=== PATIENT | male | born 1970 | race Caucasian/White ===

== ENCOUNTER 2016-11-13 14:28 | Emergency (ER) | payer MEDICAID, OTHER ==
[~2016-11-13] VITALS: Ht 193 cm; Wt 156.0 kg
[~2016-11-13 14:28] MED LIST: BACT800T5 PO; CLEO300C2 PO; CLIN1CAP5 PO; SULF-154 PO
[2016-11-13 14:35] VITALS: BP 159/99; PULSE 97; RESP 18; TEMP 99.1; O2SAT 99
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
[2016-11-13 15:30] LABS: AUTOMATED NEUTROPHIL # 8.1 TH/MM3 (1.8-7.7); BASOPHIL % 0.4 % (0.0-2.0); EOSINOPHIL # 0.2 TH/MM3 (0-0.4); EOSINOPHIL % 1.9 % (0.0-4.0); HEMATOCRIT 33.4 % (39.0-51.0); HEMO FLAGS DIFF FINAL; LYMPH % 7.3 % (9.0-44.0); LYMPHOCYTE # 0.7 TH/MM3 (1.0-4.8); MEAN CELL VOLUME 92.9 FL (80.0-100.0); MEAN CORPUSCULAR HGB CONC 34.5 % (32.0-36.0); MONO % 11.5 % (0.0-8.0); NEUT % 78.9 % (16.0-70.0); PLATELET COUNT 115 TH/MM3 (150-450); RED BLOOD COUNT 3.59 MIL/MM3 (4.50-5.90); RED CELL DISTRIBUTION WIDTH 13.4 % (11.6-17.2); WHITE BLOOD COUNT 10.2 TH/MM3 (4.0-11.0)
[2016-11-13 15:43] LABS: APTT (PATIENT) 31.3 SEC (24.3-30.1); PROTHROMBIN TIME - PATIENT 11.3 SEC (9.8-11.6)
--- NOTE | 2016-11-13 16:01 | RADHPO ---
EXAM DATE/TIME: 11/13/2016 15:27 [facility] COMPARISON: US LEG LEFT VENOUS DOPPLER, June 19, 2016, 18:32. INDICATIONS : Left leg swelling and pain. MEDICAL HISTORY : Hypertension. Chronic obstructive pulmonary disease. Diabetes mellitus type 2. CHF. Sleep apnea. M orbid obese. Arthritis. Gout. Prostate cancer. MRSA. SURGICAL HISTORY : Right carpal tunnel surgery. ENCOUNTER: Initial ACUITY: 2 weeks PAIN SCORE: 8/10 LOCATION: Left leg. TECHNIQUE: Venous ultrasound of the leg was performed from the inguinal ligament to the proximal calf. Real-coral e, color Doppler and spectral tracing, compression and augmentation techniques were used. FINDINGS: There is normal compressibility of the deep venous system from the inguinal region to the proximal ca lf. No echogenic clot is seen in the lumen of the common femoral, femoral, popliteal, and posterior tibial veins. There is a normal response of the venous system to proximal and distal augmentation an d respiration. CONCLUSION: 1. No evidence of deep venous thrombosis. Hong Huffman MD on November 13, 2016 at 16:00 Board Certified Radiologist. This report was verified electronically.
[2016-11-13] MEDS ORDERED: BACT800T5 PO (16:29)
[2016-11-13] MEDS ORDERED: CLINDAMYCIN INJ 900 MG in SODIUM CHLORIDE 0.9% INJ 100 ML IV ONE (16:30)
[2016-11-13 17:42] VITALS: BP 145/81
[2017-03-04] MEDS ORDERED: PRED20 PO (09:06)
[2017-03-26] MEDS ORDERED: MULTTAB67 PO (13:47)
[2017-03-26] MEDS ORDERED: POTA10CA PO (14:02)
[2017-03-26] MEDS ORDERED: MAGO400T2 (14:02)
[2017-03-26] MEDS ORDERED: LOSA50TA PO (14:02)
[2017-03-26] MEDS ORDERED: LOPE-1 PO (14:06)
[2017-03-26] MEDS ORDERED: GAS-CAP3 PO (14:06)
[2017-03-26] MEDS ORDERED: PEPT262S PO (14:06)
[2017-03-26] MEDS ORDERED: SACC1CAP3 PO (14:06)
[2017-03-26] MEDS ORDERED: CIPR500T2 PO (15:09)
[2017-04-01] MEDS ORDERED: LOSA100T PO (10:13)
== END 2016-11-13 17:54 | disposition home or self-care (01) ==
LOC: PHED 14:28
DX: L03.116 Cellulitis of left lower limb (principal); D69.6 Thrombocytopenia, unspecified; M06.9 Rheumatoid arthritis, unspecified; F41.8 Other specified anxiety disorders; I10 Essential (primary) hypertension; Y93.89 Activity, other specified; Y99.9 Unspecified external cause status
CPT/HCPCS: 85025; 85610; 85730; 93971; 96365

== ENCOUNTER 2016-11-18 14:01 | Inpatient (IN) | payer MEDICAID, OTHER ==
[~2016-11-18] VITALS: Ht 193 cm; Wt 156.3 kg
[2016-11-18] VITALS (8 sets, daily range): BP systolic 135–149; BP diastolic 70–84; PULSE 80–96; RESP 17–18; TEMP 97.7; O2SAT 96–100
[~2016-11-18 14:01] MED LIST changes: -CLEO300C2 PO; -CLIN1CAP5 PO; -SULF-154 PO
[2016-11-18] MEDS ORDERED: ANTICRE6 PO (15:22)
[2016-11-18] MEDS ORDERED: PIPERACIL-TAZO 4.5 GM PREMIX 100 ML IV STA (16:28)
[2016-11-18] MEDS ORDERED: VANCOMYCIN INJ 2,300 MG in SODIUM CHLORID 0.9% 500 ML INJ 500 ML IV STA (16:28)
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
[2016-11-18 16:41] LABS: AUTOMATED NEUTROPHIL # 9.6 TH/MM3 (1.8-7.7); BASOPHIL # 0.2 TH/MM3 (0-0.2); BASOPHIL % 1.8 % (0.0-2.0); EOSINOPHIL # 0.4 TH/MM3 (0-0.4); EOSINOPHIL % 3.5 % (0.0-4.0); HEMATOCRIT 33.3 % (39.0-51.0); HEMO FLAGS DIFF FINAL; LYMPH % 8.3 % (9.0-44.0); MEAN CELL VOLUME 94.5 FL (80.0-100.0); MEAN CORPUSCULAR HEMOGLOBIN 32.5 PG (27.0-34.0); MEAN CORPUSCULAR HGB CONC 34.4 % (32.0-36.0); NEUT % 78.4 % (16.0-70.0); PLATELET COUNT 142 TH/MM3 (150-450); RED BLOOD COUNT 3.53 MIL/MM3 (4.50-5.90); RED CELL DISTRIBUTION WIDTH 14.1 % (11.6-17.2); WHITE BLOOD COUNT 12.2 TH/MM3 (4.0-11.0)
[2016-11-18 16:50] LABS: CHLORIDE 97 MEQ/L (98-107); SODIUM (NA) 136 MEQ/L (136-145)
[2016-11-18 16:54] LABS: ANION GAP 23 MEQ/L (5-15); BICARBONATE 16.4 MEQ/L (21.0-32.0)
[2016-11-18 16:54] LABS: INTERNATIONAL NORMALIZED RATIO 1.1 RATIO; PROTHROMBIN TIME - PATIENT 11.8 SEC (9.8-11.6)
[2016-11-18 16:57] LABS: ALT (GPT) 14 U/L (12-78); AST (GOT) 41 U/L (15-37); GLOMERULAR FILTRATION RATE 3 ML/MIN (>89)
[2016-11-18 16:58] LABS: TOTAL BILIRUBIN ADULT 0.8 MG/DL (0.2-1.0)
[2016-11-18 16:59] LABS: BLOOD UREA NITROGEN 248 MG/DL (7-18)
[2016-11-18 17:00] LABS: ALKALINE PHOSPHATASE 61 U/L (45-117)
--- NOTE | 2016-11-18 17:12 | RADHPO ---
EXAM DATE/TIME: 11/18/2016 16:49 [facility] COMPARISON: No previous studies available for comparison. INDICATIONS : Fever, swelling to legs MEDICAL HISTORY : None. SURGICAL HISTORY : None. ENCOUNTER: Initial ACUITY: 2 weeks PAIN SCORE: 0/10 LOCATION: Bilateral chest FINDINGS: The cardiac silhouette is enlarged. The lungs are grossly clear. No effusions are seen. CONCLUSION: Cardiomegaly. Derek Rider MD on November 18, 2016 at 17:05 Board Certified Radiologist. This report was verified electronically.
[2016-11-18] MEDS ORDERED: ONDANSETRON HCL 4 MG/2 ML VIAL IV PUSH ONE (18:15)
[2016-11-18] MEDS ORDERED: SODIUM POLYSTYRENE SULFONATE SUSP 15 GM/60 ML CUP PO ONE (19:15)
[2016-11-18] MEDS ORDERED: CHLORHEXIDINE GLUCONATE 2 % 1 PACK (2 CLOTHS) TOP PRN (19:30)
[2016-11-18] MEDS ORDERED: ACETAMINOPHEN 325 MG TAB PO PRN (19:30)
[2016-11-18] MEDS ORDERED: Vancomycin Consult Pharmacy 1 EA OTHER SCH (19:30)
[2016-11-18] MEDS ORDERED: MISCELLANEOUS NURSING INFORMATION XX SCH (19:30)
[2016-11-18] MEDS ORDERED: BISACODYL 10 MG SUPP PR PRN (19:30)
[2016-11-18] MEDS: SODIUM CHLORIDE 0.9% FLUSH 5 ML FLUSH FLUSH SCH (20:12)
[2016-11-18] MEDS: ONDANSETRON HCL 4 MG/2 ML VIAL IVP PRN (20:16)
[2016-11-18 21:10] LABS: BLOOD, URINE LARGE (NEG); GLUCOSE,URINE NEG (NEG); KETONE, URINE NEG (NEG); NITRITE,URINE NEG (NEG); PH, URINE 5.5 (5.0-8.5)
[2016-11-18 21:25] LABS: METHOD OF COLLECTION A; URINE COLOR AMBER (YELLW/STRAW)
[2016-11-18 21:26] LABS: MUCUS URINE FEW /lpf (OCC)
[2016-11-18 21:27] LABS: COMMENT (UR) CULT NOT INDICATED; CULTURE IF INDICATED CULT NOT INDICATED
[2016-11-18 21:28] LABS: HYALINE CAST, URINE 0-2 /lpf (RARE); TRANSITIONAL EPI CELLS, URINE 0-5 /hpf
[2016-11-18] MEDS: LORazepam 2 MG/ML VIAL IV PUSH PRN (21:50)
[2016-11-18] MEDS: PIPERACIL-TAZO 2.25 GM PREMIX 50 ML IV SCH (23:46)
[2016-11-19] VITALS (19 sets, daily range): BP systolic 115–158; BP diastolic 70–100; PULSE 78–117; RESP 18–22; TEMP 97.4–98.2; O2SAT 94–100
[2016-11-19] MEDS ORDERED: diphenhydrAMINE HCL 50 MG/ML VIAL IV PUSH PRN
[2016-11-19] MEDS: MORPHINE SULFATE 4 MG/ML INJ IV PRN (01:23)
[2016-11-19] MEDS: CHLORHEXIDINE GLUCONATE 2 % 1 PACK (2 CLOTHS) TOP SCH (04:00)
[2016-11-19] MEDS: ONDANSETRON HCL 4 MG/2 ML VIAL IVP PRN (05:06)
[2016-11-19 05:12] LABS: AUTOMATED NEUTROPHIL # 5.7 TH/MM3 (1.8-7.7); BASOPHIL # 0.1 TH/MM3 (0-0.2); BASOPHIL % 0.8 % (0.0-2.0); EOSINOPHIL # 0.5 TH/MM3 (0-0.4); EOSINOPHIL % 6.1 % (0.0-4.0); HEMATOCRIT 29.6 % (39.0-51.0); LYMPH % 12.3 % (9.0-44.0); MEAN CELL VOLUME 93.9 FL (80.0-100.0); MEAN CORPUSCULAR HEMOGLOBIN 32.7 PG (27.0-34.0); MEAN CORPUSCULAR HGB CONC 34.8 % (32.0-36.0); MONO % 12.8 % (0.0-8.0); PLATELET COUNT 92 TH/MM3 (150-450); RED BLOOD COUNT 3.15 MIL/MM3 (4.50-5.90); RED CELL DISTRIBUTION WIDTH 14.4 % (11.6-17.2); WHITE BLOOD COUNT 8.3 TH/MM3 (4.0-11.0)
[2016-11-19 05:13] LABS: HEMO FLAGS AUTO DIFF
[2016-11-19] MEDS: PIPERACIL-TAZO 2.25 GM PREMIX 50 ML IV SCH ×4 (05:57→23:35)
[2016-11-19 07:01] LABS: BLOOD UREA NITROGEN 249 MG/DL (7-18)
[2016-11-19 07:02] LABS: ALKALINE PHOSPHATASE 56 U/L (45-117); ALT (GPT) 13 U/L (12-78); AST (GOT) 19 U/L (15-37); GLOMERULAR FILTRATION RATE 3 ML/MIN (>89)
[2016-11-19 07:03] LABS: ANION GAP 20 MEQ/L (5-15); BICARBONATE 13.8 MEQ/L (21.0-32.0); CHLORIDE 100 MEQ/L (98-107); POTASSIUM 5.4 MEQ/L (3.5-5.1); SODIUM (NA) 134 MEQ/L (136-145); TOTAL BILIRUBIN ADULT 0.7 MG/DL (0.2-1.0)
[2016-11-19 07:49] LABS: PLATELET ESTIMATE SMEAR LOW (NORMAL); PLATELET MORPHOLOGY NORMAL (NORMAL); SCAN/DIFF AUTO DIFF CONFIRMED
[2016-11-19] MEDS ORDERED: SODIUM CHLOR 0.9% 1000 ML INJ 1,000 ML IV PRN ×2 (09:14)
--- NOTE | 2016-11-19 09:14 | PD.CONS ---
[facility] Service Nephrology Consult Requested By Reason for Consult Acute Renal Failure Primary Care Physician No Primary Care Physician History of Present Illness This is a morbidly obese 46 y/o male who presented to ER with nausea/ vomiting. Found to be in renal failure with Cr 17.2, BUN 249, K 5.4, CO2 13. We were consulted for further management. After discussion, the patient reports decreased urine output for approximately 4 weeks with associated nausea/ vomiting. On the he was given Bactrim for suspected cellulitis but he had worsening nausea/vomiting and was switched to unknown alternative antibiotic. Today he is sleepy, confused, reporting decreased urine output. A bejarano is not in place. Of note he was taking Aleve BID until the around the . He is a full code at this time. (Helen Gaspar) Review of Systems Constitutional: COMPLAINS OF: Fatigue, Weight gain, Change in appetite Cardiovascular: COMPLAINS OF: Lower Extremity Edema Gastrointestinal: COMPLAINS OF: Nausea, Vomiting, DENIES: Constipation ( Helen Gaspar) Past Family Social History Allergies: Coded Allergies: Bactrim (Verified Allergy, Severe, 11/19/16) Past Medical History Previous cellulitis Morbid obesity Past Surgical History Jaw, finger Reported Medications None Active Ordered Medications Current Medications Medications (Trade) Dose Ordered Sig/Noni Route Start Time Stop Time Status Last Admin (Zosyn 2.25 Gm Premix) 50 ml @ 100 mls/hr Q6H IV 11/19/16 00:00 11/19/16 05:57 (NS Flush) 2 ml UNSCH PRN FLUSH 11/18/16 19:30 (NS Flush) 2 ml BID FLUSH 11/18/16 21:00 11/19/16 09:23 (Zofran Inj) 4 mg Q6H PRN IVP 11/18/16 19:30 11/19/16 05:06 (Dulcolax Supp) 10 mg DAILY PRN ND 11/18/16 19:30 (Tylenol) 650 mg Q6H PRN PO 11/18/16 19:30 (Milo 5-325 Mg) 1 tab Q4H PRN PO 11/18/16 19:30 (Morphine Inj) 2 mg Q3H PRN IV 11/18/16 19:30 11/19/16 01:23 Miscellaneous Information 1 Q361D XX 11/18/16 19:30 11/18/16 19:30 (Chlorhexidine 2% Cloth) 3 pack Taper DAILY@04 TOP 11/19/16 04:00 11/15/17 03:59 (Chlorhexidine 2% Cloth) 3 pack UNSCH PRN TOP 11/18/16 19:30 (Ativan Inj) 1 mg Q4H PRN IV PUSH 11/18/16 21:30 11/18/16 21:50 Diphenhydramine HCl 25 mg 25 mg Q4H PRN IV PUSH 11/19/16 00:00 11/18/16 23:59 Methylprednisolone Sodium Succinate 500 mg/Dextrose 100 ml @ 200 mls/hr DAILY IV 11/19/16 09:15 11/22/16 09:00 11/19/16 11:26 (NS 1000 ml Inj) 1,000 ml @ 0 mls/hr Q0M PRN IV 11/19/16 09:14 Heparin Sodium (Porcine) 8000 units 8,000 units UNSCH PRN IVF 11/19/16 09:15 Sodium Chloride 1,000 ml @ 200 mls/hr Q5H PRN IV 11/19/16 09:14 (NS 1000 ml Inj) 1,000 ml @ 0 mls/hr Q0M PRN IV 11/19/16 09:14 (Mannitol Inj) 12.5 gm UNSCH PRN IV 11/19/16 09:15 (Albumin 25% Inj) 25 gm UNSCH PRN IV 11/19/16 09:15 (NS Flush) 5 ml UNSCH PRN IVF 11/19/16 09:15 (Heparin Inj) UNSCH PRN .XX 11/19/16 09:15 (Gentamicin (Dialysis) Inj) 20 mg UNSCH PRN IV 11/19/16 09:15 (Zofran Inj) 4 mg UNSCH PRN IV 11/19/16 09:15 (Tylenol) 650 mg UNSCH PRN PO 11/19/16 09:15 (Benadryl) 25 mg UNSCH PRN PO 11/19/16 09:15 (Nitrostat Sl) 0.4 mg UNSCH PRN SL 11/19/16 09:15 (Catapres) 0.1 mg UNSCH PRN PO 11/19/16 09:15 (Gelfoam 12 Mm/7 Mm Top) 1 foam UNSCH PRN TOP 11/19/16 09:15 Family History No hx of renal disorders He has CAD in his family history Social History , lives alone locally He is a non smoker Heavy ETOH, quit 13 mo ago Captain by trade, 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 No drug use Independent, full code (Helen Gaspar) Physical Exam Vital Signs Vital Signs Date Time Temp Pulse Resp B/P Pulse Ox O2 Delivery O2 Flow Rate FiO2 11/19/16 08:16 78 11/19/16 07:59 78 11/19/16 03:08 81 11/19/16 03:08 97.4 87 18 143/82 97 11/19/16 02:12 93 18 115/70 98 11/19/16 01:50 80 18 136/82 100 Room Air 11/19/16 01:50 80 18 100 Room Air 11/19/16 01:48 18 11/18/16 23:32 83 18 98 Room Air 11/18/16 23:32 83 18 137/83 98 Room Air 11/18/16 22:36 96 18 135/70 99 Room Air 11/18/16 21:21 82 18 96 Room Air 11/18/16 21:21 82 18 135/76 96 Room Air 11/18/16 20:13 80 18 148/81 100 Room Air 11/18/16 19:04 80 18 140/72 100 Room Air 11/18/16 19:04 82 18 100 Room Air 11/18/16 17:52 89 17 148/76 100 Room Air 11/18/16 16:45 97 Room Air 11/18/16 14:09 97.7 91 18 149/84 99 Physical Exam Morbidly obese male, sleeping, takes time to converse due to confusion once awake, oriented x 3 but slow to answer Lungs: clear but diminished in bases Abd: round, obese, non tender, no hernias CV: S1/S2, regular rate/rhythm Ext: 2+ edema, some erythema bilaterally; macular rash on right Laboratory Laboratory Tests Test 11/18/16 11/18/16 11/18/16 11/19/16 16:35 17:47 20:40 04:36 White Blood Count 12.2 8.3 Red Blood Count 3.53 3.15 Hemoglobin 11.5 10.3 Hematocrit 33.3 29.6 Mean Corpuscular Volume 94.5 93.9 Mean Corpuscular Hemoglobin 32.5 32.7 Mean Corpuscular Hemoglobin 34.4 34.8 Concent Red Cell Distribution Width 14.1 14.4 Platelet Count 142 92 Mean Platelet Volume 8.2 7.8 Neutrophils (%) (Auto) 78.4 68.0 Lymphocytes (%) (Auto) 8.3 12.3 Monocytes (%) (Auto) 8.0 12.8 Eosinophils (%) (Auto) 3.5 6.1 Basophils (%) (Auto) 1.8 0.8 Neutrophils # (Auto) 9.6 5.7 Lymphocytes # (Auto) 1.0 1.0 Monocytes # (Auto) 1.0 1.1 Eosinophils # (Auto) 0.4 0.5 Basophils # (Auto) 0.2 0.1 CBC Comment DIFF FINAL AUTO DIFF Differential Comment AUTO DIFF CONFIRMED Prothrombin Time 11.8 Prothromb Time International 1.1 Ratio Activated Partial 22.0 Thromboplast Time Lactic Acid Level 0.8 Sodium Level 136 134 Potassium Level 6.0 5.4 Chloride Level 97 100 Carbon Dioxide Level 16.4 13.8 Anion Gap 23 20 Blood Urea Nitrogen 248 249 Creatinine 17.00 17.28 Estimat Glomerular Filtration 3 3 Rate Random Glucose 88 96 Calcium Level 8.1 7.9 Total Bilirubin 0.8 0.7 Aspartate Amino Transf 41 19 (AST/SGOT) Alanine Aminotransferase 14 13 (ALT/SGPT) Alkaline Phosphatase 61 56 Total Protein 6.5 5.6 Albumin 2.0 1.8 Urine Collection Type A Urine Color MIKAYLA Urine Turbidity MOD Urine pH 5.5 Urine Specific [place] 1.034 Urine Protein 300 OR GREATER Urine Glucose (UA) NEG Urine Ketones NEG Urine Occult Blood LARGE Urine Nitrite NEG Urine Bilirubin NEG Urine Leukocyte Esterase NEG Urine RBC 25-49 Urine WBC 3-5 Urine Squamous Epithelial 6-8 Cells Urine Transitional Epithelial 0-5 Cells Urine Amorphous Sediment MOD Urine Hyaline Casts 0-2 Urine Mucus FEW Microscopic Urinalysis Comment CULT NOT INDICATED Platelet Estimate LOW Platelet Morphology Comment NORMAL Date/Time Procedure Status Source Growth 11/18/16 16:35 Aerobic Blood Culture Received Blood Peripheral Pending 11/18/16 16:35 Anaerobic Blood Culture Received Blood Peripheral Pending (Helen Gaspar) Result Diagram: 11/19/16 0436 11/19/16 0436 Imaging Last 72 hours Impressions Chest X-Ray 11/18/16 1628 Signed Impressions: Service Date/Time: Friday, November 18, 2016 16:49 - CONCLUSION: Cardiomegaly. Derek Rider MD (Helen Gaspar) Assessment and Plan Problem List: (1) Acute renal failure Plan: In a patient with normal renal function in May 2016 This may have been ongoing for weeks, possibly worsened by Bactrim use he also was taking Aleve daily at that time now he has become auric will have bejarano placed, obtain CT abd/pelvis to rule out obstructive causes If that is negative, then we will proceed with dialysis vas cath to be placed, dialysis today and tomorrow, orders entered to cover interstitial diseases we will begin Solumedrol IV x 3 days, 500 mg he has proteinuria, quantification and serologies ordered no IVF required daily renal panel and urine output measurement avoid nephrotoxins (Helen Gaspar) Assessment and Plan patient was seen and examined. Etiology of SAL is unclear, will have to consider RPGN. Was on Bactrim, but it may not be culprit. Serologies ordered. Also noted thrombocytopenia. Likely needs renal biopsy. Obtain LDH and haptoglobin. Ct revealed no hydronephrosis but findings suggestive of cirrhosis with splenomegaly. Thrombocytopenia could be due to hypersplenism. (Fredo Mayer MD) Helen Gaspar Nov 19, 2016 09:14 Fredo Mayer MD Nov 20, 2016 09:26
[2016-11-19] MEDS ORDERED: NITROGLYCERIN 0.4 MG SL 25 TABS/BTL SL PRN (09:15)
[2016-11-19] MEDS ORDERED: diphenhydrAMINE HCL 25 MG CAP PO PRN (09:15)
[2016-11-19] MEDS ORDERED: MANNITOL 12.5 GM/50 ML VIAL IV PRN (09:15)
[2016-11-19] MEDS ORDERED: ACETAMINOPHEN 325 MG TAB PO PRN (09:15)
[2016-11-19] MEDS ORDERED: HEPARIN SODIUM - IV 10,000 UNITS/10 ML VIAL IVF PRN ×2 (09:15→14:15)
[2016-11-19] MEDS ORDERED: SODIUM CHLORIDE 0.9% FLUSH 5 ML FLUSH IVF PRN ×2 (09:15→14:15)
[2016-11-19] MEDS ORDERED: cloNIDine HCL 0.1 MG TAB PO PRN (09:15)
[2016-11-19] MEDS: SODIUM CHLORIDE 0.9% FLUSH 5 ML FLUSH FLUSH SCH ×2 (09:23→21:08)
--- NOTE | 2016-11-19 10:38 | HHI.HP ---
HPI Service [facility] Hospitalists Primary Care Physician No Primary Care Physician Admission Diagnosis RENAL FAILURE, CELLULITIS LEFT LEG Diagnoses: (1) Cellulitis of left leg (2) Thrombocytopenia (3) Acute renal failure Chief Complaint: Left Lower extremity cellulitis, Nausea/vomiting and abnormal BUN/creatinine Travel History International Travel<30 Days: No Contact w/Intl Traveler <30 Da: No Traveled to Known Affected Are: No History of Present Illness 46-year-old male with a history of recurrent lower extremity cellulitis was admitted to [facility] for evaluation of worsening renal function along with intractable nausea and vomiting and decreased urine output 4 weeks .Patient states on 11/09/16 after flying back in town from [place], he noticed swelling of the left lower extremity however on 11/13/16 he had erythema for which he was seen in the ED and started on Bactrim DS. After 2 days of treatment, patient has complained of nausea and vomiting and was advised to 1/2 tab, however there was no improvement. Patient was switched to a different antibiotic without any improvement. He continued to complain of extreme left lower extremity pain. On arrival in ED yesterday generate 2016 patient was found to have BUN/creatinine 2.48/17 and some electrolyte abnormalities along with thrombocytopenia. He denies any GI bleed. Review of Systems Other Other 12 systems reviewed and are negative except for the one mentioned in the history of present illness Past Family Social History Past Medical History Recovery alcoholic Past Surgical History Surgery to both lower extremities Reported Medications [Antibiotic] 1 Cap PO DIRECTED Allergies: Coded Allergies: Bactrim (Verified Allergy, Severe, 11/19/16) Family History Reviewed is significant for cancer, heart disease and diabetes Social History 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) Tobacco Use: No Substance Use: No (HX COCAINE USE, CHRONIC ALCOHOL ABUSE) Physical Exam Vital Signs Vital Signs Date Time Temp Pulse Resp B/P Pulse Ox O2 Delivery O2 Flow Rate FiO2 11/19/16 09:55 88 11/19/16 09:54 98.2 88 18 140/80 98 11/19/16 08:16 78 11/19/16 07:59 78 11/19/16 03:08 81 11/19/16 03:08 97.4 87 18 143/82 97 11/19/16 02:12 93 18 115/70 98 11/19/16 01:50 80 18 136/82 100 Room Air 11/19/16 01:50 80 18 100 Room Air 11/19/16 01:48 18 11/18/16 23:32 83 18 98 Room Air 11/18/16 23:32 83 18 137/83 98 Room Air 11/18/16 22:36 96 18 135/70 99 Room Air 11/18/16 21:21 82 18 96 Room Air 11/18/16 21:21 82 18 135/76 96 Room Air 11/18/16 20:13 80 18 148/81 100 Room Air 11/18/16 19:04 80 18 140/72 100 Room Air 11/18/16 19:04 82 18 100 Room Air 11/18/16 17:52 89 17 148/76 100 Room Air 11/18/16 16:45 97 Room Air 11/18/16 14:09 97.7 91 18 149/84 99 Physical Exam GENERAL: This is a well-nourished, well-developed obese patient, in no apparent distress. SKIN: Lower extremities both warm to touch, left with some mild erythema HEAD: Atraumatic. Normocephalic. No temporal or scalp tenderness. EYES: Pupils equal round and reactive. Extraocular motions intact. No scleral icterus. No injection or drainage. ENT: Nose without bleeding, purulent drainage or septal hematoma. Throat without erythema, tonsillar hypertrophy or exudate. Uvula midline. Airway patent. NECK: Trachea midline. No JVD or lymphadenopathy. Supple, nontender, no meningeal signs. CARDIOVASCULAR: Regular rate and rhythm without murmurs, gallops, or rubs. RESPIRATORY: Clear to auscultation. Breath sounds equal bilaterally. No wheezes , rales, or rhonchi. GASTROINTESTINAL: Abdomen soft, non-tender, nondistended. No hepato-splenomegaly , or palpable masses. No guarding. MUSCULOSKELETAL: Extremities without clubbing, cyanosis, or edema. No joint tenderness, effusion, or edema noted. No calf tenderness. Negative Homans sign bilaterally. NEUROLOGICAL: Awake and alert. Cranial nerves II through XII intact. Motor and sensory grossly within normal limits. Five out of 5 muscle strength in all muscle groups. Normal speech. Laboratory Laboratory Tests Test 11/18/16 11/18/16 11/18/16 11/19/16 16:35 17:47 20:40 04:36 White Blood Count 12.2 8.3 Red Blood Count 3.53 3.15 Hemoglobin 11.5 10.3 Hematocrit 33.3 29.6 Mean Corpuscular Volume 94.5 93.9 Mean Corpuscular Hemoglobin 32.5 32.7 Mean Corpuscular Hemoglobin 34.4 34.8 Concent Red Cell Distribution Width 14.1 14.4 Platelet Count 142 92 Mean Platelet Volume 8.2 7.8 Neutrophils (%) (Auto) 78.4 68.0 Lymphocytes (%) (Auto) 8.3 12.3 Monocytes (%) (Auto) 8.0 12.8 Eosinophils (%) (Auto) 3.5 6.1 Basophils (%) (Auto) 1.8 0.8 Neutrophils # (Auto) 9.6 5.7 Lymphocytes # (Auto) 1.0 1.0 Monocytes # (Auto) 1.0 1.1 Eosinophils # (Auto) 0.4 0.5 Basophils # (Auto) 0.2 0.1 CBC Comment DIFF FINAL AUTO DIFF Differential Comment AUTO DIFF CONFIRMED Prothrombin Time 11.8 Prothromb Time International 1.1 Ratio Activated Partial 22.0 Thromboplast Time Lactic Acid Level 0.8 Sodium Level 136 134 Potassium Level 6.0 5.4 Chloride Level 97 100 Carbon Dioxide Level 16.4 13.8 Anion Gap 23 20 Blood Urea Nitrogen 248 249 Creatinine 17.00 17.28 Estimat Glomerular Filtration 3 3 Rate Random Glucose 88 96 Calcium Level 8.1 7.9 Total Bilirubin 0.8 0.7 Aspartate Amino Transf 41 19 (AST/SGOT) Alanine Aminotransferase 14 13 (ALT/SGPT) Alkaline Phosphatase 61 56 Total Protein 6.5 5.6 Albumin 2.0 1.8 Urine Collection Type A Urine Color MIKAYLA Urine Turbidity MOD Urine pH 5.5 Urine Specific [place] 1.034 Urine Protein 300 OR GREATER Urine Glucose (UA) NEG Urine Ketones NEG Urine Occult Blood LARGE Urine Nitrite NEG Urine Bilirubin NEG Urine Leukocyte Esterase NEG Urine RBC 25-49 Urine WBC 3-5 Urine Squamous Epithelial 6-8 Cells Urine Transitional Epithelial 0-5 Cells Urine Amorphous Sediment MOD Urine Hyaline Casts 0-2 Urine Mucus FEW Microscopic Urinalysis Comment CULT NOT INDICATED Platelet Estimate LOW Platelet Morphology Comment NORMAL Date/Time Procedure Status Source Growth 11/18/16 16:35 Aerobic Blood Culture Received Blood Peripheral Pending 11/18/16 16:35 Anaerobic Blood Culture Received Blood Peripheral Pending Result Diagram: 11/19/16 0436 11/19/16 0436 Imaging Last Impressions Chest X-Ray 11/18/16 1628 Signed Impressions: Service Date/Time: Friday, November 18, 2016 16:49 - CONCLUSION: Cardiomegaly. Derek Rider MD Assessment and Plan Problem List: (1) Cellulitis of left leg ICD Code: L03.116 Status: Acute (2) Acute renal failure ICD Code: N17.9 Status: Acute (3) Thrombocytopenia ICD Code: D69.6 Status: Acute (4) Hyperkalemia ICD Code: E87.5 Status: Acute Assessment and Plan 46-year-old male with 1-Cellulitis left lower extremity: DVT ruled out with Doppler; status post vancomycin and Zosyn in ED 1 now currently on Zosyn renally dosed and follow culture 2-Acute renal failure: BUN/Cr 10/0.76 on 06/19/16 however on admission yesterday 11/18/16 BUN/creatinine 248/17. Nephrology has been consulted for evaluation for possible emergent hemodialysis as patient with decreased urine output 4 weeks. Check renal ultrasound and renal markers. Check hepatitis profile. Avoid all nephrotoxic drugs 3-Hyperkalemia: Improving status post treatment, management per nephrology 4-Thrombocytopenia: Likely medication side effect, however will check hepatitis profile 5-Intractable nausea and emesis: Check Lipase as well as CT Abdomen/Pelvis; Tx with antiemetic PRN GI Prophylaxis: PPI Code Status Full code Discussed Condition With Patient Physician Certification 2 Midnight Certification Type: Admission for Inpatient Services Order for Inpatient Services The services are ordered in accordance with Medicare regulations or non- Medicare payer requirements, as applicable. In the case of services not specified as inpatient-only, they are appropriately provided as inpatient services in accordance with the 2-midnight benchmark. Estimated LOS (days): 2 days is the estimated time the patient will need to remain in the hospital, assuming treatment plan goals are met and no additional complications. Post-Hospital Plan: Not yet determined Surendra Cooper MD Nov 19, 2016 10:38
[2016-11-19] MEDS: methylPREDNISolone SO SUCC INJ 500 MG in DEXTROSE 5% IN WATER 100ML INJ 100 ML IV SCH ×4 (10:50→11:26)
--- NOTE | 2016-11-19 11:53 | RADRPT ---
EXAM DATE/TIME: 11/19/2016 09:26 [facility] COMPARISON: CT ABDOMEN & PELVIS W CONTRAST, March 31, 2015, 16:53. INDICATIONS : Increased BUN/Creatinine. MEDICAL HISTORY : Arthritis. Substance and chronic alcohol use. SURGICAL HISTORY : Oral surgery. Abdominal surgery. Orthopedic surgery, knee and ankle. Right hand, tendon repair. ENCOUNTER: Initial ACUITY: 1 day PAIN SCORE: 0/10 LOCATION: Bilateral flank MEASUREMENTS: RIGHT KIDNEY: 14.8 x 8.2 x 6.8 cm LEFT KIDNEY: 15.5 x 6.0 x 6.1 cm FINDINGS: RIGHT KIDNEY: Renal cortex is normal in thickness and echotexture. No hydronephrosis, stone, or mass. LEFT KIDNEY: Renal cortex is normal in thickness and echotexture. No hydronephrosis, stone, or mass. BLADDER: Within normal limits given the degree of distension. CONCLUSION: Normal examination. Garrett Lopes MD on November 19, 2016 at 11:51 Board Certified Radiologist. This report was verified electronically.
[2016-11-19 12:05] LABS: HEMOGLOBIN A1b 0.8 %; HEMOGLOBIN Ao 84.5 %; HEMOGLOBIN F 1.1 %; HEMOGLOBIN LA1C 2.3 %
--- NOTE | 2016-11-19 14:06 | PD.RAD ---
Post Procedure Progress Note Pre Procedure Diagnosis: (1) Acute renal failure Post Procedure Diagnosis: (1) Acute renal failure Procedure Date: Nov 19, 2016 Supervising Radiologist: Horace Zapata Anesthesia: Local Plan of Activity Patient to Unit: ROPU Patient Condition: Good Additional Comments: Right IJ vascath placed without difficulty Catheter in good position and OK for use See PACS Report for procedural detail/treatment Horace Zapata MD Nov 19, 2016 14:06
--- NOTE | 2016-11-19 15:02 | RADRPT ---
EXAM DATE/TIME: 11/19/2016 13:56 [facility] COMPARISON: CT ABDOMEN & PELVIS W CONTRAST, March 31, 2015, 16:53. US KIDNEY/RENAL/BLADDE R, November 19, 2016, 9:26. INDICATIONS : Abdomen pain. ORAL CONTRAST: No oral contrast ingested. RADIATION DOSE: 9.96 CTDIvol (mGy) MEDICAL HISTORY : Pneumonia. SURGICAL HISTORY : Vas catheter ENCOUNTER: Initial ACUITY: 1 day PAIN SCALE: 0/10 LOCATION: Bilateral abdomen. TECHNIQUE: Volumetric scanning of the abdomen and pelvis was performed. Using automated exposure control and adjustment of the mA and/or kV according to patient size, radiation dose was kept as low as reasonably achievable to obtain optimal diagnostic quality images. FINDINGS: LOWER LUNGS: The visualized lower lungs are clear. LIVER: Lobular liver contour with normal density consistent with cirrhosis. Spleen remains enlarg ed. Varices are noted in the upper abdomen. SPLEEN: Splenomegaly PANCREAS: Within normal limits. KIDNEYS: Normal in size and shape. There is no mass, stone, or hydronephrosis. ADRENAL GLANDS: Within normal limits. VASCULAR: There is no aortic aneurysm. BOWEL/MESENTERY: The stomach, small bowel, and colon demonstrate no acute abnormality. There is no free intraperitoneal air or fluid. ABDOMINAL WALL: Within normal limits. RETROPERITONEUM: There is no lymphadenopathy. BLADDER: No wall thickening or mass. Paz catheter in place in a decompressed urinary bladder REPRODUCTIVE: Within normal limits. INGUINAL: There is no lymphadenopathy or hernia. MUSCULOSKELETAL: Within normal limits for patient age. CONCLUSION: Stable findings of cirrhosis and splenomegaly with varices. Otherwise negative. Garrett Lopes MD on November 19, 2016 at 14:57 Board Certified Radiologist. This report was verified electronically.
[2016-11-19] MEDS ORDERED: THROMBIN (TOPICAL) 5,000 UNIT VIAL ONE ×2 (16:58→19:50)
--- NOTE | 2016-11-19 17:06 | EKG ---
Date Performed: 11/18/2016 Time Performed: 19:18:30 PTAGE: 46 years EKG: Sinus rhythm with borderline 1st degree A-V block. Compared to prior tracing no significant change Borderline ECG PREVIOUS TRACING : 01/05/2008 09.10 DOCTOR: Percy Jeronimo Interpretating Date/Time 11/19/2016 17:03:44
[2016-11-19] MEDS: GELATIN 12 MM/7 MM FOAM TOP PRN ×2 (17:17→17:18)
[2016-11-19] MEDS: GENTAMICIN SULFATE (DIALYSIS USE ONLY) 20 MG/2 ML VIAL IV PRN (17:17)
[2016-11-19] MEDS: HEPARIN SODIUM - IV 10,000 UNITS/10 ML VIAL PRN (17:18)
[2016-11-19] MEDS ORDERED: GELATIN 12 MM/7 MM FOAM EXT ONE (18:01)
[2016-11-19] MEDS: ONDANSETRON HCL 4 MG/2 ML VIAL IV PRN ×2 (18:13→23:36)
[2016-11-19] MEDS: LORazepam 2 MG/ML VIAL IV PUSH PRN (18:13)
--- NOTE | 2016-11-19 18:46 | RADRPT ---
EXAM DATE/TIME: 11/19/2016 00:00 CORRECTION Corrected on: November 23, 2016; CORRECTION: Corrected examform information [facility] COMPARISON: No previous studies available for comparison. INDICATIONS : Patient is in need of thrombin injection due to post Vascath bleeding. MEDICAL HISTORY : 1. Cellulitis of left leg 2. Acute renal failure 3. Thrombocytopenia SURGICAL HISTORY : 1. Surgery to both lower extremities ENCOUNTER: Subsequent ACUITY: 1 week PAIN SCORE: 2/10 LOCATION: Left calf ACCESS SITE: Right MEDICATION(S): 1.) 2000 units Thrombin topical Topical DEVICE(S): 1.) Right IJ vein 12-7mm Gelfoam PROCEDURE : 1. hemostasis of the insertion site around a dialysis catheter The site was prepped in sterile fashion. Full sterile technique was used, including cap, mask, steri le gloves and gown and a large sterile sheet. Hand hygiene and 2% chlorhexidine and/or betadine/alco hol prep was utilized per protocol for cutaneous antisepsis. The skin and subcutaneous tissues were infiltrated with local anesthetic solution. The skin around the catheter exit site was evaluated. There was oozing from the subcutaneous tissues. The catheter was pulled back area was cauterized with a Bovie. A small patch of Gelfoam was soaked w ith 3 cc of thrombin. This was placed over top of the exit site of the catheter. Pressure dressing wa s placed above this. At the conclusion of the procedure there was no further bleeding from the insert ion site. CONCLUSION: Uncomplicated hemostasis around the catheter insertion site Horace Zapata MD on November 19, 2016 at 18:42 Board Certified Radiologist. This report was verified electronically. DR Marine Farmer on November 23, 2016 at 9:29 Board Certified Radiologist. This report was verified electronically.
--- NOTE | 2016-11-19 18:48 | RADRPT ---
EXAM DATE/TIME: 11/19/2016 13:38 [facility] COMPARISON: PERCUTANEOUS HEMOSTASIS, November 19, 2016, 0:00. INDICATIONS : Acute renal failure. Cellulitis of left leg. MEDICAL HISTORY : 1. Cellulitis of left leg 2. Acute renal failure 3. Thrombocytopenia SURGICAL HISTORY : 1. Abd surgery 2. oral surgery ENCOUNTER: Initial ACUITY: 1 week PAIN SCORE: 2/10 LOCATION: Left claf FLUORO TIME: 0.9 minutes ACCESS: Right internal jugular vein DEVICE(S): 1.) 14 [place] dual lumen 20 cm Schon catheter PROCEDURE : 1. Ultrasound guided venipuncture. 2. Fluoroscopic guidance. 3. Central line placement. The risks, benefits and alternatives to the procedure were explained and verbal and written consent w as obtained. The site was prepped in sterile fashion. Full sterile technique was used, including ca p, mask, sterile gloves and gown and a large sterile sheet. Hand hygiene and 2% chlorhexidine prep w as utilized per protocol for cutaneous antisepsis with appropriate dry time for site. The skin and subcutaneous tissues were infiltrated with local anesthetic solution. A suitable site a aislinn the vein was selected with ultrasound and fluoroscopic guidance. A small incision was made. Th e vein was accessed under direct ultrasound visualization using the micropuncture technique. The marino ropuncture set was exchanged for a 0.035 wire. The tract was dilated. The catheter was advanced int o position under direct fluoroscopic visualization. The catheter was fixed in place with suture and a sterile dressing was applied. The patient tolerated the procedure well and there were no complications. CONCLUSION: Uncomplicated line placement as above. Horace Zapata MD on November 19, 2016 at 18:46 Board Certified Radiologist. This report was verified electronically.
[2016-11-19] MEDS ORDERED: PROTAMINE SULFATE 50 MG/5 ML VIAL ONE (19:22)
[2016-11-19] MEDS: ACETAMINOPHEN/HYDROcodone 325 MG/5 MG TAB PO PRN (21:06)
[2016-11-19 21:11] LABS: MEAN CORPUSCULAR HGB CONC 36.4 % (32.0-36.0)
[2016-11-20] VITALS (20 sets, daily range): BP systolic 132–162; BP diastolic 74–98; PULSE 76–100; RESP 18–22; TEMP 97.4–98.4; O2SAT 94–98
[2016-11-20] MEDS: CHLORHEXIDINE GLUCONATE 2 % 1 PACK (2 CLOTHS) TOP SCH (04:00)
[2016-11-20] MEDS: ONDANSETRON HCL 4 MG/2 ML VIAL IV PRN ×3 (04:28→19:25)
[2016-11-20] MEDS: MORPHINE SULFATE 4 MG/ML INJ IV PRN ×3 (04:28→17:06)
[2016-11-20] MEDS: ACETAMINOPHEN/HYDROcodone 325 MG/5 MG TAB PO PRN (05:12)
[2016-11-20] MEDS: PIPERACIL-TAZO 2.25 GM PREMIX 50 ML IV SCH ×4 (05:12→23:08)
[2016-11-20 07:44] LABS: AUTOMATED NEUTROPHIL # 6.3 TH/MM3 (1.8-7.7); BASOPHIL % 0.1 % (0.0-2.0); HEMATOCRIT 28.2 % (39.0-51.0); LYMPH % 5.3 % (9.0-44.0); LYMPHOCYTE # 0.4 TH/MM3 (1.0-4.8); MEAN CORPUSCULAR HEMOGLOBIN 33.1 PG (27.0-34.0); MONO % 0.9 % (0.0-8.0); NEUT % 93.7 % (16.0-70.0); PLATELET COUNT 88 TH/MM3 (150-450); RED CELL DISTRIBUTION WIDTH 14.3 % (11.6-17.2); WHITE BLOOD COUNT 6.7 TH/MM3 (4.0-11.0)
[2016-11-20 07:54] LABS: HEMO FLAGS AUTO DIFF
[2016-11-20] MEDS: LORazepam 2 MG/ML VIAL IV PUSH PRN (08:05)
[2016-11-20 08:11] LABS: ANION GAP 20 MEQ/L (5-15); AST (GOT) 18 U/L (15-37); BICARBONATE 15.7 MEQ/L (21.0-32.0); CHLORIDE 96 MEQ/L (98-107); GLOMERULAR FILTRATION RATE 3 ML/MIN (>89); POTASSIUM 5.4 MEQ/L (3.5-5.1); SODIUM (NA) 132 MEQ/L (136-145)
[2016-11-20] MEDS: SODIUM CHLORIDE 0.9% FLUSH 5 ML FLUSH FLUSH SCH ×2 (08:14→20:42)
[2016-11-20] MEDS: methylPREDNISolone SO SUCC INJ 500 MG in DEXTROSE 5% IN WATER 100ML INJ 100 ML IV SCH ×2 (08:14)
[2016-11-20 08:15] LABS: ALKALINE PHOSPHATASE 56 U/L (45-117); ALT (GPT) 14 U/L (12-78); TOTAL BILIRUBIN ADULT 0.6 MG/DL (0.2-1.0)
[2016-11-20 08:45] LABS: BLOOD UREA NITROGEN 215 MG/DL (7-18); CREATINE KINASE 67 U/L (39-308)
[2016-11-20 09:25] LABS: PLATELET ESTIMATE SMEAR LOW (NORMAL); PLATELET MORPHOLOGY NORMAL (NORMAL); SCAN/DIFF AUTO DIFF CONFIRMED
[2016-11-20 10:12] LABS: HEPATITIS B SURFACE ANTIBODY 0 mIU/mL
--- NOTE | 2016-11-20 10:32 | HHI.PR ---
Subjective Remarks Follow-up acute kidney injury requiring emergent dialysis/cellulitis of lower extremities 11/20/16-patient seen and examined, he had emergent hemodialysis yesterday. Currently complaining of back soreness otherwise stable. Renal indices drain down slightly. Afebrile. Objective Vitals Vital Signs Date Time Temp Pulse Resp B/P Pulse Ox O2 Delivery O2 Flow Rate FiO2 11/20/16 09:16 98.0 92 18 150/82 98 11/20/16 09:16 92 11/20/16 07:50 90 11/20/16 06:00 88 11/20/16 05:00 91 11/20/16 04:00 98 11/20/16 04:00 98.4 91 151/88 94 11/20/16 03:00 94 11/20/16 02:00 93 11/20/16 01:00 100 11/20/16 00:00 97 11/20/16 00:00 97.9 97 22 150/98 94 11/19/16 23:00 106 11/19/16 22:00 101 11/19/16 22:00 98.0 103 22 158/100 96 11/19/16 21:24 98 21 11/19/16 21:00 117 11/19/16 19:00 99 11/19/16 18:17 94 11/19/16 13:02 97.8 90 18 139/80 98 11/19/16 13:01 90 11/19/16 12:59 88 11/19/16 11:38 82 11/19/16 10:36 86 I/O 11/19/16 11/19/16 11/19/16 11/20/16 11/20/16 11/20/16 07:00 15:00 23:00 07:00 15:00 23:00 Intake Total 250 ml 150 ml 1060 ml 0 ml Output Total 2000 ml 50 ml Balance 250 ml -1850 ml 1010 ml 0 ml Intake Oral 250 ml 960 ml IV Total 150 ml 100 ml 0 ml Output Urine Total 50 ml Hemodialysis 2000 ml # Voids 1 # Bowel Movements 3 Result Diagram: 11/20/1671611/20/16716 Imaging Last Impressions Catheter Placement X-Ray 11/19/16 1058 Signed Impressions: Service Date/Time: Saturday, November 19, 2016 13:38 - CONCLUSION: Uncomplicated line placement as above. Horace Zapata MD Renal Ultrasound 11/19/16 0000 Signed Impressions: Service Date/Time: Saturday, November 19, 2016 09:26 - CONCLUSION: Normal examination. Garrett Lopes MD Radiology Special Procedure 11/19/16 0000 Signed Impressions: Service Date/Time: Saturday, November 19, 2016 00:00 - CONCLUSION: Uncomplicated hemostasis around the catheter insertion site Horace Zapata MD Abdomen/Pelvis CT 11/19/16 0000 Signed Impressions: Service Date/Time: Saturday, November 19, 2016 13:56 - CONCLUSION: Stable findings of cirrhosis and splenomegaly with varices. Otherwise negative. Garrett Lopes MD Chest X-Ray 11/18/16 1628 Signed Impressions: Service Date/Time: Friday, November 18, 2016 16:49 - CONCLUSION: Cardiomegaly. Derek Rider MD Objective Remarks GENERAL: NAD SKIN: Warm and dry. Right lower extremity erythema HEAD: Normocephalic. EYES: No scleral icterus. No injection or drainage. NECK: Supple, trachea midline. No JVD or lymphadenopathy. Vas-Cath in place right neck CARDIOVASCULAR: Regular rate and rhythm without murmurs, gallops, or rubs. RESPIRATORY: Breath sounds equal bilaterally. No accessory muscle use. GASTROINTESTINAL: Abdomen soft, non-tender, nondistended. MUSCULOSKELETAL: No cyanosis, or edema. BACK: Nontender without obvious deformity. No CVA tenderness. A/P Problem List: (1) Cellulitis of left leg ICD Code: L03.116 Status: Acute (2) Acute renal failure ICD Code: N17.9 Status: Acute (3) Thrombocytopenia ICD Code: D69.6 Status: Acute (4) Hyperkalemia ICD Code: E87.5 Status: Acute Assessment and Plan 46-year-old male with 1-Cellulitis left lower extremity: DVT ruled out with Doppler; status post vancomycin and Zosyn in ED 1 now currently on Zosyn IV and follow culture 2-Acute renal failure: BUN/Cr 10/0.76 on 06/19/16 however on admission yesterday 11/18/16 BUN/creatinine 248/17. Patient was previously treated with Bactrim DS. Nephrology was consulted, Vas-Cath was placed 11/19/16 and patient underwent emergent hemodialysis. Hemodialysis per nephrology . Hepatitis profile negative and Renal Serologies pending. Renal ultrasound noted. Patient will likely need renal biopsy for definite diagnosis. Continue to monitor BUN and creatinine. Avoid all nephrotoxic drugs. 3-Hyperkalemia: management per nephrology 4-Thrombocytopenia: Likely medication side effect versus liver cirrhosis has CT abdomen/pelvis with finding of cirrhosis and splenomegaly with varices. Otherwise negative as a hepatitis profile negative. At this point, will hold on hematology consultation. Patient will need outpatient evaluation from gastroenterology secondary to cirrhosis which appears to be stable. 5-Intractable nausea and emesis: Now resolved. Lipase within normal limits and CT abdomen/pelvis with finding of cirrhosis and splenomegaly with varices GI Prophylaxis: PPI Surendra Cooper MD Nov 20, 2016 10:32
[2016-11-20 10:47] LABS: TOTAL PROTEIN SPE 5.9 GM/DL (6.0-7.6)
--- NOTE | 2016-11-20 12:19 | HHI.NPPN ---
Subjective Complaints: Confused, Obesity General Problems: Edema Renal Failure: Acute Interval History Vascath placed and HD initiated yesterday. Seen during dialysis again today. He is anuric. CT of abdomen showing cirrhosis. (Helen Gaspar) Review of Systems General Constitutional: Fatigue (Helen Gaspar) Respiratory Lungs: SOB (Helen Gaspar) Cardiovascular Cardiac: Edema (Helen Gaspar) Objective Data Data 11/19/16 11/20/16 19:00 07:00 Intake Total 150 ml 1060 ml Output Total 2000 ml 50 ml Balance -1850 ml 1010 ml Intake Oral 960 ml IV Total 150 ml 100 ml Output Urine Total 50 ml Hemodialysis 2000 ml Vital Signs Date Time Temp Pulse Resp B/P Pulse Ox O2 Delivery O2 Flow Rate FiO2 11/20/16 10:41 98 21 11/20/16 09:16 98.0 92 18 150/82 98 11/20/16 09:16 92 11/20/16 07:50 90 11/20/16 06:00 88 11/20/16 05:00 91 11/20/16 04:00 98 11/20/16 04:00 98.4 91 151/88 94 11/20/16 03:00 94 11/20/16 02:00 93 11/20/16 01:00 100 11/20/16 00:00 97 11/20/16 00:00 97.9 97 22 150/98 94 11/19/16 23:00 106 11/19/16 22:00 101 11/19/16 22:00 98.0 103 22 158/100 96 11/19/16 21:24 98 21 11/19/16 21:00 117 11/19/16 19:00 99 11/19/16 18:17 94 11/19/16 13:02 97.8 90 18 139/80 98 11/19/16 13:01 90 11/19/16 12:59 88 (Helen Gaspar) -: 11/20/16 0717 11/20/16 0717 Imaging Last 72 hours Impressions Catheter Placement X-Ray 11/19/16 1058 Signed Impressions: Service Date/Time: Saturday, November 19, 2016 13:38 - CONCLUSION: Uncomplicated line placement as above. Horace Zapata MD Renal Ultrasound 11/19/16 0000 Signed Impressions: Service Date/Time: Saturday, November 19, 2016 09:26 - CONCLUSION: Normal examination. Garrett Lopes MD Radiology Special Procedure 11/19/16 0000 Signed Impressions: Service Date/Time: Saturday, November 19, 2016 00:00 - CONCLUSION: Uncomplicated hemostasis around the catheter insertion site Horace Zapata MD Abdomen/Pelvis CT 11/19/16 0000 Signed Impressions: Service Date/Time: Saturday, November 19, 2016 13:56 - CONCLUSION: Stable findings of cirrhosis and splenomegaly with varices. Otherwise negative. Garrett Lopes MD Chest X-Ray 11/18/16 1628 Signed Impressions: Service Date/Time: Friday, November 18, 2016 16:49 - CONCLUSION: Cardiomegaly. Derek Rider MD Tubes & Lines: Vas-Cath, Bejarano (Chasity,Helen B. CHRONOMETER ADJUSTER) Physical Exam General Appearance: Well Developed, Well Nourished, No Acute Distress (ChasityHelen B. CHRONOMETER ADJUSTER) Eyes Eye Exam: Pupils Equal (ChasityHelen B. CHRONOMETER ADJUSTER) Throat Throat Exam: Oral Mucosa [place] & Moist (ChasityHelen B. CHRONOMETER ADJUSTER) Pulmonary Resp Exam: Clear Bilaterally, Breath Sounds Equal (Chasity,Helen B. CHRONOMETER ADJUSTER) Cardiology CV Exam: Regular, Normal Sinus Rhythm (ChasityHelen B. CHRONOMETER ADJUSTER) Gastrointestinal/Abdomen GI Exam: Soft, Non-Tender, Bowel Sounds Present (ChasityHelen B. CHRONOMETER ADJUSTER) Musculoskeletal MS Exam: Joints Intact, Normal Tone (Chasity,Helen B. CHRONOMETER ADJUSTER) Extremeties Extremities Exam: Pedal Pulses Palpable, Moderate Edema, Dependent Edema ( Chasity,Helen B. CHRONOMETER ADJUSTER) Neurologic Neuro Exam: Alert, Awake, Oriented, Speech Clear, Moving All Extremities ( Chasity,Helen B. CHRONOMETER ADJUSTER) Psychiatric Psych Exam: Appropriate Responses (ChasityHelen B. CHRONOMETER ADJUSTER) Assessment/Plan Discussed Condition With: Patient Assessment Summary: SAL/Acute Renal Failure, Fluid/Volume Overload, Proteinuria Problem List: (1) Acute renal failure Plan: In a patient with normal renal function in May 2016 he has become anuric, HD initiated 11/09 with 2L fluid removal seen during dialysis again today on a 2K, 300 BFR, goal 3L etiology of renal failure may be IgA nephropathy, it is unlikely it is due to Bactrim use he has 4.6 g proteinuria, serologies ordered and in process he will likely require a renal biopsy, we discussed risks/benefits and tentatively will plan for procedure to cover interstitial diseases we will continue Solumedrol IV x 2 more days at 500 mg, then convert to oral prednisone no IVF required daily renal panel and urine output measurement avoid nephrotoxins will have bejarano catheter removed phos is extremely high, will begin Renvela and monitor effect (2) Thrombocytopenia Plan: progressively dropping platelet levels no current bleeding may be related to cirrhosis finding on CT or HUS? (3) Cirrhosis Plan: per findings on Ct scan long hx of heavy drinking (Helen Gaspar) Plan patient was seen and examined. Seen during dialysis. All the data reviewed. Etiology of renal biopsy is unclear. He appears to have alcoholic cirrhosis. IgA nephropathy has been associated with cirrhosis. He does have thrombocytopenia, but could be due to cirrhosis and hypersplenism. LDH ordered. We will need to schedule him for renal biopsy. (Fredo Mayer MD) Helen Gaspar Nov 20, 2016 12:19 Fredo Mayer MD Nov 21, 2016 07:42
[2016-11-20] MEDS: HEPARIN SODIUM - IV 10,000 UNITS/10 ML VIAL PRN (12:38)
[2016-11-20] MEDS: GENTAMICIN SULFATE (DIALYSIS USE ONLY) 20 MG/2 ML VIAL IV PRN (12:38)
--- NOTE | 2016-11-20 14:08 | RADRPT ---
EXAM DATE/TIME: 11/19/2016 00:00 CORRECTION Corrected on: November 23, 2016; CORRECTION: Corrected examform information [place] COMPARISON: No previous studies available for comparison. INDICATIONS : Patient is in need of additional intervention with medication for continued post Vascath bleeding. MEDICAL HISTORY : 1. Cellulitis of left leg 2. Acute renal failure 3. Thrombocytopenia SURGICAL HISTORY : 1. Surgery to both lower extremities ENCOUNTER: Subsequent ACUITY: 1 week PAIN SCORE: 2/10 LOCATION: Left calf ACCESS SITE: Right Jugular vein MEDICATION(S): 1.) 2000 units Thrombin Topical 2.) 25 mg Protamine sulfate IV DEVICE(S): 1.) Right IJ vein 12-7mm Gelfoam PROCEDURE : 1. Ultrasound guided puncture of pseudoaneurysm. 2. Thrombin injection of pseudoaneurysm. The patient returned to the angiography suite secondary to continued bleeding from the Vas-Cath inser tion site. The area was prepped in the usual sterile fashion. Full sterile technique was used, includ ing cap, mask, sterile gloves and gown and a large sterile sheet. Hand hygiene and 2% chlorhexidine and/or betadine/alcohol prep was utilized per protocol for cutaneous antisepsis. The skin and subcut aneous tissues were infiltrated with local anesthetic solution. The area around the catheter insertion site was evaluated. A small area of bleeding at the skin surfa ce was cauterized. The area around the catheter was packed with a small amount of Gelfoam. A second p iece of Gelfoam which been soaked in thrombin was placed on the skin surface at the insertion site. T he patient was given 25 mg of protamine. CONCLUSION: Hemostasis around the catheter insertion site was achieved. The patient tolerated the procedure well. Horace Zapata MD on November 20, 2016 at 14:04 Board Certified Radiologist. This report was verified electronically. Electric Deicer Inspector on November 23, 2016 at 9:32 Board Certified Radiologist. This report was verified electronically.
[2016-11-20] MEDS: SEVELAMER CARBONATE 800 MG TAB PO SCH (16:49)
[2016-11-20 22:27] LABS: ALBUMIN SPE 2.51 GM/DL (3.50-5.00); ALPHA 1 GLOBULIN 0.51 GM/DL (0.11-0.29); ALPHA 2 GLOBULIN 0.77 GM/DL (0.22-1.00); BETA GLOBULINS (SPE) 1.27 GM/DL (0.53-1.03)
[2016-11-20] MEDS ORDERED: PROMETHAZINE INJ 25 MG/ML VIAL IM ONE (23:15)
[2016-11-21] VITALS (18 sets, daily range): BP systolic 113–139; BP diastolic 60–72; PULSE 20–90; RESP 18–20; TEMP 97.7–98.2; O2SAT 95–97
[2016-11-21] MEDS: CHLORHEXIDINE GLUCONATE 2 % 1 PACK (2 CLOTHS) TOP SCH (01:48)
[2016-11-21] MEDS: PIPERACIL-TAZO 2.25 GM PREMIX 50 ML IV SCH ×4 (05:52→23:45)
[2016-11-21 07:17] LABS: BICARBONATE 21.6 MEQ/L (21.0-32.0); POTASSIUM 4.9 MEQ/L (3.5-5.1)
[2016-11-21] MEDS: SEVELAMER CARBONATE 800 MG TAB PO SCH ×3 (08:00→17:41)
[2016-11-21] MEDS: SODIUM CHLORIDE 0.9% FLUSH 5 ML FLUSH FLUSH SCH (08:07)
--- NOTE | 2016-11-21 08:17 | HHI.NPPN ---
Subjective Complaints: Confused, Obesity General Problems: Edema Renal Failure: Acute Interval History patient was seen and examined. He was seen during dialysis. Complains of nausea , vomited yesterday. Feels slightly better today, but did not have dinner. No breakfast this morning. Review of Systems General Constitutional: Fatigue Respiratory Lungs: SOB Cardiovascular Cardiac: Edema Objective Data Data 11/20/16 11/21/16 19:00 07:00 Intake Total 880 ml 120 ml Output Total 3100 ml Balance -2220 ml 120 ml Intake Oral 680 ml 120 ml IV Total 200 ml Output Urine Total 100 ml Hemodialysis 3000 ml # Voids 1 Vital Signs Date Time Temp Pulse Resp B/P Pulse Ox O2 Delivery O2 Flow Rate FiO2 11/21/16 06:00 70 11/21/16 05:00 68 11/21/16 04:00 70 11/21/16 03:00 74 113/62 95 11/21/16 03:00 74 11/21/16 02:00 72 11/21/16 01:00 74 11/21/16 00:00 78 11/20/16 23:00 79 11/20/16 23:00 97.8 79 162/95 95 11/20/16 22:00 83 11/20/16 21:00 76 11/20/16 20:00 82 11/20/16 19:00 97.5 82 132/81 95 11/20/16 19:00 82 11/20/16 18:08 88 11/20/16 17:10 88 11/20/16 16:20 85 11/20/16 16:20 97.4 88 18 136/74 98 11/20/16 15:17 86 11/20/16 14:05 88 11/20/16 10:41 98 21 11/20/16 09:16 98.0 92 18 150/82 98 11/20/16 09:16 92 -: 11/20/16 0717 11/21/16 0630 Tubes & Lines: Vas-Cath Physical Exam General Appearance: Well Developed, Well Nourished, No Acute Distress Eyes Eye Exam: Pupils Equal Throat Throat Exam: Oral Mucosa [place] & Moist Pulmonary Resp Exam: Clear Bilaterally, Breath Sounds Equal Cardiology CV Exam: Regular, Normal Sinus Rhythm Gastrointestinal/Abdomen GI Exam: Soft, Non-Tender, Bowel Sounds Present Musculoskeletal MS Exam: Joints Intact, Normal Tone Extremeties Extremities Exam: Pedal Pulses Palpable, Moderate Edema, Dependent Edema Neurologic Neuro Exam: Alert, Awake, Oriented, Speech Clear, Moving All Extremities Psychiatric Psych Exam: Appropriate Responses Assessment/Plan Discussed Condition With: Patient Assessment Summary: SAL/Acute Renal Failure, Fluid/Volume Overload, Proteinuria Problem List: (1) Acute renal failure Plan: In a patient with normal renal function in May 2016 he has become anuric, HD initiated on 11/19. Dialysis is planned for today, 3K, UF goal is 2 liters. Etiology of SAL is unclear. He does appear to have alcoholic cirrhosis. 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 he has 4.6 g proteinuria, serologies ordered and in process he will likely require a renal biopsy, we discussed risks/benefits and tentatively will plan for procedure On Empiric steroid. Start Prednisone 60 mg from 11/22. Continue Renvela 1600 mg PO TID with meals. (2) Thrombocytopenia Plan: Could be due to cirrhosis. Ordered LDH and haptoglobin, but results not available. Repeat CBC. (3) Cirrhosis Plan: per findings on Ct scan long hx of heavy drinking Fredo Mayer MD Nov 21, 2016 08:17
[2016-11-21 08:54] LABS: AUTOMATED NEUTROPHIL # 9.1 TH/MM3 (1.8-7.7); BASOPHIL % 0.1 % (0.0-2.0); HEMATOCRIT 29.1 % (39.0-51.0); HEMO FLAGS DIFF FINAL; LYMPHOCYTE # 0.7 TH/MM3 (1.0-4.8); MEAN CELL VOLUME 91.8 FL (80.0-100.0); MEAN CORPUSCULAR HEMOGLOBIN 32.7 PG (27.0-34.0); MEAN CORPUSCULAR HGB CONC 35.6 % (32.0-36.0); MONO % 7.6 % (0.0-8.0); NEUT % 85.3 % (16.0-70.0); PLATELET COUNT 109 TH/MM3 (150-450); RED BLOOD COUNT 3.17 MIL/MM3 (4.50-5.90); RED CELL DISTRIBUTION WIDTH 14.3 % (11.6-17.2); WHITE BLOOD COUNT 10.7 TH/MM3 (4.0-11.0)
[2016-11-21] MEDS: SODIUM CHLOR 0.9% 1000 ML INJ 1,000 ML IV PRN (09:27)
[2016-11-21] MEDS: GENTAMICIN SULFATE (DIALYSIS USE ONLY) 20 MG/2 ML VIAL IV PRN (09:28)
[2016-11-21] MEDS: HEPARIN SODIUM - IV 10,000 UNITS/10 ML VIAL PRN (09:28)
[2016-11-21] MEDS: ONDANSETRON HCL 4 MG/2 ML VIAL IV PRN (11:19)
[2016-11-21] MEDS: methylPREDNISolone SO SUCC INJ 500 MG in DEXTROSE 5% IN WATER 100ML INJ 100 ML IV SCH ×2 (11:21)
[2016-11-21] MEDS: ACETAMINOPHEN/HYDROcodone 325 MG/5 MG TAB PO PRN ×2 (12:43→22:03)
[2016-11-21 14:01] LABS: ANA SCREEN NEG (NEG)
[2016-11-21] MEDS: ONDANSETRON HCL 4 MG/2 ML VIAL IVP PRN (22:02)
--- NOTE | 2016-11-21 23:16 | HHI.PR ---
Subjective Remarks deferred entry - patient seen earlier at 8: 40 pm patient states he feels better states he was feeling nauseous and tired after dialysis denies cp/sob denies fevers/chills denies cough denies abdominal pain Objective Vitals Vital Signs Date Time Temp Pulse Resp B/P Pulse Ox O2 Delivery O2 Flow Rate FiO2 11/21/16 20:00 81 11/21/16 20:00 98.2 81 18 133/72 96 11/21/16 18:03 78 11/21/16 17:01 81 11/21/16 16:02 90 11/21/16 15:22 85 11/21/16 15:22 98.2 85 18 139/71 96 11/21/16 14:06 84 11/21/16 13:41 84 11/21/16 13:40 18 11/21/16 12:06 76 11/21/16 11:35 97 21 11/21/16 11:34 75 11/21/16 11:34 98.0 75 18 116/60 96 11/21/16 08:00 97.7 83 20 135/69 95 11/21/16 08:00 83 11/21/16 06:00 70 11/21/16 05:00 68 11/21/16 04:00 70 11/21/16 03:00 74 113/62 95 11/21/16 03:00 74 11/21/16 02:00 72 11/21/16 01:00 74 11/21/16 00:00 78 I/O 11/20/16 11/20/16 11/20/16 11/21/16 11/21/16 11/21/16 07:00 15:00 23:00 07:00 15:00 23:00 Intake Total 1060 ml 0 ml 880 ml 120 ml 710 ml Output Total 50 ml 3000 ml 100 ml 3500 ml 3501 ml Balance 1010 ml -3000 ml 780 ml 120 ml -3500 ml -2791 ml Intake Oral 960 ml 680 ml 120 ml 480 ml IV Total 100 ml 0 ml 200 ml 230 ml Output Urine Total 50 ml 100 ml 1 ml Hemodialysis 3000 ml 3500 ml 3500 ml # Voids 1 # Bowel Movements 1 Result Diagram: 11/21/16 0830 11/21/16 0630 Imaging Last Impressions Catheter Placement X-Ray 11/19/16 1058 Signed Impressions: Service Date/Time: Saturday, November 19, 2016 13:38 - CONCLUSION: Uncomplicated line placement as above. Horace Zapata MD Renal Ultrasound 11/19/16 0000 Signed Impressions: Service Date/Time: Saturday, November 19, 2016 09:26 - CONCLUSION: Normal examination. Garrett Lopes MD Radiology Special Procedure 11/19/16 0000 Signed Impressions: Service Date/Time: Saturday, November 19, 2016 00:00 - CONCLUSION: Hemostasis around the catheter insertion site was achieved. The patient tolerated the procedure well. Horace Zapata MD Abdomen/Pelvis CT 11/19/16 0000 Signed Impressions: Service Date/Time: Saturday, November 19, 2016 13:56 - CONCLUSION: Stable findings of cirrhosis and splenomegaly with varices. Otherwise negative. Garrett Lopes MD Chest X-Ray 11/18/16 1628 Signed Impressions: Service Date/Time: Friday, November 18, 2016 16:49 - CONCLUSION: Cardiomegaly. Derek Rider MD Objective Remarks GENERAL: NAD SKIN: Warm and dry. Right lower extremity erythema much improved HEAD: Normocephalic. EYES: No scleral icterus. No injection or drainage. NECK: Supple, trachea midline. No JVD or lymphadenopathy. Vas-Cath in place right neck CARDIOVASCULAR: Regular rate and rhythm without murmurs, gallops, or rubs. RESPIRATORY: Breath sounds equal bilaterally. No accessory muscle use. GASTROINTESTINAL: Abdomen soft, non-tender, nondistended. MUSCULOSKELETAL: No cyanosis, or edema. BACK: Nontender without obvious deformity. No CVA tenderness. Medications and IVs Current Medications Medications (Trade) Dose Ordered Sig/Noni Route Start Time Stop Time Status Last Admin (Zosyn 2.25 Gm Premix) 50 ml @ 100 mls/hr Q6H IV 11/19/16 00:00 11/21/16 17:41 (NS Flush) 2 ml UNSCH PRN FLUSH 11/18/16 19:30 (NS Flush) 2 ml BID FLUSH 11/18/16 21:00 11/21/16 08:07 (Zofran Inj) 4 mg Q6H PRN IVP 11/18/16 19:30 11/21/16 22:02 (Dulcolax Supp) 10 mg DAILY PRN DC 11/18/16 19:30 (Tylenol) 650 mg Q6H PRN PO 11/18/16 19:30 ([place] 5-325 Mg) 1 tab Q4H PRN PO 11/18/16 19:30 11/21/16 22:03 (Morphine Inj) 2 mg Q3H PRN IV 11/18/16 19:30 11/20/16 17:05 Miscellaneous Information 1 Q361D XX 11/18/16 19:30 11/18/16 19:30 (Chlorhexidine 2% Cloth) 3 pack Taper DAILY@04 TOP 11/19/16 04:00 11/15/17 03:59 (Chlorhexidine 2% Cloth) 3 pack UNSCH PRN TOP 11/18/16 19:30 (Ativan Inj) 1 mg Q4H PRN IV PUSH 11/18/16 21:30 11/20/16 08:05 Diphenhydramine HCl 25 mg 25 mg Q4H PRN IV PUSH 11/19/16 00:00 11/18/16 23:59 Methylprednisolone Sodium Succinate 500 mg/Dextrose 100 ml @ 200 mls/hr DAILY IV 11/19/16 09:15 11/22/16 09:00 11/21/16 11:21 (NS 1000 ml Inj) 1,000 ml @ 0 mls/hr Q0M PRN IV 11/19/16 09:14 11/21/16 09:27 Heparin Sodium (Porcine) 8000 units 8,000 units UNSCH PRN IVF 11/19/16 09:15 Sodium Chloride 1,000 ml @ 200 mls/hr Q5H PRN IV 11/19/16 09:14 11/21/16 09:28 (NS 1000 ml Inj) 1,000 ml @ 0 mls/hr Q0M PRN IV 11/19/16 09:14 (Mannitol Inj) 12.5 gm UNSCH PRN IV 11/19/16 09:15 (Albumin 25% Inj) 25 gm UNSCH PRN IV 11/19/16 09:15 (NS Flush) 5 ml UNSCH PRN IVF 11/19/16 09:15 11/21/16 09:29 (Heparin Inj) UNSCH PRN .XX 11/19/16 09:15 11/21/16 09:28 (Gentamicin (Dialysis) Inj) 20 mg UNSCH PRN IV 11/19/16 09:15 11/21/16 09:28 (Zofran Inj) 4 mg UNSCH PRN IV 11/19/16 09:15 11/21/16 11:19 (Tylenol) 650 mg UNSCH PRN PO 11/19/16 09:15 (Benadryl) 25 mg UNSCH PRN PO 11/19/16 09:15 (Nitrostat Sl) 0.4 mg UNSCH PRN SL 11/19/16 09:15 (Catapres) 0.1 mg UNSCH PRN PO 11/19/16 09:15 (Gelfoam 12 Mm/7 Mm Top) 1 foam UNSCH PRN TOP 11/19/16 09:15 11/19/16 17:18 (NS Flush) UNSCH PRN IVF 11/19/16 14:15 (Heparin Inj) UNSCH PRN IVF 11/19/16 14:15 (Renvela) 1,600 mg TIDAC PO 11/20/16 17:00 11/21/16 17:41 Urinary Catheter: No Vascular Central Line Catheter: No A/P Problem List: (1) Cellulitis of left leg ICD Code: L03.116 Status: Acute Plan: Improving. Continue IV Zosyn. Blood cultures negative x3. DVT ruled out with doppler (2) Acute renal failure ICD Code: N17.9 Status: Acute Plan: Unclear etiology. Patient is anuric. Nephrology consulted and following. appreciate recommendations. on HD as per nephrology. For renal biopsy on 11/22 (3) Thrombocytopenia ICD Code: D69.6 Status: Acute Plan: likely due to liver disease and hypersplenism. plt improving. continue to monitor platelets (4) Hyperkalemia ICD Code: E87.5 Status: Resolved Plan: Resolved after HD. Continue to monitor BMP (5) Cirrhosis ICD Code: K74.60 Status: Acute Plan: Hep profile negative. Likely alcoholic since there is h/o etoh abuse. Consult GI Problem Qualifiers (1) Cirrhosis: Tariq Chand MD Nov 21, 2016 23:16
[2016-11-21] MEDS: LORazepam 2 MG/ML VIAL IV PUSH PRN (23:53)
[2016-11-22] VITALS (27 sets, daily range): BP systolic 120–148; BP diastolic 69–88; PULSE 66–85; RESP 16–18; TEMP 98–98.6; O2SAT 94–98
[2016-11-22] MEDS: CHLORHEXIDINE GLUCONATE 2 % 1 PACK (2 CLOTHS) TOP SCH (04:00)
[2016-11-22] MEDS: PIPERACIL-TAZO 2.25 GM PREMIX 50 ML IV SCH ×3 (05:09→17:13)
[2016-11-22] MEDS: methylPREDNISolone SO SUCC INJ 500 MG in DEXTROSE 5% IN WATER 100ML INJ 100 ML IV SCH ×2 (08:54)
[2016-11-22] MEDS: SEVELAMER CARBONATE 800 MG TAB PO SCH ×3 (08:54→17:13)
[2016-11-22] MEDS: SODIUM CHLORIDE 0.9% FLUSH 5 ML FLUSH FLUSH SCH ×2 (08:54→22:08)
[2016-11-22] MEDS: ONDANSETRON HCL 4 MG/2 ML VIAL IVP PRN (09:04)
--- NOTE | 2016-11-22 09:56 | HHI.NPPN ---
Subjective Complaints: Confused, Obesity General Problems: Edema, Hypertension Renal Failure: Acute Interval History Sitting up in bed. Scheduled for renal biopsy today. Had third dialysis session yesterday. Having some fatigue. (Helen Gaspar) Review of Systems General Constitutional: Fatigue (Helen Gaspar) Respiratory Lungs: SOB (Helen Gaspar) Cardiovascular Cardiac: Edema (Helen Gaspar) Gastrointestinal Gastrointestinal: Nausea & Vomiting (Helen Gaspar) Objective Data Data 11/21/16 11/22/16 19:00 07:00 Intake Total 710 ml 340 ml Output Total 7001 ml 2 ml Balance -6291 ml 338 ml Intake Oral 480 ml 240 ml IV Total 230 ml 100 ml Output Urine Total 1 ml 2 ml Hemodialysis 7000 ml # Bowel Movements 1 0 Vital Signs Date Time Temp Pulse Resp B/P Pulse Ox O2 Delivery O2 Flow Rate FiO2 11/22/16 07:00 68 11/22/16 07:00 98.4 76 18 128/75 94 11/22/16 06:00 66 11/22/16 05:00 66 11/22/16 04:00 70 11/22/16 04:00 98.0 74 18 124/69 95 11/22/16 02:00 71 11/22/16 00:00 98.0 75 18 137/78 95 11/22/16 00:00 75 11/21/16 20:00 81 11/21/16 20:00 98.2 81 18 133/72 96 11/21/16 18:03 78 11/21/16 17:01 81 11/21/16 16:02 90 11/21/16 15:22 85 11/21/16 15:22 98.2 85 18 139/71 96 11/21/16 14:06 84 11/21/16 13:41 84 11/21/16 13:40 18 11/21/16 12:06 76 11/21/16 11:35 97 21 11/21/16 11:34 75 11/21/16 11:34 98.0 75 18 116/60 96 (Helen Gaspar) -: 11/21/16 0830 11/21/16 0630 Imaging Last 72 hours Impressions Catheter Placement X-Ray 11/19/16 1058 Signed Impressions: Service Date/Time: Saturday, November 19, 2016 13:38 - CONCLUSION: Uncomplicated line placement as above. Horace Zapata MD Tubes & Lines: Vas-Cath (Helen Gaspar B. [employer]) Physical Exam General Appearance: Well Developed, Well Nourished, No Acute Distress, Comfortable ( ChasityHelen B. [employer]) Eyes Eye Exam: Pupils Equal (Chasity,Helen B. [employer]) Throat Throat Exam: Oral Mucosa [place] & Moist (Chasity,Helen B. [employer]) Pulmonary Resp Exam: Clear Bilaterally, Breath Sounds Equal, No Distress (Chasity Helen B. [employer]) Cardiology CV Exam: Regular, Normal Sinus Rhythm, Good Perfusion (Chasity,Helen B. [employer]) Gastrointestinal/Abdomen GI Exam: Soft, Non-Tender, Bowel Sounds Present, Positive Bowel Movement GI Remarks BM 11/22 (Chasity,Helen B. [employer]) Genitourinary Remarks anuric (ChasityHelen B. [employer]) Musculoskeletal MS Exam: Joints Intact, Normal Gait, Normal Tone (ChasityHelen B. [employer]) Integumentary Skin Exam: Clear, Warm, Dry, Intact (Ricardo Gasparon B. [employer]) Extremeties Extremities Exam: Pedal Pulses Palpable, Moderate Edema, Dependent Edema ( ChasityHelen B. [employer]) Neurologic Neuro Exam: Alert, Awake, Oriented, Speech Clear, Moving All Extremities ( ChasityHelen B. [employer]) Psychiatric Psych Exam: Appropriate Responses (ChasityHelen B. [employer]) Assessment/Plan Discussed Condition With: Patient Assessment Summary: SAL/Acute Renal Failure, Fluid/Volume Overload, Proteinuria Problem List: (1) Acute renal failure Plan: In a patient with normal renal function in May 2016 he is anuric, HD initiated on 11/19, repeat 11/20 and 11/21 he is scheduled for renal biopsy today, reviewed risks/benefits of procedure this morning Etiology of SAL is unclear. He does appear to have alcoholic cirrhosis. 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 he has 4.6 g proteinuria, serologies ordered and in process On Empiric steroid therapy. continue Prednisone 60 mg daily beginning today, which may raise BUN Continue Renvela 1600 mg PO TID with meals, monitor phosphorus periodically low protein diet, encouraged oral hydration, however he is currently NPO for procedure daily renal panel (2) Thrombocytopenia Plan: Could be due to cirrhosis. LDH normal, haptoglobin pending monitor CBC, platelet level has improved as of recent monitor for bleeding post biopsy (3) Cirrhosis Plan: per findings on Ct scan long hx of heavy drinking (Helen Gaspar) Problem List: (1) Acute renal failure Plan: In a patient with normal renal function in May 2016 he is anuric, HD initiated on 11/19, repeat 11/20 and 11/21 he is scheduled for renal biopsy today, reviewed risks/benefits of procedure this morning Etiology of SAL is unclear. He does appear to have alcoholic cirrhosis. 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 he has 4.6 g proteinuria, serologies ordered and in process On Empiric steroid therapy. continue Prednisone 60 mg daily beginning today, which may raise BUN Continue Renvela 1600 mg PO TID with meals, monitor phosphorus periodically low protein diet, encouraged oral hydration, however he is currently NPO for procedure daily renal panel (2) Thrombocytopenia Plan: Could be due to cirrhosis. LDH normal, haptoglobin pending monitor CBC, platelet level has improved as of recent monitor for bleeding post biopsy (3) Cirrhosis Plan: per findings on Ct scan long hx of heavy drinking Plan patient was seen and examined. Renal biopsy today. Serologies: Hepatitis profile negative. JUNG negative. Complement levels normal. (Fredo Mayer MD) Problem Qualifiers (1) Cirrhosis: Helen Gaspar Nov 22, 2016 09:56 Fredo Mayer MD Nov 22, 2016 14:31
[2016-11-22] MEDS ORDERED: LIDOCAINE 1%/EPINEPHrine 1:100,000 SOLN 20 ML VIAL ONE (10:48)
--- NOTE | 2016-11-22 10:54 | HHI.PR ---
Subjective Remarks No major overnight events. Feels fatigued Denies chest pain or shortness of breath Denies fevers or chills Denies nausea vomiting Stable vital signs Objective Vitals Vital Signs Date Time Temp Pulse Resp B/P Pulse Ox O2 Delivery O2 Flow Rate FiO2 11/22/16 07:00 68 11/22/16 07:00 98.4 76 18 128/75 94 11/22/16 06:00 66 11/22/16 05:00 66 11/22/16 04:00 70 11/22/16 04:00 98.0 74 18 124/69 95 11/22/16 02:00 71 11/22/16 00:00 98.0 75 18 137/78 95 11/22/16 00:00 75 11/21/16 20:00 81 11/21/16 20:00 98.2 81 18 133/72 96 11/21/16 18:03 78 11/21/16 17:01 81 11/21/16 16:02 90 11/21/16 15:22 85 11/21/16 15:22 98.2 85 18 139/71 96 11/21/16 14:06 84 11/21/16 13:41 84 11/21/16 13:40 18 11/21/16 12:06 76 11/21/16 11:35 97 21 11/21/16 11:34 75 11/21/16 11:34 98.0 75 18 116/60 96 I/O 11/21/16 11/21/16 11/21/16 11/22/16 11/22/16 11/22/16 07:00 15:00 23:00 07:00 15:00 23:00 Intake Total 120 ml 710 ml 340 ml Output Total 3500 ml 3501 ml 2 ml Balance 120 ml -3500 ml -2791 ml 338 ml Intake Oral 120 ml 480 ml 240 ml IV Total 230 ml 100 ml Output Urine Total 1 ml 2 ml Hemodialysis 3500 ml 3500 ml # Voids 1 # Bowel Movements 1 0 Result Diagram: 11/21/16 0830 11/21/16 0630 Imaging Last Impressions Catheter Placement X-Ray 11/19/16 1058 Signed Impressions: Service Date/Time: Saturday, November 19, 2016 13:38 - CONCLUSION: Uncomplicated line placement as above. Horace Zapata MD Renal Ultrasound 11/19/16 0000 Signed Impressions: Service Date/Time: Saturday, November 19, 2016 09:26 - CONCLUSION: Normal examination. Garrett Lopes MD Radiology Special Procedure 11/19/16 0000 Signed Impressions: Service Date/Time: Saturday, November 19, 2016 00:00 - CONCLUSION: Hemostasis around the catheter insertion site was achieved. The patient tolerated the procedure well. Horace Zapata MD Abdomen/Pelvis CT 11/19/16 0000 Signed Impressions: Service Date/Time: Saturday, November 19, 2016 13:56 - CONCLUSION: Stable findings of cirrhosis and splenomegaly with varices. Otherwise negative. Garrett Lopes MD Chest X-Ray 11/18/16 1628 Signed Impressions: Service Date/Time: Friday, November 18, 2016 16:49 - CONCLUSION: Cardiomegaly. Derek Rider MD Objective Remarks GENERAL: NAD SKIN: Warm and dry. Right lower extremity erythema much improved HEAD: Normocephalic. EYES: No scleral icterus. No injection or drainage. NECK: Supple, trachea midline. No JVD or lymphadenopathy. Vas-Cath in place right neck CARDIOVASCULAR: Regular rate and rhythm without murmurs, gallops, or rubs. RESPIRATORY: Breath sounds equal bilaterally. No accessory muscle use. GASTROINTESTINAL: Abdomen soft, non-tender, nondistended. MUSCULOSKELETAL: No cyanosis, or edema. BACK: Nontender without obvious deformity. No CVA tenderness. Medications and IVs Current Medications Medications (Trade) Dose Ordered Sig/Noni Route Start Time Stop Time Status Last Admin (Zosyn 2.25 Gm Premix) 50 ml @ 100 mls/hr Q6H IV 11/19/16 00:00 11/22/16 05:09 (NS Flush) 2 ml UNSCH PRN FLUSH 11/18/16 19:30 (NS Flush) 2 ml BID FLUSH 11/18/16 21:00 11/22/16 08:54 (Zofran Inj) 4 mg Q6H PRN IVP 11/18/16 19:30 11/22/16 09:04 (Dulcolax Supp) 10 mg DAILY PRN CO 11/18/16 19:30 (Tylenol) 650 mg Q6H PRN PO 11/18/16 19:30 (Gordon 5-325 Mg) 1 tab Q4H PRN PO 11/18/16 19:30 11/21/16 22:03 (Morphine Inj) 2 mg Q3H PRN IV 11/18/16 19:30 11/20/16 17:05 Miscellaneous Information 1 Q361D XX 11/18/16 19:30 11/18/16 19:30 (Chlorhexidine 2% Cloth) 3 pack Taper DAILY@04 TOP 11/19/16 04:00 11/15/17 03:59 11/22/16 04:00 (Chlorhexidine 2% Cloth) 3 pack UNSCH PRN TOP 11/18/16 19:30 (Ativan Inj) 1 mg Q4H PRN IV PUSH 11/18/16 21:30 11/21/16 23:53 Diphenhydramine HCl 25 mg 25 mg Q4H PRN IV PUSH 11/19/16 00:00 11/18/16 23:59 (NS 1000 ml Inj) 1,000 ml @ 0 mls/hr Q0M PRN IV 11/19/16 09:14 11/21/16 09:27 Heparin Sodium (Porcine) 8000 units 8,000 units UNSCH PRN IVF 11/19/16 09:15 Sodium Chloride 1,000 ml @ 200 mls/hr Q5H PRN IV 11/19/16 09:14 11/21/16 09:28 (NS 1000 ml Inj) 1,000 ml @ 0 mls/hr Q0M PRN IV 11/19/16 09:14 (Mannitol Inj) 12.5 gm UNSCH PRN IV 11/19/16 09:15 (Albumin 25% Inj) 25 gm UNSCH PRN IV 11/19/16 09:15 (NS Flush) 5 ml UNSCH PRN IVF 11/19/16 09:15 11/21/16 09:29 (Heparin Inj) UNSCH PRN .XX 11/19/16 09:15 11/21/16 09:28 (Gentamicin (Dialysis) Inj) 20 mg UNSCH PRN IV 11/19/16 09:15 11/21/16 09:28 (Zofran Inj) 4 mg UNSCH PRN IV 11/19/16 09:15 11/21/16 11:19 (Tylenol) 650 mg UNSCH PRN PO 11/19/16 09:15 (Benadryl) 25 mg UNSCH PRN PO 11/19/16 09:15 (Nitrostat Sl) 0.4 mg UNSCH PRN SL 11/19/16 09:15 (Catapres) 0.1 mg UNSCH PRN PO 11/19/16 09:15 (Gelfoam 12 Mm/7 Mm Top) 1 foam UNSCH PRN TOP 11/19/16 09:15 11/19/16 17:18 (NS Flush) UNSCH PRN IVF 11/19/16 14:15 (Heparin Inj) UNSCH PRN IVF 11/19/16 14:15 (Renvela) 1,600 mg TIDAC PO 11/20/16 17:00 11/22/16 08:54 (Deltasone) 60 mg DAILY PO 11/22/16 10:00 Urinary Catheter: No Vascular Central Line Catheter: No A/P Problem List: (1) Cellulitis of left leg ICD Code: L03.116 Status: Acute Plan: Improving. Continue IV Zosyn. Blood cultures negative x3. DVT ruled out with doppler (2) Acute renal failure ICD Code: N17.9 Status: Acute Plan: Unclear etiology. Patient is anuric. Nephrology consulted and following. appreciate recommendations. on HD as per nephrology. For renal biopsy today Patient starting oral prednisone as per nephrology recommendations. (3) Thrombocytopenia ICD Code: D69.6 Status: Acute Plan: likely due to liver disease and hypersplenism. plt improving. continue to monitor platelets (4) Hyperkalemia ICD Code: E87.5 Status: Resolved Plan: Resolved after HD. Continue to monitor BMP (5) Cirrhosis ICD Code: K74.60 Status: Acute Plan: Hep profile negative. Likely alcoholic since there is h/o etoh abuse. GI consult pending. Assessment and Plan DVT prophylaxis: SCDs, no chemotherapy prophylaxis given thrombocytopenia Discharge Planning Continue to monitor in the medical floor. Problem Qualifiers (1) Acute renal failure: Qualified Code: N17.0 - Acute renal failure with tubular necrosis (2) Cirrhosis: Tariq Chand MD Nov 22, 2016 10:54
[2016-11-22] MEDS ORDERED: MIDAZOLAM HCL 5 MG/5 ML VIAL ONE (11:41)
[2016-11-22] MEDS ORDERED: fentaNYL CITRATE 250 MCG/5 ML AMP ONE (11:41)
--- NOTE | 2016-11-22 13:28 | RADRPT ---
EXAM DATE/TIME: 11/22/2016 11:57 [facility] COMPARISON: CT ABDOMEN & PELVIS W/O CONTRAST, November 19, 2016, 13:56. INDICATIONS : Acute renal failure. SEDATION TIME: 30 minutes BIOPSY SITE: Right kidney MEDICATION(S): 1.) 1 mg midazolam (Versed) IV 2.) 100 mcg fentanyl (Sublimaze) IV DEVICE(S): 1.) 22 gauge Spinal needle 2.) 15 gauge Temno core biopsy needle 3.) 18 gauge BioPince MEDICAL HISTORY : Renal failure. Dialysis. SURGICAL HISTORY : None. ENCOUNTER: Initial ACUITY: 1 day PAIN SCORE: 0/10 LOCATION: Right renal A total of three core specimen(s) were obtained and sent to the laboratory for pathologic evaluation. PROCEDURE: 1. CT guided renal biopsy. 2. Conscious sedation with continuous EKG and oximetry monitoring. 3. EKG and oximetry remained stable throughout the procedure. Prior to the procedure informed consent was obtained. Any appropriate prior imaging studies were rev iewed. The site was prepped in a sterile fashion. Full sterile technique was used, including cap, mask, chip rile gloves and gown and a large sterile sheet. Hand hygiene and 2% chlorhexidine and/or betadine/al cohol prep was utilized per protocol for cutaneous antisepsis. The skin and subcutaneous tissues wer e infiltrated with local anesthetic solution. With CT guidance the previously identified target was localized. Biopsy was performed using the presc ribed needle as above. Adequate hemostasis was obtained with compression at the puncture site. Follow-up CT scan reveals no significant hemorrhage or acute abnormality. The patient tolerated the procedure well and there were no complications. The patient was returned to the Radiology Outpatient Unit in stable condition. CONCLUSION: Uncomplicated CT guided biopsy of the right lower pole kidney. Derek Monet MD on November 22, 2016 at 13:18 Board Certified Radiologist. This report was verified electronically.
[2016-11-22] MEDS: predniSONE 20 MG TAB PO SCH (14:19)
[2016-11-22 16:46] LABS: AUTOMATED NEUTROPHIL # 8.9 TH/MM3 (1.8-7.7); BASOPHIL % 0.1 % (0.0-2.0); HEMATOCRIT 27.8 % (39.0-51.0); LYMPH % 6.8 % (9.0-44.0); LYMPHOCYTE # 0.7 TH/MM3 (1.0-4.8); MEAN CORPUSCULAR HEMOGLOBIN 33.1 PG (27.0-34.0); MEAN CORPUSCULAR HGB CONC 35.6 % (32.0-36.0); MONO % 5.7 % (0.0-8.0); NEUT % 87.4 % (16.0-70.0); PLATELET COUNT 92 TH/MM3 (150-450); RED BLOOD COUNT 2.98 MIL/MM3 (4.50-5.90); RED CELL DISTRIBUTION WIDTH 14.3 % (11.6-17.2); WHITE BLOOD COUNT 10.2 TH/MM3 (4.0-11.0)
[2016-11-22 16:48] LABS: HEMO FLAGS DIFF FINAL
[2016-11-22 17:32] LABS: ALKALINE PHOSPHATASE 53 U/L (45-117); ALT (GPT) 14 U/L (12-78); ANION GAP 15 MEQ/L (5-15); AST (GOT) 18 U/L (15-37); BICARBONATE 24.7 MEQ/L (21.0-32.0); BLOOD UREA NITROGEN 135 MG/DL (7-18); CHLORIDE 95 MEQ/L (98-107); GLOMERULAR FILTRATION RATE 4 ML/MIN (>89); MAGNESIUM 2.1 MG/DL (1.5-2.5); POTASSIUM 4.9 MEQ/L (3.5-5.1); SODIUM (NA) 135 MEQ/L (136-145); TOTAL BILIRUBIN ADULT 0.5 MG/DL (0.2-1.0)
[2016-11-22] MEDS: ONDANSETRON HCL 4 MG/2 ML VIAL IV PRN (22:04)
[2016-11-22] MEDS: LORazepam 2 MG/ML VIAL IV PUSH PRN (22:05)
[2016-11-22] MEDS: ACETAMINOPHEN/HYDROcodone 325 MG/5 MG TAB PO PRN (22:06)
[2016-11-23] VITALS (21 sets, daily range): BP systolic 124–135; BP diastolic 75–78; PULSE 70–88; RESP 16–18; TEMP 98.2–98.7; O2SAT 94–97
[2016-11-23] MEDS: PIPERACIL-TAZO 2.25 GM PREMIX 50 ML IV SCH ×4 (00:45→16:15)
[2016-11-23 03:54] LABS: MYELOPEROXIDASE LESS THAN 1.0 AI (<1.0); PROTEINASE-3 LESS THAN 1.0 AI (<1.0)
[2016-11-23] MEDS: CHLORHEXIDINE GLUCONATE 2 % 1 PACK (2 CLOTHS) TOP SCH (04:00)
[2016-11-23] MEDS: ONDANSETRON HCL 4 MG/2 ML VIAL IVP PRN ×2 (05:30→16:13)
[2016-11-23] MEDS: SEVELAMER CARBONATE 800 MG TAB PO SCH ×3 (05:31→17:27)
[2016-11-23 06:57] LABS: AUTOMATED NEUTROPHIL # 8.4 TH/MM3 (1.8-7.7); BASOPHIL % 0.1 % (0.0-2.0); EOSINOPHIL % 0.1 % (0.0-4.0); HEMATOCRIT 24.9 % (39.0-51.0); LYMPH % 7.5 % (9.0-44.0); LYMPHOCYTE # 0.8 TH/MM3 (1.0-4.8); MEAN CELL VOLUME 93.1 FL (80.0-100.0); MEAN CORPUSCULAR HEMOGLOBIN 33.4 PG (27.0-34.0); MEAN CORPUSCULAR HGB CONC 35.9 % (32.0-36.0); MONO % 8.8 % (0.0-8.0); NEUT % 83.5 % (16.0-70.0); PLATELET COUNT 80 TH/MM3 (150-450); RED BLOOD COUNT 2.68 MIL/MM3 (4.50-5.90); RED CELL DISTRIBUTION WIDTH 14.2 % (11.6-17.2); WHITE BLOOD COUNT 10.1 TH/MM3 (4.0-11.0)
[2016-11-23 07:00] LABS: HEMO FLAGS AUTO DIFF
[2016-11-23 08:06] LABS: BICARBONATE 25.5 MEQ/L (21.0-32.0); MAGNESIUM 2.2 MG/DL (1.5-2.5); POTASSIUM 5.3 MEQ/L (3.5-5.1)
[2016-11-23 08:21] LABS: PLATELET ESTIMATE SMEAR LOW (NORMAL); PLATELET MORPHOLOGY NORMAL (NORMAL); SCAN/DIFF AUTO DIFF CONFIRMED
--- NOTE | 2016-11-23 09:28 | HHI.NPPN ---
Subjective Complaints: Confused, Obesity General Problems: Edema, Hypertension Renal Failure: Acute Interval History Seen during dialysis. Renal biopsy taken without major discomfort of issues. Results pending. (Helen Gaspar) Review of Systems General Constitutional: Fatigue (Helen Gaspar) Respiratory Lungs: SOB (Helen Gaspar) Cardiovascular Cardiac: Edema (Helen Gaspar) Gastrointestinal Gastrointestinal: Nausea & Vomiting (Helen Gaspar) Objective Data Data 11/22/16 11/23/16 19:00 07:00 Intake Total 820 ml 1400 ml Balance 820 ml 1400 ml Intake Oral 720 ml 1200 ml IV Total 100 ml 200 ml # Voids 2 4 # Bowel Movements 2 3 Vital Signs Date Time Temp Pulse Resp B/P Pulse Ox O2 Delivery O2 Flow Rate FiO2 11/23/16 08:00 80 11/23/16 07:00 98.2 73 18 124/75 96 11/23/16 07:00 74 11/23/16 04:21 98.3 71 16 131/77 97 11/23/16 02:00 83 11/23/16 01:00 78 11/23/16 00:00 78 11/22/16 23:12 98.2 84 16 141/84 97 11/22/16 23:00 77 11/22/16 22:00 82 11/22/16 21:00 82 11/22/16 20:00 78 11/22/16 19:30 98.2 79 16 148/88 98 11/22/16 19:00 80 11/22/16 18:00 84 11/22/16 17:36 95 21 11/22/16 17:00 85 11/22/16 16:00 78 11/22/16 15:00 98.1 78 18 120/76 95 11/22/16 15:00 77 11/22/16 14:44 120/76 11/22/16 14:14 145/87 11/22/16 14:00 72 11/22/16 13:44 131/77 11/22/16 13:29 130/81 11/22/16 13:00 98.6 73 18 130/81 96 11/22/16 13:00 72 11/22/16 10:00 76 (Helen Gaspar) -: 11/23/16 0505 11/23/16 0505 Imaging Last 72 hours Impressions Renal Biopsy CT 11/22/16 0000 Signed Impressions: Service Date/Time: October 11:57 - CONCLUSION: Uncomplicated CT guided biopsy of the right lower pole kidney. Derek Monet MD Tubes & Lines: Vas-Cath (Helen Gaspar) Physical Exam General Appearance: Well Developed, Well Nourished, No Acute Distress, Comfortable ( Helen Gaspar) Eyes Eye Exam: Pupils Equal (Helen Gaspar) Throat Throat Exam: Oral Mucosa [place] & Moist (Helen Gaspar) Pulmonary Resp Exam: Clear Bilaterally, Breath Sounds Equal, No Distress (Helen Gaspar) Cardiology CV Exam: Regular, Normal Sinus Rhythm, Good Perfusion (Helen Gaspar) Gastrointestinal/Abdomen GI Exam: Soft, Non-Tender, Bowel Sounds Present, Positive Bowel Movement GI Remarks BM 11/22; right flank s/p biopsy bandage in place, no excess bleeding (Helen Gaspar) Genitourinary Remarks anuric (Helen Gaspar) Musculoskeletal MS Exam: Joints Intact, Normal Gait, Normal Tone (Helen Gaspar) Integumentary Skin Exam: Clear, Warm, Dry, Intact (Helen Gaspar) Extremeties Extremities Exam: Pedal Pulses Palpable, Moderate Edema, Dependent Edema ( Helen Gaspar) Neurologic Neuro Exam: Alert, Awake, Oriented, Speech Clear, Moving All Extremities ( Helen Gaspar) Psychiatric Psych Exam: Appropriate Responses (Helen Gaspar) Assessment/Plan Discussed Condition With: Patient Assessment Summary: SAL/Acute Renal Failure, Fluid/Volume Overload, Proteinuria Problem List: (1) Acute renal failure Plan: In a patient with normal renal function in May 2016 he is anuric, HD initiated on 11/19, now on -- HD schedule seen during dialysis today on a 2K, 340 BFR, goal 4 liters s/p renal biopsy 11/22, no evidence of hemorrhage, awaiting pathology report Etiology of SAL is unclear. He does appear to have alcoholic cirrhosis. 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 no has progressed to ATN he has 4.6 g proteinuria, serologies negative to date including serum protein electrophoresis On Empiric steroid therapy, which may raise BUN Continue Renvela 1600 mg PO TID with meals, monitor phosphorus periodically low protein/low K diet, encouraged oral hydration daily renal panel await renal recovery monitor vascath function (2) Thrombocytopenia Plan: Due to cirrhosis? LDH normal, haptoglobin pending monitor CBC, platelet level is low but stable monitor for bleeding post biopsy (3) Cirrhosis Plan: per findings on Ct scan long hx of heavy drinking (Helen Gaspar) Plan patient was seen and examined. Agree with above assessment and plan. Awaiting results of renal biopsy. (Fredo Mayer MD) Problem Qualifiers (1) Acute renal failure: Qualified Code: N17.0 - Acute renal failure with tubular necrosis (2) Cirrhosis: Helen Gaspar Nov 23, 2016 09:28 Fredo Mayer MD Nov 23, 2016 13:41
[2016-11-23] MEDS: GENTAMICIN SULFATE (DIALYSIS USE ONLY) 20 MG/2 ML VIAL IV PRN (11:36)
[2016-11-23] MEDS: HEPARIN SODIUM - IV 10,000 UNITS/10 ML VIAL PRN (11:37)
[2016-11-23] MEDS: predniSONE 20 MG TAB PO SCH (12:27)
[2016-11-23] MEDS: SODIUM CHLORIDE 0.9% FLUSH 5 ML FLUSH FLUSH SCH ×2 (12:28→21:00)
[2016-11-23] MEDS: ACETAMINOPHEN/HYDROcodone 325 MG/5 MG TAB PO PRN (15:56)
--- NOTE | 2016-11-23 18:08 | HHI.PR ---
Subjective Remarks sp renal biosy today and HD denies cp/sob denies fevers/chills denies nausea or vomiting feels tired Objective Vitals Vital Signs Date Time Temp Pulse Resp B/P Pulse Ox O2 Delivery O2 Flow Rate FiO2 11/23/16 17:45 94 21 11/23/16 15:00 98.4 83 18 128/78 94 11/23/16 14:35 95 11/23/16 14:00 84 11/23/16 13:00 88 11/23/16 11:00 98.6 72 18 135/76 95 11/23/16 08:00 80 11/23/16 07:00 98.2 73 18 124/75 96 11/23/16 07:00 74 11/23/16 04:21 98.3 71 16 131/77 97 11/23/16 02:00 83 11/23/16 01:00 78 11/23/16 00:00 78 11/22/16 23:12 98.2 84 16 141/84 97 11/22/16 23:00 77 11/22/16 22:00 82 11/22/16 21:00 82 11/22/16 20:00 78 11/22/16 19:30 98.2 79 16 148/88 98 11/22/16 19:00 80 I/O 11/22/16 11/22/16 11/22/16 11/23/16 11/23/16 11/23/16 07:00 15:00 23:00 07:00 15:00 23:00 Intake Total 340 ml 820 ml 1400 ml 960 ml Output Total 2 ml 4000 ml 200 ml Balance 338 ml 820 ml 1400 ml -4000 ml 760 ml Intake Oral 240 ml 720 ml 1200 ml 840 ml IV Total 100 ml 100 ml 200 ml 120 ml Output Urine Total 2 ml 200 ml Hemodialysis 4000 ml # Voids 2 4 # Bowel Movements 0 2 3 2 Result Diagram: 11/23/16 0505 11/23/16 0505 Imaging Last Impressions Renal Biopsy CT 11/22/16 0000 Signed Impressions: Service Date/Time: October 11:57 - CONCLUSION: Uncomplicated CT guided biopsy of the right lower pole kidney. Derek Monet MD Catheter Placement X-Ray 11/19/16 1058 Signed Impressions: Service Date/Time: Saturday, November 19, 2016 13:38 - CONCLUSION: Uncomplicated line placement as above. Horace Zapata MD Renal Ultrasound 11/19/16 0000 Signed Impressions: Service Date/Time: Saturday, November 19, 2016 09:26 - CONCLUSION: Normal examination. Garrett Lopes MD Radiology Special Procedure 11/19/16 0000 Signed Impressions: Service Date/Time: Saturday, November 19, 2016 00:00 - CONCLUSION: Hemostasis around the catheter insertion site was achieved. The patient tolerated the procedure well. Horace Zapata MD Abdomen/Pelvis CT 11/19/16 0000 Signed Impressions: Service Date/Time: Saturday, November 19, 2016 13:56 - CONCLUSION: Stable findings of cirrhosis and splenomegaly with varices. Otherwise negative. Garrett Lopes MD Chest X-Ray 11/18/16 1628 Signed Impressions: Service Date/Time: Friday, November 18, 2016 16:49 - CONCLUSION: Cardiomegaly. Derek Rider MD Objective Remarks GENERAL: NAD SKIN: Warm and dry. Right lower extremity erythema much improved HEAD: Normocephalic. EYES: No scleral icterus. No injection or drainage. NECK: Supple, trachea midline. No JVD or lymphadenopathy. Vas-Cath in place right neck CARDIOVASCULAR: Regular rate and rhythm without murmurs, gallops, or rubs. RESPIRATORY: Breath sounds equal bilaterally. No accessory muscle use. GASTROINTESTINAL: Abdomen soft, non-tender, nondistended. MUSCULOSKELETAL: No cyanosis, or edema. BACK: Nontender without obvious deformity. No CVA tenderness. Medications and IVs Current Medications Medications (Trade) Dose Ordered Sig/Noni Route Start Time Stop Time Status Last Admin (Zosyn 2.25 Gm Premix) 50 ml @ 100 mls/hr Q6H IV 11/19/16 00:00 11/23/16 16:15 (NS Flush) 2 ml UNSCH PRN FLUSH 11/18/16 19:30 (NS Flush) 2 ml BID FLUSH 11/18/16 21:00 11/23/16 12:28 (Zofran Inj) 4 mg Q6H PRN IVP 11/18/16 19:30 11/23/16 16:13 (Dulcolax Supp) 10 mg DAILY PRN [place] 11/18/16 19:30 (Tylenol) 650 mg Q6H PRN PO 11/18/16 19:30 (Moroni 5-325 Mg) 1 tab Q4H PRN PO 11/18/16 19:30 11/23/16 15:56 (Morphine Inj) 2 mg Q3H PRN IV 11/18/16 19:30 11/20/16 17:05 Miscellaneous Information 1 Q361D XX 11/18/16 19:30 11/18/16 19:30 (Chlorhexidine 2% Cloth) 3 pack Taper DAILY@04 TOP 11/19/16 04:00 11/15/17 03:59 11/22/16 04:00 (Chlorhexidine 2% Cloth) 3 pack UNSCH PRN TOP 11/18/16 19:30 (Ativan Inj) 1 mg Q4H PRN IV PUSH 11/18/16 21:30 11/22/16 22:05 Diphenhydramine HCl 25 mg 25 mg Q4H PRN IV PUSH 11/19/16 00:00 11/18/16 23:59 (NS 1000 ml Inj) 1,000 ml @ 0 mls/hr Q0M PRN IV 11/19/16 09:14 11/21/16 09:27 Heparin Sodium (Porcine) 8000 units 8,000 units UNSCH PRN IVF 11/19/16 09:15 Sodium Chloride 1,000 ml @ 200 mls/hr Q5H PRN IV 11/19/16 09:14 11/21/16 09:28 (NS 1000 ml Inj) 1,000 ml @ 0 mls/hr Q0M PRN IV 11/19/16 09:14 (Mannitol Inj) 12.5 gm UNSCH PRN IV 11/19/16 09:15 (Albumin 25% Inj) 25 gm UNSCH PRN IV 11/19/16 09:15 (NS Flush) 5 ml UNSCH PRN IVF 11/19/16 09:15 11/21/16 09:29 (Heparin Inj) UNSCH PRN .XX 11/19/16 09:15 11/23/16 11:37 (Gentamicin (Dialysis) Inj) 20 mg UNSCH PRN IV 11/19/16 09:15 11/23/16 11:36 (Zofran Inj) 4 mg UNSCH PRN IV 11/19/16 09:15 11/22/16 22:04 (Tylenol) 650 mg UNSCH PRN PO 11/19/16 09:15 (Benadryl) 25 mg UNSCH PRN PO 11/19/16 09:15 (Nitrostat Sl) 0.4 mg UNSCH PRN SL 11/19/16 09:15 (Catapres) 0.1 mg UNSCH PRN PO 11/19/16 09:15 (Gelfoam 12 Mm/7 Mm Top) 1 foam UNSCH PRN TOP 11/19/16 09:15 11/19/16 17:18 (NS Flush) UNSCH PRN IVF 11/19/16 14:15 (Heparin Inj) UNSCH PRN IVF 11/19/16 14:15 (Renvela) 1,600 mg TIDAC PO 11/20/16 17:00 11/23/16 17:27 (Deltasone) 60 mg DAILY PO 11/22/16 10:00 11/23/16 12:27 A/P Problem List: (1) Cellulitis of left leg ICD Code: L03.116 Status: Acute Plan: Improving. Continue IV Zosyn. Blood cultures negative DVT ruled out with doppler (2) Acute renal failure ICD Code: N17.9 Status: Acute Plan: Unclear etiology. Patient is anuric. Nephrology consulted and following. appreciate recommendations. on HD as per nephrology. Continue prednisone as per nephrology sp renal biopsy (3) Thrombocytopenia ICD Code: D69.6 Status: Acute Plan: likely due to liver disease and hypersplenism. plt improving. continue to monitor platelets (4) Hyperkalemia ICD Code: E87.5 Status: Resolved Plan: K 6.0 on presentation, Resolved after HD. Continue to monitor BMP. K 5.3 today management as per nephrology. (5) Cirrhosis ICD Code: K74.60 Status: Acute Plan: Hep profile negative. Likely alcoholic since there is h/o etoh abuse. GI consult pending. Assessment and Plan DVT prophylaxis: SCDs, no chemotherapy prophylaxis given thrombocytopenia Discharge Planning Continue to monitor in the medical floor. Problem Qualifiers (1) Acute renal failure: Qualified Code: N17.0 - Acute renal failure with tubular necrosis (2) Cirrhosis: Tariq Chand MD Nov 23, 2016 18:08
[2016-11-23] MEDS ORDERED: SIMETHICONE 80 MG CHEWABLE TAB CHEW ONE (23:00)
[2016-11-24] VITALS (24 sets, daily range): BP systolic 125–147; BP diastolic 76–86; PULSE 67–79; RESP 16–18; TEMP 97.6–98.5; O2SAT 90–98
[2016-11-24] MEDS: ONDANSETRON HCL 4 MG/2 ML VIAL IVP PRN (00:48)
[2016-11-24] MEDS: LORazepam 2 MG/ML VIAL IV PUSH PRN (02:25)
[2016-11-24] MEDS: CHLORHEXIDINE GLUCONATE 2 % 1 PACK (2 CLOTHS) TOP SCH (04:00)
[2016-11-24] MEDS: PIPERACIL-TAZO 2.25 GM PREMIX 50 ML IV SCH ×3 (07:22→11:23)
[2016-11-24] MEDS: SODIUM CHLORIDE 0.9% FLUSH 5 ML FLUSH FLUSH SCH (08:38)
[2016-11-24] MEDS: SEVELAMER CARBONATE 800 MG TAB PO SCH ×3 (08:38→17:00)
[2016-11-24] MEDS: predniSONE 20 MG TAB PO SCH (08:38)
--- NOTE | 2016-11-24 09:10 | HHI.NPPN ---
Subjective Complaints: Confused, Obesity General Problems: Edema, Hypertension Renal Failure: Acute Interval History Underwent dialysis yesterday. Urine output may be slightly better. Review of Systems General Constitutional: Fatigue Respiratory Lungs: SOB Cardiovascular Cardiac: Edema Gastrointestinal Gastrointestinal: Nausea & Vomiting Objective Data Data 11/23/16 11/24/16 19:00 07:00 Intake Total 960 ml Output Total 4200 ml Balance -3240 ml Intake Oral 840 ml IV Total 120 ml Output Urine Total 200 ml Hemodialysis 4000 ml # Bowel Movements 2 Vital Signs Date Time Temp Pulse Resp B/P Pulse Ox O2 Delivery O2 Flow Rate FiO2 11/24/16 04:00 71 11/24/16 03:00 69 11/24/16 02:00 74 11/24/16 01:00 76 11/24/16 00:21 98.5 79 16 140/80 94 11/24/16 00:00 78 11/23/16 23:00 70 11/23/16 22:00 77 11/23/16 21:00 82 11/23/16 20:13 98.7 76 16 125/77 96 11/23/16 20:00 82 11/23/16 19:00 70 11/23/16 18:00 84 11/23/16 17:45 94 21 11/23/16 17:00 82 11/23/16 16:00 79 11/23/16 15:00 86 11/23/16 15:00 98.4 83 18 128/78 94 11/23/16 14:35 95 11/23/16 14:00 84 11/23/16 13:00 88 11/23/16 11:00 98.6 72 18 135/76 95 -: 11/23/16 0505 11/23/16 0505 Tubes & Lines: Vas-Cath Physical Exam General Appearance: Well Developed, Well Nourished, No Acute Distress, Comfortable Eyes Eye Exam: Pupils Equal Throat Throat Exam: Oral Mucosa [place] & Moist Pulmonary Resp Exam: Clear Bilaterally, Breath Sounds Equal, No Distress Cardiology CV Exam: Regular, Normal Sinus Rhythm, Good Perfusion Gastrointestinal/Abdomen GI Exam: Soft, Non-Tender, Bowel Sounds Present, Positive Bowel Movement Musculoskeletal MS Exam: Joints Intact, Normal Gait, Normal Tone Integumentary Skin Exam: Clear, Warm, Dry, Intact Extremeties Extremities Exam: Pedal Pulses Palpable, Dependent Edema Neurologic Neuro Exam: Alert, Awake, Oriented, Speech Clear, Moving All Extremities Psychiatric Psych Exam: Appropriate Responses Assessment/Plan Discussed Condition With: Patient Assessment Summary: SAL/Acute Renal Failure, Fluid/Volume Overload, Proteinuria Problem List: (1) Acute renal failure Plan: 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 The disease appears to be active. Not much interstitial fibrosis or tubular atrophy. Not much data is available for treatment of this condition. Consensus is to treat it just like RPGN from other causes: vasculitis, lupus or anti GBM disease. Some data to suggest benefit with CellCept. I will add CellCept. Continue Prednisone. Prognosis for renal recovery is poor. IgA nephropathy has been associated with Cirrhosis of the liver. Increase Renvela to 3 tabs with meals. 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 No evidence of thrombotic microangiopathy. (3) Cirrhosis Plan: per findings on Ct scan long hx of heavy drinking Problem Qualifiers (1) Acute renal failure: Qualified Code: N17.0 - Acute renal failure with tubular necrosis (2) Cirrhosis: Fredo Mayer MD Nov 24, 2016 09:10
--- NOTE | 2016-11-24 10:21 | PD.CONS ---
HPI History of Present Illness This is a 46 year old-old male with history of alcohol cirrhosis, hx of alcoholism, who is here for evaluation of worsening lower extremity cellulitis and was admitted to [facility] for evaluation of worsening renal function. Patient states the swelling on going for almost 6 months, he was treated by abx and got better but after flying back in town from [place], he noticed swelling of the left lower extremity with erythema for which he was seen in the ED and started on Bactrim DS. After 2 days of treatment, patient has complained of nausea and vomiting and was advised to 1/2 tab, however there was no improvement. Patient was switched to a different antibiotic without any improvement. He continued to complain of extreme left lower extremity pain. labs revealed ARF, electrolyte abnormalities along with thrombocytopenia and anemia. He denies hematemesis, abdominal pain, hematochezia, or melena. He states the stools have been mush like. He is recovering alcoholic, he has been clean for 13 months. LFTs and lipase normal. States he has been feeling ill with flu like symptoms. Ct showed Stable findings of cirrhosis and splenomegaly with varices. Otherwise negative. He hasn't been following with health provider for cirrhosis , he never had EGD/colonoscopy. Nephrology on the case (Theresa Franks) PFSH Past Medical History Recovery alcoholic, 13 months clean ARF Cirrhosis Past Surgical History Surgery to both lower extremities (Theresa Franks) Coded Allergies: Bactrim (Verified Allergy, Severe, 11/19/16) Medications Current Medications Medications (Trade) Dose Ordered Sig/Noni Route Start Time Stop Time Status Last Admin (Zosyn 2.25 Gm Premix) 50 ml @ 100 mls/hr Q6H IV 11/19/16 00:00 11/24/16 07:22 (NS Flush) 2 ml UNSCH PRN FLUSH 11/18/16 19:30 (NS Flush) 2 ml BID FLUSH 11/18/16 21:00 11/24/16 08:38 (Zofran Inj) 4 mg Q6H PRN IVP 11/18/16 19:30 11/24/16 00:48 (Dulcolax Supp) 10 mg DAILY PRN [place] 11/18/16 19:30 (Tylenol) 650 mg Q6H PRN PO 11/18/16 19:30 ([place] 5-325 Mg) 1 tab Q4H PRN PO 11/18/16 19:30 11/23/16 15:56 (Morphine Inj) 2 mg Q3H PRN IV 11/18/16 19:30 11/20/16 17:05 Miscellaneous Information 1 Q361D XX 11/18/16 19:30 11/18/16 19:30 (Chlorhexidine 2% Cloth) Taper DAILY@04 TOP 11/19/16 04:00 11/15/17 03:59 11/22/16 04:00 (Chlorhexidine 2% Cloth) 3 pack UNSCH PRN TOP 11/18/16 19:30 (Ativan Inj) 1 mg Q4H PRN IV PUSH 11/18/16 21:30 11/24/16 02:25 Diphenhydramine HCl 25 mg 25 mg Q4H PRN IV PUSH 11/19/16 00:00 11/18/16 23:59 (NS 1000 ml Inj) 1,000 ml @ 0 mls/hr Q0M PRN IV 11/19/16 09:14 11/21/16 09:27 Heparin Sodium (Porcine) 8000 units 8,000 units UNSCH PRN IVF 11/19/16 09:15 Sodium Chloride 1,000 ml @ 200 mls/hr Q5H PRN IV 11/19/16 09:14 11/21/16 09:28 (NS 1000 ml Inj) 1,000 ml @ 0 mls/hr Q0M PRN IV 11/19/16 09:14 (Mannitol Inj) 12.5 gm UNSCH PRN IV 11/19/16 09:15 (Albumin 25% Inj) 25 gm UNSCH PRN IV 11/19/16 09:15 (NS Flush) 5 ml UNSCH PRN IVF 11/19/16 09:15 11/21/16 09:29 (Heparin Inj) UNSCH PRN .XX 11/19/16 09:15 11/23/16 11:37 (Gentamicin (Dialysis) Inj) 20 mg UNSCH PRN IV 11/19/16 09:15 11/23/16 11:36 (Zofran Inj) 4 mg UNSCH PRN IV 11/19/16 09:15 11/22/16 22:04 (Tylenol) 650 mg UNSCH PRN PO 11/19/16 09:15 (Benadryl) 25 mg UNSCH PRN PO 11/19/16 09:15 (Nitrostat Sl) 0.4 mg UNSCH PRN SL 11/19/16 09:15 (Catapres) 0.1 mg UNSCH PRN PO 11/19/16 09:15 (Gelfoam 12 Mm/7 Mm Top) 1 foam UNSCH PRN TOP 11/19/16 09:15 11/19/16 17:18 (NS Flush) UNSCH PRN IVF 11/19/16 14:15 (Heparin Inj) UNSCH PRN IVF 11/19/16 14:15 (Deltasone) 60 mg DAILY PO 11/22/16 10:00 11/24/16 08:38 (Renvela) 2,400 mg TIDAC PO 11/24/16 12:00 (Cellcept) 500 mg BID@06,18 PO 11/24/16 18:00 Family History No family history of colon cancer or liver cancer Social History 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 for 13 months Tobacco Use: No Substance Use: No (HX COCAINE USE, CHRONIC ALCOHOL ABUSE) (Theresa Franks) Review of Systems Constitutional: COMPLAINS OF: Fatigue, DENIES: Chills Eyes: DENIES: Double Vision Ears, nose, mouth, throat: DENIES: Hoarseness Respiratory: DENIES: Shortness of breath Cardiovascular: COMPLAINS OF: Lower Extremity Edema Gastrointestinal: COMPLAINS OF: Diarrhea, Nausea, Vomiting, DENIES: Abdominal pain, Black stools, Bloody stools, Constipation, Difficulty Swallowing, Anorexia , Odynophagia, Swelling of Abdomen, Heartburn, Hematemesis Genitourinary: DENIES: Hematuria Musculoskeletal: DENIES: Neck pain Integumentary: DENIES: Jaundice Hematologic/lymphatic: DENIES: Bruising Immunologic/allergic: DENIES: Eczema Neurologic: DENIES: Abnormal gait Psychiatric: DENIES: Anxiety (Theresa Franks) GI Exam Vitals I&O Vital Signs Date Time Temp Pulse Resp B/P Pulse Ox O2 Delivery O2 Flow Rate FiO2 11/24/16 09:17 71 11/24/16 08:00 67 11/24/16 08:00 97.6 67 18 125/76 96 11/24/16 04:00 71 11/24/16 03:00 69 11/24/16 02:00 74 11/24/16 01:00 76 11/24/16 00:21 98.5 79 16 140/80 94 11/24/16 00:00 78 11/23/16 23:00 70 11/23/16 22:00 77 11/23/16 21:00 82 11/23/16 20:13 98.7 76 16 125/77 96 11/23/16 20:00 82 11/23/16 19:00 70 11/23/16 18:00 84 11/23/16 17:45 94 21 11/23/16 17:00 82 11/23/16 16:00 79 11/23/16 15:00 86 11/23/16 15:00 98.4 83 18 128/78 94 11/23/16 14:35 95 11/23/16 14:00 84 11/23/16 13:00 88 11/23/16 11:00 98.6 72 18 135/76 95 I/O 11/23/16 11/23/16 11/23/16 11/24/16 11/24/16 11/24/16 07:00 15:00 23:00 07:00 15:00 23:00 Intake Total 1400 ml 960 ml Output Total 4000 ml 200 ml Balance 1400 ml -4000 ml 760 ml Intake Oral 1200 ml 840 ml IV Total 200 ml 120 ml Output Urine Total 200 ml Hemodialysis 4000 ml # Voids 4 # Bowel Movements 3 2 Imaging Last Impressions Renal Biopsy CT 11/22/16 0000 Signed Impressions: Service Date/Time: October 11:57 - CONCLUSION: Uncomplicated CT guided biopsy of the right lower pole kidney. Derek Monet MD Catheter Placement X-Ray 11/19/16 1058 Signed Impressions: Service Date/Time: Saturday, November 19, 2016 13:38 - CONCLUSION: Uncomplicated line placement as above. Horace Zapata MD Renal Ultrasound 11/19/16 0000 Signed Impressions: Service Date/Time: Saturday, November 19, 2016 09:26 - CONCLUSION: Normal examination. Garrett Lopes MD Radiology Special Procedure 11/19/16 0000 Signed Impressions: Service Date/Time: Saturday, November 19, 2016 00:00 - CONCLUSION: Hemostasis around the catheter insertion site was achieved. The patient tolerated the procedure well. Horace Zapata MD Abdomen/Pelvis CT 11/19/16 0000 Signed Impressions: Service Date/Time: Saturday, November 19, 2016 13:56 - CONCLUSION: Stable findings of cirrhosis and splenomegaly with varices. Otherwise negative. Garrett Lopes MD Chest X-Ray 11/18/16 1628 Signed Impressions: Service Date/Time: Friday, November 18, 2016 16:49 - CONCLUSION: Cardiomegaly. Derek Rider MD Physical Examination HEENT: normocephalic; atraumatic; no jaundice. Throat is clear. NECK: Neck is supple, no JVD, no lymphadenopathy. CHEST: Chest is clear to auscultation and percussion. CARDIAC: Regular rate and rhythm with no murmur gallop or rubs. ABDOMEN: Soft, nondistended, nontender; bowel sounds are present in all four quadrants. EXTREMITIES: BLE edema/erythema. SKIN: no rash; no jaundice. [employer]: No focal deficits; alert and oriented times three. (Theresa Franks) Assessment and Plan Plan - Alcoholic Cirrhosis - Meld (30), previous work up in 2014 negative, hepatitis panel during this admission (-), hasn't been following up with health provider for this 13 month clean ( recovering alcoholic). Never had EGD/colonoscopy. LFTs and lipase normal. States he has been feeling ill with flu like symptoms. Ct showed Stable findings of cirrhosis and splenomegaly with varices. 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 The disease appears to be active. Not much interstitial fibrosis or tubular atrophy. IgA nephropathy has been associated with Cirrhosis of the liver. Prognosis for renal recovery is poor. Prednisone.CellCept started" - Cellulitis of legs- abx, blood cx negative per attending Plan: - FRANCISCO - AFP - EGD/colonoscopy sometimes next week - Monitor hh - CBC, CMP in am - Supportive care - Patient seen and examined by Dr. Marrufo and myself and this note is written on her behalf. (Theresa Franks) Physician Comments seen, examined agree with above we will send wes, asma ,ama, celiac panel , cryoglobulins will need vaccination hep a and b op if not done yet will need egd/colonoscopy at one point-can be done op (Mary Ann Marrufo MD) Theresa Franks Nov 24, 2016 10:21 Mary Ann Marrufo MD Nov 24, 2016 17:02
--- NOTE | 2016-11-24 11:09 | HHI.PR ---
Subjective Remarks c/o heartburn denies cp/sob still urinating a little feel better than yesterday denies diarrhea denies abdominal pain Objective Vitals Vital Signs Date Time Temp Pulse Resp B/P Pulse Ox O2 Delivery O2 Flow Rate FiO2 11/24/16 10:17 75 11/24/16 09:17 71 11/24/16 08:00 67 11/24/16 08:00 97.6 67 18 125/76 96 11/24/16 04:00 71 11/24/16 03:00 69 11/24/16 02:00 74 11/24/16 01:00 76 11/24/16 00:21 98.5 79 16 140/80 94 11/24/16 00:00 78 11/23/16 23:00 70 11/23/16 22:00 77 11/23/16 21:00 82 11/23/16 20:13 98.7 76 16 125/77 96 11/23/16 20:00 82 11/23/16 19:00 70 11/23/16 18:00 84 11/23/16 17:45 94 21 11/23/16 17:00 82 11/23/16 16:00 79 11/23/16 15:00 86 11/23/16 15:00 98.4 83 18 128/78 94 11/23/16 14:35 95 11/23/16 14:00 84 11/23/16 13:00 88 11/23/16 11:00 98.6 72 18 135/76 95 I/O 11/23/16 11/23/16 11/23/16 11/24/16 11/24/16 11/24/16 07:00 15:00 23:00 07:00 15:00 23:00 Intake Total 1400 ml 960 ml Output Total 4000 ml 200 ml Balance 1400 ml -4000 ml 760 ml Intake Oral 1200 ml 840 ml IV Total 200 ml 120 ml Output Urine Total 200 ml Hemodialysis 4000 ml # Voids 4 # Bowel Movements 3 2 Result Diagram: 11/23/16 0505 11/23/16 0505 Imaging Last Impressions Renal Biopsy CT 11/22/16 0000 Signed Impressions: Service Date/Time: October 11:57 - CONCLUSION: Uncomplicated CT guided biopsy of the right lower pole kidney. Derek Monet MD Catheter Placement X-Ray 11/19/16 1058 Signed Impressions: Service Date/Time: Saturday, November 19, 2016 13:38 - CONCLUSION: Uncomplicated line placement as above. Horace Zapata MD Renal Ultrasound 11/19/16 0000 Signed Impressions: Service Date/Time: Saturday, November 19, 2016 09:26 - CONCLUSION: Normal examination. Garrett Lopes MD Radiology Special Procedure 11/19/16 0000 Signed Impressions: Service Date/Time: Saturday, November 19, 2016 00:00 - CONCLUSION: Hemostasis around the catheter insertion site was achieved. The patient tolerated the procedure well. Horace Zapata MD Abdomen/Pelvis CT 11/19/16 0000 Signed Impressions: Service Date/Time: Saturday, November 19, 2016 13:56 - CONCLUSION: Stable findings of cirrhosis and splenomegaly with varices. Otherwise negative. Garrett Lopes MD Chest X-Ray 11/18/16 1628 Signed Impressions: Service Date/Time: Friday, November 18, 2016 16:49 - CONCLUSION: Cardiomegaly. Derek Rider MD Objective Remarks GENERAL: NAD SKIN: Warm and dry. Right lower extremity erythema much improved HEAD: Normocephalic. EYES: No scleral icterus. No injection or drainage. NECK: Supple, trachea midline. No JVD or lymphadenopathy. Vas-Cath in place right neck CARDIOVASCULAR: Regular rate and rhythm without murmurs, gallops, or rubs. RESPIRATORY: Breath sounds equal bilaterally. No accessory muscle use. GASTROINTESTINAL: Abdomen soft, non-tender, nondistended. obese. MUSCULOSKELETAL: No cyanosis, there is bilateral (+) 2 pitting edema in lower extremities BACK: Nontender without obvious deformity. No CVA tenderness. Medications and IVs Current Medications Medications (Trade) Dose Ordered Sig/Noni Route Start Time Stop Time Status Last Admin (Zosyn 2.25 Gm Premix) 50 ml @ 100 mls/hr Q6H IV 11/19/16 00:00 11/24/16 07:22 (NS Flush) 2 ml UNSCH PRN FLUSH 11/18/16 19:30 (NS Flush) 2 ml BID FLUSH 11/18/16 21:00 11/24/16 08:38 (Zofran Inj) 4 mg Q6H PRN IVP 11/18/16 19:30 11/24/16 00:48 (Dulcolax Supp) 10 mg DAILY PRN [place] 11/18/16 19:30 (Tylenol) 650 mg Q6H PRN PO 11/18/16 19:30 ([place] 5-325 Mg) 1 tab Q4H PRN PO 11/18/16 19:30 11/23/16 15:56 (Morphine Inj) 2 mg Q3H PRN IV 11/18/16 19:30 11/20/16 17:05 Miscellaneous Information 1 Q361D XX 11/18/16 19:30 11/18/16 19:30 (Chlorhexidine 2% Cloth) Taper DAILY@04 TOP 11/19/16 04:00 11/15/17 03:59 11/22/16 04:00 (Chlorhexidine 2% Cloth) 3 pack UNSCH PRN TOP 11/18/16 19:30 (Ativan Inj) 1 mg Q4H PRN IV PUSH 11/18/16 21:30 11/24/16 02:25 Diphenhydramine HCl 25 mg 25 mg Q4H PRN IV PUSH 11/19/16 00:00 11/18/16 23:59 (NS 1000 ml Inj) 1,000 ml @ 0 mls/hr Q0M PRN IV 11/19/16 09:14 11/21/16 09:27 Heparin Sodium (Porcine) 8000 units 8,000 units UNSCH PRN IVF 11/19/16 09:15 Sodium Chloride 1,000 ml @ 200 mls/hr Q5H PRN IV 11/19/16 09:14 11/21/16 09:28 (NS 1000 ml Inj) 1,000 ml @ 0 mls/hr Q0M PRN IV 11/19/16 09:14 (Mannitol Inj) 12.5 gm UNSCH PRN IV 11/19/16 09:15 (Albumin 25% Inj) 25 gm UNSCH PRN IV 11/19/16 09:15 (NS Flush) 5 ml UNSCH PRN IVF 11/19/16 09:15 11/21/16 09:29 (Heparin Inj) UNSCH PRN .XX 11/19/16 09:15 11/23/16 11:37 (Gentamicin (Dialysis) Inj) 20 mg UNSCH PRN IV 11/19/16 09:15 11/23/16 11:36 (Zofran Inj) 4 mg UNSCH PRN IV 11/19/16 09:15 11/22/16 22:04 (Tylenol) 650 mg UNSCH PRN PO 11/19/16 09:15 (Benadryl) 25 mg UNSCH PRN PO 11/19/16 09:15 (Nitrostat Sl) 0.4 mg UNSCH PRN SL 11/19/16 09:15 (Catapres) 0.1 mg UNSCH PRN PO 11/19/16 09:15 (Gelfoam 12 Mm/7 Mm Top) 1 foam UNSCH PRN TOP 11/19/16 09:15 11/19/16 17:18 (NS Flush) UNSCH PRN IVF 11/19/16 14:15 (Heparin Inj) UNSCH PRN IVF 11/19/16 14:15 (Deltasone) 60 mg DAILY PO 11/22/16 10:00 11/24/16 08:38 (Renvela) 2,400 mg TIDAC PO 11/24/16 12:00 (Cellcept) 500 mg BID@06,18 PO 11/24/16 18:00 Urinary Catheter: No Vascular Central Line Catheter: No A/P Problem List: (1) Cellulitis of left leg ICD Code: L03.116 Status: Acute (2) Acute renal failure ICD Code: N17.9 Status: Acute (3) Thrombocytopenia ICD Code: D69.6 Status: Acute (4) Hyperkalemia ICD Code: E87.5 Status: Resolved (5) Cirrhosis ICD Code: K74.60 Status: Acute (6) Anemia ICD Code: D64.9 Status: Acute Plan: Likely due to liver disease, renal disease, hypersplenism. check iron studies and ferritin, check stool guaiac. monitor hemoglobin. No signs of active beeding. (7) Heartburn ICD Code: R12 Status: Acute Plan: Will rx mylanta as needed. (8) H/O ETOH abuse ICD Code: Z87.898 Status: Acute Plan: States sober for 11 months. Reinforced on the importance to remain sober. Assessment and Plan (1) Cellulitis of left leg Plan: Teresa treated with IV zosyn. Will swittch to oral Levaquin to complete a total of 10 days. Cellulitis improving. DVT ruled out with doppler (2) Acute renal failure Plan: Unclear etiology. Patient is anuric. Nephrology consulted and following. appreciate recommendations. on HD as per nephrology. 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 The disease appears to be active. Not much interstitial fibrosis or tubular atrophy. Not much data is available for treatment of this condition. Consensus is to treat it just like RPGN from other causes: vasculitis, lupus or anti GBM disease. Cellcept added by nephrology. (3) Thrombocytopenia Plan: likely due to liver disease and hypersplenism. plt improving. continue to monitor platelets Platelets trending down - today 80 k, continue to monitor. (4) Hyperkalemia Plan: K 6.0 on presentation, Resolved after HD. Continue to monitor BMP. fu BMP (5) Cirrhosis Plan: Hep profile negative. Likely alcoholic since there is h/o etoh abuse. GI consult appreciated - IGA nephropathy is associated with cirrhosis. renal recovery prognosis is poor. Patient has MELD score of 30. fu AFP, for EGD/colonoscopy sometime next week. Assessment and Plan DVT prophylaxis: SCDs, no chemotherapy prophylaxis given thrombocytopenia Discharge Planning Continue to monitor in the medical floor. Problem Qualifiers (1) Acute renal failure: Qualified Code: N17.0 - Acute renal failure with tubular necrosis (2) Cirrhosis: Tariq Chand MD Nov 24, 2016 11:09
[2016-11-24] MEDS: ONDANSETRON HCL 4 MG/2 ML VIAL IV PRN (13:39)
[2016-11-24] MEDS: ALUMINUM/MAGNESIUM/SIMETH 30 ML CUP PO PRN (13:46)
[2016-11-24] MEDS: ACETAMINOPHEN/HYDROcodone 325 MG/5 MG TAB PO PRN (15:08)
[2016-11-24] MEDS: MYCOPHENOLATE MOFETIL 500 MG TAB PO SCH (17:56)
[2016-11-24 20:14] LABS: FERRITIN 909 NG/ML (26-388); TRANSFERRIN IRON PROFILE 132 MG/DL (200-360)
[2016-11-24 20:22] LABS: ALKALINE PHOSPHATASE 59 U/L (45-117); ALT (GPT) 42 U/L (12-78); ANION GAP 14 MEQ/L (5-15); AST (GOT) 63 U/L (15-37); BICARBONATE 28.1 MEQ/L (21.0-32.0); BLOOD UREA NITROGEN 115 MG/DL (7-18); CHLORIDE 93 MEQ/L (98-107); GLOMERULAR FILTRATION RATE 4 ML/MIN (>89); POTASSIUM 4.9 MEQ/L (3.5-5.1); SODIUM (NA) 135 MEQ/L (136-145); TOTAL BILIRUBIN ADULT 0.6 MG/DL (0.2-1.0)
[2016-11-25] VITALS (27 sets, daily range): BP systolic 93–152; BP diastolic 53–89; PULSE 62–87; RESP 16–22; TEMP 97.5–98.2; O2SAT 90–96
[2016-11-25] MEDS: LORazepam 2 MG/ML VIAL IV PUSH PRN (00:07)
[2016-11-25] MEDS: ONDANSETRON HCL 4 MG/2 ML VIAL IVP PRN ×2 (00:07→19:37)
[2016-11-25] MEDS: SODIUM CHLORIDE 0.9% FLUSH 5 ML FLUSH FLUSH SCH ×3 (00:08→20:54)
[2016-11-25] MEDS: ACETAMINOPHEN/HYDROcodone 325 MG/5 MG TAB PO PRN ×2 (00:09→19:36)
[2016-11-25] MEDS: CHLORHEXIDINE GLUCONATE 2 % 1 PACK (2 CLOTHS) TOP SCH (04:00)
[2016-11-25] MEDS: MYCOPHENOLATE MOFETIL 500 MG TAB PO SCH ×2 (06:00→17:53)
[2016-11-25 07:44] LABS: AUTOMATED NEUTROPHIL # 10.6 TH/MM3 (1.8-7.7); EOSINOPHIL % 0.4 % (0.0-4.0); HEMATOCRIT 25.9 % (39.0-51.0); LYMPH % 9.5 % (9.0-44.0); LYMPHOCYTE # 1.3 TH/MM3 (1.0-4.8); MEAN CELL VOLUME 93.3 FL (80.0-100.0); MEAN CORPUSCULAR HEMOGLOBIN 32.6 PG (27.0-34.0); MONO % 10.7 % (0.0-8.0); NEUT % 79.4 % (16.0-70.0); PLATELET COUNT 97 TH/MM3 (150-450); RED BLOOD COUNT 2.78 MIL/MM3 (4.50-5.90); RED CELL DISTRIBUTION WIDTH 14.2 % (11.6-17.2); WHITE BLOOD COUNT 13.4 TH/MM3 (4.0-11.0)
[2016-11-25 07:48] LABS: HEMO FLAGS AUTO DIFF
[2016-11-25 08:15] LABS: BICARBONATE 27.1 MEQ/L (21.0-32.0)
[2016-11-25] MEDS: predniSONE 20 MG TAB PO SCH (08:19)
[2016-11-25] MEDS: SEVELAMER CARBONATE 800 MG TAB PO SCH ×3 (08:20→17:52)
[2016-11-25] MEDS: ONDANSETRON HCL 4 MG/2 ML VIAL IV PRN (08:22)
[2016-11-25] MEDS: ALUMINUM/MAGNESIUM/SIMETH 30 ML CUP PO PRN ×2 (08:22→19:37)
[2016-11-25 09:54] LABS: PLATELET ESTIMATE SMEAR LOW (NORMAL); PLATELET MORPHOLOGY NORMAL (NORMAL); SCAN/DIFF AUTO DIFF CONFIRMED
--- NOTE | 2016-11-25 10:04 | HHI.NPPN ---
Subjective Complaints: Confused, Obesity General Problems: Edema, Hypertension Renal Failure: Acute Interval History Notes were reviewed. To have dialysis tomorrow. He likely needs longer duration of dialysis. Review of Systems General Constitutional: Fatigue Respiratory Lungs: SOB Cardiovascular Cardiac: Edema Gastrointestinal Gastrointestinal: Nausea & Vomiting Objective Data Data 11/24/16 11/25/16 19:00 07:00 Intake Total 580 ml 480 ml Balance 580 ml 480 ml Intake Oral 480 ml 480 ml IV Total 100 ml # Voids 2 2 # Bowel Movements 2 1 Vital Signs Date Time Temp Pulse Resp B/P Pulse Ox O2 Delivery O2 Flow Rate FiO2 11/25/16 09:41 79 11/25/16 08:00 72 11/25/16 08:00 97.5 72 18 120/79 95 11/25/16 05:00 69 11/25/16 04:45 97.9 80 16 114/66 95 11/25/16 04:00 72 11/25/16 03:00 75 11/25/16 02:00 75 11/25/16 01:04 97.9 71 16 144/85 94 11/25/16 01:00 70 11/25/16 00:00 71 11/24/16 23:00 74 11/24/16 22:00 68 11/24/16 21:00 70 11/24/16 20:00 71 11/24/16 19:42 98.2 68 16 140/86 96 11/24/16 19:00 74 11/24/16 18:05 71 11/24/16 17:10 71 11/24/16 16:03 72 11/24/16 16:03 18 11/24/16 15:04 74 11/24/16 15:04 98.0 74 18 147/78 98 11/24/16 14:04 90 11/24/16 14:00 73 11/24/16 13:24 69 11/24/16 12:09 68 11/24/16 11:48 97.6 69 18 130/83 97 11/24/16 11:48 69 11/24/16 10:17 75 -: 11/25/16 0716 11/25/16 0716 Microbiology 11/25/16 Stool Occult Blood ([facility]CKINLEY) - Final, Complete HEMOCCULT POSITIVE Tubes & Lines: Vas-Cath Physical Exam General Appearance: Well Developed, Well Nourished, No Acute Distress, Comfortable Eyes Eye Exam: Pupils Equal Throat Throat Exam: Oral Mucosa [place] & Moist Pulmonary Resp Exam: Clear Bilaterally, Breath Sounds Equal, No Distress Cardiology CV Exam: Regular, Normal Sinus Rhythm, Good Perfusion Gastrointestinal/Abdomen GI Exam: Soft, Non-Tender, Bowel Sounds Present, Positive Bowel Movement Musculoskeletal MS Exam: Joints Intact, Normal Gait, Normal Tone Integumentary Skin Exam: Clear, Warm, Dry, Intact Extremeties Extremities Exam: Pedal Pulses Palpable, Dependent Edema Neurologic Neuro Exam: Alert, Awake, Oriented, Speech Clear, Moving All Extremities Psychiatric Psych Exam: Appropriate Responses Assessment/Plan Discussed Condition With: Patient Assessment Summary: SAL/Acute Renal Failure, Fluid/Volume Overload, Proteinuria Problem List: (1) Acute renal failure Plan: 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 The disease appears to be active. Not much interstitial fibrosis or tubular atrophy. Not much data is available for treatment of this condition. Consensus is to treat it just like RPGN from other causes: vasculitis, lupus or anti GBM disease. Some data to suggest benefit with CellCept. I have added CellCept. Continue Prednisone. Prognosis for renal recovery is poor. IgA nephropathy has been associated with Cirrhosis of the liver. Increase Renvela to 3 tabs with meals to manage hyperphosphatemia. Needs dietary restriction of phosphorus and potassium. 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 No evidence of thrombotic microangiopathy. (3) Cirrhosis Plan: per findings on Ct scan long hx of heavy drinking Problem Qualifiers (1) Acute renal failure: Qualified Code: N17.0 - Acute renal failure with tubular necrosis (2) Cirrhosis: Fredo Mayer MD Nov 25, 2016 10:04
[2016-11-25] MEDS: PIPERACIL-TAZO 2.25 GM PREMIX 50 ML IV SCH ×2 (11:16)
--- NOTE | 2016-11-25 11:26 | HHI.PR ---
Subjective Remarks resting comfortably with no distress. denies pain. no fever. d/w the RN and no acute issues over night. Objective Vitals Vital Signs Date Time Temp Pulse Resp B/P Pulse Ox O2 Delivery O2 Flow Rate FiO2 11/25/16 10:18 75 11/25/16 09:41 79 11/25/16 08:00 72 11/25/16 08:00 97.5 72 18 120/79 95 11/25/16 05:00 69 11/25/16 04:45 97.9 80 16 114/66 95 11/25/16 04:00 72 11/25/16 03:00 75 11/25/16 02:00 75 11/25/16 01:04 97.9 71 16 144/85 94 11/25/16 01:00 70 11/25/16 00:00 71 11/24/16 23:00 74 11/24/16 22:00 68 11/24/16 21:00 70 11/24/16 20:00 71 11/24/16 19:42 98.2 68 16 140/86 96 11/24/16 19:00 74 11/24/16 18:05 71 11/24/16 17:10 71 11/24/16 16:03 72 11/24/16 16:03 18 11/24/16 15:04 74 11/24/16 15:04 98.0 74 18 147/78 98 11/24/16 14:04 90 11/24/16 14:00 73 11/24/16 13:24 69 11/24/16 12:09 68 11/24/16 11:48 97.6 69 18 130/83 97 11/24/16 11:48 69 I/O 11/24/16 11/24/16 11/24/16 11/25/16 11/25/16 11/25/16 07:00 15:00 23:00 07:00 15:00 23:00 Intake Total 580 ml 480 ml Balance 580 ml 480 ml Intake Oral 480 ml 480 ml IV Total 100 ml # Voids 2 2 # Bowel Movements 2 1 Result Diagram: 11/25/16 0716 11/25/16 0716 Imaging Last Impressions Renal Biopsy CT 11/22/16 0000 Signed Impressions: Service Date/Time: October 11:57 - CONCLUSION: Uncomplicated CT guided biopsy of the right lower pole kidney. Derek Monet MD Catheter Placement X-Ray 11/19/16 1058 Signed Impressions: Service Date/Time: Saturday, November 19, 2016 13:38 - CONCLUSION: Uncomplicated line placement as above. Horace Zapata MD Renal Ultrasound 11/19/16 0000 Signed Impressions: Service Date/Time: Saturday, November 19, 2016 09:26 - CONCLUSION: Normal examination. Garrett Lopes MD Radiology Special Procedure 11/19/16 0000 Signed Impressions: Service Date/Time: Saturday, November 19, 2016 00:00 - CONCLUSION: Hemostasis around the catheter insertion site was achieved. The patient tolerated the procedure well. Horace Zapata MD Abdomen/Pelvis CT 11/19/16 0000 Signed Impressions: Service Date/Time: Saturday, November 19, 2016 13:56 - CONCLUSION: Stable findings of cirrhosis and splenomegaly with varices. Otherwise negative. Garrett Lopes MD Chest X-Ray 11/18/16 1628 Signed Impressions: Service Date/Time: Friday, November 18, 2016 16:49 - CONCLUSION: Cardiomegaly. Derek Rider MD Objective Remarks GENERAL: This is a well-nourished, well-developed patient, in no apparent distress. CARDIOVASCULAR: Regular rate and regular rhythm without murmurs, gallops, or rubs. RESPIRATORY: Clear to auscultation. Breath sounds equal bilaterally. No wheezes , rales, or rhonchi. GASTROINTESTINAL: Abdomen soft, non-tender, nondistended. Normal, active bowel sounds MUSCULOSKELETAL: Extremities without clubbing, cyanosis, or edema. NEURO: Alert & Oriented x4 to person, place, time, situation. Moves all ext x4 Procedures renal biopsy Medications and IVs Current Medications Piperacillin Sod/ Tazobactam Sod 100 ml @ 200 mls/hr ONCE STAT IV Last administered on 11/18/16 17:00; Start 11/18/16 at 16:28; Stop 11/18/16 at 16:57 ; Status DC Vancomycin HCl/ Sodium Chloride (Vancomycin Inj/ NS 500 ml Inj) 523 ml @ 257.5 mls/ hr ONCE STAT IV Last administered on 11/18/16 17:54; Start 11/18/16 at 16:28; Stop 11/18/16 at 18:29; Status DC Ondansetron HCl (Zofran Inj) 4 mg ONCE ONCE IV PUSH Last administered on 18:07; Start 11/18/16 at 18:15; Stop 11/18/16 at 18:16; Status DC Sodium Polystyrene Sulfonate 30 gm 30 gm ONCE ONCE PO Last administered on 19:29; Start 11/18/16 at 19:15; Stop 11/18/16 at 19:16; Status DC Pharmacy Profile Note 0 ml @ 0 mls/hr UNSCH OTHER ; Start 11/18/16 at 19:30; Stop 11/18/16 at 21:31; Status DC Piperacillin Sod/ Tazobactam Sod (Zosyn 2.25 Gm Premix) 50 ml @ 100 mls/hr Q6H IV Last administered on 11/24/16 11:23; Start 11/19/16 at 00:00; Stop at 11:47; Status DC IV Flush (NS Flush) 2 ml UNSCH PRN FLUSH FLUSH AFTER USING IV ACCESS; Start at 19:30 IV Flush (NS Flush) 2 ml BID FLUSH Last administered on 11/25/16 08:19; Start 11/18/16 at 21:00 Ondansetron HCl (Zofran Inj) 4 mg Q6H PRN IVP NAUSEA OR VOMITING Last administered on 11/25/16 00:07; Start 11/18/16 at 19:30 Bisacodyl (Dulcolax Supp) 10 mg DAILY PRN [place] CONSTIPATION; Start 11/18/16 at 19 :30 Acetaminophen (Tylenol) 650 mg Q6H PRN PO FEVER/PAIN SCALE 1 TO 2; Start at 19:30 Acetaminophen/ Hydrocodone Bitart ([place] 5-325 Mg) 1 tab Q4H PRN PO PAIN SCALE 3 TO 5 Last administered on 11/25/16 00:09; Start 11/18/16 at 19:30 Morphine Sulfate (Morphine Inj) 2 mg Q3H PRN IV Pain 6-10 Last administered on 11/20/16 17:05; Start 11/18/16 at 19:30 Miscellaneous Information 1 Q361D XX Last administered on 11/18/16 19:30; Start 11/18/16 at 19:30 Chlorhexidine Gluconate (Chlorhexidine 2% Cloth) Taper DAILY@04 TOP Last administered on 11/22/16 04:00; Start 11/19/16 at 04:00; Stop 11/15/17 at 03:59 Chlorhexidine Gluconate (Chlorhexidine 2% Cloth) 3 pack UNSCH PRN TOP HYGIENIC CARE; Start 11/18/16 at 19:30 Lorazepam (Ativan Inj) 1 mg Q4H PRN IV PUSH AGITATION/ANXIETY Last administered on 11/25/16 00:07; Start 11/18/16 at 21:30 Diphenhydramine HCl 25 mg 25 mg Q4H PRN IV PUSH ITCHING/RASH Last administered on 11/18/16 23:59; Start 11/19/16 at 00:00 Methylprednisolone Sodium Succinate 500 mg/Dextrose 100 ml @ 200 mls/hr DAILY IV Last administered on 11/22/16 08:54; Start 11/19/16 at 09:15; Stop at 09:00; Status DC Sodium Chloride (NS 1000 ml Inj) 1,000 ml @ 0 mls/hr Q0M PRN IV For Prime & Rinse Back Last administered on 11/21/16 09:27; Start 11/19/16 at 09:14 Heparin Sodium (Porcine) 8000 units 8,000 units UNSCH PRN IVF WITH DIALYSIS; Start 11/19/16 at 09:15 Sodium Chloride 1,000 ml @ 200 mls/hr Q5H PRN IV WITH DIALYSIS Last administered on 11/21/16 09:28; Start 11/19/16 at 09:14 Sodium Chloride (NS 1000 ml Inj) 1,000 ml @ 0 mls/hr Q0M PRN IV WITH DIALYSIS; Start 11/19/16 at 09:14 Mannitol (Mannitol Inj) 12.5 gm UNSCH PRN IV WITH DIALYSIS; Start 11/19/16 at 09:15 Albumin Human (Albumin 25% Inj) 25 gm UNSCH PRN IV WITH DIALYSIS; Start at 09:15 IV Flush (NS Flush) 5 ml UNSCH PRN IVF WITH DIALYSIS Last administered on 09:29; Start 11/19/16 at 09:15 Heparin Sodium (Porcine) (Heparin Inj) UNSCH PRN .XX WITH DIALYSIS Last administered on 11/23/16 11:37; Start 11/19/16 at 09:15 Gentamicin Sulfate (Gentamicin (Dialysis) Inj) 20 mg UNSCH PRN IV WITH DIALYSIS Last administered on 11/23/16 11:36; Start 11/19/16 at 09:15 Ondansetron HCl (Zofran Inj) 4 mg UNSCH PRN IV WITH DIALYSIS Last administered on 11/25/16 08:22; Start 11/19/16 at 09:15 Acetaminophen (Tylenol) 650 mg UNSCH PRN PO for headach, pain, temp > 101F; Start 11/19/16 at 09:15 Diphenhydramine HCl (Benadryl) 25 mg UNSCH PRN PO for hives/itching/anaphylaxis ; Start 11/19/16 at 09:15 Nitroglycerin (Nitrostat Sl) 0.4 mg UNSCH PRN SL CHEST PAIN; Start 11/19/16 at 09:15 Clonidine (Catapres) 0.1 mg UNSCH PRN PO for BP > 180/100 X 2 readings; Start 11/19/16 at 09:15 Gelatin (Gelfoam 12 Mm/7 Mm Top) 1 foam UNSCH PRN TOP SEE LABEL COMMENTS Last administered on 11/19/16 17:18; Start 11/19/16 at 09:15 Heparin Sodium (Porcine) (*HEPARIN INJ Periprocedural ONLY) 10,000 units STK- MED ONCE .ROUTE Last administered on 11/19/16 13:43; Start 11/19/16 at 13:43; Stop 11/19/16 at 13:44; Status DC IV Flush (NS Flush) UNSCH PRN IVF SEE PROTOCOL; Start 11/19/16 at 14:15 Heparin Sodium (Porcine) (Heparin Inj) UNSCH PRN IVF SEE PROTOCOL; Start 11/19 at 14:15 Thrombin (Thrombin Top Soln) 5,000 units STK-MED ONCE .ROUTE Last administered on 11/19/16 16:58; Start 11/19/16 at 16:58; Stop 11/19/16 at 16:59; Status DC Gelatin (Gelfoam 12 Mm/7 Mm Top) 2 foam STK-MED ONCE EXT Last administered on 18:01; Start 11/19/16 at 18:01; Stop 11/19/16 at 18:02; Status DC Protamine Sulfate (Protamine Sulfate Inj) 50 mg STK-MED ONCE .ROUTE Last administered on 11/19/16 19:25; Start 11/19/16 at 19:22; Stop 11/19/16 at 19:23 ; Status DC Thrombin (Thrombin Top Soln) 5,000 units STK-MED ONCE .ROUTE Last administered on 11/19/16 19:50; Start 11/19/16 at 19:50; Stop 11/19/16 at 19:51; Status DC Sevelamer Carbonate (Renvela) 1,600 mg TIDAC PO Last administered on 11/24/16 08:38; Start 11/20/16 at 17:00; Stop 11/24/16 at 09:04; Status DC Promethazine HCl (Phenergan Inj) 25 mg ONCE ONCE IM Last administered on 23:23; Start 11/20/16 at 23:15; Stop 11/20/16 at 23:18; Status DC Prednisone (Deltasone) 60 mg DAILY PO Last administered on 11/25/16 08:19; Start 11/22/16 at 10:00 Lidocaine/ Epinephrine (Xylocaine-Epi 1%-1:100,000 Inj) 20 ml STK-MED ONCE .ROUTE Last administered on 11/22/16 10:48; Start 11/22/16 at 10:48; Stop at 10:49; Status DC Fentanyl Citrate (fentaNYL INJ) 250 mcg STK-MED ONCE .ROUTE Last administered on 11/22/16 11:41; Start 11/22/16 at 11:41; Stop 11/22/16 at 11:42; Status DC Midazolam HCl (Versed Inj) 5 mg STK-MED ONCE .ROUTE Last administered on 11:41; Start 11/22/16 at 11:41; Stop 11/22/16 at 11:42; Status DC Simethicone (Mylicon Chew) 80 mg ONCE ONCE CHEW Last administered on 23:00; Start 11/23/16 at 23:00; Stop 11/23/16 at 23:04; Status DC Sevelamer Carbonate (Renvela) 2,400 mg TIDAC PO Last administered on 11/25/16 08:20; Start 11/24/16 at 12:00 Mycophenolate Mofetil 500 mg 500 mg BID@06,18 PO Last administered on 06:00; Start 11/24/16 at 18:00 Piperacillin Sod/ Tazobactam Sod (Zosyn 2.25 Gm Premix) 50 ml @ 100 mls/hr Q12H IV ; Start 11/25/16 at 00:00 Al Hydrox/Mg Hydrox/Simethicone (Mag-Al Plus Susp Liq) 30 ml Q6H PRN PO HEARTBURN Last administered on 11/25/16 08:22; Start 11/24/16 at 14:00 A/P Assessment and Plan A/P - Cellulitis of left leg will switch to po antibiotic.DVT ruled out with doppler. - Acute renal failure Patient is anuric. Nephrology consulted and following. appreciate recommendations. on HD as per nephrology. 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 has a poor diagnosis. The disease appears to be active. Not much interstitial fibrosis or tubular atrophy. Cellcept added by nephrology. -Thrombocytopenia will monitor. - Cirrhosis- likely due to alcohol- Gi evaluated. - Anemia Likely due to liver disease, renal disease, hypersplenism.positive stool for blood-however no active bleeding- GI following- needs endoscopy- likely outpatient. - H/O ETOH abuse States sober for 11 months. Reinforced on the importance to remain sober. DVT prophylaxis: SCDs, no chemotherapy prophylaxis given thrombocytopenia Sachi Medeiros MD Nov 25, 2016 11:26
[2016-11-25] MEDS: CLINDAMYCIN 150 MG CAP PO SCH (17:53)
[2016-11-26] VITALS (22 sets, daily range): BP systolic 105–149; BP diastolic 57–90; PULSE 62–92; RESP 15–20; TEMP 96.8–98.4; O2SAT 93–97
[2016-11-26] MEDS: CLINDAMYCIN 150 MG CAP PO SCH ×5 (00:18→23:32)
[2016-11-26] MEDS: LORazepam 2 MG/ML VIAL IV PUSH PRN ×2 (00:20→23:33)
[2016-11-26] MEDS: CHLORHEXIDINE GLUCONATE 2 % 1 PACK (2 CLOTHS) TOP SCH (03:36)
[2016-11-26] MEDS: MYCOPHENOLATE MOFETIL 500 MG TAB PO SCH ×2 (06:05→17:59)
[2016-11-26] MEDS: SEVELAMER CARBONATE 800 MG TAB PO SCH ×3 (08:00→17:59)
[2016-11-26] MEDS: predniSONE 20 MG TAB PO SCH (09:00)
--- NOTE | 2016-11-26 09:20 | HHI.PR ---
Subjective Remarks having his HD today. in no acute distress. denies pain. no new complaints. Objective Vitals Vital Signs Date Time Temp Pulse Resp B/P Pulse Ox O2 Delivery O2 Flow Rate FiO2 11/26/16 07:00 70 11/26/16 07:00 98.4 75 18 142/77 93 11/26/16 06:00 62 11/26/16 05:00 62 11/26/16 04:00 97.6 62 18 140/81 93 11/26/16 03:30 69 11/26/16 03:00 66 11/26/16 02:00 66 11/26/16 01:00 68 11/26/16 00:00 97.4 68 20 149/90 97 11/25/16 23:30 67 11/25/16 23:00 77 11/25/16 22:00 67 11/25/16 21:00 66 11/25/16 20:00 97.9 71 22 152/89 95 11/25/16 19:17 72 11/25/16 18:06 94 21 11/25/16 18:01 79 11/25/16 17:21 62 11/25/16 16:23 67 11/25/16 15:29 84 11/25/16 15:29 98.2 87 18 135/85 96 11/25/16 14:00 64 11/25/16 13:06 65 11/25/16 12:03 71 11/25/16 11:53 90 21 11/25/16 11:49 84 11/25/16 11:49 97.7 84 18 93/53 95 11/25/16 10:18 75 11/25/16 09:41 79 I/O 11/25/16 11/25/16 11/25/16 11/26/16 11/26/16 11/26/16 07:00 15:00 23:00 07:00 15:00 23:00 Intake Total 480 ml 730 ml 320 ml Balance 480 ml 730 ml 320 ml Intake Oral 480 ml 600 ml 320 ml IV Total 130 ml # Voids 2 2 3 # Bowel Movements 1 1 2 Result Diagram: 11/25/16 0716 11/25/16 0716 Imaging Last Impressions Renal Biopsy CT 11/22/16 0000 Signed Impressions: Service Date/Time: October 11:57 - CONCLUSION: Uncomplicated CT guided biopsy of the right lower pole kidney. Derek Monet MD Catheter Placement X-Ray 11/19/16 1058 Signed Impressions: Service Date/Time: Saturday, November 19, 2016 13:38 - CONCLUSION: Uncomplicated line placement as above. Horace Zapata MD Renal Ultrasound 11/19/16 0000 Signed Impressions: Service Date/Time: Saturday, November 19, 2016 09:26 - CONCLUSION: Normal examination. Garrett Lopes MD Radiology Special Procedure 11/19/16 0000 Signed Impressions: Service Date/Time: Saturday, November 19, 2016 00:00 - CONCLUSION: Hemostasis around the catheter insertion site was achieved. The patient tolerated the procedure well. Horace Zapata MD Abdomen/Pelvis CT 11/19/16 0000 Signed Impressions: Service Date/Time: Saturday, November 19, 2016 13:56 - CONCLUSION: Stable findings of cirrhosis and splenomegaly with varices. Otherwise negative. Garrett Lopes MD Chest X-Ray 11/18/16 1628 Signed Impressions: Service Date/Time: Friday, November 18, 2016 16:49 - CONCLUSION: Cardiomegaly. Derek Rider MD Objective Remarks GENERAL: This is a well-nourished, well-developed patient, in no apparent distress. CARDIOVASCULAR: Regular rate and regular rhythm without murmurs, gallops, or rubs. RESPIRATORY: Clear to auscultation. Breath sounds equal bilaterally. No wheezes , rales, or rhonchi. GASTROINTESTINAL: Abdomen soft, non-tender, nondistended. Normal, active bowel sounds MUSCULOSKELETAL: Extremities without clubbing, cyanosis, or edema. NEURO: Alert & Oriented x4 to person, place, time, situation. Moves all ext x4 Procedures renal biopsy Medications and IVs Current Medications Piperacillin Sod/ Tazobactam Sod 100 ml @ 200 mls/hr ONCE STAT IV Last administered on 11/18/16 17:00; Start 11/18/16 at 16:28; Stop 11/18/16 at 16:57 ; Status DC Vancomycin HCl/ Sodium Chloride (Vancomycin Inj/ NS 500 ml Inj) 523 ml @ 257.5 mls/ hr ONCE STAT IV Last administered on 11/18/16 17:54; Start 11/18/16 at 16:28; Stop 11/18/16 at 18:29; Status DC Ondansetron HCl (Zofran Inj) 4 mg ONCE ONCE IV PUSH Last administered on 18:07; Start 11/18/16 at 18:15; Stop 11/18/16 at 18:16; Status DC Sodium Polystyrene Sulfonate 30 gm 30 gm ONCE ONCE PO Last administered on 19:29; Start 11/18/16 at 19:15; Stop 11/18/16 at 19:16; Status DC Pharmacy Profile Note 0 ml @ 0 mls/hr UNSCH OTHER ; Start 11/18/16 at 19:30; Stop 11/18/16 at 21:31; Status DC Piperacillin Sod/ Tazobactam Sod (Zosyn 2.25 Gm Premix) 50 ml @ 100 mls/hr Q6H IV Last administered on 11/24/16 11:23; Start 11/19/16 at 00:00; Stop at 11:47; Status DC IV Flush (NS Flush) 2 ml UNSCH PRN FLUSH FLUSH AFTER USING IV ACCESS; Start at 19:30 IV Flush (NS Flush) 2 ml BID FLUSH Last administered on 11/25/16 20:54; Start 11/18/16 at 21:00 Ondansetron HCl (Zofran Inj) 4 mg Q6H PRN IVP NAUSEA OR VOMITING Last administered on 11/25/16 19:37; Start 11/18/16 at 19:30 Bisacodyl (Dulcolax Supp) [address] CONSTIPATION; Start 11/18/16 at 19 :30 Acetaminophen (Tylenol) 650 mg Q6H PRN PO FEVER/PAIN SCALE 1 TO 2; Start at 19:30 Acetaminophen/ Hydrocodone Bitart ([place] 5-325 Mg) 1 tab Q4H PRN PO PAIN SCALE 3 TO 5 Last administered on 11/25/16 19:36; Start 11/18/16 at 19:30 Morphine Sulfate (Morphine Inj) 2 mg Q3H PRN IV Pain 6-10 Last administered on 11/20/16 17:05; Start 11/18/16 at 19:30 Miscellaneous Information 1 Q361D XX Last administered on 11/18/16 19:30; Start 11/18/16 at 19:30 Chlorhexidine Gluconate (Chlorhexidine 2% Cloth) Taper DAILY@04 TOP Last administered on 11/22/16 04:00; Start 11/19/16 at 04:00; Stop 11/15/17 at 03:59 Chlorhexidine Gluconate (Chlorhexidine 2% Cloth) 3 pack UNSCH PRN TOP HYGIENIC CARE; Start 11/18/16 at 19:30 Lorazepam (Ativan Inj) 1 mg Q4H PRN IV PUSH AGITATION/ANXIETY Last administered on 11/26/16 00:20; Start 11/18/16 at 21:30 Diphenhydramine HCl 25 mg 25 mg Q4H PRN IV PUSH ITCHING/RASH Last administered on 11/18/16 23:59; Start 11/19/16 at 00:00 Methylprednisolone Sodium Succinate 500 mg/Dextrose 100 ml @ 200 mls/hr DAILY IV Last administered on 11/22/16 08:54; Start 11/19/16 at 09:15; Stop at 09:00; Status DC Sodium Chloride (NS 1000 ml Inj) 1,000 ml @ 0 mls/hr Q0M PRN IV For Prime & Rinse Back Last administered on 11/21/16 09:27; Start 11/19/16 at 09:14 Heparin Sodium (Porcine) 8000 units 8,000 units UNSCH PRN IVF WITH DIALYSIS; Start 11/19/16 at 09:15 Sodium Chloride 1,000 ml @ 200 mls/hr Q5H PRN IV WITH DIALYSIS Last administered on 11/21/16 09:28; Start 11/19/16 at 09:14 Sodium Chloride (NS 1000 ml Inj) 1,000 ml @ 0 mls/hr Q0M PRN IV WITH DIALYSIS; Start 11/19/16 at 09:14 Mannitol (Mannitol Inj) 12.5 gm UNSCH PRN IV WITH DIALYSIS; Start 11/19/16 at 09:15 Albumin Human (Albumin 25% Inj) 25 gm UNSCH PRN IV WITH DIALYSIS; Start at 09:15 IV Flush (NS Flush) 5 ml UNSCH PRN IVF WITH DIALYSIS Last administered on 09:29; Start 11/19/16 at 09:15 Heparin Sodium (Porcine) (Heparin Inj) UNSCH PRN .XX WITH DIALYSIS Last administered on 11/23/16 11:37; Start 11/19/16 at 09:15 Gentamicin Sulfate (Gentamicin (Dialysis) Inj) 20 mg UNSCH PRN IV WITH DIALYSIS Last administered on 11/23/16 11:36; Start 11/19/16 at 09:15 Ondansetron HCl (Zofran Inj) 4 mg UNSCH PRN IV WITH DIALYSIS Last administered on 11/25/16 08:22; Start 11/19/16 at 09:15 Acetaminophen (Tylenol) 650 mg UNSCH PRN PO for headach, pain, temp > 101F; Start 11/19/16 at 09:15 Diphenhydramine HCl (Benadryl) 25 mg UNSCH PRN PO for hives/itching/anaphylaxis ; Start 11/19/16 at 09:15 Nitroglycerin (Nitrostat Sl) 0.4 mg UNSCH PRN SL CHEST PAIN; Start 11/19/16 at 09:15 Clonidine (Catapres) 0.1 mg UNSCH PRN PO for BP > 180/100 X 2 readings; Start 11/19/16 at 09:15 Gelatin (Gelfoam 12 Mm/7 Mm Top) 1 foam UNSCH PRN TOP SEE LABEL COMMENTS Last administered on 11/19/16 17:18; Start 11/19/16 at 09:15 Heparin Sodium (Porcine) (*HEPARIN INJ Periprocedural ONLY) 10,000 units STK- MED ONCE .ROUTE Last administered on 11/19/16 13:43; Start 11/19/16 at 13:43; Stop 11/19/16 at 13:44; Status DC IV Flush (NS Flush) UNSCH PRN IVF SEE PROTOCOL; Start 11/19/16 at 14:15 Heparin Sodium (Porcine) (Heparin Inj) UNSCH PRN IVF SEE PROTOCOL; Start 11/19 at 14:15 Thrombin (Thrombin Top Soln) 5,000 units STK-MED ONCE .ROUTE Last administered on 11/19/16 16:58; Start 11/19/16 at 16:58; Stop 11/19/16 at 16:59; Status DC Gelatin (Gelfoam 12 Mm/7 Mm Top) 2 foam STK-MED ONCE EXT Last administered on 18:01; Start 11/19/16 at 18:01; Stop 11/19/16 at 18:02; Status DC Protamine Sulfate (Protamine Sulfate Inj) 50 mg STK-MED ONCE .ROUTE Last administered on 11/19/16 19:25; Start 11/19/16 at 19:22; Stop 11/19/16 at 19:23 ; Status DC Thrombin (Thrombin Top Soln) 5,000 units STK-MED ONCE .ROUTE Last administered on 11/19/16 19:50; Start 11/19/16 at 19:50; Stop 11/19/16 at 19:51; Status DC Sevelamer Carbonate (Renvela) 1,600 mg TIDAC PO Last administered on 11/24/16 08:38; Start 11/20/16 at 17:00; Stop 11/24/16 at 09:04; Status DC Promethazine HCl (Phenergan Inj) 25 mg ONCE ONCE IM Last administered on 23:23; Start 11/20/16 at 23:15; Stop 11/20/16 at 23:18; Status DC Prednisone (Deltasone) 60 mg DAILY PO Last administered on 11/25/16 08:19; Start 11/22/16 at 10:00 Lidocaine/ Epinephrine (Xylocaine-Epi 1%-1:100,000 Inj) 20 ml STK-MED ONCE .ROUTE Last administered on 11/22/16 10:48; Start 11/22/16 at 10:48; Stop at 10:49; Status DC Fentanyl Citrate (fentaNYL INJ) 250 mcg STK-MED ONCE .ROUTE Last administered on 11/22/16 11:41; Start 11/22/16 at 11:41; Stop 11/22/16 at 11:42; Status DC Midazolam HCl (Versed Inj) 5 mg STK-MED ONCE .ROUTE Last administered on 11:41; Start 11/22/16 at 11:41; Stop 11/22/16 at 11:42; Status DC Simethicone (Mylicon Chew) 80 mg ONCE ONCE CHEW Last administered on 23:00; Start 11/23/16 at 23:00; Stop 1/27/17 at 23:04; Status DC Sevelamer Carbonate (Renvela) 2,400 mg TIDAC PO Last administered on 11/25/16 17:52; Start 11/24/16 at 12:00 Mycophenolate Mofetil 500 mg 500 mg BID@06,18 PO Last administered on 06:05; Start 11/24/16 at 18:00 Piperacillin Sod/ Tazobactam Sod (Zosyn 2.25 Gm Premix) 50 ml @ 100 mls/hr Q12H IV Last administered on 11/25/16 11:16; Start 11/25/16 at 00:00; Stop at 13:00; Status DC Al Hydrox/Mg Hydrox/Simethicone (Mag-Al Plus Susp Liq) 30 ml Q6H PRN PO HEARTBURN Last administered on 11/25/16 19:37; Start 11/24/16 at 14:00 Clindamycin HCl (Cleocin) 300 mg Q6HR PO Last administered on 11/26/16 06:05; Start 11/25/16 at 18:00; Stop 11/27/16 at 17:00 A/P Assessment and Plan A/P - Cellulitis of left leg switched to po antibiotic to finish the course of treatment.DVT ruled out with doppler. - Acute renal failure / glomerulonephritis Patient is anuric. Nephrology consulted and following. appreciate recommendations. on HD as per nephrology. 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 has a poor diagnosis. The disease appears to be active. Not much interstitial fibrosis or tubular atrophy. on prednisone and Cellcept per nephrology -Thrombocytopenia will monitor. - Cirrhosis- likely due to alcohol- GI evaluated. - Anemia Likely due to liver disease, renal disease, hypersplenism.positive stool for blood-however no active bleeding- GI following- needs endoscopy- likely outpatient. - H/O ETOH abuse States sober for 11 months. Reinforced on the importance to remain sober. DVT prophylaxis: SCDs, no chemotherapy prophylaxis given thrombocytopenia Sachi Medeiros MD Nov 26, 2016 09:19
--- NOTE | 2016-11-26 09:27 | HHI.NPPN ---
Subjective Complaints: Confused, Obesity General Problems: Edema, Hypertension Renal Failure: Acute Interval History Seen during dialysis. Remains oliguric. (Helen Gaspar) Review of Systems General Constitutional: Fatigue (Helen Gaspar) Respiratory Lungs: SOB (Helen Gaspar) Cardiovascular Cardiac: Edema (Helen Gaspar) Gastrointestinal Gastrointestinal: Nausea & Vomiting (Helen Gaspar) Objective Data Data 11/25/16 11/26/16 19:00 07:00 Intake Total 730 ml 320 ml Balance 730 ml 320 ml Intake Oral 600 ml 320 ml IV Total 130 ml # Voids 2 3 # Bowel Movements 1 2 Vital Signs Date Time Temp Pulse Resp B/P Pulse Ox O2 Delivery O2 Flow Rate FiO2 11/26/16 07:00 70 11/26/16 07:00 98.4 75 18 142/77 93 11/26/16 06:00 62 11/26/16 05:00 62 11/26/16 04:00 97.6 62 18 140/81 93 11/26/16 03:30 69 11/26/16 03:00 66 11/26/16 02:00 66 11/26/16 01:00 68 11/26/16 00:00 97.4 68 20 149/90 97 11/25/16 23:30 67 11/25/16 23:00 77 11/25/16 22:00 67 11/25/16 21:00 66 11/25/16 20:00 97.9 71 22 152/89 95 11/25/16 19:17 72 11/25/16 18:06 94 21 11/25/16 18:01 79 11/25/16 17:21 62 11/25/16 16:23 67 11/25/16 15:29 84 11/25/16 15:29 98.2 87 18 135/85 96 11/25/16 14:00 64 11/25/16 13:06 65 11/25/16 12:03 71 11/25/16 11:53 90 21 11/25/16 11:49 84 11/25/16 11:49 97.7 84 18 93/53 95 11/25/16 10:18 75 11/25/16 09:41 79 (Helen Gaspar) -: 11/25/16 0716 11/25/16 0716 Tubes & Lines: Vas-Cath (Helen Gaspar) Physical Exam General Appearance: Well Developed, Well Nourished, No Acute Distress, Comfortable ( Helen Gaspar) Eyes Eye Exam: Pupils Equal (Helen Gaspar) Throat Throat Exam: Oral Mucosa [place] & Moist (Helen Gaspar) Pulmonary Resp Exam: Clear Bilaterally, Breath Sounds Equal, No Distress (Helen Gaspar) Cardiology CV Exam: Regular, Normal Sinus Rhythm, Good Perfusion (Helen Gaspar) Gastrointestinal/Abdomen GI Exam: Soft, Non-Tender, Bowel Sounds Present (Helen Gaspar) Genitourinary Remarks anuric (Helen Gaspar) Musculoskeletal MS Exam: Joints Intact, Normal Gait, Normal Tone (Helen Gaspar) Integumentary Skin Exam: Clear, Warm, Dry, Intact (Helen Gaspar) Extremeties Extremities Exam: Pedal Pulses Palpable, Dependent Edema (Helen Gaspar) Neurologic Neuro Exam: Alert, Awake, Oriented, Speech Clear, Moving All Extremities ( Helen Gaspar) Psychiatric Psych Exam: Appropriate Responses (Helen Gaspar) Assessment/Plan Discussed Condition With: Patient Assessment Summary: SAL/Acute Renal Failure, Fluid/Volume Overload, Proteinuria Problem List: (1) Acute renal failure Plan: 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 . Not much interstitial fibrosis or tubular atrophy. The consensus of treatment for this condition is to treat it like RPGN from other causes: vasculitis, lupus or anti GBM disease. Some data to suggest benefit with CellCept, which was added; continue prednisone x 30 days Prognosis for renal recovery is poor. discussed with pt IgA nephropathy has also been associated with Cirrhosis of the liver. 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 Platelet count is stable. No evidence of thrombotic microangiopathy. (3) Cirrhosis Plan: per findings on Ct scan long hx of heavy drinking (Helen Gaspar) Plan patient was seen and examined. Discussed with Dr. Medeiros. Seen during dialysis. On 2K. To use the biggest dialyzer. PermCath placement. Continued dialysis. Continue Prednisone, and CellCept. (Fredo Mayer MD) Problem Qualifiers (1) Acute renal failure: Qualified Code: N17.0 - Acute renal failure with tubular necrosis (2) Cirrhosis: Helen Gaspar Nov 26, 2016 09:27 Fredo Mayer MD Nov 26, 2016 10:05
[2016-11-26] MEDS: HEPARIN SODIUM - IV 10,000 UNITS/10 ML VIAL PRN (11:21)
[2016-11-26] MEDS: GENTAMICIN SULFATE (DIALYSIS USE ONLY) 20 MG/2 ML VIAL IV PRN (11:21)
[2016-11-26] MEDS ORDERED: ceFAZolin 2 GM PREMIX 50 ML IV SCH (12:30)
[2016-11-26] MEDS ORDERED: VANCOMYCIN INJ 1,000 MG in SODIUM CHLOR 0.9% 250 ML INJ 250 ML IV SCH (12:30)
[2016-11-26] MEDS: SODIUM CHLORIDE 0.9% FLUSH 5 ML FLUSH FLUSH SCH ×2 (13:02→21:00)
[2016-11-26] MEDS ORDERED: THROMBIN (TOPICAL) 5,000 UNIT VIAL ONE (14:16)
[2016-11-26] MEDS ORDERED: fentaNYL CITRATE 250 MCG/5 ML AMP ONE (14:16)
[2016-11-26] MEDS ORDERED: MIDAZOLAM HCL 5 MG/5 ML VIAL ONE (14:16)
[2016-11-26] MEDS ORDERED: LIDOCAINE 1%/EPINEPHrine 1:100,000 SOLN 20 ML VIAL ONE (14:25)
--- NOTE | 2016-11-26 15:05 | PD.RAD ---
Post Procedure Progress Note Pre Procedure Diagnosis: (1) Acute renal failure Post Procedure Diagnosis: (1) Acute renal failure Procedure Date: Nov 26, 2016 Supervising Radiologist: Hong Huffman Proceduralist/Assist: RT John(R), RT Myah(R) Anesthesia: Conscious Sedation Plan of Activity Patient to Unit: Nursing Unit Patient Condition: Good See PACS Report for procedural detail/treatment Central Venous Access Device Procedure 1 Right Internal Jugular Hemodialysis Catheter Tunneled Placement dual lumen Hong Huffman MD Nov 26, 2016 15:05
[2016-11-26] MEDS ORDERED: HEPARIN SODIUM - IV 10,000 UNITS/10 ML VIAL IVF PRN (15:15)
[2016-11-26] MEDS ORDERED: SODIUM CHLORIDE 0.9% FLUSH 5 ML FLUSH IVF PRN (15:15)
--- NOTE | 2016-11-26 15:41 | RADRPT ---
EXAM DATE/TIME: 11/26/2016 14:33 [facility] COMPARISON: No previous studies available for comparison. INDICATIONS : Patient with acute renal failure in need of tunnelled dialysis catheter placement. MEDICAL HISTORY : Recurrent lower extremity cellulitis, Alcoholic, Dialysis SURGICAL HISTORY : Surgery to both lower extremities, Dialysis catheter placement ENCOUNTER: Subsequent ACUITY: 2 weeks PAIN SCORE: 0/10 FLUORO TIME: 0.4 minutes SEDATION TIME: 30 minutes SEDATION: 1.) 3 mg midazolam (Versed) IV 2.) 150 mcg fentanyl (Sublimaze) IV Prophylactic antibiotics were administered with appropriate pre-procedure timing. Vancomycin within 2 hours of procedure, Ancef (or alternative) within 1 hour of procedure. DEVICE: 1. 15 [place] dual lumen 23 cm Mustafa II Plus catheter PROCEDURE : 1. Fluoroscopically-guided venipuncture. 2. PermaCath placement. 3. Conscious sedation with continuous EKG and oximetry monitoring. The risks, benefits and alternatives to the procedure were explained and verbal and written consent w as obtained. The site was prepped in sterile fashion. Full sterile technique was used, including ca p, mask, sterile gloves and gown and a large sterile sheet. Hand hygiene and 2% chlorhexidine Betadi ne was utilized per protocol for cutaneous antisepsis with appropriate dry time for site. The skin a nd subcutaneous tissues were infiltrated with local anesthetic solution. Utilizing fluoroscopic guidance a dermatotomy was created over the prescribed vein. A micropuncture set was used to access the targeted vein and serial dilatation was performed to accept the prescribed length Mustafa catheter. A subcutaneous tunnel was created in a retrograde fashion the Mustafa cathet er was pulled through the tunnel. The catheter was flushed and assembled and locked with heparin. T he catheter was sutured in place. Conscious sedation was performed with the prescribed dosages and duration as above. The patient tole rated the procedure well and there were no complications. EKG and oximetry remained stable throughou t the procedure. The patient was sent to post anesthesia recovery in stable condition. CONCLUSION: Uncomplicated PermaCath placement as above. Hong Huffman MD on November 26, 2016 at 15:39 Board Certified Radiologist. This report was verified electronically.
[2016-11-26] MEDS: ACETAMINOPHEN/HYDROcodone 325 MG/5 MG TAB PO PRN (22:17)
[2016-11-27] VITALS (8 sets, daily range): BP systolic 114–166; BP diastolic 69–91; PULSE 77–107; RESP 17–18; TEMP 97.7–99.7; O2SAT 94–97
[2016-11-27] MEDS: ACETAMINOPHEN/HYDROcodone 325 MG/5 MG TAB PO PRN ×3 (03:22→17:56)
[2016-11-27] MEDS: CHLORHEXIDINE GLUCONATE 2 % 1 PACK (2 CLOTHS) TOP SCH ×2 (04:00→21:05)
[2016-11-27] MEDS: CLINDAMYCIN 150 MG CAP PO SCH ×2 (05:20→11:26)
[2016-11-27] MEDS: MYCOPHENOLATE MOFETIL 500 MG TAB PO SCH ×2 (05:20→17:55)
[2016-11-27 08:20] LABS: POTASSIUM 5.1 MEQ/L (3.5-5.1)
[2016-11-27] MEDS: SODIUM CHLORIDE 0.9% FLUSH 5 ML FLUSH FLUSH SCH ×2 (09:00→20:00)
[2016-11-27] MEDS: SEVELAMER CARBONATE 800 MG TAB PO SCH ×3 (09:08→17:55)
[2016-11-27] MEDS: predniSONE 20 MG TAB PO SCH (09:09)
[2016-11-27] MEDS: ONDANSETRON HCL 4 MG/2 ML VIAL IVP PRN (09:17)
--- NOTE | 2016-11-27 09:28 | HHI.GIFU ---
Subjective Remarks Resting in bed. He reports that he had hemodialysis yesterday. No nausea or vomiting or abdominal pain. Does state that he has dark stools at times. ( Estela Rondon) Objective Vitals I&O Vital Signs Date Time Temp Pulse Resp B/P Pulse Ox O2 Delivery O2 Flow Rate FiO2 11/27/16 08:28 97.7 84 18 114/73 94 11/27/16 04:45 98.0 80 18 119/70 95 11/27/16 00:00 98.5 82 17 115/69 94 11/26/16 20:45 98.0 91 17 117/67 94 11/26/16 19:00 89 11/26/16 17:44 96.8 86 18 127/68 97 11/26/16 16:30 89 16 122/66 93 11/26/16 16:00 86 15 114/62 93 11/26/16 15:55 86 16 114/62 93 11/26/16 15:45 83 16 110/57 93 11/26/16 15:30 97.8 92 16 121/57 93 11/26/16 14:02 21 11/26/16 14:00 66 11/26/16 13:00 68 11/26/16 12:48 98.0 70 18 105/60 97 11/26/16 12:46 70 I/O 11/26/16 11/26/16 11/26/16 11/27/16 11/27/16 11/27/16 07:00 15:00 23:00 07:00 15:00 23:00 Intake Total 640 ml 600 ml 500 ml Output Total 3500 ml 0 ml Balance 640 ml -3500 ml 600 ml 500 ml Intake Oral 640 ml 600 ml 500 ml Output Urine Total 0 ml Hemodialysis 3500 ml # Voids 6 1 # Bowel Movements 4 0 1 Laboratory Laboratory Tests Test 11/27/16 06:53 Sodium Level 136 Potassium Level 5.1 Chloride Level 95 Carbon Dioxide Level 27.0 Anion Gap 14 Blood Urea Nitrogen 96 Creatinine 13.22 Estimat Glomerular Filtration 4 Rate Random Glucose 80 Calcium Level 7.6 Phosphorus Level 9.0 Albumin 2.0 Date/Time Procedure Status Source Growth 11/25/16 00:35 Stool Occult Blood ([facility]) - Final Complete Stool Stool HEMOCCULT POSITIVE Imaging Last Impressions Catheter Placement X-Ray 11/26/16 0940 Signed Impressions: Service Date/Time: Saturday, November 26, 2016 14:33 - CONCLUSION: Uncomplicated PermaCath placement as above. Hong Huffman MD Renal Biopsy CT 11/22/16 0000 Signed Impressions: Service Date/Time: October 11:57 - CONCLUSION: Uncomplicated CT guided biopsy of the right lower pole kidney. Derek Monet MD Renal Ultrasound 11/19/16 0000 Signed Impressions: Service Date/Time: Saturday, November 19, 2016 09:26 - CONCLUSION: Normal examination. Garrett Lopes MD Radiology Special Procedure 11/19/16 0000 Signed Impressions: Service Date/Time: Saturday, November 19, 2016 00:00 - CONCLUSION: Hemostasis around the catheter insertion site was achieved. The patient tolerated the procedure well. Horace Zapata MD Abdomen/Pelvis CT 11/19/16 0000 Signed Impressions: Service Date/Time: Saturday, November 19, 2016 13:56 - CONCLUSION: Stable findings of cirrhosis and splenomegaly with varices. Otherwise negative. Garrett Lopes MD Chest X-Ray 11/18/16 1628 Signed Impressions: Service Date/Time: Friday, November 18, 2016 16:49 - CONCLUSION: Cardiomegaly. Derek Rider MD Physical Exam HEENT: Normocephalic; atraumatic; no jaundice. CHEST: Resp. shallow/even. Diminished CARDIAC: RRR ABDOMEN: Soft, nondistended, nontender; no hepatosplenomegaly; bowel sounds are present in all four quadrants. EXTREMITIES: Mild generalized edema. SKIN: Generalized pallor DIRECTOR FURNITURE: No focal deficits; lethargic and oriented times three. (Estela Rondon [facility]) Assessment and Plan Plan ASSESSMENT: - Anemia, Hemoccult (+) Stool. States that he does have some intermittent melena. HH 9.1/25.9. He will need evaluation with EGD/Colonoscopy, but was just started on HD and is very lethargic/shallow breathing. Will give him a few days to try to optimize him with HD. 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 Reports no ETOH x 13 months. Never had EGD/colonoscopy. LFTs and lipase normal. - Thrombocytopenia. 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 The disease appears to be active. Not much interstitial fibrosis or tubular atrophy. IgA nephropathy has been associated with Cirrhosis of the liver. Prognosis for renal recovery is poor." Cellcept, Prednisone. - Cellulitis of legs, Abx, blood cx negative per attending Plan: - Renal diet - PPI - Monitor HH - Transfuse as necessary - EGD/Colonoscopy once overall condition optimized - Supportive care - Patient seen and examined by Dr. Cristina and myself and this note is written on his behalf. (Estela Rondon) Physician Comments Patient seen and examined Agree with above Continue with current supportive care Monitor labs (Reji Cristina MD) Estela Rondon Nov 27, 2016 09:28 Reji Cristina MD Nov 27, 2016 23:05
--- NOTE | 2016-11-27 09:50 | HHI.NPPN ---
Subjective Complaints: Confused, Obesity General Problems: Edema, Hypertension Renal Failure: Acute Interval History Reporting dark stools. Decreased appetite. He was dialyzed yesterday. Remains anuric. (Helen Gaspar) Review of Systems General Constitutional: Fatigue (Helen Gaspar) Respiratory Lungs: SOB (Helen Gaspar) Cardiovascular Cardiac: Edema (Helen Gaspar) Gastrointestinal Gastrointestinal: Nausea & Vomiting (Helen Gaspar) Objective Data Data 11/26/16 11/27/16 19:00 07:00 Intake Total 1100 ml Output Total 3500 ml 0 ml Balance -3500 ml 1100 ml Intake Oral 1100 ml Output Urine Total 0 ml Hemodialysis 3500 ml # Voids 1 # Bowel Movements 1 Vital Signs Date Time Temp Pulse Resp B/P Pulse Ox O2 Delivery O2 Flow Rate FiO2 11/27/16 08:28 97.7 84 18 114/73 94 11/27/16 04:45 98.0 80 18 119/70 95 11/27/16 00:00 98.5 82 17 115/69 94 11/26/16 20:45 98.0 91 17 117/67 94 11/26/16 19:00 89 11/26/16 17:44 96.8 86 18 127/68 97 11/26/16 16:30 89 16 122/66 93 11/26/16 16:00 86 15 114/62 93 11/26/16 15:55 86 16 114/62 93 11/26/16 15:45 83 16 110/57 93 11/26/16 15:30 97.8 92 16 121/57 93 11/26/16 14:02 21 11/26/16 14:00 66 11/26/16 13:00 68 11/26/16 12:48 98.0 70 18 105/60 97 11/26/16 12:46 70 (Helen Gaspar) -: 11/25/16 0716 11/27/16 0653 Imaging Last 72 hours Impressions Catheter Placement X-Ray 11/26/16 0940 Signed Impressions: Service Date/Time: Saturday, November 26, 2016 14:33 - CONCLUSION: Uncomplicated PermaCath placement as above. Hong Huffman MD Tubes & Lines: Perma-Cath (Helen Gaspar) Physical Exam General Appearance: Well Developed, Well Nourished, No Acute Distress, Comfortable ( Helen Gaspar [employer]) Eyes Eye Exam: Pupils Equal (Helen Gaspar [employer]) Throat Throat Exam: Oral Mucosa [place] & Moist (Helen Gaspar [employer]) Pulmonary Resp Exam: Clear Bilaterally, Breath Sounds Equal, No Distress (Helen Gaspar [employer]) Cardiology CV Exam: Regular, Normal Sinus Rhythm, Good Perfusion (Helen Gaspar [employer]) Gastrointestinal/Abdomen GI Exam: Soft, Non-Tender, Bowel Sounds Present (Helen Gaspar [employer]) Genitourinary Remarks anuric (Helen Gaspar [employer]) Musculoskeletal MS Exam: Joints Intact, Normal Gait, Normal Tone (Helen Gaspar. COMPLIANCE [employer]) Integumentary Skin Exam: Clear, Warm, Dry, Intact (Helen Gaspar) Extremeties Extremities Exam: Pedal Pulses Palpable, Dependent Edema (Helen Gaspar. 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 . Not much interstitial fibrosis or tubular atrophy. The consensus of treatment for this condition is to treat it like RPGN from other causes: vasculitis, lupus or anti GBM disease. continue CellCept; continue prednisone x 30 days Prognosis for renal recovery is poor. discussed with pt IgA nephropathy has also been associated with Cirrhosis of the liver. 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 Platelet count is stable. No evidence of thrombotic microangiopathy. (3) Cirrhosis Plan: per findings on Ct scan long hx of heavy drinking GI following, to have endoscopy/colonoscopy Plan \ (Helen Gaspar) Plan patient was seen and examined. Patient thinks that his urine output is improving. Had PermCath placement. Dialysis tomorrow. (Fredo Mayer MD) Problem Qualifiers (1) Acute renal failure: Qualified Code: N17.0 - Acute renal failure with tubular necrosis (2) Cirrhosis: Helen Gaspar Nov 27, 2016 09:50 Fredo Mayer MD Nov 27, 2016 20:02
--- NOTE | 2016-11-27 11:22 | HHI.PR ---
Subjective Remarks resting comfortably with no distress. no new complaints. Objective Vitals Vital Signs Date Time Temp Pulse Resp B/P Pulse Ox O2 Delivery O2 Flow Rate FiO2 11/27/16 08:30 94 21 11/27/16 08:28 97.7 84 18 114/73 94 11/27/16 04:45 98.0 80 18 119/70 95 11/27/16 00:00 98.5 82 17 115/69 94 11/26/16 20:45 98.0 91 17 117/67 94 11/26/16 19:00 89 11/26/16 17:44 96.8 86 18 127/68 97 11/26/16 16:30 89 16 122/66 93 11/26/16 16:00 86 15 114/62 93 11/26/16 15:55 86 16 114/62 93 11/26/16 15:45 83 16 110/57 93 11/26/16 15:30 97.8 92 16 121/57 93 11/26/16 14:02 21 11/26/16 14:00 66 11/26/16 13:00 68 11/26/16 12:48 98.0 70 18 105/60 97 11/26/16 12:46 70 I/O 11/26/16 11/26/16 11/26/16 11/27/16 11/27/16 11/27/16 07:00 15:00 23:00 07:00 15:00 23:00 Intake Total 640 ml 600 ml 500 ml Output Total 3500 ml 0 ml Balance 640 ml -3500 ml 600 ml 500 ml Intake Oral 640 ml 600 ml 500 ml Output Urine Total 0 ml Hemodialysis 3500 ml # Voids 6 1 # Bowel Movements 4 0 1 Result Diagram: 11/25/16 0716 11/27/16 0653 Imaging Last Impressions Catheter Placement X-Ray 11/26/16 0940 Signed Impressions: Service Date/Time: Saturday, November 26, 2016 14:33 - CONCLUSION: Uncomplicated PermaCath placement as above. Hong Huffman MD Renal Biopsy CT 11/22/16 0000 Signed Impressions: Service Date/Time: October 11:57 - CONCLUSION: Uncomplicated CT guided biopsy of the right lower pole kidney. Derek Monet MD Renal Ultrasound 11/19/16 0000 Signed Impressions: Service Date/Time: Saturday, November 19, 2016 09:26 - CONCLUSION: Normal examination. Garrett Lopes MD Radiology Special Procedure 11/19/16 0000 Signed Impressions: Service Date/Time: Saturday, November 19, 2016 00:00 - CONCLUSION: Hemostasis around the catheter insertion site was achieved. The patient tolerated the procedure well. Horace Zapata MD Abdomen/Pelvis CT 11/19/16 0000 Signed Impressions: Service Date/Time: Saturday, November 19, 2016 13:56 - CONCLUSION: Stable findings of cirrhosis and splenomegaly with varices. Otherwise negative. Garrett Lopes MD Chest X-Ray 11/18/16 1628 Signed Impressions: Service Date/Time: Friday, November 18, 2016 16:49 - CONCLUSION: Cardiomegaly. Derek Rider MD Objective Remarks GENERAL: This is a well-nourished, well-developed patient, in no apparent distress. CARDIOVASCULAR: Regular rate and regular rhythm without murmurs, gallops, or rubs. RESPIRATORY: Clear to auscultation. Breath sounds equal bilaterally. No wheezes , rales, or rhonchi. GASTROINTESTINAL: Abdomen soft, non-tender, nondistended. Normal, active bowel sounds MUSCULOSKELETAL: Extremities without clubbing, cyanosis, or edema. NEURO: Alert & Oriented x4 to person, place, time, situation. Moves all ext x4 Procedures renal biopsy perma cath placement Medications and IVs Current Medications Piperacillin Sod/ Tazobactam Sod 100 ml @ 200 mls/hr ONCE STAT IV Last administered on 11/18/16 17:00; Start 11/18/16 at 16:28; Stop 11/18/16 at 16:57 ; Status DC Vancomycin HCl/ Sodium Chloride (Vancomycin Inj/ NS 500 ml Inj) 523 ml @ 257.5 mls/ hr ONCE STAT IV Last administered on 11/18/16 17:54; Start 11/18/16 at 16:28; Stop 11/18/16 at 18:29; Status DC Ondansetron HCl (Zofran Inj) 4 mg ONCE ONCE IV PUSH Last administered on 18:07; Start 11/18/16 at 18:15; Stop 11/18/16 at 18:16; Status DC Sodium Polystyrene Sulfonate 30 gm 30 gm ONCE ONCE PO Last administered on 19:29; Start 11/18/16 at 19:15; Stop 11/18/16 at 19:16; Status DC Pharmacy Profile Note 0 ml @ 0 mls/hr UNSCH OTHER ; Start 11/18/16 at 19:30; Stop 11/18/16 at 21:31; Status DC Piperacillin Sod/ Tazobactam Sod (Zosyn 2.25 Gm Premix) 50 ml @ 100 mls/hr Q6H IV Last administered on 11/24/16 11:23; Start 11/19/16 at 00:00; Stop at 11:47; Status DC IV Flush (NS Flush) 2 ml UNSCH PRN FLUSH FLUSH AFTER USING IV ACCESS; Start at 19:30 IV Flush (NS Flush) 2 ml BID FLUSH Last administered on 11/27/16 09:00; Start 11/18/16 at 21:00 Ondansetron HCl (Zofran Inj) 4 mg Q6H PRN IVP NAUSEA OR VOMITING Last administered on 11/27/16 09:17; Start 11/18/16 at 19:30 Bisacodyl (Dulcolax Supp) 10 mg DAILY PRN [place] CONSTIPATION; Start 11/18/16 at 19 :30 Acetaminophen (Tylenol) 650 mg Q6H PRN PO FEVER/PAIN SCALE 1 TO 2; Start at 19:30 Acetaminophen/ Hydrocodone Bitart ([place]very 5-325 Mg) 1 tab Q4H PRN PO PAIN SCALE 3 TO 5 Last administered on 11/27/16 09:09; Start 11/18/16 at 19:30 Morphine Sulfate (Morphine Inj) 2 mg Q3H PRN IV Pain 6-10 Last administered on 11/20/16 17:05; Start 11/18/16 at 19:30 Miscellaneous Information 1 [id number] XX Last administered on 11/18/16 19:30; Start 11/18/16 at 19:30 Chlorhexidine Gluconate (Chlorhexidine 2% Cloth) Taper DAILY@04 TOP Last administered on 11/22/16 04:00; Start 11/19/16 at 04:00; Stop 11/15/17 at 03:59 Chlorhexidine Gluconate (Chlorhexidine 2% Cloth) 3 pack UNSCH PRN TOP HYGIENIC CARE; Start 11/18/16 at 19:30 Lorazepam (Ativan Inj) 1 mg Q4H PRN IV PUSH AGITATION/ANXIETY Last administered on 11/26/16 23:33; Start 11/18/16 at 21:30 Diphenhydramine HCl 25 mg 25 mg Q4H PRN IV PUSH ITCHING/RASH Last administered on 11/18/16 23:59; Start 11/19/16 at 00:00 Methylprednisolone Sodium Succinate 500 mg/Dextrose 100 ml @ 200 mls/hr DAILY IV Last administered on 11/22/16 08:54; Start 11/19/16 at 09:15; Stop at 09:00; Status DC Sodium Chloride (NS 1000 ml Inj) 1,000 ml @ 0 mls/hr Q0M PRN IV For Prime & Rinse Back Last administered on 11/21/16 09:27; Start 11/19/16 at 09:14 Heparin Sodium (Porcine) 8000 units 8,000 units UNSCH PRN IVF WITH DIALYSIS; Start 11/19/16 at 09:15 Sodium Chloride 1,000 ml @ 200 mls/hr Q5H PRN IV WITH DIALYSIS Last administered on 11/21/16 09:28; Start 11/19/16 at 09:14 Sodium Chloride (NS 1000 ml Inj) 1,000 ml @ 0 mls/hr Q0M PRN IV WITH DIALYSIS; Start 11/19/16 at 09:14 Mannitol (Mannitol Inj) 12.5 gm UNSCH PRN IV WITH DIALYSIS; Start 11/19/16 at 09:15 Albumin Human (Albumin 25% Inj) 25 gm UNSCH PRN IV WITH DIALYSIS; Start at 09:15 IV Flush (NS Flush) 5 ml UNSCH PRN IVF WITH DIALYSIS Last administered on 09:29; Start 11/19/16 at 09:15 Heparin Sodium (Porcine) (Heparin Inj) UNSCH PRN .XX WITH DIALYSIS Last administered on 11/26/16 11:21; Start 11/19/16 at 09:15 Gentamicin Sulfate (Gentamicin (Dialysis) Inj) 20 mg UNSCH PRN IV WITH DIALYSIS Last administered on 11/26/16 11:21; Start 11/19/16 at 09:15 Ondansetron HCl (Zofran Inj) 4 mg UNSCH PRN IV WITH DIALYSIS Last administered on 11/25/16 08:22; Start 11/19/16 at 09:15 Acetaminophen (Tylenol) 650 mg UNSCH PRN PO for headach, pain, temp > 101F; Start 11/19/16 at 09:15 Diphenhydramine HCl (Benadryl) 25 mg UNSCH PRN PO for hives/itching/anaphylaxis ; Start 11/19/16 at 09:15 Nitroglycerin (Nitrostat Sl) 0.4 mg UNSCH PRN SL CHEST PAIN; Start 11/19/16 at 09:15 Clonidine (Catapres) 0.1 mg UNSCH PRN PO for BP > 180/100 X 2 readings; Start 11/19/16 at 09:15 Gelatin (Gelfoam 12 Mm/7 Mm Top) 1 foam UNSCH PRN TOP SEE LABEL COMMENTS Last administered on 11/19/16 17:18; Start 11/19/16 at 09:15 Heparin Sodium (Porcine) (*HEPARIN INJ Periprocedural ONLY) 10,000 units STK- MED ONCE .ROUTE Last administered on 11/19/16 13:43; Start 11/19/16 at 13:43; Stop 11/19/16 at 13:44; Status DC IV Flush (NS Flush) UNSCH PRN IVF SEE PROTOCOL; Start 11/19/16 at 14:15 Heparin Sodium (Porcine) (Heparin Inj) UNSCH PRN IVF SEE PROTOCOL; Start 11/19 at 14:15 Thrombin (Thrombin Top Soln) 5,000 units STK-MED ONCE .ROUTE Last administered on 11/19/16 16:58; Start 11/19/16 at 16:58; Stop 11/19/16 at 16:59; Status DC Gelatin (Gelfoam 12 Mm/7 Mm Top) 2 foam STK-MED ONCE EXT Last administered on 18:01; Start 11/19/16 at 18:01; Stop 11/19/16 at 18:02; Status DC Protamine Sulfate (Protamine Sulfate Inj) 50 mg STK-MED ONCE .ROUTE Last administered on 11/19/16 19:25; Start 11/19/16 at 19:22; Stop 11/19/16 at 19:23 ; Status DC Thrombin (Thrombin Top Soln) 5,000 units STK-MED ONCE .ROUTE Last administered on 11/19/16 19:50; Start 11/19/16 at 19:50; Stop 11/19/16 at 19:51; Status DC Sevelamer Carbonate (Renvela) 1,600 mg TIDAC PO Last administered on 11/24/16 08:38; Start 11/20/16 at 17:00; Stop 11/24/16 at 09:04; Status DC Promethazine HCl (Phenergan Inj) 25 mg ONCE ONCE IM Last administered on 23:23; Start 11/20/16 at 23:15; Stop 11/20/16 at 23:18; Status DC Prednisone (Deltasone) 60 mg DAILY PO Last administered on 11/27/16 09:09; Start 11/22/16 at 10:00 Lidocaine/ Epinephrine (Xylocaine-Epi 1%-1:100,000 Inj) 20 ml STK-MED ONCE .ROUTE Last administered on 11/22/16 10:48; Start 11/22/16 at 10:48; Stop at 10:49; Status DC Fentanyl Citrate (fentaNYL INJ) 250 mcg STK-MED ONCE .ROUTE Last administered on 11/22/16 11:41; Start 11/22/16 at 11:41; Stop 11/22/16 at 11:42; Status DC Midazolam HCl (Versed Inj) 5 mg STK-MED ONCE .ROUTE Last administered on 11:41; Start 11/22/16 at 11:41; Stop 11/22/16 at 11:42; Status DC Simethicone (Mylicon Chew) 80 mg ONCE ONCE CHEW Last administered on 23:00; Start 11/23/16 at 23:00; Stop 11/23/16 at 23:04; Status DC Sevelamer Carbonate (Renvela) 2,400 mg TIDAC PO Last administered on 11/27/16 09:08; Start 11/24/16 at 12:00 Mycophenolate Mofetil 500 mg 500 mg BID@ PO Last administered on 05:20; Start 11/24/16 at 18:00 Piperacillin Sod/ Tazobactam Sod (Zosyn 2.25 Gm Premix) 50 ml @ 100 mls/hr Q12H IV Last administered on 11/25/16 11:16; Start 11/25/16 at 00:00; Stop at 13:00; Status DC Al Hydrox/Mg Hydrox/Simethicone (Mag-Al Plus Susp Liq) 30 ml Q6H PRN PO HEARTBURN Last administered on 11/25/16 19:37; Start 11/24/16 at 14:00 Clindamycin HCl 300 mg 300 mg Q6HR PO Last administered on 11/27/16 05:20; Start 11/25/16 at 18:00; Stop 11/27/16 at 17:00 Cefazolin Sodium/ Dextrose 50 ml @ 100 mls/hr CABLE WAY OPERATOR IV Last administered on 11/26/16 13:50; Start 11/26/16 at 12:30; Stop 11/29/16 at 12:29 Vancomycin HCl/ Sodium Chloride (Vancomycin Inj/ NS 250 ml Inj) 250 ml @ 250 mls/hr CABLE WAY OPERATOR IV Last administered on 11/26/16 13:51; Start 11/26/16 at 12: 30; Stop 11/29/16 at 12:29 Midazolam HCl (Versed Inj) 5 mg STK-MED ONCE .ROUTE Last administered on 14:30; Start 11/26/16 at 14:16; Stop 11/26/16 at 14:17; Status DC Fentanyl Citrate (fentaNYL INJ) 250 mcg STK-MED ONCE .ROUTE Last administered on 11/26/16 14:30; Start 11/26/16 at 14:16; Stop 11/26/16 at 14:17; Status DC Thrombin (Thrombin Top Soln) 5,000 units STK-MED ONCE .ROUTE Last administered on 11/26/16 15:00; Start 11/26/16 at 14:16; Stop 11/26/16 at 14:17; Status DC Heparin Sodium (Porcine) (*HEPARIN INJ Periprocedural ONLY) 10,000 units STK- MED ONCE .ROUTE Last administered on 11/26/16 14:59; Start 11/26/16 at 14:25; Stop 11/26/16 at 14:26; Status DC Lidocaine/ Epinephrine (Xylocaine-Epi 1%-1:100,000 Inj) 20 ml STK-MED ONCE .ROUTE Last administered on 11/26/16t 14:55; Start 11/26/16 at 14:25; Stop at 14:26; Status DC IV Flush (NS Flush) UNSCH PRN IVF SEE PROTOCOL; Start 11/26/16 at 15:15 Heparin Sodium (Porcine) (Heparin Inj) UNSCH PRN IVF SEE PROTOCOL; Start 11/26 at 15:15 Pantoprazole Sodium (Protonix) 40 mg DAILY PO ; Start 11/27/16 at 09:30 A/P Assessment and Plan A/P - Cellulitis of left leg switched to po antibiotic to finish the course of treatment.DVT ruled out with doppler. - Acute renal failure / glomerulonephritis Nephrology consulted and following. s/p permacath placement. on HD as per nephrology. 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 has a poor diagnosis. The disease appears to be active. Not much interstitial fibrosis or tubular atrophy. on prednisone and Cellcept per nephrology -Thrombocytopenia will monitor. - Cirrhosis- likely due to alcohol- GI evaluated. - Anemia Likely due to liver disease, renal disease, hypersplenism.positive stool for blood-however no active bleeding- GI following- needs endoscopy- likely outpatient. - H/O ETOH abuse Reinforced on the importance to remain sober. DVT prophylaxis: SCDs, no chemotherapy prophylaxis given thrombocytopenia Sachi Medeiros MD Nov 27, 2016 11:22
[2016-11-27] MEDS: PANTOPRAZOLE SOD 40 MG DELAYED RELEASE TAB PO SCH (11:26)
[2016-11-27] MEDS ORDERED: LORazepam 1 MG TAB PO ONE (21:15)
[2016-11-27] MEDS: LORazepam 2 MG/ML VIAL IV PUSH PRN (22:25)
[2016-11-28] VITALS (7 sets, daily range): BP systolic 117–155; BP diastolic 60–88; PULSE 70–97; RESP 18–20; TEMP 95.6–98.8; O2SAT 94–100
[2016-11-28] MEDS: ACETAMINOPHEN/HYDROcodone 325 MG/5 MG TAB PO PRN ×3 (02:35→23:40)
[2016-11-28] MEDS: MYCOPHENOLATE MOFETIL 500 MG TAB PO SCH ×2 (06:45→17:55)
[2016-11-28] MEDS: SEVELAMER CARBONATE 800 MG TAB PO SCH ×3 (08:00→17:55)
[2016-11-28] MEDS: PANTOPRAZOLE SOD 40 MG DELAYED RELEASE TAB PO SCH (08:07)
[2016-11-28] MEDS: SODIUM CHLORIDE 0.9% FLUSH 5 ML FLUSH FLUSH SCH ×2 (08:07→20:39)
[2016-11-28] MEDS: predniSONE 20 MG TAB PO SCH (08:07)
--- NOTE | 2016-11-28 09:27 | HHI.NPPN ---
Subjective Complaints: Confused, Obesity General Problems: Edema, Hypertension Renal Failure: Acute Interval History Seen during dialysis. Still anuric. No acute changes. (Helen Gaspar) Review of Systems General Constitutional: Fatigue (Helen Gaspar) Cardiovascular Cardiac: Edema (Helen Gaspar) Objective Data Data 11/27/16 11/28/16 19:00 07:00 Intake Total 480 ml 480 ml Balance 480 ml 480 ml Intake Oral 480 ml 480 ml # Voids 3 2 # Bowel Movements 4 Vital Signs Date Time Temp Pulse Resp B/P Pulse Ox O2 Delivery O2 Flow Rate FiO2 11/28/16 08:00 95.6 76 20 117/60 94 11/28/16 05:15 18 11/28/16 05:07 96.4 77 20 137/77 98 11/28/16 00:18 98.8 97 20 155/88 100 11/27/16 20:15 97.9 107 18 166/91 97 11/27/16 17:03 97.8 79 18 143/83 96 11/27/16 12:07 99.7 77 18 118/69 94 11/27/16 11:23 99.7 77 18 118/79 94 (Helen Gaspar) -: 11/25/16 0716 11/27/16 0653 Imaging Last 72 hours Impressions Catheter Placement X-Ray 11/26/16 0940 Signed Impressions: Service Date/Time: Saturday, November 26, 2016 14:33 - CONCLUSION: Uncomplicated PermaCath placement as above. Hong Huffman MD Tubes & Lines: Perma-Cath (Helen Gaspar) Physical Exam General Appearance: Well Developed, Well Nourished, No Acute Distress, Comfortable ( Helen Gaspar) Eyes Eye Exam: Pupils Equal (Helen Gaspar) Throat Throat Exam: Oral Mucosa [place] & Moist (Helen Gaspar) Pulmonary Resp Exam: Clear Bilaterally, Breath Sounds Equal, No Distress (Helen Gaspar) Cardiology CV Exam: Regular, Normal Sinus Rhythm, Good Perfusion (Helen Gaspar) Gastrointestinal/Abdomen GI Exam: Soft, Non-Tender, Bowel Sounds Present (Helen Gaspar) Genitourinary Remarks anuric (Helen Gaspar) Musculoskeletal MS Exam: Joints Intact, Normal Gait, Normal Tone (Helen Gaspar) Integumentary Skin Exam: Clear, Warm, Dry, Intact (Helen Gaspar) Extremeties Extremities Exam: Pedal Pulses Palpable, Dependent Edema (Helen Gaspar) Neurologic Neuro Exam: Alert, Awake, Oriented, Speech Clear, Moving All Extremities ( Helen Gaspar) Psychiatric Psych Exam: Appropriate Responses (Helen Gaspar) Assessment/Plan Discussed Condition With: Patient Assessment Summary: SAL/Acute Renal Failure, Fluid/Volume Overload, Proteinuria Problem List: (1) Acute renal failure Plan: 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 The disease appears to be active. Not much interstitial fibrosis or tubular atrophy. IgA nephropathy has also been associated with Cirrhosis of the liver. The consensus of treatment for this condition is to treat it like RPGN from other causes: vasculitis, lupus or anti GBM disease. 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 Pt aware. He has been placed on CellCept; continue prednisone x 30 days dialysis , seen during dialysis today on a 2K, 350 BFR, goal 4000 ml daily renal panel Permcath placed, monitor function anuric currently, monitor urine output, await recovery phase continue Renvela, high dose, to manage phosphorus, evaluate periodically (2) Thrombocytopenia Plan: Likely due to cirrhosis, alcohol induced bone marrow suppression and hypersplenism. Platelet count is stable, somewhat improved. No evidence of thrombotic microangiopathy. 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 The disease appears to be active. Not much interstitial fibrosis or tubular atrophy. IgA nephropathy has also been associated with Cirrhosis of the liver. The consensus of treatment for this condition is to treat it like RPGN from other causes: vasculitis, lupus or anti GBM disease. 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 Patient is aware. He has been placed on CellCept; continue prednisone 60 mg x 30 days, then taper down. dialysis --, seen during dialysis today on a 2K, 350 BFR, goal 4000 ml daily renal panel Permcath placed, monitor function anuric currently, monitor urine output, await recovery phase continue Renvela, high dose, to manage phosphorus, evaluate periodically (2) Thrombocytopenia Plan: Likely due to cirrhosis, alcohol induced bone marrow suppression and hypersplenism. Platelet count is stable, somewhat improved. No evidence of thrombotic microangiopathy. (3) Cirrhosis Plan: per findings on Ct scan long hx of heavy drinking GI following, to have endoscopy/colonoscopy Plan patient was seen and examined on dialysis. No signs of renal recovery. On High dose steroid and CellCept for IgA nephropathy with RPGN. (Fredo Mayer MD) Problem Qualifiers (1) Acute renal failure: Qualified Code: N17.0 - Acute renal failure with tubular necrosis (2) Cirrhosis: Helen Gaspar Nov 28, 2016 09:26 Fredo Mayer MD Nov 29, 2016 10:48
--- NOTE | 2016-11-28 10:06 | HHI.NPPN ---
Subjective Complaints: Confused, Obesity General Problems: Edema, Hypertension Renal Failure: Acute Review of Systems General Constitutional: Fatigue Cardiovascular Cardiac: Edema Objective Data Data 11/27/16 11/28/16 19:00 07:00 Intake Total 480 ml 480 ml Balance 480 ml 480 ml Intake Oral 480 ml 480 ml # Voids 3 2 # Bowel Movements 4 Vital Signs Date Time Temp Pulse Resp B/P Pulse Ox O2 Delivery O2 Flow Rate FiO2 11/28/16 08:00 95.6 76 20 117/60 94 11/28/16 05:15 18 11/28/16 05:07 96.4 77 20 137/77 98 11/28/16 00:18 98.8 97 20 155/88 100 11/27/16 20:15 97.9 107 18 166/91 97 11/27/16 17:03 97.8 79 18 143/83 96 11/27/16 12:07 99.7 77 18 118/69 94 11/27/16 11:23 99.7 77 18 118/79 94 -: 11/25/16 0716 11/27/16 0653 Tubes & Lines: Perma-Cath Physical Exam General Appearance: Well Developed, Well Nourished, No Acute Distress, Comfortable Eyes Eye Exam: Pupils Equal Throat Throat Exam: Oral Mucosa [place] & Moist Pulmonary Resp Exam: Clear Bilaterally, Breath Sounds Equal, No Distress Cardiology CV Exam: Regular, Normal Sinus Rhythm, Good Perfusion Gastrointestinal/Abdomen GI Exam: Soft, Non-Tender, Bowel Sounds Present Musculoskeletal MS Exam: Joints Intact, Normal Gait, Normal Tone Integumentary Skin Exam: Clear, Warm, Dry, Intact Extremeties Extremities Exam: Pedal Pulses Palpable, Dependent Edema Neurologic Neuro Exam: Alert, Awake, Oriented, Speech Clear, Moving All Extremities Psychiatric Psych Exam: Appropriate Responses Assessment/Plan Discussed Condition With: Patient Assessment Summary: SAL/Acute Renal Failure, Fluid/Volume Overload, Proteinuria Problem List: (1) Acute renal failure Plan: 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 The disease appears to be active. Not much interstitial fibrosis or tubular atrophy. IgA nephropathy has also been associated with Cirrhosis of the liver. The consensus of treatment for this condition is to treat it like RPGN from other causes: vasculitis, lupus or anti GBM disease. 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 Pt aware. He has been placed on CellCept; continue prednisone x 30 days dialysis M-W-F, seen during dialysis today on a 2K, 350 BFR, goal 4000 ml daily renal panel Permcath placed, monitor function anuric currently, monitor urine output, await recovery phase continue Renvela, high dose, to manage phosphorus, evaluate periodically (2) Thrombocytopenia Plan: Likely due to cirrhosis, alcohol induced bone marrow suppression and hypersplenism. Platelet count is stable, somewhat improved. No evidence of thrombotic microangiopathy. (3) Cirrhosis Plan: per findings on Ct scan long hx of heavy drinking GI following, to have endoscopy/colonoscopy Plan patient was seen and examined during dialysis. UF goal 4L, BFR 400 ml/min. Continue to monitor urine output and renal function. Problem Qualifiers (1) Acute renal failure: Qualified Code: N17.0 - Acute renal failure with tubular necrosis (2) Cirrhosis: Fredo Mayer MD Nov 28, 2016 10:05
--- NOTE | 2016-11-28 11:02 | HHI.PR ---
Subjective Remarks having his HD today. is comfortable with no distress. no new complaints. Objective Vitals Vital Signs Date Time Temp Pulse Resp B/P Pulse Ox O2 Delivery O2 Flow Rate FiO2 11/28/16 08:00 95.6 76 20 117/60 94 11/28/16 05:15 18 11/28/16 05:07 96.4 77 20 137/77 98 11/28/16 00:18 98.8 97 20 155/88 100 11/27/16 20:15 97.9 107 18 166/91 97 11/27/16 17:03 97.8 79 18 143/83 96 11/27/16 12:07 99.7 77 18 118/69 94 11/27/16 11:23 99.7 77 18 118/79 94 I/O 11/27/16 11/27/16 11/27/16 11/28/16 11/28/16 11/28/16 07:00 15:00 23:00 07:00 15:00 23:00 Intake Total 500 ml 480 ml 480 ml Balance 500 ml 480 ml 480 ml Intake Oral 500 ml 480 ml 480 ml # Voids 1 3 1 1 # Bowel Movements 1 3 1 Result Diagram: 11/25/16 0716 11/27/16 0653 Imaging Last Impressions Catheter Placement X-Ray 11/26/16 0940 Signed Impressions: Service Date/Time: Saturday, November 26, 2016 14:33 - CONCLUSION: Uncomplicated PermaCath placement as above. Hong Huffman MD Renal Biopsy CT 11/22/16 0000 Signed Impressions: Service Date/Time: October 11:57 - CONCLUSION: Uncomplicated CT guided biopsy of the right lower pole kidney. Derek Monet MD Renal Ultrasound 11/19/16 0000 Signed Impressions: Service Date/Time: Saturday, November 19, 2016 09:26 - CONCLUSION: Normal examination. Garrett Lopes MD Radiology Special Procedure 11/19/16 0000 Signed Impressions: Service Date/Time: Saturday, November 19, 2016 00:00 - CONCLUSION: Hemostasis around the catheter insertion site was achieved. The patient tolerated the procedure well. Horace Zapata MD Abdomen/Pelvis CT 11/19/16 0000 Signed Impressions: Service Date/Time: Saturday, November 19, 2016 13:56 - CONCLUSION: Stable findings of cirrhosis and splenomegaly with varices. Otherwise negative. Garrett Lopes MD Chest X-Ray 11/18/16 1858 Signed Impressions: Service Date/Time: Friday, November 18, 2016 16:49 - CONCLUSION: Cardiomegaly. Derek Rider MD Objective Remarks GENERAL: This is a well-nourished, well-developed patient, in no apparent distress. CARDIOVASCULAR: Regular rate and regular rhythm without murmurs, gallops, or rubs. RESPIRATORY: Clear to auscultation. Breath sounds equal bilaterally. No wheezes , rales, or rhonchi. GASTROINTESTINAL: Abdomen soft, non-tender, nondistended. Normal, active bowel sounds MUSCULOSKELETAL: Extremities without clubbing, cyanosis, or edema. NEURO: Alert & Oriented x4 to person, place, time, situation. Moves all ext x4 Procedures renal biopsy perma cath placement Medications and IVs Current Medications Piperacillin Sod/ Tazobactam Sod 100 ml @ 200 mls/hr ONCE STAT IV Last administered on 11/18/16 17:00; Start 11/18/16 at 16:28; Stop 11/18/16 at 16:57 ; Status DC Vancomycin HCl/ Sodium Chloride (Vancomycin Inj/ NS 500 ml Inj) 523 ml @ 257.5 mls/ hr ONCE STAT IV Last administered on 11/18/16 17:54; Start 11/18/16 at 16:28; Stop 11/18/16 at 18:29; Status DC Ondansetron HCl (Zofran Inj) 4 mg ONCE ONCE IV PUSH Last administered on 18:07; Start 11/18/16 at 18:15; Stop 11/18/16 at 18:16; Status DC Sodium Polystyrene Sulfonate 30 gm 30 gm ONCE ONCE PO Last administered on 19:29; Start 11/18/16 at 19:15; Stop 11/18/16 at 19:16; Status DC Pharmacy Profile Note 0 ml @ 0 mls/hr UNSCH OTHER ; Start 11/18/16 at 19:30; Stop 11/18/16 at 21:31; Status DC Piperacillin Sod/ Tazobactam Sod (Zosyn 2.25 Gm Premix) 50 ml @ 100 mls/hr Q6H IV Last administered on 11/24/16 11:23; Start 11/19/16 at 00:00; Stop at 11:47; Status DC IV Flush (NS Flush) 2 ml UNSCH PRN FLUSH FLUSH AFTER USING IV ACCESS; Start at 19:30 IV Flush (NS Flush) 2 ml BID FLUSH Last administered on 11/28/16 08:07; Start 11/18/16 at 21:00 Ondansetron HCl (Zofran Inj) 4 mg Q6H PRN IVP NAUSEA OR VOMITING Last administered on 11/27/16 09:17; Start 11/18/16 at 19:30 Bisacodyl (Dulcolax Supp) 10 mg DAILY PRN OK CONSTIPATION; Start 11/18/16 at 19 :30 Acetaminophen (Tylenol) 650 mg Q6H PRN PO FEVER/PAIN SCALE 1 TO 2; Start at 19:30 Acetaminophen/ Hydrocodone Bitart ([place] 5-325 Mg) 1 tab Q4H PRN PO PAIN SCALE 3 TO 5 Last administered on 11/28/16 02:35; Start 11/18/16 at 19:30 Morphine Sulfate (Morphine Inj) 2 mg Q3H PRN IV Pain 6-10 Last administered on 11/20/16 17:05; Start 11/18/16 at 19:30 Miscellaneous Information 1 [id number] XX Last administered on 11/18/16 19:30; Start 11/18/16 at 19:30 Chlorhexidine Gluconate (Chlorhexidine 2% Cloth) Taper DAILY@04 TOP Last administered on 11/22/16 04:00; Start 11/19/16 at 04:00; Stop 11/15/17 at 03:59 Chlorhexidine Gluconate (Chlorhexidine 2% Cloth) 3 pack UNSCH PRN TOP HYGIENIC CARE; Start 11/18/16 at 19:30 Lorazepam (Ativan Inj) 1 mg Q4H PRN IV PUSH AGITATION/ANXIETY Last administered on 11/27/16 22:25; Start 11/18/16 at 21:30 Diphenhydramine HCl 25 mg 25 mg Q4H PRN IV PUSH ITCHING/RASH Last administered on 11/18/16 23:59; Start 11/19/16 at 00:00 Methylprednisolone Sodium Succinate 500 mg/Dextrose 100 ml @ 200 mls/hr DAILY IV Last administered on 11/22/16 08:54; Start 11/19/16 at 09:15; Stop at 09:00; Status DC Sodium Chloride (NS 1000 ml Inj) 1,000 ml @ 0 mls/hr Q0M PRN IV For Prime & Rinse Back Last administered on 11/21/16 09:27; Start 11/19/16 at 09:14 Heparin Sodium (Porcine) 8000 units 8,000 units UNSCH PRN IVF WITH DIALYSIS; Start 11/19/16 at 09:15 Sodium Chloride 1,000 ml @ 200 mls/hr Q5H PRN IV WITH DIALYSIS Last administered on 11/21/16 09:28; Start 11/19/16 at 09:14 Sodium Chloride (NS 1000 ml Inj) 1,000 ml @ 0 mls/hr Q0M PRN IV WITH DIALYSIS; Start 11/19/16 at 09:14 Mannitol (Mannitol Inj) 12.5 gm UNSCH PRN IV WITH DIALYSIS; Start 11/19/16 at 09:15 Albumin Human (Albumin 25% Inj) 25 gm UNSCH PRN IV WITH DIALYSIS; Start at 09:15 IV Flush (NS Flush) 5 ml UNSCH PRN IVF WITH DIALYSIS Last administered on 09:29; Start 11/19/16 at 09:15 Heparin Sodium (Porcine) (Heparin Inj) UNSCH PRN .XX WITH DIALYSIS Last administered on 11/26/16 11:21; Start 11/19/16 at 09:15 Gentamicin Sulfate (Gentamicin (Dialysis) Inj) 20 mg UNSCH PRN IV WITH DIALYSIS Last administered on 11/26/16 11:21; Start 11/19/16 at 09:15 Ondansetron HCl (Zofran Inj) 4 mg UNSCH PRN IV WITH DIALYSIS Last administered on 11/25/16 08:22; Start 11/19/16 at 09:15 Acetaminophen (Tylenol) 650 mg UNSCH PRN PO for headach, pain, temp > 101F; Start 11/19/16 at 09:15 Diphenhydramine HCl (Benadryl) 25 mg UNSCH PRN PO for hives/itching/anaphylaxis ; Start 11/19/16 at 09:15 Nitroglycerin (Nitrostat Sl) 0.4 mg UNSCH PRN SL CHEST PAIN; Start 11/19/16 at 09:15 Clonidine (Catapres) 0.1 mg UNSCH PRN PO for BP > 180/100 X 2 readings; Start 11/19/16 at 09:15 Gelatin (Gelfoam 12 Mm/7 Mm Top) 1 foam UNSCH PRN TOP SEE LABEL COMMENTS Last administered on 11/19/16 17:18; Start 11/19/16 at 09:15 Heparin Sodium (Porcine) (*HEPARIN INJ Periprocedural ONLY) 10,000 units STK- MED ONCE .ROUTE Last administered on 11/19/16 13:43; Start 11/19/16 at 13:43; Stop 11/19/16 at 13:44; Status DC IV Flush (NS Flush) UNSCH PRN IVF SEE PROTOCOL; Start 11/19/16 at 14:15 Heparin Sodium (Porcine) (Heparin Inj) UNSCH PRN IVF SEE PROTOCOL; Start 11/19 at 14:15 Thrombin (Thrombin Top Soln) 5,000 units STK-MED ONCE .ROUTE Last administered on 11/19/16 16:58; Start 11/19/16 at 16:58; Stop 11/19/16 at 16:59; Status DC Gelatin (Gelfoam 12 Mm/7 Mm Top) 2 foam STK-MED ONCE EXT Last administered on 18:01; Start 11/19/16 at 18:01; Stop 11/19/16 at 18:02; Status DC Protamine Sulfate (Protamine Sulfate Inj) 50 mg STK-MED ONCE .ROUTE Last administered on 11/19/16 19:25; Start 11/19/16 at 19:22; Stop 11/19/16 at 19:23 ; Status DC Thrombin (Thrombin Top Soln) 5,000 units STK-MED ONCE .ROUTE Last administered on 11/19/16 19:50; Start 11/19/16 at 19:50; Stop 11/19/16 at 19:51; Status DC Sevelamer Carbonate (Renvela) 1,600 mg TIDAC PO Last administered on 11/24/16 08:38; Start 11/20/16 at 17:00; Stop 11/24/16 at 09:04; Status DC Promethazine HCl (Phenergan Inj) 25 mg ONCE ONCE IM Last administered on 23:23; Start 11/20/16 at 23:15; Stop 11/20/16 at 23:18; Status DC Prednisone (Deltasone) 60 mg DAILY PO Last administered on 11/28/16 08:07; Start 11/22/16 at 10:00 Lidocaine/ Epinephrine (Xylocaine-Epi 1%-1:100,000 Inj) 20 ml STK-MED ONCE .ROUTE Last administered on 11/22/16 10:48; Start 11/22/16 at 10:48; Stop at 10:49; Status DC Fentanyl Citrate (fentaNYL INJ) 250 mcg STK-MED ONCE .ROUTE Last administered on 11/22/16 11:41; Start 11/22/16 at 11:41; Stop 11/22/16 at 11:42; Status DC Midazolam HCl (Versed Inj) 5 mg STK-MED ONCE .ROUTE Last administered on 11:41; Start 11/22/16 at 11:41; Stop 11/22/16 at 11:42; Status DC Simethicone (Mylicon Chew) 80 mg ONCE ONCE CHEW Last administered on 23:00; Start 11/23/16 at 23:00; Stop 11/23/16 at 23:04; Status DC Sevelamer Carbonate (Renvela) 2,400 mg TIDAC PO Last administered on 11/27/16 17:55; Start 11/24/16 at 12:00 Mycophenolate Mofetil 500 mg 500 mg BID@06,18 PO Last administered on 11/28/16 06:45; Start 11/24/16 at 18:00 Piperacillin Sod/ Tazobactam Sod (Zosyn 2.25 Gm Premix) 50 ml @ 100 mls/hr Q12H IV Last administered on 11/25/16 11:16; Start 11/25/16 at 00:00; Stop at 13:00; Status DC Al Hydrox/Mg Hydrox/Simethicone (Mag-Al Plus Susp Liq) 30 ml Q6H PRN PO HEARTBURN Last administered on 11/25/16 19:37; Start 11/24/16 at 14:00 Clindamycin HCl 300 mg 300 mg Q6HR PO Last administered on 11/27/16 11:26; Start 11/25/16 at 18:00; Stop 11/27/16 at 17:00; Status DC Cefazolin Sodium/ Dextrose 50 ml @ 100 mls/hr [employer] IV Last administered on 11/26/16 13:50; Start 11/26/16 at 12:30; Stop 11/29/16 at 12:29 Vancomycin HCl/ Sodium Chloride (Vancomycin Inj/ NS 250 ml Inj) 250 ml @ 250 mls/hr [employer] IV Last administered on 11/26/16 13:51; Start 11/26/16 at 12: 30; Stop 11/29/16 at 12:29 Midazolam HCl (Versed Inj) 5 mg STK-MED ONCE .ROUTE Last administered on 14:30; Start 11/26/16 at 14:16; Stop 11/26/16 at 14:17; Status DC Fentanyl Citrate (fentaNYL INJ) 250 mcg STK-MED ONCE .ROUTE Last administered on 11/26/16 14:30; Start 11/26/16 at 14:16; Stop 11/26/16 at 14:17; Status DC Thrombin (Thrombin Top Soln) 5,000 units STK-MED ONCE .ROUTE Last administered on 11/26/16 15:00; Start 11/26/16 at 14:16; Stop 11/26/16 at 14:17; Status DC Heparin Sodium (Porcine) (*HEPARIN INJ Periprocedural ONLY) 10,000 units STK- MED ONCE .ROUTE Last administered on 11/26/16 14:59; Start 11/26/16 at 14:25; Stop 11/26/16 at 14:26; Status DC Lidocaine/ Epinephrine (Xylocaine-Epi 1%-1:100,000 Inj) 20 ml STK-MED ONCE .ROUTE Last administered on 11/26/16 14:55; Start 11/26/16 at 14:25; Stop at 14:26; Status DC IV Flush (NS Flush) UNSCH PRN IVF SEE PROTOCOL; Start 11/26/16 at 15:15 Heparin Sodium (Porcine) (Heparin Inj) UNSCH PRN IVF SEE PROTOCOL; Start 11/26 at 15:15 Pantoprazole Sodium (Protonix) 40 mg DAILY PO Last administered on 11/28/16t 08: 07; Start 11/27/16 at 09:30 Lorazepam (Ativan) 1 mg ONCE ONCE PO ; Start 11/27/16 at 21:15; Stop 11/27/16 at 21:16; Status DC A/P Assessment and Plan A/P - Cellulitis of left leg completed the course of treatment.DVT ruled out with doppler. - Acute renal failure / glomerulonephritis Nephrology consulted and following. s/p permacath placement. on HD as per nephrology. 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 has a poor diagnosis. The disease appears to be active. Not much interstitial fibrosis or tubular atrophy. on prednisone and Cellcept per nephrology -Thrombocytopenia will monitor. - Cirrhosis- likely due to alcohol- GI evaluated. - Anemia Likely due to liver disease, renal disease, hypersplenism.positive stool for blood-however no active bleeding- GI following- needs endoscopy- likely outpatient. - H/O ETOH abuse Reinforced on the importance to remain sober. DVT prophylaxis: SCDs, no chemotherapy prophylaxis given thrombocytopenia Sachi Medeiros MD Nov 28, 2016 11:02
[2016-11-28] MEDS: ALBUMIN HUMAN 25% 25 GM/100 ML BAGP IV PRN ×2 (11:37→11:38)
[2016-11-28] MEDS: HEPARIN SODIUM - IV 10,000 UNITS/10 ML VIAL PRN (11:38)
[2016-11-28] MEDS: GENTAMICIN SULFATE (DIALYSIS USE ONLY) 20 MG/2 ML VIAL IV PRN (11:38)
[2016-11-28 15:51] LABS: IGA SERUM 498 mg/dL (81-463); TISSUE TRANSGLUTAMINASE AB IGG ND U/mL (())
[2016-11-28] MEDS: CHLORHEXIDINE GLUCONATE 2 % 1 PACK (2 CLOTHS) TOP SCH (20:39)
[2016-11-28] MEDS: LORazepam 2 MG/ML VIAL IV PUSH PRN (23:39)
[2016-11-29] VITALS: BP 158/90; PULSE 80; RESP 26; TEMP 94; O2SAT 99
[2016-11-29 04:00] VITALS: BP 126/64; PULSE 73; RESP 20; TEMP 98.6; O2SAT 93
[2016-11-29] MEDS: ACETAMINOPHEN/HYDROcodone 325 MG/5 MG TAB PO PRN ×3 (04:24→22:16)
[2016-11-29] MEDS: LORazepam 2 MG/ML VIAL IV PUSH PRN ×2 (04:33→22:17)
[2016-11-29] MEDS: SODIUM CHLORIDE 0.9% FLUSH 5 ML FLUSH FLUSH PRN (04:35)
[2016-11-29] MEDS: MYCOPHENOLATE MOFETIL 500 MG TAB PO SCH ×2 (06:13→17:39)
[2016-11-29 07:53] LABS: BICARBONATE 28.4 MEQ/L (21.0-32.0); POTASSIUM 4.4 MEQ/L (3.5-5.1)
[2016-11-29 08:00] VITALS: BP 139/88; PULSE 71; RESP 20; TEMP 97.5; O2SAT 95
--- NOTE | 2016-11-29 09:53 | HHI.NPPN ---
Subjective Complaints: Confused, Obesity General Problems: Edema, Hypertension Renal Failure: Acute Interval History Pt is resting. Still anuric. Dialyzed yesterday. Non acute changes. (Helen Gaspar) Review of Systems General Constitutional: Fatigue (Helen Gaspar) Cardiovascular Cardiac: Edema (Helen Gaspar) Objective Data Data 11/28/16 11/29/16 19:00 07:00 Intake Total 480 ml Output Total 4000 ml Balance -3520 ml Intake Oral 480 ml Hemodialysis 4000 ml # Voids 2 # Bowel Movements 1 2 Vital Signs Date Time Temp Pulse Resp B/P Pulse Ox O2 Delivery O2 Flow Rate FiO2 11/29/16 08:00 97.5 71 20 139/88 95 11/29/16 06:42 18 11/29/16 04:00 98.6 73 20 126/64 93 11/29/16 00:00 94.0 80 26 158/90 99 11/28/16 20:00 98.7 75 18 153/88 96 11/28/16 18:15 21 11/28/16 16:00 96.9 82 20 140/79 97 11/28/16 14:16 70 (Helen Gaspar) -: 11/25/16 0716 11/29/16 0644 Tubes & Lines: Perma-Cath (Helen Gaspar) Physical Exam General Appearance: Well Developed, Well Nourished, No Acute Distress, Comfortable, Sleeping (Helen Gaspar) Eyes Eye Exam: Pupils Equal (Helen Gaspar) Throat Throat Exam: Oral Mucosa [place] & Moist (Helen Gaspar) Pulmonary Resp Exam: Clear Bilaterally, Breath Sounds Equal, No Distress (Helen Gaspar) Cardiology CV Exam: Regular, Normal Sinus Rhythm, Good Perfusion (Helen Gaspar) Gastrointestinal/Abdomen GI Exam: Soft, Non-Tender, Bowel Sounds Present (Helen Gaspar) Genitourinary Remarks anuric (Helen Gaspar) Musculoskeletal MS Exam: Joints Intact, Normal Gait, Normal Tone (Helen Gaspar) Integumentary Skin Exam: Clear, Warm, Dry, Intact (Helen Gaspar) Extremeties Extremities Exam: Pedal Pulses Palpable, Dependent Edema (Helen Gaspar) Neurologic Neuro Exam: Alert, Awake, Oriented, Speech Clear, Moving All Extremities ( Helen Gaspar) Psychiatric Psych Exam: Appropriate Responses (Helen Gaspar) Assessment/Plan Discussed Condition With: Patient Assessment Summary: SAL/Acute Renal Failure, Fluid/Volume Overload, Proteinuria Problem List: (1) Acute renal failure Plan: 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 The disease appears to be active. Not much interstitial fibrosis or tubular atrophy. IgA nephropathy has also been associated with Cirrhosis of the liver. The consensus of treatment for this condition is to treat it like RPGN from other causes: vasculitis, lupus or anti GBM disease. 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 Pt aware. He has been placed on CellCept; continue prednisone x 30 days dialysis , he had 4 liters UF yesterday daily renal panel Permcath placed, monitor function anuric currently, monitor urine output, await recovery phase continue Renvela, high dose, to manage phosphorus, elevated but improving avoid nephrotoxins, encouraged oral hydration/nutrition (2) Thrombocytopenia Plan: Likely due to cirrhosis, alcohol induced bone marrow suppression and hypersplenism. Platelet count is stable, somewhat improved. No evidence of thrombotic microangiopathy. 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 The disease appears to be active. Not much interstitial fibrosis or tubular atrophy. IgA nephropathy has also been associated with Cirrhosis of the liver. The consensus of treatment for this condition is to treat it like RPGN from other causes: vasculitis, lupus or anti GBM disease. 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 Patient is aware. He has been placed on CellCept; continue prednisone 60 mg po daily for 30 days and then start taper. dialysis , he had 4 liters UF yesterday daily renal panel Permcath placed, monitor function anuric currently, monitor urine output, await recovery phase continue Renvela, high dose, to manage phosphorus, elevated but improving avoid nephrotoxins, encouraged oral hydration/nutrition (2) Thrombocytopenia Plan: Likely due to cirrhosis, alcohol induced bone marrow suppression and hypersplenism. Platelet count is stable, somewhat improved. No evidence of thrombotic microangiopathy. (3) Cirrhosis Plan: per findings on Ct scan long hx of heavy drinking GI following Plan patient was seen and examined. Agree with above assessment and plan. Dialysis tomorrow. Monitor for signs of renal recovery, but currently no signs. 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 (Fredo Mayer MD) Problem Qualifiers (1) Acute renal failure: Qualified Code: N17.0 - Acute renal failure with tubular necrosis (2) Cirrhosis: Helen Gaspar Nov 29, 2016 09:53 Fredo Mayer MD Nov 29, 2016 11:12
[2016-11-29] MEDS: SEVELAMER CARBONATE 800 MG TAB PO SCH ×3 (10:49→17:39)
[2016-11-29] MEDS: predniSONE 20 MG TAB PO SCH (10:49)
[2016-11-29] MEDS: PANTOPRAZOLE SOD 40 MG DELAYED RELEASE TAB PO SCH (10:49)
--- NOTE | 2016-11-29 11:35 | HHI.PR ---
Subjective Remarks resting comfortably with no distress. no new complaints. Objective Vitals Vital Signs Date Time Temp Pulse Resp B/P Pulse Ox O2 Delivery O2 Flow Rate FiO2 11/29/16 08:00 97.5 71 20 139/88 95 11/29/16 06:42 18 11/29/16 04:00 98.6 73 20 126/64 93 11/29/16 00:00 94.0 80 26 158/90 99 11/28/16 20:00 98.7 75 18 153/88 96 11/28/16 18:15 21 11/28/16 16:00 96.9 82 20 140/79 97 11/28/16 14:16 70 I/O 11/28/16 11/28/16 11/28/16 11/29/16 11/29/16 11/29/16 07:00 15:00 23:00 07:00 15:00 23:00 Intake Total 480 ml Output Total 4000 ml Balance -3520 ml Intake Oral 480 ml Hemodialysis 4000 ml # Voids 1 2 # Bowel Movements 1 2 Result Diagram: 11/25/16 0716 11/29/16 0644 Imaging Last Impressions Catheter Placement X-Ray 11/26/16 0940 Signed Impressions: Service Date/Time: Saturday, November 26, 2016 14:33 - CONCLUSION: Uncomplicated PermaCath placement as above. Hong Huffman MD Renal Biopsy CT 11/22/16 0000 Signed Impressions: Service Date/Time: October 11:57 - CONCLUSION: Uncomplicated CT guided biopsy of the right lower pole kidney. Derek Monet MD Renal Ultrasound 11/19/16 0000 Signed Impressions: Service Date/Time: Saturday, November 19, 2016 09:26 - CONCLUSION: Normal examination. Garrett Lopes MD Radiology Special Procedure 11/19/16 0000 Signed Impressions: Service Date/Time: Saturday, November 19, 2016 00:00 - CONCLUSION: Hemostasis around the catheter insertion site was achieved. The patient tolerated the procedure well. Horace Zapata MD Abdomen/Pelvis CT 11/19/16 0000 Signed Impressions: Service Date/Time: Saturday, November 19, 2016 13:56 - CONCLUSION: Stable findings of cirrhosis and splenomegaly with varices. Otherwise negative. Garrett Lopes MD Chest X-Ray 11/18/16 5749 Signed Impressions: Service Date/Time: Friday, November 18, 2016 16:49 - CONCLUSION: Cardiomegaly. Derek Rider MD Objective Remarks GENERAL: This is a well-nourished, well-developed patient, in no apparent distress. CARDIOVASCULAR: Regular rate and regular rhythm without murmurs, gallops, or rubs. RESPIRATORY: Clear to auscultation. Breath sounds equal bilaterally. No wheezes , rales, or rhonchi. GASTROINTESTINAL: Abdomen soft, non-tender, nondistended. Normal, active bowel sounds MUSCULOSKELETAL: Extremities without clubbing, cyanosis, or edema. NEURO: Alert & Oriented x4 to person, place, time, situation. Moves all ext x4 Procedures renal biopsy perma cath placement Medications and IVs Current Medications Piperacillin Sod/ Tazobactam Sod 100 ml @ 200 mls/hr ONCE STAT IV Last administered on 11/18/16 17:00; Start 11/18/16 at 16:28; Stop 11/18/16 at 16:57 ; Status DC Vancomycin HCl/ Sodium Chloride (Vancomycin Inj/ NS 500 ml Inj) 523 ml @ 257.5 mls/ hr ONCE STAT IV Last administered on 11/18/16 17:54; Start 11/18/16 at 16:28; Stop 11/18/16 at 18:29; Status DC Ondansetron HCl (Zofran Inj) 4 mg ONCE ONCE IV PUSH Last administered on 18:07; Start 11/18/16 at 18:15; Stop 11/18/16 at 18:16; Status DC Sodium Polystyrene Sulfonate 30 gm 30 gm ONCE ONCE PO Last administered on 19:29; Start 11/18/16 at 19:15; Stop 11/18/16 at 19:16; Status DC Pharmacy Profile Note 0 ml @ 0 mls/hr UNSCH OTHER ; Start 11/18/16 at 19:30; Stop 11/18/16 at 21:31; Status DC Piperacillin Sod/ Tazobactam Sod (Zosyn 2.25 Gm Premix) 50 ml @ 100 mls/hr Q6H IV Last administered on 11/24/16 11:23; Start 11/19/16 at 00:00; Stop at 11:47; Status DC IV Flush (NS Flush) 2 ml UNSCH PRN FLUSH FLUSH AFTER USING IV ACCESS Last administered on 11/29/16 04:35; Start 11/18/16 at 19:30 IV Flush (NS Flush) 2 ml BID FLUSH Last administered on 11/28/16 20:39; Start 11/18/16 at 21:00 Ondansetron HCl (Zofran Inj) 4 mg Q6H PRN IVP NAUSEA OR VOMITING Last administered on 11/27/16 09:17; Start 11/18/16 at 19:30 Bisacodyl (Dulcolax Supp) 10 mg DAILY PRN RI CONSTIPATION; Start 11/18/16 at 19 :30 Acetaminophen (Tylenol) 650 mg Q6H PRN PO FEVER/PAIN SCALE 1 TO 2; Start at 19:30 Acetaminophen/ Hydrocodone Bitart ([place] 5-325 Mg) 1 tab Q4H PRN PO PAIN SCALE 3 TO 5 Last administered on 11/29/16 04:24; Start 11/18/16 at 19:30 Morphine Sulfate (Morphine Inj) 2 mg Q3H PRN IV Pain 6-10 Last administered on 11/20/16 17:05; Start 11/18/16 at 19:30 Miscellaneous Information 1 [id number] XX Last administered on 11/18/16 19:30; Start 11/18/16 at 19:30 Chlorhexidine Gluconate (Chlorhexidine 2% Cloth) Taper DAILY@04 TOP Last administered on 11/22/16 04:00; Start 11/19/16 at 04:00; Stop 11/15/17 at 03:59 Chlorhexidine Gluconate (Chlorhexidine 2% Cloth) 3 pack UNSCH PRN TOP HYGIENIC CARE; Start 11/18/16 at 19:30 Lorazepam (Ativan Inj) 1 mg Q4H PRN IV PUSH AGITATION/ANXIETY Last administered on 11/29/16 04:33; Start 11/18/16 at 21:30 Diphenhydramine HCl 25 mg 25 mg Q4H PRN IV PUSH ITCHING/RASH Last administered on 11/18/16 23:59; Start 11/19/16 at 00:00 Methylprednisolone Sodium Succinate 500 mg/Dextrose 100 ml @ 200 mls/hr DAILY IV Last administered on 11/22/16 08:54; Start 11/19/16 at 09:15; Stop at 09:00; Status DC Sodium Chloride (NS 1000 ml Inj) 1,000 ml @ 0 mls/hr Q0M PRN IV For Prime & Rinse Back Last administered on 11/21/16 09:27; Start 11/19/16 at 09:14 Heparin Sodium (Porcine) 8000 units 8,000 units UNSCH PRN IVF WITH DIALYSIS; Start 11/19/16 at 09:15 Sodium Chloride 1,000 ml @ 200 mls/hr Q5H PRN IV WITH DIALYSIS Last administered on 11/21/16 09:28; Start 11/19/16 at 09:14 Sodium Chloride (NS 1000 ml Inj) 1,000 ml @ 0 mls/hr Q0M PRN IV WITH DIALYSIS; Start 11/19/16 at 09:14 Mannitol (Mannitol Inj) 12.5 gm UNSCH PRN IV WITH DIALYSIS; Start 11/19/16 at 09:15 Albumin Human (Albumin 25% Inj) 25 gm UNSCH PRN IV WITH DIALYSIS Last administered on 11/28/16 11:38; Start 11/19/16 at 09:15 IV Flush (NS Flush) 5 ml UNSCH PRN IVF WITH DIALYSIS Last administered on 09:29; Start 11/19/16 at 09:15 Heparin Sodium (Porcine) (Heparin Inj) UNSCH PRN .XX WITH DIALYSIS Last administered on 11/28/16 11:38; Start 11/19/16 at 09:15 Gentamicin Sulfate (Gentamicin (Dialysis) Inj) 20 mg UNSCH PRN IV WITH DIALYSIS Last administered on 11/28/16 11:38; Start 11/19/16 at 09:15 Ondansetron HCl (Zofran Inj) 4 mg UNSCH PRN IV WITH DIALYSIS Last administered on 11/25/16 08:22; Start 11/19/16 at 09:15 Acetaminophen (Tylenol) 650 mg UNSCH PRN PO for headach, pain, temp > 101F; Start 11/19/16 at 09:15 Diphenhydramine HCl (Benadryl) 25 mg UNSCH PRN PO for hives/itching/anaphylaxis ; Start 11/19/16 at 09:15 Nitroglycerin (Nitrostat Sl) 0.4 mg UNSCH PRN SL CHEST PAIN; Start 11/19/16 at 09:15 Clonidine (Catapres) 0.1 mg UNSCH PRN PO for BP > 180/100 X 2 readings; Start 11/19/16 at 09:15 Gelatin (Gelfoam 12 Mm/7 Mm Top) 1 foam UNSCH PRN TOP SEE LABEL COMMENTS Last administered on 11/19/16 17:18; Start 11/19/16 at 09:15 Heparin Sodium (Porcine) (*HEPARIN INJ Periprocedural ONLY) 10,000 units STK- MED ONCE .ROUTE Last administered on 11/19/16 13:43; Start 11/19/16 at 13:43; Stop 11/19/16 at 13:44; Status DC IV Flush (NS Flush) UNSCH PRN IVF SEE PROTOCOL; Start 11/19/16 at 14:15 Heparin Sodium (Porcine) (Heparin Inj) UNSCH PRN IVF SEE PROTOCOL; Start 11/19 at 14:15 Thrombin (Thrombin Top Soln) 5,000 units STK-MED ONCE .ROUTE Last administered on 11/19/16 16:58; Start 11/19/16 at 16:58; Stop 11/19/16 at 16:59; Status DC Gelatin (Gelfoam 12 Mm/7 Mm Top) 2 foam STK-MED ONCE EXT Last administered on 18:01; Start 11/19/16 at 18:01; Stop 11/19/16 at 18:02; Status DC Protamine Sulfate (Protamine Sulfate Inj) 50 mg STK-MED ONCE .ROUTE Last administered on 11/19/16 19:25; Start 11/19/16 at 19:22; Stop 11/19/16 at 19:23 ; Status DC Thrombin (Thrombin Top Soln) 5,000 units STK-MED ONCE .ROUTE Last administered on 11/19/16 19:50; Start 11/19/16 at 19:50; Stop 11/19/16 at 19:51; Status DC Sevelamer Carbonate (Renvela) 1,600 mg TIDAC PO Last administered on 11/24/16 08:38; Start 11/20/16 at 17:00; Stop 11/24/16 at 09:04; Status DC Promethazine HCl (Phenergan Inj) 25 mg ONCE ONCE IM Last administered on 23:23; Start 11/20/16 at 23:15; Stop 11/20/16 at 23:18; Status DC Prednisone (Deltasone) 60 mg DAILY PO Last administered on 11/29/16 10:49; Start 11/22/16 at 10:00 Lidocaine/ Epinephrine (Xylocaine-Epi 1%-1:100,000 Inj) 20 ml STK-MED ONCE .ROUTE Last administered on 11/22/16 10:48; Start 11/22/16 at 10:48; Stop at 10:49; Status DC Fentanyl Citrate (fentaNYL INJ) 250 mcg STK-MED ONCE .ROUTE Last administered on 11/22/16 11:41; Start 11/22/16 at 11:41; Stop 11/22/16 at 11:42; Status DC Midazolam HCl (Versed Inj) 5 mg STK-MED ONCE .ROUTE Last administered on 11:41; Start 11/22/16 at 11:41; Stop 11/22/16 at 11:42; Status DC Simethicone (Mylicon Chew) 80 mg ONCE ONCE CHEW Last administered on 23:00; Start 11/23/16 at 23:00; Stop 11/23/16 at 23:04; Status DC Sevelamer Carbonate (Renvela) 2,400 mg TIDAC PO Last administered on 11/29/16 10:49; Start 11/24/16 at 12:00 Mycophenolate Mofetil 500 mg 500 mg BID@06,18 PO Last administered on 11/29/16 06:13; Start 11/24/16 at 18:00 Piperacillin Sod/ Tazobactam Sod (Zosyn 2.25 Gm Premix) 50 ml @ 100 mls/hr Q12H IV Last administered on 11/25/16 11:16; Start 11/25/16 at 00:00; Stop at 13:00; Status DC Al Hydrox/Mg Hydrox/Simethicone (Mag-Al Plus Susp Liq) 30 ml Q6H PRN PO HEARTBURN Last administered on 11/25/16 19:37; Start 11/24/16 at 14:00 Clindamycin HCl 300 mg 300 mg Q6HR PO Last administered on 11/27/16 11:26; Start 11/25/16 at 18:00; Stop 11/27/16 at 17:00; Status DC Cefazolin Sodium/ Dextrose 50 ml @ 100 mls/hr [employer] IN[employer] IV Last administered on 11/26/16 13:50; Start 11/26/16 at 12:30; Stop 11/29/16 at 12:29 Vancomycin HCl/ Sodium Chloride (Vancomycin Inj/ NS 250 ml Inj) 250 ml @ 250 mls/hr [employer] IN[employer]CTOR IV Last administered on 11/26/16 13:51; Start 11/26/16 at 12: 30; Stop 11/29/16 at 12:29 Midazolam HCl (Versed Inj) 5 mg STK-MED ONCE .ROUTE Last administered on 14:30; Start 11/26/16 at 14:16; Stop 11/26/16 at 14:17; Status DC Fentanyl Citrate (fentaNYL INJ) 250 mcg STK-MED ONCE .ROUTE Last administered on 11/26/16 14:30; Start 11/26/16 at 14:16; Stop 11/26/16 at 14:17; Status DC Thrombin (Thrombin Top Soln) 5,000 units STK-MED ONCE .ROUTE Last administered on 11/26/16 15:00; Start 11/26/16 at 14:16; Stop 11/26/16 at 14:17; Status DC Heparin Sodium (Porcine) (*HEPARIN INJ Periprocedural ONLY) 10,000 units STK- MED ONCE .ROUTE Last administered on 11/26/16 14:59; Start 11/26/16 at 14:25; Stop 11/26/16 at 14:26; Status DC Lidocaine/ Epinephrine (Xylocaine-Epi 1%-1:100,000 Inj) 20 ml STK-MED ONCE .ROUTE Last administered on 11/26/16 14:55; Start 11/26/16 at 14:25; Stop at 14:26; Status DC IV Flush (NS Flush) UNSCH PRN IVF SEE PROTOCOL; Start 11/26/16 at 15:15 Heparin Sodium (Porcine) (Heparin Inj) UNSCH PRN IVF SEE PROTOCOL; Start 11/26 at 15:15 Pantoprazole Sodium (Protonix) 40 mg DAILY PO Last administered on 11/29/16t 10: 49; Start 11/27/16 at 09:30 Lorazepam (Ativan) 1 mg ONCE ONCE PO ; Start 11/27/16 at 21:15; Stop 11/27/16 at 21:16; Status DC A/P Assessment and Plan A/P - Cellulitis of left leg completed the course of treatment.DVT ruled out with doppler. - Acute renal failure / glomerulonephritis Nephrology consulted and following. s/p permacath placement. on HD as per nephrology. 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 has a poor diagnosis. The disease appears to be active. Not much interstitial fibrosis or tubular atrophy. on prednisone and Cellcept per nephrology -Thrombocytopenia will monitor. - Cirrhosis- likely due to alcohol- GI evaluated. - Anemia Likely due to liver disease, renal disease, hypersplenism.positive stool for blood-however no active bleeding- GI following- needs endoscopy- likely outpatient. - H/O ETOH abuse Reinforced on the importance to remain sober. DVT prophylaxis: SCDs, no chemotherapy prophylaxis given thrombocytopenia Sachi Medeiros MD Nov 29, 2016 11:34
[2016-11-29 12:00] VITALS: BP 119/78; PULSE 76; RESP 20; TEMP 98.2; O2SAT 98
[2016-11-29 13:52] LABS: ENDOMYSIAL AB TITER ND (<1:5); TISSUE TRANSGLUTAMINASE AB LESS THAN 1 U/mL (())
[2016-11-29 16:00] VITALS: BP 130/80; PULSE 98; RESP 20; TEMP 97.7; O2SAT 97
[2016-11-29 20:00] VITALS: BP_SYST 144; BP_SYST 152; BP_DIAS 96; BP_DIAS 98; PULSE 70; PULSE 71; RESP 20; TEMP 97.5; TEMP 97.6; O2SAT 96
[2016-11-29] MEDS: ONDANSETRON HCL 4 MG/2 ML VIAL IV PRN (22:17)
[2016-11-29] MEDS: SODIUM CHLORIDE 0.9% FLUSH 5 ML FLUSH FLUSH SCH (22:23)
[2016-11-30] VITALS (8 sets, daily range): BP systolic 120–152; BP diastolic 62–98; PULSE 70–94; RESP 18–20; TEMP 96.9–98; O2SAT 94–99
[2016-11-30] MEDS: LORazepam 2 MG/ML VIAL IV PUSH PRN ×2 (02:48→22:48)
[2016-11-30] MEDS: CHLORHEXIDINE GLUCONATE 2 % 1 PACK (2 CLOTHS) TOP SCH (04:00)
[2016-11-30] MEDS: MYCOPHENOLATE MOFETIL 500 MG TAB PO SCH ×2 (06:50→17:31)
[2016-11-30 07:40] LABS: BICARBONATE 26.3 MEQ/L (21.0-32.0)
[2016-11-30] MEDS: SEVELAMER CARBONATE 800 MG TAB PO SCH ×3 (08:00→17:29)
[2016-11-30] MEDS: SODIUM CHLORIDE 0.9% FLUSH 5 ML FLUSH FLUSH SCH ×2 (09:00→22:47)
--- NOTE | 2016-11-30 09:05 | HHI.NPPN ---
Subjective Complaints: Confused, Obesity General Problems: Edema, Hypertension Renal Failure: Acute Interval History Seen during dialysis. No changes in condition. (Helen Gaspar) Review of Systems General Constitutional: Fatigue (Helen Gaspar) Cardiovascular Cardiac: Edema (Helen Gaspar) Objective Data Data 11/29/16 11/30/16 19:00 07:00 Intake Total 240 ml Balance 240 ml Intake Oral 240 ml # Voids 2 7 # Bowel Movements 2 2 Vital Signs Date Time Temp Pulse Resp B/P Pulse Ox O2 Delivery O2 Flow Rate FiO2 11/30/16 08:00 96.9 92 19 129/78 94 11/30/16 06:45 98.0 70 20 120/62 95 11/30/16 02:00 74 11/30/16 00:00 97.5 70 20 152/98 96 11/29/16 23:20 19 11/29/16 20:00 97.6 71 20 144/96 96 11/29/16 16:00 97.7 98 20 130/80 97 11/29/16 12:00 98.2 76 20 119/78 98 (Helen Gaspar) -: 11/30/16 0630 Tubes & Lines: Perma-Cath (Helen Gaspar) Physical Exam General Appearance: Well Developed, Well Nourished, No Acute Distress, Comfortable, Sleeping (Helen Gaspar) Eyes Eye Exam: Pupils Equal (Helen Gaspar) Throat Throat Exam: Oral Mucosa [place] & Moist (Helen Gaspar) Pulmonary Resp Exam: Clear Bilaterally, Breath Sounds Equal, No Distress (Helen Gaspar) Cardiology CV Exam: Regular, Normal Sinus Rhythm, Good Perfusion (Helen Gaspar) Gastrointestinal/Abdomen GI Exam: Soft, Non-Tender, Bowel Sounds Present, Positive Bowel Movement ( Helen Gaspar) Genitourinary Remarks anuric (Helen Gaspar) Musculoskeletal MS Exam: Joints Intact, Normal Gait, Normal Tone (Helen Gaspar) Integumentary Skin Exam: Clear, Warm, Dry, Intact (Helen Gaspar) Extremeties Extremities Exam: Pedal Pulses Palpable, Dependent Edema (Helen Gaspar) Neurologic Neuro Exam: Alert, Awake, Oriented, Speech Clear, Moving All Extremities ( Helen Gaspar) Psychiatric Psych Exam: Appropriate Responses (Helen Gaspar) Assessment/Plan Discussed Condition With: Patient Assessment Summary: SAL/Acute Renal Failure, Fluid/Volume Overload, Proteinuria Assessment Remarks hyperphosphatemia Problem List: (1) Acute renal failure Plan: 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 The disease appears to be active. Not much interstitial fibrosis or tubular atrophy. IgA nephropathy has also been associated with Cirrhosis of the liver. The consensus of treatment for this condition is to treat it like RPGN from other causes: vasculitis, lupus or anti GBM disease. 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 Patient is aware. He has been placed on CellCept; continue prednisone 60 mg po daily for 30 days and then start taper. dialysis , seen during dialysis today on a 2K, 400 BFR, goal 4L UF daily renal panel Permcath in place, monitor function anuric currently, monitor urine output, await recovery phase continue Renvela, high dose, to manage phosphorus, avoid nephrotoxins, encouraged oral hydration/nutrition (2) Thrombocytopenia Plan: Likely due to cirrhosis, alcohol induced bone marrow suppression and hypersplenism. Platelet count is stable, somewhat improved. No evidence of thrombotic microangiopathy. (3) Cirrhosis Plan: per findings on Ct scan long hx of heavy drinking GI following (Helen Gaspar) Plan patient was seen and examined. Agree with above. He has IgA nephropathy with RPGN, on Prednisone and CellCept. Received Solumedrol 500 mg x 3 doses initially. Watch for signs of renal recovery. Continue dialysis support. ( Fredo Mayer MD) Problem Qualifiers (1) Acute renal failure: Qualified Code: N17.0 - Acute renal failure with tubular necrosis (2) Cirrhosis: Helen Gaspar Nov 30, 2016 09:05 Fredo Mayer MD Nov 30, 2016 15:56
[2016-11-30] MEDS: GENTAMICIN SULFATE (DIALYSIS USE ONLY) 20 MG/2 ML VIAL IV PRN (11:36)
[2016-11-30] MEDS: HEPARIN SODIUM - IV 10,000 UNITS/10 ML VIAL PRN (11:36)
[2016-11-30] MEDS: predniSONE 20 MG TAB PO SCH (12:37)
[2016-11-30] MEDS: PANTOPRAZOLE SOD 40 MG DELAYED RELEASE TAB PO SCH (12:37)
[2016-11-30] MEDS: ACETAMINOPHEN/HYDROcodone 325 MG/5 MG TAB PO PRN ×2 (12:40→22:47)
--- NOTE | 2016-11-30 13:31 | HHI.PR ---
Subjective Remarks had his HD today. is comfortable with no new complaints. Objective Vitals Vital Signs Date Time Temp Pulse Resp B/P Pulse Ox O2 Delivery O2 Flow Rate FiO2 11/30/16 10:06 Nasal Cannula 11/30/16 08:00 96.9 92 19 129/78 94 11/30/16 06:45 98.0 70 20 120/62 95 11/30/16 02:00 74 11/30/16 00:00 97.5 70 20 152/98 96 11/29/16 23:20 19 11/29/16 20:00 97.6 71 20 144/96 96 11/29/16 16:00 97.7 98 20 130/80 97 I/O 11/29/16 11/29/16 11/29/16 11/30/16 11/30/16 11/30/16 07:00 15:00 23:00 07:00 15:00 23:00 Intake Total 240 ml Output Total 4000 ml Balance 240 ml -4000 ml Intake Oral 240 ml Hemodialysis 4000 ml # Voids 2 6 1 # Bowel Movements 2 2 0 Result Diagram: 11/30/16 0630 Imaging Last Impressions Catheter Placement X-Ray 11/26/16 0940 Signed Impressions: Service Date/Time: Saturday, November 26, 2016 14:33 - CONCLUSION: Uncomplicated PermaCath placement as above. Hong Huffman MD Renal Biopsy CT 11/22/16 0000 Signed Impressions: Service Date/Time: October 11:57 - CONCLUSION: Uncomplicated CT guided biopsy of the right lower pole kidney. Derek Monet MD Renal Ultrasound 11/19/16 0000 Signed Impressions: Service Date/Time: Saturday, November 19, 2016 09:26 - CONCLUSION: Normal examination. Garrett Lopes MD Radiology Special Procedure 11/19/16 0000 Signed Impressions: Service Date/Time: Saturday, November 19, 2016 00:00 - CONCLUSION: Hemostasis around the catheter insertion site was achieved. The patient tolerated the procedure well. Horace Zapata MD Abdomen/Pelvis CT 11/19/16 0000 Signed Impressions: Service Date/Time: Saturday, November 19, 2016 13:56 - CONCLUSION: Stable findings of cirrhosis and splenomegaly with varices. Otherwise negative. Garrett Lopes MD Chest X-Ray 11/18/16 1628 Signed Impressions: Service Date/Time: Friday, November 18, 2016 16:49 - CONCLUSION: Cardiomegaly. Derek Rider MD Objective Remarks GENERAL: This is a well-nourished, well-developed patient, in no apparent distress. CARDIOVASCULAR: Regular rate and regular rhythm without murmurs, gallops, or rubs. RESPIRATORY: Clear to auscultation. Breath sounds equal bilaterally. No wheezes , rales, or rhonchi. GASTROINTESTINAL: Abdomen soft, non-tender, nondistended. Normal, active bowel sounds MUSCULOSKELETAL: Extremities without clubbing, cyanosis, or edema. NEURO: Alert & Oriented x4 to person, place, time, situation. Moves all ext x4 Procedures renal biopsy perma cath placement Medications and IVs Current Medications Piperacillin Sod/ Tazobactam Sod 100 ml @ 200 mls/hr ONCE STAT IV Last administered on 11/18/16 17:00; Start 11/18/16 at 16:28; Stop 11/18/16 at 16:57 ; Status DC Vancomycin HCl/ Sodium Chloride (Vancomycin Inj/ NS 500 ml Inj) 523 ml @ 257.5 mls/ hr ONCE STAT IV Last administered on 11/18/16 17:54; Start 11/18/16 at 16:28; Stop 11/18/16 at 18:29; Status DC Ondansetron HCl (Zofran Inj) 4 mg ONCE ONCE IV PUSH Last administered on 18:07; Start 11/18/16 at 18:15; Stop 11/18/16 at 18:16; Status DC Sodium Polystyrene Sulfonate 30 gm 30 gm ONCE ONCE PO Last administered on 19:29; Start 11/18/16 at 19:15; Stop 11/18/16 at 19:16; Status DC Pharmacy Profile Note 0 ml @ 0 mls/hr UNSCH OTHER ; Start 11/18/16 at 19:30; Stop 11/18/16 at 21:31; Status DC Piperacillin Sod/ Tazobactam Sod (Zosyn 2.25 Gm Premix) 50 ml @ 100 mls/hr Q6H IV Last administered on 11/24/16 11:23; Start 11/19/16 at 00:00; Stop at 11:47; Status DC IV Flush (NS Flush) 2 ml UNSCH PRN FLUSH FLUSH AFTER USING IV ACCESS Last administered on 11/29/16 04:35; Start 11/18/16 at 19:30 IV Flush (NS Flush) 2 ml BID FLUSH Last administered on 11/30/16 09:00; Start 11/18/16 at 21:00 Ondansetron HCl (Zofran Inj) 4 mg Q6H PRN IVP NAUSEA OR VOMITING Last administered on 11/27/16 09:17; Start 11/18/16 at 19:30 Bisacodyl (Dulcolax Supp) 10 mg DAILY PRN [place] CONSTIPATION; Start 11/18/16 at 19 :30 Acetaminophen (Tylenol) 650 mg Q6H PRN PO FEVER/PAIN SCALE 1 TO 2; Start at 19:30 Acetaminophen/ Hydrocodone Bitart ([place] 5-325 Mg) 1 tab Q4H PRN PO PAIN SCALE 3 TO 5 Last administered on 11/30/16 12:40; Start 11/18/16 at 19:30 Morphine Sulfate (Morphine Inj) 2 mg Q3H PRN IV Pain 6-10 Last administered on 11/20/16 17:05; Start 11/18/16 at 19:30 Miscellaneous Information 1 Q361D XX Last administered on 11/18/16 19:30; Start 11/18/16 at 19:30 Chlorhexidine Gluconate (Chlorhexidine 2% Cloth) Taper DAILY@04 TOP Last administered on 11/22/16 04:00; Start 11/19/16 at 04:00; Stop 11/15/17 at 03:59 Chlorhexidine Gluconate (Chlorhexidine 2% Cloth) 3 pack UNSCH PRN TOP HYGIENIC CARE; Start 11/18/16 at 19:30 Lorazepam (Ativan Inj) 1 mg Q4H PRN IV PUSH AGITATION/ANXIETY Last administered on 11/30/16 02:48; Start 11/18/16 at 21:30 Diphenhydramine HCl 25 mg 25 mg Q4H PRN IV PUSH ITCHING/RASH Last administered on 11/18/16 23:59; Start 11/19/16 at 00:00 Methylprednisolone Sodium Succinate 500 mg/Dextrose 100 ml @ 200 mls/hr DAILY IV Last administered on 11/22/16 08:54; Start 11/19/16 at 09:15; Stop at 09:00; Status DC Sodium Chloride (NS 1000 ml Inj) 1,000 ml @ 0 mls/hr Q0M PRN IV For Prime & Rinse Back Last administered on 11/21/16 09:27; Start 11/19/16 at 09:14 Heparin Sodium (Porcine) 8000 units 8,000 units UNSCH PRN IVF WITH DIALYSIS; Start 11/19/16 at 09:15 Sodium Chloride 1,000 ml @ 200 mls/hr Q5H PRN IV WITH DIALYSIS Last administered on 11/21/16 09:28; Start 11/19/16 at 09:14 Sodium Chloride (NS 1000 ml Inj) 1,000 ml @ 0 mls/hr Q0M PRN IV WITH DIALYSIS; Start 11/19/16 at 09:14 Mannitol (Mannitol Inj) 12.5 gm UNSCH PRN IV WITH DIALYSIS; Start 11/19/16 at 09:15 Albumin Human (Albumin 25% Inj) 25 gm UNSCH PRN IV WITH DIALYSIS Last administered on 11/28/16 11:38; Start 11/19/16 at 09:15 IV Flush (NS Flush) 5 ml UNSCH PRN IVF WITH DIALYSIS Last administered on 09:29; Start 11/19/16 at 09:15 Heparin Sodium (Porcine) (Heparin Inj) UNSCH PRN .XX WITH DIALYSIS Last administered on 11/30/16 11:36; Start 11/19/16 at 09:15 Gentamicin Sulfate (Gentamicin (Dialysis) Inj) 20 mg UNSCH PRN IV WITH DIALYSIS Last administered on 11/30/16 11:36; Start 11/19/16 at 09:15 Ondansetron HCl (Zofran Inj) 4 mg UNSCH PRN IV WITH DIALYSIS Last administered on 11/29/16 22:17; Start 11/19/16 at 09:15 Acetaminophen (Tylenol) 650 mg UNSCH PRN PO for headach, pain, temp > 101F; Start 11/19/16 at 09:15 Diphenhydramine HCl (Benadryl) 25 mg UNSCH PRN PO for hives/itching/anaphylaxis ; Start 11/19/16 at 09:15 Nitroglycerin (Nitrostat Sl) 0.4 mg UNSCH PRN SL CHEST PAIN; Start 11/19/16 at 09:15 Clonidine (Catapres) 0.1 mg UNSCH PRN PO for BP > 180/100 X 2 readings; Start 11/19/16 at 09:15 Gelatin (Gelfoam 12 Mm/7 Mm Top) 1 foam UNSCH PRN TOP SEE LABEL COMMENTS Last administered on 11/19/16 17:18; Start 11/19/16 at 09:15 Heparin Sodium (Porcine) (*HEPARIN INJ Periprocedural ONLY) 10,000 units STK- MED ONCE .ROUTE Last administered on 11/19/16 13:43; Start 11/19/16 at 13:43; Stop 11/19/16 at 13:44; Status DC IV Flush (NS Flush) UNSCH PRN IVF SEE PROTOCOL; Start 11/19/16 at 14:15 Heparin Sodium (Porcine) (Heparin Inj) UNSCH PRN IVF SEE PROTOCOL; Start 11/19 at 14:15 Thrombin (Thrombin Top Soln) 5,000 units STK-MED ONCE .ROUTE Last administered on 11/19/16 16:58; Start 11/19/16 at 16:58; Stop 11/19/16 at 16:59; Status DC Gelatin (Gelfoam 12 Mm/7 Mm Top) 2 foam STK-MED ONCE EXT Last administered on 18:01; Start 11/19/16 at 18:01; Stop 11/19/16 at 18:02; Status DC Protamine Sulfate (Protamine Sulfate Inj) 50 mg STK-MED ONCE .ROUTE Last administered on 11/19/16 19:25; Start 11/19/16 at 19:22; Stop 11/19/16 at 19:23 ; Status DC Thrombin (Thrombin Top Soln) 5,000 units STK-MED ONCE .ROUTE Last administered on 11/19/16 19:50; Start 11/19/16 at 19:50; Stop 11/19/16 at 19:51; Status DC Sevelamer Carbonate (Renvela) 1,600 mg TIDAC PO Last administered on 11/24/16 08:38; Start 11/20/16 at 17:00; Stop 11/24/16 at 09:04; Status DC Promethazine HCl (Phenergan Inj) 25 mg ONCE ONCE IM Last administered on 23:23; Start 11/20/16 at 23:15; Stop 11/20/16 at 23:18; Status DC Prednisone (Deltasone) 60 mg DAILY PO Last administered on 11/30/16 12:37; Start 11/22/16 at 10:00 Lidocaine/ Epinephrine (Xylocaine-Epi 1%-1:100,000 Inj) 20 ml STK-MED ONCE .ROUTE Last administered on 11/22/16 10:48; Start 11/22/16 at 10:48; Stop at 10:49; Status DC Fentanyl Citrate (fentaNYL INJ) 250 mcg STK-MED ONCE .ROUTE Last administered on 11/22/16 11:41; Start 11/22/16 at 11:41; Stop 11/22/16 at 11:42; Status DC Midazolam HCl (Versed Inj) 5 mg STK-MED ONCE .ROUTE Last administered on 11:41; Start 11/22/16 at 11:41; Stop 11/22/16 at 11:42; Status DC Simethicone (Mylicon Chew) 80 mg ONCE ONCE CHEW Last administered on 23:00; Start 11/23/16 at 23:00; Stop 11/23/16 at 23:04; Status DC Sevelamer Carbonate (Renvela) 2,400 mg TIDAC PO Last administered on 11/30/16 12:00; Start 11/24/16 at 12:00 Mycophenolate Mofetil 500 mg 500 mg BID@06,18 PO Last administered on 11/30/16 06:50; Start 11/24/16 at 18:00 Piperacillin Sod/ Tazobactam Sod (Zosyn 2.25 Gm Premix) 50 ml @ 100 mls/hr Q12H IV Last administered on 11/25/16 11:16; Start 11/25/16 at 00:00; Stop at 13:00; Status DC Al Hydrox/Mg Hydrox/Simethicone (Mag-Al Plus Susp Liq) 30 ml Q6H PRN PO HEARTBURN Last administered on 11/25/16 19:37; Start 11/24/16 at 14:00 Clindamycin HCl 300 mg 300 mg Q6HR PO Last administered on 11/27/16 11:26; Start 11/25/16 at 18:00; Stop 11/27/16 at 17:00; Status DC Cefazolin Sodium/ Dextrose 50 ml @ 100 mls/hr UNDERCOVER COP IV Last administered on 11/26/16 13:50; Start 11/26/16 at 12:30; Stop 11/29/16 at 12:29; Status DC Vancomycin HCl/ Sodium Chloride (Vancomycin Inj/ NS 250 ml Inj) 250 ml @ 250 mls/hr UNDERCOVER COP IV Last administered on 11/26/16 13:51; Start 11/26/16 at 12: 30; Stop 11/29/16 at 12:29; Status DC Midazolam HCl (Versed Inj) 5 mg STK-MED ONCE .ROUTE Last administered on 14:30; Start 11/26/16 at 14:16; Stop 11/26/16 at 14:17; Status DC Fentanyl Citrate (fentaNYL INJ) 250 mcg STK-MED ONCE .ROUTE Last administered on 11/26/16 14:30; Start 11/26/16 at 14:16; Stop 11/26/16 at 14:17; Status DC Thrombin (Thrombin Top Soln) 5,000 units STK-MED ONCE .ROUTE Last administered on 11/26/16 15:00; Start 11/26/16 at 14:16; Stop 11/26/16 at 14:17; Status DC Heparin Sodium (Porcine) (*HEPARIN INJ Periprocedural ONLY) 10,000 units STK- MED ONCE .ROUTE Last administered on 11/26/16 14:59; Start 11/26/16 at 14:25; Stop 11/26/16 at 14:26; Status DC Lidocaine/ Epinephrine (Xylocaine-Epi 1%-1:100,000 Inj) 20 ml STK-MED ONCE .ROUTE Last administered on 11/26/16 14:55; Start 11/26/16 at 14:25; Stop at 14:26; Status DC IV Flush (NS Flush) UNSCH PRN IVF SEE PROTOCOL; Start 11/26/16 at 15:15 Heparin Sodium (Porcine) (Heparin Inj) UNSCH PRN IVF SEE PROTOCOL; Start 11/26 at 15:15 Pantoprazole Sodium (Protonix) 40 mg DAILY PO Last administered on 11/30/16t 12: 37; Start 11/27/16 at 09:30 Lorazepam (Ativan) 1 mg ONCE ONCE PO ; Start 11/27/16 at 21:15; Stop 11/27/16 at 21:16; Status DC A/P Assessment and Plan A/P - Cellulitis of left leg completed the course of treatment.DVT ruled out with doppler. - Acute renal failure / glomerulonephritis Nephrology consulted and following. s/p permacath placement. on HD as per nephrology. 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 has a poor diagnosis. The disease appears to be active. Not much interstitial fibrosis or tubular atrophy. on prednisone and Cellcept per nephrology -Thrombocytopenia will monitor. - Cirrhosis- likely due to alcohol- GI evaluated. - Anemia Likely due to liver disease, renal disease, hypersplenism.positive stool for blood-however no active bleeding- GI following- needs endoscopy- likely outpatient. - H/O ETOH abuse counselled on drinking cessation. DVT prophylaxis: SCDs, no chemotherapy prophylaxis given thrombocytopenia Sachi Medeiros MD Nov 30, 2016 13:31
[2016-11-30] MEDS: ONDANSETRON HCL 4 MG/2 ML VIAL IVP PRN (22:49)
[2016-12-01] VITALS (7 sets, daily range): BP systolic 106–151; BP diastolic 64–85; PULSE 72–97; RESP 18–20; TEMP 96.2–98; O2SAT 94–99
[2016-12-01] MEDS: CHLORHEXIDINE GLUCONATE 2 % 1 PACK (2 CLOTHS) TOP SCH (03:14)
[2016-12-01] MEDS: LORazepam 2 MG/ML VIAL IV PUSH PRN ×3 (03:15→23:24)
[2016-12-01] MEDS: ACETAMINOPHEN/HYDROcodone 325 MG/5 MG TAB PO PRN ×3 (06:25→23:24)
[2016-12-01] MEDS: SEVELAMER CARBONATE 800 MG TAB PO SCH ×3 (06:25→17:50)
[2016-12-01] MEDS: MYCOPHENOLATE MOFETIL 500 MG TAB PO SCH ×2 (06:26→17:49)
[2016-12-01] MEDS: SODIUM CHLORIDE 0.9% FLUSH 5 ML FLUSH FLUSH SCH ×2 (08:24→20:54)
[2016-12-01] MEDS: predniSONE 20 MG TAB PO SCH (08:24)
[2016-12-01] MEDS: PANTOPRAZOLE SOD 40 MG DELAYED RELEASE TAB PO SCH (08:24)
--- NOTE | 2016-12-01 11:36 | HHI.PR ---
Subjective Remarks resting comfortably with no distress. no new complaints. Objective Vitals Vital Signs Date Time Temp Pulse Resp B/P Pulse Ox O2 Delivery O2 Flow Rate FiO2 12/01/16 09:00 97.9 72 20 139/83 97 12/01/16 04:00 96.4 74 18 106/64 99 12/01/16 00:00 98.0 97 20 136/81 98 11/30/16 23:49 20 11/30/16 20:00 97.8 93 18 133/77 99 11/30/16 19:16 94 11/30/16 16:00 98.0 93 19 135/74 97 I/O 11/30/16 11/30/16 11/30/16 12/01/16 12/01/16 12/01/16 07:00 15:00 23:00 07:00 15:00 23:00 Intake Total 240 ml Output Total 4000 ml Balance -3760 ml Intake Oral 240 ml Hemodialysis 4000 ml # Voids 1 1 3 # Bowel Movements 0 1 Result Diagram: 11/30/16 0630 Imaging Last Impressions Catheter Placement X-Ray 11/26/16 0940 Signed Impressions: Service Date/Time: Saturday, November 26, 2016 14:33 - CONCLUSION: Uncomplicated PermaCath placement as above. Hong Huffman MD Renal Biopsy CT 11/22/16 0000 Signed Impressions: Service Date/Time: October 11:57 - CONCLUSION: Uncomplicated CT guided biopsy of the right lower pole kidney. Derek Monet MD Renal Ultrasound 11/19/16 0000 Signed Impressions: Service Date/Time: Saturday, November 19, 2016 09:26 - CONCLUSION: Normal examination. Garrett Lopes MD Radiology Special Procedure 11/19/16 0000 Signed Impressions: Service Date/Time: Saturday, November 19, 2016 00:00 - CONCLUSION: Hemostasis around the catheter insertion site was achieved. The patient tolerated the procedure well. Horace Zapata MD Abdomen/Pelvis CT 11/19/16 0000 Signed Impressions: Service Date/Time: Saturday, November 19, 2016 13:56 - CONCLUSION: Stable findings of cirrhosis and splenomegaly with varices. Otherwise negative. Garrett Lopes MD Chest X-Ray 11/18/16 1628 Signed Impressions: Service Date/Time: Friday, November 18, 2016 16:49 - CONCLUSION: Cardiomegaly. Derek Rider MD Objective Remarks GENERAL: This is a well-nourished, well-developed patient, in no apparent distress. CARDIOVASCULAR: Regular rate and regular rhythm without murmurs, gallops, or rubs. RESPIRATORY: Clear to auscultation. Breath sounds equal bilaterally. No wheezes , rales, or rhonchi. GASTROINTESTINAL: Abdomen soft, non-tender, nondistended. Normal, active bowel sounds MUSCULOSKELETAL: Extremities without clubbing, cyanosis, or edema. NEURO: Alert & Oriented x4 to person, place, time, situation. Moves all ext x4 Procedures renal biopsy perma cath placement Medications and IVs Current Medications Piperacillin Sod/ Tazobactam Sod 100 ml @ 200 mls/hr ONCE STAT IV Last administered on 11/18/16 17:00; Start 11/18/16 at 16:28; Stop 11/18/16 at 16:57 ; Status DC Vancomycin HCl/ Sodium Chloride (Vancomycin Inj/ NS 500 ml Inj) 523 ml @ 257.5 mls/ hr ONCE STAT IV Last administered on 11/18/16 17:54; Start 11/18/16 at 16:28; Stop 11/18/16 at 18:29; Status DC Ondansetron HCl (Zofran Inj) 4 mg ONCE ONCE IV PUSH Last administered on 18:07; Start 11/18/16 at 18:15; Stop 11/18/16 at 18:16; Status DC Sodium Polystyrene Sulfonate 30 gm 30 gm ONCE ONCE PO Last administered on 19:29; Start 11/18/16 at 19:15; Stop 11/18/16 at 19:16; Status DC Pharmacy Profile Note 0 ml @ 0 mls/hr UNSCH OTHER ; Start 11/18/16 at 19:30; Stop 11/18/16 at 21:31; Status DC Piperacillin Sod/ Tazobactam Sod (Zosyn 2.25 Gm Premix) 50 ml @ 100 mls/hr Q6H IV Last administered on 11/24/16 11:23; Start 11/19/16 at 00:00; Stop at 11:47; Status DC IV Flush (NS Flush) 2 ml UNSCH PRN FLUSH FLUSH AFTER USING IV ACCESS Last administered on 11/29/16 04:35; Start 11/18/16 at 19:30 IV Flush (NS Flush) 2 ml BID FLUSH Last administered on 12/01/16 08:24; Start 11/18/16 at 21:00 Ondansetron HCl (Zofran Inj) 4 mg Q6H PRN IVP NAUSEA OR VOMITING Last administered on 11/30/16 22:49; Start 11/18/16 at 19:30 Bisacodyl (Dulcolax Supp) 10 mg DAILY PRN [place] CONSTIPATION; Start 11/18/16 at 19 :30 Acetaminophen (Tylenol) 650 mg Q6H PRN PO FEVER/PAIN SCALE 1 TO 2; Start at 19:30 Acetaminophen/ Hydrocodone Bitart ([place] 5-325 Mg) 1 tab Q4H PRN PO PAIN SCALE 3 TO 5 Last administered on 12/01/16 06:25; Start 11/18/16 at 19:30 Morphine Sulfate (Morphine Inj) 2 mg Q3H PRN IV Pain 6-10 Last administered on 11/20/16 17:05; Start 11/18/16 at 19:30 Miscellaneous Information 1 Q361D XX Last administered on 11/18/16 19:30; Start 11/18/16 at 19:30 Chlorhexidine Gluconate (Chlorhexidine 2% Cloth) Taper DAILY@04 TOP Last administered on 11/22/16 04:00; Start 11/19/16 at 04:00; Stop 11/15/17 at 03:59 Chlorhexidine Gluconate (Chlorhexidine 2% Cloth) 3 pack UNSCH PRN TOP HYGIENIC CARE; Start 11/18/16 at 19:30 Lorazepam (Ativan Inj) 1 mg Q4H PRN IV PUSH AGITATION/ANXIETY Last administered on 12/01/16 08:24; Start 11/18/16 at 21:30 Diphenhydramine HCl 25 mg 25 mg Q4H PRN IV PUSH ITCHING/RASH Last administered on 11/18/16 23:59; Start 11/19/16 at 00:00 Methylprednisolone Sodium Succinate 500 mg/Dextrose 100 ml @ 200 mls/hr DAILY IV Last administered on 11/22/16 08:54; Start 11/19/16 at 09:15; Stop at 09:00; Status DC Sodium Chloride (NS 1000 ml Inj) 1,000 ml @ 0 mls/hr Q0M PRN IV For Prime & Rinse Back Last administered on 11/21/16 09:27; Start 11/19/16 at 09:14 Heparin Sodium (Porcine) 8000 units 8,000 units UNSCH PRN IVF WITH DIALYSIS; Start 11/19/16 at 09:15 Sodium Chloride 1,000 ml @ 200 mls/hr Q5H PRN IV WITH DIALYSIS Last administered on 11/21/16 09:28; Start 11/19/16 at 09:14 Sodium Chloride (NS 1000 ml Inj) 1,000 ml @ 0 mls/hr Q0M PRN IV WITH DIALYSIS; Start 11/19/16 at 09:14 Mannitol (Mannitol Inj) 12.5 gm UNSCH PRN IV WITH DIALYSIS; Start 11/19/16 at 09:15 Albumin Human (Albumin 25% Inj) 25 gm UNSCH PRN IV WITH DIALYSIS Last administered on 11/28/16 11:38; Start 11/19/16 at 09:15 IV Flush (NS Flush) 5 ml UNSCH PRN IVF WITH DIALYSIS Last administered on 09:29; Start 11/19/16 at 09:15 Heparin Sodium (Porcine) (Heparin Inj) UNSCH PRN .XX WITH DIALYSIS Last administered on 11/30/16 11:36; Start 11/19/16 at 09:15 Gentamicin Sulfate (Gentamicin (Dialysis) Inj) 20 mg UNSCH PRN IV WITH DIALYSIS Last administered on 11/30/16 11:36; Start 11/19/16 at 09:15 Ondansetron HCl (Zofran Inj) 4 mg UNSCH PRN IV WITH DIALYSIS Last administered on 11/29/16 22:17; Start 11/19/16 at 09:15 Acetaminophen (Tylenol) 650 mg UNSCH PRN PO for headach, pain, temp > 101F; Start 11/19/16 at 09:15 Diphenhydramine HCl (Benadryl) 25 mg UNSCH PRN PO for hives/itching/anaphylaxis ; Start 11/19/16 at 09:15 Nitroglycerin (Nitrostat Sl) 0.4 mg UNSCH PRN SL CHEST PAIN; Start 11/19/16 at 09:15 Clonidine (Catapres) 0.1 mg UNSCH PRN PO for BP > 180/100 X 2 readings; Start 11/19/16 at 09:15 Gelatin (Gelfoam 12 Mm/7 Mm Top) 1 foam UNSCH PRN TOP SEE LABEL COMMENTS Last administered on 11/19/16 17:18; Start 11/19/16 at 09:15 Heparin Sodium (Porcine) (*HEPARIN INJ Periprocedural ONLY) 10,000 units STK- MED ONCE .ROUTE Last administered on 11/19/16 13:43; Start 11/19/16 at 13:43; Stop 11/19/16 at 13:44; Status DC IV Flush (NS Flush) UNSCH PRN IVF SEE PROTOCOL; Start 11/19/16 at 14:15 Heparin Sodium (Porcine) (Heparin Inj) UNSCH PRN IVF SEE PROTOCOL; Start 11/19 at 14:15 Thrombin (Thrombin Top Soln) 5,000 units STK-MED ONCE .ROUTE Last administered on 11/19/16 16:58; Start 11/19/16 at 16:58; Stop 11/19/16 at 16:59; Status DC Gelatin (Gelfoam 12 Mm/7 Mm Top) 2 foam STK-MED ONCE EXT Last administered on 18:01; Start 11/19/16 at 18:01; Stop 11/19/16 at 18:02; Status DC Protamine Sulfate (Protamine Sulfate Inj) 50 mg STK-MED ONCE .ROUTE Last administered on 11/19/16 19:25; Start 11/19/16 at 19:22; Stop 11/19/16 at 19:23 ; Status DC Thrombin (Thrombin Top Soln) 5,000 units STK-MED ONCE .ROUTE Last administered on 11/19/16 19:50; Start 11/19/16 at 19:50; Stop 11/19/16 at 19:51; Status DC Sevelamer Carbonate (Renvela) 1,600 mg TIDAC PO Last administered on 11/24/16 08:38; Start 11/20/16 at 17:00; Stop 11/24/16 at 09:04; Status DC Promethazine HCl (Phenergan Inj) 25 mg ONCE ONCE IM Last administered on 23:23; Start 11/20/16 at 23:15; Stop 11/20/16 at 23:18; Status DC Prednisone (Deltasone) 60 mg DAILY PO Last administered on 12/01/16 08:24; Start 11/22/16 at 10:00 Lidocaine/ Epinephrine (Xylocaine-Epi 1%-1:100,000 Inj) 20 ml STK-MED ONCE .ROUTE Last administered on 11/22/16 10:48; Start 11/22/16 at 10:48; Stop at 10:49; Status DC Fentanyl Citrate (fentaNYL INJ) 250 mcg STK-MED ONCE .ROUTE Last administered on 11/22/16 11:41; Start 11/22/16 at 11:41; Stop 11/22/16 at 11:42; Status DC Midazolam HCl (Versed Inj) 5 mg STK-MED ONCE .ROUTE Last administered on 11:41; Start 11/22/16 at 11:41; Stop 11/22/16 at 11:42; Status DC Simethicone (Mylicon Chew) 80 mg ONCE ONCE CHEW Last administered on 23:00; Start 11/23/16 at 23:00; Stop 11/23/16 at 23:04; Status DC Sevelamer Carbonate (Renvela) 2,400 mg TIDAC PO Last administered on 12/01/16 06:25; Start 11/24/16 at 12:00 Mycophenolate Mofetil 500 mg 500 mg BID@06,18 PO Last administered on 12/01/16 06:26; Start 11/24/16 at 18:00 Piperacillin Sod/ Tazobactam Sod (Zosyn 2.25 Gm Premix) 50 ml @ 100 mls/hr Q12H IV Last administered on 11/25/16 11:16; Start 11/25/16 at 00:00; Stop at 13:00; Status DC Al Hydrox/Mg Hydrox/Simethicone (Mag-Al Plus Susp Liq) 30 ml Q6H PRN PO HEARTBURN Last administered on 11/25/16 19:37; Start 11/24/16 at 14:00 Clindamycin HCl 300 mg 300 mg Q6HR PO Last administered on 11/27/16 11:26; Start 11/25/16 at 18:00; Stop 11/27/16 at 17:00; Status DC Cefazolin Sodium/ Dextrose 50 ml @ 100 mls/hr DATA ENTRY MACHINE OPERATOR IV Last administered on 11/26/16 13:50; Start 11/26/16 at 12:30; Stop 11/29/16 at 12:29; Status DC Vancomycin HCl/ Sodium Chloride (Vancomycin Inj/ NS 250 ml Inj) 250 ml @ 250 mls/hr DATA ENTRY MACHINE OPERATOR IV Last administered on 11/26/16 13:51; Start 11/26/16 at 12: 30; Stop 11/29/16 at 12:29; Status DC Midazolam HCl (Versed Inj) 5 mg STK-MED ONCE .ROUTE Last administered on 14:30; Start 11/26/16 at 14:16; Stop 11/26/16 at 14:17; Status DC Fentanyl Citrate (fentaNYL INJ) 250 mcg STK-MED ONCE .ROUTE Last administered on 11/26/16 14:30; Start 11/26/16 at 14:16; Stop 11/26/16 at 14:17; Status DC Thrombin (Thrombin Top Soln) 5,000 units STK-MED ONCE .ROUTE Last administered on 11/26/16 15:00; Start 11/26/16 at 14:16; Stop 11/26/16 at 14:17; Status DC Heparin Sodium (Porcine) (*HEPARIN INJ Periprocedural ONLY) 10,000 units STK- MED ONCE .ROUTE Last administered on 11/26/16 14:59; Start 11/26/16 at 14:25; Stop 11/26/16 at 14:26; Status DC Lidocaine/ Epinephrine (Xylocaine-Epi 1%-1:100,000 Inj) 20 ml STK-MED ONCE .ROUTE Last administered on 11/26/16 14:55; Start 11/26/16 at 14:25; Stop at 14:26; Status DC IV Flush (NS Flush) UNSCH PRN IVF SEE PROTOCOL; Start 11/26/16 at 15:15 Heparin Sodium (Porcine) (Heparin Inj) UNSCH PRN IVF SEE PROTOCOL; Start 11/26 at 15:15 Pantoprazole Sodium (Protonix) 40 mg DAILY PO Last administered on 12/01/16t 08: 24; Start 11/27/16 at 09:30 Lorazepam (Ativan) 1 mg ONCE ONCE PO ; Start 11/27/16 at 21:15; Stop 11/27/16 at 21:16; Status DC A/P Assessment and Plan A/P - Cellulitis of left leg completed the course of treatment.DVT ruled out with doppler. 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 Nephrology consulted and following. s/p permacath placement. on HD as per nephrology. on prednisone and Cellcept per nephrology -Thrombocytopenia will monitor. - Cirrhosis- likely due to alcohol- GI evaluated. - Anemia Likely due to liver disease, renal disease, hypersplenism.positive stool for blood-however no active bleeding- GI following- needs endoscopy- likely outpatient. - H/O ETOH abuse counselled on drinking cessation. DVT prophylaxis: SCDs, no chemotherapy prophylaxis given thrombocytopenia Discharge Planning needs HD- case management dc planning in progress. Sachi Medeiros MD Dec 01, 2016 11:36
--- NOTE | 2016-12-01 17:29 | HHI.NPPN ---
Subjective Complaints: Confused, Obesity General Problems: Edema, Hypertension Renal Failure: Acute Additional Remarks No acute complaints, tolerated dialysis yesterday. Minimal UOP Review of Systems General Constitutional: Fatigue Cardiovascular Cardiac: Edema Objective Data Data 11/30/16 12/01/16 19:00 07:00 Intake Total 240 ml Output Total 4000 ml Balance -3760 ml Intake Oral 240 ml Hemodialysis 4000 ml # Voids 1 3 # Bowel Movements 1 Vital Signs Date Time Temp Pulse Resp B/P Pulse Ox O2 Delivery O2 Flow Rate FiO2 12/01/16 17:12 96.2 82 20 141/77 95 12/01/16 13:12 97.7 72 20 140/82 94 12/01/16 09:00 97.9 72 20 139/83 97 12/01/16 04:00 96.4 74 18 106/64 99 12/01/16 00:00 98.0 97 20 136/81 98 11/30/16 23:49 20 11/30/16 20:00 97.8 93 18 133/77 99 11/30/16 19:16 94 -: 11/30/16 0630 Tubes & Lines: Perma-Cath Physical Exam General Appearance: Well Developed, Well Nourished, No Acute Distress, Comfortable, Sleeping Eyes Eye Exam: Pupils Equal Throat Throat Exam: Oral Mucosa Plain View & Moist Pulmonary Resp Exam: Clear Bilaterally, Breath Sounds Equal, No Distress Cardiology CV Exam: Regular, Normal Sinus Rhythm, Good Perfusion Gastrointestinal/Abdomen GI Exam: Soft, Non-Tender, Bowel Sounds Present, Positive Bowel Movement Musculoskeletal MS Exam: Joints Intact, Normal Gait, Normal Tone Integumentary Skin Exam: Clear, Warm, Dry, Intact Extremeties Extremities Exam: Pedal Pulses Palpable, Dependent Edema Neurologic Neuro Exam: Alert, Awake, Oriented, Speech Clear, Moving All Extremities Psychiatric Psych Exam: Appropriate Responses Assessment/Plan Discussed Condition With: Patient Assessment Summary: SAL/Acute Renal Failure, Fluid/Volume Overload, Proteinuria Problem List: (1) Acute renal failure Plan: 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 The disease appears to be active. Not much interstitial fibrosis or tubular atrophy. IgA nephropathy has also been associated with Cirrhosis of the liver. The consensus of treatment for this condition is to treat it like RPGN from other causes: vasculitis, lupus or anti GBM disease. 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 Patient is aware. He has been placed on CellCept; continue prednisone 60 mg po daily for 30 days and then start taper. dialysis - Tolerated HD yesterday, plan next HD Saturday. daily renal panel Permcath in place, monitor function anuric currently, monitor urine output, await recovery phase continue Renvela, high dose, to manage phosphorus, avoid nephrotoxins, encouraged oral hydration/nutrition Continue to follow up next week for evaluation for outpatient dialysis placement. May consider for AV access - will order vein mapping for now, follow with Dr. Mayer Saturday. 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 Platelet count is stable, somewhat improved. No evidence of thrombotic microangiopathy. (3) Cirrhosis Plan: per findings on Ct scan long hx of heavy drinking GI following Problem Qualifiers (1) Acute renal failure: Qualified Code: N17.0 - Acute renal failure with tubular necrosis (2) Cirrhosis: Horace Adrian MD Dec 01, 2016 17:29
--- NOTE | 2016-12-01 20:03 | HHI.GIFU ---
Subjective Remarks Patient comfortable in bed no complaints thinks he is ready for endoscopy Objective Vitals I&O Vital Signs Date Time Temp Pulse Resp B/P Pulse Ox O2 Delivery O2 Flow Rate FiO2 12/01/16 17:12 96.2 82 20 141/77 95 12/01/16 13:12 97.7 72 20 140/82 94 12/01/16 09:00 97.9 72 20 139/83 97 12/01/16 04:00 96.4 74 18 106/64 99 12/01/16 00:00 98.0 97 20 136/81 98 11/30/16 23:49 20 I/O 11/30/16 11/30/16 11/30/16 12/01/16 12/01/16 12/01/16 07:00 15:00 23:00 07:00 15:00 23:00 Intake Total 240 ml Output Total 4000 ml Balance -3760 ml Intake Oral 240 ml Hemodialysis 4000 ml # Voids 1 1 3 # Bowel Movements 0 1 Laboratory Laboratory Tests Test 11/30/16 06:30 Sodium Level 137 MEQ/L Potassium Level 5.0 MEQ/L Chloride Level 97 MEQ/L Carbon Dioxide Level 26.3 MEQ/L Anion Gap 14 MEQ/L Blood Urea Nitrogen 78 MG/DL Creatinine 13.03 MG/DL Estimat Glomerular Filtration 4 ML/MIN Rate Random Glucose 105 MG/DL Calcium Level 8.0 MG/DL Phosphorus Level 8.0 MG/DL Albumin 2.4 GM/DL Imaging Last Impressions Catheter Placement X-Ray 11/26/16 0940 Signed Impressions: Service Date/Time: Saturday, November 26, 2016 14:33 - CONCLUSION: Uncomplicated PermaCath placement as above. Hong Huffman MD Renal Biopsy CT 11/22/16 0000 Signed Impressions: Service Date/Time: October 11:57 - CONCLUSION: Uncomplicated CT guided biopsy of the right lower pole kidney. Derek Monet MD Renal Ultrasound 11/19/16 0000 Signed Impressions: Service Date/Time: Saturday, November 19, 2016 09:26 - CONCLUSION: Normal examination. Garrett Lopes MD Radiology Special Procedure 11/19/16 0000 Signed Impressions: Service Date/Time: Saturday, November 19, 2016 00:00 - CONCLUSION: Hemostasis around the catheter insertion site was achieved. The patient tolerated the procedure well. Horace Zapata MD Abdomen/Pelvis CT 11/19/16 0000 Signed Impressions: Service Date/Time: Saturday, November 19, 2016 13:56 - CONCLUSION: Stable findings of cirrhosis and splenomegaly with varices. Otherwise negative. Garrett Lopes MD Chest X-Ray 11/18/16 1628 Signed Impressions: Service Date/Time: Friday, November 18, 2016 16:49 - CONCLUSION: Cardiomegaly. Derek Rider MD Physical Exam HEENT: Normocephalic; atraumatic; no jaundice. CHEST: Clear to auscultation CARDIAC: RRR ABDOMEN: Soft, nondistended, nontender; no hepatosplenomegaly; bowel sounds are present in all four quadrants. EXTREMITIES: Mild generalized edema. SKIN: Generalized pallor INTEGRITY ENGINEER: No focal deficits; alert and oriented times three. Assessment and Plan Plan ASSESSMENT: - Anemia, Hemoccult (+) Stool. States that he does have some intermittent melena. HH 9.1/25.9. He will need evaluation with EGD/Colonoscopy, but was just started on HD and is very lethargic/shallow breathing. Will give him a few days to try to optimize him with HD. 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 Reports no ETOH x 13 months. Never had EGD/colonoscopy. LFTs and lipase normal. - Thrombocytopenia. 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 The disease appears to be active. Not much interstitial fibrosis or tubular atrophy. IgA nephropathy has been associated with Cirrhosis of the liver. Prognosis for renal recovery is poor." Cellcept, Prednisone. - Cellulitis of legs, Abx, blood cx negative per attending Plan: - Renal diet - PPI - Monitor HH - Transfuse as necessary - EGD/Colonoscopy on Saturday - Supportive care Reji Cristina MD Dec 01, 2016 20:03
--- NOTE | 2016-12-01 22:08 | RADRPT ---
EXAM DATE/TIME: 12/01/2016 18:48 [facility] COMPARISON: No previous studies available for comparison. INDICATIONS : Thrombosis. MEDICAL HISTORY : Arthritis. Pneumonia. Diarrhea. History of cocaine use. Chronic alcohol abuse. SURGICAL HISTORY : Abdominal surgery. Right pink tendon repair. ENCOUNTER: Initial ACUITY: 1 day PAIN SCORE: 0/10 LOCATION: Bilateral arms. FINDINGS: RIGHT UPPER EXTREMITY: There is spontaneous flow documented in the brachial, basilic, cephalic, axillary, and subclavian vei ns. The vessels are compressible and augmentation response is documented. No filling defects are se en. The flow is phasic with respiration. Direction of flow in the jugular vein is caudal. LEFT UPPER EXTREMITY: There is spontaneous flow documented in the brachial, basilic, cephalic, axillary, and subclavian vei ns. The vessels are compressible and augmentation response is documented. No filling defects are se en. The flow is phasic with respiration. Direction of flow in the jugular vein is caudal. CONCLUSION: 1. No deep venous thrombosis identified. Limited evaluation of right subclavian vein due to Infuse-a- Port. Joseph Marti MD on December 01, 2016 at 22:06 Board Certified Radiologist. This report was verified electronically.
--- NOTE | 2016-12-01 22:08 | RADRPT ---
EXAM DATE/TIME: 12/01/2016 19:02 [facility] COMPARISON: No previous studies available for comparison. INDICATIONS : [place] vein size for AV fistula. MEDICAL HISTORY : Arthritis. Pneumonia. History of cocaine use. Diarrhea. SURGICAL HISTORY : Oral surgery. Orthopedic surgery to knees, ankles and right shoulder. Right pinky tendon repair. ENCOUNTER: Initial ACUITY: 1 day PAIN SCORE: 0/10 LOCATION: Bilateral arms. CEPHALIC: ORIGIN: Right 3 mm Left 3 mm MID-ARM: Right 1 mm Left 3 mm ELBOW: Right 3 mm Left 4 mm FOREARM: Right 4 mm Left 4 mm WRIST: Right 3 mm Left 3 mm BASILIC: ORIGIN: Right 5 mm Left 3 mm MID-ARM: Right 4 mm Left 4 mm ELBOW: Right 5 mm Left 3 mm ARTERIES: BRACHIAL: Right 7 mm Left 6 mm ULNAR: Right 3 mm Left 4 mm RADIAL: Right 4 mm Left 3 mm VEINS: RADIAL: Right 3 mm Left 2 mm ULNAR: Right 3 mm Left 3 mm FINDINGS: The venous system of the upper extremities are patent by color Doppler imaging. Measurements of the arm veins (in mm) are listed above. CONCLUSION: Normal examination. Joseph Marti MD on December 01, 2016 at 22:06 Board Certified Radiologist. This report was verified electronically.
[2016-12-01 23:58] LABS: MITOCHONDRIAL ABS LESS THAN 20.0 U (())
[2016-12-02] VITALS (8 sets, daily range): BP systolic 120–140; BP diastolic 69–85; PULSE 57–76; RESP 18–20; TEMP 96.6–97.8; O2SAT 92–99
[2016-12-02] MEDS: ACETAMINOPHEN/HYDROcodone 325 MG/5 MG TAB PO PRN ×3 (03:46→14:23)
[2016-12-02] MEDS: LORazepam 2 MG/ML VIAL IV PUSH PRN ×2 (03:47→08:25)
[2016-12-02] MEDS: ONDANSETRON HCL 4 MG/2 ML VIAL IVP PRN (03:48)
[2016-12-02] MEDS: CHLORHEXIDINE GLUCONATE 2 % 1 PACK (2 CLOTHS) TOP SCH (04:00)
[2016-12-02] MEDS: MYCOPHENOLATE MOFETIL 500 MG TAB PO SCH ×2 (06:34→17:13)
[2016-12-02] MEDS: SEVELAMER CARBONATE 800 MG TAB PO SCH ×4 (08:00→17:00)
[2016-12-02] MEDS: PANTOPRAZOLE SOD 40 MG DELAYED RELEASE TAB PO SCH (08:23)
[2016-12-02] MEDS: predniSONE 20 MG TAB PO SCH (08:24)
[2016-12-02] MEDS: SODIUM CHLORIDE 0.9% FLUSH 5 ML FLUSH FLUSH SCH ×2 (08:25→21:00)
[2016-12-02 09:39] LABS: HEMATOCRIT 24.7 % (39.0-51.0); MEAN CELL VOLUME 94.1 FL (80.0-100.0); MEAN CORPUSCULAR HEMOGLOBIN 33.3 PG (27.0-34.0); MEAN CORPUSCULAR HGB CONC 35.4 % (32.0-36.0); PLATELET COUNT 69 TH/MM3 (150-450); RED BLOOD COUNT 2.62 MIL/MM3 (4.50-5.90); RED CELL DISTRIBUTION WIDTH 14.1 % (11.6-17.2); WHITE BLOOD COUNT 10.5 TH/MM3 (4.0-11.0)
--- NOTE | 2016-12-02 09:51 | HHI.PR ---
Subjective Remarks in no acute distress. denies pain. d/w the RN and no acute issues over night. Objective Vitals Vital Signs Date Time Temp Pulse Resp B/P Pulse Ox O2 Delivery O2 Flow Rate FiO2 12/02/16 08:05 97.6 73 20 133/81 96 12/02/16 04:01 96.6 68 18 134/85 96 12/02/16 00:24 96.6 76 18 136/84 99 12/01/16 21:36 21 12/01/16 20:11 96.2 86 20 151/85 98 12/01/16 20:00 80 12/01/16 17:12 96.2 82 20 141/77 95 12/01/16 13:12 97.7 72 20 140/82 94 I/O 12/01/16 12/01/16 12/01/16 12/02/16 12/02/16 12/02/16 07:00 15:00 23:00 07:00 15:00 23:00 Intake Total 480 ml Balance 480 ml Intake Oral 480 ml # Voids 3 1 1 # Bowel Movements 1 Result Diagram: 11/30/16 0630 Imaging Last Impressions Upper Extremity Ultrasound 12/01/16 0000 Signed Impressions: Service Date/Time: Thursday, December 01, 2016 18:48 - CONCLUSION: 1. No deep venous thrombosis identified. Limited evaluation of right subclavian vein due to [id number]. Joseph Marti MD Catheter Placement X-Ray 11/26/16 0940 Signed Impressions: Service Date/Time: Saturday, November 26, 2016 14:33 - CONCLUSION: Uncomplicated PermaCath placement as above. Hong Huffman MD Renal Biopsy CT 11/22/16 0000 Signed Impressions: Service Date/Time: October 11:57 - CONCLUSION: Uncomplicated CT guided biopsy of the right lower pole kidney. Derek Monet MD Renal Ultrasound 11/19/16 0000 Signed Impressions: Service Date/Time: Saturday, November 19, 2016 09:26 - CONCLUSION: Normal examination. Garrett Lopes MD Radiology Special Procedure 11/19/16 0000 Signed Impressions: Service Date/Time: Saturday, November 19, 2016 00:00 - CONCLUSION: Hemostasis around the catheter insertion site was achieved. The patient tolerated the procedure well. Horace Zapata MD Abdomen/Pelvis CT 11/19/16 0000 Signed Impressions: Service Date/Time: Saturday, November 19, 2016 13:56 - CONCLUSION: Stable findings of cirrhosis and splenomegaly with varices. Otherwise negative. Garrett Lopes MD Chest X-Ray 11/18/16 1628 Signed Impressions: Service Date/Time: Friday, November 18, 2016 16:49 - CONCLUSION: Cardiomegaly. Derek Rider MD Objective Remarks GENERAL: This is a well-nourished, well-developed patient, in no apparent distress. CARDIOVASCULAR: Regular rate and regular rhythm without murmurs, gallops, or rubs. RESPIRATORY: Clear to auscultation. Breath sounds equal bilaterally. No wheezes , rales, or rhonchi. GASTROINTESTINAL: Abdomen soft, non-tender, nondistended. Normal, active bowel sounds MUSCULOSKELETAL: Extremities without clubbing, cyanosis, or edema. NEURO: Alert & Oriented x4 to person, place, time, situation. Moves all ext x4 Procedures renal biopsy perma cath placement Medications and IVs Current Medications Piperacillin Sod/ Tazobactam Sod 100 ml @ 200 mls/hr ONCE STAT IV Last administered on 11/18/16 17:00; Start 11/18/16 at 16:28; Stop 11/18/16 at 16:57 ; Status DC Vancomycin HCl/ Sodium Chloride (Vancomycin Inj/ NS 500 ml Inj) 523 ml @ 257.5 mls/ hr ONCE STAT IV Last administered on 11/18/16 17:54; Start 11/18/16 at 16:28; Stop 11/18/16 at 18:29; Status DC Ondansetron HCl (Zofran Inj) 4 mg ONCE ONCE IV PUSH Last administered on 18:07; Start 11/18/16 at 18:15; Stop 11/18/16 at 18:16; Status DC Sodium Polystyrene Sulfonate 30 gm 30 gm ONCE ONCE PO Last administered on 19:29; Start 11/18/16 at 19:15; Stop 11/18/16 at 19:16; Status DC Pharmacy Profile Note 0 ml @ 0 mls/hr UNSCH OTHER ; Start 11/18/16 at 19:30; Stop 11/18/16 at 21:31; Status DC Piperacillin Sod/ Tazobactam Sod (Zosyn 2.25 Gm Premix) 50 ml @ 100 mls/hr Q6H IV Last administered on 11/24/16 11:23; Start 11/19/16 at 00:00; Stop at 11:47; Status DC IV Flush (NS Flush) 2 ml UNSCH PRN FLUSH FLUSH AFTER USING IV ACCESS Last administered on 11/29/16 04:35; Start 11/18/16 at 19:30 IV Flush (NS Flush) 2 ml BID FLUSH Last administered on 12/02/16 08:25; Start 11/18/16 at 21:00 Ondansetron HCl (Zofran Inj) 4 mg Q6H PRN IVP NAUSEA OR VOMITING Last administered on 12/02/16 03:48; Start 11/18/16 at 19:30 Bisacodyl (Dulcolax Supp) 10 mg DAILY PRN [place] CONSTIPATION; Start 11/18/16 at 19 :30 Acetaminophen (Tylenol) 650 mg Q6H PRN PO FEVER/PAIN SCALE 1 TO 2; Start at 19:30 Acetaminophen/ Hydrocodone Bitart ([place] 5-325 Mg) 1 tab Q4H PRN PO PAIN SCALE 3 TO 5 Last administered on 12/02/16 08:24; Start 11/18/16 at 19:30 Morphine Sulfate (Morphine Inj) 2 mg Q3H PRN IV Pain 6-10 Last administered on 11/20/16 17:05; Start 11/18/16 at 19:30 Miscellaneous Information 1 [id number] XX Last administered on 11/18/16 19:30; Start 11/18/16 at 19:30 Chlorhexidine Gluconate (Chlorhexidine 2% Cloth) Taper DAILY@04 TOP Last administered on 11/22/16 04:00; Start 11/19/16 at 04:00; Stop 11/15/17 at 03:59 Chlorhexidine Gluconate (Chlorhexidine 2% Cloth) 3 pack UNSCH PRN TOP HYGIENIC CARE; Start 11/18/16 at 19:30 Lorazepam (Ativan Inj) 1 mg Q4H PRN IV PUSH AGITATION/ANXIETY Last administered on 12/02/16 08:25; Start 11/18/16 at 21:30 Diphenhydramine HCl 25 mg 25 mg Q4H PRN IV PUSH ITCHING/RASH Last administered on 11/18/16 23:59; Start 11/19/16 at 00:00 Methylprednisolone Sodium Succinate 500 mg/Dextrose 100 ml @ 200 mls/hr DAILY IV Last administered on 11/22/16 08:54; Start 11/19/16 at 09:15; Stop at 09:00; Status DC Sodium Chloride (NS 1000 ml Inj) 1,000 ml @ 0 mls/hr Q0M PRN IV For Prime & Rinse Back Last administered on 11/21/16 09:27; Start 11/19/16 at 09:14 Heparin Sodium (Porcine) 8000 units 8,000 units UNSCH PRN IVF WITH DIALYSIS; Start 11/19/16 at 09:15 Sodium Chloride 1,000 ml @ 200 mls/hr Q5H PRN IV WITH DIALYSIS Last administered on 11/21/16 09:28; Start 11/19/16 at 09:14 Sodium Chloride (NS 1000 ml Inj) 1,000 ml @ 0 mls/hr Q0M PRN IV WITH DIALYSIS; Start 11/19/16 at 09:14 Mannitol (Mannitol Inj) 12.5 gm UNSCH PRN IV WITH DIALYSIS; Start 11/19/16 at 09:15 Albumin Human (Albumin 25% Inj) 25 gm UNSCH PRN IV WITH DIALYSIS Last administered on 11/28/16 11:38; Start 11/19/16 at 09:15 IV Flush (NS Flush) 5 ml UNSCH PRN IVF WITH DIALYSIS Last administered on 09:29; Start 11/19/16 at 09:15 Heparin Sodium (Porcine) (Heparin Inj) UNSCH PRN .XX WITH DIALYSIS Last administered on 11/30/16 11:36; Start 11/19/16 at 09:15 Gentamicin Sulfate (Gentamicin (Dialysis) Inj) 20 mg UNSCH PRN IV WITH DIALYSIS Last administered on 11/30/16 11:36; Start 11/19/16 at 09:15 Ondansetron HCl (Zofran Inj) 4 mg UNSCH PRN IV WITH DIALYSIS Last administered on 11/29/16 22:17; Start 11/19/16 at 09:15 Acetaminophen (Tylenol) 650 mg UNSCH PRN PO for headach, pain, temp > 101F; Start 11/19/16 at 09:15 Diphenhydramine HCl (Benadryl) 25 mg UNSCH PRN PO for hives/itching/anaphylaxis ; Start 11/19/16 at 09:15 Nitroglycerin (Nitrostat Sl) 0.4 mg UNSCH PRN SL CHEST PAIN; Start 11/19/16 at 09:15 Clonidine (Catapres) 0.1 mg UNSCH PRN PO for BP > 180/100 X 2 readings; Start 11/19/16 at 09:15 Gelatin (Gelfoam 12 Mm/7 Mm Top) 1 foam UNSCH PRN TOP SEE LABEL COMMENTS Last administered on 11/19/16 17:18; Start 11/19/16 at 09:15 Heparin Sodium (Porcine) (*HEPARIN INJ Periprocedural ONLY) 10,000 units STK- MED ONCE .ROUTE Last administered on 11/19/16 13:43; Start 11/19/16 at 13:43; Stop 11/19/16 at 13:44; Status DC IV Flush (NS Flush) UNSCH PRN IVF SEE PROTOCOL; Start 11/19/16 at 14:15 Heparin Sodium (Porcine) (Heparin Inj) UNSCH PRN IVF SEE PROTOCOL; Start 11/19 at 14:15 Thrombin (Thrombin Top Soln) 5,000 units STK-MED ONCE .ROUTE Last administered on 11/19/16 16:58; Start 11/19/16 at 16:58; Stop 11/19/16 at 16:59; Status DC Gelatin (Gelfoam 12 Mm/7 Mm Top) 2 foam STK-MED ONCE EXT Last administered on 18:01; Start 11/19/16 at 18:01; Stop 11/19/16 at 18:02; Status DC Protamine Sulfate (Protamine Sulfate Inj) 50 mg STK-MED ONCE .ROUTE Last administered on 11/19/16 19:25; Start 11/19/16 at 19:22; Stop 11/19/16 at 19:23 ; Status DC Thrombin (Thrombin Top Soln) 5,000 units STK-MED ONCE .ROUTE Last administered on 11/19/16 19:50; Start 11/19/16 at 19:50; Stop 11/19/16 at 19:51; Status DC Sevelamer Carbonate (Renvela) 1,600 mg TIDAC PO Last administered on 11/24/16 08:38; Start 11/20/16 at 17:00; Stop 11/24/16 at 09:04; Status DC Promethazine HCl (Phenergan Inj) 25 mg ONCE ONCE IM Last administered on 23:23; Start 11/20/16 at 23:15; Stop 11/20/16 at 23:18; Status DC Prednisone (Deltasone) 60 mg DAILY PO Last administered on 12/02/16 08:24; Start 11/22/16 at 10:00 Lidocaine/ Epinephrine (Xylocaine-Epi 1%-1:100,000 Inj) 20 ml STK-MED ONCE .ROUTE Last administered on 11/22/16 10:48; Start 11/22/16 at 10:48; Stop at 10:49; Status DC Fentanyl Citrate (fentaNYL INJ) 250 mcg STK-MED ONCE .ROUTE Last administered on 11/22/16 11:41; Start 11/22/16 at 11:41; Stop 11/22/16 at 11:42; Status DC Midazolam HCl (Versed Inj) 5 mg STK-MED ONCE .ROUTE Last administered on 11:41; Start 11/22/16 at 11:41; Stop 11/22/16 at 11:42; Status DC Simethicone (Mylicon Chew) 80 mg ONCE ONCE CHEW Last administered on 23:00; Start 11/23/16 at 23:00; Stop 11/23/16 at 23:04; Status DC Sevelamer Carbonate (Renvela) 2,400 mg TIDAC PO Last administered on 12/02/16 08:23; Start 11/24/16 at 12:00 Mycophenolate Mofetil 500 mg 500 mg BID@06,18 PO Last administered on 12/02/16 06:34; Start 11/24/16 at 18:00 Piperacillin Sod/ Tazobactam Sod (Zosyn 2.25 Gm Premix) 50 ml @ 100 mls/hr Q12H IV Last administered on 11/25/16 11:16; Start 11/25/16 at 00:00; Stop at 13:00; Status DC Al Hydrox/Mg Hydrox/Simethicone (Mag-Al Plus Susp Liq) 30 ml Q6H PRN PO HEARTBURN Last administered on 11/25/16 19:37; Start 11/24/16 at 14:00 Clindamycin HCl 300 mg 300 mg Q6HR PO Last administered on 11/27/16 11:26; Start 11/25/16 at 18:00; Stop 11/27/16 at 17:00; Status DC Cefazolin Sodium/ Dextrose 50 ml @ 100 mls/hr WHOLESALER IV Last administered on 11/26/16 13:50; Start 11/26/16 at 12:30; Stop 11/29/16 at 12:29; Status DC Vancomycin HCl/ Sodium Chloride (Vancomycin Inj/ NS 250 ml Inj) 250 ml @ 250 mls/hr WHOLESALER IV Last administered on 11/26/16 13:51; Start 11/26/16 at 12: 30; Stop 11/29/16 at 12:29; Status DC Midazolam HCl (Versed Inj) 5 mg STK-MED ONCE .ROUTE Last administered on 14:30; Start 11/26/16 at 14:16; Stop 11/26/16 at 14:17; Status DC Fentanyl Citrate (fentaNYL INJ) 250 mcg STK-MED ONCE .ROUTE Last administered on 11/26/16 14:30; Start 11/26/16 at 14:16; Stop 11/26/16 at 14:17; Status DC Thrombin (Thrombin Top Soln) 5,000 units STK-MED ONCE .ROUTE Last administered on 11/26/16 15:00; Start 11/26/16 at 14:16; Stop 11/26/16 at 14:17; Status DC Heparin Sodium (Porcine) (*HEPARIN INJ Periprocedural ONLY) 10,000 units STK- MED ONCE .ROUTE Last administered on 11/26/16 14:59; Start 11/26/16 at 14:25; Stop 11/26/16 at 14:26; Status DC Lidocaine/ Epinephrine (Xylocaine-Epi 1%-1:100,000 Inj) 20 ml STK-MED ONCE .ROUTE Last administered on 1/30/17at 14:55; Start 11/26/16 at 14:25; Stop at 14:26; Status DC IV Flush (NS Flush) UNSCH PRN IVF SEE PROTOCOL; Start 11/26/16 at 15:15 Heparin Sodium (Porcine) (Heparin Inj) UNSCH PRN IVF SEE PROTOCOL; Start 11/26 at 15:15 Pantoprazole Sodium (Protonix) 40 mg DAILY PO Last administered on 12/02/16t 08: 23; Start 11/27/16 at 09:30 Lorazepam (Ativan) 1 mg ONCE ONCE PO ; Start 11/27/16 at 21:15; Stop 11/27/16 at 21:16; Status DC Polyethylene Glycol/ Electrolytes (Colyte Liq) 4,000 ml ONCE ONCE PO ; Start at 11:00; Stop 12/02/16 at 11:01 A/P Assessment and Plan A/P - Cellulitis of left leg completed the course of treatment.DVT ruled out with doppler. 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 Nephrology consulted and following. s/p permacath placement. on HD as per nephrology. on prednisone and Cellcept per nephrology -Thrombocytopenia will monitor. - Cirrhosis- likely due to alcohol- GI evaluated. - Anemia Likely due to liver disease, renal disease, hypersplenism.positive stool for blood-however no active bleeding- GI following- plan for EGD/ colonoscopy tomorrow- - H/O ETOH abuse counselled on drinking cessation. DVT prophylaxis: SCDs, no chemotherapy prophylaxis given thrombocytopenia Discharge Planning needs HD- case management dc planning in progress. Sachi Medeiros MD Dec 02, 2016 09:51
[2016-12-02 10:32] LABS: REVIEW FLAG AUTO DIFF
[2016-12-02] MEDS ORDERED: PEG (High)/E-LYTE SOLN 4000 ML BTL PO ONE (11:00)
--- NOTE | 2016-12-02 14:33 | HHI.NPPN ---
Subjective Complaints: Confused, Obesity General Problems: Edema, Hypertension Renal Failure: Acute Additional Remarks No acute complaints Review of Systems General Constitutional: Fatigue Cardiovascular Cardiac: Edema Objective Data Data 12/01/16 12/02/16 19:00 07:00 Intake Total 480 ml Balance 480 ml Intake Oral 480 ml # Voids 2 # Bowel Movements 1 Vital Signs Date Time Temp Pulse Resp B/P Pulse Ox O2 Delivery O2 Flow Rate FiO2 12/02/16 12:00 97.3 71 20 120/69 95 12/02/16 08:05 97.6 73 20 133/81 96 12/02/16 07:50 66 12/02/16 04:01 96.6 68 18 134/85 96 12/02/16 00:24 96.6 76 18 136/84 99 12/01/16 21:36 21 12/01/16 20:11 96.2 86 20 151/85 98 12/01/16 20:00 80 12/01/16 17:12 96.2 82 20 141/77 95 -: 12/02/16 0855 11/30/16 0630 Tubes & Lines: Perma-Cath Physical Exam General Appearance: Well Developed, Well Nourished, No Acute Distress, Comfortable, Sleeping Eyes Eye Exam: Pupils Equal Throat Throat Exam: Oral Mucosa [place] & Moist Pulmonary Resp Exam: Clear Bilaterally, Breath Sounds Equal, No Distress Cardiology CV Exam: Regular, Normal Sinus Rhythm, Good Perfusion Gastrointestinal/Abdomen GI Exam: Soft, Non-Tender, Bowel Sounds Present, Positive Bowel Movement Musculoskeletal MS Exam: Joints Intact, Normal Gait, Normal Tone Integumentary Skin Exam: Clear, Warm, Dry, Intact Extremeties Extremities Exam: Pedal Pulses Palpable, Dependent Edema Neurologic Neuro Exam: Alert, Awake, Oriented, Speech Clear, Moving All Extremities Psychiatric Psych Exam: Appropriate Responses Assessment/Plan Discussed Condition With: Patient Assessment Summary: SAL/Acute Renal Failure, Fluid/Volume Overload, Proteinuria Problem List: (1) Acute renal failure Plan: 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 The disease appears to be active. Not much interstitial fibrosis or tubular atrophy. IgA nephropathy has also been associated with Cirrhosis of the liver. The consensus of treatment for this condition is to treat it like RPGN from other causes: vasculitis, lupus or anti GBM disease. 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 Patient is aware. He has been placed on CellCept; continue prednisone 60 mg po daily for 30 days and then start taper. dialysis -- - Tolerated HD Saturday, plan next HD Saturday. daily renal panel Permcath in place, monitor function anuric currently, monitor urine output, await recovery phase continue Renvela, high dose, to manage phosphorus, avoid nephrotoxins, encouraged oral hydration/nutrition Continue to follow up next week for evaluation for outpatient dialysis placement. Vein mapping done. If expected prolonged time on HD, will need to consult vascular surgery for AV access this week. Of note platelets are slightly low (69) Planned EGD/colonoscopy Saturday. 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 Platelet count is stable at 69, somewhat improved. No evidence of thrombotic microangiopathy. (3) Cirrhosis Plan: per findings on Ct scan long hx of heavy drinking GI following Problem Qualifiers (1) Acute renal failure: Qualified Code: N17.0 - Acute renal failure with tubular necrosis (2) Cirrhosis: Horace Adrian MD Dec 02, 2016 14:33
--- NOTE | 2016-12-02 16:58 | HHI.GIFU ---
Subjective Remarks Sitting in a chair comfortably no pain no discomfort Objective Vitals I&O Vital Signs Date Time Temp Pulse Resp B/P Pulse Ox O2 Delivery O2 Flow Rate FiO2 12/02/16 15:58 97.8 70 20 136/79 99 12/02/16 12:00 97.3 71 20 120/69 95 12/02/16 08:05 97.6 73 20 133/81 96 12/02/16 07:50 66 12/02/16 04:01 96.6 68 18 134/85 96 12/02/16 00:24 96.6 76 18 136/84 99 12/01/16 21:36 21 12/01/16 20:11 96.2 86 20 151/85 98 12/01/16 20:00 80 12/01/16 17:12 96.2 82 20 141/77 95 I/O 12/01/16 12/01/16 12/01/16 12/02/16 12/02/16 12/02/16 07:00 15:00 23:00 07:00 15:00 23:00 Intake Total 480 ml Balance 480 ml Intake Oral 480 ml # Voids 3 1 1 1 # Bowel Movements 1 2 Laboratory Laboratory Tests Test 12/02/16 08:55 White Blood Count 10.5 Red Blood Count 2.62 Hemoglobin 8.7 Hematocrit 24.7 Mean Corpuscular Volume 94.1 Mean Corpuscular Hemoglobin 33.3 Mean Corpuscular Hemoglobin 35.4 Concent Red Cell Distribution Width 14.1 Platelet Count 69 Mean Platelet Volume 8.8 Imaging Last 48 hours Impressions Upper Extremity Ultrasound 12/01/16 0000 Signed Impressions: Service Date/Time: Thursday, December 01, 2016 18:48 - CONCLUSION: 1. No deep venous thrombosis identified. Limited evaluation of right subclavian vein due to [id number]. Joseph Marti MD Upper Extremity Ultrasound 12/01/16 0000 Signed Impressions: Service Date/Time: Thursday, December 01, 2016 19:02 - CONCLUSION: Normal examination. Joseph Marti MD Physical Exam HEENT: Normocephalic; atraumatic; no jaundice. CHEST: Clear to auscultation CARDIAC: RRR ABDOMEN: Soft, nondistended, nontender; no hepatosplenomegaly; bowel sounds are present in all four quadrants. EXTREMITIES: Mild generalized edema. SKIN: Generalized pallor [employer] O[employer]ED SALES [employer]GER: No focal deficits; alert and oriented times three. Assessment and Plan Plan ASSESSMENT: - Anemia, Hemoccult (+) Stool. States that he does have some intermittent melena. HH 9.1/25.9. He will need evaluation with EGD/Colonoscopy, but was just started on HD and is very lethargic/shallow breathing. Will give him a few days to try to optimize him with HD. 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 Reports no ETOH x 13 months. Never had EGD/colonoscopy. LFTs and lipase normal. - Thrombocytopenia. 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 The disease appears to be active. Not much interstitial fibrosis or tubular atrophy. IgA nephropathy has been associated with Cirrhosis of the liver. Prognosis for renal recovery is poor." Cellcept, Prednisone. - Cellulitis of legs, Abx, blood cx negative per attending Plan: - PPI - Monitor HH - Transfuse as necessary - EGD/Colonoscopy tomorrow - Supportive care Reji Cristina MD Dec 02, 2016 16:58
[2016-12-02] MEDS: ONDANSETRON HCL 4 MG/2 ML VIAL IV PRN (17:13)
[2016-12-03] VITALS (7 sets, daily range): BP systolic 141–145; BP diastolic 81–87; PULSE 65–86; RESP 18–20; TEMP 96.7–96.8; O2SAT 96–100
[2016-12-03] MEDS: ONDANSETRON HCL 4 MG/2 ML VIAL IVP PRN (00:15)
[2016-12-03] MEDS: SODIUM CHLORIDE 0.9% FLUSH 5 ML FLUSH FLUSH PRN (00:15)
[2016-12-03] MEDS: LORazepam 1 MG TAB PO PRN ×4 (00:16→22:14)
[2016-12-03] MEDS: ACETAMINOPHEN/HYDROcodone 325 MG/5 MG TAB PO PRN ×3 (00:16→22:14)
[2016-12-03] MEDS: CHLORHEXIDINE GLUCONATE 2 % 1 PACK (2 CLOTHS) TOP SCH (04:00)
[2016-12-03] MEDS: MYCOPHENOLATE MOFETIL 500 MG TAB PO SCH ×2 (06:16→17:17)
[2016-12-03] MEDS: SEVELAMER CARBONATE 800 MG TAB PO SCH ×3 (08:00→17:17)
[2016-12-03] MEDS: PANTOPRAZOLE SOD 40 MG DELAYED RELEASE TAB PO SCH (08:17)
[2016-12-03] MEDS: predniSONE 20 MG TAB PO SCH (08:17)
[2016-12-03] MEDS: ONDANSETRON HCL 4 MG/2 ML VIAL IV PRN (08:19)
[2016-12-03] MEDS: SODIUM CHLORIDE 0.9% FLUSH 5 ML FLUSH FLUSH SCH ×2 (08:20→22:15)
--- NOTE | 2016-12-03 08:59 | HHI.NPPN ---
Subjective Complaints: Confused, Obesity General Problems: Edema, Hypertension Renal Failure: Acute Interval History Seen during dialysis. He is NPO for EGD/colonoscopy today. (Helen Gaspar) Review of Systems General Constitutional: Fatigue (Helen Gaspar) Cardiovascular Cardiac: Edema (Helen Gaspar) Objective Data Data 12/02/16 12/03/16 19:00 07:00 Intake Total 960 ml Balance 960 ml Intake Oral 960 ml # Voids 1 3 # Bowel Movements 2 2 Vital Signs Date Time Temp Pulse Resp B/P Pulse Ox O2 Delivery O2 Flow Rate FiO2 12/03/16 04:00 96.7 67 20 142/87 100 12/03/16 00:00 96.8 71 20 141/81 98 12/02/16 20:15 92 Nasal Cannula 21 12/02/16 20:00 57 12/02/16 20:00 97.7 64 20 140/83 98 12/02/16 15:58 97.8 70 20 136/79 99 12/02/16 12:00 97.3 71 20 120/69 95 (Helen Gaspar) -: 12/02/16 0855 11/30/16 0630 Imaging Last 72 hours Impressions Upper Extremity Ultrasound 12/01/16 0000 Signed Impressions: Service Date/Time: Thursday, December 01, 2016 18:48 - CONCLUSION: 1. No deep venous thrombosis identified. Limited evaluation of right subclavian vein due to [id number]. Joseph Marti MD Upper Extremity Ultrasound 12/01/16 0000 Signed Impressions: Service Date/Time: Thursday, December 01, 2016 19:02 - CONCLUSION: Normal examination. Joseph Marti MD Tubes & Lines: Perma-Cath (Helen Gaspar) Physical Exam General Appearance: Well Developed, Well Nourished, No Acute Distress, Comfortable, Sleeping (Helen Gaspar) Eyes Eye Exam: Pupils Equal (Helen Gaspar) Throat Throat Exam: Oral Mucosa [place] & Moist (Helen Gaspar) Pulmonary Resp Exam: Clear Bilaterally, Breath Sounds Equal, No Distress (Helen Gaspar) Cardiology CV Exam: Regular, Normal Sinus Rhythm, Good Perfusion (Helen Gaspar) Gastrointestinal/Abdomen GI Exam: Soft, Non-Tender, Bowel Sounds Present, Positive Bowel Movement ( Helen Gaspar) Genitourinary Remarks anuric (Helen Gaspar) Musculoskeletal MS Exam: Joints Intact, Normal Gait, Normal Tone (Helen Gaspar) Integumentary Skin Exam: Clear, Warm, Dry, Intact (Helen Gaspar) Extremeties Extremities Exam: Pedal Pulses Palpable, Trace Edema, Dependent Edema (Helen Gaspar) Neurologic Neuro Exam: Alert, Awake, Oriented, Speech Clear, Moving All Extremities ( Helen Gaspar) Psychiatric Psych Exam: Appropriate Responses (Helen Gaspar) Assessment/Plan Discussed Condition With: Patient Assessment Summary: SAL/Acute Renal Failure, Fluid/Volume Overload, Proteinuria Problem List: (1) Acute renal failure Plan: 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 The disease appears to be active. Not much interstitial fibrosis or tubular atrophy. IgA nephropathy has also been associated with Cirrhosis of the liver. The consensus of treatment for this condition is to treat it like RPGN from other causes: vasculitis, lupus or anti GBM disease. 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 Patient is aware. He has been placed on CellCept; continue prednisone 60 mg po daily for 30 days and then start taper. dialysis -- - Seen during dialysis today on a 2K, 350 BFR, goal 3L UF Permcath in place, monitor function anuric currently, monitor urine output, await recovery phase recheck renal panel in am continue Renvela, he is on high dose, to manage phosphorus, discussed timing of medication administration avoid nephrotoxins, encouraged oral hydration/nutrition Outpatient HD arrangements in process, 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 Platelet count is stable is stable No evidence of thrombotic microangiopathy. (3) Cirrhosis Plan: per findings on Ct scan long hx of heavy drinking GI following (Helen Gaspar) Plan patient was seen and examined. Agree with above assessment and plan. May need to get Vascular surgery consult for AVF placement. He has shown no signs of renal recovery unfortunately. (Fredo Mayer MD) Problem Qualifiers (1) Acute renal failure: Qualified Code: N17.0 - Acute renal failure with tubular necrosis (2) Cirrhosis: Helen Gaspar Dec 03, 2016 08:58 Fredo Mayer MD Dec 03, 2016 10:20
[2016-12-03] MEDS: HEPARIN SODIUM - IV 10,000 UNITS/10 ML VIAL PRN (11:29)
[2016-12-03] MEDS: GENTAMICIN SULFATE (DIALYSIS USE ONLY) 20 MG/2 ML VIAL IV PRN (11:29)
--- NOTE | 2016-12-03 11:41 | HHI.PR ---
Subjective Remarks in no acute distress. having his HD today. no new complaints. Objective Vitals Vital Signs Date Time Temp Pulse Resp B/P Pulse Ox O2 Delivery O2 Flow Rate FiO2 12/03/16 04:00 96.7 67 20 142/87 100 12/03/16 00:00 96.8 71 20 141/81 98 12/02/16 20:15 92 Nasal Cannula 21 12/02/16 20:00 57 12/02/16 20:00 97.7 64 20 140/83 98 12/02/16 15:58 97.8 70 20 136/79 99 12/02/16 12:00 97.3 71 20 120/69 95 I/O 12/02/16 12/02/16 12/02/16 12/03/16 12/03/16 12/03/16 07:00 15:00 23:00 07:00 15:00 23:00 Intake Total 960 ml Output Total 4000 ml Balance 960 ml -4000 ml Intake Oral 960 ml Hemodialysis 4000 ml # Voids 1 2 2 # Bowel Movements 2 2 Result Diagram: 12/02/16 0855 11/30/16 0630 Imaging Last Impressions Upper Extremity Ultrasound 12/01/16 0000 Signed Impressions: Service Date/Time: Thursday, December 01, 2016 18:48 - CONCLUSION: 1. No deep venous thrombosis identified. Limited evaluation of right subclavian vein due to [id number]. Joseph Marti MD Catheter Placement X-Ray 11/26/16 0940 Signed Impressions: Service Date/Time: Saturday, November 26, 2016 14:33 - CONCLUSION: Uncomplicated PermaCath placement as above. Hong Huffman MD Renal Biopsy CT 11/22/16 0000 Signed Impressions: Service Date/Time: October 11:57 - CONCLUSION: Uncomplicated CT guided biopsy of the right lower pole kidney. Derek Monet MD Renal Ultrasound 11/19/16 0000 Signed Impressions: Service Date/Time: Saturday, November 19, 2016 09:26 - CONCLUSION: Normal examination. Garrett Lopes MD Radiology Special Procedure 11/19/16 0000 Signed Impressions: Service Date/Time: Saturday, November 19, 2016 00:00 - CONCLUSION: Hemostasis around the catheter insertion site was achieved. The patient tolerated the procedure well. Horace Zapata MD Abdomen/Pelvis CT 11/19/16 0000 Signed Impressions: Service Date/Time: Saturday, November 19, 2016 13:56 - CONCLUSION: Stable findings of cirrhosis and splenomegaly with varices. Otherwise negative. Garrett Lopes MD Chest X-Ray 11/18/16 1628 Signed Impressions: Service Date/Time: Friday, November 18, 2016 16:49 - CONCLUSION: Cardiomegaly. Derek Rider MD Objective Remarks GENERAL: This is a well-nourished, well-developed patient, in no apparent distress. CARDIOVASCULAR: Regular rate and regular rhythm without murmurs, gallops, or rubs. RESPIRATORY: Clear to auscultation. Breath sounds equal bilaterally. No wheezes , rales, or rhonchi. GASTROINTESTINAL: Abdomen soft, non-tender, nondistended. Normal, active bowel sounds MUSCULOSKELETAL: Extremities without clubbing, cyanosis, or edema. NEURO: Alert & Oriented x4 to person, place, time, situation. Moves all ext x4 Procedures renal biopsy perma cath placement Medications and IVs Current Medications Piperacillin Sod/ Tazobactam Sod 100 ml @ 200 mls/hr ONCE STAT IV Last administered on 11/18/16 17:00; Start 11/18/16 at 16:28; Stop 11/18/16 at 16:57 ; Status DC Vancomycin HCl/ Sodium Chloride (Vancomycin Inj/ NS 500 ml Inj) 523 ml @ 257.5 mls/ hr ONCE STAT IV Last administered on 11/18/16 17:54; Start 11/18/16 at 16:28; Stop 11/18/16 at 18:29; Status DC Ondansetron HCl (Zofran Inj) 4 mg ONCE ONCE IV PUSH Last administered on 18:07; Start 11/18/16 at 18:15; Stop 11/18/16 at 18:16; Status DC Sodium Polystyrene Sulfonate 30 gm 30 gm ONCE ONCE PO Last administered on 19:29; Start 11/18/16 at 19:15; Stop 11/18/16 at 19:16; Status DC Pharmacy Profile Note 0 ml @ 0 mls/hr UNSCH OTHER ; Start 11/18/16 at 19:30; Stop 11/18/16 at 21:31; Status DC Piperacillin Sod/ Tazobactam Sod (Zosyn 2.25 Gm Premix) 50 ml @ 100 mls/hr Q6H IV Last administered on 11/24/16 11:23; Start 11/19/16 at 00:00; Stop at 11:47; Status DC IV Flush (NS Flush) 2 ml UNSCH PRN FLUSH FLUSH AFTER USING IV ACCESS Last administered on 12/03/16 00:15; Start 11/18/16 at 19:30 IV Flush (NS Flush) 2 ml BID FLUSH Last administered on 12/03/16 08:20; Start 11/18/16 at 21:00 Ondansetron HCl (Zofran Inj) 4 mg Q6H PRN IVP NAUSEA OR VOMITING Last administered on 12/03/16 00:15; Start 11/18/16 at 19:30 Bisacodyl (Dulcolax Supp) 10 mg DAILY PRN [place] CONSTIPATION; Start 11/18/16 at 19 :30 Acetaminophen (Tylenol) 650 mg Q6H PRN PO FEVER/PAIN SCALE 1 TO 2; Start at 19:30 Acetaminophen/ Hydrocodone Bitart ([place] 5-325 Mg) 1 tab Q4H PRN PO PAIN SCALE 3 TO 5 Last administered on 12/03/16 04:16; Start 11/18/16 at 19:30 Morphine Sulfate (Morphine Inj) 2 mg Q3H PRN IV Pain 6-10 Last administered on 11/20/16 17:05; Start 11/18/16 at 19:30 Miscellaneous Information 1 [id number] Last administered on 11/18/16 19:30; Start 11/18/16 at 19:30 Chlorhexidine Gluconate (Chlorhexidine 2% Cloth) Taper DAILY@04 TOP Last administered on 11/22/16 04:00; Start 11/19/16 at 04:00; Stop 11/15/17 at 03:59 Chlorhexidine Gluconate (Chlorhexidine 2% Cloth) 3 pack UNSCH PRN TOP HYGIENIC CARE; Start 11/18/16 at 19:30 Lorazepam (Ativan Inj) 1 mg Q4H PRN IV PUSH AGITATION/ANXIETY Last administered on 12/02/16 08:25; Start 11/18/16 at 21:30; Stop 12/02/16 at 11:02; Status DC Diphenhydramine HCl 25 mg 25 mg Q4H PRN IV PUSH ITCHING/RASH Last administered on 11/18/16 23:59; Start 11/19/16 at 00:00 Methylprednisolone Sodium Succinate 500 mg/Dextrose 100 ml @ 200 mls/hr DAILY IV Last administered on 11/22/16 08:54; Start 11/19/16 at 09:15; Stop at 09:00; Status DC Sodium Chloride (NS 1000 ml Inj) 1,000 ml @ 0 mls/hr Q0M PRN IV For Prime & Rinse Back Last administered on 11/21/16 09:27; Start 11/19/16 at 09:14 Heparin Sodium (Porcine) 8000 units 8,000 units UNSCH PRN IVF WITH DIALYSIS; Start 11/19/16 at 09:15 Sodium Chloride 1,000 ml @ 200 mls/hr Q5H PRN IV WITH DIALYSIS Last administered on 11/21/16 09:28; Start 11/19/16 at 09:14 Sodium Chloride (NS 1000 ml Inj) 1,000 ml @ 0 mls/hr Q0M PRN IV WITH DIALYSIS; Start 11/19/16 at 09:14 Mannitol (Mannitol Inj) 12.5 gm UNSCH PRN IV WITH DIALYSIS; Start 11/19/16 at 09:15 Albumin Human (Albumin 25% Inj) 25 gm UNSCH PRN IV WITH DIALYSIS Last administered on 11/28/16 11:38; Start 11/19/16 at 09:15 IV Flush (NS Flush) 5 ml UNSCH PRN IVF WITH DIALYSIS Last administered on 09:29; Start 11/19/16 at 09:15 Heparin Sodium (Porcine) (Heparin Inj) UNSCH PRN .XX WITH DIALYSIS Last administered on 12/03/16 11:29; Start 11/19/16 at 09:15 Gentamicin Sulfate (Gentamicin (Dialysis) Inj) 20 mg UNSCH PRN IV WITH DIALYSIS Last administered on 12/03/16 11:29; Start 11/19/16 at 09:15 Ondansetron HCl (Zofran Inj) 4 mg UNSCH PRN IV WITH DIALYSIS Last administered on 12/03/16 08:19; Start 11/19/16 at 09:15 Acetaminophen (Tylenol) 650 mg UNSCH PRN PO for headach, pain, temp > 101F; Start 11/19/16 at 09:15 Diphenhydramine HCl (Benadryl) 25 mg UNSCH PRN PO for hives/itching/anaphylaxis ; Start 11/19/16 at 09:15 Nitroglycerin (Nitrostat Sl) 0.4 mg UNSCH PRN SL CHEST PAIN; Start 11/19/16 at 09:15 Clonidine (Catapres) 0.1 mg UNSCH PRN PO for BP > 180/100 X 2 readings; Start 11/19/16 at 09:15 Gelatin (Gelfoam 12 Mm/7 Mm Top) 1 foam UNSCH PRN TOP SEE LABEL COMMENTS Last administered on 11/19/16 17:18; Start 11/19/16 at 09:15 Heparin Sodium (Porcine) (*HEPARIN INJ Periprocedural ONLY) 10,000 units STK- MED ONCE .ROUTE Last administered on 11/19/16 13:43; Start 11/19/16 at 13:43; Stop 11/19/16 at 13:44; Status DC IV Flush (NS Flush) UNSCH PRN IVF SEE PROTOCOL; Start 11/19/16 at 14:15 Heparin Sodium (Porcine) (Heparin Inj) UNSCH PRN IVF SEE PROTOCOL; Start 11/19 at 14:15 Thrombin (Thrombin Top Soln) 5,000 units STK-MED ONCE .ROUTE Last administered on 11/19/16 16:58; Start 11/19/16 at 16:58; Stop 11/19/16 at 16:59; Status DC Gelatin (Gelfoam 12 Mm/7 Mm Top) 2 foam STK-MED ONCE EXT Last administered on 18:01; Start 11/19/16 at 18:01; Stop 11/19/16 at 18:02; Status DC Protamine Sulfate (Protamine Sulfate Inj) 50 mg STK-MED ONCE .ROUTE Last administered on 11/19/16 19:25; Start 11/19/16 at 19:22; Stop 11/19/16 at 19:23 ; Status DC Thrombin (Thrombin Top Soln) 5,000 units STK-MED ONCE .ROUTE Last administered on 11/19/16 19:50; Start 11/19/16 at 19:50; Stop 11/19/16 at 19:51; Status DC Sevelamer Carbonate (Renvela) 1,600 mg TIDAC PO Last administered on 11/24/16 08:38; Start 11/20/16 at 17:00; Stop 11/24/16 at 09:04; Status DC Promethazine HCl (Phenergan Inj) 25 mg ONCE ONCE IM Last administered on 23:23; Start 11/20/16 at 23:15; Stop 11/20/16 at 23:18; Status DC Prednisone (Deltasone) 60 mg DAILY PO Last administered on 12/03/16 08:17; Start 11/22/16 at 10:00 Lidocaine/ Epinephrine (Xylocaine-Epi 1%-1:100,000 Inj) 20 ml STK-MED ONCE .ROUTE Last administered on 11/22/16 10:48; Start 11/22/16 at 10:48; Stop at 10:49; Status DC Fentanyl Citrate (fentaNYL INJ) 250 mcg STK-MED ONCE .ROUTE Last administered on 11/22/16 11:41; Start 11/22/16 at 11:41; Stop 11/22/16 at 11:42; Status DC Midazolam HCl (Versed Inj) 5 mg STK-MED ONCE .ROUTE Last administered on 11:41; Start 11/22/16 at 11:41; Stop 11/22/16 at 11:42; Status DC Simethicone (Mylicon Chew) 80 mg ONCE ONCE CHEW Last administered on 23:00; Start 11/23/16 at 23:00; Stop 11/23/16 at 23:04; Status DC Sevelamer Carbonate (Renvela) 2,400 mg TIDAC PO Last administered on 12/01/16 15:07; Start 11/24/16 at 12:00 Mycophenolate Mofetil 500 mg 500 mg BID@06,18 PO Last administered on 12/03/16 06:16; Start 11/24/16 at 18:00 Piperacillin Sod/ Tazobactam Sod (Zosyn 2.25 Gm Premix) 50 ml @ 100 mls/hr Q12H IV Last administered on 11/25/16 11:16; Start 11/25/16 at 00:00; Stop at 13:00; Status DC Al Hydrox/Mg Hydrox/Simethicone (Mag-Al Plus Susp Liq) 30 ml Q6H PRN PO HEARTBURN Last administered on 11/25/16 19:37; Start 11/24/16 at 14:00 Clindamycin HCl 300 mg 300 mg Q6HR PO Last administered on 11/27/16 11:26; Start 11/25/16 at 18:00; Stop 11/27/16 at 17:00; Status DC Cefazolin Sodium/ Dextrose 50 ml @ 100 mls/hr CONCRETE JOURNEYMAN IV Last administered on 11/26/16 13:50; Start 11/26/16 at 12:30; Stop 11/29/16 at 12:29; Status DC Vancomycin HCl/ Sodium Chloride (Vancomycin Inj/ NS 250 ml Inj) 250 ml @ 250 mls/hr CONCRETE JOURNEYMAN IV Last administered on 11/26/16 13:51; Start 11/26/16 at 12: 30; Stop 11/29/16 at 12:29; Status DC Midazolam HCl (Versed Inj) 5 mg STK-MED ONCE .ROUTE Last administered on 14:30; Start 11/26/16 at 14:16; Stop 11/26/16 at 14:17; Status DC Fentanyl Citrate (fentaNYL INJ) 250 mcg STK-MED ONCE .ROUTE Last administered on 11/26/16 14:30; Start 11/26/16 at 14:16; Stop 11/26/16 at 14:17; Status DC Thrombin (Thrombin Top Soln) 5,000 units STK-MED ONCE .ROUTE Last administered on 11/26/16 15:00; Start 11/26/16 at 14:16; Stop 11/26/16 at 14:17; Status DC Heparin Sodium (Porcine) (*HEPARIN INJ Periprocedural ONLY) 10,000 units STK- MED ONCE .ROUTE Last administered on 11/26/16 14:59; Start 11/26/16 at 14:25; Stop 11/26/16 at 14:26; Status DC Lidocaine/ Epinephrine (Xylocaine-Epi 1%-1:100,000 Inj) 20 ml STK-MED ONCE .ROUTE Last administered on 11/26/16 14:55; Start 11/26/16 at 14:25; Stop at 14:26; Status DC IV Flush (NS Flush) UNSCH PRN IVF SEE PROTOCOL; Start 11/26/16 at 15:15 Heparin Sodium (Porcine) (Heparin Inj) UNSCH PRN IVF SEE PROTOCOL; Start 11/26 at 15:15 Pantoprazole Sodium (Protonix) 40 mg DAILY PO Last administered on 12/03/16 08: 17; Start 11/27/16 at 09:30 Lorazepam (Ativan) 1 mg ONCE ONCE PO ; Start 11/27/16 at 21:15; Stop 11/27/16 at 21:16; Status DC Polyethylene Glycol/ Electrolytes (Colyte Liq) 4,000 ml ONCE ONCE PO Last administered on 12/02/16 11:57; Start 12/02/16 at 11:00; Stop 12/02/16 at 11:01; Status DC Lorazepam (Ativan) 1 mg Q4HR PRN PO ANXIETY Last administered on 12/03/16 08:19 ; Start 12/02/16 at 11:15 A/P Assessment and Plan A/P - Cellulitis of left leg completed the course of treatment.DVT ruled out with doppler. 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 Nephrology consulted and following. s/p permacath placement. on HD as per nephrology. on prednisone and Cellcept per nephrology might need vascular surgery evaluation for AV graft placement. -Thrombocytopenia will monitor. - Cirrhosis- likely due to alcohol- GI evaluated. - Anemia Likely due to liver disease, renal disease, hypersplenism.positive stool for blood-however no active bleeding- GI following- plan for EGD/ colonoscopy tomorrow- - H/O ETOH abuse counselled on drinking cessation. DVT prophylaxis: SCDs, no chemotherapy prophylaxis given thrombocytopenia Discharge Planning needs HD- case management dc planning in progress. Sachi Medeiros MD Dec 03, 2016 11:40
[2016-12-03] MEDS ORDERED: PROPOFOL 200 MG/20 ML AMP IV ONE (13:14)
[2016-12-04] VITALS (8 sets, daily range): BP systolic 114–145; BP diastolic 66–89; PULSE 68–91; RESP 16–21; TEMP 96.5–98.2; O2SAT 93–99
[2016-12-04] MEDS: LORazepam 1 MG TAB PO PRN ×3 (02:26→21:59)
[2016-12-04] MEDS: ACETAMINOPHEN/HYDROcodone 325 MG/5 MG TAB PO PRN ×5 (02:27→22:00)
[2016-12-04] MEDS: CHLORHEXIDINE GLUCONATE 2 % 1 PACK (2 CLOTHS) TOP SCH (04:00)
[2016-12-04] MEDS: MYCOPHENOLATE MOFETIL 500 MG TAB PO SCH ×2 (06:27→18:51)
[2016-12-04 07:32] LABS: BICARBONATE 28.6 MEQ/L (21.0-32.0); POTASSIUM 4.8 MEQ/L (3.5-5.1)
--- NOTE | 2016-12-04 10:00 | HHI.NPPN ---
Subjective Complaints: Confused, Obesity General Problems: Edema, Hypertension Renal Failure: Acute Interval History Pt is sleeping, Had dialysis yesterday. No acute concerns. No improvement in creatinine. (Helen Gaspar) Review of Systems General Constitutional: Fatigue (Helen Gaspar) Cardiovascular Cardiac: Edema (Helen Gaspar) Objective Data Data 12/03/16 12/04/16 19:00 07:00 Intake Total 900 ml 600 ml Output Total 4000 ml Balance -3100 ml 600 ml Intake Oral 500 ml 600 ml IV Total 400 ml Hemodialysis 4000 ml # Voids 3 5 # Bowel Movements 1 1 Vital Signs Date Time Temp Pulse Resp B/P Pulse Ox O2 Delivery O2 Flow Rate FiO2 12/04/16 08:00 96.5 75 19 114/66 96 12/04/16 06:11 97.5 71 17 125/71 96 12/04/16 00:44 98.2 91 17 136/88 98 12/03/16 22:14 96 21 12/03/16 21:00 85 12/03/16 20:18 96.8 75 18 145/87 100 12/03/16 18:32 86 12/03/16 13:45 67 20 133/84 93 12/03/16 13:40 67 20 131/83 93 12/03/16 13:35 98.4 69 22 127/83 94 12/03/16 10:15 65 (Helen Gaspar) -: 12/02/16 0855 12/04/16 0606 Tubes & Lines: Perma-Cath (Helen Gaspar) Physical Exam General Appearance: Well Developed, Well Nourished, No Acute Distress, Comfortable, Sleeping (Helen Gaspar) Eyes Eye Exam: Pupils Equal (Helen Gaspar) Throat Throat Exam: Oral Mucosa [place] & Moist (Helen Gaspar) Pulmonary Resp Exam: Clear Bilaterally, Breath Sounds Equal, No Distress (Helen Gaspar) Cardiology CV Exam: Regular, Normal Sinus Rhythm, Good Perfusion (Helen Gaspar) Gastrointestinal/Abdomen GI Exam: Soft, Non-Tender, Bowel Sounds Present, Positive Bowel Movement ( Helen Gaspar) Genitourinary Remarks anuric (Helen Gaspar) Musculoskeletal MS Exam: Joints Intact, Normal Gait, Normal Tone (Helen Gaspar) Integumentary Skin Exam: Clear, Warm, Dry, Intact (Helen Gaspar) Extremeties Extremities Exam: Pedal Pulses Palpable, Trace Edema, Dependent Edema (Helen Gaspar) Neurologic Neuro Exam: Alert, Awake, Oriented, Speech Clear, Moving All Extremities ( Helen Gaspar) Psychiatric Psych Exam: Appropriate Responses (Helen Gaspar) Assessment/Plan Discussed Condition With: Patient Assessment Summary: SAL/Acute Renal Failure, Fluid/Volume Overload, Proteinuria Problem List: (1) Acute renal failure Plan: 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 The disease appears to be active. Not much interstitial fibrosis or tubular atrophy. IgA nephropathy has also been associated with Cirrhosis of the liver. The consensus of treatment for this condition is to treat it like RPGN from other causes: vasculitis, lupus or anti GBM disease. 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 Patient is aware. He has been placed on CellCept; continue prednisone 60 mg po daily for 30 days and then start taper. 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 Platelet count has been stable, recheck in am No evidence of thrombotic microangiopathy. (3) Cirrhosis Plan: per findings on Ct scan long hx of heavy drinking GI following (Helen Gaspar) Plan patient was seen and examined. It appears that his urine output is improving. Discussed with RN to strictly monitor his urine output. Continue dialysis support. (Fredo Mayer MD) Problem Qualifiers (1) Acute renal failure: Qualified Code: N17.0 - Acute renal failure with tubular necrosis (2) Cirrhosis: Helen Gaspar Dec 04, 2016 10:00 Fredo Mayer MD Dec 04, 2016 19:21
[2016-12-04] MEDS: PANTOPRAZOLE SOD 40 MG DELAYED RELEASE TAB PO SCH (10:46)
[2016-12-04] MEDS: SEVELAMER CARBONATE 800 MG TAB PO SCH ×3 (10:46→18:50)
[2016-12-04] MEDS: predniSONE 20 MG TAB PO SCH (10:47)
[2016-12-04] MEDS: SODIUM CHLORIDE 0.9% FLUSH 5 ML FLUSH FLUSH SCH ×2 (10:47→21:00)
--- NOTE | 2016-12-04 13:22 | HHI.PR ---
Subjective Remarks in no distress. complaining of dry skin. no other complaints. Objective Vitals Vital Signs Date Time Temp Pulse Resp B/P Pulse Ox O2 Delivery O2 Flow Rate FiO2 12/04/16 12:13 96.7 81 20 142/89 12/04/16 09:18 93 21 12/04/16 08:00 96.5 75 19 114/66 96 12/04/16 06:11 97.5 71 17 125/71 96 12/04/16 00:44 98.2 91 17 136/88 98 12/03/16 22:14 96 21 12/03/16 21:00 85 12/03/16 20:18 96.8 75 18 145/87 100 12/03/16 18:32 86 12/03/16 13:45 67 20 133/84 93 12/03/16 13:40 67 20 131/83 93 12/03/16 13:35 98.4 69 22 127/83 94 I/O 12/03/16 12/03/16 12/03/16 12/04/16 12/04/16 12/04/16 07:00 15:00 23:00 07:00 15:00 23:00 Intake Total 400 ml 500 ml 600 ml Output Total 4000 ml Balance -3600 ml 500 ml 600 ml Intake Oral 500 ml 600 ml IV Total 400 ml Hemodialysis 4000 ml # Voids 2 3 5 # Bowel Movements 2 1 1 Result Diagram: 12/02/16 0855 12/04/16 0606 Imaging Last Impressions Upper Extremity Ultrasound 12/01/16 0000 Signed Impressions: Service Date/Time: Thursday, December 01, 2016 18:48 - CONCLUSION: 1. No deep venous thrombosis identified. Limited evaluation of right subclavian vein due to [id number]. Joseph Mrati MD Catheter Placement X-Ray 11/26/16 0940 Signed Impressions: Service Date/Time: Saturday, November 26, 2016 14:33 - CONCLUSION: Uncomplicated PermaCath placement as above. Hong Huffman MD Renal Biopsy CT 11/22/16 0000 Signed Impressions: Service Date/Time: October 11:57 - CONCLUSION: Uncomplicated CT guided biopsy of the right lower pole kidney. Derek Monet MD Renal Ultrasound 11/19/16 0000 Signed Impressions: Service Date/Time: Saturday, November 19, 2016 09:26 - CONCLUSION: Normal examination. Garrett Lopes MD Radiology Special Procedure 11/19/16 0000 Signed Impressions: Service Date/Time: Saturday, November 19, 2016 00:00 - CONCLUSION: Hemostasis around the catheter insertion site was achieved. The patient tolerated the procedure well. Horace Zapata MD Abdomen/Pelvis CT 11/19/16 0000 Signed Impressions: Service Date/Time: Saturday, November 19, 2016 13:56 - CONCLUSION: Stable findings of cirrhosis and splenomegaly with varices. Otherwise negative. Garrett Lopes MD Chest X-Ray 11/18/16 1628 Signed Impressions: Service Date/Time: Friday, November 18, 2016 16:49 - CONCLUSION: Cardiomegaly. Derek Rider MD Objective Remarks GENERAL: This is a well-nourished, well-developed patient, in no apparent distress. CARDIOVASCULAR: Regular rate and regular rhythm without murmurs, gallops, or rubs. RESPIRATORY: Clear to auscultation. Breath sounds equal bilaterally. No wheezes , rales, or rhonchi. GASTROINTESTINAL: Abdomen soft, non-tender, nondistended. Normal, active bowel sounds MUSCULOSKELETAL: Extremities without clubbing, cyanosis, or edema. NEURO: Alert & Oriented x4 to person, place, time, situation. Moves all ext x4 Procedures renal biopsy perma cath placement Medications and IVs Current Medications Piperacillin Sod/ Tazobactam Sod 100 ml @ 200 mls/hr ONCE STAT IV Last administered on 11/18/16 17:00; Start 11/18/16 at 16:28; Stop 11/18/16 at 16:57 ; Status DC Vancomycin HCl/ Sodium Chloride (Vancomycin Inj/ NS 500 ml Inj) 523 ml @ 257.5 mls/ hr ONCE STAT IV Last administered on 11/18/16 17:54; Start 11/18/16 at 16:28; Stop 11/18/16 at 18:29; Status DC Ondansetron HCl (Zofran Inj) 4 mg ONCE ONCE IV PUSH Last administered on 18:07; Start 11/18/16 at 18:15; Stop 11/18/16 at 18:16; Status DC Sodium Polystyrene Sulfonate 30 gm 30 gm ONCE ONCE PO Last administered on 19:29; Start 11/18/16 at 19:15; Stop 11/18/16 at 19:16; Status DC Pharmacy Profile Note 0 ml @ 0 mls/hr UNSCH OTHER ; Start 11/18/16 at 19:30; Stop 11/18/16 at 21:31; Status DC Piperacillin Sod/ Tazobactam Sod (Zosyn 2.25 Gm Premix) 50 ml @ 100 mls/hr Q6H IV Last administered on 11/24/16 11:23; Start 11/19/16 at 00:00; Stop at 11:47; Status DC IV Flush (NS Flush) 2 ml UNSCH PRN FLUSH FLUSH AFTER USING IV ACCESS Last administered on 12/03/16 00:15; Start 11/18/16 at 19:30 IV Flush (NS Flush) 2 ml BID FLUSH Last administered on 12/04/16 10:47; Start 11/18/16 at 21:00 Ondansetron HCl (Zofran Inj) 4 mg Q6H PRN IVP NAUSEA OR VOMITING Last administered on 12/03/16 00:15; Start 11/18/16 at 19:30 Bisacodyl (Dulcolax Supp) 10 mg DAILY PRN [facility] CONSTIPATION; Start 11/18/16 at 19 :30 Acetaminophen (Tylenol) 650 mg Q6H PRN PO FEVER/PAIN SCALE 1 TO 2; Start at 19:30 Acetaminophen/ Hydrocodone Bitart ([place] 5-325 Mg) 1 tab Q4H PRN PO PAIN SCALE 3 TO 5 Last administered on 12/04/16 13:14; Start 11/18/16 at 19:30 Morphine Sulfate (Morphine Inj) 2 mg Q3H PRN IV Pain 6-10 Last administered on 11/20/16 17:05; Start 11/18/16 at 19:30 Miscellaneous Information 1 [id number] Last administered on 11/18/16 19:30; Start 11/18/16 at 19:30 Chlorhexidine Gluconate (Chlorhexidine 2% Cloth) Taper DAILY@04 TOP Last administered on 11/22/16 04:00; Start 11/19/16 at 04:00; Stop 11/15/17 at 03:59 Chlorhexidine Gluconate (Chlorhexidine 2% Cloth) 3 pack UNSCH PRN TOP HYGIENIC CARE; Start 11/18/16 at 19:30 Lorazepam (Ativan Inj) 1 mg Q4H PRN IV PUSH AGITATION/ANXIETY Last administered on 12/02/16 08:25; Start 11/18/16 at 21:30; Stop 12/02/16 at 11:02; Status DC Diphenhydramine HCl 25 mg 25 mg Q4H PRN IV PUSH ITCHING/RASH Last administered on 11/18/16 23:59; Start 11/19/16 at 00:00 Methylprednisolone Sodium Succinate 500 mg/Dextrose 100 ml @ 200 mls/hr DAILY IV Last administered on 11/22/16 08:54; Start 11/19/16 at 09:15; Stop at 09:00; Status DC Sodium Chloride (NS 1000 ml Inj) 1,000 ml @ 0 mls/hr Q0M PRN IV For Prime & Rinse Back Last administered on 11/21/16 09:27; Start 11/19/16 at 09:14 Heparin Sodium (Porcine) 8000 units 8,000 units UNSCH PRN IVF WITH DIALYSIS; Start 11/19/16 at 09:15 Sodium Chloride 1,000 ml @ 200 mls/hr Q5H PRN IV WITH DIALYSIS Last administered on 11/21/16 09:28; Start 11/19/16 at 09:14 Sodium Chloride (NS 1000 ml Inj) 1,000 ml @ 0 mls/hr Q0M PRN IV WITH DIALYSIS; Start 11/19/16 at 09:14 Mannitol (Mannitol Inj) 12.5 gm UNSCH PRN IV WITH DIALYSIS; Start 11/19/16 at 09:15 Albumin Human (Albumin 25% Inj) 25 gm UNSCH PRN IV WITH DIALYSIS Last administered on 11/28/16 11:38; Start 11/19/16 at 09:15 IV Flush (NS Flush) 5 ml UNSCH PRN IVF WITH DIALYSIS Last administered on 09:29; Start 11/19/16 at 09:15 Heparin Sodium (Porcine) (Heparin Inj) UNSCH PRN .XX WITH DIALYSIS Last administered on 12/03/16 11:29; Start 11/19/16 at 09:15 Gentamicin Sulfate (Gentamicin (Dialysis) Inj) 20 mg UNSCH PRN IV WITH DIALYSIS Last administered on 12/03/16 11:29; Start 11/19/16 at 09:15 Ondansetron HCl (Zofran Inj) 4 mg UNSCH PRN IV WITH DIALYSIS Last administered on 12/03/16 08:19; Start 11/19/16 at 09:15 Acetaminophen (Tylenol) 650 mg UNSCH PRN PO for headach, pain, temp > 101F; Start 11/19/16 at 09:15 Diphenhydramine HCl (Benadryl) 25 mg UNSCH PRN PO for hives/itching/anaphylaxis ; Start 11/19/16 at 09:15 Nitroglycerin (Nitrostat Sl) 0.4 mg UNSCH PRN SL CHEST PAIN; Start 11/19/16 at 09:15 Clonidine (Catapres) 0.1 mg UNSCH PRN PO for BP > 180/100 X 2 readings; Start 11/19/16 at 09:15 Gelatin (Gelfoam 12 Mm/7 Mm Top) 1 foam UNSCH PRN TOP SEE LABEL COMMENTS Last administered on 11/19/16 17:18; Start 11/19/16 at 09:15 Heparin Sodium (Porcine) (*HEPARIN INJ Periprocedural ONLY) 10,000 units STK- MED ONCE .ROUTE Last administered on 11/19/16 13:43; Start 11/19/16 at 13:43; Stop 11/19/16 at 13:44; Status DC IV Flush (NS Flush) UNSCH PRN IVF SEE PROTOCOL; Start 11/19/16 at 14:15 Heparin Sodium (Porcine) (Heparin Inj) UNSCH PRN IVF SEE PROTOCOL; Start 11/19 at 14:15 Thrombin (Thrombin Top Soln) 5,000 units STK-MED ONCE .ROUTE Last administered on 11/19/16 16:58; Start 11/19/16 at 16:58; Stop 11/19/16 at 16:59; Status DC Gelatin (Gelfoam 12 Mm/7 Mm Top) 2 foam STK-MED ONCE EXT Last administered on 18:01; Start 11/19/16 at 18:01; Stop 11/19/16 at 18:02; Status DC Protamine Sulfate (Protamine Sulfate Inj) 50 mg STK-MED ONCE .ROUTE Last administered on 11/19/16 19:25; Start 11/19/16 at 19:22; Stop 11/19/16 at 19:23 ; Status DC Thrombin (Thrombin Top Soln) 5,000 units STK-MED ONCE .ROUTE Last administered on 11/19/16 19:50; Start 11/19/16 at 19:50; Stop 11/19/16 at 19:51; Status DC Sevelamer Carbonate (Renvela) 1,600 mg TIDAC PO Last administered on 11/24/16 08:38; Start 11/20/16 at 17:00; Stop 11/24/16 at 09:04; Status DC Promethazine HCl (Phenergan Inj) 25 mg ONCE ONCE IM Last administered on 23:23; Start 11/20/16 at 23:15; Stop 11/20/16 at 23:18; Status DC Prednisone (Deltasone) 60 mg DAILY PO Last administered on 12/04/16 10:47; Start 11/22/16 at 10:00 Lidocaine/ Epinephrine (Xylocaine-Epi 1%-1:100,000 Inj) 20 ml STK-MED ONCE .ROUTE Last administered on 11/22/16 10:48; Start 11/22/16 at 10:48; Stop at 10:49; Status DC Fentanyl Citrate (fentaNYL INJ) 250 mcg STK-MED ONCE .ROUTE Last administered on 11/22/16 11:41; Start 11/22/16 at 11:41; Stop 11/22/16 at 11:42; Status DC Midazolam HCl (Versed Inj) 5 mg STK-MED ONCE .ROUTE Last administered on 11:41; Start 11/22/16 at 11:41; Stop 11/22/16 at 11:42; Status DC Simethicone (Mylicon Chew) 80 mg ONCE ONCE CHEW Last administered on 23:00; Start 11/23/16 at 23:00; Stop 11/23/16 at 23:04; Status DC Sevelamer Carbonate (Renvela) 2,400 mg TIDAC PO Last administered on 12/04/16 13:08; Start 11/24/16 at 12:00 Mycophenolate Mofetil 500 mg 500 mg BID@06,18 PO Last administered on 12/04/16 06:27; Start 11/24/16 at 18:00 Piperacillin Sod/ Tazobactam Sod (Zosyn 2.25 Gm Premix) 50 ml @ 100 mls/hr Q12H IV Last administered on 11/25/16 11:16; Start 11/25/16 at 00:00; Stop at 13:00; Status DC Al Hydrox/Mg Hydrox/Simethicone (Mag-Al Plus Susp Liq) 30 ml Q6H PRN PO HEARTBURN Last administered on 11/25/16 19:37; Start 11/24/16 at 14:00 Clindamycin HCl 300 mg 300 mg Q6HR PO Last administered on 11/27/16 11:26; Start 11/25/16 at 18:00; Stop 11/27/16 at 17:00; Status DC Cefazolin Sodium/ Dextrose 50 ml @ 100 mls/hr [employer] IV Last administered on 11/26/16 13:50; Start 11/26/16 at 12:30; Stop 11/29/16 at 12:29; Status DC Vancomycin HCl/ Sodium Chloride (Vancomycin Inj/ NS 250 ml Inj) 250 ml @ 250 mls/hr [employer]PERATOR IV Last administered on 11/26/16 13:51; Start 11/26/16 at 12: 30; Stop 11/29/16 at 12:29; Status DC Midazolam HCl (Versed Inj) 5 mg STK-MED ONCE .ROUTE Last administered on 14:30; Start 11/26/16 at 14:16; Stop 11/26/16 at 14:17; Status DC Fentanyl Citrate (fentaNYL INJ) 250 mcg STK-MED ONCE .ROUTE Last administered on 11/26/16 14:30; Start 11/26/16 at 14:16; Stop 11/26/16 at 14:17; Status DC Thrombin (Thrombin Top Soln) 5,000 units STK-MED ONCE .ROUTE Last administered on 11/26/16 15:00; Start 11/26/16 at 14:16; Stop 11/26/16 at 14:17; Status DC Heparin Sodium (Porcine) (*HEPARIN INJ Periprocedural ONLY) 10,000 units STK- MED ONCE .ROUTE Last administered on 11/26/16 14:59; Start 11/26/16 at 14:25; Stop 11/26/16 at 14:26; Status DC Lidocaine/ Epinephrine (Xylocaine-Epi 1%-1:100,000 Inj) 20 ml STK-MED ONCE .ROUTE Last administered on 11/26/16 14:55; Start 11/26/16 at 14:25; Stop at 14:26; Status DC IV Flush (NS Flush) UNSCH PRN IVF SEE PROTOCOL; Start 11/26/16 at 15:15 Heparin Sodium (Porcine) (Heparin Inj) UNSCH PRN IVF SEE PROTOCOL; Start 11/26 at 15:15 Pantoprazole Sodium (Protonix) 40 mg DAILY PO Last administered on 12/04/16 10: 46; Start 11/27/16 at 09:30 Lorazepam (Ativan) 1 mg ONCE ONCE PO ; Start 11/27/16 at 21:15; Stop 11/27/16 at 21:16; Status DC Polyethylene Glycol/ Electrolytes (Colyte Liq) 4,000 ml ONCE ONCE PO Last administered on 12/02/16 11:57; Start 12/02/16 at 11:00; Stop 12/02/16 at 11:01; Status DC Lorazepam (Ativan) 1 mg Q4HR PRN PO ANXIETY Last administered on 12/04/16 06:26 ; Start 12/02/16 at 11:15 Propofol (Diprivan 200 Mg/20 ml Inj) 300 mg STK-MED ONCE IV ; Start 12/03/16 at 13:14; Stop 12/03/16 at 13:41; Status DC A/P Assessment and Plan A/P - Cellulitis of left leg completed the course of treatment.DVT ruled out with doppler. 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 Nephrology consulted and following. s/p permacath placement. on HD as per nephrology. on prednisone and Cellcept per nephrology might need vascular surgery evaluation for AV graft placement. -Thrombocytopenia will monitor. - Cirrhosis- likely due to alcohol- GI evaluated. - Anemia Likely due to liver disease, renal disease, hypersplenism.positive stool for blood-however no active bleeding- GI following- plan for EGD/ colonoscopy tomorrow- - H/O ETOH abuse counselled on drinking cessation. DVT prophylaxis: SCDs, no chemotherapy prophylaxis given thrombocytopenia Discharge Planning needs HD- case management dc planning in progress. Sachi Medeiros MD Dec 04, 2016 13:22
[2016-12-04] MEDS ORDERED: EUCERIN CREAM 120 GM JAR TOPICAL PRN (14:30)
[2016-12-05 00:20] VITALS: BP 137/91; PULSE 67; RESP 17; TEMP 98.1; O2SAT 96
[2016-12-05] MEDS: ACETAMINOPHEN/HYDROcodone 325 MG/5 MG TAB PO PRN ×5 (02:29→21:42)
[2016-12-05] MEDS: LORazepam 1 MG TAB PO PRN ×3 (02:32→21:47)
[2016-12-05 04:00] VITALS: BP 130/81; PULSE 67; RESP 16; TEMP 97.1; O2SAT 98
[2016-12-05] MEDS: CHLORHEXIDINE GLUCONATE 2 % 1 PACK (2 CLOTHS) TOP SCH (04:00)
[2016-12-05 07:53] VITALS: BP 137/87; PULSE 72; RESP 18; TEMP 96.1; O2SAT 98
[2016-12-05] MEDS: SEVELAMER CARBONATE 800 MG TAB PO SCH ×3 (08:40→17:23)
[2016-12-05] MEDS: PANTOPRAZOLE SOD 40 MG DELAYED RELEASE TAB PO SCH (08:40)
[2016-12-05] MEDS: predniSONE 20 MG TAB PO SCH (08:41)
[2016-12-05] MEDS: SODIUM CHLORIDE 0.9% FLUSH 5 ML FLUSH FLUSH SCH ×2 (08:43→21:41)
--- NOTE | 2016-12-05 08:58 | HHI.PR ---
Subjective Remarks resting comfortably with no distress. denies pain. for HD today. Objective Vitals Vital Signs Date Time Temp Pulse Resp B/P Pulse Ox O2 Delivery O2 Flow Rate FiO2 12/05/16 04:00 97.1 67 16 130/81 98 12/05/16 00:20 98.1 67 17 137/91 96 12/04/16 21:30 97.8 68 16 145/80 98 12/04/16 19:00 78 12/04/16 14:00 98.1 72 21 130/80 99 12/04/16 12:13 96.7 81 20 142/89 12/04/16 09:18 93 21 I/O 12/04/16 12/04/16 12/04/16 12/05/16 12/05/16 12/05/16 07:00 15:00 23:00 07:00 15:00 23:00 Intake Total 600 ml 1000 ml 700 ml Output Total 150 ml 150 ml Balance 600 ml 850 ml 550 ml Intake Oral 600 ml 1000 ml 700 ml Output Urine Total 150 ml 150 ml # Voids 5 4 # Bowel Movements 1 1 0 Result Diagram: 12/02/16 0855 12/04/16 0606 Imaging Last Impressions Upper Extremity Ultrasound 12/01/16 0000 Signed Impressions: Service Date/Time: Thursday, December 01, 2016 18:48 - CONCLUSION: 1. No deep venous thrombosis identified. 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 Joseph Marti MD Catheter Placement X-Ray 11/26/16 0940 Signed Impressions: Service Date/Time: Saturday, November 26, 2016 14:33 - CONCLUSION: Uncomplicated PermaCath placement as above. Hong Huffman MD Renal Biopsy CT 11/22/16 0000 Signed Impressions: Service Date/Time: October 11:57 - CONCLUSION: Uncomplicated CT guided biopsy of the right lower pole kidney. Derek Monet MD Renal Ultrasound 11/19/16 0000 Signed Impressions: Service Date/Time: Saturday, November 19, 2016 09:26 - CONCLUSION: Normal examination. Garrett Lopes MD Radiology Special Procedure 11/19/16 0000 Signed Impressions: Service Date/Time: Saturday, November 19, 2016 00:00 - CONCLUSION: Hemostasis around the catheter insertion site was achieved. The patient tolerated the procedure well. Horace Zapata MD Abdomen/Pelvis CT 11/19/16 0000 Signed Impressions: Service Date/Time: Saturday, November 19, 2016 13:56 - CONCLUSION: Stable findings of cirrhosis and splenomegaly with varices. Otherwise negative. Garrett Lopes MD Chest X-Ray 11/18/16 1628 Signed Impressions: Service Date/Time: Friday, November 18, 2016 16:49 - CONCLUSION: Cardiomegaly. Derek Rider MD Objective Remarks GENERAL: This is a well-nourished, well-developed patient, in no apparent distress. CARDIOVASCULAR: Regular rate and regular rhythm without murmurs, gallops, or rubs. RESPIRATORY: Clear to auscultation. Breath sounds equal bilaterally. No wheezes , rales, or rhonchi. GASTROINTESTINAL: Abdomen soft, non-tender, nondistended. Normal, active bowel sounds MUSCULOSKELETAL: Extremities without clubbing, cyanosis, or edema. NEURO: Alert & Oriented x4 to person, place, time, situation. Moves all ext x4 Procedures renal biopsy perma cath placement Medications and IVs Current Medications Piperacillin Sod/ Tazobactam Sod 100 ml @ 200 mls/hr ONCE STAT IV Last administered on 11/18/16 17:00; Start 11/18/16 at 16:28; Stop 11/18/16 at 16:57 ; Status DC Vancomycin HCl/ Sodium Chloride (Vancomycin Inj/ NS 500 ml Inj) 523 ml @ 257.5 mls/ hr ONCE STAT IV Last administered on 11/18/16 17:54; Start 11/18/16 at 16:28; Stop 11/18/16 at 18:29; Status DC Ondansetron HCl (Zofran Inj) 4 mg ONCE ONCE IV PUSH Last administered on 18:07; Start 11/18/16 at 18:15; Stop 11/18/16 at 18:16; Status DC Sodium Polystyrene Sulfonate 30 gm 30 gm ONCE ONCE PO Last administered on 19:29; Start 11/18/16 at 19:15; Stop 11/18/16 at 19:16; Status DC Pharmacy Profile Note 0 ml @ 0 mls/hr UNSCH OTHER ; Start 11/18/16 at 19:30; Stop 11/18/16 at 21:31; Status DC Piperacillin Sod/ Tazobactam Sod (Zosyn 2.25 Gm Premix) 50 ml @ 100 mls/hr Q6H IV Last administered on 11/24/16 11:23; Start 11/19/16 at 00:00; Stop at 11:47; Status DC IV Flush (NS Flush) 2 ml UNSCH PRN FLUSH FLUSH AFTER USING IV ACCESS Last administered on 12/03/16 00:15; Start 11/18/16 at 19:30 IV Flush (NS Flush) 2 ml BID FLUSH Last administered on 12/05/16 08:43; Start 11/18/16 at 21:00 Ondansetron HCl (Zofran Inj) 4 mg Q6H PRN IVP NAUSEA OR VOMITING Last administered on 12/03/16 00:15; Start 11/18/16 at 19:30 Bisacodyl (Dulcolax Supp) 10 mg DAILY PRN MI CONSTIPATION; Start 11/18/16 at 19 :30 Acetaminophen (Tylenol) 650 mg Q6H PRN PO FEVER/PAIN SCALE 1 TO 2; Start at 19:30 Acetaminophen/ Hydrocodone Bitart ([place] 5-325 Mg) 1 tab Q4H PRN PO PAIN SCALE 3 TO 5 Last administered on 12/05/16 06:11; Start 11/18/16 at 19:30 Morphine Sulfate (Morphine Inj) 2 mg Q3H PRN IV Pain 6-10 Last administered on 11/20/16 17:05; Start 11/18/16 at 19:30 Miscellaneous Information 1 [id number] XX Last administered on 11/18/16 19:30; Start 11/18/16 at 19:30 Chlorhexidine Gluconate (Chlorhexidine 2% Cloth) Taper DAILY@04 TOP Last administered on 11/22/16 04:00; Start 11/19/16 at 04:00; Stop 11/15/17 at 03:59 Chlorhexidine Gluconate (Chlorhexidine 2% Cloth) 3 pack UNSCH PRN TOP HYGIENIC CARE; Start 11/18/16 at 19:30 Lorazepam (Ativan Inj) 1 mg Q4H PRN IV PUSH AGITATION/ANXIETY Last administered on 12/02/16 08:25; Start 11/18/16 at 21:30; Stop 12/02/16 at 11:02; Status DC Diphenhydramine HCl 25 mg 25 mg Q4H PRN IV PUSH ITCHING/RASH Last administered on 11/18/16 23:59; Start 11/19/16 at 00:00 Methylprednisolone Sodium Succinate 500 mg/Dextrose 100 ml @ 200 mls/hr DAILY IV Last administered on 11/22/16 08:54; Start 11/19/16 at 09:15; Stop at 09:00; Status DC Sodium Chloride (NS 1000 ml Inj) 1,000 ml @ 0 mls/hr Q0M PRN IV For Prime & Rinse Back Last administered on 11/21/16 09:27; Start 11/19/16 at 09:14 Heparin Sodium (Porcine) 8000 units 8,000 units UNSCH PRN IVF WITH DIALYSIS; Start 11/19/16 at 09:15 Sodium Chloride 1,000 ml @ 200 mls/hr Q5H PRN IV WITH DIALYSIS Last administered on 11/21/16 09:28; Start 11/19/16 at 09:14 Sodium Chloride (NS 1000 ml Inj) 1,000 ml @ 0 mls/hr Q0M PRN IV WITH DIALYSIS; Start 11/19/16 at 09:14 Mannitol (Mannitol Inj) 12.5 gm UNSCH PRN IV WITH DIALYSIS; Start 11/19/16 at 09:15 Albumin Human (Albumin 25% Inj) 25 gm UNSCH PRN IV WITH DIALYSIS Last administered on 11/28/16 11:38; Start 11/19/16 at 09:15 IV Flush (NS Flush) 5 ml UNSCH PRN IVF WITH DIALYSIS Last administered on 09:29; Start 11/19/16 at 09:15 Heparin Sodium (Porcine) (Heparin Inj) UNSCH PRN .XX WITH DIALYSIS Last administered on 12/03/16 11:29; Start 11/19/16 at 09:15 Gentamicin Sulfate (Gentamicin (Dialysis) Inj) 20 mg UNSCH PRN IV WITH DIALYSIS Last administered on 12/03/16 11:29; Start 11/19/16 at 09:15 Ondansetron HCl (Zofran Inj) 4 mg UNSCH PRN IV WITH DIALYSIS Last administered on 12/03/16 08:19; Start 11/19/16 at 09:15 Acetaminophen (Tylenol) 650 mg UNSCH PRN PO for headach, pain, temp > 101F; Start 11/19/16 at 09:15 Diphenhydramine HCl (Benadryl) 25 mg UNSCH PRN PO for hives/itching/anaphylaxis ; Start 11/19/16 at 09:15 Nitroglycerin (Nitrostat Sl) 0.4 mg UNSCH PRN SL CHEST PAIN; Start 11/19/16 at 09:15 Clonidine (Catapres) 0.1 mg UNSCH PRN PO for BP > 180/100 X 2 readings; Start 11/19/16 at 09:15 Gelatin (Gelfoam 12 Mm/7 Mm Top) 1 foam UNSCH PRN TOP SEE LABEL COMMENTS Last administered on 11/19/16 17:18; Start 11/19/16 at 09:15 Heparin Sodium (Porcine) (*HEPARIN INJ Periprocedural ONLY) 10,000 units STK- MED ONCE .ROUTE Last administered on 11/19/16 13:43; Start 11/19/16 at 13:43; Stop 11/19/16 at 13:44; Status DC IV Flush (NS Flush) UNSCH PRN IVF SEE PROTOCOL; Start 11/19/16 at 14:15 Heparin Sodium (Porcine) (Heparin Inj) UNSCH PRN IVF SEE PROTOCOL; Start 11/19 at 14:15 Thrombin (Thrombin Top Soln) 5,000 units STK-MED ONCE .ROUTE Last administered on 11/19/16 16:58; Start 11/19/16 at 16:58; Stop 11/19/16 at 16:59; Status DC Gelatin (Gelfoam 12 Mm/7 Mm Top) 2 foam STK-MED ONCE EXT Last administered on 18:01; Start 11/19/16 at 18:01; Stop 11/19/16 at 18:02; Status DC Protamine Sulfate (Protamine Sulfate Inj) 50 mg STK-MED ONCE .ROUTE Last administered on 11/19/16 19:25; Start 11/19/16 at 19:22; Stop 11/19/16 at 19:23 ; Status DC Thrombin (Thrombin Top Soln) 5,000 units STK-MED ONCE .ROUTE Last administered on 11/19/16 19:50; Start 11/19/16 at 19:50; Stop 11/19/16 at 19:51; Status DC Sevelamer Carbonate (Renvela) 1,600 mg TIDAC PO Last administered on 11/24/16 08:38; Start 11/20/16 at 17:00; Stop 11/24/16 at 09:04; Status DC Promethazine HCl (Phenergan Inj) 25 mg ONCE ONCE IM Last administered on 23:23; Start 11/20/16 at 23:15; Stop 11/20/16 at 23:18; Status DC Prednisone (Deltasone) 60 mg DAILY PO Last administered on 12/05/16 08:41; Start 11/22/16 at 10:00 Lidocaine/ Epinephrine (Xylocaine-Epi 1%-1:100,000 Inj) 20 ml STK-MED ONCE .ROUTE Last administered on 11/22/16 10:48; Start 11/22/16 at 10:48; Stop at 10:49; Status DC Fentanyl Citrate (fentaNYL INJ) 250 mcg STK-MED ONCE .ROUTE Last administered on 11/22/16 11:41; Start 11/22/16 at 11:41; Stop 11/22/16 at 11:42; Status DC Midazolam HCl (Versed Inj) 5 mg STK-MED ONCE .ROUTE Last administered on 11:41; Start 11/22/16 at 11:41; Stop 11/22/16 at 11:42; Status DC Simethicone (Mylicon Chew) 80 mg ONCE ONCE CHEW Last administered on 23:00; Start 11/23/16 at 23:00; Stop 11/23/16 at 23:04; Status DC Sevelamer Carbonate (Renvela) 2,400 mg TIDAC PO Last administered on 12/05/16 08:40; Start 11/24/16 at 12:00 Mycophenolate Mofetil 500 mg 500 mg BID@06,18 PO Last administered on 12/04/16 18:51; Start 11/24/16 at 18:00 Piperacillin Sod/ Tazobactam Sod (Zosyn 2.25 Gm Premix) 50 ml @ 100 mls/hr Q12H IV Last administered on 11/25/16 11:16; Start 11/25/16 at 00:00; Stop at 13:00; Status DC Al Hydrox/Mg Hydrox/Simethicone (Mag-Al Plus Susp Liq) 30 ml Q6H PRN PO HEARTBURN Last administered on 11/25/16 19:37; Start 11/24/16 at 14:00 Clindamycin HCl 300 mg 300 mg Q6HR PO Last administered on 11/27/16 11:26; Start 11/25/16 at 18:00; Stop 11/27/16 at 17:00; Status DC Cefazolin Sodium/ Dextrose 50 ml @ 100 mls/hr COMPUTATIONAL LINGUIST IV Last administered on 11/26/16 13:50; Start 11/26/16 at 12:30; Stop 11/29/16 at 12:29; Status DC Vancomycin HCl/ Sodium Chloride (Vancomycin Inj/ NS 250 ml Inj) 250 ml @ 250 mls/hr COMPUTATIONAL LINGUIST IV Last administered on 11/26/16 13:51; Start 11/26/16 at 12: 30; Stop 11/29/16 at 12:29; Status DC Midazolam HCl (Versed Inj) 5 mg STK-MED ONCE .ROUTE Last administered on 14:30; Start 11/26/16 at 14:16; Stop 11/26/16 at 14:17; Status DC Fentanyl Citrate (fentaNYL INJ) 250 mcg STK-MED ONCE .ROUTE Last administered on 11/26/16 14:30; Start 11/26/16 at 14:16; Stop 11/26/16 at 14:17; Status DC Thrombin (Thrombin Top Soln) 5,000 units STK-MED ONCE .ROUTE Last administered on 11/26/16 15:00; Start 11/26/16 at 14:16; Stop 11/26/16 at 14:17; Status DC Heparin Sodium (Porcine) (*HEPARIN INJ Periprocedural ONLY) 10,000 units STK- MED ONCE .ROUTE Last administered on 11/26/16 14:59; Start 11/26/16 at 14:25; Stop 11/26/16 at 14:26; Status DC Lidocaine/ Epinephrine (Xylocaine-Epi 1%-1:100,000 Inj) 20 ml STK-MED ONCE .ROUTE Last administered on 11/26/16 14:55; Start 11/26/16 at 14:25; Stop at 14:26; Status DC IV Flush (NS Flush) UNSCH PRN IVF SEE PROTOCOL; Start 11/26/16 at 15:15 Heparin Sodium (Porcine) (Heparin Inj) UNSCH PRN IVF SEE PROTOCOL; Start 11/26 at 15:15 Pantoprazole Sodium (Protonix) 40 mg DAILY PO Last administered on 12/05/16 08: 40; Start 11/27/16 at 09:30 Lorazepam (Ativan) 1 mg ONCE ONCE PO ; Start 11/27/16 at 21:15; Stop 11/27/16 at 21:16; Status DC Polyethylene Glycol/ Electrolytes (Colyte Liq) 4,000 ml ONCE ONCE PO Last administered on 12/02/16 11:57; Start 12/02/16 at 11:00; Stop 12/02/16 at 11:01; Status DC Lorazepam (Ativan) 1 mg Q4HR PRN PO ANXIETY Last administered on 12/05/16 06:11 ; Start 12/02/16 at 11:15 Propofol (Diprivan 200 Mg/20 ml Inj) 300 mg STK-MED ONCE IV ; Start 12/03/16 at 13:14; Stop 12/03/16 at 13:41; Status DC Multi-Ingredient Ointment (Eucerin Cream) 1 applic Q6H PRN TOPICAL DRY SKIN Last administered on 12/04/16 18:51; Start 12/04/16 at 14:30 A/P Assessment and Plan A/P - Acute renal failure / glomerulonephritis sp renal biopsy - 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 Nephrology consulted and following. s/p permacath placement. on HD as per nephrology. on prednisone and Cellcept per nephrology might need vascular surgery evaluation for AV graft placement. - Cellulitis of left leg completed the course of treatment.DVT ruled out with doppler. -Thrombocytopenia will monitor. - Cirrhosis- likely due to alcohol- GI evaluated. - Anemia Likely due to liver disease, renal disease, hypersplenism.positive stool for blood-however no active bleeding- s/p EGD / colonoscopy with gastric erosions/ diverticulosis and internal/external hemorrhoids continue PPI. - H/O ETOH abuse counselled on drinking cessation. DVT prophylaxis: SCDs, no chemotherapy prophylaxis given thrombocytopenia Discharge Planning needs HD- case management dc planning in progress. Sachi Medeiros MD Dec 05, 2016 08:57
--- NOTE | 2016-12-05 11:37 | HHI.NPPN ---
Subjective Complaints: Confused, Obesity General Problems: Edema, Hypertension Renal Failure: Acute Interval History Seen during dialysis. He has began to make more urine. (Helen Gaspar ) Review of Systems General Constitutional: Fatigue (Helen Gaspar) Cardiovascular Cardiac: Edema (Helen Gaspar) Objective Data Data 12/04/16 12/05/16 19:00 07:00 Intake Total 1700 ml Output Total 300 ml Balance 1400 ml Intake Oral 1700 ml Output Urine Total 300 ml # Voids 4 # Bowel Movements 1 0 Vital Signs Date Time Temp Pulse Resp B/P Pulse Ox O2 Delivery O2 Flow Rate FiO2 12/05/16 07:53 96.1 72 18 137/87 98 12/05/16 04:00 97.1 67 16 130/81 98 12/05/16 00:20 98.1 67 17 137/91 96 12/04/16 21:30 97.8 68 16 145/80 98 12/04/16 19:00 78 12/04/16 14:00 98.1 72 21 130/80 99 12/04/16 12:13 96.7 81 20 142/89 (Helen Gaspar) -: 12/02/16 0855 12/04/16 0606 Tubes & Lines: Perma-Cath (Helen Gaspar) Physical Exam General Appearance: Well Developed, Well Nourished, No Acute Distress, Comfortable, Sleeping (Helen Gaspar) Eyes Eye Exam: Pupils Equal (Helen Gaspar) Throat Throat Exam: Oral Mucosa [place] & Moist (Helen Gaspar) Pulmonary Resp Exam: Clear Bilaterally, Breath Sounds Equal, No Distress (Helen Gaspar) Cardiology CV Exam: Regular, Normal Sinus Rhythm, Good Perfusion (Helen Gaspar) Gastrointestinal/Abdomen GI Exam: Soft, Non-Tender, Bowel Sounds Present, Positive Bowel Movement ( Helen Gaspar) Genitourinary Remarks anuric (Helen Gaspar) Musculoskeletal MS Exam: Joints Intact, Normal Gait, Normal Tone (Helen Gaspar) Integumentary Skin Exam: Clear, Warm, Dry, Intact (Helen Gaspar) Extremeties Extremities Exam: Pedal Pulses Palpable, Trace Edema, Dependent Edema (Helen Gaspar) Neurologic Neuro Exam: Alert, Awake, Oriented, Speech Clear, Moving All Extremities ( Helen Gaspar) Psychiatric Psych Exam: Appropriate Responses (Helen Gaspar) Assessment/Plan Discussed Condition With: Patient Assessment Summary: SAL/Acute Renal Failure, Fluid/Volume Overload, Proteinuria Problem List: (1) Acute renal failure Plan: 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 The disease appears to be active. Not much interstitial fibrosis or tubular atrophy. IgA nephropathy has also been associated with Cirrhosis of the liver. The consensus of treatment for this condition is to treat it like RPGN from other causes: vasculitis, lupus or anti GBM disease. 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 Patient is aware. He has been placed on CellCept; continue prednisone 60 mg po daily for 30 days and then start taper. dialysis M-- - seen during dialysis today on a 2K, 350 BFR goal 3L Permcath in place, monitor function monitor urine output, it is increasing, ? 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 Platelet count has been stable, recheck in am No evidence of thrombotic microangiopathy. (3) Cirrhosis Plan: per findings on Ct scan long hx of heavy drinking GI following s/p EGD / colonoscopy: gastric erosions/ diverticulosis and internal/external hemorrhoids on PPI (Helen Gaspar) Plan patient was seen and examined. Agree with above assessment and plan. Above plan was formulated by me. (Fredo Mayer MD) Problem Qualifiers (1) Acute renal failure: Qualified Code: N17.0 - Acute renal failure with tubular necrosis (2) Cirrhosis: Helen Gaspar Dec 05, 2016 11:37 Fredo Mayer MD Dec 06, 2016 09:16
[2016-12-05] MEDS: HEPARIN SODIUM - IV 10,000 UNITS/10 ML VIAL PRN (12:14)
[2016-12-05] MEDS: GENTAMICIN SULFATE (DIALYSIS USE ONLY) 20 MG/2 ML VIAL IV PRN (12:14)
[2016-12-05] MEDS: MYCOPHENOLATE MOFETIL 500 MG TAB PO SCH (17:23)
[2016-12-05 20:00] VITALS: BP 136/80; PULSE 71; RESP 18; TEMP 97; O2SAT 96
[2016-12-06] VITALS (8 sets, daily range): BP systolic 122–147; BP diastolic 72–79; PULSE 67–97; RESP 18–20; TEMP 97.3–98.1; O2SAT 94–98
[2016-12-06] MEDS: ACETAMINOPHEN/HYDROcodone 325 MG/5 MG TAB PO PRN ×5 (01:56→22:00)
[2016-12-06] MEDS: LORazepam 1 MG TAB PO PRN ×4 (02:03→21:57)
[2016-12-06] MEDS: CHLORHEXIDINE GLUCONATE 2 % 1 PACK (2 CLOTHS) TOP SCH (04:00)
[2016-12-06] MEDS: SEVELAMER CARBONATE 800 MG TAB PO SCH ×3 (06:35→16:59)
[2016-12-06] MEDS: MYCOPHENOLATE MOFETIL 500 MG TAB PO SCH ×2 (06:35→17:00)
[2016-12-06 07:45] LABS: AUTOMATED NEUTROPHIL # 4.5 TH/MM3 (1.8-7.7); BASOPHIL % 0.1 % (0.0-2.0); EOSINOPHIL % 0.6 % (0.0-4.0); HEMATOCRIT 25.7 % (39.0-51.0); LYMPH % 17.2 % (9.0-44.0); LYMPHOCYTE # 1.1 TH/MM3 (1.0-4.8); MEAN CELL VOLUME 96.3 FL (80.0-100.0); MEAN CORPUSCULAR HGB CONC 34.2 % (32.0-36.0); MONO % 13.4 % (0.0-8.0); NEUT % 68.7 % (16.0-70.0); PLATELET COUNT 50 TH/MM3 (150-450); RED BLOOD COUNT 2.67 MIL/MM3 (4.50-5.90); RED CELL DISTRIBUTION WIDTH 14.3 % (11.6-17.2); WHITE BLOOD COUNT 6.5 TH/MM3 (4.0-11.0)
[2016-12-06 07:50] LABS: HEMO FLAGS AUTO DIFF
[2016-12-06 08:05] LABS: POTASSIUM 4.7 MEQ/L (3.5-5.1)
[2016-12-06] MEDS: PANTOPRAZOLE SOD 40 MG DELAYED RELEASE TAB PO SCH (08:10)
[2016-12-06] MEDS: SODIUM CHLORIDE 0.9% FLUSH 5 ML FLUSH FLUSH SCH ×2 (08:10→22:00)
[2016-12-06] MEDS: predniSONE 20 MG TAB PO SCH (08:10)
[2016-12-06 08:36] LABS: PLATELET ESTIMATE SMEAR LOW (NORMAL); PLATELET MORPHOLOGY NORMAL (NORMAL); SCAN/DIFF AUTO DIFF CONFIRMED
--- NOTE | 2016-12-06 10:52 | HHI.NPPN ---
Subjective Complaints: Confused, Obesity General Problems: Edema, Hypertension Renal Failure: Acute Interval History Dialyzed yesterday. No acute concerns. (Helen Gaspar) Review of Systems General Constitutional: Fatigue (Helen Gaspar) Cardiovascular Cardiac: Edema (Helen Gaspar) Objective Data Data 12/05/16 12/06/16 19:00 07:00 Output Total 3200 ml 155 ml Balance -3200 ml -155 ml Output Urine Total 200 ml 155 ml Hemodialysis 3000 ml # Bowel Movements 0 Vital Signs Date Time Temp Pulse Resp B/P Pulse Ox O2 Delivery O2 Flow Rate FiO2 12/06/16 08:26 97.5 76 18 122/72 96 12/06/16 04:00 97.6 71 20 125/77 98 12/06/16 00:00 97.3 67 18 128/77 97 12/05/16 20:00 97.0 71 18 136/80 96 (Helen Gaspar) -: 12/06/16 0703 12/06/16 0703 Tubes & Lines: Perma-Cath (Helen Gaspar) Physical Exam General Appearance: Well Developed, Well Nourished, No Acute Distress, Comfortable, Sleeping (Helen Gaspar) Eyes Eye Exam: Pupils Equal (Helen Gaspar) Throat Throat Exam: Oral Mucosa Damar & Moist (Helen Gaspar) Pulmonary Resp Exam: Clear Bilaterally, Breath Sounds Equal, No Distress (Helen Gaspar) Cardiology CV Exam: Regular, Normal Sinus Rhythm, Good Perfusion (Helen Gaspar) Gastrointestinal/Abdomen GI Exam: Soft, Non-Tender, Bowel Sounds Present, Positive Bowel Movement ( Helen Gaspar) Genitourinary Remarks anuric (Helen Gaspar) Musculoskeletal MS Exam: Joints Intact, Normal Gait, Normal Tone (Helen Gaspar) Integumentary Skin Exam: Clear, Warm, Dry, Intact (Helen Gaspar) Extremeties Extremities Exam: Pedal Pulses Palpable, Trace Edema, Dependent Edema (Helen Gaspar) Neurologic Neuro Exam: Alert, Awake, Oriented, Speech Clear, Moving All Extremities ( Helen Gaspar) Psychiatric Psych Exam: Appropriate Responses (Helen Gaspar) Assessment/Plan Discussed Condition With: Patient Assessment Summary: SAL/Acute Renal Failure, Fluid/Volume Overload, Proteinuria Problem List: (1) Acute renal failure Plan: 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 The disease appears to be active. Not much interstitial fibrosis or tubular atrophy. IgA nephropathy has also been associated with Cirrhosis of the liver. The consensus of treatment for this condition is to treat it like RPGN from other causes: vasculitis, lupus or anti GBM disease. 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 Patient is aware. He has been placed on CellCept; continue prednisone 60 mg po daily for 30 days and then start taper (beginning 12/22/16) dialysis -- - he had 3L fluid removal yesterday Permcath in place, monitor function monitor urine output, he is beginning to make more urine renal panel in am, we may hold dialysis depending on if creatinine is improving off dialysis continue Renvela, he is on high dose, to manage phosphorus avoid nephrotoxins, encouraged oral hydration/nutrition If terminal worker dialysis is necessary, [facility] facility would be likely facility, they are aware Vein mapping done over the weekend, may require vascular evaluation for AVF placement (2) Thrombocytopenia Plan: Likely due to cirrhosis, alcohol induced bone marrow suppression and hypersplenism. Platelet count has been stable, recheck in am No evidence of thrombotic microangiopathy. (3) Cirrhosis Plan: per findings on Ct scan long hx of heavy drinking GI following s/p EGD / colonoscopy: gastric erosions/ diverticulosis and internal/external hemorrhoids on PPI (Helen Gaspar) Plan patient was seen and examined. Dialysis today and MWF. 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 On prednisone and CellCept. (Fredo Mayer MD) Problem Qualifiers (1) Acute renal failure: Qualified Code: N17.0 - Acute renal failure with tubular necrosis (2) Cirrhosis: Helen Gaspar Dec 06, 2016 10:52 Fredo Mayer MD Dec 07, 2016 15:39
[2016-12-06] MEDS: ONDANSETRON HCL 4 MG/2 ML VIAL IVP PRN (11:30)
--- NOTE | 2016-12-06 13:42 | HHI.PR ---
Subjective Remarks in no distress and comfortable. no new complaints. Objective Vitals Vital Signs Date Time Temp Pulse Resp B/P Pulse Ox O2 Delivery O2 Flow Rate FiO2 12/06/16 12:22 97.3 79 18 137/78 96 12/06/16 08:26 97.5 76 18 122/72 96 12/06/16 04:00 97.6 71 20 125/77 98 12/06/16 00:00 97.3 67 18 128/77 97 12/05/16 20:00 97.0 71 18 136/80 96 I/O 12/05/16 12/05/16 12/05/16 12/06/16 12/06/16 12/06/16 07:00 15:00 23:00 07:00 15:00 23:00 Intake Total 700 ml Output Total 150 ml 3200 ml 30 ml 125 ml Balance 550 ml -3200 ml -30 ml -125 ml Intake Oral 700 ml Output Urine Total 150 ml 200 ml 30 ml 125 ml Hemodialysis 3000 ml # Bowel Movements 0 0 Result Diagram: 12/06/1670212/06/16 0703 Imaging Last Impressions Upper Extremity Ultrasound 12/01/16 0000 Signed Impressions: Service Date/Time: Thursday, December 01, 2016 18:48 - CONCLUSION: 1. No deep venous thrombosis identified. Limited evaluation of right subclavian vein due to [id number]. Joseph Marti MD Catheter Placement X-Ray 11/26/16 0940 Signed Impressions: Service Date/Time: Saturday, November 26, 2016 14:33 - CONCLUSION: Uncomplicated PermaCath placement as above. Hong Huffman MD Renal Biopsy CT 11/22/16 0000 Signed Impressions: Service Date/Time: October 11:57 - CONCLUSION: Uncomplicated CT guided biopsy of the right lower pole kidney. Derek Monet MD Renal Ultrasound 11/19/16 0000 Signed Impressions: Service Date/Time: Saturday, November 19, 2016 09:26 - CONCLUSION: Normal examination. Garrett Lopes MD Radiology Special Procedure 11/19/16 0000 Signed Impressions: Service Date/Time: Saturday, November 19, 2016 00:00 - CONCLUSION: Hemostasis around the catheter insertion site was achieved. The patient tolerated the procedure well. Horace Zapata MD Abdomen/Pelvis CT 11/19/16 0000 Signed Impressions: Service Date/Time: Saturday, November 19, 2016 13:56 - CONCLUSION: Stable findings of cirrhosis and splenomegaly with varices. Otherwise negative. Garrett Lopes MD Chest X-Ray 11/18/16 1628 Signed Impressions: Service Date/Time: Friday, November 18, 2016 16:49 - CONCLUSION: Cardiomegaly. Derek Rider MD Objective Remarks GENERAL: This is a well-nourished, well-developed patient, in no apparent distress. CARDIOVASCULAR: Regular rate and regular rhythm without murmurs, gallops, or rubs. RESPIRATORY: Clear to auscultation. Breath sounds equal bilaterally. No wheezes , rales, or rhonchi. GASTROINTESTINAL: Abdomen soft, non-tender, nondistended. Normal, active bowel sounds MUSCULOSKELETAL: Extremities without clubbing, cyanosis, or edema. NEURO: Alert & Oriented x4 to person, place, time, situation. Moves all ext x4 Procedures renal biopsy perma cath placement Medications and IVs Current Medications Piperacillin Sod/ Tazobactam Sod 100 ml @ 200 mls/hr ONCE STAT IV Last administered on 11/18/16 17:00; Start 11/18/16 at 16:28; Stop 11/18/16 at 16:57 ; Status DC Vancomycin HCl/ Sodium Chloride (Vancomycin Inj/ NS 500 ml Inj) 523 ml @ 257.5 mls/ hr ONCE STAT IV Last administered on 11/18/16 17:54; Start 11/18/16 at 16:28; Stop 11/18/16 at 18:29; Status DC Ondansetron HCl (Zofran Inj) 4 mg ONCE ONCE IV PUSH Last administered on 18:07; Start 11/18/16 at 18:15; Stop 11/18/16 at 18:16; Status DC Sodium Polystyrene Sulfonate 30 gm 30 gm ONCE ONCE PO Last administered on 19:29; Start 11/18/16 at 19:15; Stop 11/18/16 at 19:16; Status DC Pharmacy Profile Note 0 ml @ 0 mls/hr UNSCH OTHER ; Start 11/18/16 at 19:30; Stop 11/18/16 at 21:31; Status DC Piperacillin Sod/ Tazobactam Sod (Zosyn 2.25 Gm Premix) 50 ml @ 100 mls/hr Q6H IV Last administered on 11/24/16 11:23; Start 11/19/16 at 00:00; Stop at 11:47; Status DC IV Flush (NS Flush) 2 ml UNSCH PRN FLUSH FLUSH AFTER USING IV ACCESS Last administered on 12/03/16 00:15; Start 11/18/16 at 19:30 IV Flush (NS Flush) 2 ml BID FLUSH Last administered on 12/06/16 08:10; Start 11/18/16 at 21:00 Ondansetron HCl (Zofran Inj) 4 mg Q6H PRN IVP NAUSEA OR VOMITING Last administered on 12/06/16 11:30; Start 11/18/16 at 19:30 Bisacodyl (Dulcolax Supp) 10 mg DAILY PRN [place] CONSTIPATION; Start 11/18/16 at 19 :30 Acetaminophen (Tylenol) 650 mg Q6H PRN PO FEVER/PAIN SCALE 1 TO 2; Start at 19:30 Acetaminophen/ Hydrocodone Bitart ([place] 5-325 Mg) 1 tab Q4H PRN PO PAIN SCALE 3 TO 5 Last administered on 12/06/16 11:13; Start 11/18/16 at 19:30 Morphine Sulfate (Morphine Inj) 2 mg Q3H PRN IV Pain 6-10 Last administered on 11/20/16 17:05; Start 11/18/16 at 19:30 Miscellaneous Information 1 [id number] XX Last administered on 11/18/16 19:30; Start 11/18/16 at 19:30 Chlorhexidine Gluconate (Chlorhexidine 2% Cloth) Taper DAILY@04 TOP Last administered on 11/22/16 04:00; Start 11/19/16 at 04:00; Stop 11/15/17 at 03:59 Chlorhexidine Gluconate (Chlorhexidine 2% Cloth) 3 pack UNSCH PRN TOP HYGIENIC CARE; Start 11/18/16 at 19:30 Lorazepam (Ativan Inj) 1 mg Q4H PRN IV PUSH AGITATION/ANXIETY Last administered on 12/02/16 08:25; Start 11/18/16 at 21:30; Stop 12/02/16 at 11:02; Status DC Diphenhydramine HCl 25 mg 25 mg Q4H PRN IV PUSH ITCHING/RASH Last administered on 11/18/16 23:59; Start 11/19/16 at 00:00 Methylprednisolone Sodium Succinate 500 mg/Dextrose 100 ml @ 200 mls/hr DAILY IV Last administered on 11/22/16 08:54; Start 11/19/16 at 09:15; Stop at 09:00; Status DC Sodium Chloride (NS 1000 ml Inj) 1,000 ml @ 0 mls/hr Q0M PRN IV For Prime & Rinse Back Last administered on 11/21/16 09:27; Start 11/19/16 at 09:14 Heparin Sodium (Porcine) 8000 units 8,000 units UNSCH PRN IVF WITH DIALYSIS; Start 11/19/16 at 09:15 Sodium Chloride 1,000 ml @ 200 mls/hr Q5H PRN IV WITH DIALYSIS Last administered on 11/21/16 09:28; Start 11/19/16 at 09:14 Sodium Chloride (NS 1000 ml Inj) 1,000 ml @ 0 mls/hr Q0M PRN IV WITH DIALYSIS; Start 11/19/16 at 09:14 Mannitol (Mannitol Inj) 12.5 gm UNSCH PRN IV WITH DIALYSIS; Start 11/19/16 at 09:15 Albumin Human (Albumin 25% Inj) 25 gm UNSCH PRN IV WITH DIALYSIS Last administered on 11/28/16 11:38; Start 11/19/16 at 09:15 IV Flush (NS Flush) 5 ml UNSCH PRN IVF WITH DIALYSIS Last administered on 09:29; Start 11/19/16 at 09:15 Heparin Sodium (Porcine) (Heparin Inj) UNSCH PRN .XX WITH DIALYSIS Last administered on 12/05/16 12:14; Start 11/19/16 at 09:15 Gentamicin Sulfate (Gentamicin (Dialysis) Inj) 20 mg UNSCH PRN IV WITH DIALYSIS Last administered on 12/05/16 12:14; Start 11/19/16 at 09:15 Ondansetron HCl (Zofran Inj) 4 mg UNSCH PRN IV WITH DIALYSIS Last administered on 12/03/16 08:19; Start 11/19/16 at 09:15 Acetaminophen (Tylenol) 650 mg UNSCH PRN PO for headach, pain, temp > 101F; Start 11/19/16 at 09:15 Diphenhydramine HCl (Benadryl) 25 mg UNSCH PRN PO for hives/itching/anaphylaxis ; Start 11/19/16 at 09:15 Nitroglycerin (Nitrostat Sl) 0.4 mg UNSCH PRN SL CHEST PAIN; Start 11/19/16 at 09:15 Clonidine (Catapres) 0.1 mg UNSCH PRN PO for BP > 180/100 X 2 readings; Start 11/19/16 at 09:15 Gelatin (Gelfoam 12 Mm/7 Mm Top) 1 foam UNSCH PRN TOP SEE LABEL COMMENTS Last administered on 11/19/16 17:18; Start 11/19/16 at 09:15 Heparin Sodium (Porcine) (*HEPARIN INJ Periprocedural ONLY) 10,000 units STK- MED ONCE .ROUTE Last administered on 11/19/16 13:43; Start 11/19/16 at 13:43; Stop 11/19/16 at 13:44; Status DC IV Flush (NS Flush) UNSCH PRN IVF SEE PROTOCOL; Start 11/19/16 at 14:15 Heparin Sodium (Porcine) (Heparin Inj) UNSCH PRN IVF SEE PROTOCOL; Start 11/19 at 14:15 Thrombin (Thrombin Top Soln) 5,000 units STK-MED ONCE .ROUTE Last administered on 11/19/16 16:58; Start 11/19/16 at 16:58; Stop 11/19/16 at 16:59; Status DC Gelatin (Gelfoam 12 Mm/7 Mm Top) 2 foam STK-MED ONCE EXT Last administered on 18:01; Start 11/19/16 at 18:01; Stop 11/19/16 at 18:02; Status DC Protamine Sulfate (Protamine Sulfate Inj) 50 mg STK-MED ONCE .ROUTE Last administered on 11/19/16 19:25; Start 11/19/16 at 19:22; Stop 11/19/16 at 19:23 ; Status DC Thrombin (Thrombin Top Soln) 5,000 units STK-MED ONCE .ROUTE Last administered on 11/19/16 19:50; Start 11/19/16 at 19:50; Stop 11/19/16 at 19:51; Status DC Sevelamer Carbonate (Renvela) 1,600 mg TIDAC PO Last administered on 11/24/16 08:38; Start 11/20/16 at 17:00; Stop 11/24/16 at 09:04; Status DC Promethazine HCl (Phenergan Inj) 25 mg ONCE ONCE IM Last administered on 23:23; Start 11/20/16 at 23:15; Stop 11/20/16 at 23:18; Status DC Prednisone (Deltasone) 60 mg DAILY PO Last administered on 12/06/16 08:10; Start 11/22/16 at 10:00 Lidocaine/ Epinephrine (Xylocaine-Epi 1%-1:100,000 Inj) 20 ml STK-MED ONCE .ROUTE Last administered on 11/22/16 10:48; Start 11/22/16 at 10:48; Stop at 10:49; Status DC Fentanyl Citrate (fentaNYL INJ) 250 mcg STK-MED ONCE .ROUTE Last administered on 11/22/16 11:41; Start 11/22/16 at 11:41; Stop 11/22/16 at 11:42; Status DC Midazolam HCl (Versed Inj) 5 mg STK-MED ONCE .ROUTE Last administered on 11:41; Start 11/22/16 at 11:41; Stop 11/22/16 at 11:42; Status DC Simethicone (Mylicon Chew) 80 mg ONCE ONCE CHEW Last administered on 23:00; Start 11/23/16 at 23:00; Stop 11/23/16 at 23:04; Status DC Sevelamer Carbonate (Renvela) 2,400 mg TIDAC PO Last administered on 12/06/16 06:35; Start 11/24/16 at 12:00 Mycophenolate Mofetil 500 mg 500 mg BID@06,18 PO Last administered on 12/06/16 06:35; Start 11/24/16 at 18:00 Piperacillin Sod/ Tazobactam Sod (Zosyn 2.25 Gm Premix) 50 ml @ 100 mls/hr Q12H IV Last administered on 11/25/16 11:16; Start 11/25/16 at 00:00; Stop at 13:00; Status DC Al Hydrox/Mg Hydrox/Simethicone (Mag-Al Plus Susp Liq) 30 ml Q6H PRN PO HEARTBURN Last administered on 11/25/16 19:37; Start 11/24/16 at 14:00 Clindamycin HCl 300 mg 300 mg Q6HR PO Last administered on 11/27/16 11:26; Start 11/25/16 at 18:00; Stop 11/27/16 at 17:00; Status DC Cefazolin Sodium/ Dextrose 50 ml @ 100 mls/hr LOAN UNDERWRITER IV Last administered on 11/26/16 13:50; Start 11/26/16 at 12:30; Stop 11/29/16 at 12:29; Status DC Vancomycin HCl/ Sodium Chloride (Vancomycin Inj/ NS 250 ml Inj) 250 ml @ 250 mls/hr LOAN UNDERWRITER IV Last administered on 11/26/16 13:51; Start 11/26/16 at 12: 30; Stop 11/29/16 at 12:29; Status DC Midazolam HCl (Versed Inj) 5 mg STK-MED ONCE .ROUTE Last administered on 14:30; Start 11/26/16 at 14:16; Stop 11/26/16 at 14:17; Status DC Fentanyl Citrate (fentaNYL INJ) 250 mcg STK-MED ONCE .ROUTE Last administered on 11/26/16 14:30; Start 11/26/16 at 14:16; Stop 11/26/16 at 14:17; Status DC Thrombin (Thrombin Top Soln) 5,000 units STK-MED ONCE .ROUTE Last administered on 11/26/16 15:00; Start 11/26/16 at 14:16; Stop 11/26/16 at 14:17; Status DC Heparin Sodium (Porcine) (*HEPARIN INJ Periprocedural ONLY) 10,000 units STK- MED ONCE .ROUTE Last administered on 11/26/16 14:59; Start 11/26/16 at 14:25; Stop 11/26/16 at 14:26; Status DC Lidocaine/ Epinephrine (Xylocaine-Epi 1%-1:100,000 Inj) 20 ml STK-MED ONCE .ROUTE Last administered on 11/26/16 14:55; Start 11/26/16 at 14:25; Stop at 14:26; Status DC IV Flush (NS Flush) UNSCH PRN IVF SEE PROTOCOL; Start 11/26/16 at 15:15 Heparin Sodium (Porcine) (Heparin Inj) UNSCH PRN IVF SEE PROTOCOL; Start 11/26 at 15:15 Pantoprazole Sodium (Protonix) 40 mg DAILY PO Last administered on 12/06/16 08: 10; Start 11/27/16 at 09:30 Lorazepam (Ativan) 1 mg ONCE ONCE PO ; Start 11/27/16 at 21:15; Stop 11/27/16 at 21:16; Status DC Polyethylene Glycol/ Electrolytes (Colyte Liq) 4,000 ml ONCE ONCE PO Last administered on 12/02/16 11:57; Start 12/02/16 at 11:00; Stop 12/02/16 at 11:01; Status DC Lorazepam (Ativan) 1 mg Q4HR PRN PO ANXIETY Last administered on 12/06/16 11:13 ; Start 12/02/16 at 11:15 Propofol (Diprivan 200 Mg/20 ml Inj) 300 mg STK-MED ONCE IV ; Start 12/03/16 at 13:14; Stop 12/03/16 at 13:41; Status DC Multi-Ingredient Ointment (Eucerin Cream) 1 applic Q6H PRN TOPICAL DRY SKIN Last administered on 12/04/16 18:51; Start 12/04/16 at 14:30 A/P Assessment and Plan A/P - Acute renal failure / glomerulonephritis sp renal biopsy - 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 Nephrology consulted and following. s/p permacath placement. on HD as per nephrology. on prednisone and Cellcept per nephrology might need vascular surgery evaluation for AV graft placement. - Cellulitis of left leg completed the course of treatment.DVT ruled out with doppler. -Thrombocytopenia due to cirrhosis- will monitor. - Cirrhosis- likely due to alcohol- GI evaluated. - Anemia Likely due to liver disease, renal disease, hypersplenism.positive stool for blood-however no active bleeding- s/p EGD / colonoscopy with gastric erosions/ diverticulosis and internal/external hemorrhoids continue PPI. - H/O ETOH abuse counselled on drinking cessation. DVT prophylaxis: SCDs, no chemotherapy prophylaxis given thrombocytopenia Discharge Planning needs HD- case management dc planning in progress. Sachi Medeiros MD Dec 06, 2016 13:42
[2016-12-07 00:17] VITALS: BP 135/81; PULSE 125; RESP 18; TEMP 97.2; O2SAT 99
[2016-12-07] MEDS: ACETAMINOPHEN/HYDROcodone 325 MG/5 MG TAB PO PRN ×5 (01:58→20:44)
[2016-12-07] MEDS: LORazepam 1 MG TAB PO PRN ×2 (01:59→06:25)
[2016-12-07] MEDS: CHLORHEXIDINE GLUCONATE 2 % 1 PACK (2 CLOTHS) TOP SCH ×2 (04:00→20:43)
[2016-12-07 05:24] VITALS: BP 148/92; PULSE 70; RESP 18; TEMP 97.3; O2SAT 98
[2016-12-07] MEDS: SEVELAMER CARBONATE 800 MG TAB PO SCH ×3 (06:25→17:41)
[2016-12-07] MEDS: MYCOPHENOLATE MOFETIL 500 MG TAB PO SCH ×2 (06:25→17:41)
[2016-12-07 08:00] VITALS: BP 157/86; PULSE 70; RESP 20; TEMP 97.9; O2SAT 95
[2016-12-07 08:49] LABS: BICARBONATE 23.4 MEQ/L (21.0-32.0); POTASSIUM 5.1 MEQ/L (3.5-5.1)
[2016-12-07] MEDS: predniSONE 20 MG TAB PO SCH (09:07)
[2016-12-07] MEDS: SODIUM CHLORIDE 0.9% FLUSH 5 ML FLUSH FLUSH SCH ×2 (09:07→20:43)
[2016-12-07] MEDS: PANTOPRAZOLE SOD 40 MG DELAYED RELEASE TAB PO SCH (09:07)
[2016-12-07 09:45] VITALS: PULSE 72
--- NOTE | 2016-12-07 10:44 | HHI.NPPN ---
Subjective Complaints: Confused, Obesity General Problems: Edema, Hypertension Renal Failure: Acute Interval History Patient is sleeping. No acute concerns when awakened. Urine output minimal. ( Helen Gaspar) Review of Systems General Constitutional: Fatigue (Helen Gaspar) Cardiovascular Cardiac: Edema (Helen Gaspar) Objective Data Data 12/06/16 12/07/16 19:00 07:00 Intake Total 360 ml Output Total 275 ml Balance 360 ml -275 ml Intake Oral 360 ml Output Urine Total 275 ml # Voids 1 # Bowel Movements 0 Vital Signs Date Time Temp Pulse Resp B/P Pulse Ox O2 Delivery O2 Flow Rate FiO2 12/07/16 09:45 72 12/07/16 08:00 97.9 70 20 157/86 95 12/07/16 07:16 16 12/07/16 05:24 97.3 70 18 148/92 98 12/07/16 00:17 97.2 125 18 135/81 99 12/06/16 23:30 73 12/06/16 21:21 98.1 67 18 142/79 98 12/06/16 15:52 97.4 97 18 147/77 94 12/06/16 12:22 97.3 79 18 137/78 96 (Helen Gaspar) -: 12/06/16 0703 12/07/16 0739 Tubes & Lines: Perma-Cath (Helen Gaspar) Physical Exam General Appearance: Well Developed, Well Nourished, No Acute Distress, Comfortable, Sleeping (Helen Gaspar) Eyes Eye Exam: Pupils Equal (Helen Gaspar) Throat Throat Exam: Oral Mucosa [place] & Moist (Helen Gaspar) Pulmonary Resp Exam: Clear Bilaterally, Breath Sounds Equal, No Distress (Helen Gaspar) Cardiology CV Exam: Regular, Normal Sinus Rhythm, Good Perfusion (Helen Gaspar) Gastrointestinal/Abdomen GI Exam: Soft, Non-Tender, Bowel Sounds Present, Positive Bowel Movement ( Helen Gaspar) Genitourinary Remarks anuric (Helen Gaspar) Musculoskeletal MS Exam: Joints Intact, Normal Gait, Normal Tone (Helen Gaspar) Integumentary Skin Exam: Clear, Warm, Dry, Intact (Helen Gaspar) Extremeties Extremities Exam: Pedal Pulses Palpable, Trace Edema, Dependent Edema (Helen Gaspar) Neurologic Neuro Exam: Alert, Awake, Oriented, Speech Clear, Moving All Extremities ( Helen Gaspar) Psychiatric Psych Exam: Appropriate Responses (Helen Gaspar) Assessment/Plan Discussed Condition With: Patient Assessment Summary: SAL/Acute Renal Failure, Fluid/Volume Overload, Proteinuria Problem List: (1) Acute renal failure Plan: 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 The disease appears to be active. 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 Patient is aware. 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 Platelet count has been stable, recheck in am No evidence of thrombotic microangiopathy. (3) Cirrhosis Plan: per findings on Ct scan long hx of heavy drinking GI following s/p EGD / colonoscopy: gastric erosions/ diverticulosis and internal/external hemorrhoids on PPI (Helen Gaspar) Plan patient was seen and examined. Agree with above assessment and plan. No significant improvement in urine output. High likelihood that he will reach ESRD. Patient's urine is dark, consistent with nephritic clinical picture. ( Fredo Mayer MD) Problem Qualifiers (1) Acute renal failure: Qualified Code: N17.0 - Acute renal failure with tubular necrosis (2) Cirrhosis: Helen Gaspar Dec 07, 2016 10:44 Fredo Mayer MD Dec 07, 2016 15:49
--- NOTE | 2016-12-07 11:12 | HHI.PR ---
Subjective Remarks Follow-up Glomerulonephritis 12/07/16-patient seen and examined, with minimal urine output. No acute event overnight Objective Vitals Vital Signs Date Time Temp Pulse Resp B/P Pulse Ox O2 Delivery O2 Flow Rate FiO2 12/07/16 09:45 72 12/07/16 08:00 97.9 70 20 157/86 95 12/07/16 07:16 16 12/07/16 05:24 97.3 70 18 148/92 98 12/07/16 00:17 97.2 125 18 135/81 99 12/06/16 23:30 73 12/06/16 21:21 98.1 67 18 142/79 98 12/06/16 15:52 97.4 97 18 147/77 94 12/06/16 12:22 97.3 79 18 137/78 96 I/O 12/06/16 12/06/16 12/06/16 12/07/16 12/07/16 12/07/16 07:00 15:00 23:00 07:00 15:00 23:00 Intake Total 360 ml Output Total 125 ml 175 ml 100 ml Balance -125 ml 185 ml -100 ml Intake Oral 360 ml Output Urine Total 125 ml 175 ml 100 ml # Voids 1 # Bowel Movements 0 Result Diagram: 12/06/16 0703 12/07/16 0739 Objective Remarks GENERAL: NAD SKIN: Warm and dry. HEAD: Normocephalic. EYES: No scleral icterus. No injection or drainage. NECK: Supple, trachea midline. No JVD or lymphadenopathy. Permacath in place CARDIOVASCULAR: Regular rate and rhythm without murmurs, gallops, or rubs. RESPIRATORY: Breath sounds equal bilaterally. No accessory muscle use. GASTROINTESTINAL: Abdomen soft, non-tender, nondistended. MUSCULOSKELETAL: No cyanosis, or edema. BACK: Nontender without obvious deformity. No CVA tenderness. 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 s/p permacath placement. on HD as per nephrology. Continue prednisone and Cellcept might need vascular surgery evaluation for AV graft placement. 2- Cellulitis of left leg: completed the course of treatment.DVT ruled out with doppler. 3-Thrombocytopenia due to cirrhosis-continue to monitor 4- Cirrhosis- likely due to alcohol- GI evaluated. 5- Anemia: Likely due to liver disease, renal disease, hypersplenism.positive stool for blood-however no active bleeding- s/p EGD / colonoscopy with gastric erosions/ diverticulosis and internal/external hemorrhoids. continue PPI. 6- H/O ETOH abuse counselled on drinking cessation. Problem Qualifiers (1) Acute renal failure: Qualified Code: N17.0 - Acute renal failure with tubular necrosis (2) Cirrhosis: Surendra Cooper MD Dec 07, 2016 11:12
[2016-12-07] MEDS: SODIUM CHLOR 0.9% 1000 ML INJ 1,000 ML IV PRN (11:22)
[2016-12-07] MEDS: GENTAMICIN SULFATE (DIALYSIS USE ONLY) 20 MG/2 ML VIAL IV PRN (11:23)
[2016-12-07] MEDS: HEPARIN SODIUM - IV 10,000 UNITS/10 ML VIAL PRN (11:24)
[2016-12-07 16:00] VITALS: BP 140/84; PULSE 76; RESP 20; TEMP 97.1; O2SAT 94
[2016-12-07 20:14] VITALS: BP 155/83; PULSE 75; RESP 18; TEMP 97; O2SAT 98
[2016-12-08] VITALS (8 sets, daily range): BP systolic 123–140; BP diastolic 65–83; PULSE 70–96; RESP 16–20; TEMP 97.3–98.7; O2SAT 95–99
[2016-12-08] MEDS: ACETAMINOPHEN/HYDROcodone 325 MG/5 MG TAB PO PRN ×6 (00:41→23:45)
[2016-12-08] MEDS: LORazepam 1 MG TAB PO PRN ×5 (00:41→23:51)
[2016-12-08] MEDS: MYCOPHENOLATE MOFETIL 500 MG TAB PO SCH ×2 (04:56→17:30)
[2016-12-08] MEDS: SODIUM CHLORIDE 0.9% FLUSH 5 ML FLUSH FLUSH SCH ×2 (09:00→23:46)
[2016-12-08] MEDS: SEVELAMER CARBONATE 800 MG TAB PO SCH ×3 (09:44→17:31)
[2016-12-08] MEDS: PANTOPRAZOLE SOD 40 MG DELAYED RELEASE TAB PO SCH (09:45)
[2016-12-08] MEDS: predniSONE 20 MG TAB PO SCH (09:45)
--- NOTE | 2016-12-08 12:41 | HHI.NPPN ---
Subjective Complaints: Confused, Obesity General Problems: Edema, Hypertension Renal Failure: Acute History of Present Illness 46 y/o male who presented to ER with nausea/vomiting. Found to be in renal failure with Cr 17.2, BUN 249, K 5.4, CO2 13. We were consulted for further management. Additional Remarks Patient is alert, no SOB, started passing some dark urine, no SOB. Review of Systems General Constitutional: Fatigue Cardiovascular Cardiac: Edema Objective Data Data 12/07/16 12/08/16 19:00 07:00 Output Total 4000 ml 250 ml Balance -4000 ml -250 ml Output Urine Total 250 ml Hemodialysis 4000 ml # Bowel Movements 1 Vital Signs Date Time Temp Pulse Resp B/P Pulse Ox O2 Delivery O2 Flow Rate FiO2 12/08/16 08:26 97.4 78 20 127/68 96 12/08/16 05:56 16 12/08/16 04:19 97.6 72 18 132/79 99 12/08/16 00:58 98.7 70 16 137/83 98 12/07/16 20:14 97.0 75 18 155/83 98 12/07/16 16:00 97.1 76 20 140/84 94 -: 12/06/16 0703 12/07/16 0739 Tubes & Lines: Perma-Cath Physical Exam General Appearance: Well Developed, Well Nourished, No Acute Distress, Comfortable Eyes Eye Exam: Pupils Equal Throat Throat Exam: Oral Mucosa [place] & Moist Pulmonary Resp Exam: Clear Bilaterally, Breath Sounds Equal, No Distress Cardiology CV Exam: Regular, Normal Sinus Rhythm, Good Perfusion Gastrointestinal/Abdomen GI Exam: Soft, Non-Tender, Bowel Sounds Present, Positive Bowel Movement Musculoskeletal MS Exam: Joints Intact, Normal Gait, Normal Tone Integumentary Skin Exam: Clear, Warm, Dry, Intact Extremeties Extremities Exam: Trace Edema Neurologic Neuro Exam: Alert, Awake, Oriented, Speech Clear Assessment/Plan Discussed Condition With: Patient Assessment Summary: SAL/Acute Renal Failure, Fluid/Volume Overload, Proteinuria Problem List: (1) Acute renal failure Plan: 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 The disease appears to be active. 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 Patient is aware. 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 HD done yesterday. Possible AVF next week. 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 Platelet count has been stable, recheck in am No evidence of thrombotic microangiopathy. (3) Cirrhosis Plan: per findings on Ct scan long hx of heavy drinking GI following s/p EGD / colonoscopy: gastric erosions/ diverticulosis and internal/external hemorrhoids on PPI Plan Problem Qualifiers (1) Acute renal failure: Qualified Code: N17.0 - Acute renal failure with tubular necrosis (2) Cirrhosis: Glenny Williamson MD Dec 08, 2016 12:41
--- NOTE | 2016-12-08 13:39 | HHI.PR ---
Subjective Remarks Follow-up Glomerulonephritis 12/07/16-patient seen and examined, with minimal urine output. No acute event overnight 12/08/16-patient seen and examined, stable, had hemodialysis yesterday. Patient would like if possible to have AV Fistula done in hospital prior to discharge Objective Vitals Vital Signs Date Time Temp Pulse Resp B/P Pulse Ox O2 Delivery O2 Flow Rate FiO2 12/08/16 12:10 97.3 96 20 123/65 95 12/08/16 08:26 97.4 78 20 127/68 96 12/08/16 05:56 16 12/08/16 04:19 97.6 72 18 132/79 99 12/08/16 00:58 98.7 70 16 137/83 98 12/07/16 20:14 97.0 75 18 155/83 98 12/07/16 16:00 97.1 76 20 140/84 94 I/O 12/07/16 12/07/16 12/07/16 12/08/16 12/08/16 12/08/16 07:00 15:00 23:00 07:00 15:00 23:00 Output Total 100 ml 4000 ml 250 ml Balance -100 ml -4000 ml -250 ml Output Urine Total 100 ml 250 ml Hemodialysis 4000 ml # Voids 1 # Bowel Movements 0 1 Result Diagram: 12/06/16 0703 12/07/16 0739 Objective Remarks GENERAL: NAD SKIN: Warm and dry. HEAD: Normocephalic. EYES: No scleral icterus. No injection or drainage. NECK: Supple, trachea midline. No JVD or lymphadenopathy. Permacath in place CARDIOVASCULAR: Regular rate and rhythm without murmurs, gallops, or rubs. RESPIRATORY: Breath sounds equal bilaterally. No accessory muscle use. GASTROINTESTINAL: Abdomen soft, non-tender, nondistended. MUSCULOSKELETAL: No cyanosis, or edema. BACK: Nontender without obvious deformity. No CVA tenderness. 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 s/p permacath placement. on HD as per nephrology. Continue prednisone and Cellcept might need vascular surgery evaluation for AV graft placement. 2- Cellulitis of left leg: completed the course of treatment.DVT ruled out with doppler. 3-Thrombocytopenia due to cirrhosis-continue to monitor 4- Cirrhosis- likely due to alcohol- GI evaluated. 5- Anemia: Likely due to liver disease, renal disease, hypersplenism.positive stool for blood-however no active bleeding- s/p EGD / colonoscopy with gastric erosions/ diverticulosis and internal/external hemorrhoids. continue PPI. 6- H/O ETOH abuse-counselled on drinking cessation. Problem Qualifiers (1) Acute renal failure: Qualified Code: N17.0 - Acute renal failure with tubular necrosis (2) Cirrhosis: Surendra Cooper MD Dec 08, 2016 13:39
[2016-12-08] MEDS: ZOLPIDEM TARTRATE 5 MG TAB PO PRN (23:46)
[2016-12-09] VITALS (9 sets, daily range): BP systolic 130–157; BP diastolic 55–87; PULSE 63–97; RESP 16–20; TEMP 96.5–98.1; O2SAT 93–99
[2016-12-09] MEDS: CHLORHEXIDINE GLUCONATE 2 % 1 PACK (2 CLOTHS) TOP SCH (03:38)
[2016-12-09] MEDS: LORazepam 1 MG TAB PO PRN ×4 (04:17→22:36)
[2016-12-09] MEDS: ACETAMINOPHEN/HYDROcodone 325 MG/5 MG TAB PO PRN ×4 (04:18→22:37)
[2016-12-09] MEDS: MYCOPHENOLATE MOFETIL 500 MG TAB PO SCH ×2 (06:01→19:00)
[2016-12-09] MEDS: PANTOPRAZOLE SOD 40 MG DELAYED RELEASE TAB PO SCH (08:09)
[2016-12-09] MEDS: predniSONE 20 MG TAB PO SCH (08:09)
[2016-12-09] MEDS: SEVELAMER CARBONATE 800 MG TAB PO SCH ×3 (08:09→16:39)
[2016-12-09] MEDS: SODIUM CHLORIDE 0.9% FLUSH 5 ML FLUSH FLUSH SCH ×2 (09:00→21:00)
--- NOTE | 2016-12-09 10:54 | HHI.PR ---
Subjective Remarks Follow-up Glomerulonephritis 12/07/16-patient seen and examined, with minimal urine output. No acute event overnight 12/08/16-patient seen and examined, stable, had hemodialysis yesterday. Patient would like if possible to have AV Fistula done in hospital prior to discharge 12/09/16-patient seen and examined; he claimed to have had 300+cc of UOP yesterday Objective Vitals Vital Signs Date Time Temp Pulse Resp B/P Pulse Ox O2 Delivery O2 Flow Rate FiO2 12/09/16 09:09 17 12/09/16 08:00 96.9 83 18 131/80 97 12/09/16 04:40 96.7 63 18 150/87 98 12/09/16 00:53 98.1 76 19 143/76 93 12/08/16 20:53 97.5 82 20 140/77 97 12/08/16 18:00 78 12/08/16 16:05 97.4 82 20 126/68 96 12/08/16 12:10 97.3 96 20 123/65 95 I/O 12/08/16 12/08/16 12/08/16 12/09/16 12/09/16 12/09/16 07:00 15:00 23:00 07:00 15:00 23:00 Intake Total 1000 ml Output Total 250 ml 100 ml Balance -250 ml 1000 ml -100 ml Intake Oral 1000 ml Output Urine Total 250 ml 100 ml # Voids 3 3 # Bowel Movements 1 2 Result Diagram: 12/06/16 0703 12/07/16 0739 Objective Remarks GENERAL: NAD SKIN: Warm and dry. HEAD: Normocephalic. EYES: No scleral icterus. No injection or drainage. NECK: Supple, trachea midline. No JVD or lymphadenopathy. Permacath in place CARDIOVASCULAR: Regular rate and rhythm without murmurs, gallops, or rubs. RESPIRATORY: Breath sounds equal bilaterally. No accessory muscle use. GASTROINTESTINAL: Abdomen soft, non-tender, nondistended. MUSCULOSKELETAL: No cyanosis, or edema. BACK: Nontender without obvious deformity. No CVA tenderness. 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 s/p permacath placement. on HD as per nephrology. Continue prednisone and Cellcept might need vascular surgery evaluation for AV graft placement. 2- Cellulitis of left leg: Resolved 3-Thrombocytopenia due to cirrhosis-continue to monitor 4- Cirrhosis- likely due to alcohol- GI evaluated. 5- Anemia: Likely due to liver disease, renal disease, hypersplenism.- s/p EGD / colonoscopy with gastric erosions/ diverticulosis and internal/external hemorrhoids. continue PPI. 6- H/O ETOH abuse-counselled on drinking cessation. Problem Qualifiers (1) Acute renal failure: Qualified Code: N17.0 - Acute renal failure with tubular necrosis (2) Cirrhosis: Surendra Cooper MD Dec 09, 2016 10:54
--- NOTE | 2016-12-09 11:10 | HHI.NPPN ---
Subjective Complaints: Obesity General Problems: Edema, Hypertension Renal Failure: Acute History of Present Illness 46 y/o male who presented to ER with nausea/vomiting. Found to be in renal failure with Cr 17.2, BUN 249, K 5.4, CO2 13. We were consulted for further management. Additional Remarks Patient is alert, started passing some dark urine,eating well. Review of Systems General Constitutional: Fatigue Cardiovascular Cardiac: Edema Objective Data Data 12/08/16 12/09/16 19:00 07:00 Intake Total 1000 ml Output Total 100 ml Balance 1000 ml -100 ml Intake Oral 1000 ml Output Urine Total 100 ml # Voids 3 3 # Bowel Movements 2 Vital Signs Date Time Temp Pulse Resp B/P Pulse Ox O2 Delivery O2 Flow Rate FiO2 12/09/16 09:09 17 12/09/16 08:00 96.9 83 18 131/80 97 12/09/16 04:40 96.7 63 18 150/87 98 12/09/16 00:53 98.1 76 19 143/76 93 12/08/16 20:53 97.5 82 20 140/77 97 12/08/16 18:00 78 12/08/16 16:05 97.4 82 20 126/68 96 12/08/16 12:10 97.3 96 20 123/65 95 -: 12/06/16 0703 12/07/16 0739 Tubes & Lines: Perma-Cath Physical Exam General Appearance: Well Nourished, No Acute Distress, Comfortable Eyes Eye Exam: Pupils Equal Throat Throat Exam: Oral Mucosa [place] & Moist Pulmonary Resp Exam: Clear Bilaterally, Breath Sounds Equal, No Distress Cardiology CV Exam: Regular, Normal Sinus Rhythm, Good Perfusion Gastrointestinal/Abdomen GI Exam: Soft, Non-Tender, Bowel Sounds Present, Positive Bowel Movement Musculoskeletal MS Exam: Joints Intact, Normal Gait, Normal Tone Integumentary Skin Exam: Clear, Warm, Dry, Intact Extremeties Extremities Exam: Trace Edema Neurologic Neuro Exam: Alert, Awake, Oriented, Speech Clear Assessment/Plan Discussed Condition With: Patient Assessment Summary: SAL/Acute Renal Failure, Fluid/Volume Overload, Proteinuria Problem List: (1) Acute renal failure Plan: 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 The disease appears to be active. 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 Patient is aware. He has been placed on CellCept; continue prednisone 60 mg po daily x 30 days and then begin taper (beginning 12/22/16) dialysis initiated 11/19, he is on - schedule - he is due today urine output minimal, it had appeared urine production was increasing past few days Permcath in place, monitor function unlikely to have renal recovery, but monitor for signs continue Renvela, he is on high dose, to manage phosphorus avoid nephrotoxins, encouraged oral hydration/nutrition If senior care dialysis is necessary, [facility] facility would be likely facility, they are aware Vein mapping done , may require vascular evaluation for AVF placement during this hospitalization. Started passing more uirne. Check BMP in AM. Possible AVF next week if not better. 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 Platelet count has been stable, recheck in am No evidence of thrombotic microangiopathy. (3) Cirrhosis Plan: per findings on Ct scan long hx of heavy drinking GI following s/p EGD / colonoscopy: gastric erosions/ diverticulosis and internal/external hemorrhoids on PPI Plan Problem Qualifiers (1) Acute renal failure: Qualified Code: N17.0 - Acute renal failure with tubular necrosis (2) Cirrhosis: Glenny Williamson MD Dec 09, 2016 11:10
[2016-12-09] MEDS: ZOLPIDEM TARTRATE 5 MG TAB PO PRN (22:36)
[2016-12-10] VITALS (7 sets, daily range): BP systolic 113–152; BP diastolic 73–88; PULSE 70–87; RESP 18–22; TEMP 96.8–98.5; O2SAT 94–97
[2016-12-10] MEDS: ACETAMINOPHEN/HYDROcodone 325 MG/5 MG TAB PO PRN ×4 (03:58→23:05)
[2016-12-10] MEDS: LORazepam 1 MG TAB PO PRN ×3 (03:59→23:05)
[2016-12-10] MEDS: CHLORHEXIDINE GLUCONATE 2 % 1 PACK (2 CLOTHS) TOP SCH (04:00)
[2016-12-10] MEDS: MYCOPHENOLATE MOFETIL 500 MG TAB PO SCH ×2 (05:51→17:31)
[2016-12-10] MEDS: SEVELAMER CARBONATE 800 MG TAB PO SCH ×3 (08:00→17:30)
--- NOTE | 2016-12-10 08:50 | HHI.NPPN ---
Subjective Complaints: Obesity General Problems: Edema, Hypertension Renal Failure: Acute History of Present Illness 46 y/o male who presented to ER with nausea/vomiting. Found to be in renal failure with Cr 17.2, BUN 249, K 5.4, CO2 13. We were consulted for further management. Interval History Seen during dialysis. His urine output has improved. (Helen Gaspar) Review of Systems General Constitutional: Fatigue (Helen Gaspar) Cardiovascular Cardiac: Edema (Helen Gaspar) Objective Data Data 12/09/16 12/10/16 19:00 07:00 Intake Total 360 ml Output Total 200 ml 375 ml Balance 160 ml -375 ml Intake Oral 360 ml Output Urine Total 200 ml 375 ml # Voids 2 Vital Signs Date Time Temp Pulse Resp B/P Pulse Ox O2 Delivery O2 Flow Rate FiO2 12/10/16 04:00 98.0 70 22 152/88 94 12/10/16 00:00 97.4 75 20 144/82 95 12/09/16 22:00 89 12/09/16 20:00 96.5 80 16 157/79 97 12/09/16 18:00 75 12/09/16 17:39 19 12/09/16 16:00 97.6 77 18 133/81 95 12/09/16 12:00 97.4 79 18 133/78 99 12/09/16 09:00 77 (Helen Gaspar) -: 12/06/16 0703 12/07/16 0739 Tubes & Lines: Perma-Cath (Helen Gaspar) Physical Exam General Appearance: Well Nourished, No Acute Distress, Comfortable (Helen Gaspar) Eyes Eye Exam: Pupils Equal (Helen Gaspar) Throat Throat Exam: Oral Mucosa [place] & Moist (Helen Gaspar) Pulmonary Resp Exam: Clear Bilaterally, Breath Sounds Equal, No Distress (Helen Gaspar) Cardiology CV Exam: Regular, Normal Sinus Rhythm, Good Perfusion (Helen Gaspar) Gastrointestinal/Abdomen GI Exam: Soft, Non-Tender, Bowel Sounds Present, Positive Bowel Movement ( Helen Gaspar) Genitourinary Remarks anuric (Helen Gaspar) Musculoskeletal MS Exam: Joints Intact, Normal Gait, Normal Tone (Helen Gaspar) Integumentary Skin Exam: Clear, Warm, Dry, Intact (Helen Gaspar) Extremeties Extremities Exam: Trace Edema (Helen Gaspar) Neurologic Neuro Exam: Alert, Awake, Oriented, Speech Clear (Helen Gaspar) Assessment/Plan Discussed Condition With: Patient Assessment Summary: SAL/Acute Renal Failure, Fluid/Volume Overload, Proteinuria Problem List: (1) Acute renal failure Plan: 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 The disease appears to be active. 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 Patient is aware. He has been placed on CellCept; on prednisone 60 mg po daily x 30 days and then begin taper (beginning 12/22/16) dialysis initiated 11/19, he is on M-- schedule - seen during dialysis today on a 2K, 350 BFR, goal 3L UF urine output increasing, no longer oliguric although urine is very dark brown Permcath in place, monitor function ? renal recovery, monitor for signs continue Renvela, he is on high dose, recheck phosphorus in the morning avoid nephrotoxins, encouraged oral hydration/nutrition If jail dialysis is necessary, [facility] facility would be likely facility, they are aware Vein mapping done , likely vascular evaluation for AVF placement during this hospitalization. 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 recheck Platelet count tomorrow No evidence of thrombotic microangiopathy. 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 The disease appears to be active. 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 Patient is aware. He has been placed on CellCept; on prednisone 60 mg po daily x 30 days and then begin taper (beginning 12/22/16) dialysis initiated 11/19, he is on -- schedule - seen during dialysis today on a 2K, 350 BFR, goal 3L UF urine output increasing, no longer oliguric although urine is very dark brown Permcath in place, monitor function ? renal recovery, monitor for signs continue Renvela, he is on high dose, recheck phosphorus in the morning avoid nephrotoxins, encouraged oral hydration/nutrition If jail dialysis is necessary, [facility] facility would be likely facility, they are aware Vein mapping done , likely vascular evaluation for AVF placement during this hospitalization. 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 recheck Platelet count tomorrow No evidence of thrombotic microangiopathy. (3) Cirrhosis Plan: per findings on Ct scan long hx of heavy drinking GI following s/p EGD / colonoscopy: gastric erosions/ diverticulosis and internal/external hemorrhoids on PPI Plan patient was seen and examined. Seen during dialysis. He reports that his urine output has improved. Will continue to monitor. Repeat labs. If no significant improvement in GFR is seen this week, will consider transition to outpatient dialysis provided he has insurance. Also may consult vascular surgery for AVF placement. (Fredo Mayer MD) Problem Qualifiers (1) Acute renal failure: Qualified Code: N17.0 - Acute renal failure with tubular necrosis (2) Cirrhosis: Helen Gaspar Dec 10, 2016 08:50 Fredo Mayer MD Dec 10, 2016 10:09
--- NOTE | 2016-12-10 11:49 | HHI.PR ---
Subjective Remarks Follow-up Glomerulonephritis 12/07/16-patient seen and examined, with minimal urine output. No acute event overnight 12/08/16-patient seen and examined, stable, had hemodialysis yesterday. Patient would like if possible to have AV Fistula done in hospital prior to discharge 12/09/16-patient seen and examined; he claimed to have had 300+cc of UOP yesterday 12/10/16-patient seen and examined in dialysis center, states he's had at least close to 1 L of urine output in the past 24 hours. No other issues Objective Vitals Vital Signs Date Time Temp Pulse Resp B/P Pulse Ox O2 Delivery O2 Flow Rate FiO2 12/10/16 04:00 98.0 70 22 152/88 94 12/10/16 00:00 97.4 75 20 144/82 95 12/09/16 22:00 89 12/09/16 20:00 96.5 80 16 157/79 97 12/09/16 18:00 75 12/09/16 17:39 19 12/09/16 16:00 97.6 77 18 133/81 95 12/09/16 12:00 97.4 79 18 133/78 99 I/O 12/09/16 12/09/16 12/09/16 12/10/16 12/10/16 12/10/16 07:00 15:00 23:00 07:00 15:00 23:00 Intake Total 360 ml Output Total 100 ml 200 ml 375 ml Balance -100 ml 160 ml -375 ml Intake Oral 360 ml Output Urine Total 100 ml 200 ml 375 ml # Voids 3 2 # Bowel Movements 2 Result Diagram: 12/06/16 0703 12/07/16 0739 Objective Remarks GENERAL: NAD and supervisor locomotive to dialysis machine SKIN: Warm and dry. HEAD: Normocephalic. EYES: No scleral icterus. No injection or drainage. NECK: Supple, trachea midline. No JVD or lymphadenopathy. Permacath in place CARDIOVASCULAR: Regular rate and rhythm without murmurs, gallops, or rubs. RESPIRATORY: Breath sounds equal bilaterally. No accessory muscle use. GASTROINTESTINAL: Abdomen soft, non-tender, nondistended. MUSCULOSKELETAL: No cyanosis, or edema. BACK: Nontender without obvious deformity. No CVA tenderness. 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 s/p permacath placement. on HD as per nephrology. Receiving HD today. Patient advised to record all urine output Continue prednisone and Cellcept might need vascular surgery evaluation for AV graft placement. 2- Cellulitis of left leg: Resolved 3-Thrombocytopenia due to cirrhosis-continue to monitor 4- Cirrhosis- likely due to alcohol- GI evaluated. 5- Anemia: Likely due to liver disease, renal disease, hypersplenism.- s/p EGD / colonoscopy with gastric erosions/ diverticulosis and internal/external hemorrhoids. continue PPI. 6- H/O ETOH abuse-counselled on drinking cessation. Problem Qualifiers (1) Acute renal failure: Qualified Code: N17.0 - Acute renal failure with tubular necrosis (2) Cirrhosis: Surendra Cooper MD Dec 10, 2016 11:49
[2016-12-10] MEDS: SODIUM CHLORIDE 0.9% FLUSH 5 ML FLUSH FLUSH SCH ×2 (12:16→21:00)
[2016-12-10] MEDS: predniSONE 20 MG TAB PO SCH (12:17)
[2016-12-10] MEDS: PANTOPRAZOLE SOD 40 MG DELAYED RELEASE TAB PO SCH (12:17)
[2016-12-10] MEDS: ZOLPIDEM TARTRATE 5 MG TAB PO PRN (23:05)
[2016-12-11] VITALS (7 sets, daily range): BP systolic 121–152; BP diastolic 77–97; PULSE 67–98; RESP 18–20; TEMP 97.1–98; O2SAT 95–98
[2016-12-11] MEDS: ACETAMINOPHEN/HYDROcodone 325 MG/5 MG TAB PO PRN ×4 (03:16→21:50)
[2016-12-11] MEDS: LORazepam 1 MG TAB PO PRN ×4 (03:16→21:50)
[2016-12-11] MEDS: CHLORHEXIDINE GLUCONATE 2 % 1 PACK (2 CLOTHS) TOP SCH (04:30)
[2016-12-11] MEDS: MYCOPHENOLATE MOFETIL 500 MG TAB PO SCH ×2 (06:14→18:09)
[2016-12-11 09:11] LABS: BICARBONATE 29.5 MEQ/L (21.0-32.0); POTASSIUM 4.8 MEQ/L (3.5-5.1)
[2016-12-11] MEDS: predniSONE 20 MG TAB PO SCH (09:33)
[2016-12-11] MEDS: PANTOPRAZOLE SOD 40 MG DELAYED RELEASE TAB PO SCH (09:34)
[2016-12-11] MEDS: SEVELAMER CARBONATE 800 MG TAB PO SCH ×3 (09:34→16:19)
[2016-12-11] MEDS: SODIUM CHLORIDE 0.9% FLUSH 5 ML FLUSH FLUSH SCH ×2 (09:35→21:51)
--- NOTE | 2016-12-11 09:46 | HHI.PR ---
Subjective Remarks Follow-up Glomerulonephritis 12/07/16-patient seen and examined, with minimal urine output. No acute event overnight 12/08/16-patient seen and examined, stable, had hemodialysis yesterday. Patient would like if possible to have AV Fistula done in hospital prior to discharge 12/09/16-patient seen and examined; he claimed to have had 300+cc of UOP yesterday 12/10/16-patient seen and examined in dialysis center, states he's had at least close to 1 L of urine output in the past 24 hours. No other issues 12/11/16-patient seen and examined, no complaint. States he stated previously urine however not much so far this morning Objective Vitals Vital Signs Date Time Temp Pulse Resp B/P Pulse Ox O2 Delivery O2 Flow Rate FiO2 12/11/16 08: 98.0 92 18 152/90 97 12/11/16 04:00 97.1 67 20 134/77 95 12/11/16 00:00 97.7 74 18 143/91 97 12/10/16 20:00 98.5 80 18 143/76 96 12/10/16 19:26 75 12/10/16 14:00 98.5 87 20 126/80 97 12/10/16 12:30 96.8 74 20 113/73 96 I/O 12/10/16 12/10/16 12/10/16 12/11/16 12/11/16 12/11/16 07:00 15:00 23:00 07:00 15:00 23:00 Intake Total 700 ml Output Total 375 ml 3000 ml 700 ml 150 ml Balance -375 ml -3000 ml 0 ml -150 ml Intake Oral 700 ml Output Urine Total 375 ml 700 ml 150 ml Hemodialysis 3000 ml # Bowel Movements 1 Result Diagram: 12/11/16821 Objective Remarks GENERAL: NAD SKIN: Warm and dry. HEAD: Normocephalic. EYES: No scleral icterus. No injection or drainage. NECK: Supple, trachea midline. No JVD or lymphadenopathy. Permacath in place CARDIOVASCULAR: Regular rate and rhythm without murmurs, gallops, or rubs. RESPIRATORY: Breath sounds equal bilaterally. No accessory muscle use. GASTROINTESTINAL: Abdomen soft, non-tender, nondistended. MUSCULOSKELETAL: No cyanosis, or edema. BACK: Nontender without obvious deformity. No CVA tenderness. 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 s/p permacath placement. on HD as per nephrology. Patient advised to record all urine output Continue prednisone and Cellcept might need vascular surgery evaluation for AV graft placement. 2- Cellulitis of left leg: Resolved 3-Thrombocytopenia due to cirrhosis-continue to monitor 4- Cirrhosis- likely due to alcohol- GI evaluated. 5- Anemia: Likely due to liver disease, renal disease, hypersplenism.- s/p EGD / colonoscopy with gastric erosions/ diverticulosis and internal/external hemorrhoids. continue PPI. 6- H/O ETOH abuse-counselled on drinking cessation. Problem Qualifiers (1) Acute renal failure: Qualified Code: N17.0 - Acute renal failure with tubular necrosis (2) Cirrhosis: Surendra Cooper MD Dec 11, 2016 09:46
--- NOTE | 2016-12-11 12:12 | HHI.NPPN ---
Subjective Complaints: Obesity General Problems: Edema, Hypertension Renal Failure: Acute History of Present Illness 46 y/o male who presented to ER with nausea/vomiting. Found to be in renal failure with Cr 17.2, BUN 249, K 5.4, CO2 13. We were consulted for further management. Interval History Sitting up in chair. Urine output has increased but it is very dark, nephritic urine. 3 liter UF yesterday with dialysis. (Helen Gaspar) Review of Systems General Constitutional: Fatigue (Helen Gaspar) Cardiovascular Cardiac: Edema (Helen Gaspar) Objective Data Data 12/10/16 12/11/16 19:00 07:00 Intake Total 700 ml Output Total 3700 ml 150 ml Balance -3000 ml -150 ml Intake Oral 700 ml Output Urine Total 700 ml 150 ml Hemodialysis 3000 ml # Bowel Movements 1 Vital Signs Date Time Temp Pulse Resp B/P Pulse Ox O2 Delivery O2 Flow Rate FiO2 12/11/16 11:57 98.0 98 18 121/81 96 12/11/16 08:17 98.0 92 18 152/90 97 12/11/16 04:00 97.1 67 20 134/77 95 12/11/16 00:00 97.7 74 18 143/91 97 12/10/16 20:00 98.5 80 18 143/76 96 12/10/16 19:26 75 12/10/16 14:00 98.5 87 20 126/80 97 12/10/16 12:30 96.8 74 20 113/73 96 (Helen Gaspar) -: 12/11/16 0822 Tubes & Lines: Perma-Cath (Helen Gaspar) Physical Exam General Appearance: Well Nourished, No Acute Distress, Comfortable (Helen Gaspar) Eyes Eye Exam: Pupils Equal (Helen Gaspar) Throat Throat Exam: Oral Mucosa [place] & Moist (Helen Gaspar) Pulmonary Resp Exam: Clear Bilaterally, Breath Sounds Equal, No Distress (Helen Gaspar) Cardiology CV Exam: Regular, Normal Sinus Rhythm, Good Perfusion (Helen Gaspar) Gastrointestinal/Abdomen GI Exam: Soft, Non-Tender, Bowel Sounds Present, Positive Bowel Movement ( Helen Gaspar) Genitourinary Remarks anuric (Helen Gaspar) Musculoskeletal MS Exam: Joints Intact, Normal Gait, Normal Tone (Helen Gaspar) Integumentary Skin Exam: Clear, Warm, Dry, Intact (Helen Gaspar) Extremeties Extremities Exam: Trace Edema (Helen Gaspar) Neurologic Neuro Exam: Alert, Awake, Oriented, Speech Clear (Helen Gaspar) Assessment/Plan Discussed Condition With: Patient Assessment Summary: SAL/Acute Renal Failure, Fluid/Volume Overload, Proteinuria Problem List: (1) Acute renal failure Plan: 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 The disease appears to be active. 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 Patient is aware. He has been placed on CellCept daily; also on prednisone 60 mg po daily x 30 days and then begin taper (beginning 12/22/16) dialysis initiated 11/19, he is on M-- schedule - 3L UF yesterday urine output increasing, ? renal recovery urine very dark, nephritic urine obtain AM labs, evaluate need for continued dialysis, we may hold treatment if creatinine is stable or improved continue Renvela, he is on high dose, phosphorus elevated but improving avoid nephrotoxins, encouraged oral hydration/nutrition If emt intermediate dialysis is necessary, [facility] facility would be likely facility, they are aware Vein mapping done , likely vascular evaluation for AVF placement during this hospitalization. 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 plt count 50 No evidence of thrombotic microangiopathy. (3) Cirrhosis Plan: per findings on Ct scan long hx of heavy drinking GI following s/p EGD / colonoscopy: gastric erosions/ diverticulosis and internal/external hemorrhoids on PPI (Helen Gaspar) Plan patient was seen and examined. Urine output has improved. Repeat labs tomorrow before dialysis. Watch for signs of renal recovery. (Fredo Mayer MD) Problem Qualifiers (1) Acute renal failure: Qualified Code: N17.0 - Acute renal failure with tubular necrosis (2) Cirrhosis: Helen Gaspar Dec 11, 2016 12:12 Fredo Mayer MD Dec 11, 2016 17:31
[2016-12-12] VITALS: BP 125/69; PULSE 81; RESP 20; TEMP 97; O2SAT 94
[2016-12-12] MEDS: ACETAMINOPHEN/HYDROcodone 325 MG/5 MG TAB PO PRN ×5 (02:47→22:16)
[2016-12-12] MEDS: ALUMINUM/MAGNESIUM/SIMETH 30 ML CUP PO PRN ×2 (02:47→12:22)
[2016-12-12] MEDS: LORazepam 1 MG TAB PO PRN ×5 (02:47→22:16)
[2016-12-12 04:00] VITALS: BP 153/97; PULSE 75; RESP 20; TEMP 96.2; O2SAT 96
[2016-12-12] MEDS: CHLORHEXIDINE GLUCONATE 2 % 1 PACK (2 CLOTHS) TOP SCH (04:00)
[2016-12-12] MEDS: MYCOPHENOLATE MOFETIL 500 MG TAB PO SCH ×2 (06:02→17:44)
[2016-12-12] MEDS: predniSONE 20 MG TAB PO SCH (09:11)
[2016-12-12] MEDS: PANTOPRAZOLE SOD 40 MG DELAYED RELEASE TAB PO SCH (09:11)
[2016-12-12] MEDS: SODIUM CHLORIDE 0.9% FLUSH 5 ML FLUSH FLUSH SCH ×2 (09:11→21:00)
[2016-12-12] MEDS: SEVELAMER CARBONATE 800 MG TAB PO SCH ×3 (09:11→15:30)
[2016-12-12 09:14] VITALS: BP 131/85; PULSE 83; RESP 18; TEMP 97.1; O2SAT 95
[2016-12-12 09:46] LABS: BICARBONATE 27.2 MEQ/L (21.0-32.0); POTASSIUM 4.6 MEQ/L (3.5-5.1)
--- NOTE | 2016-12-12 10:56 | HHI.PR ---
Subjective Remarks Follow-up Glomerulonephritis 12/07/16-patient seen and examined, with minimal urine output. No acute event overnight 12/08/16-patient seen and examined, stable, had hemodialysis yesterday. Patient would like if possible to have AV Fistula done in hospital prior to discharge 12/09/16-patient seen and examined; he claimed to have had 300+cc of UOP yesterday 12/10/16-patient seen and examined in dialysis center, states he's had at least close to 1 L of urine output in the past 24 hours. No other issues 12/11/16-patient seen and examined, no complaint. States he stated previously urine however not much so far this morning 12/12/16-patient seen and examined, stable, positive for urine output almost 700 cc in the past 24 hours Objective Vitals Vital Signs Date Time Temp Pulse Resp B/P Pulse Ox O2 Delivery O2 Flow Rate FiO2 12/12/16 09:14 97.1 83 18 131/85 95 12/12/16 04:00 96.2 75 20 153/97 96 12/12/16 00:00 97.0 81 20 125/69 94 12/11/16 20:25 93 12/11/16 20:00 97.2 89 20 142/88 98 12/11/16 16:50 97.8 93 18 152/97 96 12/11/16 11:57 98.0 98 18 121/81 96 I/O 12/11/16 12/11/16 12/11/16 12/12/16 12/12/16 12/12/16 07:00 15:00 23:00 07:00 15:00 23:00 Intake Total 240 ml Output Total 150 ml 400 ml 200 ml 200 ml Balance -150 ml -160 ml -200 ml -200 ml Intake Oral 240 ml Output Urine Total 150 ml 400 ml 200 ml 200 ml Result Diagram: 12/12/16 0901 Objective Remarks GENERAL: NAD SKIN: Warm and dry. HEAD: Normocephalic. EYES: No scleral icterus. No injection or drainage. NECK: Supple, trachea midline. No JVD or lymphadenopathy. Permacath in place CARDIOVASCULAR: Regular rate and rhythm without murmurs, gallops, or rubs. RESPIRATORY: Breath sounds equal bilaterally. No accessory muscle use. GASTROINTESTINAL: Abdomen soft, non-tender, nondistended. MUSCULOSKELETAL: No cyanosis, or edema. BACK: Nontender without obvious deformity. No CVA tenderness. 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 s/p permacath placement. on HD as per nephrology. Patient advised to record all urine output. Dialysis planned for today 12/12/16 Continue prednisone and Cellcept might need vascular surgery evaluation for AV graft placement. 2- Cellulitis of left leg: Resolved 3-Thrombocytopenia due to cirrhosis-continue to monitor 4- Cirrhosis- likely due to alcohol- GI evaluated. 5- Anemia: Likely due to liver disease, renal disease, hypersplenism.- s/p EGD / colonoscopy with gastric erosions/ diverticulosis and internal/external hemorrhoids. continue PPI. 6- H/O ETOH abuse-counselled on drinking cessation. Problem Qualifiers (1) Acute renal failure: Qualified Code: N17.0 - Acute renal failure with tubular necrosis (2) Cirrhosis: Surendra Cooper MD Dec 12, 2016 10:56
[2016-12-12 13:14] VITALS: BP 153/89; PULSE 86; RESP 18; TEMP 97.3; O2SAT 96
--- NOTE | 2016-12-12 13:20 | HHI.NPPN ---
Subjective Complaints: Obesity General Problems: Edema, Hypertension Renal Failure: Acute History of Present Illness 46 y/o male who presented to ER with nausea/vomiting. Found to be in renal failure with Cr 17.2, BUN 249, K 5.4, CO2 13. We were consulted for further management. Interval History He is making a fair amount of urine. Creatinine essentially unchanged. (Helen Gaspar) Review of Systems General Constitutional: Fatigue (Helen Gaspar) Cardiovascular Cardiac: Edema (Helen Gaspar) Objective Data Data 12/11/16 12/12/16 19:00 07:00 Intake Total 240 ml Output Total 400 ml 400 ml Balance -160 ml -400 ml Intake Oral 240 ml Output Urine Total 400 ml 400 ml Vital Signs Date Time Temp Pulse Resp B/P Pulse Ox O2 Delivery O2 Flow Rate FiO2 12/12/16 13:14 97.3 86 18 153/89 96 12/12/16 09:14 97.1 83 18 131/85 95 12/12/16 04:00 96.2 75 20 153/97 96 12/12/16 00:00 97.0 81 20 125/69 94 12/11/16 20:25 93 12/11/16 20:00 97.2 89 20 142/88 98 12/11/16 16:50 97.8 93 18 152/97 96 (Helen Gaspar) -: 12/12/16 0901 Tubes & Lines: Perma-Cath (Helen Gaspar) Physical Exam General Appearance: Well Nourished, No Acute Distress, Comfortable, Obese (Helen Gaspar) Eyes Eye Exam: Pupils Equal (Helen Gaspar) Throat Throat Exam: Oral Mucosa [place] & Moist (Helen Gaspar) Pulmonary Resp Exam: Clear Bilaterally, Breath Sounds Equal, No Distress (Helen Gaspar) Cardiology CV Exam: Regular, Normal Sinus Rhythm, Good Perfusion (Helen Gaspar) Gastrointestinal/Abdomen GI Exam: Soft, Non-Tender, Bowel Sounds Present, Positive Bowel Movement ( Helen Gsapar) Genitourinary Remarks anuric (Helen Gaspar) Musculoskeletal MS Exam: Joints Intact, Normal Gait, Normal Tone (Helen Gaspar) Integumentary Skin Exam: Clear, Warm, Dry, Intact (Helen Gaspar) Extremeties Extremities Exam: Trace Edema (Helen Gaspar) Neurologic Neuro Exam: Alert, Awake, Oriented, Speech Clear (Helen Gaspar) Assessment/Plan Discussed Condition With: Patient Assessment Summary: SAL/Acute Renal Failure, Fluid/Volume Overload, Proteinuria Problem List: (1) Acute renal failure Plan: 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 The disease appears to be active. 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 Patient is aware. He has been placed on CellCept daily; also on prednisone 60 mg po daily x 30 days and then begin taper (beginning 12/22/16) dialysis initiated 11/19, he is on -- schedule he may be in renal recovery, urine output around 800 ml, monitor His creatinine has remained stable, therefore we will hold dialysis today and reevaluate need tomorrow continue Renvela, he is on high dose, phosphorus elevated but improving avoid nephrotoxins, encouraged oral hydration/nutrition If technician terminal and repeater dialysis is necessary, [facility] facility would be likely facility, they are aware Vein mapping done , may need vascular evaluation for AVF placement during this hospitalization. 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 plt count 50 No evidence of thrombotic microangiopathy. (3) Cirrhosis Plan: per findings on Ct scan long hx of heavy drinking GI following s/p EGD / colonoscopy: gastric erosions/ diverticulosis and internal/external hemorrhoids on PPI (Helen Gaspar) Plan patient was seen and examined. Urine output has improved, but urine is still quite dark, tea colored. We will hold dialysis today, repeat labs tomorrow. Most likely he will need dialysis tomorrow. (Fredo Mayer MD) Problem Qualifiers (1) Acute renal failure: Qualified Code: N17.0 - Acute renal failure with tubular necrosis (2) Cirrhosis: Helen Gaspar Dec 12, 2016 13:20 Fredo Mayer MD Dec 12, 2016 22:08
[2016-12-12 17:33] VITALS: BP 161/87; PULSE 91; RESP 18; TEMP 97; O2SAT 96
[2016-12-12 20:00] VITALS: BP 154/80; PULSE 77; RESP 20; TEMP 97; O2SAT 98
[2016-12-12] MEDS: ZOLPIDEM TARTRATE 5 MG TAB PO PRN (22:16)
[2016-12-13] VITALS: BP 155/85; PULSE 71; RESP 20; TEMP 98; O2SAT 96
[2016-12-13] MEDS: ACETAMINOPHEN/HYDROcodone 325 MG/5 MG TAB PO PRN ×5 (02:56→20:11)
[2016-12-13] MEDS: LORazepam 1 MG TAB PO PRN ×5 (02:56→20:10)
[2016-12-13] MEDS: CHLORHEXIDINE GLUCONATE 2 % 1 PACK (2 CLOTHS) TOP SCH (03:54)
[2016-12-13 04:00] VITALS: BP 140/83; PULSE 70; RESP 20; TEMP 97.1; O2SAT 95
[2016-12-13] MEDS: MYCOPHENOLATE MOFETIL 500 MG TAB PO SCH ×2 (06:12→18:25)
[2016-12-13 07:16] LABS: AUTOMATED NEUTROPHIL # 3.6 TH/MM3 (1.8-7.7); BASOPHIL % 0.1 % (0.0-2.0); EOSINOPHIL % 0.3 % (0.0-4.0); HEMATOCRIT 23.6 % (39.0-51.0); LYMPH % 14.7 % (9.0-44.0); LYMPHOCYTE # 0.8 TH/MM3 (1.0-4.8); MEAN CELL VOLUME 96.5 FL (80.0-100.0); MEAN CORPUSCULAR HEMOGLOBIN 32.4 PG (27.0-34.0); MEAN CORPUSCULAR HGB CONC 33.6 % (32.0-36.0); MONO % 17.1 % (0.0-8.0); NEUT % 67.8 % (16.0-70.0); PLATELET COUNT 42 TH/MM3 (150-450); RED BLOOD COUNT 2.45 MIL/MM3 (4.50-5.90); RED CELL DISTRIBUTION WIDTH 14.1 % (11.6-17.2); WHITE BLOOD COUNT 5.4 TH/MM3 (4.0-11.0)
[2016-12-13 07:39] LABS: HEMO FLAGS AUTO DIFF
[2016-12-13 07:47] LABS: BICARBONATE 26.2 MEQ/L (21.0-32.0); POTASSIUM 4.8 MEQ/L (3.5-5.1)
[2016-12-13] MEDS: SEVELAMER CARBONATE 800 MG TAB PO SCH ×3 (08:00→18:25)
[2016-12-13 08:03] VITALS: BP 143/79; PULSE 71; RESP 19; TEMP 97.8; O2SAT 97
[2016-12-13] MEDS: SODIUM CHLORIDE 0.9% FLUSH 5 ML FLUSH FLUSH SCH ×2 (08:18→20:12)
[2016-12-13] MEDS: PANTOPRAZOLE SOD 40 MG DELAYED RELEASE TAB PO SCH (08:18)
[2016-12-13] MEDS: predniSONE 20 MG TAB PO SCH (08:18)
[2016-12-13 08:28] LABS: SCAN/DIFF AUTO DIFF CONFIRMED
[2016-12-13 08:29] LABS: PLATELET ESTIMATE SMEAR LOW (NORMAL); PLATELET MORPHOLOGY NORMAL (NORMAL)
--- NOTE | 2016-12-13 08:30 | HHI.NPPN ---
Subjective Complaints: Obesity General Problems: Edema, Hypertension Renal Failure: Acute History of Present Illness 46 y/o male who presented to ER with nausea/vomiting. Found to be in renal failure with Cr 17.2, BUN 249, K 5.4, CO2 13. We were consulted for further management. Interval History Patient was seen and examined. His renal function may be improving. Urine output has improved. Review of Systems General Constitutional: Fatigue Cardiovascular Cardiac: Edema Objective Data Data 12/12/16 12/13/16 19:00 07:00 Intake Total 480 ml 480 ml Output Total 750 ml 550 ml Balance -270 ml -70 ml Intake Oral 480 ml 480 ml Output Urine Total 750 ml 550 ml # Bowel Movements 1 Vital Signs Date Time Temp Pulse Resp B/P Pulse Ox O2 Delivery O2 Flow Rate FiO2 12/13/16 08:03 97.8 71 19 143/79 97 12/13/16 04:00 97.1 70 20 140/83 95 12/13/16 00:00 98.0 71 20 155/85 96 12/12/16 20:00 97.0 77 20 154/80 98 12/12/16 17:33 97.0 91 18 161/87 96 12/12/16 13:14 97.3 86 18 153/89 96 12/12/16 09:14 97.1 83 18 131/85 95 -: 12/13/16 0626 12/13/16 0626 Tubes & Lines: Perma-Cath Physical Exam General Appearance: Well Nourished, No Acute Distress, Comfortable, Obese Eyes Eye Exam: Pupils Equal Throat Throat Exam: Oral Mucosa [place] & Moist Pulmonary Resp Exam: Clear Bilaterally, Breath Sounds Equal, No Distress Cardiology CV Exam: Regular, Normal Sinus Rhythm, Good Perfusion Gastrointestinal/Abdomen GI Exam: Soft, Non-Tender, Bowel Sounds Present, Positive Bowel Movement Musculoskeletal MS Exam: Joints Intact, Normal Gait, Normal Tone Integumentary Skin Exam: Clear, Warm, Dry, Intact Extremeties Extremities Exam: Trace Edema Neurologic Neuro Exam: Alert, Awake, Oriented, Speech Clear Assessment/Plan Discussed Condition With: Patient Assessment Summary: SAL/Acute Renal Failure, Fluid/Volume Overload, Proteinuria Problem List: (1) Acute renal failure Plan: 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 The disease appears to be active. 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 Patient is aware. He has been placed on CellCept daily; also on prednisone 60 mg po daily x 30 days and then begin taper (beginning 12/22/16) dialysis initiated 11/19. Dialysis suspended, urine output has improved. Repeat labs tomorrow. May need dialysis tomorrow just for clearance and no fluid removal. 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 plt count 50 No evidence of thrombotic microangiopathy. (3) Cirrhosis Plan: per findings on Ct scan long hx of heavy drinking GI following s/p EGD / colonoscopy: gastric erosions/ diverticulosis and internal/external hemorrhoids on PPI Problem Qualifiers (1) Acute renal failure: Qualified Code: N17.0 - Acute renal failure with tubular necrosis (2) Cirrhosis: Fredo Mayer MD Dec 13, 2016 08:30
--- NOTE | 2016-12-13 12:36 | HHI.PR ---
Subjective Remarks Follow-up Glomerulonephritis 12/07/16-patient seen and examined, with minimal urine output. No acute event overnight 12/08/16-patient seen and examined, stable, had hemodialysis yesterday. Patient would like if possible to have AV Fistula done in hospital prior to discharge 12/09/16-patient seen and examined; he claimed to have had 300+cc of UOP yesterday 12/10/16-patient seen and examined in dialysis center, states he's had at least close to 1 L of urine output in the past 24 hours. No other issues 12/11/16-patient seen and examined, no complaint. States he stated previously urine however not much so far this morning 12/12/16-patient seen and examined, stable, positive for urine output almost 700 cc in the past 24 hours 12/13/16-patient seen and examined, still producing urine, no other issues Objective Vitals Vital Signs Date Time Temp Pulse Resp B/P Pulse Ox O2 Delivery O2 Flow Rate FiO2 12/13/16 08:03 97.8 71 19 143/79 97 12/13/16 04:00 97.1 70 20 140/83 95 12/13/16 00:00 98.0 71 20 155/85 96 12/12/16 20:00 97.0 77 20 154/80 98 12/12/16 17:33 97.0 91 18 161/87 96 12/12/16 13:14 97.3 86 18 153/89 96 I/O 12/12/16 12/12/16 12/12/16 12/13/16 12/13/16 12/13/16 07:00 15:00 23:00 07:00 15:00 23:00 Intake Total 480 ml 360 ml 120 ml Output Total 200 ml 750 ml 350 ml 200 ml 350 ml Balance -200 ml -270 ml 10 ml -80 ml -350 ml Intake Oral 480 ml 360 ml 120 ml Output Urine Total 200 ml 750 ml 350 ml 200 ml 350 ml # Bowel Movements 0 1 Result Diagram: 12/13/1662512/13/16625 Objective Remarks GENERAL: NAD SKIN: Warm and dry. HEAD: Normocephalic. EYES: No scleral icterus. No injection or drainage. NECK: Supple, trachea midline. No JVD or lymphadenopathy. Permacath in place CARDIOVASCULAR: Regular rate and rhythm without murmurs, gallops, or rubs. RESPIRATORY: Breath sounds equal bilaterally. No accessory muscle use. GASTROINTESTINAL: Abdomen soft, non-tender, nondistended. MUSCULOSKELETAL: No cyanosis, or edema. BACK: Nontender without obvious deformity. No CVA tenderness. 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 s/p permacath placement. on HD as per nephrology. Patient advised to record all urine output. Dialysis planned for tomorrow 12/14/16 Continue prednisone 60 mg daily 30 days and Cellcept might need vascular surgery evaluation for AV graft placement. 2- Cellulitis of left leg: Resolved 3-Thrombocytopenia due to cirrhosis-continue to monitor 4- Cirrhosis- likely due to alcohol- GI evaluated. 5- Anemia: Likely due to liver disease, renal disease, hypersplenism.- s/p EGD / colonoscopy with gastric erosions/ diverticulosis and internal/external hemorrhoids. continue PPI. 6- H/O ETOH abuse-counselled on drinking cessation. Problem Qualifiers (1) Acute renal failure: Qualified Code: N17.0 - Acute renal failure with tubular necrosis (2) Cirrhosis: Surendra Cooper MD Dec 13, 2016 12:36
[2016-12-13 12:40] VITALS: BP 142/81; PULSE 92; RESP 20; TEMP 97.8; O2SAT 99
[2016-12-13 16:00] VITALS: BP 148/87; PULSE 79; RESP 17; TEMP 97.5; O2SAT 99
[2016-12-13 21:30] VITALS: BP 150/90; PULSE 77; RESP 17; TEMP 98.2; O2SAT 98
[2016-12-14] VITALS: BP 145/76; PULSE 67; RESP 18; TEMP 98.1; O2SAT 99
[2016-12-14] MEDS: LORazepam 1 MG TAB PO PRN ×5 (00:08→19:51)
[2016-12-14] MEDS: ACETAMINOPHEN/HYDROcodone 325 MG/5 MG TAB PO PRN ×5 (00:08→19:51)
[2016-12-14] MEDS: ZOLPIDEM TARTRATE 5 MG TAB PO PRN (00:08)
[2016-12-14] MEDS: CHLORHEXIDINE GLUCONATE 2 % 1 PACK (2 CLOTHS) TOP SCH (04:00)
[2016-12-14] MEDS: ALUMINUM/MAGNESIUM/SIMETH 30 ML CUP PO PRN (04:29)
[2016-12-14 05:30] VITALS: BP 150/91; PULSE 74; RESP 17; TEMP 98.2; O2SAT 100
[2016-12-14] MEDS: MYCOPHENOLATE MOFETIL 500 MG TAB PO SCH ×2 (05:33→16:53)
[2016-12-14 08:21] VITALS: BP 147/83; PULSE 114; RESP 19; TEMP 97.3; O2SAT 97
[2016-12-14 08:51] LABS: BICARBONATE 24.9 MEQ/L (21.0-32.0); POTASSIUM 4.5 MEQ/L (3.5-5.1)
[2016-12-14] MEDS: predniSONE 20 MG TAB PO SCH (08:52)
[2016-12-14] MEDS: PANTOPRAZOLE SOD 40 MG DELAYED RELEASE TAB PO SCH (08:52)
[2016-12-14] MEDS: SODIUM CHLORIDE 0.9% FLUSH 5 ML FLUSH FLUSH SCH ×2 (08:53→21:00)
[2016-12-14] MEDS: SEVELAMER CARBONATE 800 MG TAB PO SCH ×3 (08:59→16:52)
--- NOTE | 2016-12-14 10:53 | HHI.NPPN ---
Subjective Complaints: Obesity General Problems: Edema, Hypertension Renal Failure: Acute History of Present Illness 46 y/o male who presented to ER with nausea/vomiting. Found to be in renal failure with Cr 17.2, BUN 249, K 5.4, CO2 13. We were consulted for further management. Interval History Creatinine is better. Urine output has improved. (Helen Gaspar) Review of Systems General Constitutional: Fatigue (Helen Gaspar) Cardiovascular Cardiac: Edema (Helen Gaspar) Objective Data Data 12/13/16 12/14/16 19:00 07:00 Intake Total 360 ml 2200 ml Output Total 750 ml 800 ml Balance -390 ml 1400 ml Intake Oral 360 ml 2200 ml Output Urine Total 750 ml 800 ml # Bowel Movements 2 Vital Signs Date Time Temp Pulse Resp B/P Pulse Ox O2 Delivery O2 Flow Rate FiO2 12/14/16 09:51 18 12/14/16 08:21 97.3 114 19 147/83 97 12/14/16 05:30 98.2 74 17 150/91 100 12/14/16 00:00 98.1 67 18 145/76 99 12/13/16 21:30 98.2 77 17 150/90 98 12/13/16 16:00 97.5 79 17 148/87 99 12/13/16 12:40 97.8 92 20 142/81 99 (Helen Gaspar) -: 12/13/16 0626 12/14/16 0751 Tubes & Lines: Perma-Cath (Helen Gaspar) Physical Exam General Appearance: Well Nourished, No Acute Distress, Comfortable, Obese (Helen Gaspar) Eyes Eye Exam: Pupils Equal (Helen Gaspar) Throat Throat Exam: Oral Mucosa [place] & Moist (Helen Gaspar) Pulmonary Resp Exam: Clear Bilaterally, Breath Sounds Equal, No Distress (Helen Gaspar) Cardiology CV Exam: Regular, Normal Sinus Rhythm, Good Perfusion (Helen Gaspar) Gastrointestinal/Abdomen GI Exam: Soft, Non-Tender, Bowel Sounds Present, Positive Bowel Movement ( Helne Gaspar) Genitourinary Remarks anuric (Helen Gaspar) Musculoskeletal MS Exam: Joints Intact, Normal Gait, Normal Tone (Helen Gaspar) Integumentary Skin Exam: Clear, Warm, Dry, Intact (Helen Gaspar) Extremeties Extremities Exam: Trace Edema (Helen Gaspar) Neurologic Neuro Exam: Alert, Awake, Oriented, Speech Clear (Helen Gaspar) Assessment/Plan Discussed Condition With: Patient Assessment Summary: SAL/Acute Renal Failure, Fluid/Volume Overload, Proteinuria Problem List: (1) Acute renal failure Plan: 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 The disease appears to be active. 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 Patient is aware. He has been placed on CellCept daily; also on prednisone 60 mg po daily x 30 days and then begin taper (beginning 12/22/16) dialysis initiated 11/19. 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 plt count 50 No evidence of thrombotic microangiopathy. (3) Cirrhosis Plan: per findings on Ct scan long hx of heavy drinking GI following s/p EGD / colonoscopy: gastric erosions/ diverticulosis and internal/external hemorrhoids on PPI (Helen Gaspar) Plan patient was seen and examined. He is now non oliguric. Creatinine is improving. High BUN. Dialysis today, but no fluid removal. Continue to monitor labs daily. Dialysis prn. Start Prednisone taper next week after 1 month of 60mg of Prednisone. Continue CellCept. (Fredo Mayer MD) Problem Qualifiers (1) Acute renal failure: Qualified Code: N17.0 - Acute renal failure with tubular necrosis (2) Cirrhosis: Helen Gaspar Dec 14, 2016 10:53 Fredo Mayer MD Dec 14, 2016 15:02
[2016-12-14 12:03] VITALS: BP 145/87; PULSE 95; RESP 18; TEMP 96.8; O2SAT 95
--- NOTE | 2016-12-14 12:06 | HHI.PR ---
Subjective Remarks Follow-up Glomerulonephritis 12/07/16-patient seen and examined, with minimal urine output. No acute event overnight 12/08/16-patient seen and examined, stable, had hemodialysis yesterday. Patient would like if possible to have AV Fistula done in hospital prior to discharge 12/09/16-patient seen and examined; he claimed to have had 300+cc of UOP yesterday 12/10/16-patient seen and examined in dialysis center, states he's had at least close to 1 L of urine output in the past 24 hours. No other issues 12/11/16-patient seen and examined, no complaint. States he stated previously urine however not much so far this morning 12/12/16-patient seen and examined, stable, positive for urine output almost 700 cc in the past 24 hours 12/13/16-patient seen and examined, still producing urine, no other issues 12/14/16-patient seen and examined, improving creatinine and patient now with increased urine output. Plan for dialysis today Objective Vitals Vital Signs Date Time Temp Pulse Resp B/P Pulse Ox O2 Delivery O2 Flow Rate FiO2 12/14/16 12:03 96.8 95 18 145/87 95 12/14/16 09:51 18 12/14/16 08:21 97.3 114 19 147/83 97 12/14/16 05:30 98.2 74 17 150/91 100 12/14/16 00:00 98.1 67 18 145/76 99 12/13/16 21:30 98.2 77 17 150/90 98 12/13/16 16:00 97.5 79 17 148/87 99 12/13/16 12:40 97.8 92 20 142/81 99 I/O 12/13/16 12/13/16 12/13/16 12/14/16 12/14/16 12/14/16 07:00 15:00 23:00 07:00 15:00 23:00 Intake Total 120 ml 360 ml 1000 ml 1200 ml Output Total 200 ml 350 ml 800 ml 400 ml Balance -80 ml 10 ml 200 ml 800 ml Intake Oral 120 ml 360 ml 1000 ml 1200 ml Output Urine Total 200 ml 350 ml 800 ml 400 ml # Bowel Movements 1 0 2 Result Diagram: 12/13/16 0626 12/14/16 0751 Objective Remarks GENERAL: NAD SKIN: Warm and dry. HEAD: Normocephalic. EYES: No scleral icterus. No injection or drainage. NECK: Supple, trachea midline. No JVD or lymphadenopathy. Permacath in place CARDIOVASCULAR: Regular rate and rhythm without murmurs, gallops, or rubs. RESPIRATORY: Breath sounds equal bilaterally. No accessory muscle use. GASTROINTESTINAL: Abdomen soft, non-tender, nondistended. MUSCULOSKELETAL: No cyanosis, or edema. BACK: Nontender without obvious deformity. No CVA tenderness. 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 s/p permacath placement. on HD as per nephrology. Patient advised to record all urine output. Dialysis planned for today 12/14/16 Continue prednisone 60 mg daily 30 days ( need to taper after 12/22/16) and Cellcept might need vascular surgery evaluation for AV graft placement. 2- Cellulitis of left leg: Resolved 3-Thrombocytopenia due to cirrhosis-continue to monitor 4- Cirrhosis- likely due to alcohol- GI evaluated. 5- Anemia: Likely due to liver disease, renal disease, hypersplenism.- s/p EGD / colonoscopy with gastric erosions/ diverticulosis and internal/external hemorrhoids. continue PPI. 6- H/O ETOH abuse-counselled on drinking cessation. Problem Qualifiers (1) Acute renal failure: Qualified Code: N17.0 - Acute renal failure with tubular necrosis (2) Cirrhosis: Surendra Cooper MD Dec 14, 2016 12:06
[2016-12-14] MEDS: SODIUM CHLOR 0.9% 1000 ML INJ 1,000 ML IV PRN (12:49)
[2016-12-14] MEDS: GENTAMICIN SULFATE (DIALYSIS USE ONLY) 20 MG/2 ML VIAL IV PRN (12:49)
[2016-12-14] MEDS: HEPARIN SODIUM - IV 10,000 UNITS/10 ML VIAL PRN (12:49)
[2016-12-14 16:05] VITALS: BP 163/97; PULSE 84; RESP 18; TEMP 97.6; O2SAT 99
[2016-12-14 21:40] VITALS: BP 149/80; PULSE 88; RESP 17; TEMP 99; O2SAT 96
[2016-12-15] VITALS: BP 140/74; PULSE 80; RESP 17; TEMP 98.8; O2SAT 97
[2016-12-15] MEDS: LORazepam 1 MG TAB PO PRN ×6 (02:32→22:52)
[2016-12-15] MEDS: ACETAMINOPHEN/HYDROcodone 325 MG/5 MG TAB PO PRN ×6 (02:33→22:53)
[2016-12-15] MEDS: CHLORHEXIDINE GLUCONATE 2 % 1 PACK (2 CLOTHS) TOP SCH (04:00)
[2016-12-15 05:30] VITALS: BP 138/70; PULSE 88; RESP 18; TEMP 97.7; O2SAT 98
[2016-12-15] MEDS: MYCOPHENOLATE MOFETIL 500 MG TAB PO SCH ×2 (06:48→18:32)
[2016-12-15 07:05] LABS: BICARBONATE 28.7 MEQ/L (21.0-32.0); POTASSIUM 4.6 MEQ/L (3.5-5.1)
[2016-12-15 08:00] VITALS: BP 146/90; PULSE 76; RESP 18; TEMP 98.1; O2SAT 96
[2016-12-15] MEDS: predniSONE 20 MG TAB PO SCH (08:53)
[2016-12-15] MEDS: PANTOPRAZOLE SOD 40 MG DELAYED RELEASE TAB PO SCH (08:53)
[2016-12-15] MEDS: SEVELAMER CARBONATE 800 MG TAB PO SCH ×3 (08:54→18:33)
[2016-12-15] MEDS: SODIUM CHLORIDE 0.9% FLUSH 5 ML FLUSH FLUSH SCH ×2 (08:55→21:00)
--- NOTE | 2016-12-15 10:44 | HHI.PR ---
Subjective Remarks Patient seen in follow-up for renal failure. Reports that he is feeling better. Urinating okay. He is drinking plenty of fluid. He complained of some anal irritation with BM. Objective Vitals Vital Signs Date Time Temp Pulse Resp B/P Pulse Ox O2 Delivery O2 Flow Rate FiO2 12/15/16 08:00 98.1 76 18 146/90 96 12/15/16 05:30 97.7 88 18 138/70 98 12/15/16 00:00 98.8 80 17 140/74 97 12/14/16 21:40 99.0 88 17 149/80 96 12/14/16 20:51 18 12/14/16 16:05 97.6 84 18 163/97 99 12/14/16 12:03 96.8 95 18 145/87 95 I/O 12/14/16 12/14/16 12/14/16 12/15/16 12/15/16 12/15/16 07:00 15:00 23:00 07:00 15:00 23:00 Intake Total 1200 ml 1120 ml 1000 ml Output Total 400 ml 0 ml 500 ml 400 ml Balance 800 ml 0 ml 620 ml 600 ml Intake Oral 1200 ml 1120 ml 1000 ml Output Urine Total 400 ml 500 ml 400 ml Hemodialysis 0 ml # Bowel Movements 2 0 0 Result Diagram: 12/13/16 0626 12/15/16 0514 Imaging Last Impressions Upper Extremity Ultrasound 12/01/16 0000 Signed Impressions: Service Date/Time: Thursday, December 01, 2016 18:48 - CONCLUSION: 1. No deep venous thrombosis identified. Limited evaluation of right subclavian vein due to [place]-d-Hyvp. Joseph Marti MD Catheter Placement X-Ray 11/26/16 0940 Signed Impressions: Service Date/Time: Saturday, November 26, 2016 14:33 - CONCLUSION: Uncomplicated PermaCath placement as above. Hong Huffman MD Renal Biopsy CT 11/22/16 0000 Signed Impressions: Service Date/Time: October 11:57 - CONCLUSION: Uncomplicated CT guided biopsy of the right lower pole kidney. Derek Monet MD Renal Ultrasound 11/19/16 0000 Signed Impressions: Service Date/Time: Saturday, November 19, 2016 09:26 - CONCLUSION: Normal examination. Garrett Lopes MD Radiology Special Procedure 11/19/16 0000 Signed Impressions: Service Date/Time: Saturday, November 19, 2016 00:00 - CONCLUSION: Hemostasis around the catheter insertion site was achieved. The patient tolerated the procedure well. Horace Zapata MD Abdomen/Pelvis CT 11/19/16 0000 Signed Impressions: Service Date/Time: Saturday, November 19, 2016 13:56 - CONCLUSION: Stable findings of cirrhosis and splenomegaly with varices. Otherwise negative. Garrett Lopes MD Chest X-Ray 11/18/16 1628 Signed Impressions: Service Date/Time: Friday, November 18, 2016 16:49 - CONCLUSION: Cardiomegaly. Derek Rider MD Objective Remarks GENERAL: Obese male in no apparent distress. CARDIOVASCULAR: Normal rate and regular rhythm without murmurs, gallops, or rubs. RESPIRATORY: Good respiratory efforts. Breath sounds equal and clear to auscultation bilaterally. GASTROINTESTINAL: Abdomen soft, non-tender, non-distended. Normal active bowel sounds MUSCULOSKELETAL: Extremities without cyanosis, or edema. NEURO: Alert & Oriented x4 to person, place, time, situation. Moves all ext x4 PSYCH: Appropriate mood and affect. 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 s/p PermCath placement. on HD as per nephrology. Renal functions and urinary output improving. Last Dialysis 12/14/16. Dialysis now PRN, follow for renal recovery Continue prednisone 60 mg daily 30 days ( need to taper after 12/22/16) and Cellcept Cellulitis of left leg: Resolved Thrombocytopenia due to cirrhosis-continue to monitor Cirrhosis- likely due to alcohol- GI following. Need outpatient follow up. Anemia: Stable. Likely due to liver disease, renal disease, hypersplenism.- s/p EGD / colonoscopy with gastric erosions/ diverticulosis and internal/external hemorrhoids. continue PPI. Sitz bath H/O ETOH abuse-counselled on drinking cessation. Problem Qualifiers (1) Acute renal failure: Qualified Code: N17.0 - Acute renal failure with tubular necrosis (2) Cirrhosis: Marlyn Mcwilliams MD Dec 15, 2016 10:44
[2016-12-15 12:00] VITALS: BP 166/89; PULSE 92; RESP 18; TEMP 97.6; O2SAT 99
--- NOTE | 2016-12-15 14:18 | HHI.NPPN ---
Subjective Complaints: Obesity General Problems: Edema, Hypertension Renal Failure: Acute History of Present Illness 46 y/o male who presented to ER with nausea/vomiting. Found to be in renal failure with Cr 17.2, BUN 249, K 5.4, CO2 13. We were consulted for further management. Review of Systems General Constitutional: Fatigue Cardiovascular Cardiac: Edema Objective Data Data 12/14/16 12/15/16 19:00 07:00 Intake Total 120 ml 2000 ml Output Total 0 ml 900 ml Balance 120 ml 1100 ml Intake Oral 120 ml 2000 ml Output Urine Total 900 ml Hemodialysis 0 ml # Bowel Movements 0 Vital Signs Date Time Temp Pulse Resp B/P Pulse Ox O2 Delivery O2 Flow Rate FiO2 12/15/16 12:00 97.6 92 18 166/89 99 12/15/16 08:00 98.1 76 18 146/90 96 12/15/16 05:30 97.7 88 18 138/70 98 12/15/16 00:00 98.8 80 17 140/74 97 12/14/16 21:40 99.0 88 17 149/80 96 12/14/16 20:51 18 12/14/16 16:05 97.6 84 18 163/97 99 -: 12/13/16 0626 12/15/16 0514 Tubes & Lines: Perma-Cath Physical Exam General Appearance: Well Nourished, No Acute Distress, Comfortable, Obese Eyes Eye Exam: Pupils Equal Throat Throat Exam: Oral Mucosa [place] & Moist Pulmonary Resp Exam: Clear Bilaterally, Breath Sounds Equal, No Distress Cardiology CV Exam: Regular, Normal Sinus Rhythm, Good Perfusion Gastrointestinal/Abdomen GI Exam: Soft, Non-Tender, Bowel Sounds Present, Positive Bowel Movement Musculoskeletal MS Exam: Joints Intact, Normal Gait, Normal Tone Integumentary Skin Exam: Clear, Warm, Dry, Intact Extremeties Extremities Exam: Trace Edema Neurologic Neuro Exam: Alert, Awake, Oriented, Speech Clear Assessment/Plan Discussed Condition With: Patient Assessment Summary: SAL/Acute Renal Failure, Fluid/Volume Overload, Proteinuria Problem List: (1) Acute renal failure Plan: 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 The disease appears to be active. 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 Patient is aware. He has been placed on CellCept daily; also on prednisone 60 mg po daily x 30 days and then begin taper (beginning 12/22/16) dialysis initiated 11/19. He was on -- dialysis HD done yesterday Improved Cr further dialysis depend on his progress (2) Thrombocytopenia Plan: Likely due to cirrhosis, alcohol induced bone marrow suppression and hypersplenism. plt count 50 No evidence of thrombotic microangiopathy. (3) Cirrhosis Plan: per findings on Ct scan long hx of heavy drinking GI following s/p EGD / colonoscopy: gastric erosions/ diverticulosis and internal/external hemorrhoids on PPI Problem Qualifiers (1) Acute renal failure: Qualified Code: N17.0 - Acute renal failure with tubular necrosis (2) Cirrhosis: Yas Welsh MD Dec 15, 2016 14:18
[2016-12-15] MEDS ORDERED: DOCUSATE SODIUM 50 MG/SENNA 8.6 MG TAB PO PRN (15:45)
[2016-12-15 16:00] VITALS: BP 157/92; PULSE 86; RESP 18; TEMP 97.2; O2SAT 98
[2016-12-15 20:25] VITALS: BP 146/86; PULSE 75; RESP 20; TEMP 97.2; O2SAT 99
[2016-12-15] MEDS: ZOLPIDEM TARTRATE 5 MG TAB PO PRN (22:52)
[2016-12-16 00:42] VITALS: BP 148/95; PULSE 83; RESP 20; TEMP 97.2; O2SAT 97
[2016-12-16] MEDS: CHLORHEXIDINE GLUCONATE 2 % 1 PACK (2 CLOTHS) TOP SCH (04:00)
[2016-12-16 04:08] VITALS: BP 121/78; PULSE 84; RESP 18; TEMP 97.6; O2SAT 96
[2016-12-16] MEDS: ALUMINUM/MAGNESIUM/SIMETH 30 ML CUP PO PRN (04:20)
[2016-12-16] MEDS: LORazepam 1 MG TAB PO PRN ×5 (04:20→21:44)
[2016-12-16] MEDS: ACETAMINOPHEN/HYDROcodone 325 MG/5 MG TAB PO PRN ×5 (04:20→21:45)
[2016-12-16] MEDS: MYCOPHENOLATE MOFETIL 500 MG TAB PO SCH ×2 (05:46→17:09)
[2016-12-16 08:00] VITALS: BP 138/90; PULSE 82; RESP 18; TEMP 97.6; O2SAT 94
[2016-12-16 08:17] LABS: HEMATOCRIT 25.8 % (39.0-51.0); MEAN CORPUSCULAR HEMOGLOBIN 33.3 PG (27.0-34.0); MEAN CORPUSCULAR HGB CONC 34.7 % (32.0-36.0); PLATELET COUNT 71 TH/MM3 (150-450); RED BLOOD COUNT 2.69 MIL/MM3 (4.50-5.90); WHITE BLOOD COUNT 6.3 TH/MM3 (4.0-11.0)
[2016-12-16 08:22] LABS: REVIEW FLAG FINAL
[2016-12-16] MEDS: PANTOPRAZOLE SOD 40 MG DELAYED RELEASE TAB PO SCH (08:27)
[2016-12-16] MEDS: SEVELAMER CARBONATE 800 MG TAB PO SCH ×3 (08:27→17:00)
[2016-12-16] MEDS: predniSONE 20 MG TAB PO SCH (08:28)
[2016-12-16] MEDS: SODIUM CHLORIDE 0.9% FLUSH 5 ML FLUSH FLUSH SCH ×2 (08:30→21:00)
[2016-12-16 09:22] LABS: BICARBONATE 25.5 MEQ/L (21.0-32.0); POTASSIUM 4.3 MEQ/L (3.5-5.1)
--- NOTE | 2016-12-16 09:52 | HHI.PR ---
Subjective Remarks Patient had pizza last night which caused him to have diarrhea. Had normal BM this morning. No new complaints. No problems urinating. Objective Vitals Vital Signs Date Time Temp Pulse Resp B/P Pulse Ox O2 Delivery O2 Flow Rate FiO2 12/16/16 08:00 97.6 82 18 138/90 94 12/16/16 04:08 97.6 84 18 121/78 96 12/16/16 00:42 97.2 83 20 148/95 97 12/15/16 20:25 97.2 75 20 146/86 99 12/15/16 16:00 97.2 86 18 157/92 98 12/15/16 12:00 97.6 92 18 166/89 99 I/O 12/15/16 12/15/16 12/15/16 12/16/16 12/16/16 12/16/16 07:00 15:00 23:00 07:00 15:00 23:00 Intake Total 1000 ml 480 ml 480 ml Output Total 400 ml 200 ml 400 ml 450 ml Balance 600 ml 280 ml 80 ml -450 ml Intake Oral 1000 ml 480 ml 480 ml Output Urine Total 400 ml 200 ml 400 ml 450 ml # Bowel Movements 0 1 1 Result Diagram: 12/16/1671912/16/1620 Objective Remarks GENERAL: Obese male in no apparent distress. CARDIOVASCULAR: Normal rate and regular rhythm without murmurs, gallops, or rubs. RESPIRATORY: Good respiratory efforts. Breath sounds equal and clear to auscultation bilaterally. GASTROINTESTINAL: Abdomen soft, non-tender, non-distended. Normal active bowel sounds MUSCULOSKELETAL: Extremities without cyanosis, or edema. NEURO: Alert & Oriented x4 to person, place, time, situation. Moves all ext x4 PSYCH: Appropriate mood and affect. 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 s/p PermCath placement. on HD as per nephrology. Renal functions and urinary output improving. Last Dialysis 12/14/16. Dialysis now PRN, follow for renal recovery. Follow-up BMP in the morning. Continue prednisone 60 mg daily 30 days ( need to taper after 12/22/16) and Cellcept Cellulitis of left leg: Resolved Thrombocytopenia due to cirrhosis-continue to monitor Cirrhosis- likely due to alcohol- GI following. Need outpatient follow up. Anemia: Stable. Likely due to liver disease, renal disease, hypersplenism.- s/p EGD / colonoscopy with gastric erosions/ diverticulosis and internal/external hemorrhoids. continue PPI. Sitz bath H/O ETOH abuse-counselled on drinking cessation. Problem Qualifiers (1) Acute renal failure: Qualified Code: N17.0 - Acute renal failure with tubular necrosis (2) Cirrhosis: Marlyn Mcwilliams MD Dec 16, 2016 09:51
[2016-12-16 16:00] VITALS: BP 148/104; PULSE 86; RESP 19; TEMP 97.4; O2SAT 96
--- NOTE | 2016-12-16 16:18 | HHI.NPPN ---
Subjective Complaints: Obesity General Problems: Edema, Hypertension Renal Failure: Acute History of Present Illness 46 y/o male who presented to ER with nausea/vomiting. Found to be in renal failure with Cr 17.2, BUN 249, K 5.4, CO2 13. We were consulted for further management. Review of Systems General Constitutional: Fatigue Cardiovascular Cardiac: Edema Objective Data Data 12/15/16 12/16/16 19:00 07:00 Intake Total 480 ml 480 ml Output Total 200 ml 850 ml Balance 280 ml -370 ml Intake Oral 480 ml 480 ml Output Urine Total 200 ml 850 ml # Bowel Movements 2 Vital Signs Date Time Temp Pulse Resp B/P Pulse Ox O2 Delivery O2 Flow Rate FiO2 12/16/16 08:00 97.6 82 18 138/90 94 12/16/16 04:08 97.6 84 18 121/78 96 12/16/16 00:42 97.2 83 20 148/95 97 12/15/16 20:25 97.2 75 20 146/86 99 -: 12/16/16 0720 12/16/16 0720 Tubes & Lines: Perma-Cath Physical Exam General Appearance: Well Nourished, No Acute Distress, Comfortable, Obese Eyes Eye Exam: Pupils Equal Throat Throat Exam: Oral Mucosa [place] & Moist Pulmonary Resp Exam: Clear Bilaterally, Breath Sounds Equal, No Distress Cardiology CV Exam: Regular, Normal Sinus Rhythm, Good Perfusion Gastrointestinal/Abdomen GI Exam: Soft, Non-Tender, Bowel Sounds Present, Positive Bowel Movement Musculoskeletal MS Exam: Joints Intact, Normal Gait, Normal Tone Integumentary Skin Exam: Clear, Warm, Dry, Intact Extremeties Extremities Exam: Trace Edema Neurologic Neuro Exam: Alert, Awake, Oriented, Speech Clear Assessment/Plan Discussed Condition With: Patient Assessment Summary: SAL/Acute Renal Failure, Fluid/Volume Overload, Proteinuria Problem List: (1) Acute renal failure Plan: 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 The disease appears to be active. 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 Patient is aware. He has been placed on CellCept daily had diarrhea and wanted to have Imodium, it is likely due to CellCept; also on prednisone 60 mg po daily x 30 days and then begin taper (beginning 12/22/16) dialysis initiated 11/19. He was on M-W- dialysis HD done yesterday Cr stable next HD depends on BMP further dialysis depend on his progress (2) Thrombocytopenia Plan: Likely due to cirrhosis, alcohol induced bone marrow suppression and hypersplenism. plt count 50 No evidence of thrombotic microangiopathy. (3) Cirrhosis Plan: per findings on Ct scan long hx of heavy drinking GI following s/p EGD / colonoscopy: gastric erosions/ diverticulosis and internal/external hemorrhoids on PPI Problem Qualifiers (1) Acute renal failure: Qualified Code: N17.0 - Acute renal failure with tubular necrosis (2) Cirrhosis: Yas Welsh MD Dec 16, 2016 16:18
[2016-12-16] MEDS: LOPERAMIDE HCL 2 MG CAP PO PRN (17:09)
[2016-12-16 20:25] VITALS: BP 151/95; PULSE 93; RESP 20; TEMP 97.2; O2SAT 98
[2016-12-17 00:24] VITALS: BP 169/98; PULSE 95; RESP 20; TEMP 97.3; O2SAT 98
[2016-12-17] MEDS: LOPERAMIDE HCL 2 MG CAP PO PRN (01:18)
[2016-12-17] MEDS: LORazepam 1 MG TAB PO PRN ×6 (01:19→21:54)
[2016-12-17] MEDS: ZOLPIDEM TARTRATE 5 MG TAB PO PRN ×2 (01:19→21:54)
[2016-12-17] MEDS: ACETAMINOPHEN/HYDROcodone 325 MG/5 MG TAB PO PRN ×6 (01:19→21:53)
[2016-12-17] MEDS: CHLORHEXIDINE GLUCONATE 2 % 1 PACK (2 CLOTHS) TOP SCH (04:00)
[2016-12-17 04:25] VITALS: BP 149/87; PULSE 74; RESP 18; TEMP 97.2; O2SAT 98
[2016-12-17] MEDS: MYCOPHENOLATE MOFETIL 500 MG TAB PO SCH ×2 (05:28→17:29)
[2016-12-17 08:00] LABS: HEMATOCRIT 28.3 % (39.0-51.0); MEAN CELL VOLUME 96.6 FL (80.0-100.0); MEAN CORPUSCULAR HEMOGLOBIN 32.8 PG (27.0-34.0); MEAN CORPUSCULAR HGB CONC 33.9 % (32.0-36.0); PLATELET COUNT 92 TH/MM3 (150-450); RED BLOOD COUNT 2.93 MIL/MM3 (4.50-5.90); RED CELL DISTRIBUTION WIDTH 14.4 % (11.6-17.2); WHITE BLOOD COUNT 8.1 TH/MM3 (4.0-11.0)
[2016-12-17 08:09] LABS: REVIEW FLAG FINAL
[2016-12-17 08:16] VITALS: BP 134/97; PULSE 72; RESP 20; TEMP 96.9; O2SAT 100
[2016-12-17 08:22] LABS: BICARBONATE 25.8 MEQ/L (21.0-32.0); POTASSIUM 4.5 MEQ/L (3.5-5.1)
[2016-12-17] MEDS: PANTOPRAZOLE SOD 40 MG DELAYED RELEASE TAB PO SCH (09:26)
[2016-12-17] MEDS: predniSONE 20 MG TAB PO SCH (09:26)
[2016-12-17] MEDS: SODIUM CHLORIDE 0.9% FLUSH 5 ML FLUSH FLUSH SCH ×2 (09:27→21:00)
[2016-12-17] MEDS: SEVELAMER CARBONATE 800 MG TAB PO SCH ×3 (09:27→17:29)
[2016-12-17 11:57] VITALS: BP 145/87; PULSE 88; RESP 20; TEMP 97.7; O2SAT 100
--- NOTE | 2016-12-17 15:55 | HHI.PR ---
Subjective Remarks Patient reports that he is feeling okay. He states that he urinated 450 cc within a couple hours this morning. He is anxious to know what the next step is. His creatinine is slightly improved to 5.27 but BUN increased to 120. Objective Vitals Vital Signs Date Time Temp Pulse Resp B/P Pulse Ox O2 Delivery O2 Flow Rate FiO2 12/17/16 11:57 97.7 88 20 145/87 100 12/17/16 08:16 96.9 72 20 134/97 100 12/17/16 04:25 97.2 74 18 149/87 98 12/17/16 00:24 97.3 95 20 169/98 98 12/16/16 20:25 97.2 93 20 151/95 98 12/16/16 16:00 97.4 86 19 148/104 96 I/O 12/16/16 12/16/16 12/16/16 12/17/16 12/17/16 12/17/16 07:00 15:00 23:00 07:00 15:00 23:00 Intake Total 480 ml 360 ml Output Total 450 ml 800 ml 500 ml 1050 ml Balance -450 ml -800 ml -20 ml -690 ml Intake Oral 480 ml 360 ml Output Urine Total 450 ml 800 ml 500 ml 1050 ml # Voids 2 # Bowel Movements 3 Result Diagram: 12/17/1671912/17/16719 Objective Remarks GENERAL: Obese male in no apparent distress. CARDIOVASCULAR: Normal rate and regular rhythm without murmurs, gallops, or rubs. RESPIRATORY: Good respiratory efforts. Breath sounds equal and clear to auscultation bilaterally. GASTROINTESTINAL: Abdomen soft, non-tender, non-distended. Normal active bowel sounds MUSCULOSKELETAL: Extremities without cyanosis, or edema. NEURO: Alert & Oriented x4 to person, place, time, situation. Moves all ext x4 PSYCH: Somewhat anxious. 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 s/p PermCath placement. on HD as per nephrology. Renal functions and urinary output improving. Last Dialysis 12/14/16. Dialysis now PRN, follow for renal recovery. Creatinine improved to 5.27 but BUN is up to 120. Further plans per nephrology. Continue prednisone 60 mg daily 30 days ( need to taper after 12/22/16) and Cellcept Cellulitis of left leg: Resolved Thrombocytopenia due to cirrhosis-continue to monitor Cirrhosis- likely due to alcohol- GI following. Need outpatient follow up. Anemia: Stable. Likely due to liver disease, renal disease, hypersplenism.- s/p EGD / colonoscopy with gastric erosions/ diverticulosis and internal/external hemorrhoids. continue PPI. Sitz bath H/O ETOH abuse-counselled on drinking cessation. Problem Qualifiers (1) Acute renal failure: Qualified Code: N17.0 - Acute renal failure with tubular necrosis (2) Cirrhosis: Marlyn Mcwilliams MD Dec 17, 2016 15:55
[2016-12-17 16:31] VITALS: BP 151/87; PULSE 83; RESP 20; TEMP 96.4; O2SAT 99
--- NOTE | 2016-12-17 19:13 | HHI.NPPN ---
Subjective Complaints: Obesity General Problems: Edema, Hypertension Renal Failure: Acute History of Present Illness 46 y/o male who presented to ER with nausea/vomiting. Found to be in renal failure with Cr 17.2, BUN 249, K 5.4, CO2 13. We were consulted for further management. Additional Remarks Patient is alert, no SOB, eating well. Review of Systems General Constitutional: Fatigue Cardiovascular Cardiac: Edema Objective Data Data 12/16/16 12/17/16 19:00 07:00 Intake Total 480 ml Output Total 1000 ml 300 ml Balance -1000 ml 180 ml Intake Oral 480 ml Output Urine Total 1000 ml 300 ml # Voids 2 # Bowel Movements 3 Vital Signs Date Time Temp Pulse Resp B/P Pulse Ox O2 Delivery O2 Flow Rate FiO2 12/17/16 16:31 96.4 83 20 151/87 99 12/17/16 11:57 97.7 88 20 145/87 100 12/17/16 08:16 96.9 72 20 134/97 100 12/17/16 04:25 97.2 74 18 149/87 98 12/17/16 00:24 97.3 95 20 169/98 98 12/16/16 20:25 97.2 93 20 151/95 98 -: 12/17/16 0720 12/17/16 0720 Tubes & Lines: Perma-Cath Physical Exam General Appearance: Well Nourished, No Acute Distress, Comfortable, Obese Eyes Eye Exam: Pupils Equal Throat Throat Exam: Oral Mucosa [place] & Moist Pulmonary Resp Exam: Clear Bilaterally, Breath Sounds Equal, No Distress Cardiology CV Exam: Regular, Normal Sinus Rhythm, Good Perfusion Gastrointestinal/Abdomen GI Exam: Soft, Non-Tender, Bowel Sounds Present, Positive Bowel Movement Musculoskeletal MS Exam: Joints Intact, Normal Gait, Normal Tone Integumentary Skin Exam: Clear, Warm, Dry, Intact Extremeties Extremities Exam: Trace Edema Neurologic Neuro Exam: Alert, Awake, Oriented, Speech Clear Assessment/Plan Discussed Condition With: Patient Assessment Summary: SAL/Acute Renal Failure, Fluid/Volume Overload, Proteinuria Problem List: (1) Acute renal failure Plan: 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 The disease appears to be active. 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 Patient is aware. He has been placed on CellCept daily had diarrhea and wanted to have Imodium, it is likely due to CellCept; also on prednisone 60 mg po daily x 30 days and then begin taper (beginning 12/22/16) dialysis initiated 11/19. He was on dialysis HD done on Saturday. Now urine out put is better. Creatinine almost same. HD on hold for today. Follow BMP in AM and decide about further HD. 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 plt count 50 No evidence of thrombotic microangiopathy. (3) Cirrhosis Plan: per findings on Ct scan long hx of heavy drinking GI following s/p EGD / colonoscopy: gastric erosions/ diverticulosis and internal/external hemorrhoids on PPI Problem Qualifiers (1) Acute renal failure: Qualified Code: N17.0 - Acute renal failure with tubular necrosis (2) Cirrhosis: Glenny Williamson MD Dec 17, 2016 19:13
[2016-12-17 20:35] VITALS: BP 169/93; PULSE 78; RESP 18; TEMP 97.3; O2SAT 100
[2016-12-17] MEDS: ALUMINUM/MAGNESIUM/SIMETH 30 ML CUP PO PRN (21:58)
[2016-12-18 00:27] VITALS: BP 147/72; PULSE 70; RESP 20; TEMP 96.7; O2SAT 100
[2016-12-18] MEDS: LORazepam 1 MG TAB PO PRN ×6 (01:36→21:27)
[2016-12-18] MEDS: ACETAMINOPHEN/HYDROcodone 325 MG/5 MG TAB PO PRN ×6 (01:36→21:27)
[2016-12-18] MEDS: CHLORHEXIDINE GLUCONATE 2 % 1 PACK (2 CLOTHS) TOP SCH (04:00)
[2016-12-18] MEDS: MYCOPHENOLATE MOFETIL 500 MG TAB PO SCH ×2 (05:59→18:34)
[2016-12-18] MEDS: ALUMINUM/MAGNESIUM/SIMETH 30 ML CUP PO PRN ×3 (06:03→21:24)
[2016-12-18 06:51] VITALS: BP 124/74; PULSE 81; RESP 18; TEMP 96; O2SAT 98
[2016-12-18 07:52] LABS: HEMATOCRIT 26.7 % (39.0-51.0); MEAN CELL VOLUME 96.1 FL (80.0-100.0); MEAN CORPUSCULAR HEMOGLOBIN 33.6 PG (27.0-34.0); PLATELET COUNT 74 TH/MM3 (150-450); RED BLOOD COUNT 2.78 MIL/MM3 (4.50-5.90); RED CELL DISTRIBUTION WIDTH 13.9 % (11.6-17.2); WHITE BLOOD COUNT 6.2 TH/MM3 (4.0-11.0)
[2016-12-18 07:59] VITALS: BP 155/97; PULSE 72; RESP 20; TEMP 95.3; O2SAT 100
[2016-12-18 08:01] LABS: REVIEW FLAG FINAL
[2016-12-18 08:14] LABS: BICARBONATE 23.9 MEQ/L (21.0-32.0); POTASSIUM 4.4 MEQ/L (3.5-5.1)
[2016-12-18] MEDS: PANTOPRAZOLE SOD 40 MG DELAYED RELEASE TAB PO SCH (09:17)
[2016-12-18] MEDS: SEVELAMER CARBONATE 800 MG TAB PO SCH ×3 (09:17→18:34)
[2016-12-18] MEDS: SODIUM CHLORIDE 0.9% FLUSH 5 ML FLUSH FLUSH SCH ×2 (09:17→21:00)
[2016-12-18] MEDS: predniSONE 20 MG TAB PO SCH (09:17)
--- NOTE | 2016-12-18 09:51 | HHI.NPPN ---
Subjective Complaints: Obesity General Problems: Edema, Hypertension Renal Failure: Acute History of Present Illness 46 y/o male who presented to ER with nausea/vomiting. Found to be in renal failure with Cr 17.2, BUN 249, K 5.4, CO2 13. We were consulted for further management. Additional Remarks Patient is alert, no SOB, complain of swelling in legs. Review of Systems General Constitutional: Fatigue Cardiovascular Cardiac: Edema Objective Data Data 12/17/16 12/18/16 19:00 07:00 Intake Total 360 ml Output Total 1450 ml Balance -1090 ml Intake Oral 360 ml Output Urine Total 1450 ml # Voids 4 # Bowel Movements 1 Vital Signs Date Time Temp Pulse Resp B/P Pulse Ox O2 Delivery O2 Flow Rate FiO2 12/18/16 07:59 95.3 72 20 155/97 100 12/18/16 06:51 96.0 81 18 124/74 98 12/18/16 00:27 96.7 70 20 147/72 100 12/17/16 20:35 97.3 78 18 169/93 100 12/17/16 16:31 96.4 83 20 151/87 99 12/17/16 11:57 97.7 88 20 145/87 100 -: 12/18/16 0729 12/18/16 0729 Tubes & Lines: Perma-Cath Physical Exam General Appearance: Well Nourished, No Acute Distress, Comfortable, Obese Eyes Eye Exam: Pupils Equal Throat Throat Exam: Oral Mucosa [place] & Moist Pulmonary Resp Exam: Clear Bilaterally, Breath Sounds Equal, No Distress Cardiology CV Exam: Regular, Normal Sinus Rhythm, Good Perfusion Gastrointestinal/Abdomen GI Exam: Soft, Non-Tender, Bowel Sounds Present, Positive Bowel Movement Musculoskeletal MS Exam: Joints Intact, Normal Gait, Normal Tone Integumentary Skin Exam: Clear, Warm, Dry, Intact Extremeties Extremities Exam: Trace Edema Neurologic Neuro Exam: Alert, Awake, Oriented, Speech Clear Assessment/Plan Discussed Condition With: Patient Assessment Summary: SAL/Acute Renal Failure, Fluid/Volume Overload, Proteinuria Problem List: (1) Acute renal failure Plan: 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 The disease appears to be active. 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 Patient is aware. He has been placed on CellCept daily had diarrhea and wanted to have Imodium, it is likely due to CellCept; also on prednisone 60 mg po daily x 30 days and then begin taper (beginning 12/22/16) dialysis initiated 11/19. He was on dialysis HD done on Saturday. Now urine out put is better. Creatinine slightly better. HD is on hold, continue CellCept and Prednisone. Follow BMP and decide about HD. 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 plt count 50 No evidence of thrombotic microangiopathy. (3) Cirrhosis Plan: per findings on Ct scan long hx of heavy drinking GI following s/p EGD / colonoscopy: gastric erosions/ diverticulosis and internal/external hemorrhoids on PPI Problem Qualifiers (1) Acute renal failure: Qualified Code: N17.0 - Acute renal failure with tubular necrosis (2) Cirrhosis: Glenny Williamson MD Dec 18, 2016 09:51
[2016-12-18 12:25] VITALS: BP 141/81; PULSE 94; RESP 20; TEMP 97.2; O2SAT 94
[2016-12-18 16:14] VITALS: BP 149/88; PULSE 83; RESP 20; TEMP 97.9; O2SAT 99
--- NOTE | 2016-12-18 16:16 | HHI.PR ---
Subjective Remarks Patient reports that he is having swelling again of bilateral lower extremities. He is urinating well. Renal functions improved today. Objective Vitals Vital Signs Date Time Temp Pulse Resp B/P Pulse Ox O2 Delivery O2 Flow Rate FiO2 12/18/16 12:25 97.2 94 20 141/81 94 12/18/16 07:59 95.3 72 20 155/97 100 12/18/16 06:51 96.0 81 18 124/74 98 12/18/16 00:27 96.7 70 20 147/72 100 12/17/16 20:35 97.3 78 18 169/93 100 12/17/16 16:31 96.4 83 20 151/87 99 I/O 12/17/16 12/17/16 12/17/16 12/18/16 12/18/16 12/18/16 07:00 15:00 23:00 07:00 15:00 23:00 Intake Total 360 ml 480 ml Output Total 1450 ml 550 ml Balance -1090 ml -70 ml Intake Oral 360 ml 480 ml Output Urine Total 1450 ml 550 ml # Voids 2 2 2 # Bowel Movements 0 1 2 Result Diagram: 12/18/1672812/18/16 07 Objective Remarks GENERAL: Obese male in no apparent distress. CARDIOVASCULAR: Normal rate and regular rhythm without murmurs, gallops, or rubs. RESPIRATORY: Good respiratory efforts. Breath sounds equal and clear to auscultation bilaterally. GASTROINTESTINAL: Abdomen soft, non-tender, non-distended. Normal active bowel sounds MUSCULOSKELETAL: There is 2+ bilateral lower extremity pitting edema. NEURO: Alert & Oriented x4 to person, place, time, situation. 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 Poor prognosis per nephrology. s/p PermCath placement. on HD as per nephrology. Renal functions and urinary output improving. Last Dialysis 12/14/16. Dialysis now on hold. Creatinine improved to 4.87. Further plans per nephrology. Continue prednisone 60 mg daily 30 days ( need to taper after 12/22/16) and Cellcept Thrombocytopenia due to cirrhosis-continue to monitor Cirrhosis- likely due to alcohol- GI following. Need outpatient follow up. Anemia: Stable. Likely due to liver disease, renal disease, hypersplenism.- s/p EGD / colonoscopy with gastric erosions/ diverticulosis and internal/external hemorrhoids. continue PPI. Sitz bath H/O ETOH abuse-counselled on drinking cessation. Problem Qualifiers (1) Acute renal failure: Qualified Code: N17.0 - Acute renal failure with tubular necrosis (2) Cirrhosis: Marlyn Mcwilliams MD Dec 18, 2016 16:16
[2016-12-18 20:00] VITALS: BP 173/96; PULSE 71; RESP 20; TEMP 97.6; O2SAT 99
[2016-12-18] MEDS: ZOLPIDEM TARTRATE 5 MG TAB PO PRN (21:27)
[2016-12-19] VITALS: BP 168/83; PULSE 70; RESP 18; TEMP 97.1; O2SAT 98
[2016-12-19] MEDS: ACETAMINOPHEN/HYDROcodone 325 MG/5 MG TAB PO PRN ×6 (02:38→23:23)
[2016-12-19] MEDS: LORazepam 1 MG TAB PO PRN ×6 (02:38→23:22)
[2016-12-19 04:00] VITALS: BP 165/91; PULSE 68; RESP 18; TEMP 96; O2SAT 99
[2016-12-19] MEDS: CHLORHEXIDINE GLUCONATE 2 % 1 PACK (2 CLOTHS) TOP SCH (04:00)
[2016-12-19] MEDS: MYCOPHENOLATE MOFETIL 500 MG TAB PO SCH ×2 (06:26→18:38)
[2016-12-19 07:45] VITALS: BP 140/81; PULSE 78; RESP 20; TEMP 96.8; O2SAT 98
[2016-12-19] MEDS: PANTOPRAZOLE SOD 40 MG DELAYED RELEASE TAB PO SCH (08:20)
[2016-12-19] MEDS: SEVELAMER CARBONATE 800 MG TAB PO SCH ×3 (08:20→18:38)
[2016-12-19] MEDS: predniSONE 20 MG TAB PO SCH (08:21)
[2016-12-19] MEDS: SODIUM CHLORIDE 0.9% FLUSH 5 ML FLUSH FLUSH SCH ×2 (08:22→23:23)
--- NOTE | 2016-12-19 11:21 | HHI.PR ---
Subjective Remarks Patient complaining of worsening bilateral lower extremity swelling. Urinating well. Wondering if he will have dialysis again. He reports that his symptoms are returning since dialysis has been normal. Itching a lot. Objective Vitals Vital Signs Date Time Temp Pulse Resp B/P Pulse Ox O2 Delivery O2 Flow Rate FiO2 12/19/16 07:45 96.8 78 20 140/81 98 12/19/16 04:00 96.0 68 18 165/91 99 12/19/16 00:00 97.1 70 18 168/83 98 12/18/16 20:00 97.6 71 20 173/96 99 12/18/16 16:14 97.9 83 20 149/88 99 12/18/16 12:25 97.2 94 20 141/81 94 I/O 12/18/16 12/18/16 12/18/16 12/19/16 12/19/16 12/19/16 07:00 15:00 23:00 07:00 15:00 23:00 Intake Total 480 ml 480 ml 480 ml Output Total 550 ml 800 ml Balance -70 ml 480 ml -320 ml Intake Oral 480 ml 480 ml 480 ml Output Urine Total 550 ml 800 ml # Voids 2 2 3 # Bowel Movements 1 2 3 Result Diagram: 12/18/1672812/18/16728 Objective Remarks GENERAL: Obese male in no apparent distress. CARDIOVASCULAR: Normal rate and regular rhythm without murmurs, gallops, or rubs. RESPIRATORY: Good respiratory efforts. Breath sounds equal and clear to auscultation bilaterally. GASTROINTESTINAL: Abdomen soft, non-tender, non-distended. Normal active bowel sounds MUSCULOSKELETAL: There is 2+ bilateral lower extremity pitting edema. NEURO: Alert & Oriented x4 to person, place, time, situation. 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 Poor prognosis for renal recovery. s/p PermCath placement. on HD PRN as per nephrology. Renal functions and urinary output improving. Last Dialysis 12/14/16. Dialysis now on hold. Creatinine has been improving. Further plans per nephrology. Continue prednisone 60 mg daily 30 days ( need to taper after 12/22/16) and Cellcept Thrombocytopenia due to cirrhosis-continue to monitor Cirrhosis- likely due to alcohol- GI following. Need outpatient follow up. Pruritus: Likely associated with short process as above. Advised patient to use Eucerin cream and Anemia: Stable. Likely due to liver disease, renal disease, hypersplenism.- s/p EGD / colonoscopy with gastric erosions/ diverticulosis and internal/external hemorrhoids. continue PPI. Sitz bath H/O ETOH abuse-counselled on drinking cessation. Problem Qualifiers (1) Acute renal failure: Qualified Code: N17.0 - Acute renal failure with tubular necrosis (2) Cirrhosis: Marlyn Mcwilliams MD Dec 19, 2016 11:21 Marlyn Mcwilliams MD Dec 19, 2016 11:21
[2016-12-19 12:07] VITALS: BP 155/86; PULSE 80; RESP 20; TEMP 96.4; O2SAT 98
[2016-12-19 12:50] LABS: BICARBONATE 21.7 MEQ/L (21.0-32.0); POTASSIUM 4.6 MEQ/L (3.5-5.1)
[2016-12-19 12:51] LABS: INDIRECT BILIRUBIN 0.8 MG/DL (0.0-0.8)
[2016-12-19 15:27] LABS: AUTOMATED NEUTROPHIL # 7.3 TH/MM3 (1.8-7.7); BASOPHIL % 0.3 % (0.0-2.0); EOSINOPHIL % 0.1 % (0.0-4.0); HEMATOCRIT 35.5 % (39.0-51.0); LYMPH % 5.7 % (9.0-44.0); LYMPHOCYTE # 0.5 TH/MM3 (1.0-4.8); MEAN CELL VOLUME 95.8 FL (80.0-100.0); MEAN CORPUSCULAR HEMOGLOBIN 32.2 PG (27.0-34.0); MEAN CORPUSCULAR HGB CONC 33.6 % (32.0-36.0); MONO % 4.6 % (0.0-8.0); NEUT % 89.3 % (16.0-70.0); PLATELET COUNT 105 TH/MM3 (150-450); WHITE BLOOD COUNT 8.2 TH/MM3 (4.0-11.0)
[2016-12-19 15:41] LABS: HEMO FLAGS AUTO DIFF
[2016-12-19 15:54] VITALS: BP 160/83; PULSE 88; RESP 20; TEMP 97.4; O2SAT 100
[2016-12-19 16:43] LABS: PLATELET ESTIMATE SMEAR LOW (NORMAL); PLATELET MORPHOLOGY NORMAL (NORMAL)
[2016-12-19 16:44] LABS: SCAN/DIFF AUTO DIFF CONFIRMED
--- NOTE | 2016-12-19 18:49 | HHI.NPPN ---
Subjective Complaints: Obesity General Problems: Edema, Hypertension Renal Failure: Acute History of Present Illness 46 y/o male who presented to ER with nausea/vomiting. Found to be in renal failure with Cr 17.2, BUN 249, K 5.4, CO2 13. We were consulted for further management. Additional Remarks Patient is alert, no SOB, urine out put is better, still has swelling in legs. Review of Systems General Constitutional: Fatigue Cardiovascular Cardiac: Edema Objective Data Data 12/18/16 12/19/16 19:00 07:00 Intake Total 480 ml 960 ml Output Total 550 ml 800 ml Balance -70 ml 160 ml Intake Oral 480 ml 960 ml Output Urine Total 550 ml 800 ml # Voids 2 3 # Bowel Movements 5 Vital Signs Date Time Temp Pulse Resp B/P Pulse Ox O2 Delivery O2 Flow Rate FiO2 12/19/16 15:54 97.4 88 20 160/83 100 12/19/16 12:07 96.4 80 20 155/86 98 12/19/16 07:45 96.8 78 20 140/81 98 12/19/16 04:00 96.0 68 18 165/91 99 12/19/16 00:00 97.1 70 18 168/83 98 12/18/16 20:00 97.6 71 20 173/96 99 -: 12/19/16 1513 12/19/16 1140 Tubes & Lines: Perma-Cath Physical Exam General Appearance: Well Nourished, No Acute Distress, Comfortable, Obese Eyes Eye Exam: Pupils Equal Throat Throat Exam: Oral Mucosa [place] & Moist Pulmonary Resp Exam: Clear Bilaterally, Breath Sounds Equal, No Distress Cardiology CV Exam: Regular, Normal Sinus Rhythm, Good Perfusion Gastrointestinal/Abdomen GI Exam: Soft, Non-Tender, Bowel Sounds Present, Positive Bowel Movement Musculoskeletal MS Exam: Joints Intact, Normal Gait, Normal Tone Integumentary Skin Exam: Clear, Warm, Dry, Intact Extremeties Extremities Exam: Trace Edema Neurologic Neuro Exam: Alert, Awake, Oriented, Speech Clear Assessment/Plan Discussed Condition With: Patient Assessment Summary: SAL/Acute Renal Failure, Fluid/Volume Overload, Proteinuria Problem List: (1) Acute renal failure Plan: 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 The disease appears to be active. 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 Patient is aware. He has been placed on CellCept daily had diarrhea and wanted to have Imodium, it is likely due to CellCept; also on prednisone 60 mg po daily x 30 days and then begin taper (beginning 12/22/16) dialysis initiated 11/19. He was on M-W- dialysis Now urine out put is better. Creatinine continue to slowly improving. continue CellCept and Prednisone. Follow BMP and decide about HD. Continue to hold HD for now. 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 plt count 50 No evidence of thrombotic microangiopathy. (3) Cirrhosis Plan: per findings on Ct scan long hx of heavy drinking GI following s/p EGD / colonoscopy: gastric erosions/ diverticulosis and internal/external hemorrhoids on PPI Problem Qualifiers (1) Acute renal failure: Qualified Code: N17.0 - Acute renal failure with tubular necrosis (2) Cirrhosis: Glenny Williamson MD Dec 19, 2016 18:49
[2016-12-19 20:00] VITALS: BP 171/91; PULSE 67; RESP 18; TEMP 97.8; O2SAT 97
[2016-12-19] MEDS: ZOLPIDEM TARTRATE 5 MG TAB PO PRN (23:22)
[2016-12-20] VITALS: BP 148/80; PULSE 69; RESP 18; TEMP 97.1; O2SAT 98
[2016-12-20] MEDS: LORazepam 1 MG TAB PO PRN ×5 (02:59→20:57)
[2016-12-20] MEDS: ACETAMINOPHEN/HYDROcodone 325 MG/5 MG TAB PO PRN ×5 (02:59→20:57)
[2016-12-20 04:00] VITALS: BP 157/89; PULSE 64; RESP 20; TEMP 97.6; O2SAT 97
[2016-12-20] MEDS: CHLORHEXIDINE GLUCONATE 2 % 1 PACK (2 CLOTHS) TOP SCH (04:00)
[2016-12-20] MEDS: MYCOPHENOLATE MOFETIL 500 MG TAB PO SCH ×2 (06:49→16:29)
[2016-12-20 08:34] VITALS: BP 148/78; PULSE 68; RESP 18; TEMP 96.2; O2SAT 100
[2016-12-20] MEDS: SEVELAMER CARBONATE 800 MG TAB PO SCH ×3 (09:04→16:29)
[2016-12-20] MEDS: predniSONE 20 MG TAB PO SCH (09:04)
[2016-12-20] MEDS: PANTOPRAZOLE SOD 40 MG DELAYED RELEASE TAB PO SCH (09:04)
[2016-12-20] MEDS: SODIUM CHLORIDE 0.9% FLUSH 5 ML FLUSH FLUSH SCH ×2 (09:04→20:57)
[2016-12-20 09:39] LABS: HEMATOCRIT 31.2 % (39.0-51.0); MEAN CELL VOLUME 95.1 FL (80.0-100.0); MEAN CORPUSCULAR HEMOGLOBIN 32.8 PG (27.0-34.0); MEAN CORPUSCULAR HGB CONC 34.5 % (32.0-36.0); PLATELET COUNT 90 TH/MM3 (150-450); RED BLOOD COUNT 3.28 MIL/MM3 (4.50-5.90); RED CELL DISTRIBUTION WIDTH 14.2 % (11.6-17.2); WHITE BLOOD COUNT 8.1 TH/MM3 (4.0-11.0)
[2016-12-20 09:46] LABS: REVIEW FLAG AUTO DIFF
[2016-12-20 10:08] LABS: BICARBONATE 25.9 MEQ/L (21.0-32.0); INDIRECT BILIRUBIN 0.4 MG/DL (0.0-0.8); POTASSIUM 4.4 MEQ/L (3.5-5.1); TOTAL BILIRUBIN ADULT 0.6 MG/DL (0.2-1.0)
--- NOTE | 2016-12-20 11:31 | HHI.NPPN ---
Subjective Complaints: Obesity General Problems: Edema, Hypertension Renal Failure: Acute History of Present Illness 46 y/o male who presented to ER with nausea/vomiting. Found to be in renal failure with Cr 17.2, BUN 249, K 5.4, CO2 13. We were consulted for further management. Additional Remarks Patient is alert, complain of SOB and increase leg swelling, on room air. Review of Systems General Constitutional: Fatigue Cardiovascular Cardiac: Edema Objective Data Data 12/19/16 12/20/16 19:00 07:00 Intake Total 480 ml 720 ml Output Total 900 ml 1850 ml Balance -420 ml -1130 ml Intake Oral 480 ml 720 ml Output Urine Total 900 ml 1850 ml # Voids 7 # Bowel Movements 3 2 Vital Signs Date Time Temp Pulse Resp B/P Pulse Ox O2 Delivery O2 Flow Rate FiO2 12/20/16 08:34 96.2 68 18 148/78 100 12/20/16 04:00 97.6 64 20 157/89 97 12/20/16 00:00 97.1 69 18 148/80 98 12/19/16 20:00 97.8 67 18 171/91 97 12/19/16 15:54 97.4 88 20 160/83 100 12/19/16 12:07 96.4 80 20 155/86 98 -: 12/20/16 0851 12/20/16 0851 Tubes & Lines: Perma-Cath Physical Exam General Appearance: Well Nourished, No Acute Distress, Comfortable, Obese Eyes Eye Exam: Pupils Equal Throat Throat Exam: Oral Mucosa [place] & Moist Pulmonary Resp Exam: Clear Bilaterally, Breath Sounds Equal, No Distress Cardiology CV Exam: Regular, Normal Sinus Rhythm, Good Perfusion Gastrointestinal/Abdomen GI Exam: Soft, Non-Tender, Bowel Sounds Present, Positive Bowel Movement Musculoskeletal MS Exam: Joints Intact, Normal Gait, Normal Tone Integumentary Skin Exam: Clear, Warm, Dry, Intact Extremeties Extremities Exam: Trace Edema Neurologic Neuro Exam: Alert, Awake, Oriented, Speech Clear Assessment/Plan Discussed Condition With: Patient Assessment Summary: SAL/Acute Renal Failure, Fluid/Volume Overload, Proteinuria Problem List: (1) Acute renal failure Plan: 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 The disease appears to be active. 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 Patient is aware. He has been placed on CellCept daily had diarrhea and wanted to have Imodium, it is likely due to CellCept; also on prednisone 60 mg po daily x 30 days and then begin taper (beginning 12/22/16) dialysis initiated 11/19. He was on M-W- dialysis Now urine out put is better. Creatinine continue to improve. continue CellCept and Prednisone. Has more edema, will add Lasix, also BP is elevated, add Nifedipine. If Creatinine continue to improve, will get PermCath removed. Decrease Prednisone 20 mg daily. 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 plt count 50 No evidence of thrombotic microangiopathy. (3) Cirrhosis Plan: per findings on Ct scan long hx of heavy drinking GI following s/p EGD / colonoscopy: gastric erosions/ diverticulosis and internal/external hemorrhoids on PPI Problem Qualifiers (1) Acute renal failure: Qualified Code: N17.0 - Acute renal failure with tubular necrosis (2) Cirrhosis: Glenny Williamson MD Dec 20, 2016 11:31
[2016-12-20] MEDS: FUROSEMIDE 40 MG/4 ML VIAL IV PUSH SCH (12:27)
[2016-12-20] MEDS: ALUMINUM/MAGNESIUM/SIMETH 30 ML CUP PO PRN ×2 (12:28→20:57)
[2016-12-20] MEDS: NIFEdipine 60 MG SUSTAINED RELEASE TAB PO SCH (12:28)
[2016-12-20 12:45] VITALS: BP 138/76; PULSE 81; RESP 18; TEMP 97.4; O2SAT 96
--- NOTE | 2016-12-20 16:45 | HHI.PR ---
Subjective Remarks Patient continues to report bilateral lower extremity swelling. Some shortness of breath. Renal function improving. He is urinating a lot more. Objective Vitals Vital Signs Date Time Temp Pulse Resp B/P Pulse Ox O2 Delivery O2 Flow Rate FiO2 12/20/16 12:45 97.4 81 18 138/76 96 12/20/16 08:34 96.2 68 18 148/78 100 12/20/16 04:00 97.6 64 20 157/89 97 12/20/16 00:00 97.1 69 18 148/80 98 12/19/16 20:00 97.8 67 18 171/91 97 I/O 12/19/16 12/19/16 12/19/16 12/20/16 12/20/16 12/20/16 07:00 15:00 23:00 07:00 15:00 23:00 Intake Total 480 ml 480 ml 600 ml 120 ml 360 ml Output Total 800 ml 900 ml 700 ml 1150 ml 650 ml Balance -320 ml -420 ml -100 ml -1030 ml -290 ml Intake Oral 480 ml 480 ml 600 ml 120 ml 360 ml Output Urine Total 800 ml 900 ml 700 ml 1150 ml 650 ml # Voids 7 # Bowel Movements 3 2 4 Result Diagram: 12/20/16 0851 12/20/16 0851 Objective Remarks GENERAL: Obese male in no apparent distress. CARDIOVASCULAR: Normal rate and regular rhythm without murmurs, gallops, or rubs. RESPIRATORY: Good respiratory efforts. Breath sounds equal and clear to auscultation bilaterally. GASTROINTESTINAL: Abdomen soft, non-tender, non-distended. Normal active bowel sounds MUSCULOSKELETAL: There is 2+ bilateral lower extremity pitting edema. NEURO: Alert & Oriented x4 to person, place, time, situation. 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 Poor prognosis for renal recovery. s/p PermCath placement. on HD PRN as per nephrology. Renal functions and urinary output improving. Last Dialysis 12/14/16. Dialysis now on hold. Creatinine has been improving. Further plans per nephrology. If renal function continues to improve, would remove permacath. - Patient started on Lasix to help with edema. Nifedipine started for elevated blood pressure. Continue prednisone 60 mg daily 30 days ( need to taper after 12/22/16) and Cellcept Thrombocytopenia due to cirrhosis-continue to monitor Cirrhosis- likely due to alcohol- GI following. Need outpatient follow up. Pruritus: Likely associated with short process as above. Advised patient to use Eucerin cream and Anemia: Stable. Likely due to liver disease, renal disease, hypersplenism.- s/p EGD / colonoscopy with gastric erosions/ diverticulosis and internal/external hemorrhoids. continue PPI. Sitz bath H/O ETOH abuse-counselled on drinking cessation. Problem Qualifiers (1) Acute renal failure: Qualified Code: N17.0 - Acute renal failure with tubular necrosis (2) Cirrhosis: Marlyn Mcwilliams MD Dec 20, 2016 16:45
[2016-12-20 16:46] VITALS: BP 136/91; PULSE 85; RESP 20; TEMP 98; O2SAT 97
[2016-12-20 20:06] VITALS: BP 131/80; PULSE 91; RESP 17; TEMP 97; O2SAT 99
[2016-12-21] MEDS: CHLORHEXIDINE GLUCONATE 2 % 1 PACK (2 CLOTHS) TOP SCH (04:00)
[2016-12-21] MEDS: ACETAMINOPHEN/HYDROcodone 325 MG/5 MG TAB PO PRN ×3 (04:20→20:29)
[2016-12-21] MEDS: LORazepam 1 MG TAB PO PRN ×3 (04:20→20:30)
[2016-12-21] MEDS: ALUMINUM/MAGNESIUM/SIMETH 30 ML CUP PO PRN ×2 (04:42→15:13)
[2016-12-21] MEDS: MYCOPHENOLATE MOFETIL 500 MG TAB PO SCH ×2 (04:44→16:43)
[2016-12-21 05:47] VITALS: BP 134/86; PULSE 84; RESP 17; TEMP 97.9; O2SAT 97
[2016-12-21 07:52] LABS: BICARBONATE 22.9 MEQ/L (21.0-32.0); POTASSIUM 3.9 MEQ/L (3.5-5.1)
[2016-12-21 08:17] VITALS: BP 129/75; PULSE 92; RESP 19; TEMP 97.1; O2SAT 96
[2016-12-21] MEDS: NIFEdipine 60 MG SUSTAINED RELEASE TAB PO SCH (08:50)
[2016-12-21] MEDS: SEVELAMER CARBONATE 800 MG TAB PO SCH ×3 (08:50→16:44)
[2016-12-21] MEDS: PANTOPRAZOLE SOD 40 MG DELAYED RELEASE TAB PO SCH (08:51)
[2016-12-21] MEDS: FUROSEMIDE 40 MG/4 ML VIAL IV PUSH SCH (08:51)
[2016-12-21] MEDS: SODIUM CHLORIDE 0.9% FLUSH 5 ML FLUSH FLUSH SCH ×2 (08:51→21:00)
[2016-12-21] MEDS: predniSONE 20 MG TAB PO SCH (08:51)
--- NOTE | 2016-12-21 10:49 | HHI.PR ---
Subjective Remarks Patient reports that he is feeling okay. Believe the lower extremity swelling is slightly improved. Renal functions better. Objective Vitals Vital Signs Date Time Temp Pulse Resp B/P Pulse Ox O2 Delivery O2 Flow Rate FiO2 12/21/16 08:17 97.1 92 19 129/75 96 12/21/16 05:47 97.9 84 17 134/86 97 12/20/16 20:06 97.0 91 17 131/80 99 12/20/16 16:46 98.0 85 20 136/91 97 12/20/16 12:45 97.4 81 18 138/76 96 I/O 12/20/16 12/20/16 12/20/16 12/21/16 12/21/16 12/21/16 07:00 15:00 23:00 07:00 15:00 23:00 Intake Total 120 ml 360 ml 240 ml 120 ml Output Total 1150 ml 650 ml 450 ml 875 ml Balance -1030 ml -290 ml -210 ml -755 ml Intake Oral 120 ml 360 ml 240 ml 120 ml Output Urine Total 1150 ml 650 ml 450 ml 875 ml # Bowel Movements 2 4 Result Diagram: 12/20/16 0851 12/21/16 0704 Objective Remarks GENERAL: Obese male in no apparent distress. CARDIOVASCULAR: Normal rate and regular rhythm without murmurs, gallops, or rubs. RESPIRATORY: Good respiratory efforts. Breath sounds equal and clear to auscultation bilaterally. GASTROINTESTINAL: Abdomen soft, non-tender, non-distended. Normal active bowel sounds MUSCULOSKELETAL: There is 2+ bilateral lower extremity pitting edema. NEURO: Alert & Oriented x4 to person, place, time, situation. 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 s/p PermCath placement. on HD PRN as per nephrology. Renal functions and urinary output improving. Last Dialysis 12/14/16. Dialysis now on hold. Creatinine has been improving. - Patient started on Lasix to help with edema. He is responding well and renal functions continue to improve. Nifedipine for blood pressure. On prednisone taper per nephrology and Cellcept Thrombocytopenia due to cirrhosis-continue to monitor Cirrhosis- likely due to alcohol- GI following. Need outpatient follow up. Pruritus: Likely associated with short process as above. Advised patient to use Eucerin cream and Anemia: Stable. Likely due to liver disease, renal disease, hypersplenism.- s/p EGD / colonoscopy with gastric erosions/ diverticulosis and internal/external hemorrhoids. continue PPI. Sitz bath H/O ETOH abuse-counselled on drinking cessation. Discharge Planning Patient will be discharged home once renal function is acceptable and cleared by nephrology. Problem Qualifiers (1) Acute renal failure: Qualified Code: N17.0 - Acute renal failure with tubular necrosis (2) Cirrhosis: Marlyn Mcwilliams MD Dec 21, 2016 10:49
[2016-12-21 12:03] VITALS: BP 117/57; PULSE 85; RESP 18; TEMP 95.7; O2SAT 96
[2016-12-21] MEDS ORDERED: LIDOCAINE 1%/EPINEPHrine 1:100,000 SOLN 20 ML VIAL ONE (14:20)
--- NOTE | 2016-12-21 14:40 | PD.RAD ---
Post Procedure Progress Note Pre Procedure Diagnosis: (1) Renal failure Post Procedure Diagnosis: (1) Renal failure Procedure Date: Dec 21, 2016 Supervising Radiologist: Bj Prince JR Proceduralist/Assist: RT John(R) Anesthesia: Local Plan of Activity Patient to Unit: Nursing Unit Patient Condition: Good See PACS Report for procedural detail/treatment Central Venous Access Device Procedure 1 Right Internal Jugular Hemodialysis Catheter Tunneled Removal Findings: Permcath no longer needed. Removed without difficulty. Stitch placed at dermatotomy secondary to thrombocytopenia. Plan Remove suture at right chest in 3-4 days Jr. Suresh,Bj Donovan MD Dec 21, 2016 14:40
--- NOTE | 2016-12-21 15:37 | RADRPT ---
EXAM DATE/TIME: 12/21/2016 00:00 [facility] COMPARISON: No previous studies available for comparison. INDICATIONS : Patient in need of tunnelled dialysis catheter removal that is no longer needed. Patient no longer ne eding hemodialysis. MEDICAL HISTORY : Recovery alcoholic History of renal failure Recurrent lower extremity cellulitis Dialysis SURGICAL HISTORY : Surgery to both lower extremities Dialysis catheter placement ENCOUNTER: Subsequent ACUITY: 1 month PAIN SCORE: 0/10 LOCATION: N/A MEDICATION(S): 1.) 9 units Lidocaine with epinephrine SC PROCEDURE : 1. PermaCath removal. The risks, benefits and alternatives to the procedure were explained and verbal and written consent w as obtained. The site was prepped in sterile fashion. Full sterile technique was used, including ca p, mask, sterile gloves and gown and a large sterile sheet. Hand hygiene and 2% chlorhexidine and/or betadine/alcohol prep was utilized per protocol for cutaneous antisepsis. The skin and subcutaneous tissues were infiltrated with local anesthetic solution. The tract was anesthetized with 1% Lidocaine using. Aspiration of the heparin from both lumens of the catheter was performed. The Permcath was dissected from the subcutaneous tissues and easily removed in one piece. Manual pressure was applied to the venotomy site until hemostasis was obtained. A hori zontal mattress bowel suture was placed at the dermatotomy site in this patient with thrombocytopenia . Sterile dressing was applied. The patient tolerated the procedure well and there were no complications. CONCLUSION: Uncomplicated Permcath removal. Suture involving the dermatotomy site should be removed in 3-4 days. Bj Prince Jr., MD on December 21, 2016 at 15:30 Board Certified Radiologist. This report was verified electronically.
[2016-12-21 16:00] VITALS: BP 140/86; PULSE 113; RESP 18; TEMP 95.6; O2SAT 99
--- NOTE | 2016-12-21 17:20 | HHI.NPPN ---
Subjective Complaints: Obesity General Problems: Edema, Hypertension Renal Failure: Acute History of Present Illness 46 y/o male who presented to ER with nausea/vomiting. Found to be in renal failure with Cr 17.2, BUN 249, K 5.4, CO2 13. We were consulted for further management. Additional Remarks Patient is alert,breathing is better, still has leg swelling. Review of Systems General Constitutional: Fatigue Cardiovascular Cardiac: Edema Objective Data Data 12/20/16 12/21/16 19:00 07:00 Intake Total 360 ml 360 ml Output Total 650 ml 1325 ml Balance -290 ml -965 ml Intake Oral 360 ml 360 ml Output Urine Total 650 ml 1325 ml # Bowel Movements 4 Vital Signs Date Time Temp Pulse Resp B/P Pulse Ox O2 Delivery O2 Flow Rate FiO2 12/21/16 16:00 95.6 113 18 140/86 99 12/21/16 12:03 95.7 85 18 117/57 96 12/21/16 08:17 97.1 92 19 129/75 96 12/21/16 05:47 97.9 84 17 134/86 97 12/20/16 20:06 97.0 91 17 131/80 99 -: 12/20/16 0851 12/21/16 0704 Tubes & Lines: Perma-Cath Physical Exam General Appearance: Well Nourished, No Acute Distress, Comfortable, Obese Eyes Eye Exam: Pupils Equal Throat Throat Exam: Oral Mucosa [place] & Moist Pulmonary Resp Exam: Clear Bilaterally, Breath Sounds Equal, No Distress Cardiology CV Exam: Regular, Normal Sinus Rhythm, Good Perfusion Gastrointestinal/Abdomen GI Exam: Soft, Non-Tender, Bowel Sounds Present, Positive Bowel Movement Musculoskeletal MS Exam: Joints Intact, Normal Gait, Normal Tone Integumentary Skin Exam: Clear, Warm, Dry, Intact Extremeties Extremities Exam: Trace Edema Neurologic Neuro Exam: Alert, Awake, Oriented, Speech Clear Assessment/Plan Discussed Condition With: Patient Assessment Summary: SAL/Acute Renal Failure, Fluid/Volume Overload, Proteinuria Problem List: (1) Acute renal failure Plan: 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 The disease appears to be active. 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 Patient is aware. He has been placed on CellCept daily had diarrhea and wanted to have Imodium, it is likely due to CellCept; also on prednisone 60 mg po daily x 30 days and then begin taper (beginning 12/22/16) dialysis initiated 11/19. He was on -- dialysis Now urine out put is better. Creatinine continue to improve. continue CellCept and Prednisone. Has more edema, on Lasix, BP is better , on Nifedipine. PermCath was removed. If Creatinine continue to improve, can be discharged tomorrow. 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 plt count 50 No evidence of thrombotic microangiopathy. (3) Cirrhosis Plan: per findings on Ct scan long hx of heavy drinking GI following s/p EGD / colonoscopy: gastric erosions/ diverticulosis and internal/external hemorrhoids on PPI Problem Qualifiers (1) Acute renal failure: Qualified Code: N17.0 - Acute renal failure with tubular necrosis (2) Cirrhosis: Glenny Williamson MD Dec 21, 2016 17:20
[2016-12-21 20:08] VITALS: BP 132/84; PULSE 91; RESP 16; TEMP 97; O2SAT 99
[2016-12-22 00:25] VITALS: BP 148/94; PULSE 95; RESP 17; TEMP 97.1; O2SAT 98
[2016-12-22] MEDS: ACETAMINOPHEN/HYDROcodone 325 MG/5 MG TAB PO PRN ×5 (01:11→20:24)
[2016-12-22] MEDS: ZOLPIDEM TARTRATE 5 MG TAB PO PRN (01:11)
[2016-12-22] MEDS: LORazepam 1 MG TAB PO PRN ×5 (01:21→20:23)
[2016-12-22] MEDS: ALUMINUM/MAGNESIUM/SIMETH 30 ML CUP PO PRN ×3 (01:27→20:24)
[2016-12-22 03:15] VITALS: BP 134/80; PULSE 94; RESP 17; TEMP 96.9; O2SAT 99
[2016-12-22] MEDS: CHLORHEXIDINE GLUCONATE 2 % 1 PACK (2 CLOTHS) TOP SCH (03:52)
[2016-12-22] MEDS: MYCOPHENOLATE MOFETIL 500 MG TAB PO SCH ×2 (05:18→18:00)
[2016-12-22 07:49] LABS: BICARBONATE 22.3 MEQ/L (21.0-32.0)
[2016-12-22 08:00] VITALS: BP 142/89; PULSE 87; RESP 18; TEMP 96.1; O2SAT 100
[2016-12-22] MEDS: predniSONE 20 MG TAB PO SCH (08:38)
[2016-12-22] MEDS: PANTOPRAZOLE SOD 40 MG DELAYED RELEASE TAB PO SCH (08:38)
[2016-12-22] MEDS: NIFEdipine 60 MG SUSTAINED RELEASE TAB PO SCH (08:38)
[2016-12-22] MEDS: SODIUM CHLORIDE 0.9% FLUSH 5 ML FLUSH FLUSH SCH (08:39)
[2016-12-22] MEDS: FUROSEMIDE 40 MG/4 ML VIAL IV PUSH SCH (08:39)
[2016-12-22] MEDS: SEVELAMER CARBONATE 800 MG TAB PO SCH ×3 (08:39→17:00)
[2016-12-22] MEDS: ONDANSETRON HCL 4 MG/2 ML VIAL IVP PRN ×2 (08:48→16:09)
[2016-12-22 12:00] VITALS: BP 139/85; PULSE 93; RESP 18; TEMP 97.2; O2SAT 99
--- NOTE | 2016-12-22 12:17 | HHI.NPPN ---
Subjective Complaints: Obesity General Problems: Edema, Hypertension Renal Failure: Acute History of Present Illness 46 y/o male who presented to ER with nausea/vomiting. Found to be in renal failure with Cr 17.2, BUN 249, K 5.4, CO2 13. We were consulted for further management. Additional Remarks Patient is alert,breathing is better, leg swelling also improving. Review of Systems General Constitutional: Fatigue Cardiovascular Cardiac: Edema Objective Data Data 12/21/16 12/22/16 19:00 07:00 Intake Total 240 ml Output Total 600 ml Balance -600 ml 240 ml Intake Oral 240 ml Output Urine Total 600 ml # Bowel Movements 2 Vital Signs Date Time Temp Pulse Resp B/P Pulse Ox O2 Delivery O2 Flow Rate FiO2 12/22/16 12:00 97.2 93 18 139/85 99 12/22/16 08:00 96.1 87 18 142/89 100 12/22/16 03:15 96.9 94 17 134/80 99 12/22/16 00:25 97.1 95 17 148/94 98 12/21/16 20:08 97.0 91 16 132/84 99 12/21/16 16:00 95.6 113 18 140/86 99 -: 12/20/16 0851 12/22/16 0550 Tubes & Lines: Perma-Cath Physical Exam General Appearance: Well Nourished, No Acute Distress, Comfortable, Obese Eyes Eye Exam: Pupils Equal Throat Throat Exam: Oral Mucosa [place] & Moist Pulmonary Resp Exam: Clear Bilaterally, Breath Sounds Equal, No Distress Cardiology CV Exam: Regular, Normal Sinus Rhythm, Good Perfusion Gastrointestinal/Abdomen GI Exam: Soft, Non-Tender, Bowel Sounds Present, Positive Bowel Movement Musculoskeletal MS Exam: Joints Intact, Normal Gait, Normal Tone Integumentary Skin Exam: Clear, Warm, Dry, Intact Extremeties Extremities Exam: Trace Edema Neurologic Neuro Exam: Alert, Awake, Oriented, Speech Clear Assessment/Plan Discussed Condition With: Patient Assessment Summary: SAL/Acute Renal Failure, Fluid/Volume Overload, Proteinuria Problem List: (1) Acute renal failure Plan: 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 The disease appears to be active. 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 Patient is aware. He has been placed on CellCept daily had diarrhea and wanted to have Imodium, it is likely due to CellCept; also on prednisone 60 mg po daily x 30 days and then begin taper (beginning 12/22/16) dialysis initiated 11/19. He was on -- dialysis Now urine out put is better. Creatinine continue to improve. continue CellCept and Prednisone. Has more edema, on Lasix, BP is better , on Nifedipine. PermCath was removed. Creatinine continue to improve, now 3.4 and the GFR is 19 ml/min. can be discharged on Prednisone 20 mg daily, CellCept and Lasix 40 mg daily. To follow with Dr. Mayer in 1-2 weeks. 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 plt count 50 No evidence of thrombotic microangiopathy. (3) Cirrhosis Plan: per findings on Ct scan long hx of heavy drinking GI following s/p EGD / colonoscopy: gastric erosions/ diverticulosis and internal/external hemorrhoids on PPI Problem Qualifiers (1) Acute renal failure: Qualified Code: N17.0 - Acute renal failure with tubular necrosis (2) Cirrhosis: Glenny Williamson MD Dec 22, 2016 12:17
[2016-12-22] MEDS ORDERED: MYCO500 PO (15:28)
[2016-12-22] MEDS ORDERED: NIFE60TA8 PO (15:28)
[2016-12-22] MEDS ORDERED: FURO1TAB60 PO (15:28)
[2016-12-22] MEDS ORDERED: PRED20 PO (15:28)
--- NOTE | 2016-12-22 15:29 | HHI.DCPOC ---
Discharge Care Plan Diagnosis: (1) Renal failure (2) Cellulitis of left leg (3) Anemia Goals to Promote Your Health * To prevent worsening of your condition and complications * To maintain your health at the optimal level Directions to Meet Your Goals Take your medications as prescribed Follow your dietary instruction Follow activity as directed Keep your appointments as scheduled Take your immunizations and boosters as scheduled If your symptoms worsen call your PCP, if no PCP go to Urgent Care Center or Emergency Room Smoking is Dangerous to Your Health. Avoid second hand smoke Call the 24-hour hour crisis hotline for domestic abuse at Marlyn Mcwilliams MD Dec 22, 2016 15:29
--- NOTE | 2016-12-22 15:33 | HHI.DS ---
Discharge Summary Admission Date Nov 18, 2016 at 19:20 Discharge Date: Dec 22, 2016 Admitting Diagnosis RENAL FAILURE, CELLULITIS LEFT LEG (1) Cellulitis of left leg ICD Code: L03.116 (2) Acute renal failure ICD Code: N17.9 (3) Thrombocytopenia ICD Code: D69.6 (4) Hyperkalemia ICD Code: E87.5 (5) Cirrhosis ICD Code: K74.60 (6) Anemia ICD Code: D64.9 (7) Heartburn ICD Code: R12 (8) H/O ETOH abuse ICD Code: Z87.898 Procedures renal biopsy perma cath placement and removal Brief History - From Admission 46-year-old male with a history of recurrent lower extremity cellulitis was admitted to [facility] for evaluation of worsening renal function along with intractable nausea and vomiting and decreased urine output 4 weeks .Patient states on 11/09/16 after flying back in [facility] from [place], he noticed swelling of the left lower extremity however on 11/13/16 he had erythema for which he was seen in the ED and started on Bactrim DS. After 2 days of treatment, patient has complained of nausea and vomiting and was advised to 1/2 tab, however there was no improvement. Patient was switched to a different antibiotic without any improvement. He continued to complain of extreme left lower extremity pain. On arrival in ED yesterday generate 2016 patient was found to have BUN/creatinine 2.48/17 and some electrolyte abnormalities along with thrombocytopenia. He denies any GI bleed. CBC/BMP: 12/20/16 0851 12/22/16 0550 Significant Findings Laboratory Tests Test 12/20/16 12/21/16 12/22/16 08:51 07:04 05:50 Red Blood Count 3.28 MIL/MM3 (4.50-5.90) Hemoglobin 10.8 GM/DL (13.0-17.0) Hematocrit 31.2 % (39.0-51.0) Platelet Count 90 TH/MM3 (150-450) Blood Urea Nitrogen 130 MG/DL 134 MG/DL 128 MG/DL (7-18) (7-18) (7-18) Creatinine 3.81 MG/DL 3.65 MG/DL 3.42 MG/DL (0.60-1.30) (0.60-1.30) (0.60-1.30) Estimat Glomerular Filtration 17 ML/MIN (>89) 18 ML/MIN (>89) 19 ML/MIN (>89) Rate Calcium Level 7.9 MG/DL 7.5 MG/DL 7.6 MG/DL (8.5-10.1) (8.5-10.1) (8.5-10.1) Alanine Aminotransferase 85 U/L (12-78) (ALT/SGPT) Total Protein 4.5 GM/DL (6.4-8.2) Albumin 2.2 GM/DL (3.4-5.0) Random Glucose 152 MG/DL (74-106) Imaging Last Impressions Central Venous Line 12/21/16 0000 Signed Impressions: Service Date/Time: Wednesday, December 21, 2016 00:00 - CONCLUSION: Uncomplicated Permcath removal. Suture involving the dermatotomy site should be removed in 3- 4 days. Bj Prince Jr., MD Upper Extremity Ultrasound 12/01/16 0000 Signed Impressions: Service Date/Time: Thursday, December 01, 2016 18:48 - CONCLUSION: 1. No deep venous thrombosis identified. Limited evaluation of right subclavian vein due to [id number]. Joseph Marti MD Catheter Placement X-Ray 11/26/16 0940 Signed Impressions: Service Date/Time: Saturday, November 26, 2016 14:33 - CONCLUSION: Uncomplicated PermaCath placement as above. Hong Huffman MD Renal Biopsy CT 11/22/16 0000 Signed Impressions: Service Date/Time: October 11:57 - CONCLUSION: Uncomplicated CT guided biopsy of the right lower pole kidney. Derek Monte MD Renal Ultrasound 11/19/16 0000 Signed Impressions: Service Date/Time: Saturday, November 19, 2016 09:26 - CONCLUSION: Normal examination. Garrett Lopes MD Radiology Special Procedure 11/19/16 0000 Signed Impressions: Service Date/Time: Saturday, November 19, 2016 00:00 - CONCLUSION: Hemostasis around the catheter insertion site was achieved. The patient tolerated the procedure well. Horace Zapata MD Abdomen/Pelvis CT 11/19/16 0000 Signed Impressions: Service Date/Time: Saturday, November 19, 2016 13:56 - CONCLUSION: Stable findings of cirrhosis and splenomegaly with varices. Otherwise negative. Garrett Lopes MD Chest X-Ray 11/18/16 1628 Signed Impressions: Service Date/Time: Friday, November 18, 2016 16:49 - CONCLUSION: Cardiomegaly. Derek Rider MD PE at Discharge GENERAL: Obese male in no apparent distress. CARDIOVASCULAR: Normal rate and regular rhythm without murmurs, gallops, or rubs. RESPIRATORY: Good respiratory efforts. Breath sounds equal and clear to auscultation bilaterally. GASTROINTESTINAL: Abdomen soft, non-tender, non-distended. Normal active bowel sounds MUSCULOSKELETAL: There is 2+ bilateral lower extremity pitting edema. NEURO: Alert & Oriented x4 to person, place, time, situation. Moves all ext x4 PSYCH: Calm Pt update on day of discharge Patient reports he is feeling much better. Swelling has improved. He is anxious to go home. He was cleared by nephrology for discharge. 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 s/p PermCath placement. The patient had dialysis. He is renal function improved and dialysis was discontinued. He had residual bilateral lower extremity swelling. He was started on Lasix and responded well to the Lasix. He is discharged on Lasix, prednisone, CellCept, and nifedipine per nephrology recommendations. He is to follow up outpatient with Dr. Mayer. Hypertension: Patient treated with nifedipine. He is discharged on the same. Thrombocytopenia: This was thought to be due to liver cirrhosis. It remained stable. Cirrhosis- likely due to alcohol-patient was followed by GI. He is advised to follow up outpatient. Anemia: Stable. Likely due to liver disease, renal disease, hypersplenism.- s/p EGD / colonoscopy with gastric erosions/ diverticulosis and internal/external hemorrhoids. continue PPI. H/O ETOH abuse-patient counselled on drinking cessation. Pt Condition on Discharge: Good Discharge Disposition: Discharge Home Discharge Time: <= 30 minutes Discharge Instructions DIET: Follow Instructions for: Heart Healthy Diet Activities you can perform: Regular-No Restrictions Follow up Referrals: Gastroenterology - 2 Weeks @ [facility] - 2 Weeks with Fredo Mayer MD New Medications: Furosemide (Lasix) 40 Mg Tab 40 MG PO DAILY #30 Ref 0 TAB Mycophenolate (Cellcept) 500 Mg Tab 500 MG PO BID@06,18 #60 TAB Nifedipine ER 24 HR (Nifedipine ER 24 HR) 60 Mg Tab 60 MG PO DAILY #30 TAB Pantoprazole (Pantoprazole) 40 Mg Tab 40 MG PO DAILY #30 TAB Prednisone (Prednisone) 20 Mg Tab 20 MG PO DAILY #30 TAB Discontinued Medications: ([Antibiotic]) 1 CAP PO DIRECTED Infection Marlyn Mcwilliams MD Dec 22, 2016 15:33
[2016-12-22] MEDS ORDERED: PANT40TA3 PO (15:36)
[2016-12-22 16:00] VITALS: BP 141/82; PULSE 92; RESP 17; TEMP 96; O2SAT 98
[2016-12-22 20:57] VITALS: BP 127/77; PULSE 96; RESP 18; TEMP 96.8; O2SAT 98
[2016-12-23] VITALS: BP 126/74; PULSE 96; RESP 18; TEMP 97.1; O2SAT 99
[2016-12-23] MEDS: CHLORHEXIDINE GLUCONATE 2 % 1 PACK (2 CLOTHS) TOP SCH (04:00)
[2016-12-23 04:28] VITALS: BP 124/70; PULSE 94; RESP 18; TEMP 97.3; O2SAT 95
[2016-12-23] MEDS: SODIUM CHLORIDE 0.9% FLUSH 5 ML FLUSH FLUSH SCH ×2 (05:02→08:52)
[2016-12-23] MEDS: ACETAMINOPHEN/HYDROcodone 325 MG/5 MG TAB PO PRN ×3 (05:02→13:17)
[2016-12-23] MEDS: MYCOPHENOLATE MOFETIL 500 MG TAB PO SCH (05:02)
[2016-12-23] MEDS: LORazepam 1 MG TAB PO PRN ×3 (05:03→13:17)
[2016-12-23] MEDS: ALUMINUM/MAGNESIUM/SIMETH 30 ML CUP PO PRN ×2 (05:04→08:51)
[2016-12-23 08:00] VITALS: BP 137/85; PULSE 89; RESP 16; TEMP 96.6; O2SAT 99
[2016-12-23] MEDS: NIFEdipine 60 MG SUSTAINED RELEASE TAB PO SCH (08:50)
[2016-12-23] MEDS: predniSONE 20 MG TAB PO SCH (08:50)
[2016-12-23] MEDS: PANTOPRAZOLE SOD 40 MG DELAYED RELEASE TAB PO SCH (08:50)
[2016-12-23] MEDS: FUROSEMIDE 40 MG/4 ML VIAL IV PUSH SCH (08:51)
[2016-12-23] MEDS: SEVELAMER CARBONATE 800 MG TAB PO SCH ×2 (08:52→12:00)
--- NOTE | 2016-12-23 10:36 | HHI.NPPN ---
Subjective Complaints: Obesity General Problems: Edema, Hypertension Renal Failure: Acute History of Present Illness 46 y/o male who presented to ER with nausea/vomiting. Found to be in renal failure with Cr 17.2, BUN 249, K 5.4, CO2 13. We were consulted for further management. Additional Remarks Patient is alert,leg swelling also improving, feeling better, appetite is good. Review of Systems General Constitutional: Fatigue Cardiovascular Cardiac: Edema Objective Data Data 12/22/16 12/23/16 19:00 07:00 Intake Total 720 ml Output Total 950 ml Balance -950 ml 720 ml Intake Oral 720 ml Output Urine Total 950 ml # Voids 4 # Bowel Movements 0 Vital Signs Date Time Temp Pulse Resp B/P Pulse Ox O2 Delivery O2 Flow Rate FiO2 12/23/16 08:00 96.6 89 16 137/85 99 12/23/16 04:28 97.3 94 18 124/70 95 12/23/16 00:00 97.1 96 18 126/74 99 12/22/16 20:57 96.8 96 18 127/77 98 12/22/16 16:00 96.0 92 17 141/82 98 12/22/16 12:00 97.2 93 18 139/85 99 -: 12/20/16 0851 12/22/16 0550 Tubes & Lines: Perma-Cath Physical Exam General Appearance: Well Nourished, No Acute Distress, Comfortable, Obese Eyes Eye Exam: Pupils Equal Throat Throat Exam: Oral Mucosa [place] & Moist Pulmonary Resp Exam: Clear Bilaterally, Breath Sounds Equal, No Distress Cardiology CV Exam: Regular, Normal Sinus Rhythm, Good Perfusion Gastrointestinal/Abdomen GI Exam: Soft, Non-Tender, Bowel Sounds Present, Positive Bowel Movement Musculoskeletal MS Exam: Joints Intact, Normal Gait, Normal Tone Integumentary Skin Exam: Clear, Warm, Dry, Intact Extremeties Extremities Exam: Trace Edema Neurologic Neuro Exam: Alert, Awake, Oriented, Speech Clear Assessment/Plan Discussed Condition With: Patient Assessment Summary: SAL/Acute Renal Failure, Fluid/Volume Overload, Proteinuria Problem List: (1) Acute renal failure Plan: 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 The disease appears to be active. 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 Patient is aware. He has been placed on CellCept daily had diarrhea and wanted to have Imodium, it is likely due to CellCept; also on prednisone 60 mg po daily x 30 days and then begin taper (beginning 12/22/16) dialysis initiated 11/19. He was on -- dialysis Now urine out put is better. Creatinine continue to improve. continue CellCept and Prednisone. Has more edema, on Lasix, BP is better , on Nifedipine. PermCath was removed. can be discharged on Prednisone 20 mg daily, CellCept and Lasix 40 mg daily. Now new BMP. Awaiting Medicaid for D/C. To follow by Dr. Mayer. 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 plt count 50 No evidence of thrombotic microangiopathy. (3) Cirrhosis Plan: per findings on Ct scan long hx of heavy drinking GI following s/p EGD / colonoscopy: gastric erosions/ diverticulosis and internal/external hemorrhoids on PPI Problem Qualifiers (1) Acute renal failure: Qualified Code: N17.0 - Acute renal failure with tubular necrosis (2) Cirrhosis: Glenny Williamson MD Dec 23, 2016 10:35
[2016-12-23 12:00] VITALS: BP 113/73; PULSE 92; RESP 17; TEMP 96; O2SAT 100
[2017-03-04] MEDS ORDERED: PRED20 PO (09:06)
[2017-03-26] MEDS ORDERED: MULTTAB67 PO (13:47)
[2017-03-26] MEDS ORDERED: MAGO400T2 (14:02)
[2017-03-26] MEDS ORDERED: POTA10CA PO (14:02)
[2017-03-26] MEDS ORDERED: LOSA50TA PO (14:02)
[2017-03-26] MEDS ORDERED: GAS-CAP3 PO (14:06)
[2017-03-26] MEDS ORDERED: SACC1CAP3 PO (14:06)
[2017-03-26] MEDS ORDERED: PEPT262S PO (14:06)
[2017-03-26] MEDS ORDERED: LOPE-1 PO (14:06)
[2017-03-26] MEDS ORDERED: CIPR500T2 PO (15:09)
[2017-04-01] MEDS ORDERED: LOSA100T PO (10:13)
== END 2016-12-23 14:53 | disposition home or self-care (01) | DRG 683 ==
LOC: PHED 14:01 → PHEDA 19:20 → PHEDH 23:09 → HCIS 11-19 02:37 → N05A 11-26 17:23
PROVIDERS: ADMIT Family Medicine; ATTEND Family Medicine
PROC: 05HM33Z Insertion of Infusion Device into Right Internal Jugular Vein, Percutaneous Approach (ICD-10-PCS; principal; 2016-11-19)
PROC: 3E053GC Introduction of Other Therapeutic Substance into Peripheral Artery, Percutaneous Approach (ICD-10-PCS; 2016-11-19)
PROC: 5A1D60Z (ICD-10-PCS; 2016-11-19)
PROC: 0TB03ZX Excision of Right Kidney, Percutaneous Approach, Diagnostic (ICD-10-PCS; 2016-11-22)
PROC: 05HM33Z Insertion of Infusion Device into Right Internal Jugular Vein, Percutaneous Approach (ICD-10-PCS; 2016-11-26)
PROC: 0DB68ZX Excision of Stomach, Via Natural or Artificial Opening Endoscopic, Diagnostic (ICD-10-PCS; 2016-12-03)
PROC: 0DJD8ZZ Inspection of Lower Intestinal Tract, Via Natural or Artificial Opening Endoscopic (ICD-10-PCS; 2016-12-03)
PROC: 05PY33Z Removal of Infusion Device from Upper Vein, Percutaneous Approach (ICD-10-PCS; 2016-12-21)
DX: N17.0 Acute kidney failure with tubular necrosis (principal); L03.116 Cellulitis of left lower limb; D69.59 Other secondary thrombocytopenia; K70.30 Alcoholic cirrhosis of liver without ascites; Z68.41 Body mass index [BMI] 40.0-44.9, adult; K92.1 Melena; I97.620 Postprocedural hemorrhage of a circulatory system organ or structure following other procedure; E83.39 Other disorders of phosphorus metabolism; N02.8 Recurrent and persistent hematuria with other morphologic changes; E87.5 Hyperkalemia; N05.7 Unspecified nephritic syndrome with diffuse crescentic glomerulonephritis; F10.21 Alcohol dependence, in remission; I10 Essential (primary) hypertension; K21.9 Gastro-esophageal reflux disease without esophagitis; E66.01 Morbid (severe) obesity due to excess calories; D63.8 Anemia in other chronic diseases classified elsewhere; K64.4 Residual hemorrhoidal skin tags; K64.8 Other hemorrhoids; K57.30 Diverticulosis of large intestine without perforation or abscess without bleeding; D73.1 Hypersplenism; K29.70 Gastritis, unspecified, without bleeding; Y83.8 Other surgical procedures as the cause of abnormal reaction of the patient, or of later complication, without mention of misadventure at the time of the procedure; L29.9 Pruritus, unspecified; E87.70 Fluid overload, unspecified
CPT/HCPCS: 36556; 36558; 36589; 50200; 71010; 74176; 76775; 76937; 77001; 77012; 80048; 80053; 80069; 80074; 80076; 81001; 82103; 82105; 82272; 82436; 82550; 82570; 82595; 82728; 82784; 83010; 83036; 83516; 83520; 83540; 83550; 83605; 83615; 83690; 83735; 84100; 84133; 84156; 84165; 84300; 85025; 85027; 85610; 85730; 86021; 86038; 86160; 86256; 86317; 86708; 86803; 87040; 87340; 88305; 88312; 90935; 93005; 93970; 93998; 96365; 96367; 96374; 96375; 99152; 99153; C1750; C1752; C1769; J0690; J1200; J1580; J1644; J1940; J2060; J2250; J2270; J2405; J2543; J2550; J2720; J2930; J3010; J3370; J7030; J7040; J7050; J7512; J7517; P9047

== ENCOUNTER 2016-12-25 19:54 | Inpatient (IN) | payer MEDICAID, OTHER ==
[~2016-12-25] VITALS: Ht 193 cm; Wt 139.0 kg
[~2016-12-25 19:54] MED LIST changes: -BACT800T5 PO; +FURO1TAB60 PO; +MYCO500 PO; +NIFE60TA8 PO; +PANT40TA3 PO; +PRED20 PO
[2016-12-25 20:00] VITALS: BP 170/82; PULSE 118; RESP 22; TEMP 98.5; O2SAT 98
[2016-12-25 21:27] VITALS: RESP 20
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
--- NOTE | 2016-12-25 22:11 | RADRPT ---
EXAM DATE/TIME: 12/25/2016 21:45 [facility] COMPARISON: CHEST SINGLE AP, November 18, 2016, 16:49. INDICATIONS : Shortness of breath, chest pain. MEDICAL HISTORY : Renal failure. SURGICAL HISTORY : None. ENCOUNTER: Initial ACUITY: 3 days PAIN SCORE: 6/10 LOCATION: Bilateral chest FINDINGS: Heart is moderately enlarged but stable compared to the prior study. The lungs are clear. There is no evidence of acute congestion or airspace disease. CONCLUSION: Cardiomegaly without evidence of acute cardiopulmonary process. Bakari Amado MD on December 25, 2016 at 22:09 Board Certified Radiologist. This report was verified electronically.
[2016-12-25 22:23] LABS: AUTOMATED NEUTROPHIL # 12.4 TH/MM3 (1.8-7.7); BASOPHIL % 0.1 % (0.0-2.0); HEMO FLAGS DIFF FINAL; LYMPH % 9.3 % (9.0-44.0); LYMPHOCYTE # 1.4 TH/MM3 (1.0-4.8); MEAN CELL VOLUME 92.6 FL (80.0-100.0); MEAN CORPUSCULAR HEMOGLOBIN 31.7 PG (27.0-34.0); MEAN CORPUSCULAR HGB CONC 34.2 % (32.0-36.0); MONO % 8.8 % (0.0-8.0); NEUT % 81.8 % (16.0-70.0); PLATELET COUNT 154 TH/MM3 (150-450); RED BLOOD COUNT 3.56 MIL/MM3 (4.50-5.90); RED CELL DISTRIBUTION WIDTH 14.4 % (11.6-17.2); WHITE BLOOD COUNT 15.2 TH/MM3 (4.0-11.0)
[2016-12-25 22:51] LABS: ALKALINE PHOSPHATASE 111 U/L (45-117); ALT (GPT) 47 U/L (12-78); ANION GAP 14 MEQ/L (5-15); AST (GOT) 25 U/L (15-37); BICARBONATE 23.7 MEQ/L (21.0-32.0); BLOOD UREA NITROGEN 134 MG/DL (7-18); CHLORIDE 97 MEQ/L (98-107); GLOMERULAR FILTRATION RATE 14 ML/MIN (>89); SODIUM (NA) 135 MEQ/L (136-145)
[2016-12-25 23:14] VITALS: BP 168/68; PULSE 100; RESP 20; O2SAT 98
[2016-12-25] MEDS ORDERED: SODIUM CHLORIDE 0.9% FLUSH 5 ML FLUSH FLUSH PRN (23:15)
[2016-12-25] MEDS ORDERED: NALOXONE HCL 0.4 MG/ML AMP IV PRN (23:15)
[2016-12-26] VITALS (9 sets, daily range): BP systolic 131–170; BP diastolic 66–87; PULSE 92–102; RESP 18–20; TEMP 96.8–98.4; O2SAT 95–99
[2016-12-26] MEDS: HEPARIN SODIUM - SQ 10,000 UNITS/ML VIAL SQ SCH ×4 (00:34→23:54)
[2016-12-26] MEDS ORDERED: diphenhydrAMINE HCL 25 MG CAP PO ONE (05:15)
[2016-12-26] MEDS: ACETAMINOPHEN 325 MG TAB PO PRN ×3 (05:32→19:20)
[2016-12-26 05:34] LABS: BASOPHIL % 0.2 % (0.0-2.0); EOSINOPHIL % 0.1 % (0.0-4.0); HEMATOCRIT 31.3 % (39.0-51.0); HEMO FLAGS DIFF FINAL; LYMPH % 15.5 % (9.0-44.0); LYMPHOCYTE # 2.6 TH/MM3 (1.0-4.8); MEAN CORPUSCULAR HEMOGLOBIN 31.6 PG (27.0-34.0); MONO % 12.1 % (0.0-8.0); NEUT % 72.1 % (16.0-70.0); PLATELET COUNT 136 TH/MM3 (150-450); RED BLOOD COUNT 3.37 MIL/MM3 (4.50-5.90); RED CELL DISTRIBUTION WIDTH 13.9 % (11.6-17.2); WHITE BLOOD COUNT 16.6 TH/MM3 (4.0-11.0)
[2016-12-26 06:00] LABS: BICARBONATE 22.1 MEQ/L (21.0-32.0); POTASSIUM 4.1 MEQ/L (3.5-5.1)
--- NOTE | 2016-12-26 07:50 | HHI.HP ---
[facility] Service [facility] Primary Care Physician No Primary Care Physician Admission Diagnosis Acute Renal Failure, Symptomatic Volume Overload Diagnoses: (1) Acute renal failure Diagnosis: Principal Chief Complaint: ' I'm not feeling well'. Travel History International Travel<30 Days: No Contact w/Intl Traveler <30 Da: No Traveled to Known Affected Are: No History of Present Illness patient is a 46 y/o male, known to me from previous admission who was diagnosed with glomerulonephritis last admission, presentee back to ER with generalized weakness and worsening swelling of the legs. he says that he had his last dialysis two weeks ago after his renal function remained stable. he says that over the past two week he could barely void. he says that he's noticed that the swelling of his legs has been getting worse. he's complaining of poor oral intake and generalized weakness.he denies any chest pain, nausea or vomiting but complaining of abdominal ' pressure'. he was being followed up by . Review of Systems Constitutional: COMPLAINS OF: Fatigue, Change in appetite, DENIES: Fever, Weight loss, Chills, Night Sweats Eyes: DENIES: Blurred vision, Diplopia, Vision loss, Double Vision Ears, nose, mouth, throat: DENIES: Tinnitus, Vertigo, Throat pain, Epistaxis Respiratory: DENIES: Apneas, Cough, Snoring, Wheezing, Hemoptysis, Sputum production, Shortness of breath Cardiovascular: COMPLAINS OF: Lower Extremity Edema, DENIES: Chest pain, Palpitations, Syncope, Dyspnea on Exertion, PND, Orthopnea, Claudication Gastrointestinal: COMPLAINS OF: Nausea, DENIES: Abdominal pain, Black stools, Bloody stools, Constipation, Diarrhea, Vomiting, Difficulty Swallowing, Anorexia Genitourinary: DENIES: Urinary frequency, Urgency, Hematuria, Dysuria Musculoskeletal: DENIES: Joint pain, Muscle aches, Stiffness, Joint Swelling Integumentary: DENIES: Rash Neurologic: DENIES: Abnormal gait, Headache, Localized weakness, Paresthesias, Seizures, Speech Problems, Tremor, Poor Balance Psychiatric: DENIES: Anxiety, Confusion, Mood changes, Depression, Hallucinations, Agitation, Suicidal Ideation, Homicidal Ideation, Delusions Past Family Social History Past Medical History glomerulonephritis hypertension anemia Past Surgical History ortho surgeries on hands and feet. Reported Medications Pantoprazole (Pantoprazole Sodium) 40 Mg Tab 40 Mg PO DAILY Lasix (Furosemide) 40 Mg Tab 40 Mg PO DAILY Cellcept (Mycophenolate Mofetil) 500 Mg Tab 500 Mg PO BID@06,18 Prednisone 20 Mg Tab 20 Mg PO DAILY Nifedipine ER 24 HR (Nifedipine) 60 Mg Tab 60 Mg PO DAILY Allergies: Coded Allergies: Bactrim (Verified Allergy, Severe, 12/25/16) Active Ordered Medications Current Medications IV Flush (NS Flush) 2 ml UNSCH PRN FLUSH FLUSH AFTER USING IV ACCESS; Start at 23:15 IV Flush (NS Flush) 2 ml BID FLUSH ; Start 12/26/16 at 09:00 Heparin Sodium (Porcine) (Heparin Inj) 5,000 units Q8H SQ Last administered on 12/26/16 00:34; Start 12/26/16 at 00:00 Naloxone HCl (Narcan Inj) 0.4 mg UNSCH PRN IV SEE LABEL COMMENTS; Start at 23:15 Acetaminophen (Tylenol) 650 mg Q4H PRN PO headaches/pain/ fever >101 Last administered on 12/26/16 05:32; Start 12/26/16 at 05:15 Diphenhydramine HCl (Benadryl) 25 mg ONCE ONCE PO Last administered on 05:32; Start 12/26/16 at 05:15; Stop 12/26/16 at 05:16; Status DC Social History doesn't smoke. quit drinking. Physical Exam Vital Signs Vital Signs Date Time Temp Pulse Resp B/P Pulse Ox O2 Delivery O2 Flow Rate FiO2 12/26/16 05:22 96 12/26/16 04:35 97.3 101 18 144/87 98 12/26/16 03:24 101 20 170/66 98 12/25/16 23:14 100 20 168/68 98 12/25/16 21:27 20 12/25/16 20:00 98.5 118 22 170/82 98 Physical Exam GENERAL: This is a well-nourished, well-developed patient, in no apparent distress. SKIN: No rashes, ecchymoses or lesions. Cool and dry. HEAD: Atraumatic. Normocephalic. No temporal or scalp tenderness. EYES: Pupils equal round and reactive. Extraocular motions intact. No scleral icterus. No injection or drainage. ENT: Nose without bleeding, purulent drainage or septal hematoma. Throat without erythema, tonsillar hypertrophy or exudate. Uvula midline. Airway patent. NECK: Trachea midline. No JVD or lymphadenopathy. Supple, nontender, no meningeal signs. CARDIOVASCULAR: Regular rate and rhythm without murmurs, gallops, or rubs. RESPIRATORY: Clear to auscultation. Breath sounds equal bilaterally. No wheezes , rales, or rhonchi. GASTROINTESTINAL: Abdomen soft, non-tender, nondistended. No hepato-splenomegaly , or palpable masses. No guarding. MUSCULOSKELETAL: Extremities with bilateral pedal edema. NEUROLOGICAL: Awake and alert. Cranial nerves II through XII intact. Motor and sensory grossly within normal limits. Five out of 5 muscle strength in all muscle groups. Normal speech. Laboratory Laboratory Tests Test 12/25/16 12/26/16 22:00 05:06 White Blood Count 15.2 16.6 Red Blood Count 3.56 3.37 Hemoglobin 11.3 10.7 Hematocrit 33.0 31.3 Mean Corpuscular Volume 92.6 93.0 Mean Corpuscular Hemoglobin 31.7 31.6 Mean Corpuscular Hemoglobin 34.2 34.0 Concent Red Cell Distribution Width 14.4 13.9 Platelet Count 154 136 Mean Platelet Volume 7.3 7.3 Neutrophils (%) (Auto) 81.8 72.1 Lymphocytes (%) (Auto) 9.3 15.5 Monocytes (%) (Auto) 8.8 12.1 Eosinophils (%) (Auto) 0.0 0.1 Basophils (%) (Auto) 0.1 0.2 Neutrophils # (Auto) 12.4 12.0 Lymphocytes # (Auto) 1.4 2.6 Monocytes # (Auto) 1.3 2.0 Eosinophils # (Auto) 0.0 0.0 Basophils # (Auto) 0.0 0.0 CBC Comment DIFF FINAL DIFF FINAL Differential Comment Sodium Level 135 135 Potassium Level 4.0 4.1 Chloride Level 97 98 Carbon Dioxide Level 23.7 22.1 Anion Gap 14 15 Blood Urea Nitrogen 134 134 Creatinine 4.60 4.62 Estimat Glomerular Filtration 14 14 Rate Random Glucose 166 141 Calcium Level 8.2 7.9 Total Bilirubin 1.0 Aspartate Amino Transf 25 (AST/SGOT) Alanine Aminotransferase 47 (ALT/SGPT) Alkaline Phosphatase 111 Total Creatine Kinase 57 52 Troponin I 0.12 0.14 B-Type Natriuretic Peptide 21 Total Protein 5.2 Albumin 2.3 Result Diagram: 12/26/16 0506 12/26/16 0506 Imaging Last Impressions Chest X-Ray 12/25/162123 Signed Impressions: Service Date/Time: Sunday, December 25, 2016 21:45 - CONCLUSION: Cardiomegaly without evidence of acute cardiopulmonary process. Bakari Amado MD EKG; sinus tachycardia Assessment and Plan Assessment and Plan A/P - chronic renal insufficiency due to glomerulonephritis- off HD since two weeks ago resume prednisone and Cellcept- consulted nephrology- will monitor renal function -mildly elevated troponin- no chest pain or EKG chnages- due to renal insufficiency -hypertension; resume Nifedipine- will monitor and adjust the regimen as needed. -anemia- due to chronic disease- stable- will monitor -anxiety; xanax as needed -DVT prophylaxis with subq heparin Discussed Condition With the patient. Physician Certification 2 Midnight Certification Type: Admission for Inpatient Services Order for Inpatient Services The services are ordered in accordance with Medicare regulations or non- Medicare payer requirements, as applicable. In the case of services not specified as inpatient-only, they are appropriately provided as inpatient services in accordance with the 2-midnight benchmark. Estimated LOS (days): 2 days is the estimated time the patient will need to remain in the hospital, assuming treatment plan goals are met and no additional complications. Post-Hospital Plan: Home Problem Qualifiers (1) Acute renal failure: Qualified Code: N17.9 - Acute renal failure, unspecified acute renal failure type Sachi Medeiros MD Dec 26, 2016 07:50
[2016-12-26] MEDS ORDERED: PILL SPLITTER OTHER PRN (08:00)
[2016-12-26] MEDS ORDERED: PANTOPRAZOLE SOD 40 MG DELAYED RELEASE TAB PO SCH (09:00)
[2016-12-26] MEDS: SODIUM CHLORIDE 0.9% FLUSH 5 ML FLUSH FLUSH SCH ×2 (09:00→20:38)
[2016-12-26] MEDS ORDERED: predniSONE 20 MG TAB PO SCH ×2 (09:00)
[2016-12-26] MEDS ORDERED: FUROSEMIDE 40 MG TAB PO SCH (09:00)
--- NOTE | 2016-12-26 10:39 | EKG ---
Date Performed: 12/25/2016 Time Performed: 20:14:47 PTAGE: 46 years EKG: SINUS TACHYCARDIA POSSIBLE ANTERIOR MYOCARDIAL INFARCTION ABNORMAL RHYTHM ECG NO PREVIOUS TRACING DOCTOR: Marciano Chris Interpretating Date/Time 12/26/2016 10:38:39
[2016-12-26] MEDS ORDERED: predniSONE 20 MG TAB PO ONE (11:15)
--- NOTE | 2016-12-26 11:27 | PD.CONS ---
[facility] Service Nephrology Consult Requested By Dr. Wlal Reason for Consult Acute renal failure Primary Care Physician No Primary Care Physician History of Present Illness This is a 46 y/o male pt known to our service. He was hospitalized from 11/18/16 to 12/23/16 where he was admitted for acute renal failure with a creatinine of 17. He was immediately started on hemodialysis beginning 11/19, was dialysis dependent for several weeks. We did a renal biopsy early in the course of his treatment, showing IgA nephropathy with RPGN, was started on Cellcept 500 mg BID and high dose steroids. He actually did show signs of renal recovery, began making more urine and his last dialysis was 12/14. His creatinine at that time was 3.4. He was discharged home on prednisone 20 mg daily, we had instructed him over the phone to take 40 mg daily. He never did fill the cellcept Rx. He presented to ER last night, 3 days after discharge with TITUS/SOB, edema/anasarca , and decreased urine output. His creatinine on admission is 4.6. he does demonstrate fluid overload. We were consulted for management, he is a full code. Of note he has positive troponins on admission, no reports of chest pain. 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 cirrhosis Previous cellulitis Morbid obesity Alcoholism Past Surgical History finger permcath placement and removal Reported Medications Pantoprazole (Pantoprazole Sodium) 40 Mg Tab 40 Mg PO DAILY Lasix (Furosemide) 40 Mg Tab 40 Mg PO DAILY Cellcept (Mycophenolate Mofetil) 500 Mg Tab 500 Mg PO BID@18 Prednisone 20 Mg Tab 20 Mg PO DAILY Nifedipine ER 24 HR (Nifedipine) 60 Mg Tab 60 Mg PO DAILY Active Ordered Medications Current Medications Medications (Trade) Dose Ordered Sig/Noni Route Start Time Stop Time Status Last Admin (NS Flush) 2 ml UNSCH PRN FLUSH 2/28/17 23:15 (NS Flush) 2 ml BID FLUSH 12/26/16 09:00 (Heparin Inj) 5,000 units Q8H SQ 12/26/16 00:00 12/26/16 00:34 (Narcan Inj) 0.4 mg UNSCH PRN IV 12/25/16 23:15 (Tylenol) 650 mg Q4H PRN PO 12/26/16 05:15 12/26/16 05:32 (Lasix) 40 mg DAILY PO 12/26/16 09:00 (Cellcept) 500 mg BID@06,18 PO 12/26/16 18:00 (Procardia Xl) 60 mg DAILY PO 12/26/16 09:00 (Protonix) 40 mg DAILY PO 12/26/16 09:00 (Xanax) 0.125 mg Q6H PRN PO 12/26/16 07:45 (Pill Splitter) 1 ea UNSCH PRN OTHER 12/26/16 08:00 (Deltasone) 40 mg DAILY PO 12/26/16 09:00 Family History No hx of renal disorders Social History No smoking hx long hx of ETOH, quit 14 months ago lives with parents at this time, [place] lives on a boat he is a search marketing coordinator with [employer] full code (Helen Gaspar) Physical Exam Vital Signs Vital Signs Date Time Temp Pulse Resp B/P Pulse Ox O2 Delivery O2 Flow Rate FiO2 12/26/16 08:00 97.6 94 20 140/84 98 12/26/16 05:22 96 12/26/16 04:35 97.3 101 18 144/87 98 12/26/16 03:24 101 20 170/66 98 12/25/16 23:14 100 20 168/68 98 12/25/16 21:27 20 12/25/16 20:00 98.5 118 22 170/82 98 Physical Exam Morbidly obese male, sleeping, takes time to converse once awake, oriented x 3 but slow to answer Lungs: clear but diminished in bases Abd: round, obese, non tender, no hernias CV: S1/S2, regular rate/rhythm Ext: 3+ edema in lower extremities, some erythema bilaterally Laboratory Laboratory Tests Test 12/25/16 12/26/16 22:00 05:06 White Blood Count 15.2 16.6 Red Blood Count 3.56 3.37 Hemoglobin 11.3 10.7 Hematocrit 33.0 31.3 Mean Corpuscular Volume 92.6 93.0 Mean Corpuscular Hemoglobin 31.7 31.6 Mean Corpuscular Hemoglobin 34.2 34.0 Concent Red Cell Distribution Width 14.4 13.9 Platelet Count 154 136 Mean Platelet Volume 7.3 7.3 Neutrophils (%) (Auto) 81.8 72.1 Lymphocytes (%) (Auto) 9.3 15.5 Monocytes (%) (Auto) 8.8 12.1 Eosinophils (%) (Auto) 0.0 0.1 Basophils (%) (Auto) 0.1 0.2 Neutrophils # (Auto) 12.4 12.0 Lymphocytes # (Auto) 1.4 2.6 Monocytes # (Auto) 1.3 2.0 Eosinophils # (Auto) 0.0 0.0 Basophils # (Auto) 0.0 0.0 CBC Comment DIFF FINAL DIFF FINAL Differential Comment Sodium Level 135 135 Potassium Level 4.0 4.1 Chloride Level 97 98 Carbon Dioxide Level 23.7 22.1 Anion Gap 14 15 Blood Urea Nitrogen 134 134 Creatinine 4.60 4.62 Estimat Glomerular Filtration 14 14 Rate Random Glucose 166 141 Calcium Level 8.2 7.9 Total Bilirubin 1.0 Aspartate Amino Transf 25 (AST/SGOT) Alanine Aminotransferase 47 (ALT/SGPT) Alkaline Phosphatase 111 Total Creatine Kinase 57 52 Troponin I 0.12 0.14 B-Type Natriuretic Peptide 21 Total Protein 5.2 Albumin 2.3 (Helen Gaspar) Result Diagram: 12/26/16 0506 12/26/16 0506 Imaging Last 72 hours Impressions Chest X-Ray 12/25/162123 Signed Impressions: Service Date/Time: Sunday, December 25, 2016 21:45 - CONCLUSION: Cardiomegaly without evidence of acute cardiopulmonary process. Bakari Amado MD (Helen Gaspar) Assessment and Plan Problem List: (1) Acute renal failure Plan: in a pt with resolving renal failure who was dialysis dependent until due to Iga nephropathy with RPGN exacerbation may be due to too rapidly reducing the rejection regimen (he did not fill the cellcept) K normal, however has low urine output and signs of fluid overload resume CellCept 500 BID, increase prednisone to 60 mg daily change Lasix to Bumex 2 mg IV BID monitor renal function, urine output if no improvement he may become dialysis dependent further course depending on response to above (2) RPGN (rapidly progressive glomerulonephritis) Plan: see above (3) IgA nephropathy determined by renal biopsy Plan: resume antirejection medications as above monitor renal function management as above (4) Thrombocytopenia Plan: improved compared to previous admission it was thought cirrhosis may have been the etiology (Helen Gaspar) Assessment and Plan patient was seen and examined. Agree with above assessment and plan. Will monitor his renal function. May need to restart dialysis. (Fredo Mayer MD) Problem Qualifiers (1) Acute renal failure: Qualified Code: N17.9 - Acute renal failure, unspecified acute renal failure type Helen Gaspar Dec 26, 2016 11:27 Fredo Mayer MD Dec 27, 2016 10:29
[2016-12-26] MEDS: ALPRAZolam 0.25 MG TAB PO PRN ×2 (12:30→20:37)
[2016-12-26] MEDS: NIFEdipine 60 MG SUSTAINED RELEASE TAB PO SCH (12:31)
[2016-12-26] MEDS: BUMETANIDE INJ 1 MG/4 ML VIAL IV PUSH SCH (18:00)
[2016-12-26] MEDS: MYCOPHENOLATE MOFETIL 500 MG TAB PO SCH (19:19)
[2016-12-27] MEDS: diphenhydrAMINE HCL 25 MG CAP PO PRN ×2 (02:14→23:41)
[2016-12-27] MEDS: MYCOPHENOLATE MOFETIL 500 MG TAB PO SCH ×2 (05:06→18:40)
[2016-12-27 05:19] LABS: AUTOMATED NEUTROPHIL # 10.4 TH/MM3 (1.8-7.7); BASOPHIL % 0.2 % (0.0-2.0); EOSINOPHIL # 0.1 TH/MM3 (0-0.4); EOSINOPHIL % 0.7 % (0.0-4.0); HEMATOCRIT 29.4 % (39.0-51.0); HEMO FLAGS DIFF FINAL; LYMPH % 16.6 % (9.0-44.0); LYMPHOCYTE # 2.4 TH/MM3 (1.0-4.8); MEAN CELL VOLUME 92.7 FL (80.0-100.0); MEAN CORPUSCULAR HEMOGLOBIN 32.2 PG (27.0-34.0); MEAN CORPUSCULAR HGB CONC 34.8 % (32.0-36.0); MONO % 11.5 % (0.0-8.0); PLATELET COUNT 121 TH/MM3 (150-450); RED BLOOD COUNT 3.17 MIL/MM3 (4.50-5.90); RED CELL DISTRIBUTION WIDTH 14.1 % (11.6-17.2); WHITE BLOOD COUNT 14.6 TH/MM3 (4.0-11.0)
[2016-12-27 05:43] LABS: BICARBONATE 23.2 MEQ/L (21.0-32.0); POTASSIUM 3.8 MEQ/L (3.5-5.1)
[2016-12-27 06:03] VITALS: BP 138/83; PULSE 95; RESP 18; TEMP 98.2; O2SAT 97
[2016-12-27 07:30] VITALS: BP 130/84; PULSE 89; RESP 20; TEMP 98.6; O2SAT 95
[2016-12-27] MEDS: SODIUM CHLORIDE 0.9% FLUSH 5 ML FLUSH FLUSH SCH ×2 (08:36→20:30)
[2016-12-27] MEDS: predniSONE 20 MG TAB PO SCH (08:37)
[2016-12-27] MEDS: NIFEdipine 60 MG SUSTAINED RELEASE TAB PO SCH (08:37)
[2016-12-27] MEDS: BUMETANIDE INJ 1 MG/4 ML VIAL IV PUSH SCH ×2 (08:38→18:40)
[2016-12-27] MEDS: ACETAMINOPHEN 325 MG TAB PO PRN ×2 (08:39→14:36)
[2016-12-27] MEDS: HEPARIN SODIUM - SQ 10,000 UNITS/ML VIAL SQ SCH ×3 (08:40→23:49)
--- NOTE | 2016-12-27 09:02 | HHI.PR ---
Subjective Remarks resting comfortably with no chest pain or sob. says that he's feeling better today. Objective Vitals Vital Signs Date Time Temp Pulse Resp B/P Pulse Ox O2 Delivery O2 Flow Rate FiO2 12/27/16 07:30 98.6 89 20 130/84 95 12/27/16 06:03 98.2 95 18 138/83 97 12/26/16 23:52 97.9 95 18 134/84 95 12/26/16 20:46 97.6 102 18 131/84 99 12/26/16 20:20 12 12/26/16 20:00 94 12/26/16 16:01 98.4 92 20 154/83 99 12/26/16 11:29 96.8 100 20 149/86 99 I/O 12/26/16 12/26/16 12/26/16 12/27/16 12/27/16 12/27/16 07:00 15:00 23:00 07:00 15:00 23:00 Intake Total 221 ml 700 ml Balance 221 ml 700 ml Intake Oral 221 ml 700 ml # Voids 4 # Bowel Movements 0 Result Diagram: 12/27/1644012/27/16440 Imaging Last Impressions Chest X-Ray 12/25/162123 Signed Impressions: Service Date/Time: Sunday, December 25, 2016 21:45 - CONCLUSION: Cardiomegaly without evidence of acute cardiopulmonary process. Bakari Amado MD Objective Remarks GENERAL: This is a well-nourished, well-developed patient, in no apparent distress. CARDIOVASCULAR: Regular rate and regular rhythm without murmurs, gallops, or rubs. RESPIRATORY: Clear to auscultation. Breath sounds equal bilaterally. No wheezes , rales, or rhonchi. GASTROINTESTINAL: Abdomen soft, non-tender, nondistended. Normal, active bowel sounds MUSCULOSKELETAL: Extremities with bilateral pedal edema. NEURO: Alert & Oriented x4 to person, place, time, situation. Moves all ext x4 Procedures none Medications and IVs Current Medications IV Flush (NS Flush) 2 ml UNSCH PRN FLUSH FLUSH AFTER USING IV ACCESS; Start at 23:15 IV Flush (NS Flush) 2 ml BID FLUSH Last administered on 12/27/16t 08:36; Start 12/26/16 at 09:00 Heparin Sodium (Porcine) (Heparin Inj) 5,000 units Q8H SQ Last administered on 12/27/16 08:40; Start 12/26/16 at 00:00 Naloxone HCl (Narcan Inj) 0.4 mg UNSCH PRN IV SEE LABEL COMMENTS; Start at 23:15 Acetaminophen (Tylenol) 650 mg Q4H PRN PO headaches/pain/ fever >101 Last administered on 12/27/16 08:39; Start 12/26/16 at 05:15 Diphenhydramine HCl (Benadryl) 25 mg ONCE ONCE PO Last administered on 05:32; Start 12/26/16 at 05:15; Stop 12/26/16 at 05:16; Status DC Furosemide (Lasix) 40 mg DAILY PO ; Start 12/26/16 at 09:00; Stop 12/26/16 at 11: 08; Status DC Mycophenolate Mofetil (Cellcept) 500 mg BID@,18 PO Last administered on 05:06; Start 12/26/16 at 18:00 Nifedipine (Procardia Xl) 60 mg DAILY PO Last administered on 12/27/16 08:37; Start 12/26/16 at 09:00 Pantoprazole Sodium (Protonix) 40 mg DAILY PO ; Start 12/26/16 at 09:00; Stop 12/26/16 at 11:08; Status DC Prednisone (Deltasone) 20 mg DAILY PO ; Start 12/26/16 at 09:00; Stop 12/26/16 at 09:00; Status DC Alprazolam (Xanax) 0.125 mg Q6H PRN PO ANXIETY Last administered on 12/26/16 20 :37; Start 12/26/16 at 07:45 Miscellaneous (Pill Splitter) 1 ea UNSCH PRN OTHER SEE LABEL COMMENTS; Start at 08:00 Prednisone (Deltasone) 40 mg DAILY PO ; Start 12/26/16 at 09:00; Stop 12/26/16 at 11:08; Status DC Prednisone (Deltasone) 60 mg DAILY PO Last administered on 12/27/16 08:37; Start 12/27/16 at 09:00 Prednisone (Deltasone) 20 mg ONCE ONCE PO Last administered on 12/26/16 12:30 ; Start 12/26/16 at 11:15; Stop 12/26/16 at 11:16; Status DC Bumetanide (Bumex Inj) 2 mg BID@09,18 IV PUSH Last administered on 12/27/16 08: 38; Start 12/26/16 at 18:00 Diphenhydramine HCl (Benadryl) 25 mg HS PRN PO insomnia Last administered on 02:14; Start 12/27/16 at 01:45 A/P Assessment and Plan A/P - 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 -mildly elevated troponin- due to renal insufficiency; no chest pain or EKG chnages- -hypertension; resumed Nifedipine- will monitor and adjust the regimen as needed. -anemia- due to chronic disease- stable- will monitor -anxiety; xanax as needed -DVT prophylaxis with subq heparin Discharge Planning awaiting nephrology follow-up and recommendations. Sachi Medeiros MD Dec 27, 2016 09:01
--- NOTE | 2016-12-27 10:51 | HHI.NPPN ---
Subjective Complaints: Obesity General Problems: Edema Renal Failure: Chronic, Acute Interval History Renal function is better. His urine output has increased. Edema persists. ( Helen Gaspar) Review of Systems General Constitutional: Fatigue (Helen Gaspar) Cardiovascular Cardiac: Edema (Helen Gaspar) Objective Data Data 12/26/16 12/27/16 19:00 07:00 Intake Total 700 ml Balance 700 ml Intake Oral 700 ml # Voids 4 # Bowel Movements 0 Vital Signs Date Time Temp Pulse Resp B/P Pulse Ox O2 Delivery O2 Flow Rate FiO2 12/27/16 07:30 98.6 89 20 130/84 95 12/27/16 06:03 98.2 95 18 138/83 97 12/26/16 23:52 97.9 95 18 134/84 95 12/26/16 20:46 97.6 102 18 131/84 99 12/26/16 20:20 12 12/26/16 20:00 94 12/26/16 16:01 98.4 92 20 154/83 99 12/26/16 11:29 96.8 100 20 149/86 99 (Helen Gaspar) -: 12/27/16 0441 12/27/16 0441 Physical Exam General Appearance: Well Developed, Well Nourished, Comfortable, Sleeping, Obese ( Helen Gaspar) Throat Throat Exam: Oral Mucosa [place] & Moist (Helen Gaspar) Pulmonary Resp Exam: Breath Sounds Equal, No Distress, Decreased Bases (Helen Gaspar) Cardiology CV Exam: Regular, Normal Sinus Rhythm (Helen Gaspar) Gastrointestinal/Abdomen GI Exam: Soft, Non-Tender (Helen Gaspar) Musculoskeletal MS Exam: Joints Intact, Normal Tone (Helen Gaspar) Integumentary Skin Exam: Clear, Warm, Dry, Intact (Helen Gaspar) Extremeties Extremities Exam: Pedal Pulses Palpable, Moderate Edema, Pitting Edema ( Helen Gaspar) Neurologic Neuro Exam: Alert, Awake, Oriented, Speech Clear, Moving All Extremities ( Helen Gaspar) Psychiatric Psych Exam: Appropriate Responses (Helen Gaspar) Assessment/Plan Discussed Condition With: Patient Assessment Summary: SAL/Acute Renal Failure, Fluid/Volume Overload, Hypertension Problem List: (1) Acute renal failure Plan: in a pt with resolving renal failure who was dialysis dependent until due to Iga nephropathy with RPGN exacerbation may be due to too rapidly reducing the rejection regimen (he did not fill the cellcept) medications were restarted, CellCept 500 BID and prednisone 60 mg daily) also on Bumex 2 mg IV BID monitor renal function, urine output no electrolyte concerns we will hold off on dialysis today, reevaluate need tomorrow further course depending on response to above (2) RPGN (rapidly progressive glomerulonephritis) Plan: see above (3) IgA nephropathy determined by renal biopsy Plan: continue resume antirejection medications as above monitor renal function management as above (4) Thrombocytopenia Plan: it was thought cirrhosis may have been the etiology monitor, improved compared to previous admission no active bleeding (Helen Gaspar) Problem List: (1) Acute renal failure Plan: in a pt with resolving renal failure who was dialysis dependent until due to Iga nephropathy with RPGN exacerbation may be due to too rapidly reducing the rejection regimen (he did not fill the cellcept) medications were restarted, CellCept 500 BID and prednisone 60 mg daily) also on Bumex 2 mg IV BID monitor renal function, urine output no electrolyte concerns we will hold off on dialysis today, reevaluate need tomorrow further course depending on response to above (2) RPGN (rapidly progressive glomerulonephritis) Plan: see above (3) IgA nephropathy determined by renal biopsy Plan: continue immunosuppressive medications as above monitor renal function management as above (4) Thrombocytopenia Plan: it was thought cirrhosis may have been the etiology monitor, improved compared to previous admission no active bleeding Plan patient was seen and examined. Some improvement in creatinine, will not dialyze him today. Increase CellCept to 1000 mg PO BID. (Fredo Mayer MD) Problem Qualifiers (1) Acute renal failure: Qualified Code: N17.9 - Acute renal failure, unspecified acute renal failure type Helen Gaspar Dec 27, 2016 10:51 Fredo Mayer MD Dec 27, 2016 15:18
[2016-12-27 12:55] VITALS: BP 136/84; PULSE 92; RESP 20; TEMP 98.6; O2SAT 94
[2016-12-27] MEDS ORDERED: RESP: ALBUTEROL 2.5 MG/3 ML NEB (PRN) INH (16:00)
[2016-12-27 16:27] VITALS: BP 123/73; PULSE 97; RESP 20; O2SAT 100
[2016-12-27] MEDS: ALPRAZolam 0.25 MG TAB PO PRN (16:34)
[2016-12-27] MEDS: ACETAMINOPHEN/HYDROcodone 325 MG/5 MG TAB PO PRN (18:43)
[2016-12-27 19:33] VITALS: BP 138/82; PULSE 97; RESP 18; O2SAT 99
[2016-12-27 20:00] VITALS: PULSE 92
[2016-12-28] VITALS (10 sets, daily range): BP systolic 110–148; BP diastolic 72–83; PULSE 91–103; RESP 18–20; TEMP 97.9–98.3; O2SAT 94–99
[2016-12-28] MEDS: ACETAMINOPHEN/HYDROcodone 325 MG/5 MG TAB PO PRN ×2 (02:47→11:37)
--- NOTE | 2016-12-28 03:58 | RADRPT ---
EXAM DATE/TIME: 12/28/2016 03:28 [facility] COMPARISON: CT ABDOMEN & PELVIS W CONTRAST, March 31, 2015, 16:53. INDICATIONS : Right flank pain today. ORAL CONTRAST: No oral contrast ingested. RADIATION DOSE: 22.80 CTDIvol (mGy) MEDICAL HISTORY : Hypertension. Renal failure, chronic. SURGICAL HISTORY : None. ENCOUNTER: Initial ACUITY: 1 day PAIN SCALE: 10/10 LOCATION: Right flank TECHNIQUE: Volumetric scanning of the abdomen and pelvis was performed. Using automated exposure control and ad justment of the mA and/or kV according to patient size, radiation dose was kept as low as reasonably achievable to obtain optimal diagnostic quality images. FINDINGS: LOWER LUNGS: Small bilateral pleural effusions. Infiltrate at the lateral left lung base. LIVER: Markedly cirrhotic liver appearance are in no evidence of biliary ductal dilatation. Abundant ascites . Massive intra-abdominal varices. SPLEEN: Stable without focal lesion. PANCREAS: Within normal limits. KIDNEYS: Normal in size and shape. There is no mass, stone, or hydronephrosis. ADRENAL GLANDS: Within normal limits. VASCULAR: Massive retroperitoneal varices. BOWEL/MESENTERY: Abundant ascites. No abnormal dilatation of bowel. ABDOMINAL WALL: Within normal limits. RETROPERITONEUM: There is no lymphadenopathy. BLADDER: No wall thickening or mass. REPRODUCTIVE: Within normal limits. INGUINAL: There is no lymphadenopathy or hernia. MUSCULOSKELETAL: Within normal limits for patient age. CONCLUSION: Liver cirrhosis and stigmata of portal hypertension. Abundant ascites. Small bilateral pleural effusi ons and left base pneumonia. Derek Krause MD on December 28, 2016 at 3:50 Board Certified Radiologist. This report was verified electronically.
[2016-12-28] MEDS: CEFEPIME INJ 1,000 MG in SODIUM CHLORIDE 0.9% INJ 100 ML IV SCH (04:28)
[2016-12-28] MEDS: MYCOPHENOLATE MOFETIL 500 MG TAB PO SCH ×2 (04:30→18:21)
[2016-12-28] MEDS: ACETAMINOPHEN 325 MG TAB PO PRN (05:54)
[2016-12-28] MEDS: MORPHINE SULFATE 4 MG/ML INJ IV PUSH PRN ×2 (06:33→09:23)
[2016-12-28] MEDS ORDERED: VANCOMYCIN INJ 1,500 MG in SODIUM CHLORID 0.9% 500 ML INJ 500 ML IV ONE (06:45)
[2016-12-28 06:49] LABS: AUTOMATED NEUTROPHIL # 17.9 TH/MM3 (1.8-7.7); BASOPHIL # 0.1 TH/MM3 (0-0.2); BASOPHIL % 0.3 % (0.0-2.0); EOSINOPHIL # 0.1 TH/MM3 (0-0.4); EOSINOPHIL % 0.4 % (0.0-4.0); HEMATOCRIT 29.6 % (39.0-51.0); HEMO FLAGS DIFF FINAL; LYMPH % 8.7 % (9.0-44.0); LYMPHOCYTE # 1.9 TH/MM3 (1.0-4.8); MEAN CELL VOLUME 92.5 FL (80.0-100.0); MEAN CORPUSCULAR HEMOGLOBIN 31.8 PG (27.0-34.0); MEAN CORPUSCULAR HGB CONC 34.4 % (32.0-36.0); MONO % 9.7 % (0.0-8.0); NEUT % 80.9 % (16.0-70.0); PLATELET COUNT 124 TH/MM3 (150-450); RED CELL DISTRIBUTION WIDTH 13.8 % (11.6-17.2); WHITE BLOOD COUNT 22.1 TH/MM3 (4.0-11.0)
--- NOTE | 2016-12-28 06:53 | HHI.PR ---
Addendum to Inpatient Note Addendum Reason: Additional Documentation Additional Information I was called by patient's nurse earlier during the night that patient just doesn 't look at his baseline. He was complaining of pain in his bilateral flank and abdomen at that time. He also is somebody who usually doesn't complain about pain and was not requiring medications. Chart reviewed at that time. Patient with IgA nephropathy/RPGN. He was at once on dialysis and was discharged after removal of his dialysis catheter as his kidney function was improving. However within 48 hours of discharge, patient returned back to hospital with acute renal failure. Therefore question whether these could be obstructive nephropathy from renal stones superimposed on RPGN. Therefore I had ordered for CT abdomen and pelvis without IV contrast. Reviewed CT abdomen once it was done. No obstructive renal stones. Massive ascites. Left base pneumonia was noted as well. Visualization is quite limited due to this massive ascites in regards to appendix/gallbladder. Massive retroperitoneal varices. I then got another phone call from patient's nurse because patient was still not improving. Patient's pain was still persistent. Therefore had come to see patient at the bedside. Patient is awake, alert, oriented. However he is shivering. Has tactile fever. Therefore asked to check the temperature and it was 103. He denies any nausea or vomiting or diarrhea. His main complaint is that of abdominal pain which is now mostly right upper and lower quadrant wrapping around his right flank. He reports that he is aware of his cirrhosis liver. He states this comes from years and years of drinking alcohol. He never had any paracenteses done in his life. Never had history of GI bleed. On exam Middle-aged man, looks acutely ill, tactile fever, shivering. In moderate distress from acute illness. Heart rate is tachycardic, regular, no murmur appreciated. Bilateral mild expiratory wheezing noted on lung exam. Abdomen is soft, massive ascites, bowel sounds are scant. Patient has pain even on light touch at right upper and lower abdomen. No rebound. No guarding. Bilateral lower extremitieswith pitting edema 2+. No calf asymmetry. Impression: Sepsislikely source is peritonitis Rule out appendicitis/rupture/cholecystitis Impending hemodynamic compromise Fever Acute on chronic renal failure IgA nephropathy/RPGN Plan: Patient was started on cefepime per creatinine clearance. We'll add Flagyl 500 mg IV every 6 hours. Blood cultures done stat. UA, urine culture if indicated CBC, CMP, lactic acid level. CT abdomen and pelvispersonally reviewed. No perforation, no hematoma. Left lower lobe pneumonia, with massive ascites, and massive retroperitoneal varices. Obtain abdominal ultrasound stat also to visualize liver, gallbladder, pancreas. IV contrast cannot be given for CT today patient's renal failure. Transfer patient to ICU for further care. Discussed with equipment cleaner collections clerk. Patient will be transferred to intensive's service for critical care management. Advised to give one dose of vancomycin 1500 mg IV stat. This was given. Maddi Wall MD Dec 28, 2016 06:53
[2016-12-28 07:18] LABS: ALT (GPT) 34 U/L (12-78); ANION GAP 16 MEQ/L (5-15); AST (GOT) 23 U/L (15-37); BLOOD UREA NITROGEN 135 MG/DL (7-18); CHLORIDE 97 MEQ/L (98-107); GLOMERULAR FILTRATION RATE 16 ML/MIN (>89); POTASSIUM 3.7 MEQ/L (3.5-5.1); SODIUM (NA) 135 MEQ/L (136-145)
[2016-12-28 07:20] LABS: ALKALINE PHOSPHATASE 94 U/L (45-117); TOTAL BILIRUBIN ADULT 1.2 MG/DL (0.2-1.0)
[2016-12-28] MEDS: metroNIDAZOLE 500 MG INJ 100 ML IV SCH ×4 (07:20→23:12)
--- NOTE | 2016-12-28 08:20 | RADRPT ---
EXAM DATE/TIME: 12/28/2016 06:43 [facility] COMPARISON: No previous studies available for comparison. INDICATIONS: Severe abdominal pain. MEDICAL HISTORY: Renal failure, chronic. Hypertension. ETOH. SURGICAL HISTORY: Orthopaedic surgery. ENCOUNTER: Initial ACUITY: 1 day PAIN SCORE: 10/10 LOCATION: Bilateral upper quadrant MEASUREMENTS: LIVER: 15.1 cm length COMMON DUCT: Non-visualized RIGHT KIDNEY: 12.2 x 8.2 x 9.2 cm LEFT KIDNEY: 13.9 x 6.5 x 6.1 cm SPLEEN: 16.3 cm length AORTA: 1.3cm maximal FINDINGS: The liver is small in size, heterogeneous in echo texture and nodular and contour suggesting cirrhosi s. Clinical correlation is recommended. Ascites is noted within the abdomen. It is difficult to co nfirm flow within the main portal vein raising the possibility of portal vein thrombus. Clinical cor relation is recommended. Enhanced CT or MRI of the abdomen may be helpful for further evaluation of the portal venous system if clinically indicated. No biliary ductal dilatation is noted. No focal h epatic mass is noted. The gallbladder is distended and its wall is thickened. Pericholecystic fluid is noted. The findings raise the possibility of acute cholecystitis. Clinical correlation is recom mended. There is a echogenic focus within the neck of the gallbladder consistent with non-shadowing stone or possible polyp. There is poor visualization of the pancreas due to shadowing bowel gas. Th ere is also poor visualization of the right kidney due to shadowing bowel gas. The left kidney is un remarkable without mass or hydronephrosis. The spleen is mildly enlarged. The abdominal aorta is un remarkable proximally. The mid and distal portions of the abdominal aorta are not well visualized. The inferior vena cava is not well visualized. CONCLUSION: 1. Flow within the main portal vein is not confirmed with certainty which raises the possibility of portal vein thrombus. CT or MRI of the abdomen with contrast may be helpful for father evaluation of this finding. 2. Small heterogeneous nodular liver consistent with cirrhosis. 3. Ascites. 4. Splenomegaly. 5. Distended thick walled gallbladder with pericholecystic fluid and possible stone or polyp in the neck. Clinical correlation is recommended to rule out acute cholecystitis. 6. Poor visualization of the pancreas and right kidney due to shadowing bowel gas. Veto Cortez MD on December 28, 2016 at 7:27 Board Certified Radiologist. This report was verified electronically.
[2016-12-28 08:23] LABS: BICARBONATE 22.4 MEQ/L (21.0-32.0); POTASSIUM 3.7 MEQ/L (3.5-5.1)
[2016-12-28] MEDS: SODIUM CHLORIDE 0.9% FLUSH 5 ML FLUSH FLUSH SCH ×2 (09:00→21:12)
[2016-12-28] MEDS: BUMETANIDE INJ 1 MG/4 ML VIAL IV PUSH SCH (09:22)
[2016-12-28] MEDS: HEPARIN SODIUM - SQ 10,000 UNITS/ML VIAL SQ SCH (09:23)
[2016-12-28] MEDS: predniSONE 20 MG TAB PO SCH (09:23)
[2016-12-28] MEDS: NIFEdipine 60 MG SUSTAINED RELEASE TAB PO SCH (10:55)
--- NOTE | 2016-12-28 11:19 | HHI.NPPN ---
Subjective Complaints: Obesity General Problems: Edema Renal Failure: Chronic, Acute Interval History Creatinine is better. He had 500 ml UOP since 8am. He had developed abdominal pain and fever. CT taken showing extensive ascites with possible cholelithiasis. Also has PNA. Surgery was consulted. He was started on Abx and transferred to [facility] [place]. He is in no distress. Extensive fluid overload. (Helen Gaspar) Review of Systems General Constitutional: Fatigue (Helen Gaspar) Cardiovascular Cardiac: Edema (Helen Gaspar) Objective Data Data 12/27/16 12/28/16 19:00 07:00 Intake Total 720 ml 1100 ml Output Total 600 ml 300 ml Balance 120 ml 800 ml Intake Oral 720 ml 1100 ml Output Urine Total 600 ml 300 ml # Voids 3 Vital Signs Date Time Temp Pulse Resp B/P Pulse Ox O2 Delivery O2 Flow Rate FiO2 12/28/16 10:00 101 12/28/16 08:00 98.1 101 19 135/78 97 12/28/16 07:30 97.9 98 20 129/73 96 12/28/16 03:47 14 12/28/16 03:41 101 18 110/83 97 12/27/16 20:00 92 12/27/16 19:33 97 18 138/82 99 12/27/16 16:27 97 20 123/73 100 12/27/16 12:55 98.6 92 20 136/84 94 (Helen Gaspar) -: 12/28/16 0632 12/28/16 0632 Microbiology 12/28/16 Aerobic Blood Culture, Received Pending 12/28/16 Anaerobic Blood Culture, Received Pending 12/28/16 Aerobic Blood Culture, Received Pending 12/28/16 Anaerobic Blood Culture, Received Pending Imaging Last 72 hours Impressions Abdomen/Pelvis CT 12/28/16 0000 Signed Impressions: Service Date/Time: Wednesday, December 28, 2016 03:28 - CONCLUSION: Liver cirrhosis and stigmata of portal hypertension. Abundant ascites. Small bilateral pleural effusions and left base pneumonia. Derek Krause MD Abdomen Ultrasound 12/28/16 0000 Signed Impressions: Service Date/Time: Wednesday, December 28, 2016 06:43 - CONCLUSION: 1. Flow within the main portal vein is not confirmed with certainty which raises the possibility of portal vein thrombus. CT or MRI of the abdomen with contrast may be helpful for father evaluation of this finding. 2. Small heterogeneous nodular liver consistent with cirrhosis. 3. Ascites. 4. Splenomegaly. 5. Distended thick walled gallbladder with pericholecystic fluid and possible stone or polyp in the neck. Clinical correlation is recommended to rule out acute cholecystitis. 6. Poor visualization of the pancreas and right kidney due to shadowing bowel gas. Veto Cortez MD Chest X-Ray 12/25/162123 Signed Impressions: Service Date/Time: Sunday, December 25, 2016 21:45 - CONCLUSION: Cardiomegaly without evidence of acute cardiopulmonary process. Bakari Amado MD (ChasityHelen B. IMMUNOLOGY TEACHER) Physical Exam General Appearance: Well Developed, Well Nourished, Comfortable, Obese (Chasity, Helen B. IMMUNOLOGY TEACHER) Throat Throat Exam: Oral Mucosa [place] & Moist (Chasity,Helen B. IMMUNOLOGY TEACHER) Pulmonary Resp Exam: Breath Sounds Equal, No Distress, Decreased Bases (Chasity,Helen B. IMMUNOLOGY TEACHER) Cardiology CV Exam: Regular, Normal Sinus Rhythm (Chasity,Helen B. IMMUNOLOGY TEACHER) Gastrointestinal/Abdomen GI Exam: Soft, Non-Tender (Chasity,Helen B. IMMUNOLOGY TEACHER) Musculoskeletal MS Exam: Joints Intact, Normal Tone (Chasity,Helen B. IMMUNOLOGY TEACHER) Integumentary Skin Exam: Clear, Warm, Dry, Intact (Chasity,Helen B. IMMUNOLOGY TEACHER) Extremeties Extremities Exam: Pedal Pulses Palpable, Moderate Edema, Pitting Edema, Dependent Edema (Chasity,Helen B. IMMUNOLOGY TEACHER) Neurologic Neuro Exam: Alert, Awake, Oriented, Speech Clear, Moving All Extremities ( Chasity,Helen B. IMMUNOLOGY TEACHER) Psychiatric Psych Exam: Appropriate Responses (ChasityHelen B. IMMUNOLOGY TEACHER) Assessment/Plan Discussed Condition With: Patient Assessment Summary: SAL/Acute Renal Failure, Fluid/Volume Overload, Hypertension Problem List: (1) Acute renal failure Plan: in a pt with resolving renal failure who was dialysis dependent until due to Iga nephropathy with RPGN exacerbation may be due to too rapidly reducing the rejection regimen (he did not fill the cellcept) medications were restarted, CellCept dose increased, also on prednisone 60 mg daily) start Bumex gtt at 2 mg/hr, monitor response. He is making urine monitor renal function, urine output no electrolyte concerns he may need dialysis depending on response to diuretics renal panel in am (2) RPGN (rapidly progressive glomerulonephritis) Plan: see above (3) IgA nephropathy determined by renal biopsy Plan: continue immunosuppressive medications as above monitor renal function management as above (4) Thrombocytopenia Plan: it was thought cirrhosis may have been the etiology monitor, improved compared to previous admission no active bleeding (5) Leukocytosis Plan: with abdominal pain, has PNA, possible cholelithiasis surgery consulted may require paracentesis on vancomycin , Flagyl, cefepime monitor clinically , carefully monitor drug levels (Helen Gaspar) Plan patient was seen and examined. Discussed with Dr. Prince. s/p paracentesis. I will stop Bumex drip for the time being, start on Bumex 2 mg PO BID. Reduce CellCept to 500 mg PO BID. Start tapering prednisone. Monitor urine output and renal function, may need to restart dialysis. (Fredo Mayer MD) Problem Qualifiers (1) Acute renal failure: Qualified Code: N17.9 - Acute renal failure, unspecified acute renal failure type Helen Gaspar Dec 28, 2016 11:19 Fredo Mayer MD Dec 28, 2016 20:05
[2016-12-28] MEDS: SEVELAMER CARBONATE 800 MG TAB PO SCH ×2 (11:40→15:13)
[2016-12-28 12:41] LABS: AMYLASE 85 U/L (25-115)
[2016-12-28] MEDS ORDERED: BUMETANIDE INJ 100 ML IV SCH (13:30)
--- NOTE | 2016-12-28 13:33 | PD.CONS ---
cc: Jc Araujo MD [facility] Service General Surgery Consult Requested By Dr. Wall Reason for Consult Evaluation of severe abdominal pain Primary Care Physician No Primary Care Physician History of Present Illness This is a 46 year old male who was hospitalized from Nov 18 to Dec 23 of this year for glomerulonephritis. He was started on hemodialysis. He had improvement in his renal function and was started on Prednisone and Cellcept. He was discharged Saturday evening with instructions to continue the Prednisone and Cellcept. He left the hospital without the prescriptions. After he got home he realized he did not have the prescriptions and called the hospital. The prescriptions could not be found. Saturday evening he noticed severe swelling in his legs and came to the ED. He was admitted to the floor. This morning the patient's abdominal pain became severe, 10/10, diffuse, some relief with medication, constant, no relation to food, no exacerbating factors. also with a fever and tachycardia and he was transferred to the [facility]. A general surgery consultation was requested for evaluation of the gallbladder. Review of Systems Constitutional: DENIES: Fatigue, Fever Endocrine: DENIES: Polydipsia, Polyuria, Polyphagia Eyes: DENIES: Blurred vision, Diplopia, Eye pain Ears, nose, mouth, throat: DENIES: Hearing loss, Vertigo, Nasal discharge Respiratory: DENIES: Apneas, Cough, Snoring Cardiovascular: DENIES: Chest pain, Palpitations, Syncope Gastrointestinal: COMPLAINS OF: Abdominal pain, DENIES: Nausea, Vomiting Genitourinary: DENIES: Urinary incontinence, Urgency, Hematuria Musculoskeletal: DENIES: Muscle aches, Stiffness Integumentary: DENIES: Abnormal pigmentation Hematologic/lymphatic: DENIES: Bruising Immunologic/allergic: DENIES: Eczema Neurologic: DENIES: Abnormal gait Psychiatric: DENIES: Confusion, Mood changes Past Family Social History Past Medical History Glomerulonephritis requiring hemodialysis Past Surgical History Orthopedic procedures Reported Medications See chart Allergies: Coded Allergies: Bactrim (Verified Allergy, Severe, 12/25/16) Active Ordered Medications Current Medications Medications (Trade) Dose Ordered Sig/Noni Route Start Time Stop Time Status Last Admin (NS Flush) 2 ml UNSCH PRN FLUSH 12/25/16 23:15 (NS Flush) 2 ml BID FLUSH 12/26/16 09:00 12/28/16 09:00 (Heparin Inj) 5,000 units Q8H SQ 12/26/16 00:00 12/28/16 09:23 (Narcan Inj) 0.4 mg UNSCH PRN IV 12/25/16 23:15 (Tylenol) 650 mg Q4H PRN PO 12/26/16 05:15 12/28/16 05:54 (Procardia Xl) 60 mg DAILY PO 12/26/16 09:00 12/28/16 10:55 (Xanax) 0.125 mg Q6H PRN PO 12/26/16 07:45 12/27/16 16:34 (Pill Splitter) 1 ea UNSCH PRN OTHER 12/26/16 08:00 (Deltasone) 60 mg DAILY PO 12/27/16 09:00 12/28/16 09:23 (Benadryl) 25 mg HS PRN PO 12/27/16 01:45 12/27/16 23:41 (Cellcept) 1,000 mg BID@06,18 PO 12/27/16 18:00 12/28/16 04:30 Acetaminophen/ Hydrocodone Bitart 1 tab 1 tab Q6H PRN PO 12/27/16 16:00 12/28/16 11:37 (Maxipime Inj/NS Inj) 100 ml @ 200 mls/hr Q24H IV 12/28/16 05:00 12/28/16 04:28 Morphine Sulfate 2 mg 2 mg Q3H PRN IV PUSH 12/28/16 05:30 12/28/16 09:23 (Flagyl 500 Mg Inj) 100 ml @ 100 mls/hr Q6H IV 12/28/16 06:00 12/28/16 11:37 Sevelamer Carbonate 800 mg 800 mg TIDAC PO 12/28/16 12:00 12/28/16 11:40 (Bumex Inj) 100 ml @ 8 mls/hr CONTINUOUS IV 12/28/16 13:30 Family History Non contributory Social History Recovering alcoholic---abstinence from ETOH for 16 months with a small relapse in Sep 2016 Non smoker Denies illicit drug use Physical Exam Vital Signs Vital Signs Date Time Temp Pulse Resp B/P Pulse Ox O2 Delivery O2 Flow Rate FiO2 12/28/16 12:00 98.3 94 18 148/75 94 12/28/16 12:00 91 12/28/16 10:00 101 12/28/16 08:00 98.1 101 19 135/78 97 12/28/16 07:30 97.9 98 20 129/73 96 12/28/16 03:47 14 12/28/16 03:41 101 18 110/83 97 12/27/16 20:00 92 12/27/16 19:33 97 18 138/82 99 12/27/16 16:27 97 20 123/73 100 Physical Exam GENERAL: Obese male resting in bed in no acute distress SKIN: Warm and dry. Pitting edema in BLE. HEAD: Atraumatic. Normocephalic. EYES: Pupils equal and round. No scleral icterus. No injection or drainage. ENT: No nasal bleeding or discharge. Mucous membranes pink and moist. NECK: Trachea midline. CARDIOVASCULAR: Regular rate and rhythm. RESPIRATORY: No accessory muscle use. Clear to auscultation. Breath sounds equal bilaterally. GASTROINTESTINAL: Abdomen soft, obese. Tender in RLQ that radiates up to RIGHT shoulder. MUSCULOSKELETAL: Extremities without clubbing, cyanosis. Pitting edema in BLE. NEUROLOGICAL: Awake and alert. No obvious cranial nerve deficits. Motor grossly within normal limits. Five out of 5 muscle strength in the arms and legs. Normal speech. PSYCHIATRIC: Appropriate mood and affect; insight and judgment normal. Laboratory Laboratory Tests Test 12/28/16 06:32 White Blood Count 22.1 Red Blood Count 3.20 Hemoglobin 10.2 Hematocrit 29.6 Mean Corpuscular Volume 92.5 Mean Corpuscular Hemoglobin 31.8 Mean Corpuscular Hemoglobin 34.4 Concent Red Cell Distribution Width 13.8 Platelet Count 124 Mean Platelet Volume 7.0 Neutrophils (%) (Auto) 80.9 Lymphocytes (%) (Auto) 8.7 Monocytes (%) (Auto) 9.7 Eosinophils (%) (Auto) 0.4 Basophils (%) (Auto) 0.3 Neutrophils # (Auto) 17.9 Lymphocytes # (Auto) 1.9 Monocytes # (Auto) 2.1 Eosinophils # (Auto) 0.1 Basophils # (Auto) 0.1 CBC Comment DIFF FINAL Differential Comment Sodium Level 135 Potassium Level 3.7 Chloride Level 97 Carbon Dioxide Level 22.0 Anion Gap 16 Blood Urea Nitrogen 135 Creatinine 3.99 Estimat Glomerular Filtration 16 Rate Random Glucose 125 Lactic Acid Level 1.5 Calcium Level 8.0 Phosphorus Level 7.2 Total Bilirubin 1.2 Aspartate Amino Transf 23 (AST/SGOT) Alanine Aminotransferase 34 (ALT/SGPT) Alkaline Phosphatase 94 Total Protein 4.7 Albumin 2.3 Amylase Level 85 Lipase 363 Date/Time Procedure Status Source Growth 12/28/16 06:35 Aerobic Blood Culture Received Blood Peripheral Pending 12/28/16 06:35 Anaerobic Blood Culture Received Blood Peripheral Pending Result Diagram: 01/07/17 0600 01/07/17 0600 Imaging Last 48 hours Impressions Abdomen/Pelvis CT 12/28/16 0000 Signed Impressions: Service Date/Time: Wednesday, December 28, 2016 03:28 - CONCLUSION: Liver cirrhosis and stigmata of portal hypertension. Abundant ascites. Small bilateral pleural effusions and left base pneumonia. Derek Krause MD Abdomen Ultrasound 12/28/16 0000 Signed Impressions: Service Date/Time: Wednesday, December 28, 2016 06:43 - CONCLUSION: 1. Flow within the main portal vein is not confirmed with certainty which raises the possibility of portal vein thrombus. CT or MRI of the abdomen with contrast may be helpful for father evaluation of this finding. 2. Small heterogeneous nodular liver consistent with cirrhosis. 3. Ascites. 4. Splenomegaly. 5. Distended thick walled gallbladder with pericholecystic fluid and possible stone or polyp in the neck. Clinical correlation is recommended to rule out acute cholecystitis. 6. Poor visualization of the pancreas and right kidney due to shadowing bowel gas. Veto Cortez MD Assessment and Plan Assessment and Plan 46 year old male with abdominal pain; Questionable source of pain from gallbladder -CCM following---planning to do paracentesis today -Diet as tolerated -Pain control -Nephrology following---back on Prednisone and Cellcept -Continue to follow abdominal exam -Recheck labs in AM -Thank you for allowing us to participate in the Mr. Soriano's care -General Surgery will follow along Discussed Condition With Dr. Pardeep Araujo Attending Statement pt seen at bedside appears more stable concern for ascites plan for pericentisis concern for sepsis currently on abx I discussed with dr soriano we will follow pt closely plan for operative intervention recommend medical management at this time Attestation The exam, history, and the medical decision-making described in the above note were completed with the assistance of the mid-level provider. I reviewed and agree with the findings presented. I attest that I had a [id number] encounter with the patient on the same day, and personally performed and documented my assessment and findings in the medical record. Marlee Lane Dec 28, 2016 13:32 Jc Araujo MD Jan 08, 2017 05:34
--- NOTE | 2016-12-28 14:42 | PD.CONS ---
[facility] Service Critical Care Medicine Consult Requested By Dr. 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 He was admitted for further evaluation. I evaluated the patient around 06:15am this morning after a rapid response was called for distress. Patient was significantly tachycardic and tachypneic. febrile. patient complains of worsening abdominal pain radiating around to his right flank. denies nausea,vomiting, diarrhea. denies SOB, chest pain. states it has been getting gradually worse over the last few days. I discussed the case with Dr. Wall his covering hospitalist. rising leukocytosis. concern for worsening sepsis. I agree with her assessment. initial plan for empiric vancomycin, cefepime, flagyl and transfer to ICU level care with CCM team following. Past Family Social History Allergies: Coded Allergies: Bactrim (Verified Allergy, Severe, 12/25/16) Past Medical History glomerulonephritis, IgA hypertension anemia etoh cirrhosis Past Surgical History ortho surgeries on hands and feet. Reported Medications Pantoprazole (Pantoprazole Sodium) 40 Mg Tab 40 Mg PO DAILY Lasix (Furosemide) 40 Mg Tab 40 Mg PO DAILY Cellcept (Mycophenolate Mofetil) 500 Mg Tab 500 Mg PO BID@,18 Prednisone 20 Mg Tab 20 Mg PO DAILY Nifedipine ER 24 HR (Nifedipine) 60 Mg Tab 60 Mg PO DAILY Active Ordered Medications See MAR Family History reviewed and found to be noncontributory to his acute illness. Social History denies tob. strong etoh history but quit 18 months ago. Physical Exam Vital Signs Vital Signs Date Time Temp Pulse Resp B/P Pulse Ox O2 Delivery O2 Flow Rate FiO2 12/28/16 14:00 92 12/28/16 12:00 98.3 94 18 148/75 94 12/28/16 12:00 91 12/28/16 10:00 101 12/28/16 08:00 98.1 101 19 135/78 97 12/28/16 07:30 97.9 98 20 129/73 96 12/28/16 03:47 14 12/28/16 03:41 101 18 110/83 97 12/27/16 20:00 92 12/27/16 19:33 97 18 138/82 99 12/27/16 16:27 97 20 123/73 100 Physical Exam gen: middle-aged male, lying in bed, tachypneic, in moderate distress heent: NC.AT. PERRL. mucous membranes moist neck: obese, difficult to assess JVD. trachea is midline. chest: mildly tachypneic. clear to auscultation cv: tachycardic rate, regular rhythm. no appreciable murmurs abd: diffusely tender, greater over right flank, no guarding or rebound. +fluid wave. obese. extr: 3+ pitting edema. distal pulses 2+ neuro: RASS 0. alert and oriented x 3. no gross focal motor/sensory deficits. Laboratory Laboratory Tests Test 12/28/16 06:32 White Blood Count 22.1 Red Blood Count 3.20 Hemoglobin 10.2 Hematocrit 29.6 Mean Corpuscular Volume 92.5 Mean Corpuscular Hemoglobin 31.8 Mean Corpuscular Hemoglobin 34.4 Concent Red Cell Distribution Width 13.8 Platelet Count 124 Mean Platelet Volume 7.0 Neutrophils (%) (Auto) 80.9 Lymphocytes (%) (Auto) 8.7 Monocytes (%) (Auto) 9.7 Eosinophils (%) (Auto) 0.4 Basophils (%) (Auto) 0.3 Neutrophils # (Auto) 17.9 Lymphocytes # (Auto) 1.9 Monocytes # (Auto) 2.1 Eosinophils # (Auto) 0.1 Basophils # (Auto) 0.1 CBC Comment DIFF FINAL Differential Comment Sodium Level 135 Potassium Level 3.7 Chloride Level 97 Carbon Dioxide Level 22.0 Anion Gap 16 Blood Urea Nitrogen 135 Creatinine 3.99 Estimat Glomerular Filtration 16 Rate Random Glucose 125 Lactic Acid Level 1.5 Calcium Level 8.0 Phosphorus Level 7.2 Total Bilirubin 1.2 Aspartate Amino Transf 23 (AST/SGOT) Alanine Aminotransferase 34 (ALT/SGPT) Alkaline Phosphatase 94 Total Protein 4.7 Albumin 2.3 Amylase Level 85 Lipase 363 Date/Time Procedure Status Source Growth 12/28/16 06:35 Aerobic Blood Culture Received Blood Peripheral Pending 12/28/16 06:35 Anaerobic Blood Culture Received Blood Peripheral Pending Result Diagram: 12/28/16 0632 12/28/16 0632 Assessment and Plan Assessment and Plan Assessment: 46yM with history of etoh cirrhosis and recent diagnosis of IgA nephropathy, was on renal replacement therapy and represents with fever, chills , leukocytosis and abdominal pain. We ordered an abdominal ultrasound which could not rule out portal vein thrombosis, but did demonstrate possible stone in the neck of the gallbladder. I have discussed his case with the radiologist attending, and Dr. Araujo of general surgery. Differential diagnosis includes spontaneous bacterial peritonitis, cholecystitis, pancreatitis, portal vein thrombosis, acute pyelonephritis. Certainly iv contrast given his severe CKD may increase his risk of permanent renal replacement therapy. We will plan to watch him conservatively. we will pursue diagnostic paracentesis for gram stain and culture. trend LFTs and coags. empirically start heparin drip, though portal vein thrombus may be lower on the differential. cover empirically with vancomycin, cefepime, flagyl and f/u urine, sputum, blood cultures and peritoneal fluid cultures. Certainly his worsening renal and liver function along with his severe sepsis are all life-threatening at this point, and he is critically ill. we will admit him to the ICU; he is at high risk for decompensation. Plan by systems: Neurologic: Acute abdominal pain Fever Dilaudid as needed for pain --tylenol as needed for fever Respiratory: Atelectasis Incentive spirometer to bedside Head of bed at 30 out of bed with assistance Cardiovascular: Tachycardia Sepsis I will not IV fluid resuscitate the patient given his poor renal function. We' ll defer to nephrology for intravascular and total body volume status Renal: IgA nephropathy Acute on chronic renal failure Nephrology following: [place] -- Strict I/Os FEN/GI: Alcoholic cirrhosis Acute abdominal pain Possible acute cholecystitis Trend LFTs ICU electrolyte protocol Fluids per nephrology Diagnostic paracentesis today with culture Clear liquid diet Heme/ID: Thrombocytopeniasecondary to cirrhosis Possible portal vein thrombosis Leukocytosis Sepsis Possible acute cholecystitis Possible spontaneous bacterial peritonitis Daily CBC Daily coags Heparin drip, no bolus Vancomycin with pharmacy dosing Cefepime Flagyl Follow-up cultures, urine culture, sputum culture, peritoneal fluid culture Endocrine: Hyperglycemia of critical illness -- SSI, every 6 hours, medium scale Prophylaxis: GI Prophylaxis Protonix 40 mg IV every 12 hours DVT Prophylaxis -- SCDs Heparin infusion Lines: Peripheral IVs Dispo: To admit to the ICU. He remains critically ill. This patient remains critically ill with one or more organ systems which are or may become a threat to life. I have spent in excess of 55 minutes discontinuously in the care and management of this patient. This time is exclusive of procedures, and includes, but is not limited to, evaluation of the patient, review of the medical record, discussions with family, consultants, nursing staff, or respiratory therapy, and documentation in the medical record. Code Status Full Code Sam Roberto MD Dec 28, 2016 14:42
[2016-12-28] MEDS ORDERED: HEPARIN-D5W INJ 250 ML IV SCH (14:45)
[2016-12-28] MEDS: PANTOPRAZOLE SODIUM 40 MG VIAL IV PUSH SCH (15:12)
[2016-12-28 15:47] LABS: HEMATOCRIT 30.6 % (39.0-51.0); MEAN CELL VOLUME 95.3 FL (80.0-100.0); MEAN CORPUSCULAR HEMOGLOBIN 32.3 PG (27.0-34.0); MEAN CORPUSCULAR HGB CONC 33.9 % (32.0-36.0); PLATELET COUNT 103 TH/MM3 (150-450); RED BLOOD COUNT 3.21 MIL/MM3 (4.50-5.90); RED CELL DISTRIBUTION WIDTH 14.3 % (11.6-17.2); REVIEW FLAG FINAL; WHITE BLOOD COUNT 26.2 TH/MM3 (4.0-11.0)
[2016-12-28 15:57] LABS: APTT (PATIENT) 25.4 SEC (24.3-30.1); PROTHROMBIN TIME - PATIENT 10.7 SEC (9.8-11.6)
--- NOTE | 2016-12-28 16:01 | PD.CONS ---
HPI History of Present Illness This is a 46 year old male, who was diagnosed with glomerulonephritis and alcoholic cirrhosis on last admission, presented back to ER with generalized weakness and worsening swelling of the legs and inability to void. He had dialysis for 3 weeks and that has been discontinued and currently on Prednisone and Celcept. GI have been consulted for ascites. Patient hasn't been drinking alcohol. Non contrasted CT showed Liver cirrhosis and stigmata of portal hypertension. Abundant ascites. Small bilateral pleural effusions and left base pneumonia. US 1. Flow within the main portal vein is not confirmed with certainty which raises the possibility of portal vein thrombus. CT or MRI of the abdomen with contrast may be helpful for father evaluation of this finding. 2. Small heterogeneous nodular liver consistent with cirrhosis. 3. Ascites. 4. Splenomegaly. 5. Distended thick walled gallbladder with pericholecystic fluid and possible stone or polyp in the neck. Clinical correlation is recommended to rule out acute cholecystitis. 6. Poor visualization of the pancreas and right kidney due to shadowing bowel gas. LFTs normal, he has leucocytosis. He denies nausea , vomiting, melena or hematochezia. He reports diffused abdomen pain and swelling. He was evaluated by our GI services earlier this month, he had EGD/ colonoscopy on (12/03/16) ----> moderate diverticulosis small internal hemorrhoid , external hemorrhoids, poor prep, erythema gastritis, bx benign. Nephrology consulted, GS consulted for possible cholecystitis but no surgical intervention at this time. (Theresa Franks) PFSH Past Medical History glomerulonephritis hypertension anemia Cirrhosis Past Surgical History ortho surgeries on hands and feet. (Theresa Franks) Coded Allergies: Bactrim (Verified Allergy, Severe, 12/25/16) Medications Current Medications Medications (Trade) Dose Ordered Sig/Noni Route Start Time Stop Time Status Last Admin (NS Flush) 2 ml UNSCH PRN FLUSH 12/25/16 23:15 (NS Flush) 2 ml BID FLUSH 12/26/16 09:00 12/28/16 09:00 (Narcan Inj) 0.4 mg UNSCH PRN IV 12/25/16 23:15 (Tylenol) 650 mg Q4H PRN PO 12/26/16 05:15 12/28/16 05:54 (Procardia Xl) 60 mg DAILY PO 12/26/16 09:00 12/28/16 10:55 (Pill Splitter) 1 ea UNSCH PRN OTHER 12/26/16 08:00 (Deltasone) 60 mg DAILY PO 12/27/16 09:00 12/28/16 09:23 Mycophenolate Mofetil 1000 mg 1,000 mg BID@06,18 PO 12/27/16 18:00 12/28/16 04:30 Cefepime HCl 1000 mg/Sodium Chloride 100 ml @ 200 mls/hr Q24H IV 12/28/16 05:00 12/28/16 04:28 (Flagyl 500 Mg Inj) 100 ml @ 100 mls/hr Q6H IV 12/28/16 06:00 12/28/16 11:37 Sevelamer Carbonate 800 mg 800 mg TIDAC PO 12/28/16 12:00 12/28/16 15:13 Bumetanide 100 ml @ 8 mls/hr CONTINUOUS IV 12/28/16 13:30 12/28/16 15:11 (Heparin-D5W Inj) 250 ml @ 0 mls/hr TITRATE IV 12/28/16 14:45 12/28/16 15:12 (Dilaudid Pf Inj) 0.5 mg Q4H PRN IV PUSH 12/28/16 14:45 (Roxicodone) 5 mg Q4H PRN PO 12/28/16 14:45 (Protonix Inj) 40 mg Q24H IV PUSH 12/28/16 15:00 12/28/16 15:12 Family History Non contributory Social History doesn't smoke. quit drinking. (Theresa Franks) Review of Systems Constitutional: COMPLAINS OF: Fatigue Eyes: DENIES: Double Vision Ears, nose, mouth, throat: DENIES: Hoarseness Respiratory: DENIES: Shortness of breath Cardiovascular: COMPLAINS OF: Lower Extremity Edema Gastrointestinal: COMPLAINS OF: Abdominal pain, Swelling of Abdomen, DENIES: Black stools, Bloody stools, Constipation, Diarrhea, Nausea, Vomiting, Difficulty Swallowing, Anorexia, Odynophagia, Heartburn, Hematemesis Genitourinary: DENIES: Hematuria Musculoskeletal: DENIES: Neck pain Integumentary: DENIES: Jaundice Hematologic/lymphatic: DENIES: Bruising Immunologic/allergic: DENIES: Eczema Neurologic: DENIES: Abnormal gait Psychiatric: DENIES: Anxiety (Theresa Franks) GI Exam Vitals I&O Vital Signs Date Time Temp Pulse Resp B/P Pulse Ox O2 Delivery O2 Flow Rate FiO2 12/28/16 14:00 92 12/28/16 12:00 98.3 94 18 148/75 94 12/28/16 12:00 91 12/28/16 10:00 101 12/28/16 08:00 98.1 101 19 135/78 97 12/28/16 07:30 97.9 98 20 129/73 96 12/28/16 03:47 14 12/28/16 03:41 101 18 110/83 97 12/27/16 20:00 92 12/27/16 19:33 97 18 138/82 99 12/27/16 16:27 97 20 123/73 100 I/O 12/27/16 12/27/16 12/27/16 12/28/16 12/28/16 12/28/16 07:00 15:00 23:00 07:00 15:00 23:00 Intake Total 720 ml 1100 ml 1361 ml Output Total 600 ml 300 ml 900 ml Balance 120 ml 800 ml 461 ml Intake Oral 720 ml 1100 ml 450 ml IV Total 911 ml Output Urine Total 600 ml 300 ml 900 ml # Voids 3 Imaging Last Impressions Abdomen/Pelvis CT 12/28/16 0000 Signed Impressions: Service Date/Time: Wednesday, December 28, 2016 03:28 - CONCLUSION: Liver cirrhosis and stigmata of portal hypertension. Abundant ascites. Small bilateral pleural effusions and left base pneumonia. Derek Krause MD Abdomen Ultrasound 12/28/16 0000 Signed Impressions: Service Date/Time: Wednesday, December 28, 2016 06:43 - CONCLUSION: 1. Flow within the main portal vein is not confirmed with certainty which raises the possibility of portal vein thrombus. CT or MRI of the abdomen with contrast may be helpful for father evaluation of this finding. 2. Small heterogeneous nodular liver consistent with cirrhosis. 3. Ascites. 4. Splenomegaly. 5. Distended thick walled gallbladder with pericholecystic fluid and possible stone or polyp in the neck. Clinical correlation is recommended to rule out acute cholecystitis. 6. Poor visualization of the pancreas and right kidney due to shadowing bowel gas. Veto Cortez MD Chest X-Ray 12/25/162123 Signed Impressions: Service Date/Time: Sunday, December 25, 2016 21:45 - CONCLUSION: Cardiomegaly without evidence of acute cardiopulmonary process. Bakari Amado MD Laboratory Test 12/28/16 06:32 White Blood Count 22.1 TH/MM3 Red Blood Count 3.20 MIL/MM3 Hemoglobin 10.2 GM/DL Hematocrit 29.6 % Mean Corpuscular Volume 92.5 FL Mean Corpuscular Hemoglobin 31.8 PG Mean Corpuscular Hemoglobin 34.4 % Concent Red Cell Distribution Width 13.8 % Platelet Count 124 TH/MM3 Mean Platelet Volume 7.0 FL Neutrophils (%) (Auto) 80.9 % Lymphocytes (%) (Auto) 8.7 % Monocytes (%) (Auto) 9.7 % Eosinophils (%) (Auto) 0.4 % Basophils (%) (Auto) 0.3 % Neutrophils # (Auto) 17.9 TH/MM3 Lymphocytes # (Auto) 1.9 TH/MM3 Monocytes # (Auto) 2.1 TH/MM3 Eosinophils # (Auto) 0.1 TH/MM3 Basophils # (Auto) 0.1 TH/MM3 CBC Comment DIFF FINAL Differential Comment Sodium Level 135 MEQ/L Potassium Level 3.7 MEQ/L Chloride Level 97 MEQ/L Carbon Dioxide Level 22.0 MEQ/L Anion Gap 16 MEQ/L Blood Urea Nitrogen 135 MG/DL Creatinine 3.99 MG/DL Estimat Glomerular Filtration 16 ML/MIN Rate Random Glucose 125 MG/DL Lactic Acid Level 1.5 mmol/L Calcium Level 8.0 MG/DL Phosphorus Level 7.2 MG/DL Total Bilirubin 1.2 MG/DL Aspartate Amino Transf 23 U/L (AST/SGOT) Alanine Aminotransferase 34 U/L (ALT/SGPT) Alkaline Phosphatase 94 U/L Total Protein 4.7 GM/DL Albumin 2.3 GM/DL Amylase Level 85 U/L Lipase 363 U/L Date/Time Procedure Status Source Growth 12/28/16 06:35 Aerobic Blood Culture Received Blood Peripheral Pending 12/28/16 06:35 Anaerobic Blood Culture Received Blood Peripheral Pending Physical Examination HEENT: normocephalic; atraumatic; no jaundice. Throat is clear. NECK: Neck is supple, no JVD, no lymphadenopathy. CHEST: Chest is clear to auscultation and percussion. CARDIAC: Regular rate and rhythm with no murmur gallop or rubs. ABDOMEN: firm, distended, tender; bowel sounds are present in all four quadrants. Ascites EXTREMITIES: No clubbing, cyanosis, 3+edema. WAX BLEACHER: No focal deficits; alert and oriented times three. (Theresa Franks REINFORCER) Assessment and Plan Plan ASSESSMENT: - Alcoholic Cirrhosis/ascites- will order diagnostic paracentesis, paste maker doesn't wish to order therapeutic due to kidney function Non contrasted CT showed Liver cirrhosis and stigmata of portal hypertension. Abundant ascites. Small bilateral pleural effusions and left base pneumonia. US 1. Flow within the main portal vein is not confirmed with certainty which raises the possibility of portal vein thrombus. CT or MRI of the abdomen with contrast may be helpful for father evaluation of this finding. 2. Small heterogeneous nodular liver consistent with cirrhosis. 3. Ascites. 4. Splenomegaly. 5. Distended thick walled gallbladder with pericholecystic fluid and possible stone or polyp in the neck. Clinical correlation is recommended to rule out acute cholecystitis. 6. Poor visualization of the pancreas and right kidney due to shadowing bowel gas. LFTs normal, he has leucocytosis. He denies nausea, vomiting, melena or hematochezia. He reports diffused abdomen pain and swelling. He was evaluated by our GI services earlier this month, he had EGD/colonoscopy on (12/03/16) ----> moderate diverticulosis small internal hemorrhoid, external hemorrhoids, poor prep, erythema gastritis, bx benign. Nephrology consulted, GS consulted for possible cholecystitis but no surgical intervention at this time. - ?Portal vein thrombosis- will benefit from contrasted CT once kidney function allows. - Anemia, no bleeding, EGD/colonoscopy on (12/03/16) ----> moderate diverticulosis small internal hemorrhoid, external hemorrhoids, poor prep, erythema gastritis, bx benign - glomerulonephritis - He had dialysis for 3 weeks and that has been discontinued and currently on Prednisone and Celcept. - leukocytosis- multi factorial ? SBP, ? pneumonia, ? acute cholecystitis, side effects of steroids, abx - Thrombocytopenia. 124 - Abdomen pain- GS consulted, no surgical intervention Plan: - Renal diet - Diagnostic paracentesis - Doppler US - Will defer diuretics to nephrology - PPI - Supportive care - Patient seen and examined by dr. Cristina and myself and this note is written on his behalf. (Theresa Franks) Physician Comments Patient seen and examined Agree with above Continue with current supportive care Monitor labs Most likely cause of leukocytosis is multifactorial but that includes steroid use and we do need to rule out underlying infection such as SBP Patient continues to drink alcohol and as such it was emphasized that he needs to stop drinking alcohol at this point Patient probably has portal vein thrombosis not much to be done at this point but we will need to obtain contrasted imaging when stable or if cleared by nephrology (Reji Cristina MD) Theresa Franks Dec 28, 2016 16:01 Reji Cristina MD Dec 28, 2016 19:00
--- NOTE | 2016-12-28 16:57 | PD.PROCEDR ---
Procedure Note Procedure Diagnostic Paracentesis Procedure Note Diagnosis: Sepsis Indications: Sepsis with cirrhosis, ascites, concern for spontaneous bacterial peritonitis Consent: Written consent was obtained Anesthesia: 1% lidocaine locally Description of the Procedure: The patient was placed in the supine position. The area of largest fluid collection was marked pre-procedure using ultrasound guidance. The area was prepped and draped sterilely. 1% Lidcaine was infiltrated subcutaneously. A small incision was made using a #11 blade. A 12g needle and angiocath were advanced under negative pressure aspiration until fluid was obtained. The catheter was advanced over the needle easily and without resistance. At the conclusion of the procedure, the catheter was removed and a dressing was applied. There were no immediate complications noted. There was minimal EBL. The patient tolerated the procedure well. Findings: 60 mL's of serous fluid was removed. I personally performed the procedure. Sam Roberto MD Dec 28, 2016 16:56
[2016-12-28] MEDS: BUMETANIDE 1 MG TAB PO SCH (18:21)
[2016-12-28] MEDS: HYDROmorphone HCL PF 1 MG/ML VIAL IV PUSH PRN ×2 (18:21→22:46)
[2016-12-28 18:29] LABS: PERITONEAL HISTIOCYTES 1 %; PERITONEAL LYMPHS 13 %; PERITONEAL MONOS 25 %; PERITONEAL POLYS(SEGS) 60 %; PERITONEAL WBC 93 /MM3 (0-10)
[2016-12-28 18:30] LABS: PERITONEAL MESOTHELIAL 1 %
[2016-12-28] MEDS ORDERED: ALPRAZolam 0.5 MG TAB PO SCH (23:15)
[2016-12-29] VITALS (13 sets, daily range): BP systolic 127–153; BP diastolic 62–83; PULSE 88–106; RESP 19–23; TEMP 96.3–98.1; O2SAT 94–100
[2016-12-29] MEDS: HYDROmorphone HCL PF 1 MG/ML VIAL IV PUSH PRN ×3 (03:12→23:19)
[2016-12-29 03:34] LABS: HEMATOCRIT 27.5 % (39.0-51.0); MEAN CELL VOLUME 91.9 FL (80.0-100.0); MEAN CORPUSCULAR HEMOGLOBIN 32.8 PG (27.0-34.0); MEAN CORPUSCULAR HGB CONC 35.8 % (32.0-36.0); PLATELET COUNT 105 TH/MM3 (150-450); RED BLOOD COUNT 2.99 MIL/MM3 (4.50-5.90); RED CELL DISTRIBUTION WIDTH 13.9 % (11.6-17.2); REVIEW FLAG FINAL
[2016-12-29 03:50] LABS: APTT (PATIENT) 75.1 SEC (24.3-30.1); PROTHROMBIN TIME - PATIENT 11.4 SEC (9.8-11.6)
[2016-12-29] MEDS: CEFEPIME INJ 1,000 MG in SODIUM CHLORIDE 0.9% INJ 100 ML IV SCH (04:03)
[2016-12-29 04:09] LABS: POTASSIUM 4.2 MEQ/L (3.5-5.1)
[2016-12-29 04:10] LABS: INDIRECT BILIRUBIN 0.6 MG/DL (0.0-0.8); TOTAL BILIRUBIN ADULT 0.9 MG/DL (0.2-1.0)
[2016-12-29] MEDS: metroNIDAZOLE 500 MG INJ 100 ML IV SCH ×3 (05:33→18:22)
[2016-12-29] MEDS: MYCOPHENOLATE MOFETIL 500 MG TAB PO SCH ×2 (05:33→19:24)
[2016-12-29] MEDS: HEPARIN-D5W INJ 250 ML IV SCH (06:52)
[2016-12-29] MEDS: SEVELAMER CARBONATE 800 MG TAB PO SCH ×3 (07:02→16:01)
[2016-12-29] MEDS: NIFEdipine 60 MG SUSTAINED RELEASE TAB PO SCH (08:42)
[2016-12-29] MEDS: BUMETANIDE 1 MG TAB PO SCH ×2 (08:42→18:19)
[2016-12-29] MEDS: predniSONE 20 MG TAB PO SCH (08:43)
[2016-12-29] MEDS: SODIUM CHLORIDE 0.9% FLUSH 5 ML FLUSH FLUSH SCH ×2 (09:00→21:00)
[2016-12-29] MEDS: ONDANSETRON HCL 4 MG/2 ML VIAL IV PUSH PRN ×2 (09:54→23:19)
--- NOTE | 2016-12-29 10:36 | HHI.PR ---
Subjective Subjective Notes "I feel better today". Still has abdominal pain, but across lower abdomen. Objective Vitals/I&O Vital Signs Date Time Temp Pulse Resp B/P Pulse Ox O2 Delivery O2 Flow Rate FiO2 12/29/16 10:00 93 12/29/16 09:26 97 21 12/29/16 08:00 97.9 20 137/72 12/29/16 07:00 Room Air Labs Laboratory Tests Test 12/28/16 12/28/16 12/29/16 15:34 16:15 03:19 White Blood Count 26.2 18.0 Red Blood Count 3.21 2.99 Hemoglobin 10.4 9.8 Hematocrit 30.6 27.5 Mean Corpuscular Volume 95.3 91.9 Mean Corpuscular Hemoglobin 32.3 32.8 Mean Corpuscular Hemoglobin 33.9 35.8 Concent Red Cell Distribution Width 14.3 13.9 Platelet Count 103 105 Mean Platelet Volume 7.5 7.3 Prothrombin Time 10.7 11.4 Prothromb Time International 1.0 1.0 Ratio Activated Partial 25.4 75.1 Thromboplast Time Peritoneal Fluid WBC 93 Peritoneal Fluid RBC 51 Peritoneal Fluid Neutrophils 60 Peritoneal Fluid Lymphocytes 13 Peritoneal Fluid Monocytes 25 Peritoneal Fluid Mesothelial 1 Cells Peritoneal Fluid Histiocytes 1 Peritoneal Fluid Total Protein 0.1 Peritoneal Fluid Albumin 0.0 Peritoneal Fluid LDH 21 Sodium Level 135 Potassium Level 4.2 Chloride Level 97 Carbon Dioxide Level 24.0 Anion Gap 14 Blood Urea Nitrogen 140 Creatinine 4.03 Estimat Glomerular Filtration 16 Rate Random Glucose 159 Calcium Level 8.2 Total Bilirubin 0.9 Direct Bilirubin 0.3 Indirect Bilirubin 0.6 Aspartate Amino Transf 19 (AST/SGOT) Alanine Aminotransferase 27 (ALT/SGPT) Alkaline Phosphatase 86 Total Protein 4.6 Albumin 2.1 Tumor Marker Alpha Fetoprotein 1.8 Date/Time Procedure Status Source Growth 12/28/16 16:15 Gram Stain - Final Resulted Fluid Peritoneal Fluid 12/28/16 16:15 Body Fluid Culture Resulted Fluid Peritoneal Fluid Pending 12/28/16 06:35 Aerobic Blood Culture Received Blood Peripheral Pending 12/28/16 06:35 Anaerobic Blood Culture Received Blood Peripheral Pending Radiology Last 48 hours Impressions Abdomen/Pelvis CT 12/28/16 0000 Signed Impressions: Service Date/Time: Wednesday, December 28, 2016 03:28 - CONCLUSION: Liver cirrhosis and stigmata of portal hypertension. Abundant ascites. Small bilateral pleural effusions and left base pneumonia. Derek Krause MD Abdomen Ultrasound 12/28/16 0000 Signed Impressions: Service Date/Time: Wednesday, December 28, 2016 06:43 - CONCLUSION: 1. Flow within the main portal vein is not confirmed with certainty which raises the possibility of portal vein thrombus. CT or MRI of the abdomen with contrast may be helpful for father evaluation of this finding. 2. Small heterogeneous nodular liver consistent with cirrhosis. 3. Ascites. 4. Splenomegaly. 5. Distended thick walled gallbladder with pericholecystic fluid and possible stone or polyp in the neck. Clinical correlation is recommended to rule out acute cholecystitis. 6. Poor visualization of the pancreas and right kidney due to shadowing bowel gas. Veto Cortez MD Abdomen: Other (mildly distended, tender to palpation LLQ, mild inRLQ. No R subcostal pain to palpation.) A/P Assessment and Plan Cirrhosis, ascites. GB wall thickening likely related to that. Portal vein thrombosis. Splenomegaly. I doubt the Gb is the etiology of his abdominal pain. Ascitic fluid with few WBC and no bacteria on gram stain. No indication for GB removal at this time. He has had multiple imaging studies in the past, none of which confirm the presence of a gallstone. Hong Carty MD Dec 29, 2016 10:35
--- NOTE | 2016-12-29 13:00 | HHI.PR ---
Subjective Remarks resting comfortably with no distress. has mild pain to the left abdomen. no fever. d/w the RN and no acute issues over night. Objective Vitals Vital Signs Date Time Temp Pulse Resp B/P Pulse Ox O2 Delivery O2 Flow Rate FiO2 12/29/16 12:00 94 12/29/16 12:00 98.1 90 23 150/83 98 12/29/16 10:00 93 12/29/16 09:26 97 21 12/29/16 08:00 98 12/29/16 08:00 97.9 98 20 137/72 98 12/29/16 07:00 98 Room Air 12/29/16 06:00 97 12/29/16 04:00 98 12/29/16 04:00 97.6 95 22 127/68 95 12/29/16 02:00 90 12/29/16 00:00 98.0 106 19 135/68 94 12/29/16 00:00 94 12/28/16 22:00 93 12/28/16 20:00 98.1 96 19 129/74 99 12/28/16 20:00 96 12/28/16 19:00 98 Room Air 12/28/16 18:00 92 12/28/16 16:00 98.1 103 20 127/72 97 12/28/16 16:00 95 12/28/16 14:00 92 I/O 12/28/16 12/28/16 12/28/16 12/29/16 12/29/16 12/29/16 07:00 15:00 23:00 07:00 15:00 23:00 Intake Total 1100 ml 1361 ml 312 ml 624 ml Output Total 300 ml 900 ml 350 ml 500 ml Balance 800 ml 461 ml -38 ml 124 ml Intake Oral 1100 ml 450 ml 120 ml 150 ml IV Total 911 ml 174 ml 474 ml Other 18 ml Output Urine Total 300 ml 900 ml 350 ml 500 ml # Bowel Movements 0 0 Result Diagram: 12/29/169 12/29/16318 Imaging Last Impressions Abdomen/Pelvis CT 12/28/16 0000 Signed Impressions: Service Date/Time: Wednesday, December 28, 2016 03:28 - CONCLUSION: Liver cirrhosis and stigmata of portal hypertension. Abundant ascites. Small bilateral pleural effusions and left base pneumonia. Derek Krause MD Abdomen Ultrasound 12/28/16 0000 Signed Impressions: Service Date/Time: Wednesday, December 28, 2016 06:43 - CONCLUSION: 1. Flow within the main portal vein is not confirmed with certainty which raises the possibility of portal vein thrombus. CT or MRI of the abdomen with contrast may be helpful for father evaluation of this finding. 2. Small heterogeneous nodular liver consistent with cirrhosis. 3. Ascites. 4. Splenomegaly. 5. Distended thick walled gallbladder with pericholecystic fluid and possible stone or polyp in the neck. Clinical correlation is recommended to rule out acute cholecystitis. 6. Poor visualization of the pancreas and right kidney due to shadowing bowel gas. Veto Cortez MD Chest X-Ray 12/25/162123 Signed Impressions: Service Date/Time: Sunday, December 25, 2016 21:45 - CONCLUSION: Cardiomegaly without evidence of acute cardiopulmonary process. Bakari Amado MD Objective Remarks GENERAL: This is a well-nourished, well-developed patient, in no apparent distress. CARDIOVASCULAR: Regular rate and regular rhythm without murmurs, gallops, or rubs. RESPIRATORY: Clear to auscultation. Breath sounds equal bilaterally. No wheezes , rales, or rhonchi. GASTROINTESTINAL: Abdomen soft, non-tender, nondistended. Normal, active bowel sounds MUSCULOSKELETAL: Extremities with bilateral pedal edema. NEURO: Alert & Oriented x4 to person, place, time, situation. Moves all ext x4 Procedures paracentesis Medications and IVs Current Medications IV Flush (NS Flush) 2 ml UNSCH PRN FLUSH FLUSH AFTER USING IV ACCESS; Start at 23:15 IV Flush (NS Flush) 2 ml BID FLUSH Last administered on 12/28/16 21:12; Start 12/26/16 at 09:00 Heparin Sodium (Porcine) (Heparin Inj) 5,000 units Q8H SQ Last administered on 12/28/16 09:23; Start 12/26/16 at 00:00; Stop 12/28/16 at 14:41; Status DC Naloxone HCl (Narcan Inj) 0.4 mg UNSCH PRN IV SEE LABEL COMMENTS; Start at 23:15 Acetaminophen (Tylenol) 650 mg Q4H PRN PO headaches/pain/ fever >101 Last administered on 12/28/16 05:54; Start 12/26/16 at 05:15 Diphenhydramine HCl (Benadryl) 25 mg ONCE ONCE PO Last administered on 05:32; Start 12/26/16 at 05:15; Stop 12/26/16 at 05:16; Status DC Furosemide (Lasix) 40 mg DAILY PO ; Start 12/26/16 at 09:00; Stop 12/26/16 at 11: 08; Status DC Mycophenolate Mofetil (Cellcept) 500 mg BID@18 PO Last administered on 05:06; Start 12/26/16 at 18:00; Stop 12/27/16 at 11:02; Status DC Nifedipine (Procardia Xl) 60 mg DAILY PO Last administered on 12/29/16 08:42; Start 12/26/16 at 09:00 Pantoprazole Sodium (Protonix) 40 mg DAILY PO ; Start 12/26/16 at 09:00; Stop 12/26/16 at 11:08; Status DC Prednisone (Deltasone) 20 mg DAILY PO ; Start 12/26/16 at 09:00; Stop 12/26/16 at 09:00; Status DC Alprazolam (Xanax) 0.125 mg Q6H PRN PO ANXIETY Last administered on 12/27/16 16 :34; Start 12/26/16 at 07:45; Stop 12/28/16 at 14:45; Status DC Miscellaneous (Pill Splitter) 1 ea UNSCH PRN OTHER SEE LABEL COMMENTS; Start at 08:00 Prednisone (Deltasone) 40 mg DAILY PO ; Start 12/26/16 at 09:00; Stop 12/26/16 at 11:08; Status DC Prednisone (Deltasone) 60 mg DAILY PO Last administered on 12/28/16 09:23; Start 12/27/16 at 09:00; Stop 12/28/16 at 20:05; Status DC Prednisone (Deltasone) 20 mg ONCE ONCE PO Last administered on 12/26/16 12:30 ; Start 12/26/16 at 11:15; Stop 12/26/16 at 11:16; Status DC Bumetanide (Bumex Inj) 2 mg BID@18 IV PUSH Last administered on 12/28/16 09: 22; Start 12/26/16 at 18:00; Stop 12/28/16 at 11:20; Status DC Diphenhydramine HCl (Benadryl) 25 mg HS PRN PO insomnia Last administered on 23:41; Start 12/27/16 at 01:45; Stop 12/28/16 at 14:46; Status DC Mycophenolate Mofetil (Cellcept) 1,000 mg BID@06,18 PO Last administered on 12/28 18:21; Start 12/27/16 at 18:00; Stop 12/28/16 at 20:05; Status DC Acetaminophen/ Hydrocodone Bitart ([place] 5-325 Mg) 1 tab Q6H PRN PO PAIN NOT RELIEVED BY TYLENOL Last administered on 12/28/16 11:37; Start 12/27/16 at 16:00 ; Stop 12/28/16 at 14:46; Status DC Albuterol Sulfate 2.5 mg 2.5 mg Q6HR NEB PRN INH SHORTNESS OF BREATH Last administered on 12/27/16 20:12; Start 12/27/16 at 16:00 Cefepime HCl/ Sodium Chloride (Maxipime Inj/NS Inj) 100 ml @ 200 mls/hr Q24H IV Last administered on 12/29/16 04:03; Start 12/28/16 at 05:00 Morphine Sulfate 2 mg 2 mg Q3H PRN IV PUSH breakthrough pain Last administered on 12/28/16 09:23; Start 12/28/16 at 05:30; Stop 12/28/16 at 14:46; Status DC Metronidazole 100 ml @ 100 mls/hr Q6H IV Last administered on 12/29/16 11:40; Start 12/28/16 at 06:00 Vancomycin HCl/ Sodium Chloride (Vancomycin Inj/ NS 500 ml Inj) 515 ml @ 257.5 mls/ hr ONCE ONCE IV Last administered on 12/28/16 08:40; Start 12/28/16 at 06: 45; Stop 12/28/16 at 08:44; Status DC Sevelamer Carbonate 800 mg 800 mg TIDAC PO Last administered on 12/29/16 11:41 ; Start 12/28/16 at 12:00 Bumetanide 100 ml @ 8 mls/hr CONTINUOUS IV Last administered on 12/28/16 15:11 ; Start 12/28/16 at 13:30; Stop 12/28/16 at 17:24; Status DC Heparin Sodium/ Dextrose (Heparin-D5W Inj) 250 ml @ 0 mls/hr TITRATE IV Last administered on 12/28/16 15:12; Start 12/28/16 at 14:45; Stop 12/28/16 at 21:51; Status DC Hydromorphone HCl (Dilaudid Pf Inj) 0.5 mg Q4H PRN IV PUSH pain 7-10 or not taking po Last administered on 12/29/16 03:12; Start 12/28/16 at 14:45 Oxycodone HCl (Roxicodone) 5 mg Q4H PRN PO pain 3-6 Last administered on 08:43; Start 12/28/16 at 14:45 Pantoprazole Sodium (Protonix Inj) 40 mg Q24H IV PUSH Last administered on 15:12; Start 12/28/16 at 15:00 Bumetanide (Bumetanide) 2 mg BID@09,18 PO Last administered on 12/29/16 08:42; Start 12/28/16 at 18:00 Mycophenolate Mofetil (Cellcept) 500 mg BID@06,18 PO Last administered on 05:33; Start 12/29/16 at 06:00 Prednisone 40 mg 40 mg DAILY PO Last administered on 12/29/16 08:43; Start 12/29 at 09:00 Heparin Sodium/ Dextrose (Heparin-D5W Inj) 250 ml @ 0 mls/hr TITRATE IV Last administered on 12/29/16 06:52; Start 12/28/16 at 22:00 Alprazolam (Xanax) 0.5 mg NOW PO Last administered on 12/28/16 23:22; Start 12/28/16 at 23:15; Stop 12/29/16 at 00:45; Status DC Ondansetron HCl (Zofran Inj) 4 mg Q6H PRN IV PUSH NAUSEA Last administered on 09:54; Start 12/29/16 at 09:30 A/P Assessment and Plan A/P Acute abdominal pain Fever- now has resolved Dilaudid as needed for pain --tylenol as needed for fever Atelectasis Incentive spirometer to bedside Head of bed at 30 out of bed with assistance IgA nephropathy Acute on chronic renal failure -continue prednisone and Cellcept Nephrology following: [place] -- Strict I/Os Alcoholic cirrhosis Acute abdominal pain Possible acute cholecystitis Trend LFTs Diagnostic paracentesis done; will follow the fluid culture. Thrombocytopeniasecondary to cirrhosis Possible portal vein thrombosis Leukocytosis Sepsis Possible acute cholecystitis Possible spontaneous bacterial peritonitis Daily CBC Daily coags on Heparin drip Vancomycin with pharmacy dosing Cefepime Flagyl Follow-up cultures -surgery and GI following. Hyperglycemia of critical illness -- SSI, every 6 hours, medium scale Prophylaxis: GI Prophylaxis Protonix 40 mg IV every 12 hours DVT Prophylaxis -- SCDs Heparin infusion for transfer to floor. d/w the RN and . Sachi Medeiros MD Dec 29, 2016 13:00
[2016-12-29] MEDS: ALPRAZolam 0.25 MG TAB PO PRN (13:31)
--- NOTE | 2016-12-29 13:42 | HHI.NPPN ---
Subjective Complaints: Obesity General Problems: Edema Renal Failure: Chronic, Acute Review of Systems General Constitutional: Fatigue Cardiovascular Cardiac: Edema Objective Data Data 12/28/16 12/29/16 19:00 07:00 Intake Total 1361 ml 936 ml Output Total 900 ml 850 ml Balance 461 ml 86 ml Intake Oral 450 ml 270 ml IV Total 911 ml 648 ml Other 18 ml Output Urine Total 900 ml 850 ml # Bowel Movements 0 Vital Signs Date Time Temp Pulse Resp B/P Pulse Ox O2 Delivery O2 Flow Rate FiO2 12/29/16 12:00 94 12/29/16 12:00 98.1 90 23 150/83 98 12/29/16 10:00 93 12/29/16 09:26 97 21 12/29/16 08:00 98 12/29/16 08:00 97.9 98 20 137/72 98 12/29/16 07:00 98 Room Air 12/29/16 06:00 97 12/29/16 04:00 98 12/29/16 04:00 97.6 95 22 127/68 95 12/29/16 02:00 90 12/29/16 00:00 98.0 106 19 135/68 94 12/29/16 00:00 94 12/28/16 22:00 93 12/28/16 20:00 98.1 96 19 129/74 99 12/28/16 20:00 96 12/28/16 19:00 98 Room Air 12/28/16 18:00 92 12/28/16 16:00 98.1 103 20 127/72 97 12/28/16 16:00 95 12/28/16 14:00 92 -: 12/29/16 0319 12/29/16 0319 Microbiology 12/28/16 Gram Stain - Final, Resulted 12/28/16 Body Fluid Culture, Resulted Pending Physical Exam General Appearance: Well Developed, Well Nourished, Comfortable, Obese Throat Throat Exam: Oral Mucosa [place] & Moist Pulmonary Resp Exam: Breath Sounds Equal, No Distress, Decreased Bases Cardiology CV Exam: Regular, Normal Sinus Rhythm Gastrointestinal/Abdomen GI Exam: Soft, Non-Tender Musculoskeletal MS Exam: Joints Intact, Normal Tone Integumentary Skin Exam: Clear, Warm, Dry, Intact Extremeties Extremities Exam: Pedal Pulses Palpable, Moderate Edema, Pitting Edema, Dependent Edema Neurologic Neuro Exam: Alert, Awake, Oriented, Speech Clear, Moving All Extremities Psychiatric Psych Exam: Appropriate Responses Assessment/Plan Discussed Condition With: Patient Assessment Summary: SAL/Acute Renal Failure, Fluid/Volume Overload, Hypertension Problem List: (1) Acute renal failure Plan: in a pt with resolving renal failure who was dialysis dependent until due to Iga nephropathy with RPGN exacerbation may be due to too rapidly reducing the rejection regimen (he did not fill the cellcept) medications were restarted, CellCept dose increased, also on prednisone 60 mg daily) start Bumex 2mg po bid, monitor response. He is making urine monitor renal function, urine output uop 1750 he may need dialysis depending on response to diuretics renal panel in am (2) RPGN (rapidly progressive glomerulonephritis) Plan: see above (3) IgA nephropathy determined by renal biopsy Plan: continue immunosuppressive medications as above monitor renal function management as above (4) Thrombocytopenia Plan: it was thought cirrhosis may have been the etiology monitor, improved compared to previous admission no active bleeding (5) Leukocytosis Plan: with abdominal pain, has PNA, possible cholelithiasis surgery consulted may require paracentesis on vancomycin , Flagyl, cefepime monitor clinically , carefully monitor drug levels Problem Qualifiers (1) Acute renal failure: Qualified Code: N17.9 - Acute renal failure, unspecified acute renal failure type Yas Welsh MD Dec 29, 2016 13:42
[2016-12-29 15:45] LABS: APTT (PATIENT) 49.9 SEC (24.3-30.1)
[2016-12-29] MEDS: PANTOPRAZOLE SODIUM 40 MG VIAL IV PUSH SCH (16:01)
[2016-12-29 23:32] LABS: APTT (PATIENT) 65.1 SEC (24.3-30.1)
[2016-12-29 23:56] LABS: BACTERIA, URINE RARE /hpf; BLOOD, URINE MOD (NEG); COMMENT (UR) CULTURE INDICATED; CULTURE IF INDICATED CULTURE INDICATED; GLUCOSE,URINE NEG (NEG); HYALINE CAST, URINE 10 /lpf (RARE); KETONE, URINE NEG (NEG); MUCUS URINE FEW /lpf (OCC); NITRITE,URINE NEG (NEG); SQUAMOUS EPITHELIAL CELL URINE <1 /hpf (0-5)
[2016-12-30] VITALS (8 sets, daily range): BP systolic 109–128; BP diastolic 60–75; PULSE 89–98; RESP 17–20; TEMP 96.3–97.9; O2SAT 97–100
[2016-12-30 00:02] LABS: URINE COLOR RED (YELLW/STRAW)
[2016-12-30] MEDS: metroNIDAZOLE 500 MG INJ 100 ML IV SCH ×4 (00:10→17:10)
[2016-12-30] MEDS: ALPRAZolam 0.25 MG TAB PO PRN ×2 (01:39→22:05)
[2016-12-30] MEDS: HEPARIN-D5W INJ 250 ML IV SCH (01:58)
[2016-12-30] MEDS: HYDROmorphone HCL PF 1 MG/ML VIAL IV PUSH PRN ×5 (03:58→22:05)
[2016-12-30] MEDS: CEFEPIME INJ 1,000 MG in SODIUM CHLORIDE 0.9% INJ 100 ML IV SCH (04:01)
[2016-12-30] MEDS: MYCOPHENOLATE MOFETIL 500 MG TAB PO SCH ×2 (05:09→17:08)
--- NOTE | 2016-12-30 07:52 | HHI.PR ---
Subjective Remarks in no acute distress. afebrile. says that could sleep better last night. abdominal pain has improved. Objective Vitals Vital Signs Date Time Temp Pulse Resp B/P Pulse Ox O2 Delivery O2 Flow Rate FiO2 12/30/16 04:00 97.3 89 19 124/75 97 12/30/16 00:00 97.3 96 18 127/71 98 12/29/16 21:05 Room Air 12/29/16 20:52 95 21 12/29/16 20:00 96.7 96 21 153/66 100 12/29/16 20:00 92 12/29/16 17:35 96.3 94 20 133/78 96 12/29/16 16:00 88 12/29/16 16:00 97.6 88 22 128/62 96 12/29/16 14:00 91 12/29/16 12:00 94 12/29/16 12:00 98.1 90 23 150/83 98 12/29/16 10:00 93 12/29/16 09:26 97 21 12/29/16 08:00 98 12/29/16 08:00 97.9 98 20 137/72 98 I/O 12/29/16 12/29/16 12/29/16 12/30/16 12/30/16 12/30/16 07:00 15:00 23:00 07:00 15:00 23:00 Intake Total 624 ml 1097 ml 720 ml 960 ml Output Total 500 ml 325 ml 250 ml 550 ml Balance 124 ml 772 ml 470 ml 410 ml Intake Oral 150 ml 750 ml 720 ml 960 ml IV Total 474 ml 347 ml Output Urine Total 500 ml 325 ml 250 ml 550 ml # Bowel Movements 0 0 0 Result Diagram: 12/29/169 12/29/169 Imaging Last Impressions Abdomen/Pelvis CT 12/28/16 0000 Signed Impressions: Service Date/Time: Wednesday, December 28, 2016 03:28 - CONCLUSION: Liver cirrhosis and stigmata of portal hypertension. Abundant ascites. Small bilateral pleural effusions and left base pneumonia. Derek Krause MD Abdomen Ultrasound 12/28/16 0000 Signed Impressions: Service Date/Time: Wednesday, December 28, 2016 06:43 - CONCLUSION: 1. Flow within the main portal vein is not confirmed with certainty which raises the possibility of portal vein thrombus. CT or MRI of the abdomen with contrast may be helpful for father evaluation of this finding. 2. Small heterogeneous nodular liver consistent with cirrhosis. 3. Ascites. 4. Splenomegaly. 5. Distended thick walled gallbladder with pericholecystic fluid and possible stone or polyp in the neck. Clinical correlation is recommended to rule out acute cholecystitis. 6. Poor visualization of the pancreas and right kidney due to shadowing bowel gas. Veto Cortez MD Chest X-Ray 12/25/162123 Signed Impressions: Service Date/Time: Sunday, December 25, 2016 21:45 - CONCLUSION: Cardiomegaly without evidence of acute cardiopulmonary process. Bakari Amado MD Objective Remarks GENERAL: This is a well-nourished, well-developed patient, in no apparent distress. CARDIOVASCULAR: Regular rate and regular rhythm without murmurs, gallops, or rubs. RESPIRATORY: Clear to auscultation. Breath sounds equal bilaterally. No wheezes , rales, or rhonchi. GASTROINTESTINAL: Abdomen soft, non-tender, distended. Normal, active bowel sounds MUSCULOSKELETAL: Extremities with bilateral pedal edema. NEURO: Alert & Oriented x4 to person, place, time, situation. Moves all ext x4 Procedures paracentesis Medications and IVs Current Medications IV Flush (NS Flush) 2 ml UNSCH PRN FLUSH FLUSH AFTER USING IV ACCESS; Start at 23:15 IV Flush (NS Flush) 2 ml BID FLUSH Last administered on 12/28/16 21:12; Start 12/26/16 at 09:00 Heparin Sodium (Porcine) (Heparin Inj) 5,000 units Q8H SQ Last administered on 12/28/16 09:23; Start 12/26/16 at 00:00; Stop 12/28/16 at 14:41; Status DC Naloxone HCl (Narcan Inj) 0.4 mg UNSCH PRN IV SEE LABEL COMMENTS; Start at 23:15 Acetaminophen (Tylenol) 650 mg Q4H PRN PO headaches/pain/ fever >101 Last administered on 12/28/16 05:54; Start 12/26/16 at 05:15 Diphenhydramine HCl (Benadryl) 25 mg ONCE ONCE PO Last administered on 05:32; Start 12/26/16 at 05:15; Stop 12/26/16 at 05:16; Status DC Furosemide (Lasix) 40 mg DAILY PO ; Start 12/26/16 at 09:00; Stop 12/26/16 at 11: 08; Status DC Mycophenolate Mofetil (Cellcept) 500 mg BID@18 PO Last administered on 05:06; Start 12/26/16 at 18:00; Stop 12/27/16 at 11:02; Status DC Nifedipine (Procardia Xl) 60 mg DAILY PO Last administered on 12/29/16 08:42; Start 12/26/16 at 09:00 Pantoprazole Sodium (Protonix) 40 mg DAILY PO ; Start 12/26/16 at 09:00; Stop 12/26/16 at 11:08; Status DC Prednisone (Deltasone) 20 mg DAILY PO ; Start 12/26/16 at 09:00; Stop 12/26/16 at 09:00; Status DC Alprazolam (Xanax) 0.125 mg Q6H PRN PO ANXIETY Last administered on 12/27/16 16 :34; Start 12/26/16 at 07:45; Stop 12/28/16 at 14:45; Status DC Miscellaneous (Pill Splitter) 1 ea UNSCH PRN OTHER SEE LABEL COMMENTS; Start at 08:00 Prednisone (Deltasone) 40 mg DAILY PO ; Start 12/26/16 at 09:00; Stop 12/26/16 at 11:08; Status DC Prednisone (Deltasone) 60 mg DAILY PO Last administered on 12/28/16 09:23; Start 12/27/16 at 09:00; Stop 12/28/16 at 20:05; Status DC Prednisone (Deltasone) 20 mg ONCE ONCE PO Last administered on 12/26/16 12:30 ; Start 12/26/16 at 11:15; Stop 12/26/16 at 11:16; Status DC Bumetanide (Bumex Inj) 2 mg BID@18 IV PUSH Last administered on 12/28/16 09: 22; Start 12/26/16 at 18:00; Stop 12/28/16 at 11:20; Status DC Diphenhydramine HCl (Benadryl) 25 mg HS PRN PO insomnia Last administered on 23:41; Start 12/27/16 at 01:45; Stop 12/28/16 at 14:46; Status DC Mycophenolate Mofetil (Cellcept) 1,000 mg BID@06,18 PO Last administered on 12/28 18:21; Start 12/27/16 at 18:00; Stop 12/28/16 at 20:05; Status DC Acetaminophen/ Hydrocodone Bitart ([place] 5-325 Mg) 1 tab Q6H PRN PO PAIN NOT RELIEVED BY TYLENOL Last administered on 12/28/16 11:37; Start 12/27/16 at 16:00 ; Stop 12/28/16 at 14:46; Status DC Albuterol Sulfate 2.5 mg 2.5 mg Q6HR NEB PRN INH SHORTNESS OF BREATH Last administered on 12/27/16 20:12; Start 12/27/16 at 16:00 Cefepime HCl/ Sodium Chloride (Maxipime Inj/NS Inj) 100 ml @ 200 mls/hr Q24H IV Last administered on 12/30/16 04:01; Start 12/28/16 at 05:00 Morphine Sulfate 2 mg 2 mg Q3H PRN IV PUSH breakthrough pain Last administered on 12/28/16 09:23; Start 12/28/16 at 05:30; Stop 12/28/16 at 14:46; Status DC Metronidazole 100 ml @ 100 mls/hr Q6H IV Last administered on 12/30/16 05:08; Start 12/28/16 at 06:00 Vancomycin HCl/ Sodium Chloride (Vancomycin Inj/ NS 500 ml Inj) 515 ml @ 257.5 mls/ hr ONCE ONCE IV Last administered on 12/28/16 08:40; Start 12/28/16 at 06: 45; Stop 12/28/16 at 08:44; Status DC Sevelamer Carbonate 800 mg 800 mg TIDAC PO Last administered on 12/29/16 16:01 ; Start 12/28/16 at 12:00 Bumetanide 100 ml @ 8 mls/hr CONTINUOUS IV Last administered on 12/28/16 15:11 ; Start 12/28/16 at 13:30; Stop 12/28/16 at 17:24; Status DC Heparin Sodium/ Dextrose (Heparin-D5W Inj) 250 ml @ 0 mls/hr TITRATE IV Last administered on 12/28/16 15:12; Start 12/28/16 at 14:45; Stop 12/28/16 at 21:51; Status DC Hydromorphone HCl (Dilaudid Pf Inj) 0.5 mg Q4H PRN IV PUSH pain 7-10 or not taking po Last administered on 12/30/16 03:58; Start 12/28/16 at 14:45 Oxycodone HCl (Roxicodone) 5 mg Q4H PRN PO pain 3-6 Last administered on 18:22; Start 12/28/16 at 14:45 Pantoprazole Sodium (Protonix Inj) 40 mg Q24H IV PUSH Last administered on 16:01; Start 12/28/16 at 15:00 Bumetanide (Bumetanide) 2 mg BID@09,18 PO Last administered on 12/29/16 18:19; Start 12/28/16 at 18:00 Mycophenolate Mofetil (Cellcept) 500 mg BID@06,18 PO Last administered on 05:09; Start 12/29/16 at 06:00 Prednisone 40 mg 40 mg DAILY PO Last administered on 12/29/16 08:43; Start 12/29 at 09:00 Heparin Sodium/ Dextrose (Heparin-D5W Inj) 250 ml @ 0 mls/hr TITRATE IV Last administered on 12/30/16 01:58; Start 12/28/16 at 22:00 Alprazolam (Xanax) 0.5 mg NOW PO Last administered on 12/28/16 23:22; Start 12/28/16 at 23:15; Stop 12/29/16 at 00:45; Status DC Ondansetron HCl (Zofran Inj) 4 mg Q6H PRN IV PUSH NAUSEA Last administered on 23:19; Start 12/29/16 at 09:30 Alprazolam (Xanax) 0.125 mg Q12HR PRN PO ANXIETY Last administered on 12/30/16 01:39; Start 12/29/16 at 13:00 A/P Assessment and Plan A/P Acute abdominal pain- now improving. Fever- now has resolved Dilaudid as needed for pain --tylenol as needed for fever Atelectasis Incentive spirometer to bedside out of bed with assistance IgA nephropathy Acute on chronic renal failure -continue prednisone and Cellcept -started on diuretic -monitor renal function -possible dialysis pending the response to diuretics Nephrology following:Dr. Mayer -- Strict I/Os Alcoholic cirrhosis Acute abdominal pain Possible acute cholecystitis Trend LFTs Diagnostic paracentesis done;fluid culture negative so far. -GI following. 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 Hyperglycemia of critical illness -- SSI, every 6 hours, medium scale Prophylaxis: GI Prophylaxis Protonix 40 mg IV every 12 hours DVT Prophylaxis -- SCDs Heparin infusion for transfer to floor. d/w the RN and . Sachi Medeiros MD Dec 30, 2016 07:52
[2016-12-30] MEDS ORDERED: PILL SPLITTER OTHER PRN (08:00)
[2016-12-30 08:12] LABS: HEMATOCRIT 26.1 % (39.0-51.0); MEAN CELL VOLUME 92.6 FL (80.0-100.0); MEAN CORPUSCULAR HEMOGLOBIN 32.1 PG (27.0-34.0); MEAN CORPUSCULAR HGB CONC 34.7 % (32.0-36.0); PLATELET COUNT 127 TH/MM3 (150-450); RED BLOOD COUNT 2.82 MIL/MM3 (4.50-5.90); RED CELL DISTRIBUTION WIDTH 14.4 % (11.6-17.2); REVIEW FLAG FINAL; WHITE BLOOD COUNT 21.5 TH/MM3 (4.0-11.0)
[2016-12-30 08:23] LABS: APTT (PATIENT) 81.2 SEC (24.3-30.1); PROTHROMBIN TIME - PATIENT 11.1 SEC (9.8-11.6)
[2016-12-30 08:32] LABS: BICARBONATE 20.1 MEQ/L (21.0-32.0); POTASSIUM 3.9 MEQ/L (3.5-5.1)
[2016-12-30 08:34] LABS: INDIRECT BILIRUBIN 0.5 MG/DL (0.0-0.8); TOTAL BILIRUBIN ADULT 0.7 MG/DL (0.2-1.0)
[2016-12-30] MEDS: NIFEdipine 60 MG SUSTAINED RELEASE TAB PO SCH (09:15)
[2016-12-30] MEDS: SEVELAMER CARBONATE 800 MG TAB PO SCH ×3 (09:15→17:00)
[2016-12-30] MEDS: BUMETANIDE 1 MG TAB PO SCH ×2 (09:15→17:08)
[2016-12-30] MEDS: predniSONE 20 MG TAB PO SCH (09:15)
[2016-12-30] MEDS: SODIUM CHLORIDE 0.9% FLUSH 5 ML FLUSH FLUSH SCH ×2 (09:32→20:51)
--- NOTE | 2016-12-30 11:41 | HHI.PR ---
Subjective Subjective Notes feels better today, tolerating some po Objective Vitals/I&O Vital Signs Date Time Temp Pulse Resp B/P Pulse Ox O2 Delivery O2 Flow Rate FiO2 12/30/16 09:20 Room Air 12/30/16 09:20 91 12/30/16 08:00 96.9 18 127/72 99 12/29/16 20:52 21 Labs Laboratory Tests Test 12/29/16 12/29/16 12/29/16 12/30/16 14:55 21:57 23:15 06:45 Activated Partial 49.9 65.1 81.2 Thromboplast Time Urine Color RED Urine Turbidity HAZY Urine pH 6.0 Urine Specific [place] 1.016 Urine Protein 300 Urine Glucose (UA) NEG Urine Ketones NEG Urine Occult Blood MOD Urine Nitrite NEG Urine Bilirubin NEG Urine Urobilinogen LESS THAN 2.0 Urine Leukocyte Esterase SMALL Urine RBC Urine WBC 20 Urine Squamous Epithelial <1 Cells Urine Bacteria RARE Urine Hyaline Casts 10 Urine Mucus FEW Microscopic Urinalysis Comment CULTURE INDICATED White Blood Count 21.5 Red Blood Count 2.82 Hemoglobin 9.0 Hematocrit 26.1 Mean Corpuscular Volume 92.6 Mean Corpuscular Hemoglobin 32.1 Mean Corpuscular Hemoglobin 34.7 Concent Red Cell Distribution Width 14.4 Platelet Count 127 Mean Platelet Volume 7.7 Prothrombin Time 11.1 Prothromb Time International 1.0 Ratio Sodium Level 132 Potassium Level 3.9 Chloride Level 93 Carbon Dioxide Level 20.1 Anion Gap 19 Blood Urea Nitrogen 140 Creatinine 4.46 Estimat Glomerular Filtration 14 Rate Random Glucose 114 Calcium Level 7.9 Total Bilirubin 0.7 Direct Bilirubin 0.2 Indirect Bilirubin 0.5 Aspartate Amino Transf 21 (AST/SGOT) Alanine Aminotransferase 25 (ALT/SGPT) Alkaline Phosphatase 88 Total Protein 4.7 Albumin 2.0 Date/Time Procedure Status Source Growth 12/29/16 23:15 Urine Culture Received Urine Clean Catch Pending 12/28/16 16:15 Gram Stain - Final Resulted Fluid Peritoneal Fluid 12/28/16 16:15 Body Fluid Culture - Preliminary Resulted Fluid Peritoneal Fluid NO GROWTH IN 48 HOURS. 12/28/16 06:35 Aerobic Blood Culture - Preliminary Resulted Blood Peripheral NO GROWTH IN 2 DAYS 12/28/16 06:35 Anaerobic Blood Culture - Preliminary Resulted Blood Peripheral NO GROWTH IN 2 DAYS Radiology Last 48 hours Impressions Abdomen/Pelvis CT 12/28/16 0000 Signed Impressions: Service Date/Time: Wednesday, December 28, 2016 03:28 - CONCLUSION: Liver cirrhosis and stigmata of portal hypertension. Abundant ascites. Small bilateral pleural effusions and left base pneumonia. Derek Krause MD Abdomen Ultrasound 12/28/16 0000 Signed Impressions: Service Date/Time: Wednesday, December 28, 2016 06:43 - CONCLUSION: 1. Flow within the main portal vein is not confirmed with certainty which raises the possibility of portal vein thrombus. CT or MRI of the abdomen with contrast may be helpful for father evaluation of this finding. 2. Small heterogeneous nodular liver consistent with cirrhosis. 3. Ascites. 4. Splenomegaly. 5. Distended thick walled gallbladder with pericholecystic fluid and possible stone or polyp in the neck. Clinical correlation is recommended to rule out acute cholecystitis. 6. Poor visualization of the pancreas and right kidney due to shadowing bowel gas. Veto Cortez MD Abdomen: Non-distended, Non-tender, BS normal A/P Assessment and Plan abdominal pain - resolved will see prn - please call with any questions/concerns has had extensive gallbladder work up in the past and this was unremarkable. doubt cholecystitis as source of pain FU with Dr. Araujo in office PRN thanks Julián Brannon MD Dec 30, 2016 11:41
[2016-12-30] MEDS: PANTOPRAZOLE SODIUM 40 MG VIAL IV PUSH SCH (14:12)
--- NOTE | 2016-12-30 14:15 | HHI.NPPN ---
Subjective Complaints: Obesity General Problems: Edema Renal Failure: Chronic, Acute Review of Systems General Constitutional: Fatigue Cardiovascular Cardiac: Edema Objective Data Data 12/29/16 12/30/16 19:00 07:00 Intake Total 1097 ml 1680 ml Output Total 325 ml 800 ml Balance 772 ml 880 ml Intake Oral 750 ml 1680 ml IV Total 347 ml Output Urine Total 325 ml 800 ml # Bowel Movements 0 0 Vital Signs Date Time Temp Pulse Resp B/P Pulse Ox O2 Delivery O2 Flow Rate FiO2 12/30/16 13:14 96.3 90 18 116/64 97 12/30/16 09:20 Room Air 12/30/16 09:20 91 12/30/16 08:00 96.9 90 18 127/72 99 12/30/16 04:00 97.3 89 19 124/75 97 12/30/16 00:00 97.3 96 18 127/71 98 12/29/16 21:05 Room Air 12/29/16 20:52 95 21 12/29/16 20:00 96.7 96 21 153/66 100 12/29/16 20:00 92 12/29/16 17:35 96.3 94 20 133/78 96 12/29/16 16:00 88 12/29/16 16:00 97.6 88 22 128/62 96 -: 12/30/16 0645 12/30/16 0645 Microbiology 12/29/16 Urine Culture - Preliminary, Resulted RESULTS PENDING Physical Exam General Appearance: Well Developed, Well Nourished, Comfortable, Obese Throat Throat Exam: Oral Mucosa [place] & Moist Pulmonary Resp Exam: Breath Sounds Equal, No Distress, Decreased Bases Cardiology CV Exam: Regular, Normal Sinus Rhythm Gastrointestinal/Abdomen GI Exam: Soft, Non-Tender Musculoskeletal MS Exam: Joints Intact, Normal Tone Integumentary Skin Exam: Clear, Warm, Dry, Intact Extremeties Extremities Exam: Pedal Pulses Palpable, Moderate Edema, Pitting Edema, Dependent Edema Neurologic Neuro Exam: Alert, Awake, Oriented, Speech Clear, Moving All Extremities Psychiatric Psych Exam: Appropriate Responses Assessment/Plan Discussed Condition With: Patient Assessment Summary: SAL/Acute Renal Failure, Fluid/Volume Overload, Hypertension Problem List: (1) Acute renal failure Plan: in a pt with resolving renal failure who was dialysis dependent until due to Iga nephropathy with RPGN exacerbation may be due to too rapidly reducing the rejection regimen (he did not fill the cellcept) medications were restarted, CellCept dose increased, also on prednisone 60 mg daily) start Bumex 2mg po bid, monitor response. He is making urine monitor renal function, urine output uop 1125 cr 4.46 high consider dialysis he may need dialysis depending on response to diuretics renal panel in am (2) RPGN (rapidly progressive glomerulonephritis) Plan: see above (3) IgA nephropathy determined by renal biopsy Plan: continue immunosuppressive medications as above monitor renal function management as above (4) Thrombocytopenia Plan: it was thought cirrhosis may have been the etiology monitor, improved compared to previous admission no active bleeding (5) Leukocytosis Plan: with abdominal pain, has PNA, possible cholelithiasis surgery consulted may require paracentesis on vancomycin , Flagyl, cefepime monitor clinically , carefully monitor drug levels Problem Qualifiers (1) Acute renal failure: Qualified Code: N17.9 - Acute renal failure, unspecified acute renal failure type Yas Welsh MD Dec 30, 2016 14:15
[2016-12-30 16:39] LABS: APTT (PATIENT) 31.5 SEC (24.3-30.1)
--- NOTE | 2016-12-30 17:06 | HHI.GIFU ---
Subjective Remarks Up in chair. States he feels like his swelling/edema is worsening. No GI bleeding. Mild nausea without vomiting. Tolerating diet. (Estela Rondon) Objective Vitals I&O Vital Signs Date Time Temp Pulse Resp B/P Pulse Ox O2 Delivery O2 Flow Rate FiO2 12/30/16 13:14 96.3 90 18 116/64 97 12/30/16 09:20 Room Air 12/30/16 09:20 91 12/30/16 08:00 96.9 90 18 127/72 99 12/30/16 04:00 97.3 89 19 124/75 97 12/30/16 00:00 97.3 96 18 127/71 98 12/29/16 21:05 Room Air 12/29/16 20:52 95 21 12/29/16 20:00 96.7 96 21 153/66 100 12/29/16 20:00 92 12/29/16 17:35 96.3 94 20 133/78 96 I/O 12/29/16 12/29/16 12/29/16 12/30/16 12/30/16 12/30/16 07:00 15:00 23:00 07:00 15:00 23:00 Intake Total 624 ml 1097 ml 720 ml 960 ml 1920 ml Output Total 500 ml 325 ml 250 ml 550 ml Balance 124 ml 772 ml 470 ml 410 ml 1920 ml Intake Oral 150 ml 750 ml 720 ml 960 ml 1920 ml IV Total 474 ml 347 ml Output Urine Total 500 ml 325 ml 250 ml 550 ml # Voids 3 # Bowel Movements 0 0 0 Laboratory Laboratory Tests Test 12/29/16 12/29/16 12/30/16 12/30/16 21:57 23:15 06:45 15:59 Activated Partial 65.1 81.2 31.5 Thromboplast Time Urine Color RED Urine Turbidity HAZY Urine pH 6.0 Urine Specific [place] 1.016 Urine Protein 300 Urine Glucose (UA) NEG Urine Ketones NEG Urine Occult Blood MOD Urine Nitrite NEG Urine Bilirubin NEG Urine Urobilinogen LESS THAN 2.0 Urine Leukocyte Esterase SMALL Urine RBC Urine WBC 20 Urine Squamous Epithelial <1 Cells Urine Bacteria RARE Urine Hyaline Casts 10 Urine Mucus FEW Microscopic Urinalysis Comment CULTURE INDICATED White Blood Count 21.5 Red Blood Count 2.82 Hemoglobin 9.0 Hematocrit 26.1 Mean Corpuscular Volume 92.6 Mean Corpuscular Hemoglobin 32.1 Mean Corpuscular Hemoglobin 34.7 Concent Red Cell Distribution Width 14.4 Platelet Count 127 Mean Platelet Volume 7.7 Prothrombin Time 11.1 Prothromb Time International 1.0 Ratio Sodium Level 132 Potassium Level 3.9 Chloride Level 93 Carbon Dioxide Level 20.1 Anion Gap 19 Blood Urea Nitrogen 140 Creatinine 4.46 Estimat Glomerular Filtration 14 Rate Random Glucose 114 Calcium Level 7.9 Total Bilirubin 0.7 Direct Bilirubin 0.2 Indirect Bilirubin 0.5 Aspartate Amino Transf 21 (AST/SGOT) Alanine Aminotransferase 25 (ALT/SGPT) Alkaline Phosphatase 88 Total Protein 4.7 Albumin 2.0 Date/Time Procedure Status Source Growth 12/29/16 23:15 Urine Culture - Preliminary Resulted Urine Clean Catch RESULTS PENDING 12/28/16 16:15 Gram Stain - Final Resulted Fluid Peritoneal Fluid 12/28/16 16:15 Body Fluid Culture - Preliminary Resulted Fluid Peritoneal Fluid NO GROWTH IN 48 HOURS. 12/28/16 06:35 Aerobic Blood Culture - Preliminary Resulted Blood Peripheral NO GROWTH IN 2 DAYS 12/28/16 06:35 Anaerobic Blood Culture - Preliminary Resulted Blood Peripheral NO GROWTH IN 2 DAYS Imaging Last Impressions Abdomen/Pelvis CT 12/28/16 0000 Signed Impressions: Service Date/Time: Wednesday, December 28, 2016 03:28 - CONCLUSION: Liver cirrhosis and stigmata of portal hypertension. Abundant ascites. Small bilateral pleural effusions and left base pneumonia. Derek Krause MD Abdomen Ultrasound 12/28/16 0000 Signed Impressions: Service Date/Time: Wednesday, December 28, 2016 06:43 - CONCLUSION: 1. Flow within the main portal vein is not confirmed with certainty which raises the possibility of portal vein thrombus. CT or MRI of the abdomen with contrast may be helpful for father evaluation of this finding. 2. Small heterogeneous nodular liver consistent with cirrhosis. 3. Ascites. 4. Splenomegaly. 5. Distended thick walled gallbladder with pericholecystic fluid and possible stone or polyp in the neck. Clinical correlation is recommended to rule out acute cholecystitis. 6. Poor visualization of the pancreas and right kidney due to shadowing bowel gas. Veto Cortez MD Chest X-Ray 12/25/162123 Signed Impressions: Service Date/Time: Sunday, December 25, 2016 21:45 - CONCLUSION: Cardiomegaly without evidence of acute cardiopulmonary process. Bakari Amado MD Physical Exam HEENT: Normocephalic; atraumatic; no jaundice CHEST: CTA CARDIAC: RRR ABDOMEN: Soft, obese, nondistended, nontender; hepatosplenomegaly; bowel sounds are present in all four quadrants. EXTREMITIES: Generalized edema, 3-4 BLE SKIN: Normal; no rash; no jaundice. 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 (Estela Rondon) Assessment and Plan Plan ASSESSMENT: - Alcoholic Cirrhosis/ascites. Abdomen/Pelvis CT (12/28/16)----> Liver cirrhosis and stigmata of portal hypertension. Abundant ascites. Small bilateral pleural effusions and left base pneumonia. Abdomen Ultrasound (12/28/16)----> 1. Flow within the main portal vein is not confirmed with certainty which raises the possibility of portal vein thrombus. CT or MRI of the abdomen with contrast may be helpful for father evaluation of this finding. 2. Small heterogeneous nodular liver consistent with cirrhosis. 3. Ascites. 4. Splenomegaly. 5. Distended thick walled gallbladder with pericholecystic fluid and possible stone or polyp in the neck. Clinical correlation is recommended to rule out acute cholecystitis. 6. Poor visualization of the pancreas and right kidney due to shadowing bowel gas. He was evaluated by our GI services earlier this month, he had EGD/colonoscopy on (12/03/16) ----> moderate diverticulosis small internal hemorrhoid, external hemorrhoids, poor prep, erythema gastritis, bx benign. S/P GS evaluation. - Ascites. S/P paracentesis 12/28/16, (+) WBC, Fluid cx no growth 48 hours. Cont. Tx for possible SBP x 10 days. Bumex per renal. - Questionable Portal vein thrombosis. No need for anticoagulation at this time , patient has liver cirrhosis and is a high risk for bleeding. - Anemia, no bleeding, EGD/colonoscopy on (12/03/16) ----> moderate diverticulosis small internal hemorrhoid, external hemorrhoids, poor prep, erythema gastritis, bx benign - SAL, Glomerulonephritis. On Prednisone and Cellcept per renal. - Leukocytosis, persistent WBC 21.5. - Thrombocytopenia. 127 - Abdomen pain. S/P GS eval, no surgical intervention Plan: - Renal diet - No need for anticoagulation at this time - Cont. Abx x 10 days for possible sbp tx - Bumex being managed by renal - Add Albumin - Cont. PPI - Monitor electrolytes - Supportive care - Patient seen and examined by Dr. Cristina and myself and this note is written on his behalf. (Estela Rondon) Physician Comments Patient Seen and examined Agree with above Continue with current supportive care Monitor labs Portal vein thrombosis is common in patients with cirrhosis and no need for anticoagulation I'm not sure about the SBP but I would continue with antibiotics at this point consider infectious disease evaluation (Reji Cristina MD) Estela Rondon Dec 30, 2016 17:06 Reji Cristina MD Dec 30, 2016 19:36
[2016-12-30] MEDS: ALBUMIN HUMAN 25% 12.5 GM/50 ML BAGP IV SCH (20:45)
[2016-12-31] VITALS (10 sets, daily range): BP systolic 109–129; BP diastolic 53–70; PULSE 73–96; RESP 16–20; TEMP 96–97.5; O2SAT 94–98
[2016-12-31] MEDS: metroNIDAZOLE 500 MG INJ 100 ML IV SCH ×5 (00:10→23:46)
[2016-12-31] MEDS: HYDROmorphone HCL PF 1 MG/ML VIAL IV PUSH PRN ×6 (02:17→22:40)
[2016-12-31] MEDS: CEFEPIME INJ 1,000 MG in SODIUM CHLORIDE 0.9% INJ 100 ML IV SCH (04:39)
[2016-12-31] MEDS: MYCOPHENOLATE MOFETIL 500 MG TAB PO SCH ×2 (05:57→18:12)
[2016-12-31 07:51] LABS: HEMATOCRIT 25.6 % (39.0-51.0); MEAN CELL VOLUME 92.4 FL (80.0-100.0); MEAN CORPUSCULAR HEMOGLOBIN 32.6 PG (27.0-34.0); MEAN CORPUSCULAR HGB CONC 35.2 % (32.0-36.0); PLATELET COUNT 138 TH/MM3 (150-450); RED BLOOD COUNT 2.77 MIL/MM3 (4.50-5.90); RED CELL DISTRIBUTION WIDTH 14.2 % (11.6-17.2); WHITE BLOOD COUNT 18.9 TH/MM3 (4.0-11.0)
--- NOTE | 2016-12-31 08:02 | HHI.PR ---
Subjective Remarks resting comfortably with no distress. overall doing better. abdominal pain is better. d/w the RN and no acute issues over night. Objective Vitals Vital Signs Date Time Temp Pulse Resp B/P Pulse Ox O2 Delivery O2 Flow Rate FiO2 12/31/16 04:00 96.5 82 19 109/64 98 12/30/16 23:51 97.0 98 18 119/60 100 12/30/16 20:45 Room Air 21 12/30/16 20:00 96 12/30/16 20:00 97.9 92 17 109/61 98 12/30/16 16:00 97.8 95 20 128/70 99 12/30/16 13:14 96.3 90 18 116/64 97 12/30/16 09:20 Room Air 12/30/16 09:20 91 I/O 12/30/16 12/30/16 12/30/16 12/31/16 12/31/16 12/31/16 07:00 15:00 23:00 07:00 15:00 23:00 Intake Total 960 ml 1920 ml 1560 ml 480 ml Output Total 550 ml 1200 ml Balance 410 ml 1920 ml 360 ml 480 ml Intake Oral 960 ml 1920 ml 1560 ml 480 ml Output Urine Total 550 ml 1200 ml # Voids 3 1 # Bowel Movements 0 0 0 Result Diagram: 12/30/16 0645 12/30/16 0645 Imaging Last Impressions Abdomen/Pelvis CT 12/28/16 0000 Signed Impressions: Service Date/Time: Wednesday, December 28, 2016 03:28 - CONCLUSION: Liver cirrhosis and stigmata of portal hypertension. Abundant ascites. Small bilateral pleural effusions and left base pneumonia. Derek Krause MD Abdomen Ultrasound 12/28/16 0000 Signed Impressions: Service Date/Time: Wednesday, December 28, 2016 06:43 - CONCLUSION: 1. Flow within the main portal vein is not confirmed with certainty which raises the possibility of portal vein thrombus. CT or MRI of the abdomen with contrast may be helpful for father evaluation of this finding. 2. Small heterogeneous nodular liver consistent with cirrhosis. 3. Ascites. 4. Splenomegaly. 5. Distended thick walled gallbladder with pericholecystic fluid and possible stone or polyp in the neck. Clinical correlation is recommended to rule out acute cholecystitis. 6. Poor visualization of the pancreas and right kidney due to shadowing bowel gas. Veto Cortez MD Chest X-Ray 12/25/162123 Signed Impressions: Service Date/Time: Sunday, December 25, 2016 21:45 - CONCLUSION: Cardiomegaly without evidence of acute cardiopulmonary process. Bakari Amado MD Objective Remarks GENERAL: This is a well-nourished, well-developed patient, in no apparent distress. CARDIOVASCULAR: Regular rate and regular rhythm without murmurs, gallops, or rubs. RESPIRATORY: Clear to auscultation. Breath sounds equal bilaterally. No wheezes , rales, or rhonchi. GASTROINTESTINAL: Abdomen soft, non-tender, distended. Normal, active bowel sounds MUSCULOSKELETAL: Extremities with bilateral pedal edema. NEURO: Alert & Oriented x4 to person, place, time, situation. Moves all ext x4 Procedures paracentesis Medications and IVs Current Medications IV Flush (NS Flush) 2 ml UNSCH PRN FLUSH FLUSH AFTER USING IV ACCESS; Start at 23:15 IV Flush (NS Flush) 2 ml BID FLUSH Last administered on 12/30/16 20:51; Start 12/26/16 at 09:00 Heparin Sodium (Porcine) (Heparin Inj) 5,000 units Q8H SQ Last administered on 12/28/16 09:23; Start 12/26/16 at 00:00; Stop 12/28/16 at 14:41; Status DC Naloxone HCl (Narcan Inj) 0.4 mg UNSCH PRN IV SEE LABEL COMMENTS; Start at 23:15 Acetaminophen (Tylenol) 650 mg Q4H PRN PO headaches/pain/ fever >101 Last administered on 12/28/16 05:54; Start 12/26/16 at 05:15 Diphenhydramine HCl (Benadryl) 25 mg ONCE ONCE PO Last administered on 05:32; Start 12/26/16 at 05:15; Stop 12/26/16 at 05:16; Status DC Furosemide (Lasix) 40 mg DAILY PO ; Start 12/26/16 at 09:00; Stop 12/26/16 at 11: 08; Status DC Mycophenolate Mofetil (Cellcept) 500 mg BID@18 PO Last administered on 05:06; Start 12/26/16 at 18:00; Stop 12/27/16 at 11:02; Status DC Nifedipine (Procardia Xl) 60 mg DAILY PO Last administered on 12/30/16 09:15; Start 12/26/16 at 09:00 Pantoprazole Sodium (Protonix) 40 mg DAILY PO ; Start 12/26/16 at 09:00; Stop 12/26/16 at 11:08; Status DC Prednisone (Deltasone) 20 mg DAILY PO ; Start 12/26/16 at 09:00; Stop 12/26/16 at 09:00; Status DC Alprazolam (Xanax) 0.125 mg Q6H PRN PO ANXIETY Last administered on 12/27/16 16 :34; Start 12/26/16 at 07:45; Stop 12/28/16 at 14:45; Status DC Miscellaneous (Pill Splitter) 1 ea UNSCH PRN OTHER SEE LABEL COMMENTS Last administered on 12/30/16 17:40; Start 12/26/16 at 08:00 Prednisone (Deltasone) 40 mg DAILY PO ; Start 12/26/16 at 09:00; Stop 12/26/16 at 11:08; Status DC Prednisone (Deltasone) 60 mg DAILY PO Last administered on 12/28/16 09:23; Start 12/27/16 at 09:00; Stop 12/28/16 at 20:05; Status DC Prednisone (Deltasone) 20 mg ONCE ONCE PO Last administered on 12/26/16 12:30 ; Start 12/26/16 at 11:15; Stop 12/26/16 at 11:16; Status DC Bumetanide (Bumex Inj) 2 mg BID@ IV PUSH Last administered on 12/28/16 09: 22; Start 12/26/16 at 18:00; Stop 12/28/16 at 11:20; Status DC Diphenhydramine HCl (Benadryl) 25 mg HS PRN PO insomnia Last administered on 23:41; Start 12/27/16 at 01:45; Stop 12/28/16 at 14:46; Status DC Mycophenolate Mofetil (Cellcept) 1,000 mg BID@18 PO Last administered on 12/28 18:21; Start 12/27/16 at 18:00; Stop 12/28/16 at 20:05; Status DC Acetaminophen/ Hydrocodone Bitart ([place]es 5-325 Mg) 1 tab Q6H PRN PO PAIN NOT RELIEVED BY TYLENOL Last administered on 12/28/16 11:37; Start 12/27/16 at 16:00 ; Stop 12/28/16 at 14:46; Status DC Albuterol Sulfate 2.5 mg 2.5 mg Q6HR NEB PRN INH SHORTNESS OF BREATH Last administered on 12/27/16 20:12; Start 12/27/16 at 16:00 Cefepime HCl/ Sodium Chloride (Maxipime Inj/NS Inj) 100 ml @ 200 mls/hr Q24H IV Last administered on 12/31/16 04:39; Start 12/28/16 at 05:00 Morphine Sulfate 2 mg 2 mg Q3H PRN IV PUSH breakthrough pain Last administered on 12/28/16 09:23; Start 12/28/16 at 05:30; Stop 12/28/16 at 14:46; Status DC Metronidazole 100 ml @ 100 mls/hr Q6H IV Last administered on 12/31/16 05:57; Start 12/28/16 at 06:00 Vancomycin HCl/ Sodium Chloride (Vancomycin Inj/ NS 500 ml Inj) 515 ml @ 257.5 mls/ hr ONCE ONCE IV Last administered on 12/28/16 08:40; Start 12/28/16 at 06: 45; Stop 12/28/16 at 08:44; Status DC Sevelamer Carbonate 800 mg 800 mg TIDAC PO Last administered on 12/30/16 17:00 ; Start 12/28/16 at 12:00 Bumetanide 100 ml @ 8 mls/hr CONTINUOUS IV Last administered on 12/28/16 15:11 ; Start 12/28/16 at 13:30; Stop 12/28/16 at 17:24; Status DC Heparin Sodium/ Dextrose (Heparin-D5W Inj) 250 ml @ 0 mls/hr TITRATE IV Last administered on 12/28/16 15:12; Start 12/28/16 at 14:45; Stop 12/28/16 at 21:51; Status DC Hydromorphone HCl (Dilaudid Pf Inj) 0.5 mg Q4H PRN IV PUSH pain 7-10 or not taking po Last administered on 12/31/16 06:02; Start 12/28/16 at 14:45 Oxycodone HCl (Roxicodone) 5 mg Q4H PRN PO pain 3-6 Last administered on 18:22; Start 12/28/16 at 14:45 Pantoprazole Sodium (Protonix Inj) 40 mg Q24H IV PUSH Last administered on 14:12; Start 12/28/16 at 15:00 Bumetanide (Bumetanide) 2 mg BID@09,18 PO Last administered on 12/30/16 17:08; Start 12/28/16 at 18:00 Mycophenolate Mofetil (Cellcept) 500 mg BID@06,18 PO Last administered on 05:57; Start 12/29/16 at 06:00 Prednisone 40 mg 40 mg DAILY PO Last administered on 12/30/16 09:15; Start 12/29 at 09:00 Heparin Sodium/ Dextrose (Heparin-D5W Inj) 250 ml @ 0 mls/hr TITRATE IV Last administered on 12/30/16 01:58; Start 12/28/16 at 22:00; Stop 12/30/16 at 12:16; Status DC Alprazolam (Xanax) 0.5 mg NOW PO Last administered on 12/28/16 23:22; Start 12/28/16 at 23:15; Stop 12/29/16 at 00:45; Status DC Ondansetron HCl (Zofran Inj) 4 mg Q6H PRN IV PUSH NAUSEA Last administered on 23:19; Start 12/29/16 at 09:30 Alprazolam (Xanax) 0.125 mg Q12HR PRN PO ANXIETY Last administered on 12/30/16 01:39; Start 12/29/16 at 13:00; Stop 12/30/16 at 07:52; Status DC Alprazolam (Xanax) 0.125 mg Q6HR PRN PO ANXIETY Last administered on 12/30/16 22:05; Start 12/30/16 at 12:00 Miscellaneous (Pill Splitter) 1 ea UNSCH PRN OTHER SEE LABEL COMMENTS; Start at 08:00 Albumin Human (Albumin 25% Inj) 12.5 gm Q12H IV Last administered on 12/30/16t 20:45; Start 12/30/16 at 20:00 A/P Assessment and Plan A/P IgA nephropathy Acute on chronic renal failure -continue prednisone and Cellcept -started on diuretic -monitor renal function -possible dialysis pending the response to diuretics Nephrology following:Dr. Mayer -- Strict I/Os Alcoholic cirrhosis Acute abdominal pain Possible SBP Trend LFTs Diagnostic paracentesis done;fluid culture negative so far. -continue antibiotic for ten days per GI -GI following. 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 d/w the RN and . Sachi Medeiros MD Dec 31, 2016 08:02
[2016-12-31 08:03] LABS: APTT (PATIENT) 29.3 SEC (24.3-30.1)
[2016-12-31 08:10] LABS: REVIEW FLAG FINAL
[2016-12-31 08:19] LABS: POTASSIUM 4.2 MEQ/L (3.5-5.1)
[2016-12-31 08:22] LABS: INDIRECT BILIRUBIN 0.4 MG/DL (0.0-0.8); TOTAL BILIRUBIN ADULT 0.6 MG/DL (0.2-1.0)
[2016-12-31] MEDS: BUMETANIDE 1 MG TAB PO SCH ×2 (09:25→18:12)
[2016-12-31] MEDS: NIFEdipine 60 MG SUSTAINED RELEASE TAB PO SCH (09:25)
[2016-12-31] MEDS: SEVELAMER CARBONATE 800 MG TAB PO SCH ×3 (09:25→17:00)
[2016-12-31] MEDS: predniSONE 20 MG TAB PO SCH (09:25)
[2016-12-31] MEDS: SODIUM CHLORIDE 0.9% FLUSH 5 ML FLUSH FLUSH SCH ×2 (09:25→20:57)
[2016-12-31] MEDS: ALBUMIN HUMAN 25% 12.5 GM/50 ML BAGP IV SCH ×2 (09:25→20:57)
[2016-12-31] MEDS ORDERED: MIDAZOLAM HCL 5 MG/5 ML VIAL ONE (10:57)
[2016-12-31] MEDS ORDERED: fentaNYL CITRATE 250 MCG/5 ML AMP ONE (10:57)
[2016-12-31] MEDS ORDERED: VANCOMYCIN HCL 1000 MG VIAL ONE (10:58)
[2016-12-31] MEDS ORDERED: LIDOCAINE 1%/EPINEPHrine 1:100,000 SOLN 20 ML VIAL ONE (11:19)
--- NOTE | 2016-12-31 11:42 | PD.RAD ---
Post Procedure Progress Note Pre Procedure Diagnosis: (1) Acute renal failure Post Procedure Diagnosis: (1) Acute renal failure Procedure Date: Dec 31, 2016 Supervising Radiologist: Bakari Amado Proceduralist/Assist: Jagruti Vasquez RT(R), Alma Rosa Hernandez RT(R)(CV) Anesthesia: Local, Conscious Sedation Plan of Activity Patient to Unit: Nursing Unit Patient Condition: Good See PACS Report for procedural detail/treatment Central Venous Access Device Procedure 1 Right Internal Jugular Hemodialysis Catheter Tunneled Placement dual lumen [place]ian: 15 Bakari Amado MD Dec 31, 2016 11:42
--- NOTE | 2016-12-31 11:43 | HHI.NPPN ---
Subjective Complaints: Obesity General Problems: Edema Renal Failure: Chronic, Acute Interval History Renal function is worse. He remains fluid overloaded. (Helen Gaspar) Review of Systems General Constitutional: Fatigue (Helen Gaspar) Cardiovascular Cardiac: Edema (Helen Gaspar) Objective Data Data 12/30/16 12/31/16 19:00 07:00 Intake Total 2520 ml 1440 ml Output Total 800 ml 400 ml Balance 1720 ml 1040 ml Intake Oral 2520 ml 1440 ml Output Urine Total 800 ml 400 ml # Voids 3 1 # Bowel Movements 0 Vital Signs Date Time Temp Pulse Resp B/P Pulse Ox O2 Delivery O2 Flow Rate FiO2 12/31/16 07:50 96.0 95 20 115/70 98 12/31/16 04:00 96.5 82 19 109/64 98 12/30/16 23:51 97.0 98 18 119/60 100 12/30/16 20:45 Room Air 21 12/30/16 20:00 96 12/30/16 20:00 97.9 92 17 109/61 98 12/30/16 16:00 97.8 95 20 128/70 99 12/30/16 13:14 96.3 90 18 116/64 97 (Helen Gaspar) -: 12/31/16 0620 12/31/16 0620 Physical Exam General Appearance: Well Developed, Well Nourished, No Acute Distress, Comfortable, Obese (Helen Gaspar) Throat Throat Exam: Oral Mucosa Gary & Moist (Helen Gaspar) Pulmonary Resp Exam: Breath Sounds Equal, No Distress, Decreased Bases (Helen Gaspar) Cardiology CV Exam: Regular, Normal Sinus Rhythm (Helen Gaspar) Gastrointestinal/Abdomen GI Exam: Soft, Non-Tender (Helen Gaspar) Musculoskeletal MS Exam: Joints Intact, Normal Tone (Helen Gaspar) Integumentary Skin Exam: Clear, Warm, Dry, Intact (Helen Gaspar) Extremeties Extremities Exam: Pedal Pulses Palpable, Moderate Edema, Pitting Edema, Dependent Edema (Helen Gaspar) Neurologic Neuro Exam: Alert, Awake, Oriented, Speech Clear, Moving All Extremities ( Helen Gaspar) Psychiatric Psych Exam: Appropriate Responses (Helen Gaspar) Assessment/Plan Discussed Condition With: Patient Assessment Summary: SAL/Acute Renal Failure, Fluid/Volume Overload, Hypertension Problem List: (1) Acute renal failure Plan: in a pt with resolving renal failure who was dialysis dependent until due to Iga nephropathy with RPGN he now states he did take the CellCept at discharge last week his renal function has declined, he may have progressed to ESRD he is making some urine, but creatinine is higher we discussed restarting dialysis, this will be lifelong, he understands stop the cellcept, continue prednisone at 40 mg/day IR consulted for permcath placement HD later today, orders entered consult vascular (Dr. Hines, aware) for AVF placement renal panel in am (2) RPGN (rapidly progressive glomerulonephritis) Plan: see above (3) IgA nephropathy determined by renal biopsy Plan: change immunosuppressive medications as above monitor renal function management as above likely has progressed to ESRD (4) Thrombocytopenia Plan: improving, it was thought cirrhosis may have been the etiology no active bleeding (5) Leukocytosis Plan: GI signed off on Abx for 10 days monitor clinically , carefully monitor drug levels when appropriate (Helen Gaspar) Plan patient was seen and examined. Agree with above assessment and plan. Discussed with Dr. Hines who will be consulted for AVF placement. PermCath placement. Stop CellCept. (Fredo Mayer MD) Problem Qualifiers (1) Acute renal failure: Qualified Code: N17.9 - Acute renal failure, unspecified acute renal failure type Helen Gaspar Dec 31, 2016 11:43 Fredo Mayer MD Dec 31, 2016 15:59
[2016-12-31] MEDS ORDERED: SODIUM CHLOR 0.9% 1000 ML INJ 1,000 ML IV PRN ×2 (11:44)
[2016-12-31] MEDS ORDERED: MANNITOL 12.5 GM/50 ML VIAL IV PRN (11:45)
[2016-12-31] MEDS ORDERED: cloNIDine HCL 0.1 MG TAB PO PRN (11:45)
[2016-12-31] MEDS ORDERED: ALBUMIN HUMAN 25% 25 GM/100 ML BAGP IV PRN (11:45)
[2016-12-31] MEDS ORDERED: diphenhydrAMINE HCL 25 MG CAP PO PRN (11:45)
[2016-12-31] MEDS ORDERED: NITROGLYCERIN 0.4 MG SL 25 TABS/BTL SL PRN (11:45)
[2016-12-31] MEDS ORDERED: SODIUM CHLORIDE 0.9% FLUSH 5 ML FLUSH IVF PRN (11:45)
[2016-12-31] MEDS ORDERED: HEPARIN SODIUM - IV 10,000 UNITS/10 ML VIAL IVF PRN (11:45)
[2016-12-31] MEDS ORDERED: ACETAMINOPHEN 325 MG TAB PO PRN (11:45)
[2016-12-31] MEDS ORDERED: GELATIN 12 MM/7 MM FOAM TOP PRN (11:45)
--- NOTE | 2016-12-31 12:50 | RADRPT ---
EXAM DATE/TIME: 12/31/2016 11:21 [facility] COMPARISON: No previous studies available for comparison. INDICATIONS : Patient with renal failure in need of permcath placement for dialysis. MEDICAL HISTORY : Glomerulonephritis HTN Anemia SURGICAL HISTORY : Ortho surgery on hands and feet ENCOUNTER: Subsequent ACUITY: 2 days PAIN SCORE: 0/10 FLUORO TIME: 0.6 minutes IMAGE SERIES: 1 SEDATION TIME: 15 minutes ACCESS: Right internal jugular vein SEDATION: 1.) 2 mg midazolam (Versed) IV 2.) 100 mcg fentanyl (Sublimaze) IV Prophylactic antibiotics were administered with appropriate pre-procedure timing. Vancomycin within 2 hours of procedure, Ancef (or alternative) within 1 hour of procedure. DEVICE: 1. 15 [place] dual lumen 27 cm Permacath PROCEDURE : 1. Ultrasound-guided venipuncture. 2. PermaCath placement. 3. Conscious sedation with continuous EKG and oximetry monitoring. The risks, benefits and alternatives to the procedure were explained and verbal and written consent w as obtained. The site was prepped in sterile fashion. Full sterile technique was used, including ca p, mask, sterile gloves and gown and a large sterile sheet. Hand hygiene and 2% chlorhexidine and/or betadine/alcohol prep was utilized per protocol for cutaneous antisepsis. The skin and subcutaneous tissues were infiltrated with local anesthetic solution. With ultrasound and fluoroscopic guidance a dermatotomy was created over the prescribed vein. A micr opuncture set was used to access the targeted vein and serial dilatation was performed to accept the prescribed length catheter. A subcutaneous tunnel was created in a retrograde fashion the catheter w as pulled through the tunnel. The catheter was flushed and assembled and locked with heparin. The c atheter was sutured in place. Conscious sedation was performed with the prescribed dosages and duration as above in the presence of an independent trained radiology nurse to assist in the monitoring of the patient. EKG and oximetry remained stable throughout the procedure. The patient tolerated the procedure well and there were n o complications. The patient was sent to post anesthesia recovery in stable condition. CONCLUSION: Uncomplicated PermaCath placement as above. Bakari Amado MD on December 31, 2016 at 12:49 Board Certified Radiologist. This report was verified electronically.
[2016-12-31] MEDS: PANTOPRAZOLE SODIUM 40 MG VIAL IV PUSH SCH (15:00)
[2016-12-31] MEDS: EPOETIN ALFA 10,000 UNITS/ML VIAL IV PRN (17:01)
[2016-12-31] MEDS: GENTAMICIN SULFATE (DIALYSIS USE ONLY) 20 MG/2 ML VIAL IV PRN (17:02)
[2016-12-31] MEDS: HEPARIN SODIUM - IV 10,000 UNITS/10 ML VIAL PRN (17:02)
[2016-12-31] MEDS: ALPRAZolam 0.25 MG TAB PO PRN (22:45)
[2017-01-01] VITALS (8 sets, daily range): BP systolic 91–129; BP diastolic 52–69; PULSE 87–97; RESP 16–18; TEMP 96.2–98.2; O2SAT 94–100
[2017-01-01] MEDS: HYDROmorphone HCL PF 1 MG/ML VIAL IV PUSH PRN ×4 (02:55→21:59)
[2017-01-01] MEDS: CEFEPIME INJ 1,000 MG in SODIUM CHLORIDE 0.9% INJ 100 ML IV SCH (05:22)
[2017-01-01] MEDS: MYCOPHENOLATE MOFETIL 500 MG TAB PO SCH (05:22)
[2017-01-01] MEDS: metroNIDAZOLE 500 MG INJ 100 ML IV SCH (06:33)
[2017-01-01 07:25] LABS: APTT (PATIENT) 26.6 SEC (24.3-30.1)
[2017-01-01 07:29] LABS: HEMATOCRIT 27.2 % (39.0-51.0); MEAN CELL VOLUME 91.7 FL (80.0-100.0); MEAN CORPUSCULAR HEMOGLOBIN 31.1 PG (27.0-34.0); MEAN CORPUSCULAR HGB CONC 33.9 % (32.0-36.0); PLATELET COUNT 103 TH/MM3 (150-450); RED BLOOD COUNT 2.97 MIL/MM3 (4.50-5.90); RED CELL DISTRIBUTION WIDTH 14.3 % (11.6-17.2); WHITE BLOOD COUNT 16.5 TH/MM3 (4.0-11.0)
[2017-01-01 08:00] LABS: REVIEW FLAG FINAL
--- NOTE | 2017-01-01 08:09 | HHI.PR ---
Subjective Remarks resting comfortably with no distress. abdominal pain is better. afebrile. no other complaints. d/w the RN. Objective Vitals Vital Signs Date Time Temp Pulse Resp B/P Pulse Ox O2 Delivery O2 Flow Rate FiO2 01/01/17 04:00 96.6 96 18 120/64 97 01/01/17 00:00 96.2 91 18 119/68 100 12/31/16 22:42 92 12/31/16 20:00 96.2 73 18 109/61 96 12/31/16 15:00 96.1 87 20 118/69 98 12/31/16 12:40 89 18 129/65 96 12/31/16 12:10 95 16 117/58 94 12/31/16 11:55 97.5 96 20 121/53 94 12/31/16 10:00 88 I/O 12/31/16 12/31/16 12/31/16 01/01/17 01/01/17 01/01/17 07:00 15:00 23:00 07:00 15:00 23:00 Intake Total 480 ml 720 ml 160 ml 110 ml Output Total 500 ml 2000 ml Balance 480 ml 220 ml -1840 ml 110 ml Intake Oral 480 ml 720 ml IV Total 160 ml 110 ml Output Urine Total 500 ml Hemodialysis 2000 ml # Voids 1 # Bowel Movements 0 0 Result Diagram: 01/01/17 0600 12/31/16 0620 Imaging Last Impressions Catheter Placement X-Ray 12/31/16 0951 Signed Impressions: Service Date/Time: Saturday, December 31, 2016 11:21 - CONCLUSION: Uncomplicated PermaCath placement as above. Bakari Amado MD Abdomen/Pelvis CT 12/28/16 0000 Signed Impressions: Service Date/Time: Wednesday, December 28, 2016 03:28 - CONCLUSION: Liver cirrhosis and stigmata of portal hypertension. Abundant ascites. Small bilateral pleural effusions and left base pneumonia. Derek Krause MD Abdomen Ultrasound 12/28/16 0000 Signed Impressions: Service Date/Time: Wednesday, December 28, 2016 06:43 - CONCLUSION: 1. Flow within the main portal vein is not confirmed with certainty which raises the possibility of portal vein thrombus. CT or MRI of the abdomen with contrast may be helpful for father evaluation of this finding. 2. Small heterogeneous nodular liver consistent with cirrhosis. 3. Ascites. 4. Splenomegaly. 5. Distended thick walled gallbladder with pericholecystic fluid and possible stone or polyp in the neck. Clinical correlation is recommended to rule out acute cholecystitis. 6. Poor visualization of the pancreas and right kidney due to shadowing bowel gas. Veto Cortez MD Chest X-Ray [id number]/[id number] Signed Impressions: Service Date/Time: Sunday, December 25, 2016 21:45 - CONCLUSION: Cardiomegaly without evidence of acute cardiopulmonary process. Bakari Amado MD Objective Remarks GENERAL: This is a well-nourished, well-developed patient, in no apparent distress. CARDIOVASCULAR: Regular rate and regular rhythm without murmurs, gallops, or rubs. RESPIRATORY: Clear to auscultation. Breath sounds equal bilaterally. No wheezes , rales, or rhonchi. GASTROINTESTINAL: Abdomen soft, non-tender, distended. Normal, active bowel sounds MUSCULOSKELETAL: Extremities with bilateral pedal edema. NEURO: Alert & Oriented x4 to person, place, time, situation. Moves all ext x4 Procedures paracentesis permacath placement Medications and IVs Current Medications IV Flush (NS Flush) 2 ml UNSCH PRN FLUSH FLUSH AFTER USING IV ACCESS; Start at 23:15 IV Flush (NS Flush) 2 ml BID FLUSH Last administered on 12/31/16 20:57; Start 12/26/16 at 09:00 Heparin Sodium (Porcine) (Heparin Inj) 5,000 units Q8H SQ Last administered on 12/28/16 09:23; Start 12/26/16 at 00:00; Stop 12/28/16 at 14:41; Status DC Naloxone HCl (Narcan Inj) 0.4 mg UNSCH PRN IV SEE LABEL COMMENTS; Start at 23:15 Acetaminophen (Tylenol) 650 mg Q4H PRN PO headaches/pain/ fever >101 Last administered on 12/28/16 05:54; Start 12/26/16 at 05:15 Diphenhydramine HCl (Benadryl) 25 mg ONCE ONCE PO Last administered on 05:32; Start 12/26/16 at 05:15; Stop 12/26/16 at 05:16; Status DC Furosemide (Lasix) 40 mg DAILY PO ; Start 12/26/16 at 09:00; Stop 12/26/16 at 11: 08; Status DC Mycophenolate Mofetil (Cellcept) 500 mg BID@18 PO Last administered on 05:06; Start 12/26/16 at 18:00; Stop 12/27/16 at 11:02; Status DC Nifedipine (Procardia Xl) 60 mg DAILY PO Last administered on 12/31/16 09:25; Start 12/26/16 at 09:00 Pantoprazole Sodium (Protonix) 40 mg DAILY PO ; Start 12/26/16 at 09:00; Stop 12/26/16 at 11:08; Status DC Prednisone (Deltasone) 20 mg DAILY PO ; Start 12/26/16 at 09:00; Stop 12/26/16 at 09:00; Status DC Alprazolam (Xanax) 0.125 mg Q6H PRN PO ANXIETY Last administered on 12/27/16 16 :34; Start 12/26/16 at 07:45; Stop 12/28/16 at 14:45; Status DC Miscellaneous (Pill Splitter) 1 ea UNSCH PRN OTHER SEE LABEL COMMENTS Last administered on 12/30/16 17:40; Start 12/26/16 at 08:00 Prednisone (Deltasone) 40 mg DAILY PO ; Start 12/26/16 at 09:00; Stop 12/26/16 at 11:08; Status DC Prednisone (Deltasone) 60 mg DAILY PO Last administered on 12/28/16 09:23; Start 12/27/16 at 09:00; Stop 12/28/16 at 20:05; Status DC Prednisone (Deltasone) 20 mg ONCE ONCE PO Last administered on 12/26/16 12:30 ; Start 12/26/16 at 11:15; Stop 12/26/16 at 11:16; Status DC Bumetanide (Bumex Inj) 2 mg BID@18 IV PUSH Last administered on 12/28/16 09: 22; Start 12/26/16 at 18:00; Stop 12/28/16 at 11:20; Status DC Diphenhydramine HCl (Benadryl) 25 mg HS PRN PO insomnia Last administered on 23:41; Start 12/27/16 at 01:45; Stop 12/28/16 at 14:46; Status DC Mycophenolate Mofetil (Cellcept) 1,000 mg BID@06,18 PO Last administered on 12/28 18:21; Start 12/27/16 at 18:00; Stop 12/28/16 at 20:05; Status DC Acetaminophen/ Hydrocodone Bitart ([place] 5-325 Mg) 1 tab Q6H PRN PO PAIN NOT RELIEVED BY TYLENOL Last administered on 12/28/16 11:37; Start 12/27/16 at 16:00 ; Stop 12/28/16 at 14:46; Status DC Albuterol Sulfate 2.5 mg 2.5 mg Q6HR NEB PRN INH SHORTNESS OF BREATH Last administered on 12/27/16 20:12; Start 12/27/16 at 16:00 Cefepime HCl/ Sodium Chloride (Maxipime Inj/NS Inj) 100 ml @ 200 mls/hr Q24H IV Last administered on 01/01/17 05:22; Start 12/28/16 at 05:00 Morphine Sulfate 2 mg 2 mg Q3H PRN IV PUSH breakthrough pain Last administered on 12/28/16 09:23; Start 12/28/16 at 05:30; Stop 12/28/16 at 14:46; Status DC Metronidazole 100 ml @ 100 mls/hr Q6H IV Last administered on 01/01/17 06:33; Start 12/28/16 at 06:00 Vancomycin HCl/ Sodium Chloride (Vancomycin Inj/ NS 500 ml Inj) 515 ml @ 257.5 mls/ hr ONCE ONCE IV Last administered on 12/28/16 08:40; Start 12/28/16 at 06: 45; Stop 12/28/16 at 08:44; Status DC Sevelamer Carbonate 800 mg 800 mg TIDAC PO Last administered on 12/31/16 09:25 ; Start 12/28/16 at 12:00 Bumetanide 100 ml @ 8 mls/hr CONTINUOUS IV Last administered on 12/28/16 15:11 ; Start 12/28/16 at 13:30; Stop 12/28/16 at 17:24; Status DC Heparin Sodium/ Dextrose (Heparin-D5W Inj) 250 ml @ 0 mls/hr TITRATE IV Last administered on 12/28/16 15:12; Start 12/28/16 at 14:45; Stop 12/28/16 at 21:51; Status DC Hydromorphone HCl (Dilaudid Pf Inj) 0.5 mg Q4H PRN IV PUSH pain 7-10 or not taking po Last administered on 01/01/17 06:39; Start 12/28/16 at 14:45 Oxycodone HCl (Roxicodone) 5 mg Q4H PRN PO pain 3-6 Last administered on 18:22; Start 12/28/16 at 14:45 Pantoprazole Sodium (Protonix Inj) 40 mg Q24H IV PUSH Last administered on 15:00; Start 12/28/16 at 15:00 Bumetanide (Bumetanide) 2 mg BID@09,18 PO Last administered on 12/31/16 18:12; Start 12/28/16 at 18:00 Mycophenolate Mofetil (Cellcept) 500 mg BID@06,18 PO Last administered on 05:22; Start 12/29/16 at 06:00 Prednisone 40 mg 40 mg DAILY PO Last administered on 12/31/16 09:25; Start 12/29 at 09:00 Heparin Sodium/ Dextrose (Heparin-D5W Inj) 250 ml @ 0 mls/hr TITRATE IV Last administered on 12/30/16 01:58; Start 12/28/16 at 22:00; Stop 12/30/16 at 12:16; Status DC Alprazolam (Xanax) 0.5 mg NOW PO Last administered on 12/28/16 23:22; Start 12/28/16 at 23:15; Stop 12/29/16 at 00:45; Status DC Ondansetron HCl (Zofran Inj) 4 mg Q6H PRN IV PUSH NAUSEA Last administered on 23:19; Start 12/29/16 at 09:30 Alprazolam (Xanax) 0.125 mg Q12HR PRN PO ANXIETY Last administered on 12/30/16 01:39; Start 12/29/16 at 13:00; Stop 12/30/16 at 07:52; Status DC Alprazolam (Xanax) 0.125 mg Q6HR PRN PO ANXIETY Last administered on 12/31/16 22:45; Start 12/30/16 at 12:00 Miscellaneous (Pill Splitter) 1 ea UNSCH PRN OTHER SEE LABEL COMMENTS; Start at 08:00 Albumin Human (Albumin 25% Inj) 12.5 gm Q12H IV Last administered on 12/31/16 20:57; Start 12/30/16 at 20:00 Midazolam HCl (Versed Inj) 5 mg STK-MED ONCE .ROUTE Last administered on 10:57; Start 12/31/16 at 10:57; Stop 12/31/16 at 10:58; Status DC Fentanyl Citrate (fentaNYL INJ) 250 mcg STK-MED ONCE .ROUTE Last administered on 12/31/16 10:57; Start 12/31/16 at 10:57; Stop 12/31/16 at 10:58; Status DC Vancomycin HCl (Vancomycin Inj) 1,000 mg STK-MED ONCE .ROUTE Last administered on 12/31/16 10:58; Start 12/31/16 at 10:58; Stop 12/31/16 at 10:59; Status DC Heparin Sodium (Porcine) (*HEPARIN INJ Periprocedural ONLY) 10,000 units STK- MED ONCE .ROUTE Last administered on 12/31/16 11:40; Start 12/31/16 at 11:19; Stop 12/31/16 at 11:20; Status DC Lidocaine/ Epinephrine 20 ml 20 ml STK-MED ONCE .ROUTE Last administered on 12/31 11:25; Start 12/31/16 at 11:19; Stop 12/31/16 at 11:20; Status DC Sodium Chloride (NS 1000 ml Inj) 1,000 ml @ 0 mls/hr Q0M PRN IV For Prime & Rinse Back Last administered on 12/31/16 17:02; Start 12/31/16 at 11:44 Heparin Sodium (Porcine) 8000 units 8,000 units UNSCH PRN IVF WITH DIALYSIS; Start 12/31/16 at 11:45 Sodium Chloride 1,000 ml @ 200 mls/hr Q5H PRN IV WITH DIALYSIS; Start 12/31/16 at 11:44 Sodium Chloride (NS 1000 ml Inj) 1,000 ml @ 0 mls/hr Q0M PRN IV WITH DIALYSIS Last administered on 12/31/16 17:03; Start 12/31/16 at 11:44 Mannitol (Mannitol Inj) 12.5 gm UNSCH PRN IV WITH DIALYSIS; Start 12/31/16 at 11 :45 Albumin Human (Albumin 25% Inj) 25 gm UNSCH PRN IV WITH DIALYSIS; Start at 11:45 IV Flush (NS Flush) 5 ml UNSCH PRN IVF WITH DIALYSIS Last administered on 17:01; Start 12/31/16 at 11:45 Heparin Sodium (Porcine) (Heparin Inj) UNSCH PRN .XX WITH DIALYSIS Last administered on 12/31/16 17:02; Start 12/31/16 at 11:45 Gentamicin Sulfate (Gentamicin (Dialysis) Inj) 20 mg UNSCH PRN IV WITH DIALYSIS Last administered on 12/31/16 17:02; Start 12/31/16 at 11:45 Ondansetron HCl (Zofran Inj) 4 mg UNSCH PRN IV WITH DIALYSIS; Start 12/31/16 at 11:45 Acetaminophen (Tylenol) 650 mg UNSCH PRN PO for headach, pain, temp > 101F; Start 12/31/16 at 11:45 Diphenhydramine HCl (Benadryl) 25 mg UNSCH PRN PO for hives/itching/anaphylaxis ; Start 12/31/16 at 11:45 Nitroglycerin (Nitrostat Sl) 0.4 mg UNSCH PRN SL CHEST PAIN; Start 12/31/16 at 11:45 Clonidine (Catapres) 0.1 mg UNSCH PRN PO for BP > 180/100 X 2 readings; Start 12/31/16 at 11:45 Gelatin (Gelfoam 12 Mm/7 Mm Top) 1 foam UNSCH PRN TOP SEE LABEL COMMENTS; Start 12/31/16 at 11:45 Epoetin [place] (Epogen Inj) 10,000 units UNSCH PRN IV WITH DIALYSIS Last administered on 12/31/16 17:01; Start 12/31/16 at 11:45 A/P Assessment and Plan A/P IgA nephropathy Acute on chronic renal failure -continue prednisone. -started on HD- s/p perma-cath placement -vascular surgery consulted for AV graft placement -monitor renal function Nephrology following:Dr. Mayer Alcoholic cirrhosis Acute abdominal pain Possible SBP Trend LFTs Diagnostic paracentesis done;fluid culture negative so far. -continue antibiotic for ten days per GI -GI following. 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 Sachi Medeiros MD Jan 01, 2017 08:09
[2017-01-01] MEDS: ALBUMIN HUMAN 25% 12.5 GM/50 ML BAGP IV SCH ×2 (08:15→21:58)
[2017-01-01] MEDS: BUMETANIDE 1 MG TAB PO SCH ×2 (08:15→18:00)
[2017-01-01] MEDS: predniSONE 20 MG TAB PO SCH (08:15)
[2017-01-01 08:16] LABS: INDIRECT BILIRUBIN 0.3 MG/DL (0.0-0.8); POTASSIUM 4.2 MEQ/L (3.5-5.1); TOTAL BILIRUBIN ADULT 0.6 MG/DL (0.2-1.0)
[2017-01-01] MEDS: SEVELAMER CARBONATE 800 MG TAB PO SCH ×3 (08:16→17:00)
[2017-01-01] MEDS: SODIUM CHLORIDE 0.9% FLUSH 5 ML FLUSH FLUSH SCH ×2 (08:16→21:58)
[2017-01-01 08:17] LABS: BICARBONATE 19.3 MEQ/L (21.0-32.0)
[2017-01-01] MEDS: PANTOPRAZOLE SOD 40 MG DELAYED RELEASE TAB PO SCH (08:18)
[2017-01-01] MEDS: NIFEdipine 60 MG SUSTAINED RELEASE TAB PO SCH (08:22)
[2017-01-01] MEDS: ALPRAZolam 0.25 MG TAB PO PRN ×2 (09:53→21:59)
--- NOTE | 2017-01-01 11:44 | PD.VS.CON ---
History of Present Illness Chief Complaint: Mr. Prince is a 46 yo pleasant male who was diagnosed with acute kidney failure Pt c/o swelling of his legs has been getting worse Pt [facility] HD presently via R chest catheter (Permacath) Pt is RIGHT handed with no prior history of access attempts Consult Requested by: History of Present Illness Patient is a 46 y/o male, who was diagnosed with glomerulonephritis last admission, presented back to ER with generalized weakness and worsening swelling of the legs. Pt c/o over the past two weeks he was having difficulty voiding. He reported that the swelling of his legs were worsening and he was experiencing generalized weakness. Past/Family/Social History Past Medical History Past Medical History glomerulonephritis hypertension anemia Past Surgical History Orthopedic Surgeries on hands and feet. Social History Denies Smoking Recovering Alcoholic- 16M Family History Unknown Home Medications Active Scripts Pantoprazole 40 Mg Tab40 Mg PO DAILY #30 TAB Prov:Marlyn Mcwilliams MD 12/22/16 Furosemide (Lasix)40 Mg Tab40 Mg PO DAILY #30 TAB Ref 0 Prov:Marlyn Mcwilliams MD 12/22/16 Mycophenolate (Cellcept)500 Mg [id number] Mg PO BID@, #60 TAB Prov:Marlyn Mcwilliams MD 12/22/16 Prednisone 20 Mg Tab20 Mg PO DAILY #30 TAB Prov:Marlyn Mcwilliams MD 12/22/16 Nifedipine ER 24 HR 60 Mg Tab60 Mg PO DAILY #30 TAB Prov:Marlyn Mcwilliams MD 12/22/16 Coded Allergies: Bactrim (Verified Allergy, Severe, 12/25/16) Review of Systems Bilat LE Swelling Physical Exam Vitals/I&O Date Time Temp Pulse Resp B/P Pulse Ox O2 Delivery O2 Flow Rate FiO2 01/01/17 10:31 91 01/01/17 08:20 87 100/52 01/01/17 08:00 97.4 92 16 91/66 98 01/01/17 04:00 96.6 96 18 120/64 97 01/01/17 00:00 96.2 91 18 119/68 100 12/31/16 22:42 92 12/31/16 20:00 96.2 73 18 109/61 96 12/31/16 15:00 96.1 87 20 118/69 98 12/31/16 12:40 89 18 129/65 96 12/31/16 12:10 95 16 117/58 94 12/31/16 11:55 97.5 96 20 121/53 94 01/01/17 01/01/17 01/01/17 07:00 15:00 23:00 Intake Total 110 ml Output Total 700 ml Balance 110 ml -700 ml Neuro: CN 2-12 Intact Neck: Supple, No JVD distention noted Heart: RRR, + S1, S2 Lungs: Clear Bilat Abdomen: soft and Non-tender Vascular: Bilat Palpable Radial pulses 2+/strong Palpable DP bilat Extremities: Bilat LE with 3+ pitting edema Laboratory Tests Test 01/01/17 06:00 White Blood Count 16.5 Red Blood Count 2.97 Hemoglobin 9.2 Hematocrit 27.2 Mean Corpuscular Volume 91.7 Mean Corpuscular Hemoglobin 31.1 Mean Corpuscular Hemoglobin 33.9 Concent Red Cell Distribution Width 14.3 Platelet Count 103 Mean Platelet Volume 7.8 Prothrombin Time 11.0 Prothromb Time International 1.0 Ratio Activated Partial 26.6 Thromboplast Time Sodium Level 135 Potassium Level 4.2 Chloride Level 97 Carbon Dioxide Level 19.3 Anion Gap 19 Blood Urea Nitrogen 116 Creatinine 4.01 Estimat Glomerular Filtration 16 Rate Random Glucose 113 Calcium Level 7.9 Total Bilirubin 0.6 Direct Bilirubin 0.3 Indirect Bilirubin 0.3 Aspartate Amino Transf 29 (AST/SGOT) Alanine Aminotransferase 29 (ALT/SGPT) Alkaline Phosphatase 86 Total Protein 4.5 Albumin 2.6 Date/Time Procedure Status Source Growth 12/29/16 23:15 Urine Culture - Final Complete Urine Clean Catch <10,000 CFU/ML GRAM POSITIVE TIFFANY 12/28/16 16:15 Gram Stain - Final Complete Fluid Peritoneal Fluid 12/28/16 16:15 Body Fluid Culture - Final Complete Fluid Peritoneal Fluid NO GROWTH IN 72 HRS.--AEROBICALLY OR ... 12/28/16 06:35 Aerobic Blood Culture - Preliminary Resulted Blood Peripheral NO GROWTH IN 3 DAYS 12/28/16 06:35 Anaerobic Blood Culture - Preliminary Resulted Blood Peripheral NO GROWTH IN 3 DAYS Last 48 hours Impressions Catheter Placement X-Ray 12/31/16 0951 Signed Impressions: Service Date/Time: Saturday, December 31, 2016 11:21 - CONCLUSION: Uncomplicated PermaCath placement as above. Bakari Amado MD Assessment and Plan Assessment: (1) Renal failure Status: Acute Plan Plan is for Dr. Hines to place a L BC AVF Informed pt to Save LEFT arm for LEFT BRACHIOCEPHALIC No B/P or lab draws to left arm Crissy OLMEDO [facility] [phone] Crissy Ledbetter Jan 01, 2017 11:44
--- NOTE | 2017-01-01 11:51 | HHI.NPPN ---
Subjective Complaints: Obesity General Problems: Edema Renal Failure: Chronic, Acute Interval History Lying in bed. He is demonstrating fluid overload. He did have dialysis yesterday. (Helen Gaspar) Review of Systems General Constitutional: Fatigue (Helen Gaspar) Cardiovascular Cardiac: Edema (Helen Gaspar) Objective Data Data 12/31/16 01/01/17 19:00 07:00 Intake Total 720 ml 270 ml Output Total 2500 ml Balance -1780 ml 270 ml Intake Oral 720 ml IV Total 270 ml Output Urine Total 500 ml Hemodialysis 2000 ml # Bowel Movements 0 Vital Signs Date Time Temp Pulse Resp B/P Pulse Ox O2 Delivery O2 Flow Rate FiO2 01/01/17 10:31 91 01/01/17 08:20 87 100/52 01/01/17 08:00 97.4 92 16 91/66 98 01/01/17 04:00 96.6 96 18 120/64 97 01/01/17 00:00 96.2 91 18 119/68 100 12/31/16 22:42 92 12/31/16 20:00 96.2 73 18 109/61 96 12/31/16 15:00 96.1 87 20 118/69 98 12/31/16 12:40 89 18 129/65 96 12/31/16 12:10 95 16 117/58 94 12/31/16 11:55 97.5 96 20 121/53 94 (Helen Gaspar) -: 01/01/17 0600 01/01/17 0600 Imaging Last 72 hours Impressions Catheter Placement X-Ray 12/31/16 0951 Signed Impressions: Service Date/Time: Saturday, December 31, 2016 11:21 - CONCLUSION: Uncomplicated PermaCath placement as above. Bakari Amado MD Tubes & Lines: Perma-Cath (Helen Gaspar) Physical Exam General Appearance: Well Developed, Well Nourished, No Acute Distress, Comfortable, Obese (Helen Gaspar) Throat Throat Exam: Oral Mucosa [place] & Moist (Helen Gaspar) Pulmonary Resp Exam: Breath Sounds Equal, No Distress, Decreased Bases (Helen Gaspar) Cardiology CV Exam: Regular, Normal Sinus Rhythm (Helen Gaspar) Gastrointestinal/Abdomen GI Exam: Soft, Non-Tender (Helen Gaspar) Musculoskeletal MS Exam: Joints Intact, Normal Tone (Helen Gaspar) Integumentary Skin Exam: Clear, Warm, Dry, Intact (Helen Gaspar) Extremeties Extremities Exam: Pedal Pulses Palpable, Moderate Edema, Pitting Edema, Dependent Edema (Helen Gaspar) Neurologic Neuro Exam: Alert, Awake, Oriented, Speech Clear, Moving All Extremities ( Helen Gaspar) Psychiatric Psych Exam: Appropriate Responses (Helen Gaspar) Assessment/Plan Discussed Condition With: Patient Assessment Summary: SAL/Acute Renal Failure, Fluid/Volume Overload, Hypertension Problem List: (1) Acute renal failure Plan: 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 Hines, vascular, following for AVF placement BP borderline low, Nifedipine was stopped renal panel in am he is having insurance issues, will be admitted until able to be in transitional HD program goal is to go to [facility] when approved (2) RPGN (rapidly progressive glomerulonephritis) Plan: see above (3) IgA nephropathy determined by renal biopsy Plan: change immunosuppressive medications as above monitor renal function management as above he has progressed to ESRD (4) Thrombocytopenia Plan: improving, it was thought cirrhosis may have been the etiology no active bleeding (5) Leukocytosis Plan: GI signed off on Abx for 10 days total AVF surgery after infection clears monitor clinically , carefully monitor drug levels when appropriate (Helen Gaspar) Plan patient was seen and examined. Taper down prednisone. CellCept stopped. He has reached ESRD. Needs outpatient dialysis arrangements. Vascular surgery consulted for AVF placement. (Fredo Mayer MD) Problem Qualifiers (1) Acute renal failure: Qualified Code: N17.9 - Acute renal failure, unspecified acute renal failure type Helen Gaspar Jan 01, 2017 11:51 Fredo Mayer MD Jan 01, 2017 16:33
[2017-01-01] MEDS: HEPARIN SODIUM - IV 10,000 UNITS/10 ML VIAL PRN (18:18)
[2017-01-01] MEDS: GENTAMICIN SULFATE (DIALYSIS USE ONLY) 20 MG/2 ML VIAL IV PRN (18:18)
[2017-01-01] MEDS: ONDANSETRON HCL 4 MG/2 ML VIAL IV PUSH PRN (22:09)
[2017-01-02] VITALS (9 sets, daily range): BP systolic 109–134; BP diastolic 64–70; PULSE 86–96; RESP 16–18; TEMP 96.8–97.6; O2SAT 95–98
[2017-01-02] MEDS: HYDROmorphone HCL PF 1 MG/ML VIAL IV PUSH PRN ×4 (02:05→21:25)
[2017-01-02] MEDS: ALPRAZolam 0.25 MG TAB PO PRN ×2 (04:06→20:09)
[2017-01-02] MEDS: CEFEPIME INJ 1,000 MG in SODIUM CHLORIDE 0.9% INJ 100 ML IV SCH (05:38)
--- NOTE | 2017-01-02 06:11 | PD.VS.PN ---
Subjective Subjective/Hospital Course Pt seen yesterday in HD - see consult note from service New onset HD needs. Pre-operative imaging suggests best configuration is L BC AVF in this RIGHT handed male. Discussed with patient and provided information re: AVF. Objective Vitals/I&O Date Time Temp Pulse Resp B/P Pulse Ox O2 Delivery O2 Flow Rate FiO2 01/02/17 04:00 96.8 94 17 116/70 98 01/02/17 00:34 98 01/02/17 00:00 97.6 93 18 125/66 97 01/01/17 18:45 98.2 97 16 129/69 98 01/01/17 12:00 96.7 91 16 114/61 97 01/01/17 10:31 91 01/01/17 08:44 94 21 01/01/17 08:20 87 100/52 01/01/17 08:00 97.4 92 16 91/66 98 Laboratory Date/Time Procedure Status Source Growth 01/01/17 21:12 Stool Occult Blood ([facility]) Received Stool Stool Pending 12/29/16 23:15 Urine Culture - Final Complete Urine Clean Catch <10,000 CFU/ML GRAM POSITIVE TIFFANY 12/28/16 16:15 Gram Stain - Final Complete Fluid Peritoneal Fluid 12/28/16 16:15 Body Fluid Culture - Final Complete Fluid Peritoneal Fluid NO GROWTH IN 72 HRS.--AEROBICALLY OR ... 12/28/16 06:35 Aerobic Blood Culture - Preliminary Resulted Blood Peripheral NO GROWTH IN 4 DAYS 12/28/16 06:35 Anaerobic Blood Culture - Preliminary Resulted Blood Peripheral NO GROWTH IN 4 DAYS Imaging Last 48 hours Impressions Catheter Placement X-Ray 12/31/16 0951 Signed Impressions: Service Date/Time: Saturday, December 31, 2016 11:21 - CONCLUSION: Uncomplicated PermaCath placement as above. Bakari Amado MD Assessment and Plan Assessment: (1) Renal failure Status: Acute Plan L BC AVF when off antibiotics for SBP, likely this hospitalization. Will follow. L UE precautions. Ok for all other medical therapy, including subq hep for DVT prophylaxis. Veto Hines MD Jan 02, 2017 06:11
[2017-01-02 07:19] LABS: HEMATOCRIT 25.6 % (39.0-51.0); MEAN CELL VOLUME 93.1 FL (80.0-100.0); MEAN CORPUSCULAR HEMOGLOBIN 31.7 PG (27.0-34.0); PLATELET COUNT 65 TH/MM3 (150-450); RED BLOOD COUNT 2.75 MIL/MM3 (4.50-5.90); RED CELL DISTRIBUTION WIDTH 14.4 % (11.6-17.2); WHITE BLOOD COUNT 14.4 TH/MM3 (4.0-11.0)
[2017-01-02 07:22] LABS: APTT (PATIENT) 22.6 SEC (24.3-30.1); PROTHROMBIN TIME - PATIENT 11.4 SEC (9.8-11.6)
[2017-01-02 07:34] LABS: BICARBONATE 24.5 MEQ/L (21.0-32.0); INDIRECT BILIRUBIN 0.6 MG/DL (0.0-0.8); TOTAL BILIRUBIN ADULT 0.8 MG/DL (0.2-1.0)
--- NOTE | 2017-01-02 07:37 | HHI.PR ---
Subjective Remarks resting comfortably with no distress. overall doing fine. abdominal pain is much better. no fever. Objective Vitals Vital Signs Date Time Temp Pulse Resp B/P Pulse Ox O2 Delivery O2 Flow Rate FiO2 01/02/17 04:00 96.8 94 17 116/70 98 01/02/17 00:34 98 01/02/17 00:00 97.6 93 18 125/66 97 01/01/17 18:45 98.2 97 16 129/69 98 01/01/17 12:00 96.7 91 16 114/61 97 01/01/17 10:31 91 01/01/17 08:44 94 21 01/01/17 08:20 87 100/52 01/01/17 08:00 97.4 92 16 91/66 98 I/O 01/01/17 01/01/17 01/01/17 01/02/17 01/02/17 01/02/17 07:00 15:00 23:00 07:00 15:00 23:00 Intake Total 110 ml 480 ml 460 ml Output Total 700 ml 4300 ml Balance 110 ml -220 ml -4300 ml 460 ml Intake Oral 480 ml 350 ml IV Total 110 ml 110 ml Output Urine Total 700 ml 300 ml Hemodialysis 4000 ml # Voids 2 # Bowel Movements 1 Result Diagram: 01/01/17 0600 01/01/17 0600 Imaging Last Impressions Catheter Placement X-Ray 12/31/16 0951 Signed Impressions: Service Date/Time: Saturday, December 31, 2016 11:21 - CONCLUSION: Uncomplicated PermaCath placement as above. Bakari Amado MD Abdomen/Pelvis CT 12/28/16 0000 Signed Impressions: Service Date/Time: Wednesday, December 28, 2016 03:28 - CONCLUSION: Liver cirrhosis and stigmata of portal hypertension. Abundant ascites. Small bilateral pleural effusions and left base pneumonia. Derek Krause MD Abdomen Ultrasound 12/28/16 0000 Signed Impressions: Service Date/Time: Wednesday, December 28, 2016 06:43 - CONCLUSION: 1. Flow within the main portal vein is not confirmed with certainty which raises the possibility of portal vein thrombus. CT or MRI of the abdomen with contrast may be helpful for father evaluation of this finding. 2. Small heterogeneous nodular liver consistent with cirrhosis. 3. Ascites. 4. Splenomegaly. 5. Distended thick walled gallbladder with pericholecystic fluid and possible stone or polyp in the neck. Clinical correlation is recommended to rule out acute cholecystitis. 6. Poor visualization of the pancreas and right kidney due to shadowing bowel gas. Veto Cortez MD Chest X-Ray [id number]/[id number] Signed Impressions: Service Date/Time: Sunday, December 25, 2016 21:45 - CONCLUSION: Cardiomegaly without evidence of acute cardiopulmonary process. Bakari Amado MD Objective Remarks GENERAL: This is a well-nourished, well-developed patient, in no apparent distress. CARDIOVASCULAR: Regular rate and regular rhythm without murmurs, gallops, or rubs. RESPIRATORY: Clear to auscultation. Breath sounds equal bilaterally. No wheezes , rales, or rhonchi. GASTROINTESTINAL: Abdomen soft, non-tender, distended. Normal, active bowel sounds MUSCULOSKELETAL: Extremities with bilateral pedal edema. NEURO: Alert & Oriented x4 to person, place, time, situation. Moves all ext x4 Procedures paracentesis permacath placement Medications and IVs Current Medications IV Flush (NS Flush) 2 ml UNSCH PRN FLUSH FLUSH AFTER USING IV ACCESS; Start at 23:15 IV Flush (NS Flush) 2 ml BID FLUSH Last administered on 01/01/17 21:58; Start 12/26/16 at 09:00 Heparin Sodium (Porcine) (Heparin Inj) 5,000 units Q8H SQ Last administered on 12/28/16 09:23; Start 12/26/16 at 00:00; Stop 12/28/16 at 14:41; Status DC Naloxone HCl (Narcan Inj) 0.4 mg UNSCH PRN IV SEE LABEL COMMENTS; Start at 23:15 Acetaminophen (Tylenol) 650 mg Q4H PRN PO headaches/pain/ fever >101 Last administered on 12/28/16 05:54; Start 12/26/16 at 05:15 Diphenhydramine HCl (Benadryl) 25 mg ONCE ONCE PO Last administered on 05:32; Start 12/26/16 at 05:15; Stop 12/26/16 at 05:16; Status DC Furosemide (Lasix) 40 mg DAILY PO ; Start 12/26/16 at 09:00; Stop 12/26/16 at 11: 08; Status DC Mycophenolate Mofetil (Cellcept) 500 mg BID@,18 PO Last administered on 05:06; Start 12/26/16 at 18:00; Stop 12/27/16 at 11:02; Status DC Nifedipine (Procardia Xl) 60 mg DAILY PO Last administered on 12/31/16 09:25; Start 12/26/16 at 09:00; Stop 01/01/17 at 09:55; Status DC Pantoprazole Sodium (Protonix) 40 mg DAILY PO ; Start 12/26/16 at 09:00; Stop 12/26/16 at 11:08; Status DC Prednisone (Deltasone) 20 mg DAILY PO ; Start 12/26/16 at 09:00; Stop 12/26/16 at 09:00; Status DC Alprazolam (Xanax) 0.125 mg Q6H PRN PO ANXIETY Last administered on 12/27/16 16 :34; Start 12/26/16 at 07:45; Stop 12/28/16 at 14:45; Status DC Miscellaneous (Pill Splitter) 1 ea UNSCH PRN OTHER SEE LABEL COMMENTS Last administered on 12/30/16 17:40; Start 12/26/16 at 08:00 Prednisone (Deltasone) 40 mg DAILY PO ; Start 12/26/16 at 09:00; Stop 12/26/16 at 11:08; Status DC Prednisone (Deltasone) 60 mg DAILY PO Last administered on 12/28/16 09:23; Start 12/27/16 at 09:00; Stop 12/28/16 at 20:05; Status DC Prednisone (Deltasone) 20 mg ONCE ONCE PO Last administered on 12/26/16 12:30 ; Start 12/26/16 at 11:15; Stop 12/26/16 at 11:16; Status DC Bumetanide (Bumex Inj) 2 mg BID@,18 IV PUSH Last administered on 12/28/16 09: 22; Start 12/26/16 at 18:00; Stop 12/28/16 at 11:20; Status DC Diphenhydramine HCl (Benadryl) 25 mg HS PRN PO insomnia Last administered on 23:41; Start 12/27/16 at 01:45; Stop 12/28/16 at 14:46; Status DC Mycophenolate Mofetil (Cellcept) 1,000 mg BID@06,18 PO Last administered on 12/28 18:21; Start 12/27/16 at 18:00; Stop 12/28/16 at 20:05; Status DC Acetaminophen/ Hydrocodone Bitart (Purcell 5-325 Mg) 1 tab Q6H PRN PO PAIN NOT RELIEVED BY TYLENOL Last administered on 12/28/16 11:37; Start 12/27/16 at 16:00 ; Stop 12/28/16 at 14:46; Status DC Albuterol Sulfate 2.5 mg 2.5 mg Q6HR NEB PRN INH SHORTNESS OF BREATH Last administered on 12/27/16 20:12; Start 12/27/16 at 16:00 Cefepime HCl/ Sodium Chloride (Maxipime Inj/NS Inj) 100 ml @ 200 mls/hr Q24H IV Last administered on 01/02/17 05:38; Start 12/28/16 at 05:00 Morphine Sulfate 2 mg 2 mg Q3H PRN IV PUSH breakthrough pain Last administered on 12/28/16 09:23; Start 12/28/16 at 05:30; Stop 12/28/16 at 14:46; Status DC Metronidazole 100 ml @ 100 mls/hr Q6H IV Last administered on 01/01/17 06:33; Start 12/28/16 at 06:00; Stop 01/01/17 at 08:11; Status DC Vancomycin HCl/ Sodium Chloride (Vancomycin Inj/ NS 500 ml Inj) 515 ml @ 257.5 mls/ hr ONCE ONCE IV Last administered on 12/28/16 08:40; Start 12/28/16 at 06: 45; Stop 12/28/16 at 08:44; Status DC Sevelamer Carbonate 800 mg 800 mg TIDAC PO Last administered on 01/01/17 08:16 ; Start 12/28/16 at 12:00 Bumetanide 100 ml @ 8 mls/hr CONTINUOUS IV Last administered on 12/28/16 15:11 ; Start 12/28/16 at 13:30; Stop 12/28/16 at 17:24; Status DC Heparin Sodium/ Dextrose (Heparin-D5W Inj) 250 ml @ 0 mls/hr TITRATE IV Last administered on 12/28/16 15:12; Start 12/28/16 at 14:45; Stop 12/28/16 at 21:51; Status DC Hydromorphone HCl (Dilaudid Pf Inj) 0.5 mg Q4H PRN IV PUSH pain 7-10 or not taking po Last administered on 01/02/17 02:05; Start 12/28/16 at 14:45 Oxycodone HCl (Roxicodone) 5 mg Q4H PRN PO pain 3-6 Last administered on 18:22; Start 12/28/16 at 14:45 Pantoprazole Sodium (Protonix Inj) 40 mg Q24H IV PUSH Last administered on 15:00; Start 12/28/16 at 15:00; Stop 01/01/17 at 08:12; Status DC Bumetanide (Bumetanide) 2 mg BID@,18 PO Last administered on 01/01/17 08:15; Start 12/28/16 at 18:00 Mycophenolate Mofetil (Cellcept) 500 mg BID@06,18 PO Last administered on 05:22; Start 12/29/16 at 06:00; Stop 01/01/17 at 09:15; Status DC Prednisone 40 mg 40 mg DAILY PO Last administered on 01/01/17 08:15; Start 12/29 at 09:00; Stop 01/01/17 at 09:52; Status DC Heparin Sodium/ Dextrose (Heparin-D5W Inj) 250 ml @ 0 mls/hr TITRATE IV Last administered on 12/30/16 01:58; Start 12/28/16 at 22:00; Stop 12/30/16 at 12:16; Status DC Alprazolam (Xanax) 0.5 mg NOW PO Last administered on 12/28/16 23:22; Start 12/28/16 at 23:15; Stop 12/29/16 at 00:45; Status DC Ondansetron HCl (Zofran Inj) 4 mg Q6H PRN IV PUSH NAUSEA Last administered on 22:09; Start 12/29/16 at 09:30 Alprazolam (Xanax) 0.125 mg Q12HR PRN PO ANXIETY Last administered on 12/30/16 01:39; Start 12/29/16 at 13:00; Stop 12/30/16 at 07:52; Status DC Alprazolam (Xanax) 0.125 mg Q6HR PRN PO ANXIETY Last administered on 01/02/17 04:06; Start 12/30/16 at 12:00 Miscellaneous (Pill Splitter) 1 ea UNSCH PRN OTHER SEE LABEL COMMENTS; Start at 08:00 Albumin Human (Albumin 25% Inj) 12.5 gm Q12H IV Last administered on 01/01/17 21:58; Start 12/30/16 at 20:00 Midazolam HCl (Versed Inj) 5 mg STK-MED ONCE .ROUTE Last administered on 10:57; Start 12/31/16 at 10:57; Stop 12/31/16 at 10:58; Status DC Fentanyl Citrate (fentaNYL INJ) 250 mcg STK-MED ONCE .ROUTE Last administered on 12/31/16 10:57; Start 12/31/16 at 10:57; Stop 12/31/16 at 10:58; Status DC Vancomycin HCl (Vancomycin Inj) 1,000 mg STK-MED ONCE .ROUTE Last administered on 12/31/16 10:58; Start 12/31/16 at 10:58; Stop 12/31/16 at 10:59; Status DC Heparin Sodium (Porcine) (*HEPARIN INJ Periprocedural ONLY) 10,000 units STK- MED ONCE .ROUTE Last administered on 12/31/16 11:40; Start 12/31/16 at 11:19; Stop 12/31/16 at 11:20; Status DC Lidocaine/ Epinephrine 20 ml 20 ml STK-MED ONCE .ROUTE Last administered on 12/31 11:25; Start 12/31/16 at 11:19; Stop 12/31/16 at 11:20; Status DC Sodium Chloride (NS 1000 ml Inj) 1,000 ml @ 0 mls/hr Q0M PRN IV For Prime & Rinse Back Last administered on 12/31/16 17:02; Start 12/31/16 at 11:44 Heparin Sodium (Porcine) 8000 units 8,000 units UNSCH PRN IVF WITH DIALYSIS; Start 12/31/16 at 11:45 Sodium Chloride 1,000 ml @ 200 mls/hr Q5H PRN IV WITH DIALYSIS; Start 12/31/16 at 11:44 Sodium Chloride (NS 1000 ml Inj) 1,000 ml @ 0 mls/hr Q0M PRN IV WITH DIALYSIS Last administered on 12/31/16 17:03; Start 12/31/16 at 11:44 Mannitol (Mannitol Inj) 12.5 gm UNSCH PRN IV WITH DIALYSIS; Start 12/31/16 at 11 :45 Albumin Human (Albumin 25% Inj) 25 gm UNSCH PRN IV WITH DIALYSIS; Start at 11:45 IV Flush (NS Flush) 5 ml UNSCH PRN IVF WITH DIALYSIS Last administered on 17:01; Start 12/31/16 at 11:45 Heparin Sodium (Porcine) (Heparin Inj) UNSCH PRN .XX WITH DIALYSIS Last administered on 01/01/17 18:18; Start 12/31/16 at 11:45 Gentamicin Sulfate (Gentamicin (Dialysis) Inj) 20 mg UNSCH PRN IV WITH DIALYSIS Last administered on 01/01/17 18:18; Start 12/31/16 at 11:45 Ondansetron HCl (Zofran Inj) 4 mg UNSCH PRN IV WITH DIALYSIS; Start 12/31/16 at 11:45 Acetaminophen (Tylenol) 650 mg UNSCH PRN PO for headach, pain, temp > 101F; Start 12/31/16 at 11:45 Diphenhydramine HCl (Benadryl) 25 mg UNSCH PRN PO for hives/itching/anaphylaxis ; Start 12/31/16 at 11:45 Nitroglycerin (Nitrostat Sl) 0.4 mg UNSCH PRN SL CHEST PAIN; Start 12/31/16 at 11:45 Clonidine (Catapres) 0.1 mg UNSCH PRN PO for BP > 180/100 X 2 readings; Start 12/31/16 at 11:45 Gelatin (Gelfoam 12 Mm/7 Mm Top) 1 foam UNSCH PRN TOP SEE LABEL COMMENTS; Start 12/31/16 at 11:45 Epoetin [place] (Epogen Inj) 10,000 units UNSCH PRN IV WITH DIALYSIS Last administered on 12/31/16 17:01; Start 12/31/16 at 11:45 Pantoprazole Sodium (Protonix) 40 mg DAILY PO Last administered on 01/01/17 08: 18; Start 01/01/17 at 09:00 Prednisone (Deltasone) 30 mg DAILY PO ; Start 01/02/17 at 09:00 A/P Assessment and Plan A/P IgA nephropathy Acute on chronic renal failure -continue to taper down prednisone. -Cellecept was discontinued. -started on HD- s/p perma-cath placement -vascular surgery consulted for AV graft placement; graft placement after he's finished the course of IV Abx. -monitor renal function Nephrology following:Dr. Mayer Alcoholic cirrhosis Acute abdominal pain Possible SBP Trend LFTs Diagnostic paracentesis done;fluid culture negative so far. -continue antibiotic till 01/09/17 per GI -evaluated by GI Thrombocytopeniasecondary to cirrhosis Possible portal vein thrombosis Leukocytosis Sepsis Possible spontaneous bacterial peritonitis -will continue antibiotic as noted above -dc'ed heparin drip after discussion with GI -surgery signed off- f/u as outpatient Prophylaxis: GI Prophylaxis Protonix 40 mg IV every 12 hours DVT Prophylaxis -- SCDs - subq Heparin- Sachi Medeiros MD Jan 02, 2017 07:36
[2017-01-02 07:55] LABS: REVIEW FLAG FINAL
[2017-01-02] MEDS: ALBUMIN HUMAN 25% 12.5 GM/50 ML BAGP IV SCH ×2 (08:00→20:09)
[2017-01-02] MEDS: PANTOPRAZOLE SOD 40 MG DELAYED RELEASE TAB PO SCH (08:59)
[2017-01-02] MEDS: SODIUM CHLORIDE 0.9% FLUSH 5 ML FLUSH FLUSH SCH ×2 (09:00→20:14)
[2017-01-02] MEDS: BUMETANIDE 1 MG TAB PO SCH ×2 (09:00→17:56)
[2017-01-02] MEDS: predniSONE 10 MG TAB PO SCH (09:00)
[2017-01-02 10:31] LABS: TRANSFERRIN IRON PROFILE 116 MG/DL (200-360)
--- NOTE | 2017-01-02 11:37 | HHI.NPPN ---
Subjective Complaints: Obesity General Problems: Edema Renal Failure: Chronic, Acute Interval History 4L UF yesterday. no new concerns. (Helen Gaspar) Review of Systems General Constitutional: Fatigue (Helen Gaspar) Cardiovascular Cardiac: Edema (Helen Gaspar) Objective Data Data 01/01/17 01/02/17 19:00 07:00 Intake Total 480 ml 460 ml Output Total 700 ml 4300 ml Balance -220 ml -3840 ml Intake Oral 480 ml 350 ml IV Total 110 ml Output Urine Total 700 ml 300 ml Hemodialysis 4000 ml # Voids 2 # Bowel Movements 1 Vital Signs Date Time Temp Pulse Resp B/P Pulse Ox O2 Delivery O2 Flow Rate FiO2 01/02/17 09:16 95 21 01/02/17 08:00 96.8 86 16 114/65 95 01/02/17 04:00 96.8 94 17 116/70 98 01/02/17 00:34 98 01/02/17 00:00 97.6 93 18 125/66 97 01/01/17 18:45 98.2 97 16 129/69 98 01/01/17 12:00 96.7 91 16 114/61 97 (Helen Gaspar) -: 01/02/17 0652 01/02/17 0652 Microbiology 01/01/17 Stool Occult Blood ([facility]CKINLEY), Received Pending Tubes & Lines: Perma-Cath (Helen Gaspar) Physical Exam General Appearance: Well Developed, Well Nourished, No Acute Distress, Comfortable, Obese (Helen Gaspar) Throat Throat Exam: Oral Mucosa [place] & Moist (Helen Gaspar) Pulmonary Resp Exam: Breath Sounds Equal, No Distress, Decreased Bases (Helen Gaspar) Cardiology CV Exam: Regular, Normal Sinus Rhythm (Helen Gaspar) Gastrointestinal/Abdomen GI Exam: Soft, Non-Tender (Helen Gaspar) Musculoskeletal MS Exam: Joints Intact, Normal Tone (Helen Gaspar) Integumentary Skin Exam: Clear, Warm, Dry, Intact (Helen Gaspar) Extremeties Extremities Exam: Pedal Pulses Palpable, Moderate Edema, Pitting Edema, Dependent Edema (Helen Gaspar) Neurologic Neuro Exam: Alert, Awake, Oriented, Speech Clear, Moving All Extremities ( Helen Gaspar) Psychiatric Psych Exam: Appropriate Responses (Helen Gaspar) Assessment/Plan Discussed Condition With: Patient Assessment Summary: SAL/Acute Renal Failure, Fluid/Volume Overload, Hypertension Problem List: (1) Acute renal failure Plan: in 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 Hines, vascular, following for AVF placement once off antibiotics; protect left arm from IV/BP measurements Nifedipine was stopped phos elevated, Renvela dose increased renal panel in am he is having insurance issues, will be admitted until able to be in transitional HD program goal is to go to [facility] when approved (2) RPGN (rapidly progressive glomerulonephritis) Plan: see above (3) IgA nephropathy determined by renal biopsy Plan: change immunosuppressive medications as above monitor renal function management as above he has progressed to ESRD (4) Thrombocytopenia Plan: improving, it was thought cirrhosis may have been the etiology no active bleeding (5) Leukocytosis Plan: GI signed off on Abx for 10 days total AVF surgery after infection clears monitor clinically , carefully monitor drug levels when appropriate Plan (Helen Gaspar) Plan patient was seen and examined. Agree with above assessment and plan. Needs outpatient dialysis arrangements. Needs AVF placed. (Fredo Mayer MD) Problem Qualifiers (1) Acute renal failure: Qualified Code: N17.9 - Acute renal failure, unspecified acute renal failure type Helen Gaspar Jan 02, 2017 11:37 Fredo Mayer MD Jan 03, 2017 09:57
[2017-01-02] MEDS: SEVELAMER CARBONATE 800 MG TAB PO SCH ×2 (12:40→16:43)
[2017-01-02] MEDS: ONDANSETRON HCL 4 MG/2 ML VIAL IV PRN (16:44)
[2017-01-02] MEDS ORDERED: HEPARIN SODIUM - SQ 10,000 UNITS/ML VIAL SQ SCH (21:00)
[2017-01-03] VITALS (7 sets, daily range): BP systolic 120–144; BP diastolic 64–87; PULSE 87–92; RESP 17–18; TEMP 96.9–98.1; O2SAT 94–98
[2017-01-03] MEDS: HYDROmorphone HCL PF 1 MG/ML VIAL IV PUSH PRN ×5 (01:34→23:41)
[2017-01-03] MEDS: ALPRAZolam 0.25 MG TAB PO PRN ×3 (04:21→20:43)
[2017-01-03] MEDS: CEFEPIME INJ 1,000 MG in SODIUM CHLORIDE 0.9% INJ 100 ML IV SCH (04:21)
[2017-01-03 07:55] LABS: HEMATOCRIT 24.9 % (39.0-51.0); MEAN CELL VOLUME 95.2 FL (80.0-100.0); MEAN CORPUSCULAR HEMOGLOBIN 32.1 PG (27.0-34.0); MEAN CORPUSCULAR HGB CONC 33.7 % (32.0-36.0); PLATELET COUNT 58 TH/MM3 (150-450); RED BLOOD COUNT 2.61 MIL/MM3 (4.50-5.90); RED CELL DISTRIBUTION WIDTH 14.5 % (11.6-17.2); WHITE BLOOD COUNT 11.8 TH/MM3 (4.0-11.0)
[2017-01-03 08:00] LABS: APTT (PATIENT) 26.8 SEC (24.3-30.1); PROTHROMBIN TIME - PATIENT 11.6 SEC (9.8-11.6)
[2017-01-03] MEDS: ALBUMIN HUMAN 25% 12.5 GM/50 ML BAGP IV SCH ×2 (08:00→19:05)
[2017-01-03] MEDS: SEVELAMER CARBONATE 800 MG TAB PO SCH ×3 (08:00→18:09)
[2017-01-03 08:02] LABS: REVIEW FLAG FINAL
[2017-01-03 08:37] LABS: BICARBONATE 26.2 MEQ/L (21.0-32.0); POTASSIUM 3.7 MEQ/L (3.5-5.1)
[2017-01-03 08:39] LABS: INDIRECT BILIRUBIN 0.6 MG/DL (0.0-0.8); TOTAL BILIRUBIN ADULT 0.8 MG/DL (0.2-1.0)
[2017-01-03] MEDS: BUMETANIDE 1 MG TAB PO SCH ×2 (08:49→18:09)
[2017-01-03] MEDS: SODIUM CHLORIDE 0.9% FLUSH 5 ML FLUSH FLUSH SCH ×2 (08:53→19:06)
--- NOTE | 2017-01-03 09:17 | PD.VS.PN ---
Subjective Subjective/Hospital Course Pt resting in bed with no complaints, Alert and oriented Discussed with patient AVF creation that is scheduled for Tue AM (01/08/17) @ 0730 Pt states he has not had any needle punctures or B/P readings on LUE Pt denies fever Consent signed and placed in chart Objective Vitals/I&O Date Time Temp Pulse Resp B/P Pulse Ox O2 Delivery O2 Flow Rate FiO2 01/03/17 08:00 98.1 88 18 144/87 96 01/03/17 04:00 96.9 89 17 140/86 95 01/03/17 00:00 97.3 91 17 134/79 98 01/02/17 20:56 97 21 01/02/17 20:00 96.9 94 18 134/70 96 01/02/17 20:00 89 01/02/17 15:43 97.2 96 17 127/69 95 01/02/17 12:00 96.9 87 17 109/64 96 01/02/17 09:16 95 21 01/03/17 01/03/17 01/03/17 07:00 15:00 23:00 Intake Total 200 ml Balance 200 ml Physical Exam GENERAL: A&OX3, GCS15, NAD, obese male SKIN: Warm and dry. CARDIOVASCULAR: +S1, S2, RRR MUSCULOSKELETAL: BLE 3+ pitting edema to feet Bilat Strong palpable radial pulses noted Laboratory Laboratory Tests Test 01/03/17 06:44 White Blood Count 11.8 Red Blood Count 2.61 Hemoglobin 8.4 Hematocrit 24.9 Mean Corpuscular Volume 95.2 Mean Corpuscular Hemoglobin 32.1 Mean Corpuscular Hemoglobin 33.7 Concent Red Cell Distribution Width 14.5 Platelet Count 58 Mean Platelet Volume 7.4 Prothrombin Time 11.6 Prothromb Time International 1.0 Ratio Activated Partial 26.8 Thromboplast Time Sodium Level 137 Potassium Level 3.7 Chloride Level 98 Carbon Dioxide Level 26.2 Anion Gap 13 Blood Urea Nitrogen 92 Creatinine 3.69 Estimat Glomerular Filtration 18 Rate Random Glucose 90 Calcium Level 7.9 Total Bilirubin 0.8 Direct Bilirubin 0.2 Indirect Bilirubin 0.6 Aspartate Amino Transf 21 (AST/SGOT) Alanine Aminotransferase 18 (ALT/SGPT) Alkaline Phosphatase 73 Total Protein 4.3 Albumin 2.6 Date/Time Procedure Status Source Growth 01/01/17 21:12 Stool Occult Blood (MCKINLEY) - Final Complete Stool Stool HEMOCCULT NEGATIVE 12/29/16 23:15 Urine Culture - Final Complete Urine Clean Catch <10,000 CFU/ML GRAM POSITIVE TIFFANY Imaging Current Medications Medications (Trade) Dose Ordered Sig/Noni Route Start Time Stop Time Status Last Admin (NS Flush) 2 ml UNSCH PRN FLUSH 12/25/16 23:15 (NS Flush) 2 ml BID FLUSH 12/26/16 09:00 01/03/17 08:53 (Narcan Inj) 0.4 mg UNSCH PRN IV 12/25/16 23:15 (Tylenol) 650 mg Q4H PRN PO 12/26/16 05:15 12/28/16 05:54 Miscellaneous 1 ea 1 ea UNSCH PRN OTHER 12/26/16 08:00 12/30/16 17:40 (Maxipime Inj/NS Inj) 100 ml @ 200 mls/hr Q24H IV 12/28/16 05:00 01/09/17 08:00 01/03/17 04:21 (Dilaudid Pf Inj) 0.5 mg Q4H PRN IV PUSH 12/28/16 14:45 01/03/17 05:33 (Roxicodone) 5 mg Q4H PRN PO 12/28/16 14:45 12/29/16 18:22 (Bumetanide) 2 mg BID@09,18 PO 12/28/16 18:00 01/02/17 17:56 (Zofran Inj) 4 mg Q6H PRN IV PUSH 12/29/16 09:30 01/01/17 22:09 (Xanax) 0.125 mg Q6HR PRN PO 12/30/16 12:00 01/03/17 04:21 (Pill Splitter) 1 ea UNSCH PRN OTHER 12/30/16 08:00 Albumin Human 12.5 gm 12.5 gm Q12H IV 12/30/16 20:00 01/03/17 08:00 (NS 1000 ml Inj) 1,000 ml @ 0 mls/hr Q0M PRN IV 12/31/16 11:44 12/31/16 17:02 Heparin Sodium (Porcine) 8000 units 8,000 units UNSCH PRN IVF 12/31/16 11:45 Sodium Chloride 1,000 ml @ 200 mls/hr Q5H PRN IV 12/31/16 11:44 (NS 1000 ml Inj) 1,000 ml @ 0 mls/hr Q0M PRN IV 12/31/16 11:44 12/31/16 17:03 (Mannitol Inj) 12.5 gm UNSCH PRN IV 12/31/16 11:45 (Albumin 25% Inj) 25 gm UNSCH PRN IV 12/31/16 11:45 (NS Flush) 5 ml UNSCH PRN IVF 12/31/16 11:45 12/31/16 17:01 (Heparin Inj) UNSCH PRN .XX 12/31/16 11:45 01/01/17 18:18 (Gentamicin (Dialysis) Inj) 20 mg UNSCH PRN IV 12/31/16 11:45 01/01/17 18:18 (Zofran Inj) 4 mg UNSCH PRN IV 12/31/16 11:45 01/02/17 16:44 (Tylenol) 650 mg UNSCH PRN PO 12/31/16 11:45 (Benadryl) 25 mg UNSCH PRN PO 12/31/16 11:45 (Nitrostat Sl) 0.4 mg UNSCH PRN SL 12/31/16 11:45 (Catapres) 0.1 mg UNSCH PRN PO 12/31/16 11:45 (Gelfoam 12 Mm/7 Mm Top) 1 foam UNSCH PRN TOP 12/31/16 11:45 (Epogen Inj) 10,000 units UNSCH PRN IV 12/31/16 11:45 12/31/16 17:01 (Protonix) 40 mg DAILY PO 01/01/17 09:00 01/02/17 08:59 (Deltasone) 30 mg DAILY PO 01/02/17 09:00 01/02/17 09:00 (Heparin Inj) 5,000 units Q12HR SQ 01/02/17 21:00 Hold (Renvela) 1,600 mg TIDAC PO 01/02/17 12:00 01/02/17 16:43 Assessment and Plan Assessment: (1) Renal failure Status: Acute Plan Pt scheduled for L BC with Dr. Hines on Sat01/08/17 at 0730 Continue L UE precautions Ok for all other medical therapy, including subq hep for DVT prophylaxis Crissy Ledbetter Jan 03, 2017 09:17
--- NOTE | 2017-01-03 09:35 | HHI.PR ---
Subjective Remarks having his HD today. abdominal pain has almost resolved. no new complaints. Objective Vitals Vital Signs Date Time Temp Pulse Resp B/P Pulse Ox O2 Delivery O2 Flow Rate FiO2 01/03/17 08:00 98.1 88 18 144/87 96 01/03/17 04:00 96.9 89 17 140/86 95 01/03/17 00:00 97.3 91 17 134/79 98 01/02/17 20:56 97 21 01/02/17 20:00 96.9 94 18 134/70 96 01/02/17 20:00 89 01/02/17 15:43 97.2 96 17 127/69 95 01/02/17 12:00 96.9 87 17 109/64 96 I/O 01/02/17 01/02/17 01/02/17 01/03/17 01/03/17 01/03/17 07:00 15:00 23:00 07:00 15:00 23:00 Intake Total 460 ml 720 ml 480 ml 200 ml Output Total 500 ml Balance 460 ml 220 ml 480 ml 200 ml Intake Oral 350 ml 720 ml 480 ml IV Total 110 ml 200 ml Output Urine Total 500 ml # Voids 2 2 # Bowel Movements 0 Result Diagram: 01/03/17 0644 01/03/17 0644 Imaging Last Impressions Catheter Placement X-Ray 12/31/16 0951 Signed Impressions: Service Date/Time: Saturday, December 31, 2016 11:21 - CONCLUSION: Uncomplicated PermaCath placement as above. Bakari Amado MD Abdomen/Pelvis CT 12/28/16 0000 Signed Impressions: Service Date/Time: Wednesday, December 28, 2016 03:28 - CONCLUSION: Liver cirrhosis and stigmata of portal hypertension. Abundant ascites. Small bilateral pleural effusions and left base pneumonia. Derek Krause MD Abdomen Ultrasound 12/28/16 0000 Signed Impressions: Service Date/Time: Wednesday, December 28, 2016 06:43 - CONCLUSION: 1. Flow within the main portal vein is not confirmed with certainty which raises the possibility of portal vein thrombus. CT or MRI of the abdomen with contrast may be helpful for father evaluation of this finding. 2. Small heterogeneous nodular liver consistent with cirrhosis. 3. Ascites. 4. Splenomegaly. 5. Distended thick walled gallbladder with pericholecystic fluid and possible stone or polyp in the neck. Clinical correlation is recommended to rule out acute cholecystitis. 6. Poor visualization of the pancreas and right kidney due to shadowing bowel gas. Veto Cortez MD Chest X-Ray 12/[id number]/[id number] Signed Impressions: Service Date/Time: Sunday, December 25, 2016 21:45 - CONCLUSION: Cardiomegaly without evidence of acute cardiopulmonary process. Bakari Amado MD Objective Remarks GENERAL: This is a well-nourished, well-developed patient, in no apparent distress. CARDIOVASCULAR: Regular rate and regular rhythm without murmurs, gallops, or rubs. RESPIRATORY: Clear to auscultation. Breath sounds equal bilaterally. No wheezes , rales, or rhonchi. GASTROINTESTINAL: Abdomen soft, non-tender, distended. Normal, active bowel sounds MUSCULOSKELETAL: Extremities with bilateral pedal edema. NEURO: Alert & Oriented x4 to person, place, time, situation. Moves all ext x4 Procedures paracentesis permacath placement Medications and IVs Current Medications IV Flush (NS Flush) 2 ml UNSCH PRN FLUSH FLUSH AFTER USING IV ACCESS; Start at 23:15 IV Flush (NS Flush) 2 ml BID FLUSH Last administered on 01/03/17 08:53; Start 12/26/16 at 09:00 Heparin Sodium (Porcine) (Heparin Inj) 5,000 units Q8H SQ Last administered on 12/28/16 09:23; Start 12/26/16 at 00:00; Stop 12/28/16 at 14:41; Status DC Naloxone HCl (Narcan Inj) 0.4 mg UNSCH PRN IV SEE LABEL COMMENTS; Start at 23:15 Acetaminophen (Tylenol) 650 mg Q4H PRN PO headaches/pain/ fever >101 Last administered on 12/28/16 05:54; Start 12/26/16 at 05:15 Diphenhydramine HCl (Benadryl) 25 mg ONCE ONCE PO Last administered on 05:32; Start 12/26/16 at 05:15; Stop 12/26/16 at 05:16; Status DC Furosemide (Lasix) 40 mg DAILY PO ; Start 12/26/16 at 09:00; Stop 12/26/16 at 11: 08; Status DC Mycophenolate Mofetil (Cellcept) 500 mg BID@,18 PO Last administered on 05:06; Start 12/26/16 at 18:00; Stop 12/27/16 at 11:02; Status DC Nifedipine (Procardia Xl) 60 mg DAILY PO Last administered on 12/31/16 09:25; Start 12/26/16 at 09:00; Stop 01/01/17 at 09:55; Status DC Pantoprazole Sodium (Protonix) 40 mg DAILY PO ; Start 12/26/16 at 09:00; Stop 12/26/16 at 11:08; Status DC Prednisone (Deltasone) 20 mg DAILY PO ; Start 12/26/16 at 09:00; Stop 12/26/16 at 09:00; Status DC Alprazolam (Xanax) 0.125 mg Q6H PRN PO ANXIETY Last administered on 12/27/16 16 :34; Start 12/26/16 at 07:45; Stop 12/28/16 at 14:45; Status DC Miscellaneous (Pill Splitter) 1 ea UNSCH PRN OTHER SEE LABEL COMMENTS Last administered on 12/30/16 17:40; Start 12/26/16 at 08:00 Prednisone (Deltasone) 40 mg DAILY PO ; Start 12/26/16 at 09:00; Stop 12/26/16 at 11:08; Status DC Prednisone (Deltasone) 60 mg DAILY PO Last administered on 12/28/16 09:23; Start 12/27/16 at 09:00; Stop 12/28/16 at 20:05; Status DC Prednisone (Deltasone) 20 mg ONCE ONCE PO Last administered on 12/26/16 12:30 ; Start 12/26/16 at 11:15; Stop 12/26/16 at 11:16; Status DC Bumetanide (Bumex Inj) 2 mg BID@18 IV PUSH Last administered on 12/28/16 09: 22; Start 12/26/16 at 18:00; Stop 12/28/16 at 11:20; Status DC Diphenhydramine HCl (Benadryl) 25 mg HS PRN PO insomnia Last administered on 23:41; Start 12/27/16 at 01:45; Stop 12/28/16 at 14:46; Status DC Mycophenolate Mofetil (Cellcept) 1,000 mg BID@06,18 PO Last administered on 12/28 18:21; Start 12/27/16 at 18:00; Stop 12/28/16 at 20:05; Status DC Acetaminophen/ Hydrocodone Bitart (Milton 5-325 Mg) 1 tab Q6H PRN PO PAIN NOT RELIEVED BY TYLENOL Last administered on 12/28/16 11:37; Start 12/27/16 at 16:00 ; Stop 12/28/16 at 14:46; Status DC Albuterol Sulfate 2.5 mg 2.5 mg Q6HR NEB PRN INH SHORTNESS OF BREATH Last administered on 12/27/16 20:12; Start 12/27/16 at 16:00 Cefepime HCl/ Sodium Chloride (Maxipime Inj/NS Inj) 100 ml @ 200 mls/hr Q24H IV Last administered on 01/03/17 04:21; Start 12/28/16 at 05:00; Stop 01/09/17 at 08:00 Morphine Sulfate 2 mg 2 mg Q3H PRN IV PUSH breakthrough pain Last administered on 12/28/16 09:23; Start 12/28/16 at 05:30; Stop 12/28/16 at 14:46; Status DC Metronidazole 100 ml @ 100 mls/hr Q6H IV Last administered on 01/01/17 06:33; Start 12/28/16 at 06:00; Stop 01/01/17 at 08:11; Status DC Vancomycin HCl/ Sodium Chloride (Vancomycin Inj/ NS 500 ml Inj) 515 ml @ 257.5 mls/ hr ONCE ONCE IV Last administered on 12/28/16 08:40; Start 12/28/16 at 06: 45; Stop 12/28/16 at 08:44; Status DC Sevelamer Carbonate 800 mg 800 mg TIDAC PO Last administered on 01/01/17 08:16 ; Start 12/28/16 at 12:00; Stop 01/02/17 at 09:10; Status DC Bumetanide 100 ml @ 8 mls/hr CONTINUOUS IV Last administered on 12/28/16 15:11 ; Start 12/28/16 at 13:30; Stop 12/28/16 at 17:24; Status DC Heparin Sodium/ Dextrose (Heparin-D5W Inj) 250 ml @ 0 mls/hr TITRATE IV Last administered on 12/28/16 15:12; Start 12/28/16 at 14:45; Stop 12/28/16 at 21:51; Status DC Hydromorphone HCl (Dilaudid Pf Inj) 0.5 mg Q4H PRN IV PUSH pain 7-10 or not taking po Last administered on 01/03/17 05:33; Start 12/28/16 at 14:45 Oxycodone HCl (Roxicodone) 5 mg Q4H PRN PO pain 3-6 Last administered on 18:22; Start 12/28/16 at 14:45 Pantoprazole Sodium (Protonix Inj) 40 mg Q24H IV PUSH Last administered on 15:00; Start 12/28/16 at 15:00; Stop 01/01/17 at 08:12; Status DC Bumetanide (Bumetanide) 2 mg BID@09,18 PO Last administered on 01/02/17 17:56; Start 12/28/16 at 18:00 Mycophenolate Mofetil (Cellcept) 500 mg BID@06,18 PO Last administered on 05:22; Start 12/29/16 at 06:00; Stop 01/01/17 at 09:15; Status DC Prednisone 40 mg 40 mg DAILY PO Last administered on 01/01/17 08:15; Start 12/29 at 09:00; Stop 01/01/17 at 09:52; Status DC Heparin Sodium/ Dextrose (Heparin-D5W Inj) 250 ml @ 0 mls/hr TITRATE IV Last administered on 12/30/16 01:58; Start 12/28/16 at 22:00; Stop 12/30/16 at 12:16; Status DC Alprazolam (Xanax) 0.5 mg NOW PO Last administered on 12/28/16 23:22; Start 12/28/16 at 23:15; Stop 12/29/16 at 00:45; Status DC Ondansetron HCl (Zofran Inj) 4 mg Q6H PRN IV PUSH NAUSEA Last administered on 22:09; Start 12/29/16 at 09:30 Alprazolam (Xanax) 0.125 mg Q12HR PRN PO ANXIETY Last administered on 12/30/16 01:39; Start 12/29/16 at 13:00; Stop 12/30/16 at 07:52; Status DC Alprazolam (Xanax) 0.125 mg Q6HR PRN PO ANXIETY Last administered on 01/03/17 04:21; Start 12/30/16 at 12:00 Miscellaneous (Pill Splitter) 1 ea UNSCH PRN OTHER SEE LABEL COMMENTS; Start at 08:00 Albumin Human (Albumin 25% Inj) 12.5 gm Q12H IV Last administered on 01/03/17 08:00; Start 12/30/16 at 20:00 Midazolam HCl (Versed Inj) 5 mg STK-MED ONCE .ROUTE Last administered on 10:57; Start 12/31/16 at 10:57; Stop 12/31/16 at 10:58; Status DC Fentanyl Citrate (fentaNYL INJ) 250 mcg STK-MED ONCE .ROUTE Last administered on 12/31/16 10:57; Start 12/31/16 at 10:57; Stop 12/31/16 at 10:58; Status DC Vancomycin HCl (Vancomycin Inj) 1,000 mg STK-MED ONCE .ROUTE Last administered on 12/31/16 10:58; Start 12/31/16 at 10:58; Stop 12/31/16 at 10:59; Status DC Heparin Sodium (Porcine) (*HEPARIN INJ Periprocedural ONLY) 10,000 units STK- MED ONCE .ROUTE Last administered on 12/31/16 11:40; Start 12/31/16 at 11:19; Stop 12/31/16 at 11:20; Status DC Lidocaine/ Epinephrine 20 ml 20 ml STK-MED ONCE .ROUTE Last administered on 12/31 11:25; Start 12/31/16 at 11:19; Stop 12/31/16 at 11:20; Status DC Sodium Chloride (NS 1000 ml Inj) 1,000 ml @ 0 mls/hr Q0M PRN IV For Prime & Rinse Back Last administered on 12/31/16 17:02; Start 12/31/16 at 11:44 Heparin Sodium (Porcine) 8000 units 8,000 units UNSCH PRN IVF WITH DIALYSIS; Start 12/31/16 at 11:45 Sodium Chloride 1,000 ml @ 200 mls/hr Q5H PRN IV WITH DIALYSIS; Start 12/31/16 at 11:44 Sodium Chloride (NS 1000 ml Inj) 1,000 ml @ 0 mls/hr Q0M PRN IV WITH DIALYSIS Last administered on 12/31/16 17:03; Start 12/31/16 at 11:44 Mannitol (Mannitol Inj) 12.5 gm UNSCH PRN IV WITH DIALYSIS; Start 12/31/16 at 11 :45 Albumin Human (Albumin 25% Inj) 25 gm UNSCH PRN IV WITH DIALYSIS; Start at 11:45 IV Flush (NS Flush) 5 ml UNSCH PRN IVF WITH DIALYSIS Last administered on 17:01; Start 12/31/16 at 11:45 Heparin Sodium (Porcine) (Heparin Inj) UNSCH PRN .XX WITH DIALYSIS Last administered on 01/01/17 18:18; Start 12/31/16 at 11:45 Gentamicin Sulfate (Gentamicin (Dialysis) Inj) 20 mg UNSCH PRN IV WITH DIALYSIS Last administered on 01/01/17 18:18; Start 12/31/16 at 11:45 Ondansetron HCl (Zofran Inj) 4 mg UNSCH PRN IV WITH DIALYSIS Last administered on 01/02/17 16:44; Start 12/31/16 at 11:45 Acetaminophen (Tylenol) 650 mg UNSCH PRN PO for headach, pain, temp > 101F; Start 12/31/16 at 11:45 Diphenhydramine HCl (Benadryl) 25 mg UNSCH PRN PO for hives/itching/anaphylaxis ; Start 12/31/16 at 11:45 Nitroglycerin (Nitrostat Sl) 0.4 mg UNSCH PRN SL CHEST PAIN; Start 12/31/16 at 11:45 Clonidine (Catapres) 0.1 mg UNSCH PRN PO for BP > 180/100 X 2 readings; Start 12/31/16 at 11:45 Gelatin (Gelfoam 12 Mm/7 Mm Top) 1 foam UNSCH PRN TOP SEE LABEL COMMENTS; Start 12/31/16 at 11:45 Epoetin Jean Carlos (Epogen Inj) 10,000 units UNSCH PRN IV WITH DIALYSIS Last administered on 12/31/16 17:01; Start 12/31/16 at 11:45 Pantoprazole Sodium (Protonix) 40 mg DAILY PO Last administered on 01/02/17 08: 59; Start 01/01/17 at 09:00 Prednisone (Deltasone) 30 mg DAILY PO Last administered on 01/02/17 09:00; Start 01/02/17 at 09:00 Heparin Sodium (Porcine) (Heparin Inj) 5,000 units Q12HR SQ ; Start 01/02/17 at 21:00; Status Hold Sevelamer Carbonate (Renvela) 1,600 mg TIDAC PO Last administered on 01/02/17 16:43; Start 01/02/17 at 12:00 A/P Assessment and Plan A/P IgA nephropathy Acute on chronic renal failure -continue to taper down prednisone. -Cellecept was discontinued. -started on HD- s/p perma-cath placement -vascular surgery consulted for AV graft placement; scheduled for next Saturday. -monitor renal function Nephrology following:Dr. Mayer Alcoholic cirrhosis Acute abdominal pain Possible SBP Trend LFTs Diagnostic paracentesis done;fluid culture negative so far. -continue antibiotic till 01/09/17 per GI -evaluated by GI Thrombocytopeniasecondary to cirrhosis Possible portal vein thrombosis Leukocytosis Sepsis Possible spontaneous bacterial peritonitis -will continue antibiotic as noted above -dc'ed heparin drip after discussion with GI -surgery signed off- f/u as outpatient anemia of chronic disease stool negative for blood. on epogen per nephrology will monitor H/h periodiccally Prophylaxis: GI Prophylaxis Protonix 40 mg IV every 12 hours DVT Prophylaxis -- SCDs -no chemical prophylaxis due to thrombocytopenia. Sachi Medeiros MD Jan 03, 2017 09:35
--- NOTE | 2017-01-03 09:51 | HHI.NPPN ---
Subjective Complaints: Obesity General Problems: Edema Renal Failure: Chronic, Acute Interval History Seen during dialysis. No acute concerns. (Helen Gaspar) Review of Systems General Constitutional: Fatigue (Helen Gaspar) Cardiovascular Cardiac: Edema (Helen Gaspar) Objective Data Data 01/02/17 01/03/17 19:00 07:00 Intake Total 720 ml 680 ml Output Total 500 ml Balance 220 ml 680 ml Intake Oral 720 ml 480 ml IV Total 200 ml Output Urine Total 500 ml # Voids 2 # Bowel Movements 0 Vital Signs Date Time Temp Pulse Resp B/P Pulse Ox O2 Delivery O2 Flow Rate FiO2 01/03/17 09:48 97 21 01/03/17 08:00 98.1 88 18 144/87 96 01/03/17 04:00 96.9 89 17 140/86 95 01/03/17 00:00 97.3 91 17 134/79 98 01/02/17 20:56 97 21 01/02/17 20:00 96.9 94 18 134/70 96 01/02/17 20:00 89 01/02/17 15:43 97.2 96 17 127/69 95 01/02/17 12:00 96.9 87 17 109/64 96 (Helen Gaspar) -: 01/03/17 0644 01/03/17 0644 Tubes & Lines: Perma-Cath (Helen Gaspar) Physical Exam General Appearance: Well Developed, Well Nourished, No Acute Distress, Comfortable, Obese (Helen Gaspar) Throat Throat Exam: Oral Mucosa Sanders & Moist (Helen Gaspar) Pulmonary Resp Exam: Breath Sounds Equal, No Distress, Decreased Bases (Helen Gaspar) Cardiology CV Exam: Regular, Normal Sinus Rhythm (Helne Gaspar) Gastrointestinal/Abdomen GI Exam: Soft, Non-Tender (Helen Gaspar) Musculoskeletal MS Exam: Joints Intact, Normal Tone (Helen Gaspar) Integumentary Skin Exam: Clear, Warm, Dry, Intact (Helen Gaspar) Extremeties Extremities Exam: Pedal Pulses Palpable, Moderate Edema, Pitting Edema, Dependent Edema (Helen Gaspar) Neurologic Neuro Exam: Alert, Awake, Oriented, Speech Clear, Moving All Extremities ( Helen Gaspar) Psychiatric Psych Exam: Appropriate Responses (Helen Gaspar) Assessment/Plan Discussed Condition With: Patient Assessment Summary: Fluid/Volume Overload, Hypertension, End Stage Renal Disease Problem List: (1) Acute renal failure Plan: in a pt with 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 Hines vascular, following for AVF placement next week; protect left arm from IV/BP measurements Nifedipine was stopped monitor phos level renal panel in am he is having insurance issues, will be admitted until able to be in transitional HD program goal is to go to [facility] when approved (2) RPGN (rapidly progressive glomerulonephritis) Plan: see above (3) IgA nephropathy determined by renal biopsy Plan: change immunosuppressive medications as above monitor renal function management as above he has progressed to ESRD (4) Thrombocytopenia Plan: improving, it was thought cirrhosis may have been the etiology no active bleeding (5) Leukocytosis Plan: GI signed off continue Abx until 01/09 AVF surgery after infection clears monitor clinically , carefully monitor drug levels when appropriate Plan (Helen Gaspar) Problem List: (1) Acute renal failure Plan: in a pt with ESRD due to Iga nephropathy with RPGN he still makes some urine, but will be dialysis dependent HD T-Th-Sat, seen during dialysis on a 3K, 400 BFR, goal 5L off cellcept stopped, on prednisone taper s/p permcath placement reina Javed, following for AVF placement next week; protect left arm from IV/BP measurements Nifedipine was stopped monitor phos level renal panel in am he is having insurance issues, will be admitted until able to be in transitional HD program goal is to go to [facility] when approved (2) RPGN (rapidly progressive glomerulonephritis) Plan: see above (3) IgA nephropathy determined by renal biopsy Plan: change immunosuppressive medications as above monitor renal function management as above he has progressed to ESRD (4) Thrombocytopenia Plan: improving, it was thought cirrhosis may have been the etiology no active bleeding (5) Leukocytosis Plan: GI signed off continue Abx until 01/09 AVF surgery after infection clears monitor clinically , carefully monitor drug levels when appropriate Plan patient was seen and examined. Agree with above assessment and plan. UF of 5 liters. (Fredo Mayer MD) Problem Qualifiers (1) Acute renal failure: Qualified Code: N17.9 - Acute renal failure, unspecified acute renal failure type Helen Gaspar Jan 03, 2017 09:51 Fredo Mayer MD Jan 04, 2017 15:05
[2017-01-03] MEDS: predniSONE 10 MG TAB PO SCH (14:03)
[2017-01-03] MEDS: PANTOPRAZOLE SOD 40 MG DELAYED RELEASE TAB PO SCH (14:03)
[2017-01-03] MEDS: ONDANSETRON HCL 4 MG/2 ML VIAL IV PUSH PRN (23:40)
[2017-01-04] VITALS (7 sets, daily range): BP systolic 139–169; BP diastolic 71–86; PULSE 78–106; RESP 17–22; TEMP 97.2–97.9; O2SAT 96–98
[2017-01-04] MEDS: CEFEPIME INJ 1,000 MG in SODIUM CHLORIDE 0.9% INJ 100 ML IV SCH (03:48)
[2017-01-04] MEDS: HYDROmorphone HCL PF 1 MG/ML VIAL IV PUSH PRN (03:48)
[2017-01-04] MEDS: ALPRAZolam 0.25 MG TAB PO PRN ×4 (03:48→22:28)
[2017-01-04] MEDS: SEVELAMER CARBONATE 800 MG TAB PO SCH ×3 (07:58→16:31)
[2017-01-04] MEDS: ALBUMIN HUMAN 25% 12.5 GM/50 ML BAGP IV SCH ×2 (07:58→21:23)
[2017-01-04] MEDS: BUMETANIDE 1 MG TAB PO SCH ×2 (07:58→16:32)
[2017-01-04] MEDS: PANTOPRAZOLE SOD 40 MG DELAYED RELEASE TAB PO SCH (07:58)
[2017-01-04] MEDS: SODIUM CHLORIDE 0.9% FLUSH 5 ML FLUSH FLUSH SCH ×2 (07:59→21:23)
[2017-01-04] MEDS: predniSONE 10 MG TAB PO SCH (07:59)
[2017-01-04 08:07] LABS: HEMATOCRIT 24.3 % (39.0-51.0); MEAN CORPUSCULAR HEMOGLOBIN 32.4 PG (27.0-34.0); MEAN CORPUSCULAR HGB CONC 33.7 % (32.0-36.0); PLATELET COUNT 41 TH/MM3 (150-450); RED BLOOD COUNT 2.53 MIL/MM3 (4.50-5.90); RED CELL DISTRIBUTION WIDTH 14.9 % (11.6-17.2); WHITE BLOOD COUNT 10.9 TH/MM3 (4.0-11.0)
[2017-01-04 08:09] LABS: APTT (PATIENT) 29.4 SEC (24.3-30.1); PROTHROMBIN TIME - PATIENT 11.5 SEC (9.8-11.6)
--- NOTE | 2017-01-04 08:13 | HHI.PR ---
Subjective Remarks resting comfortably with no distress. complaining of headache. no abdominal pain or nausea. afebrile. d/w the RN. Objective Vitals Vital Signs Date Time Temp Pulse Resp B/P Pulse Ox O2 Delivery O2 Flow Rate FiO2 01/04/17 04:00 97.6 78 17 150/82 97 01/04/17 00:15 18 01/04/17 00:00 97.6 86 17 139/71 98 01/03/17 22:21 92 01/03/17 20:00 97.0 87 18 141/83 96 01/03/17 16:00 97.1 88 18 120/64 94 01/03/17 09:48 97 21 I/O 01/03/17 01/03/17 01/03/17 01/04/17 01/04/17 01/04/17 07:00 15:00 23:00 07:00 15:00 23:00 Intake Total 200 ml 960 ml 580 ml 601 ml Output Total 5100 ml 100 ml 100 ml Balance 200 ml -4140 ml 480 ml 501 ml Intake Oral 960 ml 480 ml 480 ml IV Total 200 ml 100 ml 121 ml Output Urine Total 100 ml 100 ml 100 ml Hemodialysis 5000 ml # Bowel Movements 1 Result Diagram: 01/03/17 0644 01/03/17 0644 Imaging Last Impressions Catheter Placement X-Ray 12/31/16 0951 Signed Impressions: Service Date/Time: Saturday, December 31, 2016 11:21 - CONCLUSION: Uncomplicated PermaCath placement as above. Bakari Amado MD Abdomen/Pelvis CT 12/28/16 0000 Signed Impressions: Service Date/Time: Wednesday, December 28, 2016 03:28 - CONCLUSION: Liver cirrhosis and stigmata of portal hypertension. Abundant ascites. Small bilateral pleural effusions and left base pneumonia. Derek Krause MD Abdomen Ultrasound 12/28/16 0000 Signed Impressions: Service Date/Time: Wednesday, December 28, 2016 06:43 - CONCLUSION: 1. Flow within the main portal vein is not confirmed with certainty which raises the possibility of portal vein thrombus. CT or MRI of the abdomen with contrast may be helpful for father evaluation of this finding. 2. Small heterogeneous nodular liver consistent with cirrhosis. 3. Ascites. 4. Splenomegaly. 5. Distended thick walled gallbladder with pericholecystic fluid and possible stone or polyp in the neck. Clinical correlation is recommended to rule out acute cholecystitis. 6. Poor visualization of the pancreas and right kidney due to shadowing bowel gas. Veto Cortez MD Chest X-Ray 12/25/[id number] Signed Impressions: Service Date/Time: Sunday, December 25, 2016 21:45 - CONCLUSION: Cardiomegaly without evidence of acute cardiopulmonary process. Bakari Amado MD Objective Remarks GENERAL: This is a well-nourished, well-developed patient, in no apparent distress. CARDIOVASCULAR: Regular rate and regular rhythm without murmurs, gallops, or rubs. RESPIRATORY: Clear to auscultation. Breath sounds equal bilaterally. No wheezes , rales, or rhonchi. GASTROINTESTINAL: Abdomen soft, non-tender, distended. Normal, active bowel sounds MUSCULOSKELETAL: Extremities with bilateral pedal edema. NEURO: Alert & Oriented x4 to person, place, time, situation. Moves all ext x4 Procedures paracentesis permacath placement Medications and IVs Current Medications IV Flush (NS Flush) 2 ml UNSCH PRN FLUSH FLUSH AFTER USING IV ACCESS; Start at 23:15 IV Flush (NS Flush) 2 ml BID FLUSH Last administered on 01/04/17 07:59; Start 12/26/16 at 09:00 Heparin Sodium (Porcine) (Heparin Inj) 5,000 units Q8H SQ Last administered on 12/28/16 09:23; Start 12/26/16 at 00:00; Stop 12/28/16 at 14:41; Status DC Naloxone HCl (Narcan Inj) 0.4 mg UNSCH PRN IV SEE LABEL COMMENTS; Start at 23:15 Acetaminophen (Tylenol) 650 mg Q4H PRN PO headaches/pain/ fever >101 Last administered on 12/28/16 05:54; Start 12/26/16 at 05:15 Diphenhydramine HCl (Benadryl) 25 mg ONCE ONCE PO Last administered on 05:32; Start 12/26/16 at 05:15; Stop 12/26/16 at 05:16; Status DC Furosemide (Lasix) 40 mg DAILY PO ; Start 12/26/16 at 09:00; Stop 12/26/16 at 11: 08; Status DC Mycophenolate Mofetil (Cellcept) 500 mg BID@,18 PO Last administered on 05:06; Start 12/26/16 at 18:00; Stop 12/27/16 at 11:02; Status DC Nifedipine (Procardia Xl) 60 mg DAILY PO Last administered on 12/31/16 09:25; Start 12/26/16 at 09:00; Stop 01/01/17 at 09:55; Status DC Pantoprazole Sodium (Protonix) 40 mg DAILY PO ; Start 12/26/16 at 09:00; Stop 12/26/16 at 11:08; Status DC Prednisone (Deltasone) 20 mg DAILY PO ; Start 12/26/16 at 09:00; Stop 12/26/16 at 09:00; Status DC Alprazolam (Xanax) 0.125 mg Q6H PRN PO ANXIETY Last administered on 12/27/16 16 :34; Start 12/26/16 at 07:45; Stop 12/28/16 at 14:45; Status DC Miscellaneous (Pill Splitter) 1 ea UNSCH PRN OTHER SEE LABEL COMMENTS Last administered on 12/30/16 17:40; Start 12/26/16 at 08:00 Prednisone (Deltasone) 40 mg DAILY PO ; Start 12/26/16 at 09:00; Stop 12/26/16 at 11:08; Status DC Prednisone (Deltasone) 60 mg DAILY PO Last administered on 12/28/16 09:23; Start 12/27/16 at 09:00; Stop 12/28/16 at 20:05; Status DC Prednisone (Deltasone) 20 mg ONCE ONCE PO Last administered on 12/26/16 12:30 ; Start 12/26/16 at 11:15; Stop 12/26/16 at 11:16; Status DC Bumetanide (Bumex Inj) 2 mg BID@18 IV PUSH Last administered on 12/28/16 09: 22; Start 12/26/16 at 18:00; Stop 12/28/16 at 11:20; Status DC Diphenhydramine HCl (Benadryl) 25 mg HS PRN PO insomnia Last administered on 23:41; Start 12/27/16 at 01:45; Stop 12/28/16 at 14:46; Status DC Mycophenolate Mofetil (Cellcept) 1,000 mg BID@06,18 PO Last administered on 12/28 18:21; Start 12/27/16 at 18:00; Stop 12/28/16 at 20:05; Status DC Acetaminophen/ Hydrocodone Bitart ([place] 5-325 Mg) 1 tab Q6H PRN PO PAIN NOT RELIEVED BY TYLENOL Last administered on 12/28/16 11:37; Start 12/27/16 at 16:00 ; Stop 12/28/16 at 14:46; Status DC Albuterol Sulfate 2.5 mg 2.5 mg Q6HR NEB PRN INH SHORTNESS OF BREATH Last administered on 12/27/16 20:12; Start 12/27/16 at 16:00 Cefepime HCl/ Sodium Chloride (Maxipime Inj/NS Inj) 100 ml @ 200 mls/hr Q24H IV Last administered on 01/04/17 03:48; Start 12/28/16 at 05:00; Stop 01/09/17 at 08:00 Morphine Sulfate 2 mg 2 mg Q3H PRN IV PUSH breakthrough pain Last administered on 12/28/16 09:23; Start 12/28/16 at 05:30; Stop 12/28/16 at 14:46; Status DC Metronidazole 100 ml @ 100 mls/hr Q6H IV Last administered on 01/01/17 06:33; Start 12/28/16 at 06:00; Stop 01/01/17 at 08:11; Status DC Vancomycin HCl/ Sodium Chloride (Vancomycin Inj/ NS 500 ml Inj) 515 ml @ 257.5 mls/ hr ONCE ONCE IV Last administered on 12/28/16 08:40; Start 12/28/16 at 06: 45; Stop 12/28/16 at 08:44; Status DC Sevelamer Carbonate 800 mg 800 mg TIDAC PO Last administered on 01/01/17 08:16 ; Start 12/28/16 at 12:00; Stop 01/02/17 at 09:10; Status DC Bumetanide 100 ml @ 8 mls/hr CONTINUOUS IV Last administered on 12/28/16 15:11 ; Start 12/28/16 at 13:30; Stop 12/28/16 at 17:24; Status DC Heparin Sodium/ Dextrose (Heparin-D5W Inj) 250 ml @ 0 mls/hr TITRATE IV Last administered on 12/28/16 15:12; Start 12/28/16 at 14:45; Stop 12/28/16 at 21:51; Status DC Hydromorphone HCl (Dilaudid Pf Inj) 0.5 mg Q4H PRN IV PUSH pain 7-10 or not taking po Last administered on 01/04/17 03:48; Start 12/28/16 at 14:45 Oxycodone HCl (Roxicodone) 5 mg Q4H PRN PO pain 3-6 Last administered on 18:22; Start 12/28/16 at 14:45 Pantoprazole Sodium (Protonix Inj) 40 mg Q24H IV PUSH Last administered on 15:00; Start 12/28/16 at 15:00; Stop 01/01/17 at 08:12; Status DC Bumetanide (Bumetanide) 2 mg BID@09,18 PO Last administered on 01/04/17 07:58 ; Start 12/28/16 at 18:00 Mycophenolate Mofetil (Cellcept) 500 mg BID@06,18 PO Last administered on 05:22; Start 12/29/16 at 06:00; Stop 01/01/17 at 09:15; Status DC Prednisone 40 mg 40 mg DAILY PO Last administered on 01/01/17 08:15; Start 12/29 at 09:00; Stop 01/01/17 at 09:52; Status DC Heparin Sodium/ Dextrose (Heparin-D5W Inj) 250 ml @ 0 mls/hr TITRATE IV Last administered on 12/30/16 01:58; Start 12/28/16 at 22:00; Stop 12/30/16 at 12:16; Status DC Alprazolam (Xanax) 0.5 mg NOW PO Last administered on 12/28/16 23:22; Start 12/28/16 at 23:15; Stop 12/29/16 at 00:45; Status DC Ondansetron HCl (Zofran Inj) 4 mg Q6H PRN IV PUSH NAUSEA Last administered on 23:40; Start 12/29/16 at 09:30 Alprazolam (Xanax) 0.125 mg Q12HR PRN PO ANXIETY Last administered on 12/30/16 01:39; Start 12/29/16 at 13:00; Stop 12/30/16 at 07:52; Status DC Alprazolam (Xanax) 0.125 mg Q6HR PRN PO ANXIETY Last administered on 01/04/17 03:48; Start 12/30/16 at 12:00 Miscellaneous (Pill Splitter) 1 ea UNSCH PRN OTHER SEE LABEL COMMENTS; Start at 08:00 Albumin Human (Albumin 25% Inj) 12.5 gm Q12H IV Last administered on 01/04/17 07:58; Start 12/30/16 at 20:00 Midazolam HCl (Versed Inj) 5 mg STK-MED ONCE .ROUTE Last administered on 10:57; Start 12/31/16 at 10:57; Stop 12/31/16 at 10:58; Status DC Fentanyl Citrate (fentaNYL INJ) 250 mcg STK-MED ONCE .ROUTE Last administered on 12/31/16 10:57; Start 12/31/16 at 10:57; Stop 12/31/16 at 10:58; Status DC Vancomycin HCl (Vancomycin Inj) 1,000 mg STK-MED ONCE .ROUTE Last administered on 12/31/16 10:58; Start 12/31/16 at 10:58; Stop 12/31/16 at 10:59; Status DC Heparin Sodium (Porcine) (*HEPARIN INJ Periprocedural ONLY) 10,000 units STK- MED ONCE .ROUTE Last administered on 12/31/16 11:40; Start 12/31/16 at 11:19; Stop 12/31/16 at 11:20; Status DC Lidocaine/ Epinephrine 20 ml 20 ml STK-MED ONCE .ROUTE Last administered on 12/31 11:25; Start 12/31/16 at 11:19; Stop 12/31/16 at 11:20; Status DC Sodium Chloride (NS 1000 ml Inj) 1,000 ml @ 0 mls/hr Q0M PRN IV For Prime & Rinse Back Last administered on 12/31/16 17:02; Start 12/31/16 at 11:44 Heparin Sodium (Porcine) 8000 units 8,000 units UNSCH PRN IVF WITH DIALYSIS; Start 12/31/16 at 11:45 Sodium Chloride 1,000 ml @ 200 mls/hr Q5H PRN IV WITH DIALYSIS; Start 12/31/16 at 11:44 Sodium Chloride (NS 1000 ml Inj) 1,000 ml @ 0 mls/hr Q0M PRN IV WITH DIALYSIS Last administered on 12/31/16 17:03; Start 12/31/16 at 11:44 Mannitol (Mannitol Inj) 12.5 gm UNSCH PRN IV WITH DIALYSIS; Start 12/31/16 at 11 :45 Albumin Human (Albumin 25% Inj) 25 gm UNSCH PRN IV WITH DIALYSIS; Start at 11:45 IV Flush (NS Flush) 5 ml UNSCH PRN IVF WITH DIALYSIS Last administered on 17:01; Start 12/31/16 at 11:45 Heparin Sodium (Porcine) (Heparin Inj) UNSCH PRN .XX WITH DIALYSIS Last administered on 01/01/17 18:18; Start 12/31/16 at 11:45 Gentamicin Sulfate (Gentamicin (Dialysis) Inj) 20 mg UNSCH PRN IV WITH DIALYSIS Last administered on 01/01/17 18:18; Start 12/31/16 at 11:45 Ondansetron HCl (Zofran Inj) 4 mg UNSCH PRN IV WITH DIALYSIS Last administered on 01/02/17 16:44; Start 12/31/16 at 11:45 Acetaminophen (Tylenol) 650 mg UNSCH PRN PO for headach, pain, temp > 101F; Start 12/31/16 at 11:45 Diphenhydramine HCl (Benadryl) 25 mg UNSCH PRN PO for hives/itching/anaphylaxis ; Start 12/31/16 at 11:45 Nitroglycerin (Nitrostat Sl) 0.4 mg UNSCH PRN SL CHEST PAIN; Start 12/31/16 at 11:45 Clonidine (Catapres) 0.1 mg UNSCH PRN PO for BP > 180/100 X 2 readings; Start 12/31/16 at 11:45 Gelatin (Gelfoam 12 Mm/7 Mm Top) 1 foam UNSCH PRN TOP SEE LABEL COMMENTS; Start 12/31/16 at 11:45 Epoetin [place] (Epogen Inj) 10,000 units UNSCH PRN IV WITH DIALYSIS Last administered on 12/31/16 17:01; Start 12/31/16 at 11:45 Pantoprazole Sodium (Protonix) 40 mg DAILY PO Last administered on 01/04/17 07 :58; Start 01/01/17 at 09:00 Prednisone (Deltasone) 30 mg DAILY PO Last administered on 01/04/17 07:59; Start 01/02/17 at 09:00 Heparin Sodium (Porcine) (Heparin Inj) 5,000 units Q12HR SQ ; Start 01/02/17 at 21:00; Status Hold Sevelamer Carbonate (Renvela) 1,600 mg TIDAC PO Last administered on 01/04/17 07:58; Start 01/02/17 at 12:00 A/P Assessment and Plan A/P IgA nephropathy Acute on chronic renal failure -on prednisone taper -Cellecept was discontinued. -started on HD (TTS schedule)- s/p perma-cath placement -vascular surgery consulted for AV graft placement; scheduled for next Saturday. -monitor renal function Nephrology following:Dr. Mayer Alcoholic cirrhosis Acute abdominal pain Possible SBP Diagnostic paracentesis done;fluid culture negative so far. -continue antibiotic till 01/09/17 per GI -evaluated by GI Thrombocytopeniasecondary to cirrhosis Possible portal vein thrombosis Leukocytosis Sepsis Possible spontaneous bacterial peritonitis -will continue antibiotic as noted above -no anticoagulation per GI -surgery signed off- f/u as outpatient anemia of chronic disease stool negative for blood. on epogen per nephrology will monitor H/h periodically Prophylaxis: GI Prophylaxis Protonix DVT Prophylaxis -- SCDs -no chemical prophylaxis due to thrombocytopenia. Sachi Medeiros MD Jan 04, 2017 08:13
[2017-01-04 08:36] LABS: INDIRECT BILIRUBIN 0.5 MG/DL (0.0-0.8); TOTAL BILIRUBIN ADULT 0.7 MG/DL (0.2-1.0)
[2017-01-04 08:45] LABS: BICARBONATE 30.2 MEQ/L (21.0-32.0); POTASSIUM 4.1 MEQ/L (3.5-5.1)
[2017-01-04 08:58] LABS: REVIEW FLAG FINAL
--- NOTE | 2017-01-04 13:16 | HHI.NPPN ---
Subjective Complaints: Obesity General Problems: Edema Renal Failure: Chronic, Acute Interval History 5L UF yesterday. Sitting up, edema improved. (Helen Gaspar) Review of Systems General Constitutional: Fatigue (Helen Gaspar) Cardiovascular Cardiac: Edema (Helen Gaspar) Objective Data Data 01/03/17 01/04/17 19:00 07:00 Intake Total 960 ml 1181 ml Output Total 5100 ml 200 ml Balance -4140 ml 981 ml Intake Oral 960 ml 960 ml IV Total 221 ml Output Urine Total 100 ml 200 ml Hemodialysis 5000 ml # Bowel Movements 1 Vital Signs Date Time Temp Pulse Resp B/P Pulse Ox O2 Delivery O2 Flow Rate FiO2 01/04/17 12:00 97.9 84 18 154/78 96 01/04/17 08:00 97.2 106 20 147/80 97 01/04/17 04:00 97.6 78 17 150/82 97 01/04/17 00:15 18 01/04/17 00:00 97.6 86 17 139/71 98 01/03/17 22:21 92 01/03/17 20:00 97.0 87 18 141/83 96 01/03/17 16:00 97.1 88 18 120/64 94 (Helen Gaspar) -: 01/04/17 0730 01/04/17 0730 Tubes & Lines: Perma-Cath (Helen Gaspar) Physical Exam General Appearance: Well Developed, Well Nourished, No Acute Distress, Comfortable, Obese (Helen Gaspar) Throat Throat Exam: Oral Mucosa [place] & Moist (Helen Gaspar) Pulmonary Resp Exam: Breath Sounds Equal, No Distress, Decreased Bases (Helen Gaspar) Cardiology CV Exam: Regular, Normal Sinus Rhythm (Helen Gaspar) Gastrointestinal/Abdomen GI Exam: Soft, Non-Tender (Helen Gaspar) Musculoskeletal MS Exam: Joints Intact, Normal Tone (Helen Gaspar) Integumentary Skin Exam: Clear, Warm, Dry, Intact (Helen Gaspar) Extremeties Extremities Exam: Pedal Pulses Palpable, Moderate Edema, Pitting Edema, Dependent Edema (Helen Gaspar) Neurologic Neuro Exam: Alert, Awake, Oriented, Speech Clear, Moving All Extremities ( Helen Gaspar) Psychiatric Psych Exam: Appropriate Responses (Helen Gaspar) Assessment/Plan Discussed Condition With: Patient Assessment Summary: Fluid/Volume Overload, Hypertension, End Stage Renal Disease Problem List: (1) ESRD (end stage renal disease) on dialysis Plan: due to Iga nephropathy with RPGN he still makes some urine, but will be dialysis dependent HD T-Th-Sat, 5L UF yesterday will dialyze tomorrow and convert to M-W-F as he is to have surgery on Saturday off cellcept stopped, on prednisone taper s/p permcath placement Dr. Hines, vascular, following for AVF placement Saturday;; protect left arm from IV/BP measurements Nifedipine was stopped monitor phosphorus intermittently; Renvela dose increased renal panel in am he is having insurance issues, will be admitted until able to be in transitional HD program goal is to go to [facility] when approved (2) RPGN (rapidly progressive glomerulonephritis) Plan: see above (3) IgA nephropathy determined by renal biopsy Plan: change immunosuppressive medications as above monitor renal function management as above he has progressed to ESRD (4) Thrombocytopenia Plan: improving, it was thought cirrhosis may have been the etiology no active bleeding (5) Leukocytosis Plan: GI signed off continue Abx until 01/09 AVF surgery after infection clears monitor clinically , carefully monitor drug levels when appropriate (Helen Gaspar) Plan patient was seen and examined. Continue dialysis, will be MWF from next week. Needs outpatient dialysis arrangements. (Fredo Mayer MD) Helen Gaspar Jan 04, 2017 13:16 Fredo Mayer MD Jan 04, 2017 15:26
[2017-01-04] MEDS: ONDANSETRON HCL 4 MG/2 ML VIAL IV PRN (21:23)
[2017-01-05] VITALS (7 sets, daily range): BP systolic 115–151; BP diastolic 75–95; PULSE 77–101; RESP 17–22; TEMP 96.4–99; O2SAT 97–99
[2017-01-05] MEDS: ALPRAZolam 0.25 MG TAB PO PRN ×2 (04:33→19:15)
[2017-01-05] MEDS: CEFEPIME INJ 1,000 MG in SODIUM CHLORIDE 0.9% INJ 100 ML IV SCH (04:34)
[2017-01-05] MEDS: PANTOPRAZOLE SOD 40 MG DELAYED RELEASE TAB PO SCH (07:15)
[2017-01-05] MEDS: SEVELAMER CARBONATE 800 MG TAB PO SCH ×4 (07:15→16:16)
[2017-01-05] MEDS: BUMETANIDE 1 MG TAB PO SCH ×2 (07:15→17:29)
[2017-01-05] MEDS: predniSONE 10 MG TAB PO SCH (07:15)
[2017-01-05] MEDS: SODIUM CHLORIDE 0.9% FLUSH 5 ML FLUSH FLUSH SCH ×2 (07:16→20:04)
[2017-01-05] MEDS: ALBUMIN HUMAN 25% 12.5 GM/50 ML BAGP IV SCH ×2 (07:16→20:04)
--- NOTE | 2017-01-05 10:00 | HHI.PR ---
Subjective Remarks having his HD today. has on and off anxiety. in no acute distress. denies pain. Objective Vitals Vital Signs Date Time Temp Pulse Resp B/P Pulse Ox O2 Delivery O2 Flow Rate FiO2 01/05/17 04:00 97.3 77 17 151/90 98 01/05/17 03:18 17 01/05/17 00:00 96.8 81 18 144/91 98 01/04/17 20:57 18 01/04/17 20:20 84 01/04/17 20:00 97.3 90 18 169/86 96 01/04/17 16:00 97.4 86 22 142/79 97 01/04/17 12:00 97.9 84 18 154/78 96 I/O 01/04/17 01/04/17 01/04/17 01/05/17 01/05/17 01/05/17 07:00 15:00 23:00 07:00 15:00 23:00 Intake Total 601 ml 960 ml 1080 ml 720 ml Output Total 100 ml 700 ml 250 ml 200 ml Balance 501 ml 260 ml 830 ml 520 ml Intake Oral 480 ml 960 ml 1080 ml 720 ml IV Total 121 ml Output Urine Total 100 ml 700 ml 250 ml 200 ml # Bowel Movements 3 1 Result Diagram: 01/04/1730 01/04/1730 Imaging Last Impressions Catheter Placement X-Ray 12/31/16 0951 Signed Impressions: Service Date/Time: Saturday, December 31, 2016 11:21 - CONCLUSION: Uncomplicated PermaCath placement as above. Bakari Amado MD Abdomen/Pelvis CT 12/28/16 0000 Signed Impressions: Service Date/Time: Wednesday, December 28, 2016 03:28 - CONCLUSION: Liver cirrhosis and stigmata of portal hypertension. Abundant ascites. Small bilateral pleural effusions and left base pneumonia. Derek Krause MD Abdomen Ultrasound 12/28/16 0000 Signed Impressions: Service Date/Time: Wednesday, December 28, 2016 06:43 - CONCLUSION: 1. Flow within the main portal vein is not confirmed with certainty which raises the possibility of portal vein thrombus. CT or MRI of the abdomen with contrast may be helpful for father evaluation of this finding. 2. Small heterogeneous nodular liver consistent with cirrhosis. 3. Ascites. 4. Splenomegaly. 5. Distended thick walled gallbladder with pericholecystic fluid and possible stone or polyp in the neck. Clinical correlation is recommended to rule out acute cholecystitis. 6. Poor visualization of the pancreas and right kidney due to shadowing bowel gas. Veto Cortez MD Chest X-Ray 12/25/[id number] Signed Impressions: Service Date/Time: Sunday, December 25, 2016 21:45 - CONCLUSION: Cardiomegaly without evidence of acute cardiopulmonary process. Bakari Amado MD Objective Remarks GENERAL: This is a well-nourished, well-developed patient, in no apparent distress. CARDIOVASCULAR: Regular rate and regular rhythm without murmurs, gallops, or rubs. RESPIRATORY: Clear to auscultation. Breath sounds equal bilaterally. No wheezes , rales, or rhonchi. GASTROINTESTINAL: Abdomen soft, non-tender, distended. Normal, active bowel sounds MUSCULOSKELETAL: Extremities with bilateral pedal edema. NEURO: Alert & Oriented x4 to person, place, time, situation. Moves all ext x4 Procedures paracentesis permacath placement Medications and IVs Current Medications IV Flush (NS Flush) 2 ml UNSCH PRN FLUSH FLUSH AFTER USING IV ACCESS; Start at 23:15 IV Flush (NS Flush) 2 ml BID FLUSH Last administered on 01/05/17 07:16; Start 12/26/16 at 09:00 Heparin Sodium (Porcine) (Heparin Inj) 5,000 units Q8H SQ Last administered on 12/28/16 09:23; Start 12/26/16 at 00:00; Stop 12/28/16 at 14:41; Status DC Naloxone HCl (Narcan Inj) 0.4 mg UNSCH PRN IV SEE LABEL COMMENTS; Start at 23:15 Acetaminophen (Tylenol) 650 mg Q4H PRN PO headaches/pain/ fever >101 Last administered on 12/28/16 05:54; Start 12/26/16 at 05:15 Diphenhydramine HCl (Benadryl) 25 mg ONCE ONCE PO Last administered on 05:32; Start 12/26/16 at 05:15; Stop 12/26/16 at 05:16; Status DC Furosemide (Lasix) 40 mg DAILY PO ; Start 12/26/16 at 09:00; Stop 12/26/16 at 11: 08; Status DC Mycophenolate Mofetil (Cellcept) 500 mg BID@,18 PO Last administered on 05:06; Start 12/26/16 at 18:00; Stop 12/27/16 at 11:02; Status DC Nifedipine (Procardia Xl) 60 mg DAILY PO Last administered on 12/31/16 09:25; Start 12/26/16 at 09:00; Stop 01/01/17 at 09:55; Status DC Pantoprazole Sodium (Protonix) 40 mg DAILY PO ; Start 12/26/16 at 09:00; Stop 12/26/16 at 11:08; Status DC Prednisone (Deltasone) 20 mg DAILY PO ; Start 12/26/16 at 09:00; Stop 12/26/16 at 09:00; Status DC Alprazolam (Xanax) 0.125 mg Q6H PRN PO ANXIETY Last administered on 12/27/16 16 :34; Start 12/26/16 at 07:45; Stop 12/28/16 at 14:45; Status DC Miscellaneous (Pill Splitter) 1 ea UNSCH PRN OTHER SEE LABEL COMMENTS Last administered on 12/30/16 17:40; Start 12/26/16 at 08:00 Prednisone (Deltasone) 40 mg DAILY PO ; Start 12/26/16 at 09:00; Stop 12/26/16 at 11:08; Status DC Prednisone (Deltasone) 60 mg DAILY PO Last administered on 12/28/16 09:23; Start 12/27/16 at 09:00; Stop 12/28/16 at 20:05; Status DC Prednisone (Deltasone) 20 mg ONCE ONCE PO Last administered on 12/26/16 12:30 ; Start 12/26/16 at 11:15; Stop 12/26/16 at 11:16; Status DC Bumetanide (Bumex Inj) 2 mg BID@18 IV PUSH Last administered on 12/28/16 09: 22; Start 12/26/16 at 18:00; Stop 12/28/16 at 11:20; Status DC Diphenhydramine HCl (Benadryl) 25 mg HS PRN PO insomnia Last administered on 23:41; Start 12/27/16 at 01:45; Stop 12/28/16 at 14:46; Status DC Mycophenolate Mofetil (Cellcept) 1,000 mg BID@06,18 PO Last administered on 12/28 18:21; Start 12/27/16 at 18:00; Stop 12/28/16 at 20:05; Status DC Acetaminophen/ Hydrocodone Bitart ([place]inn 5-325 Mg) 1 tab Q6H PRN PO PAIN NOT RELIEVED BY TYLENOL Last administered on 12/28/16 11:37; Start 12/27/16 at 16:00 ; Stop 12/28/16 at 14:46; Status DC Albuterol Sulfate 2.5 mg 2.5 mg Q6HR NEB PRN INH SHORTNESS OF BREATH Last administered on 12/27/16 20:12; Start 12/27/16 at 16:00 Cefepime HCl/ Sodium Chloride (Maxipime Inj/NS Inj) 100 ml @ 200 mls/hr Q24H IV Last administered on 01/05/17 04:34; Start 12/28/16 at 05:00; Stop 01/09/17 at 08:00 Morphine Sulfate 2 mg 2 mg Q3H PRN IV PUSH breakthrough pain Last administered on 12/28/16 09:23; Start 12/28/16 at 05:30; Stop 12/28/16 at 14:46; Status DC Metronidazole 100 ml @ 100 mls/hr Q6H IV Last administered on 01/01/17 06:33; Start 12/28/16 at 06:00; Stop 01/01/17 at 08:11; Status DC Vancomycin HCl/ Sodium Chloride (Vancomycin Inj/ NS 500 ml Inj) 515 ml @ 257.5 mls/ hr ONCE ONCE IV Last administered on 12/28/16 08:40; Start 12/28/16 at 06: 45; Stop 12/28/16 at 08:44; Status DC Sevelamer Carbonate 800 mg 800 mg TIDAC PO Last administered on 01/01/17 08:16 ; Start 12/28/16 at 12:00; Stop 01/02/17 at 09:10; Status DC Bumetanide 100 ml @ 8 mls/hr CONTINUOUS IV Last administered on 12/28/16 15:11 ; Start 12/28/16 at 13:30; Stop 12/28/16 at 17:24; Status DC Heparin Sodium/ Dextrose (Heparin-D5W Inj) 250 ml @ 0 mls/hr TITRATE IV Last administered on 12/28/16 15:12; Start 12/28/16 at 14:45; Stop 12/28/16 at 21:51; Status DC Hydromorphone HCl (Dilaudid Pf Inj) 0.5 mg Q4H PRN IV PUSH pain 7-10 or not taking po Last administered on 01/04/17 03:48; Start 12/28/16 at 14:45; Status Hold Oxycodone HCl (Roxicodone) 5 mg Q4H PRN PO pain 3-6 Last administered on 19:57; Start 12/28/16 at 14:45 Pantoprazole Sodium (Protonix Inj) 40 mg Q24H IV PUSH Last administered on 15:00; Start 12/28/16 at 15:00; Stop 01/01/17 at 08:12; Status DC Bumetanide (Bumetanide) 2 mg BID@09,18 PO Last administered on 01/05/17 07:15 ; Start 12/28/16 at 18:00 Mycophenolate Mofetil (Cellcept) 500 mg BID@06,18 PO Last administered on 05:22; Start 12/29/16 at 06:00; Stop 01/01/17 at 09:15; Status DC Prednisone 40 mg 40 mg DAILY PO Last administered on 01/01/17 08:15; Start 12/29 at 09:00; Stop 01/01/17 at 09:52; Status DC Heparin Sodium/ Dextrose (Heparin-D5W Inj) 250 ml @ 0 mls/hr TITRATE IV Last administered on 12/30/16 01:58; Start 12/28/16 at 22:00; Stop 12/30/16 at 12:16; Status DC Alprazolam (Xanax) 0.5 mg NOW PO Last administered on 12/28/16 23:22; Start 12/28/16 at 23:15; Stop 12/29/16 at 00:45; Status DC Ondansetron HCl (Zofran Inj) 4 mg Q6H PRN IV PUSH NAUSEA Last administered on 23:40; Start 12/29/16 at 09:30 Alprazolam (Xanax) 0.125 mg Q12HR PRN PO ANXIETY Last administered on 12/30/16 01:39; Start 12/29/16 at 13:00; Stop 12/30/16 at 07:52; Status DC Alprazolam (Xanax) 0.125 mg Q6HR PRN PO ANXIETY Last administered on 01/05/17 04:33; Start 12/30/16 at 12:00 Miscellaneous (Pill Splitter) 1 ea UNSCH PRN OTHER SEE LABEL COMMENTS; Start at 08:00 Albumin Human (Albumin 25% Inj) 12.5 gm Q12H IV Last administered on 01/05/17 07:16; Start 12/30/16 at 20:00 Midazolam HCl (Versed Inj) 5 mg STK-MED ONCE .ROUTE Last administered on 10:57; Start 12/31/16 at 10:57; Stop 12/31/16 at 10:58; Status DC Fentanyl Citrate (fentaNYL INJ) 250 mcg STK-MED ONCE .ROUTE Last administered on 12/31/16 10:57; Start 12/31/16 at 10:57; Stop 12/31/16 at 10:58; Status DC Vancomycin HCl (Vancomycin Inj) 1,000 mg STK-MED ONCE .ROUTE Last administered on 12/31/16 10:58; Start 12/31/16 at 10:58; Stop 12/31/16 at 10:59; Status DC Heparin Sodium (Porcine) (*HEPARIN INJ Periprocedural ONLY) 10,000 units STK- MED ONCE .ROUTE Last administered on 12/31/16 11:40; Start 12/31/16 at 11:19; Stop 12/31/16 at 11:20; Status DC Lidocaine/ Epinephrine 20 ml 20 ml STK-MED ONCE .ROUTE Last administered on 12/31 11:25; Start 12/31/16 at 11:19; Stop 12/31/16 at 11:20; Status DC Sodium Chloride (NS 1000 ml Inj) 1,000 ml @ 0 mls/hr Q0M PRN IV For Prime & Rinse Back Last administered on 12/31/16 17:02; Start 12/31/16 at 11:44 Heparin Sodium (Porcine) 8000 units 8,000 units UNSCH PRN IVF WITH DIALYSIS; Start 12/31/16 at 11:45 Sodium Chloride 1,000 ml @ 200 mls/hr Q5H PRN IV WITH DIALYSIS; Start 12/31/16 at 11:44 Sodium Chloride (NS 1000 ml Inj) 1,000 ml @ 0 mls/hr Q0M PRN IV WITH DIALYSIS Last administered on 12/31/16 17:03; Start 12/31/16 at 11:44 Mannitol (Mannitol Inj) 12.5 gm UNSCH PRN IV WITH DIALYSIS; Start 12/31/16 at 11 :45 Albumin Human (Albumin 25% Inj) 25 gm UNSCH PRN IV WITH DIALYSIS; Start at 11:45 IV Flush (NS Flush) 5 ml UNSCH PRN IVF WITH DIALYSIS Last administered on 17:01; Start 12/31/16 at 11:45 Heparin Sodium (Porcine) (Heparin Inj) UNSCH PRN .XX WITH DIALYSIS Last administered on 01/01/17 18:18; Start 12/31/16 at 11:45 Gentamicin Sulfate (Gentamicin (Dialysis) Inj) 20 mg UNSCH PRN IV WITH DIALYSIS Last administered on 01/01/17 18:18; Start 12/31/16 at 11:45 Ondansetron HCl (Zofran Inj) 4 mg UNSCH PRN IV WITH DIALYSIS Last administered on 01/04/17 21:23; Start 12/31/16 at 11:45 Acetaminophen (Tylenol) 650 mg UNSCH PRN PO for headach, pain, temp > 101F; Start 12/31/16 at 11:45 Diphenhydramine HCl (Benadryl) 25 mg UNSCH PRN PO for hives/itching/anaphylaxis ; Start 12/31/16 at 11:45 Nitroglycerin (Nitrostat Sl) 0.4 mg UNSCH PRN SL CHEST PAIN; Start 12/31/16 at 11:45 Clonidine (Catapres) 0.1 mg UNSCH PRN PO for BP > 180/100 X 2 readings; Start 12/31/16 at 11:45 Gelatin (Gelfoam 12 Mm/7 Mm Top) 1 foam UNSCH PRN TOP SEE LABEL COMMENTS; Start 12/31/16 at 11:45 Epoetin [place] (Epogen Inj) 10,000 units UNSCH PRN IV WITH DIALYSIS Last administered on 12/31/16 17:01; Start 12/31/16 at 11:45 Pantoprazole Sodium (Protonix) 40 mg DAILY PO Last administered on 01/05/17 07 :15; Start 01/01/17 at 09:00 Prednisone (Deltasone) 30 mg DAILY PO Last administered on 01/05/17 07:15; Start 01/02/17 at 09:00 Heparin Sodium (Porcine) (Heparin Inj) 5,000 units Q12HR SQ ; Start 01/02/17 at 21:00; Status Hold Sevelamer Carbonate (Renvela) 1,600 mg TIDAC PO Last administered on 01/05/17 07:15; Start 01/02/17 at 12:00 Oxycodone HCl (Roxicodone) 10 mg Q4H PRN PO PAIN 7-10 Last administered on 01/05 06:17; Start 01/04/17 at 09:00 A/P Assessment and Plan A/P IgA nephropathy Acute on chronic renal failure -on prednisone taper -Cellecept was discontinued. -started on HD (will be switched to MWF schedule)- s/p perma-cath placement -vascular surgery consulted for AV graft placement; scheduled for Saturday. -monitor renal function Nephrology following:Dr. Mayer Alcoholic cirrhosis Acute abdominal pain Possible SBP Diagnostic paracentesis done;fluid culture negative so far. 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 on epogen per nephrology will monitor H/h periodically anxiety; xanax as needed. Prophylaxis: GI Prophylaxis Protonix DVT Prophylaxis -- SCDs -no chemical prophylaxis due to thrombocytopenia. Sachi Medeiros MD Jan 05, 2017 10:00
[2017-01-05] MEDS: SODIUM CHLOR 0.9% 1000 ML INJ 1,000 ML IV PRN (10:54)
[2017-01-05] MEDS: HEPARIN SODIUM - IV 10,000 UNITS/10 ML VIAL PRN (10:55)
[2017-01-05] MEDS: GENTAMICIN SULFATE (DIALYSIS USE ONLY) 20 MG/2 ML VIAL IV PRN (10:55)
[2017-01-05] MEDS: EPOETIN ALFA 10,000 UNITS/ML VIAL IV PRN (10:56)
--- NOTE | 2017-01-05 10:59 | HHI.NPPN ---
Subjective Complaints: Obesity General Problems: Edema Renal Failure: Chronic, Acute Additional Remarks Patient seen on dialysis, tolerating HD well. Counseled on fluid restriction. Review of Systems General Constitutional: Fatigue Cardiovascular Cardiac: Edema Objective Data Data 01/04/17 01/05/17 19:00 07:00 Intake Total 1320 ml 1440 ml Output Total 800 ml 350 ml Balance 520 ml 1090 ml Intake Oral 1320 ml 1440 ml Output Urine Total 800 ml 350 ml # Bowel Movements 3 1 Vital Signs Date Time Temp Pulse Resp B/P Pulse Ox O2 Delivery O2 Flow Rate FiO2 01/05/17 07:50 96.4 85 20 143/95 97 01/05/17 04:00 97.3 77 17 151/90 98 01/05/17 03:18 17 01/05/17 00:00 96.8 81 18 144/91 98 01/04/17 20:57 18 01/04/17 20:20 84 01/04/17 20:00 97.3 90 18 169/86 96 01/04/17 16:00 97.4 86 22 142/79 97 01/04/17 12:00 97.9 84 18 154/78 96 -: 01/04/17 0730 01/04/17 0730 Tubes & Lines: Perma-Cath Physical Exam General Appearance: Well Developed, Well Nourished, No Acute Distress, Comfortable, Obese Throat Throat Exam: Oral Mucosa [place] & Moist Pulmonary Resp Exam: Breath Sounds Equal, No Distress, Decreased Bases Cardiology CV Exam: Regular, Normal Sinus Rhythm Gastrointestinal/Abdomen GI Exam: Soft, Non-Tender Musculoskeletal MS Exam: Joints Intact, Normal Tone Integumentary Skin Exam: Clear, Warm, Dry, Intact Extremeties Extremities Exam: Pedal Pulses Palpable, Moderate Edema, Pitting Edema, Dependent Edema Neurologic Neuro Exam: Alert, Awake, Oriented, Speech Clear, Moving All Extremities Psychiatric Psych Exam: Appropriate Responses Assessment/Plan Discussed Condition With: Patient Assessment Summary: Fluid/Volume Overload, Hypertension, End Stage Renal Disease Problem List: (1) Acute renal failure Plan: in a pt with 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 Hines, vascular, following for AVF placement next week; protect left arm from IV/BP measurements Will do HD today, then continue with MWF HD, HD Saturday. he is having insurance issues, will be admitted until able to be in transitional HD program goal is to go [facility] when approved (2) RPGN (rapidly progressive glomerulonephritis) Plan: see above (3) IgA nephropathy determined by renal biopsy Plan: change immunosuppressive medications as above monitor renal function management as above he has progressed to ESRD (4) Thrombocytopenia Plan: improving, it was thought cirrhosis may have been the etiology no active bleeding (5) Leukocytosis Plan: GI signed off continue Abx until 01/09 AVF surgery after infection clears monitor clinically , carefully monitor drug levels when appropriate Plan Problem Qualifiers (1) Acute renal failure: Qualified Code: N17.9 - Acute renal failure, unspecified acute renal failure type Horace Adrian MD Jan 05, 2017 10:59
[2017-01-06] VITALS: BP 142/76; PULSE 87; RESP 21; TEMP 97; O2SAT 98
[2017-01-06] MEDS: ALPRAZolam 0.25 MG TAB PO PRN ×4 (01:09→20:27)
[2017-01-06 04:00] VITALS: BP 135/71; PULSE 82; RESP 20; TEMP 98.2; O2SAT 100
[2017-01-06] MEDS: CEFEPIME INJ 1,000 MG in SODIUM CHLORIDE 0.9% INJ 100 ML IV SCH (04:19)
[2017-01-06] MEDS: SEVELAMER CARBONATE 800 MG TAB PO SCH ×3 (07:36→16:52)
[2017-01-06] MEDS: predniSONE 10 MG TAB PO SCH (07:37)
[2017-01-06] MEDS: PANTOPRAZOLE SOD 40 MG DELAYED RELEASE TAB PO SCH (07:37)
[2017-01-06] MEDS: BUMETANIDE 1 MG TAB PO SCH ×2 (07:37→16:55)
[2017-01-06] MEDS: SODIUM CHLORIDE 0.9% FLUSH 5 ML FLUSH FLUSH SCH ×2 (07:38→20:28)
[2017-01-06] MEDS: ALBUMIN HUMAN 25% 12.5 GM/50 ML BAGP IV SCH ×2 (07:38→20:27)
[2017-01-06 07:50] VITALS: BP 146/82; PULSE 85; RESP 20; TEMP 97.8; O2SAT 98
--- NOTE | 2017-01-06 10:22 | HHI.PR ---
Subjective Remarks resting comfortably with no distress. no new complaints. Objective Vitals Vital Signs Date Time Temp Pulse Resp B/P Pulse Ox O2 Delivery O2 Flow Rate FiO2 01/06/17 04:00 98.2 82 20 135/71 100 01/06/17 00:00 97.0 87 21 142/76 98 01/05/17 20:30 88 01/05/17 20:00 97.2 89 22 141/75 99 01/05/17 15:50 99.0 100 20 115/77 97 01/05/17 11:50 96.8 101 20 149/88 98 I/O 01/05/17 01/05/17 01/05/17 01/06/17 01/06/17 01/06/17 07:00 15:00 23:00 07:00 15:00 23:00 Intake Total 720 ml 720 ml 120 ml Output Total 200 ml 5000 ml 100 ml 200 ml Balance 520 ml -5000 ml 620 ml -80 ml Intake Oral 720 ml 720 ml 120 ml Output Urine Total 200 ml 100 ml 200 ml Hemodialysis 5000 ml # Voids 2 # Bowel Movements 2 Result Diagram: 01/04/1730 01/04/17 0730 Imaging Last Impressions Catheter Placement X-Ray 12/31/16 0951 Signed Impressions: Service Date/Time: Saturday, December 31, 2016 11:21 - CONCLUSION: Uncomplicated PermaCath placement as above. Bakari Amado MD Abdomen/Pelvis CT 12/28/16 0000 Signed Impressions: Service Date/Time: Wednesday, December 28, 2016 03:28 - CONCLUSION: Liver cirrhosis and stigmata of portal hypertension. Abundant ascites. Small bilateral pleural effusions and left base pneumonia. Derek Krause MD Abdomen Ultrasound 12/28/16 0000 Signed Impressions: Service Date/Time: Wednesday, December 28, 2016 06:43 - CONCLUSION: 1. Flow within the main portal vein is not confirmed with certainty which raises the possibility of portal vein thrombus. CT or MRI of the abdomen with contrast may be helpful for father evaluation of this finding. 2. Small heterogeneous nodular liver consistent with cirrhosis. 3. Ascites. 4. Splenomegaly. 5. Distended thick walled gallbladder with pericholecystic fluid and possible stone or polyp in the neck. Clinical correlation is recommended to rule out acute cholecystitis. 6. Poor visualization of the pancreas and right kidney due to shadowing bowel gas. Veto Cortez MD Chest X-Ray 12/25/162123 Signed Impressions: Service Date/Time: Sunday, December 25, 2016 21:45 - CONCLUSION: Cardiomegaly without evidence of acute cardiopulmonary process. Bakari Amado MD Objective Remarks GENERAL: This is a well-nourished, well-developed patient, in no apparent distress. CARDIOVASCULAR: Regular rate and regular rhythm without murmurs, gallops, or rubs. RESPIRATORY: Clear to auscultation. Breath sounds equal bilaterally. No wheezes , rales, or rhonchi. GASTROINTESTINAL: Abdomen soft, non-tender, distended. Normal, active bowel sounds MUSCULOSKELETAL: Extremities with bilateral pedal edema. NEURO: Alert & Oriented x4 to person, place, time, situation. Moves all ext x4 Procedures paracentesis permacath placement Medications and IVs Current Medications IV Flush (NS Flush) 2 ml UNSCH PRN FLUSH FLUSH AFTER USING IV ACCESS; Start at 23:15 IV Flush (NS Flush) 2 ml BID FLUSH Last administered on 01/06/17 07:38; Start 12/26/16 at 09:00 Heparin Sodium (Porcine) (Heparin Inj) 5,000 units Q8H SQ Last administered on 12/28/16 09:23; Start 12/26/16 at 00:00; Stop 12/28/16 at 14:41; Status DC Naloxone HCl (Narcan Inj) 0.4 mg UNSCH PRN IV SEE LABEL COMMENTS; Start at 23:15 Acetaminophen (Tylenol) 650 mg Q4H PRN PO headaches/pain/ fever >101 Last administered on 12/28/16 05:54; Start 12/26/16 at 05:15 Diphenhydramine HCl (Benadryl) 25 mg ONCE ONCE PO Last administered on 05:32; Start 12/26/16 at 05:15; Stop 12/26/16 at 05:16; Status DC Furosemide (Lasix) 40 mg DAILY PO ; Start 12/26/16 at 09:00; Stop 12/26/16 at 11: 08; Status DC Mycophenolate Mofetil (Cellcept) 500 mg BID@18 PO Last administered on 05:06; Start 12/26/16 at 18:00; Stop 12/27/16 at 11:02; Status DC Nifedipine (Procardia Xl) 60 mg DAILY PO Last administered on 12/31/16 09:25; Start 12/26/16 at 09:00; Stop 01/01/17 at 09:55; Status DC Pantoprazole Sodium (Protonix) 40 mg DAILY PO ; Start 12/26/16 at 09:00; Stop 12/26/16 at 11:08; Status DC Prednisone (Deltasone) 20 mg DAILY PO ; Start 12/26/16 at 09:00; Stop 12/26/16 at 09:00; Status DC Alprazolam (Xanax) 0.125 mg Q6H PRN PO ANXIETY Last administered on 12/27/16 16 :34; Start 12/26/16 at 07:45; Stop 12/28/16 at 14:45; Status DC Miscellaneous (Pill Splitter) 1 ea UNSCH PRN OTHER SEE LABEL COMMENTS Last administered on 12/30/16 17:40; Start 12/26/16 at 08:00 Prednisone (Deltasone) 40 mg DAILY PO ; Start 12/26/16 at 09:00; Stop 12/26/16 at 11:08; Status DC Prednisone (Deltasone) 60 mg DAILY PO Last administered on 12/28/16 09:23; Start 12/27/16 at 09:00; Stop 12/28/16 at 20:05; Status DC Prednisone (Deltasone) 20 mg ONCE ONCE PO Last administered on 12/26/16 12:30 ; Start 12/26/16 at 11:15; Stop 12/26/16 at 11:16; Status DC Bumetanide (Bumex Inj) 2 mg BID@,18 IV PUSH Last administered on 12/28/16 09: 22; Start 12/26/16 at 18:00; Stop 12/28/16 at 11:20; Status DC Diphenhydramine HCl (Benadryl) 25 mg HS PRN PO insomnia Last administered on 23:41; Start 12/27/16 at 01:45; Stop 12/28/16 at 14:46; Status DC Mycophenolate Mofetil (Cellcept) 1,000 mg BID@06,18 PO Last administered on 12/28 18:21; Start 12/27/16 at 18:00; Stop 12/28/16 at 20:05; Status DC Acetaminophen/ Hydrocodone Bitart ([place] 5-325 Mg) 1 tab Q6H PRN PO PAIN NOT RELIEVED BY TYLENOL Last administered on 12/28/16 11:37; Start 12/27/16 at 16:00 ; Stop 12/28/16 at 14:46; Status DC Albuterol Sulfate 2.5 mg 2.5 mg Q6HR NEB PRN INH SHORTNESS OF BREATH Last administered on 12/27/16 20:12; Start 12/27/16 at 16:00 Cefepime HCl/ Sodium Chloride (Maxipime Inj/NS Inj) 100 ml @ 200 mls/hr Q24H IV Last administered on 01/06/17 04:19; Start 12/28/16 at 05:00; Stop 01/09/17 at 08:00 Morphine Sulfate 2 mg 2 mg Q3H PRN IV PUSH breakthrough pain Last administered on 12/28/16 09:23; Start 12/28/16 at 05:30; Stop 12/28/16 at 14:46; Status DC Metronidazole 100 ml @ 100 mls/hr Q6H IV Last administered on 01/01/17 06:33; Start 12/28/16 at 06:00; Stop 01/01/17 at 08:11; Status DC Vancomycin HCl/ Sodium Chloride (Vancomycin Inj/ NS 500 ml Inj) 515 ml @ 257.5 mls/ hr ONCE ONCE IV Last administered on 12/28/16 08:40; Start 12/28/16 at 06: 45; Stop 12/28/16 at 08:44; Status DC Sevelamer Carbonate 800 mg 800 mg TIDAC PO Last administered on 01/01/17 08:16 ; Start 12/28/16 at 12:00; Stop 01/02/17 at 09:10; Status DC Bumetanide 100 ml @ 8 mls/hr CONTINUOUS IV Last administered on 12/28/16 15:11 ; Start 12/28/16 at 13:30; Stop 12/28/16 at 17:24; Status DC Heparin Sodium/ Dextrose (Heparin-D5W Inj) 250 ml @ 0 mls/hr TITRATE IV Last administered on 12/28/16 15:12; Start 12/28/16 at 14:45; Stop 12/28/16 at 21:51; Status DC Hydromorphone HCl (Dilaudid Pf Inj) 0.5 mg Q4H PRN IV PUSH pain 7-10 or not taking po Last administered on 01/04/17 03:48; Start 12/28/16 at 14:45; Status Hold Oxycodone HCl (Roxicodone) 5 mg Q4H PRN PO pain 3-6 Last administered on 19:57; Start 12/28/16 at 14:45 Pantoprazole Sodium (Protonix Inj) 40 mg Q24H IV PUSH Last administered on 15:00; Start 12/28/16 at 15:00; Stop 01/01/17 at 08:12; Status DC Bumetanide (Bumetanide) 2 mg BID@09,18 PO Last administered on 01/06/17 07:37 ; Start 12/28/16 at 18:00 Mycophenolate Mofetil (Cellcept) 500 mg BID@06,18 PO Last administered on 05:22; Start 12/29/16 at 06:00; Stop 01/01/17 at 09:15; Status DC Prednisone 40 mg 40 mg DAILY PO Last administered on 01/01/17 08:15; Start 12/29 at 09:00; Stop 01/01/17 at 09:52; Status DC Heparin Sodium/ Dextrose (Heparin-D5W Inj) 250 ml @ 0 mls/hr TITRATE IV Last administered on 12/30/16 01:58; Start 12/28/16 at 22:00; Stop 12/30/16 at 12:16; Status DC Alprazolam (Xanax) 0.5 mg NOW PO Last administered on 12/28/16 23:22; Start 12/28/16 at 23:15; Stop 12/29/16 at 00:45; Status DC Ondansetron HCl (Zofran Inj) 4 mg Q6H PRN IV PUSH NAUSEA Last administered on 23:40; Start 12/29/16 at 09:30 Alprazolam (Xanax) 0.125 mg Q12HR PRN PO ANXIETY Last administered on 12/30/16 01:39; Start 12/29/16 at 13:00; Stop 12/30/16 at 07:52; Status DC Alprazolam (Xanax) 0.125 mg Q6HR PRN PO ANXIETY Last administered on 01/05/17 04:33; Start 12/30/16 at 12:00; Stop 01/05/17 at 10:02; Status DC Miscellaneous (Pill Splitter) 1 ea UNSCH PRN OTHER SEE LABEL COMMENTS; Start at 08:00 Albumin Human (Albumin 25% Inj) 12.5 gm Q12H IV Last administered on 01/06/17 07:38; Start 12/30/16 at 20:00 Midazolam HCl (Versed Inj) 5 mg STK-MED ONCE .ROUTE Last administered on 10:57; Start 12/31/16 at 10:57; Stop 12/31/16 at 10:58; Status DC Fentanyl Citrate (fentaNYL INJ) 250 mcg STK-MED ONCE .ROUTE Last administered on 12/31/16 10:57; Start 12/31/16 at 10:57; Stop 12/31/16 at 10:58; Status DC Vancomycin HCl (Vancomycin Inj) 1,000 mg STK-MED ONCE .ROUTE Last administered on 12/31/16 10:58; Start 12/31/16 at 10:58; Stop 12/31/16 at 10:59; Status DC Heparin Sodium (Porcine) (*HEPARIN INJ Periprocedural ONLY) 10,000 units STK- MED ONCE .ROUTE Last administered on 12/31/16 11:40; Start 12/31/16 at 11:19; Stop 12/31/16 at 11:20; Status DC Lidocaine/ Epinephrine 20 ml 20 ml STK-MED ONCE .ROUTE Last administered on 12/31 11:25; Start 12/31/16 at 11:19; Stop 12/31/16 at 11:20; Status DC Sodium Chloride (NS 1000 ml Inj) 1,000 ml @ 0 mls/hr Q0M PRN IV For Prime & Rinse Back Last administered on 12/31/16 17:02; Start 12/31/16 at 11:44 Heparin Sodium (Porcine) 8000 units 8,000 units UNSCH PRN IVF WITH DIALYSIS; Start 12/31/16 at 11:45 Sodium Chloride 1,000 ml @ 200 mls/hr Q5H PRN IV WITH DIALYSIS Last administered on 01/05/17 10:54; Start 12/31/16 at 11:44 Sodium Chloride (NS 1000 ml Inj) 1,000 ml @ 0 mls/hr Q0M PRN IV WITH DIALYSIS Last administered on 12/31/16 17:03; Start 12/31/16 at 11:44 Mannitol (Mannitol Inj) 12.5 gm UNSCH PRN IV WITH DIALYSIS; Start 12/31/16 at 11 :45 Albumin Human (Albumin 25% Inj) 25 gm UNSCH PRN IV WITH DIALYSIS; Start at 11:45 IV Flush (NS Flush) 5 ml UNSCH PRN IVF WITH DIALYSIS Last administered on 17:01; Start 12/31/16 at 11:45 Heparin Sodium (Porcine) (Heparin Inj) UNSCH PRN .XX WITH DIALYSIS Last administered on 01/05/17 10:55; Start 12/31/16 at 11:45 Gentamicin Sulfate (Gentamicin (Dialysis) Inj) 20 mg UNSCH PRN IV WITH DIALYSIS Last administered on 01/05/17 10:55; Start 12/31/16 at 11:45 Ondansetron HCl (Zofran Inj) 4 mg UNSCH PRN IV WITH DIALYSIS Last administered on 01/04/17 21:23; Start 12/31/16 at 11:45 Acetaminophen (Tylenol) 650 mg UNSCH PRN PO for headach, pain, temp > 101F; Start 12/31/16 at 11:45 Diphenhydramine HCl (Benadryl) 25 mg UNSCH PRN PO for hives/itching/anaphylaxis ; Start 12/31/16 at 11:45 Nitroglycerin (Nitrostat Sl) 0.4 mg UNSCH PRN SL CHEST PAIN; Start 12/31/16 at 11:45 Clonidine (Catapres) 0.1 mg UNSCH PRN PO for BP > 180/100 X 2 readings; Start 12/31/16 at 11:45 Gelatin (Gelfoam 12 Mm/7 Mm Top) 1 foam UNSCH PRN TOP SEE LABEL COMMENTS; Start 12/31/16 at 11:45 Epoetin [place] (Epogen Inj) 10,000 units UNSCH PRN IV WITH DIALYSIS Last administered on 01/05/17 10:56; Start 12/31/16 at 11:45 Pantoprazole Sodium (Protonix) 40 mg DAILY PO Last administered on 01/06/17 07 :37; Start 01/01/17 at 09:00 Prednisone (Deltasone) 30 mg DAILY PO Last administered on 01/06/17 07:37; Start 01/02/17 at 09:00 Heparin Sodium (Porcine) (Heparin Inj) 5,000 units Q12HR SQ ; Start 01/02/17 at 21:00; Status Hold Sevelamer Carbonate (Renvela) 1,600 mg TIDAC PO Last administered on 01/06/17 07:36; Start 01/02/17 at 12:00 Oxycodone HCl (Roxicodone) 10 mg Q4H PRN PO PAIN 7-10 Last administered on 01/06 04:18; Start 01/04/17 at 09:00 Alprazolam (Xanax) 0.25 mg Q6H PRN PO ANXIETY Last administered on 01/06/17 06 :35; Start 01/05/17 at 10:15 A/P Assessment and Plan A/P IgA nephropathy Acute on chronic renal failure -on prednisone taper -Cellecept was discontinued. -started on HD (will be switched to MWF schedule)- s/p perma-cath placement -vascular surgery consulted for AV graft placement; scheduled for Saturday. -monitor renal function Nephrology following:Dr. Mayer Alcoholic cirrhosis Acute abdominal pain Possible SBP Diagnostic paracentesis done;fluid culture negative so far. 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 on epogen per nephrology will monitor H/H periodically anxiety; xanax as needed. Prophylaxis: GI Prophylaxis Protonix DVT Prophylaxis -- SCDs -no chemical prophylaxis due to thrombocytopenia. will dc telemetry. Sachi Medeiros MD Jan 06, 2017 10:22
--- NOTE | 2017-01-06 10:53 | PD.VS.PN ---
Subjective Subjective/Hospital Course Discussed possibly creating left upper extremity avf on sunday 01/07 if OR space available. Patient without complaints. Understands risks of steal and swelling with creation of avf. Objective Vitals/I&O Date Time Temp Pulse Resp B/P Pulse Ox O2 Delivery O2 Flow Rate FiO2 01/06/17 07:50 97.8 85 20 146/82 98 01/06/17 04:00 98.2 82 20 135/71 100 01/06/17 00:00 97.0 87 21 142/76 98 01/05/17 20:30 88 01/05/17 20:00 97.2 89 22 141/75 99 01/05/17 15:50 99.0 100 20 115/77 97 01/05/17 11:50 96.8 101 20 149/88 98 Physical Exam Palpable radial pulse. Laboratory Date/Time Procedure Status Source Growth 01/01/17 21:12 Stool Occult Blood ([facility]) - Final Complete Stool Stool HEMOCCULT NEGATIVE Assessment and Plan Assessment: (1) Renal failure Status: Acute Plan Patient is 46 year old male with ESRD requiring hemodialysis. I discussed possible creation of left upper extremity BC AVF on 01/07. Patient ok with plan. Will make NPO after midnight. Esvin Reed DO, FACS Surgical Attendant of Vascular Surgery NEMO/Esvin Freeman DO Jan 06, 2017 10:53
--- NOTE | 2017-01-06 11:09 | HHI.NPPN ---
Subjective Complaints: Obesity General Problems: Edema Renal Failure: Chronic, Acute Additional Remarks Tolerated HD yesterday, no acute complaints today Review of Systems General Constitutional: Fatigue Cardiovascular Cardiac: Edema Objective Data Data 01/05/17 01/06/17 19:00 07:00 Intake Total 840 ml Output Total 5000 ml 300 ml Balance -5000 ml 540 ml Intake Oral 840 ml Output Urine Total 300 ml Hemodialysis 5000 ml # Voids 2 # Bowel Movements 2 Vital Signs Date Time Temp Pulse Resp B/P Pulse Ox O2 Delivery O2 Flow Rate FiO2 01/06/17 07:50 97.8 85 20 146/82 98 01/06/17 04:00 98.2 82 20 135/71 100 01/06/17 00:00 97.0 87 21 142/76 98 01/05/17 20:30 88 01/05/17 20:00 97.2 89 22 141/75 99 01/05/17 15:50 99.0 100 20 115/77 97 01/05/17 11:50 96.8 101 20 149/88 98 -: 01/04/17 0730 01/04/17 0730 Tubes & Lines: Perma-Cath Physical Exam General Appearance: Well Developed, Well Nourished, No Acute Distress, Comfortable, Obese Throat Throat Exam: Oral Mucosa Castella & Moist Pulmonary Resp Exam: Breath Sounds Equal, No Distress, Decreased Bases Cardiology CV Exam: Regular, Normal Sinus Rhythm Gastrointestinal/Abdomen GI Exam: Soft, Non-Tender Musculoskeletal MS Exam: Joints Intact, Normal Tone Integumentary Skin Exam: Clear, Warm, Dry, Intact Extremeties Extremities Exam: Pedal Pulses Palpable, Moderate Edema, Pitting Edema, Dependent Edema Neurologic Neuro Exam: Alert, Awake, Oriented, Speech Clear, Moving All Extremities Psychiatric Psych Exam: Appropriate Responses Assessment/Plan Discussed Condition With: Patient Assessment Summary: Fluid/Volume Overload, Hypertension, End Stage Renal Disease Problem List: (1) Acute renal failure Plan: in a pt with ESRD due to Iga nephropathy with RPGN he still makes some urine, but will be dialysis dependent Off cellcept stopped, on prednisone taper s/p permcath placement Plan for AVF surgery possibly tomorrow. HD done yesterday, then will do HD tomorrow and continue MWF HD. he is having insurance issues, will be admitted until able to be in transitional HD program goal is to go to [facility] when approved (2) RPGN (rapidly progressive glomerulonephritis) Plan: see above (3) IgA nephropathy determined by renal biopsy Plan: change immunosuppressive medications as above monitor renal function management as above he has progressed to ESRD (4) Thrombocytopenia Plan: Platelet count 40s - continue to monitor. May need platelets for surgery tomorrow. it was thought cirrhosis may have been the etiology no active bleeding (5) Leukocytosis Plan: GI signed off continue Abx until 01/09 AVF surgery after infection clears monitor clinically , carefully monitor drug levels when appropriate Plan Problem Qualifiers (1) Acute renal failure: Qualified Code: N17.9 - Acute renal failure, unspecified acute renal failure type Horace Adrian MD Jan 06, 2017 11:09
[2017-01-06 11:30] VITALS: BP 138/88; PULSE 85; RESP 20; TEMP 97.1; O2SAT 95
[2017-01-06] MEDS: ONDANSETRON HCL 4 MG/2 ML VIAL IV PUSH PRN (12:45)
[2017-01-06 15:50] VITALS: BP 142/84; PULSE 92; RESP 20; TEMP 98.7; O2SAT 96
[2017-01-06 20:00] VITALS: BP 140/89; PULSE 87; RESP 18; TEMP 98; O2SAT 97
[2017-01-07] VITALS (13 sets, daily range): BP systolic 121–143; BP diastolic 69–86; PULSE 79–106; RESP 16–20; TEMP 97.6–98.9; O2SAT 92–98
[2017-01-07] MEDS: ALPRAZolam 0.25 MG TAB PO PRN ×2 (03:26→16:35)
[2017-01-07] MEDS: CEFEPIME INJ 1,000 MG in SODIUM CHLORIDE 0.9% INJ 100 ML IV SCH (05:19)
[2017-01-07 06:58] LABS: AUTOMATED NEUTROPHIL # 5.6 TH/MM3 (1.8-7.7); BASOPHIL % 0.2 % (0.0-2.0); EOSINOPHIL # 0.1 TH/MM3 (0-0.4); EOSINOPHIL % 1.6 % (0.0-4.0); HEMATOCRIT 23.3 % (39.0-51.0); LYMPH % 11.9 % (9.0-44.0); LYMPHOCYTE # 0.9 TH/MM3 (1.0-4.8); MEAN CELL VOLUME 95.2 FL (80.0-100.0); MEAN CORPUSCULAR HEMOGLOBIN 32.4 PG (27.0-34.0); MONO % 12.3 % (0.0-8.0); PLATELET COUNT 30 TH/MM3 (150-450); RED BLOOD COUNT 2.45 MIL/MM3 (4.50-5.90); RED CELL DISTRIBUTION WIDTH 15.1 % (11.6-17.2); WHITE BLOOD COUNT 7.6 TH/MM3 (4.0-11.0)
[2017-01-07 07:16] LABS: HEMO FLAGS AUTO DIFF
[2017-01-07 07:27] LABS: BICARBONATE 29.7 MEQ/L (21.0-32.0); POTASSIUM 4.2 MEQ/L (3.5-5.1)
[2017-01-07 07:39] LABS: CALCIUM-PROTEIN CORRECTED 9.1 MG/DL (8.5-10.1)
[2017-01-07] MEDS: ALBUMIN HUMAN 25% 12.5 GM/50 ML BAGP IV SCH ×2 (08:00→20:47)
[2017-01-07] MEDS: SEVELAMER CARBONATE 800 MG TAB PO SCH ×2 (08:00→18:13)
[2017-01-07 08:22] LABS: BANDS 5 % (0-6); EOSINOPHILS 2 % (0-4); METAMYELOCYTES 1 % (0-1); NEUTROPHIL # MANUAL DIFF 6.1 TH/MM3 (1.8-7.7); POLYS (SEG NEUTROPHILS) 74 % (16-70); WBC DIFF SAMPLE 100
[2017-01-07 08:23] LABS: OVALOCYTES 1+ (NORMAL); PLATELET ESTIMATE SMEAR LOW (NORMAL); PLATELET MORPHOLOGY NORMAL (NORMAL); POLYCHROMASIA 2.2 % (0.0-1.9); SCAN/DIFF FINAL DIFF MANUAL
[2017-01-07] MEDS: BUMETANIDE 1 MG TAB PO SCH ×2 (08:31→18:13)
[2017-01-07] MEDS ORDERED: HEPARIN SODIUM - SQ 10,000 UNITS/ML VIAL ONE (08:37)
[2017-01-07] MEDS ORDERED: PROTAMINE SULFATE 50 MG/5 ML VIAL ONE (08:37)
[2017-01-07] MEDS ORDERED: GELFOAM SIZE 100 ONE (08:37)
[2017-01-07] MEDS ORDERED: THROMBIN (TOPICAL) 5,000 UNIT VIAL ONE (08:37)
[2017-01-07] MEDS ORDERED: KETAMINE HCL 500 MG/5 ML VIAL ONE (08:43)
[2017-01-07] MEDS ORDERED: SODIUM CHLOR 0.9% 250 ML INJ 250 ML ONE (09:03)
[2017-01-07] MEDS ORDERED: VANCOMYCIN HCL 1000 MG VIAL ONE (09:03)
[2017-01-07] MEDS ORDERED: ceFAZolin 2 GM PREMIX 50 ML ONE (09:03)
[2017-01-07] MEDS ORDERED: MIDAZOLAM HCL 2 MG/2 ML VIAL ONE ×2 (09:46→13:10)
[2017-01-07] MEDS ORDERED: FAMOTIDINE 20 MG/2 ML VIAL ONE (09:47)
--- NOTE | 2017-01-07 10:28 | PD.VS.PN ---
Pre-operative Note Pre-operative diagnosis: ESRD Planned procedure: left upper extremity AVF. Interval History: Progression to renal failure requiring HD. Labs: Laboratory Results Test 01/04/17 01/07/17 07:30 06:00 Prothromb Time International 1.0 RATIO Ratio White Blood Count 7.6 TH/MM3 (4.0-11.0) Red Blood Count 2.45 MIL/MM3 (4.50-5.90) Hemoglobin 7.9 GM/DL (13.0-17.0) Hematocrit 23.3 % (39.0-51.0) Mean Corpuscular Volume 95.2 FL (80.0-100.0) Mean Corpuscular Hemoglobin 32.4 PG (27.0-34.0) Mean Corpuscular Hemoglobin 34.0 % Concent (32.0-36.0) Red Cell Distribution Width 15.1 % (11.6-17.2) Platelet Count 30 TH/MM3 (150-450) Mean Platelet Volume 8.7 FL (7.0-11.0) Sodium Level 137 MEQ/L (136-145) Potassium Level 4.2 MEQ/L (3.5-5.1) Chloride Level 98 MEQ/L (98-107) Carbon Dioxide Level 29.7 MEQ/L (21.0-32.0) Anion Gap 9 MEQ/L (5-15) Blood Urea Nitrogen 64 MG/DL (7-18) Random Glucose 92 MG/DL (74-106) Calcium Level 7.4 MG/DL (8.5-10.1) Blood: PL count low, T/S Imaging: Last Impressions Catheter Placement X-Ray 12/31/16 0951 Signed Impressions: Service Date/Time: Saturday, December 31, 2016 11:21 - CONCLUSION: Uncomplicated PermaCath placement as above. Bakari Amado MD Abdomen/Pelvis CT 12/28/16 0000 Signed Impressions: Service Date/Time: Wednesday, December 28, 2016 03:28 - CONCLUSION: Liver cirrhosis and stigmata of portal hypertension. Abundant ascites. Small bilateral pleural effusions and left base pneumonia. Derek Krause MD Abdomen Ultrasound 12/28/16 0000 Signed Impressions: Service Date/Time: Wednesday, December 28, 2016 06:43 - CONCLUSION: 1. Flow within the main portal vein is not confirmed with certainty which raises the possibility of portal vein thrombus. CT or MRI of the abdomen with contrast may be helpful for father evaluation of this finding. 2. Small heterogeneous nodular liver consistent with cirrhosis. 3. Ascites. 4. Splenomegaly. 5. Distended thick walled gallbladder with pericholecystic fluid and possible stone or polyp in the neck. Clinical correlation is recommended to rule out acute cholecystitis. 6. Poor visualization of the pancreas and right kidney due to shadowing bowel gas. Veto Cortez MD Chest X-Ray 12/25/162123 Signed Impressions: Service Date/Time: Sunday, December 25, 2016 21:45 - CONCLUSION: Cardiomegaly without evidence of acute cardiopulmonary process. Bakari Amado MD Orders: T&S Post-operative destination: PACU Operative site marked: Yes Consent: Informed consent has been obtained from Wili Prince III. I have explained the procedure in detail and discussed the risks, benefits, and potential complications. All questions have been answered. Esvin Reed DO Jan 07, 2017 10:28
[2017-01-07] MEDS ORDERED: BUPIVACAINE/EPINEPHRINE 0.25% 50 ML VIAL INFIL ONE (11:02)
[2017-01-07] MEDS ORDERED: SODIUM CHLORID 0.9% 500 ML INJ 500 ML IV ONE (12:00)
[2017-01-07] MEDS ORDERED: PROPOFOL 200 MG/20 ML AMP IV ONE (12:00)
[2017-01-07] MEDS ORDERED: SODIUM CHLOR 0.9% 250 ML INJ 250 ML IV ONE (12:00)
[2017-01-07] MEDS ORDERED: HEPARIN SODIUM - IV 10,000 UNITS/10 ML VIAL IV ONE (12:00)
[2017-01-07] MEDS ORDERED: DEXTROSE 50% IN WATER 50 ML VIAL(D50) IV PUSH PRN (12:30)
[2017-01-07] MEDS ORDERED: GLUCAGON 1 MG/ML VIAL OTHER PRN (12:30)
[2017-01-07] MEDS ORDERED: SODIUM CHLOR 0.9% 1000 ML INJ 1,000 ML IV SCH (13:00)
[2017-01-07] MEDS ORDERED: DO NOT ADM ANY ANTICOAGULANT DRUGS XX PRN (13:00)
--- NOTE | 2017-01-07 13:44 | HHI.PR ---
Subjective Remarks had AV graft earlier. resting comfortably with no distress. pain is mild. no new complaints. Objective Vitals Vital Signs Date Time Temp Pulse Resp B/P Pulse Ox O2 Delivery O2 Flow Rate FiO2 01/07/17 08:00 97.6 84 20 121/69 96 01/07/17 06:18 16 01/07/17 04:00 97.8 83 17 138/75 97 01/07/17 00:00 98.2 81 17 136/76 98 01/06/17 20:00 98.0 87 18 140/89 97 01/06/17 15:50 98.7 92 20 142/84 96 I/O 01/06/17 01/06/17 01/06/17 01/07/17 01/07/17 01/07/17 07:00 15:00 23:00 07:00 15:00 23:00 Intake Total 120 ml 120 ml 240 ml Output Total 200 ml 150 ml 975 ml Balance -80 ml -30 ml 240 ml -975 ml Intake Oral 120 ml 120 ml 240 ml Output Urine Total 200 ml 150 ml 975 ml # Voids 1 # Bowel Movements 1 Result Diagram: 01/07/17 0600 01/07/17 0600 Imaging Last Impressions Catheter Placement X-Ray 12/31/16 0951 Signed Impressions: Service Date/Time: Saturday, December 31, 2016 11:21 - CONCLUSION: Uncomplicated PermaCath placement as above. Bakari Amado MD Abdomen/Pelvis CT 12/28/16 0000 Signed Impressions: Service Date/Time: Wednesday, December 28, 2016 03:28 - CONCLUSION: Liver cirrhosis and stigmata of portal hypertension. Abundant ascites. Small bilateral pleural effusions and left base pneumonia. Derek Krause MD Abdomen Ultrasound 12/28/16 0000 Signed Impressions: Service Date/Time: Wednesday, December 28, 2016 06:43 - CONCLUSION: 1. Flow within the main portal vein is not confirmed with certainty which raises the possibility of portal vein thrombus. CT or MRI of the abdomen with contrast may be helpful for father evaluation of this finding. 2. Small heterogeneous nodular liver consistent with cirrhosis. 3. Ascites. 4. Splenomegaly. 5. Distended thick walled gallbladder with pericholecystic fluid and possible stone or polyp in the neck. Clinical correlation is recommended to rule out acute cholecystitis. 6. Poor visualization of the pancreas and right kidney due to shadowing bowel gas. Veto Cortez MD Chest X-Ray [id number] Signed Impressions: Service Date/Time: Sunday, December 25, 2016 21:45 - CONCLUSION: Cardiomegaly without evidence of acute cardiopulmonary process. Bakari Amado MD Objective Remarks GENERAL: This is a well-nourished, well-developed patient, in no apparent distress. CARDIOVASCULAR: Regular rate and regular rhythm without murmurs, gallops, or rubs. RESPIRATORY: Clear to auscultation. Breath sounds equal bilaterally. No wheezes , rales, or rhonchi. GASTROINTESTINAL: Abdomen soft, non-tender, distended. Normal, active bowel sounds MUSCULOSKELETAL: Extremities with bilateral pedal edema. NEURO: Alert & Oriented x4 to person, place, time, situation. Moves all ext x4 Procedures paracentesis permacath placement AV graft placement Medications and IVs Current Medications IV Flush (NS Flush) 2 ml UNSCH PRN FLUSH FLUSH AFTER USING IV ACCESS; Start at 23:15 IV Flush (NS Flush) 2 ml BID FLUSH Last administered on 01/06/17 20:28; Start 12/26/16 at 09:00 Heparin Sodium (Porcine) (Heparin Inj) 5,000 units Q8H SQ Last administered on 12/28/16 09:23; Start 12/26/16 at 00:00; Stop 12/28/16 at 14:41; Status DC Naloxone HCl (Narcan Inj) 0.4 mg UNSCH PRN IV SEE LABEL COMMENTS; Start at 23:15 Acetaminophen (Tylenol) 650 mg Q4H PRN PO headaches/pain/ fever >101 Last administered on 12/28/16 05:54; Start 12/26/16 at 05:15 Diphenhydramine HCl (Benadryl) 25 mg ONCE ONCE PO Last administered on 05:32; Start 12/26/16 at 05:15; Stop 12/26/16 at 05:16; Status DC Furosemide (Lasix) 40 mg DAILY PO ; Start 12/26/16 at 09:00; Stop 12/26/16 at 11: 08; Status DC Mycophenolate Mofetil (Cellcept) 500 mg BID@06,18 PO Last administered on 05:06; Start 12/26/16 at 18:00; Stop 12/27/16 at 11:02; Status DC Nifedipine (Procardia Xl) 60 mg DAILY PO Last administered on 12/31/16 09:25; Start 12/26/16 at 09:00; Stop 01/01/17 at 09:55; Status DC Pantoprazole Sodium (Protonix) 40 mg DAILY PO ; Start 12/26/16 at 09:00; Stop 12/26/16 at 11:08; Status DC Prednisone (Deltasone) 20 mg DAILY PO ; Start 12/26/16 at 09:00; Stop 12/26/16 at 09:00; Status DC Alprazolam (Xanax) 0.125 mg Q6H PRN PO ANXIETY Last administered on 12/27/16 16 :34; Start 12/26/16 at 07:45; Stop 12/28/16 at 14:45; Status DC Miscellaneous (Pill Splitter) 1 ea UNSCH PRN OTHER SEE LABEL COMMENTS Last administered on 12/30/16 17:40; Start 12/26/16 at 08:00; Stop 01/07/17 at 12:36; Status DC Prednisone (Deltasone) 40 mg DAILY PO ; Start 12/26/16 at 09:00; Stop 12/26/16 at 11:08; Status DC Prednisone (Deltasone) 60 mg DAILY PO Last administered on 12/28/16 09:23; Start 12/27/16 at 09:00; Stop 12/28/16 at 20:05; Status DC Prednisone (Deltasone) 20 mg ONCE ONCE PO Last administered on 12/26/16 12:30 ; Start 12/26/16 at 11:15; Stop 12/26/16 at 11:16; Status DC Bumetanide (Bumex Inj) 2 mg BID@18 IV PUSH Last administered on 12/28/16 09: 22; Start 12/26/16 at 18:00; Stop 12/28/16 at 11:20; Status DC Diphenhydramine HCl (Benadryl) 25 mg HS PRN PO insomnia Last administered on 23:41; Start 12/27/16 at 01:45; Stop 12/28/16 at 14:46; Status DC Mycophenolate Mofetil (Cellcept) 1,000 mg BID@06,18 PO Last administered on 12/28 18:21; Start 12/27/16 at 18:00; Stop 12/28/16 at 20:05; Status DC Acetaminophen/ Hydrocodone Bitart (Joffre 5-325 Mg) 1 tab Q6H PRN PO PAIN NOT RELIEVED BY TYLENOL Last administered on 12/28/16 11:37; Start 12/27/16 at 16:00 ; Stop 12/28/16 at 14:46; Status DC Albuterol Sulfate 2.5 mg 2.5 mg Q6HR NEB PRN INH SHORTNESS OF BREATH Last administered on 12/27/16 20:12; Start 12/27/16 at 16:00 Cefepime HCl/ Sodium Chloride (Maxipime Inj/NS Inj) 100 ml @ 200 mls/hr Q24H IV Last administered on 01/07/17 05:19; Start 12/28/16 at 05:00; Stop 01/09/17 at 08:00 Morphine Sulfate 2 mg 2 mg Q3H PRN IV PUSH breakthrough pain Last administered on 12/28/16 09:23; Start 12/28/16 at 05:30; Stop 12/28/16 at 14:46; Status DC Metronidazole 100 ml @ 100 mls/hr Q6H IV Last administered on 01/01/17 06:33; Start 12/28/16 at 06:00; Stop 01/01/17 at 08:11; Status DC Vancomycin HCl/ Sodium Chloride (Vancomycin Inj/ NS 500 ml Inj) 515 ml @ 257.5 mls/ hr ONCE ONCE IV Last administered on 12/28/16 08:40; Start 12/28/16 at 06: 45; Stop 12/28/16 at 08:44; Status DC Sevelamer Carbonate 800 mg 800 mg TIDAC PO Last administered on 01/01/17 08:16 ; Start 12/28/16 at 12:00; Stop 01/02/17 at 09:10; Status DC Bumetanide 100 ml @ 8 mls/hr CONTINUOUS IV Last administered on 12/28/16 15:11 ; Start 12/28/16 at 13:30; Stop 12/28/16 at 17:24; Status DC Heparin Sodium/ Dextrose (Heparin-D5W Inj) 250 ml @ 0 mls/hr TITRATE IV Last administered on 12/28/16 15:12; Start 12/28/16 at 14:45; Stop 12/28/16 at 21:51; Status DC Hydromorphone HCl (Dilaudid Pf Inj) 0.5 mg Q4H PRN IV PUSH pain 7-10 or not taking po Last administered on 01/04/17 03:48; Start 12/28/16 at 14:45; Status Hold Oxycodone HCl (Roxicodone) 5 mg Q4H PRN PO pain 3-6 Last administered on 19:57; Start 12/28/16 at 14:45 Pantoprazole Sodium (Protonix Inj) 40 mg Q24H IV PUSH Last administered on 15:00; Start 12/28/16 at 15:00; Stop 01/01/17 at 08:12; Status DC Bumetanide (Bumetanide) 2 mg BID@09,18 PO Last administered on 01/06/17 16:55 ; Start 12/28/16 at 18:00 Mycophenolate Mofetil (Cellcept) 500 mg BID@06,18 PO Last administered on 05:22; Start 12/29/16 at 06:00; Stop 01/01/17 at 09:15; Status DC Prednisone 40 mg 40 mg DAILY PO Last administered on 01/01/17 08:15; Start 12/29 at 09:00; Stop 01/01/17 at 09:52; Status DC Heparin Sodium/ Dextrose (Heparin-D5W Inj) 250 ml @ 0 mls/hr TITRATE IV Last administered on 12/30/16 01:58; Start 12/28/16 at 22:00; Stop 12/30/16 at 12:16; Status DC Alprazolam (Xanax) 0.5 mg NOW PO Last administered on 12/28/16 23:22; Start 12/28/16 at 23:15; Stop 12/29/16 at 00:45; Status DC Ondansetron HCl (Zofran Inj) 4 mg Q6H PRN IV PUSH NAUSEA Last administered on 12:45; Start 12/29/16 at 09:30 Alprazolam (Xanax) 0.125 mg Q12HR PRN PO ANXIETY Last administered on 12/30/16 01:39; Start 12/29/16 at 13:00; Stop 12/30/16 at 07:52; Status DC Alprazolam (Xanax) 0.125 mg Q6HR PRN PO ANXIETY Last administered on 01/05/17 04:33; Start 12/30/16 at 12:00; Stop 01/05/17 at 10:02; Status DC Miscellaneous (Pill Splitter) 1 ea UNSCH PRN OTHER SEE LABEL COMMENTS; Start at 08:00 Albumin Human (Albumin 25% Inj) 12.5 gm Q12H IV Last administered on 01/06/17 20:27; Start 12/30/16 at 20:00 Midazolam HCl (Versed Inj) 5 mg STK-MED ONCE .ROUTE Last administered on 10:57; Start 12/31/16 at 10:57; Stop 12/31/16 at 10:58; Status DC Fentanyl Citrate (fentaNYL INJ) 250 mcg STK-MED ONCE .ROUTE Last administered on 12/31/16 10:57; Start 12/31/16 at 10:57; Stop 12/31/16 at 10:58; Status DC Vancomycin HCl (Vancomycin Inj) 1,000 mg STK-MED ONCE .ROUTE Last administered on 12/31/16 10:58; Start 12/31/16 at 10:58; Stop 12/31/16 at 10:59; Status DC Heparin Sodium (Porcine) (*HEPARIN INJ Periprocedural ONLY) 10,000 units STK- MED ONCE .ROUTE Last administered on 12/31/16 11:40; Start 12/31/16 at 11:19; Stop 12/31/16 at 11:20; Status DC Lidocaine/ Epinephrine 20 ml 20 ml STK-MED ONCE .ROUTE Last administered on 12/31 11:25; Start 12/31/16 at 11:19; Stop 12/31/16 at 11:20; Status DC Sodium Chloride (NS 1000 ml Inj) 1,000 ml @ 0 mls/hr Q0M PRN IV For Prime & Rinse Back Last administered on 12/31/16 17:02; Start 12/31/16 at 11:44 Heparin Sodium (Porcine) 8000 units 8,000 units UNSCH PRN IVF WITH DIALYSIS Last administered on 01/07/17 11:26; Start 12/31/16 at 11:45 Sodium Chloride 1,000 ml @ 200 mls/hr Q5H PRN IV WITH DIALYSIS Last administered on 01/05/17 10:54; Start 12/31/16 at 11:44 Sodium Chloride (NS 1000 ml Inj) 1,000 ml @ 0 mls/hr Q0M PRN IV WITH DIALYSIS Last administered on 12/31/16 17:03; Start 12/31/16 at 11:44 Mannitol (Mannitol Inj) 12.5 gm UNSCH PRN IV WITH DIALYSIS; Start 12/31/16 at 11 :45 Albumin Human (Albumin 25% Inj) 25 gm UNSCH PRN IV WITH DIALYSIS; Start at 11:45 IV Flush (NS Flush) 5 ml UNSCH PRN IVF WITH DIALYSIS Last administered on 17:01; Start 12/31/16 at 11:45 Heparin Sodium (Porcine) (Heparin Inj) UNSCH PRN .XX WITH DIALYSIS Last administered on 01/05/17 10:55; Start 12/31/16 at 11:45 Gentamicin Sulfate (Gentamicin (Dialysis) Inj) 20 mg UNSCH PRN IV WITH DIALYSIS Last administered on 01/05/17 10:55; Start 12/31/16 at 11:45 Ondansetron HCl (Zofran Inj) 4 mg UNSCH PRN IV WITH DIALYSIS Last administered on 01/04/17 21:23; Start 12/31/16 at 11:45 Acetaminophen (Tylenol) 650 mg UNSCH PRN PO for headach, pain, temp > 101F; Start 12/31/16 at 11:45 Diphenhydramine HCl (Benadryl) 25 mg UNSCH PRN PO for hives/itching/anaphylaxis ; Start 12/31/16 at 11:45 Nitroglycerin (Nitrostat Sl) 0.4 mg UNSCH PRN SL CHEST PAIN; Start 12/31/16 at 11:45 Clonidine (Catapres) 0.1 mg UNSCH PRN PO for BP > 180/100 X 2 readings; Start 12/31/16 at 11:45 Gelatin (Gelfoam 12 Mm/7 Mm Top) 1 foam UNSCH PRN TOP SEE LABEL COMMENTS; Start 12/31/16 at 11:45 Epoetin Jean [place] (Epogen Inj) 10,000 units UNSCH PRN IV WITH DIALYSIS Last administered on 01/05/17 10:56; Start 12/31/16 at 11:45 Pantoprazole Sodium (Protonix) 40 mg DAILY PO Last administered on 01/06/17 07 :37; Start 01/01/17 at 09:00; Stop 01/07/17 at 12:34; Status DC Prednisone (Deltasone) 30 mg DAILY PO Last administered on 01/06/17 07:37; Start 01/02/17 at 09:00; Stop 01/07/17 at 09:45; Status DC Heparin Sodium (Porcine) (Heparin Inj) 5,000 units Q12HR SQ ; Start 01/02/17 at 21:00; Status Hold Sevelamer Carbonate (Renvela) 1,600 mg TIDAC PO Last administered on 01/06/17 16:52; Start 01/02/17 at 12:00 Oxycodone HCl (Roxicodone) 10 mg Q4H PRN PO PAIN 7-10 Last administered on 01/07 05:18; Start 01/04/17 at 09:00 Alprazolam (Xanax) 0.25 mg Q6H PRN PO ANXIETY Last administered on 01/07/17 03 :26; Start 01/05/17 at 10:15 Thrombin (Thrombin Top Soln) 10,000 units STK-MED ONCE .ROUTE Last administered on 01/07/17 11:02; Start 01/07/17 at 08:37; Stop 01/07/17 at 08:38 ; Status DC Gelatin (Gelfoam 100 Top) 1 foam STK-MED ONCE .ROUTE Last administered on 11:02; Start 01/07/17 at 08:37; Stop 01/07/17 at 08:38; Status DC Heparin Sodium (Porcine) (Heparin Inj) 10,000 units STK-MED ONCE .ROUTE Last administered on 01/07/17 11:02; Start 01/07/17 at 08:37; Stop 01/07/17 at 08:38 ; Status DC Protamine Sulfate (Protamine Sulfate Inj) 50 mg STK-MED ONCE .ROUTE ; Start at 08:37; Stop 01/07/17 at 08:38; Status DC Ketamine HCl (Ketalar Inj) 500 mg STK-MED ONCE .ROUTE ; Start 01/07/17 at 08:43 ; Stop 01/07/17 at 08:44; Status DC Vancomycin HCl 1000 mg 1,000 mg STK-MED ONCE .ROUTE Last administered on 11:02; Start 01/07/17 at 09:03; Stop 01/07/17 at 09:04; Status DC Cefazolin Sodium/ Dextrose 50 ml @ As Directed STK-MED ONCE .ROUTE ; Start 01/07 at 09:03; Stop 01/07/17 at 09:04; Status DC Sodium Chloride (NS 250 ml Inj) 250 ml @ As Directed STK-MED ONCE .ROUTE Last administered on 01/07/17 11:02; Start 01/07/17 at 09:03; Stop 01/07/17 at 09:04 ; Status DC Prednisone (Deltasone) 20 mg DAILY PO ; Start 01/08/17 at 09:00 Midazolam HCl (Versed Inj) 2 mg STK-MED ONCE .ROUTE Last administered on 09:51; Start 01/07/17 at 09:46; Stop 01/07/17 at 09:47; Status DC Famotidine (Pepcid Inj) 20 mg STK-MED ONCE .ROUTE Last administered on 09:49; Start 01/07/17 at 09:47; Stop 01/07/17 at 09:48; Status DC Bupivacaine HCl/ Epinephrine Bitart 50 ml 50 ml STK-MED ONCE INFIL Last administered on 01/07/17 11:02; Start 01/07/17 at 11:02; Stop 01/07/17 at 11:41 ; Status DC Sodium Chloride (NS 1000 ml Inj) 1,000 ml @ 100 mls/hr Q10H IV ; Start at 13:00; Stop 01/08/17 at 12:59 Aspirin (Ecotrin Ec) 325 mg DAILY PO ; Start 01/08/17 at 09:00 Pantoprazole Sodium (Protonix) 40 mg HS PO ; Start 01/07/17 at 21:00 Zolpidem Tartrate (Ambien) 5 mg HS PRN PO INSOMNIA/MAY REPEAT X1 DOSE; Start at 12:30 Docusate Calcium (Surfak) 240 mg HS PO ; Start 01/07/17 at 21:00 Morphine Sulfate (Morphine Inj) 4 mg Q4H PRN IV PUSH BREAKTHROUGH PAIN; Start 01/07/17 at 12:30 Insulin Human Regular (NovoLIN R SUPPLEMENTAL SCALE) 1 Q6HR SQ ; Start 01/07/17 at 18:00 Dextrose (D50w (Vial) Inj) 25 ml UNSCH PRN IV PUSH HYPOGLYCEMIA-SEE COMMENTS; Start 01/07/17 at 12:30 Glucagon (Glucagon Inj) 1 mg UNSCH PRN OTHER HYPOGLYCEMIA-SEE COMMENTS; Start 01/07/17 at 12:30 Midazolam HCl (Versed Inj) 4 mg STK-MED ONCE .ROUTE ; Start 01/07/17 at 13:10; Stop 01/07/17 at 13:11; Status DC Fentanyl Citrate (fentaNYL INJ) 100 mcg STK-MED ONCE .ROUTE ; Start 01/07/17 at 13:10; Stop 01/07/17 at 13:11; Status DC Miscellaneous Information ALL NURSING DEPARTME... UNSCH PRN XX SEE LABEL COMMENTS; Start 01/07/17 at 13:00; Stop 01/08/17 at 12:59 A/P Assessment and Plan A/P IgA nephropathy Acute on chronic renal failure -on prednisone taper -Cellecept was discontinued. -started on HD (will be switched to F schedule)- s/p perma-cath placement -s/p AV graft placement -monitor renal function Nephrology following:Dr. Mayer Alcoholic cirrhosis Acute abdominal pain Possible SBP Diagnostic paracentesis done;fluid culture negative so far. 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 receiving PRBC transfusion today. on epogen per nephrology will monitor H/H periodically anxiety; xanax as needed. Prophylaxis: GI Prophylaxis Protonix DVT Prophylaxis -- SCDs -no chemical prophylaxis due to thrombocytopenia. will dc telemetry. Sachi Medeiros MD Jan 07, 2017 13:44
[2017-01-07] MEDS ORDERED: *morphine SULFATE 8 MG/ML PERIprocedure ONLY ONE (14:09)
[2017-01-07] MEDS ORDERED: *ONDANSETRON 4 MG VIAL PERIprocedural Use ONLY ONE (14:40)
--- NOTE | 2017-01-07 15:02 | EKG ---
Date Performed: 01/06/2017 Time Performed: 13:47:25 PTAGE: 46 years EKG: Sinus rhythm NORMAL ECG Compared to prior tracing no significant change PREVIOUS TRACING : 12/25/2016 20.14 DOCTOR: Zamzam Tavares Interpretating Date/Time 01/07/2017 14:54:33
[2017-01-07] MEDS: INSULIN NovoLIN REGULAR SUPPLEMENTAL SCALE SQ SCH (18:00)
[2017-01-07] MEDS: DOCUSATE CALCIUM 240 MG CAP PO SCH (20:50)
[2017-01-07] MEDS: PANTOPRAZOLE SOD 40 MG DELAYED RELEASE TAB PO SCH (20:50)
[2017-01-07] MEDS: SODIUM CHLORIDE 0.9% FLUSH 5 ML FLUSH FLUSH SCH (20:51)
[2017-01-08] VITALS (27 sets, daily range): BP systolic 124–147; BP diastolic 74–88; PULSE 80–127; RESP 14–20; TEMP 98.3–99.6; O2SAT 94–98
[2017-01-08] MEDS: ZOLPIDEM TARTRATE 5 MG TAB PO PRN (00:37)
[2017-01-08] MEDS: ALPRAZolam 0.25 MG TAB PO PRN ×4 (00:37→23:37)
[2017-01-08] MEDS: MORPHINE SULFATE 4 MG/ML INJ IV PUSH PRN ×3 (04:22→23:37)
[2017-01-08] MEDS: CEFEPIME INJ 1,000 MG in SODIUM CHLORIDE 0.9% INJ 100 ML IV SCH (04:22)
[2017-01-08 06:21] LABS: ALKALINE PHOSPHATASE 81 U/L (45-117); ALT (GPT) 45 U/L (12-78); ANION GAP 10 MEQ/L (5-15); AST (GOT) 48 U/L (15-37); BICARBONATE 31.1 MEQ/L (21.0-32.0); BLOOD UREA NITROGEN 66 MG/DL (7-18); CHLORIDE 98 MEQ/L (98-107); GLOMERULAR FILTRATION RATE 20 ML/MIN (>89); POTASSIUM 4.2 MEQ/L (3.5-5.1); SODIUM (NA) 139 MEQ/L (136-145); TOTAL BILIRUBIN ADULT 1.8 MG/DL (0.2-1.0)
[2017-01-08] MEDS: SEVELAMER CARBONATE 800 MG TAB PO SCH ×3 (08:00→16:52)
--- NOTE | 2017-01-08 08:35 | HHI.PR ---
Subjective Remarks seen in HD. resting comfortably with no distress. has mild pain to the left arm. otherwise no other complaints. Objective Vitals Vital Signs Date Time Temp Pulse Resp B/P Pulse Ox O2 Delivery O2 Flow Rate FiO2 01/08/17 08:05 98.5 98 20 140/80 98 01/08/17 07:00 84 01/08/17 04:00 98.7 88 18 140/88 97 01/08/17 00:00 98.8 82 14 140/86 94 01/07/17 21:40 97 21 01/07/17 20:00 98.9 87 16 136/72 92 01/07/17 18:00 106 01/07/17 17:00 79 01/07/17 16:00 93 01/07/17 15:15 82 01/07/17 15:15 97.7 82 20 143/86 98 01/07/17 14:30 81 12 162/106 95 Room Air 01/07/17 14:00 74 12 145/81 95 Room Air 01/07/17 13:45 79 15 152/87 95 Room Air 01/07/17 13:30 98.0 79 12 156/86 99 Room Air 01/07/17 13:15 70 14 156/89 99 01/07/17 13:00 70 25 143/83 99 Nasal Cannula 3 01/07/17 12:57 98.7 85 19 147/83 99 Nasal Cannula 3 I/O 01/07/17 01/07/17 01/07/17 01/08/17 01/08/17 01/08/17 07:00 15:00 23:00 07:00 15:00 23:00 Intake Total 1000 ml 360 ml 340 ml Output Total 975 ml 25 ml 500 ml 900 ml Balance -975 ml 975 ml -140 ml -560 ml Intake Oral 360 ml 240 ml IV Total 100 ml Platelets 600 ml Other 400 ml Output Urine Total 975 ml 500 ml 900 ml Estimated Blood Loss 25 ml Result Diagram: 01/07/17 0600 01/08/17 0445 Imaging Last Impressions Catheter Placement X-Ray 12/31/16 0951 Signed Impressions: Service Date/Time: Saturday, December 31, 2016 11:21 - CONCLUSION: Uncomplicated PermaCath placement as above. Bakari Amado MD Abdomen/Pelvis CT 12/28/16 0000 Signed Impressions: Service Date/Time: Wednesday, December 28, 2016 03:28 - CONCLUSION: Liver cirrhosis and stigmata of portal hypertension. Abundant ascites. Small bilateral pleural effusions and left base pneumonia. Derek Krause MD Abdomen Ultrasound 12/28/16 0000 Signed Impressions: Service Date/Time: Wednesday, December 28, 2016 06:43 - CONCLUSION: 1. Flow within the main portal vein is not confirmed with certainty which raises the possibility of portal vein thrombus. CT or MRI of the abdomen with contrast may be helpful for father evaluation of this finding. 2. Small heterogeneous nodular liver consistent with cirrhosis. 3. Ascites. 4. Splenomegaly. 5. Distended thick walled gallbladder with pericholecystic fluid and possible stone or polyp in the neck. Clinical correlation is recommended to rule out acute cholecystitis. 6. Poor visualization of the pancreas and right kidney due to shadowing bowel gas. Veto Cortez MD Chest X-Ray [id number] Signed Impressions: Service Date/Time: Sunday, December 25, 2016 21:45 - CONCLUSION: Cardiomegaly without evidence of acute cardiopulmonary process. Bakari Amado MD Objective Remarks GENERAL: This is a well-nourished, well-developed patient, in no apparent distress. CARDIOVASCULAR: Regular rate and regular rhythm without murmurs, gallops, or rubs. RESPIRATORY: Clear to auscultation. Breath sounds equal bilaterally. No wheezes , rales, or rhonchi. GASTROINTESTINAL: Abdomen soft, non-tender, distended. Normal, active bowel sounds MUSCULOSKELETAL: Extremities with bilateral pedal edema. NEURO: Alert & Oriented x4 to person, place, time, situation. Moves all ext x4 Procedures paracentesis permacath placement AV graft placement Medications and IVs Current Medications IV Flush (NS Flush) 2 ml UNSCH PRN FLUSH FLUSH AFTER USING IV ACCESS; Start at 23:15 IV Flush (NS Flush) 2 ml BID FLUSH Last administered on 01/07/17 20:51; Start 12/26/16 at 09:00 Heparin Sodium (Porcine) (Heparin Inj) 5,000 units Q8H SQ Last administered on 12/28/16 09:23; Start 12/26/16 at 00:00; Stop 12/28/16 at 14:41; Status DC Naloxone HCl (Narcan Inj) 0.4 mg UNSCH PRN IV SEE LABEL COMMENTS; Start at 23:15 Acetaminophen (Tylenol) 650 mg Q4H PRN PO headaches/pain/ fever >101 Last administered on 12/28/16 05:54; Start 12/26/16 at 05:15 Diphenhydramine HCl (Benadryl) 25 mg ONCE ONCE PO Last administered on 05:32; Start 12/26/16 at 05:15; Stop 12/26/16 at 05:16; Status DC Furosemide (Lasix) 40 mg DAILY PO ; Start 12/26/16 at 09:00; Stop 12/26/16 at 11: 08; Status DC Mycophenolate Mofetil (Cellcept) 500 mg BID@,18 PO Last administered on 05:06; Start 12/26/16 at 18:00; Stop 12/27/16 at 11:02; Status DC Nifedipine (Procardia Xl) 60 mg DAILY PO Last administered on 12/31/16 09:25; Start 12/26/16 at 09:00; Stop 01/01/17 at 09:55; Status DC Pantoprazole Sodium (Protonix) 40 mg DAILY PO ; Start 12/26/16 at 09:00; Stop 12/26/16 at 11:08; Status DC Prednisone (Deltasone) 20 mg DAILY PO ; Start 12/26/16 at 09:00; Stop 12/26/16 at 09:00; Status DC Alprazolam (Xanax) 0.125 mg Q6H PRN PO ANXIETY Last administered on 12/27/16 16 :34; Start 12/26/16 at 07:45; Stop 12/28/16 at 14:45; Status DC Miscellaneous (Pill Splitter) 1 ea UNSCH PRN OTHER SEE LABEL COMMENTS Last administered on 12/30/16 17:40; Start 12/26/16 at 08:00; Stop 01/07/17 at 12:36; Status DC Prednisone (Deltasone) 40 mg DAILY PO ; Start 12/26/16 at 09:00; Stop 12/26/16 at 11:08; Status DC Prednisone (Deltasone) 60 mg DAILY PO Last administered on 12/28/16 09:23; Start 12/27/16 at 09:00; Stop 12/28/16 at 20:05; Status DC Prednisone (Deltasone) 20 mg ONCE ONCE PO Last administered on 12/26/16 12:30 ; Start 12/26/16 at 11:15; Stop 12/26/16 at 11:16; Status DC Bumetanide (Bumex Inj) 2 mg BID@18 IV PUSH Last administered on 12/28/16 09: 22; Start 12/26/16 at 18:00; Stop 12/28/16 at 11:20; Status DC Diphenhydramine HCl (Benadryl) 25 mg HS PRN PO insomnia Last administered on 23:41; Start 12/27/16 at 01:45; Stop 12/28/16 at 14:46; Status DC Mycophenolate Mofetil (Cellcept) 1,000 mg BID@18 PO Last administered on 12/28 18:21; Start 12/27/16 at 18:00; Stop 12/28/16 at 20:05; Status DC Acetaminophen/ Hydrocodone Bitart ([place] 5-325 Mg) 1 tab Q6H PRN PO PAIN NOT RELIEVED BY TYLENOL Last administered on 12/28/16 11:37; Start 12/27/16 at 16:00 ; Stop 12/28/16 at 14:46; Status DC Albuterol Sulfate 2.5 mg 2.5 mg Q6HR NEB PRN INH SHORTNESS OF BREATH Last administered on 12/27/16 20:12; Start 12/27/16 at 16:00 Cefepime HCl/ Sodium Chloride (Maxipime Inj/NS Inj) 100 ml @ 200 mls/hr Q24H IV Last administered on 01/08/17 04:22; Start 12/28/16 at 05:00; Stop 01/09/17 at 08:00 Morphine Sulfate 2 mg 2 mg Q3H PRN IV PUSH breakthrough pain Last administered on 12/28/16 09:23; Start 12/28/16 at 05:30; Stop 12/28/16 at 14:46; Status DC Metronidazole 100 ml @ 100 mls/hr Q6H IV Last administered on 01/01/17 06:33; Start 12/28/16 at 06:00; Stop 01/01/17 at 08:11; Status DC Vancomycin HCl/ Sodium Chloride (Vancomycin Inj/ NS 500 ml Inj) 515 ml @ 257.5 mls/ hr ONCE ONCE IV Last administered on 12/28/16 08:40; Start 12/28/16 at 06: 45; Stop 12/28/16 at 08:44; Status DC Sevelamer Carbonate 800 mg 800 mg TIDAC PO Last administered on 01/01/17 08:16 ; Start 12/28/16 at 12:00; Stop 01/02/17 at 09:10; Status DC Bumetanide 100 ml @ 8 mls/hr CONTINUOUS IV Last administered on 12/28/16 15:11 ; Start 12/28/16 at 13:30; Stop 12/28/16 at 17:24; Status DC Heparin Sodium/ Dextrose (Heparin-D5W Inj) 250 ml @ 0 mls/hr TITRATE IV Last administered on 12/28/16 15:12; Start 12/28/16 at 14:45; Stop 12/28/16 at 21:51; Status DC Hydromorphone HCl (Dilaudid Pf Inj) 0.5 mg Q4H PRN IV PUSH pain 7-10 or not taking po Last administered on 01/04/17 03:48; Start 12/28/16 at 14:45; Status Hold Oxycodone HCl (Roxicodone) 5 mg Q4H PRN PO pain 3-6 Last administered on 19:57; Start 12/28/16 at 14:45 Pantoprazole Sodium (Protonix Inj) 40 mg Q24H IV PUSH Last administered on 15:00; Start 12/28/16 at 15:00; Stop 01/01/17 at 08:12; Status DC Bumetanide (Bumetanide) 2 mg BID@,18 PO Last administered on 01/07/17 18:13 ; Start 12/28/16 at 18:00 Mycophenolate Mofetil (Cellcept) 500 mg BID@06,18 PO Last administered on 05:22; Start 12/29/16 at 06:00; Stop 01/01/17 at 09:15; Status DC Prednisone 40 mg 40 mg DAILY PO Last administered on 01/01/17 08:15; Start 12/29 at 09:00; Stop 01/01/17 at 09:52; Status DC Heparin Sodium/ Dextrose (Heparin-D5W Inj) 250 ml @ 0 mls/hr TITRATE IV Last administered on 12/30/16 01:58; Start 12/28/16 at 22:00; Stop 12/30/16 at 12:16; Status DC Alprazolam (Xanax) 0.5 mg NOW PO Last administered on 12/28/16 23:22; Start 12/28/16 at 23:15; Stop 12/29/16 at 00:45; Status DC Ondansetron HCl (Zofran Inj) 4 mg Q6H PRN IV PUSH NAUSEA Last administered on 12:45; Start 12/29/16 at 09:30 Alprazolam (Xanax) 0.125 mg Q12HR PRN PO ANXIETY Last administered on 12/30/16 01:39; Start 12/29/16 at 13:00; Stop 12/30/16 at 07:52; Status DC Alprazolam (Xanax) 0.125 mg Q6HR PRN PO ANXIETY Last administered on 01/05/17 04:33; Start 12/30/16 at 12:00; Stop 01/05/17 at 10:02; Status DC Miscellaneous (Pill Splitter) 1 ea UNSCH PRN OTHER SEE LABEL COMMENTS; Start at 08:00 Albumin Human (Albumin 25% Inj) 12.5 gm Q12H IV Last administered on 01/07/17 20:47; Start 12/30/16 at 20:00 Midazolam HCl (Versed Inj) 5 mg STK-MED ONCE .ROUTE Last administered on 10:57; Start 12/31/16 at 10:57; Stop 12/31/16 at 10:58; Status DC Fentanyl Citrate (fentaNYL INJ) 250 mcg STK-MED ONCE .ROUTE Last administered on 12/31/16 10:57; Start 12/31/16 at 10:57; Stop 12/31/16 at 10:58; Status DC Vancomycin HCl (Vancomycin Inj) 1,000 mg STK-MED ONCE .ROUTE Last administered on 12/31/16 10:58; Start 12/31/16 at 10:58; Stop 12/31/16 at 10:59; Status DC Heparin Sodium (Porcine) (*HEPARIN INJ Periprocedural ONLY) 10,000 units STK- MED ONCE .ROUTE Last administered on 12/31/16 11:40; Start 12/31/16 at 11:19; Stop 12/31/16 at 11:20; Status DC Lidocaine/ Epinephrine 20 ml 20 ml STK-MED ONCE .ROUTE Last administered on 12/31 11:25; Start 12/31/16 at 11:19; Stop 12/31/16 at 11:20; Status DC Sodium Chloride (NS 1000 ml Inj) 1,000 ml @ 0 mls/hr Q0M PRN IV For Prime & Rinse Back Last administered on 12/31/16 17:02; Start 12/31/16 at 11:44 Heparin Sodium (Porcine) 8000 units 8,000 units UNSCH PRN IVF WITH DIALYSIS Last administered on 01/07/17 11:26; Start 12/31/16 at 11:45 Sodium Chloride 1,000 ml @ 200 mls/hr Q5H PRN IV WITH DIALYSIS Last administered on 01/05/17 10:54; Start 12/31/16 at 11:44 Sodium Chloride (NS 1000 ml Inj) 1,000 ml @ 0 mls/hr Q0M PRN IV WITH DIALYSIS Last administered on 12/31/16 17:03; Start 12/31/16 at 11:44 Mannitol (Mannitol Inj) 12.5 gm UNSCH PRN IV WITH DIALYSIS; Start 12/31/16 at 11 :45 Albumin Human (Albumin 25% Inj) 25 gm UNSCH PRN IV WITH DIALYSIS; Start at 11:45 IV Flush (NS Flush) 5 ml UNSCH PRN IVF WITH DIALYSIS Last administered on 17:01; Start 12/31/16 at 11:45 Heparin Sodium (Porcine) (Heparin Inj) UNSCH PRN .XX WITH DIALYSIS Last administered on 01/05/17 10:55; Start 12/31/16 at 11:45 Gentamicin Sulfate (Gentamicin (Dialysis) Inj) 20 mg UNSCH PRN IV WITH DIALYSIS Last administered on 01/05/17 10:55; Start 12/31/16 at 11:45 Ondansetron HCl (Zofran Inj) 4 mg UNSCH PRN IV WITH DIALYSIS Last administered on 01/04/17 21:23; Start 12/31/16 at 11:45 Acetaminophen (Tylenol) 650 mg UNSCH PRN PO for headach, pain, temp > 101F; Start 12/31/16 at 11:45 Diphenhydramine HCl (Benadryl) 25 mg UNSCH PRN PO for hives/itching/anaphylaxis ; Start 12/31/16 at 11:45 Nitroglycerin (Nitrostat Sl) 0.4 mg UNSCH PRN SL CHEST PAIN; Start 12/31/16 at 11:45 Clonidine (Catapres) 0.1 mg UNSCH PRN PO for BP > 180/100 X 2 readings; Start 12/31/16 at 11:45 Gelatin (Gelfoam 12 Mm/7 Mm Top) 1 foam UNSCH PRN TOP SEE LABEL COMMENTS; Start 12/31/16 at 11:45 Epoetin [place] (Epogen Inj) 10,000 units UNSCH PRN IV WITH DIALYSIS Last administered on 01/05/17 10:56; Start 12/31/16 at 11:45 Pantoprazole Sodium (Protonix) 40 mg DAILY PO Last administered on 01/06/17 07 :37; Start 01/01/17 at 09:00; Stop 01/07/17 at 12:34; Status DC Prednisone (Deltasone) 30 mg DAILY PO Last administered on 01/06/17 07:37; Start 01/02/17 at 09:00; Stop 01/07/17 at 09:45; Status DC Heparin Sodium (Porcine) (Heparin Inj) 5,000 units Q12HR SQ ; Start 01/02/17 at 21:00; Status Hold Sevelamer Carbonate (Renvela) 1,600 mg TIDAC PO Last administered on 01/07/17 18:13; Start 01/02/17 at 12:00 Oxycodone HCl (Roxicodone) 10 mg Q4H PRN PO PAIN 7-10 Last administered on 01/08 05:49; Start 01/04/17 at 09:00 Alprazolam (Xanax) 0.25 mg Q6H PRN PO ANXIETY Last administered on 01/08/17 07 :56; Start 01/05/17 at 10:15 Thrombin (Thrombin Top Soln) 10,000 units STK-MED ONCE .ROUTE Last administered on 01/07/17 11:02; Start 01/07/17 at 08:37; Stop 01/07/17 at 08:38 ; Status DC Gelatin (Gelfoam 100 Top) 1 foam STK-MED ONCE .ROUTE Last administered on 11:02; Start 01/07/17 at 08:37; Stop 01/07/17 at 08:38; Status DC Heparin Sodium (Porcine) (Heparin Inj) 10,000 units STK-MED ONCE .ROUTE Last administered on 01/07/17 11:02; Start 01/07/17 at 08:37; Stop 01/07/17 at 08:38 ; Status DC Protamine Sulfate (Protamine Sulfate Inj) 50 mg STK-MED ONCE .ROUTE ; Start at 08:37; Stop 01/07/17 at 08:38; Status DC Ketamine HCl (Ketalar Inj) 500 mg STK-MED ONCE .ROUTE ; Start 01/07/17 at 08:43 ; Stop 01/07/17 at 08:44; Status DC Vancomycin HCl 1000 mg 1,000 mg STK-MED ONCE .ROUTE Last administered on 11:02; Start 01/07/17 at 09:03; Stop 01/07/17 at 09:04; Status DC Cefazolin Sodium/ Dextrose 50 ml @ As Directed STK-MED ONCE .ROUTE ; Start 01/07 at 09:03; Stop 01/07/17 at 09:04; Status DC Sodium Chloride (NS 250 ml Inj) 250 ml @ As Directed STK-MED ONCE .ROUTE Last administered on 01/07/17 11:02; Start 01/07/17 at 09:03; Stop 01/07/17 at 09:04 ; Status DC Prednisone (Deltasone) 20 mg DAILY PO ; Start 01/08/17 at 09:00 Midazolam HCl (Versed Inj) 2 mg STK-MED ONCE .ROUTE Last administered on 09:51; Start 01/07/17 at 09:46; Stop 01/07/17 at 09:47; Status DC Famotidine (Pepcid Inj) 20 mg STK-MED ONCE .ROUTE Last administered on 09:49; Start 01/07/17 at 09:47; Stop 01/07/17 at 09:48; Status DC Bupivacaine HCl/ Epinephrine Bitart 50 ml 50 ml STK-MED ONCE INFIL Last administered on 01/07/17 11:02; Start 01/07/17 at 11:02; Stop 01/07/17 at 11:41 ; Status DC Sodium Chloride (NS 1000 ml Inj) 1,000 ml @ 100 mls/hr Q10H IV ; Start at 13:00; Stop 01/08/17 at 12:59 Aspirin (Ecotrin Ec) 325 mg DAILY PO ; Start 01/08/17 at 09:00 Pantoprazole Sodium (Protonix) 40 mg HS PO Last administered on 01/07/17 20:50 ; Start 01/07/17 at 21:00 Zolpidem Tartrate (Ambien) 5 mg HS PRN PO INSOMNIA/MAY REPEAT X1 DOSE Last administered on 01/08/17 00:37; Start 01/07/17 at 12:30 Docusate Calcium (Surfak) 240 mg HS PO Last administered on 01/07/17 20:50; Start 01/07/17 at 21:00 Morphine Sulfate (Morphine Inj) 4 mg Q4H PRN IV PUSH BREAKTHROUGH PAIN Last administered on 01/08/17 07:55; Start 01/07/17 at 12:30 Insulin Human Regular (NovoLIN R SUPPLEMENTAL SCALE) 1 Q6HR SQ ; Start 01/07/17 at 18:00 Dextrose (D50w (Vial) Inj) 25 ml UNSCH PRN IV PUSH HYPOGLYCEMIA-SEE COMMENTS; Start 01/07/17 at 12:30 Glucagon (Glucagon Inj) 1 mg UNSCH PRN OTHER HYPOGLYCEMIA-SEE COMMENTS; Start 01/07/17 at 12:30 Midazolam HCl (Versed Inj) 4 mg STK-MED ONCE .ROUTE ; Start 01/07/17 at 13:10; Stop 01/07/17 at 13:11; Status DC Fentanyl Citrate (fentaNYL INJ) 100 mcg STK-MED ONCE .ROUTE ; Start 01/07/17 at 13:10; Stop 01/07/17 at 13:11; Status DC Miscellaneous Information ALL NURSING DEPARTME... UNSCH PRN XX SEE LABEL COMMENTS; Start 01/07/17 at 13:00; Stop 01/08/17 at 12:59 Morphine Sulfate (*morphine INJ PERIprocedure ONLY) 8 mg STK-MED ONCE .ROUTE ; Start 01/07/17 at 14:09; Stop 01/07/17 at 14:10; Status DC Ondansetron HCl (*ZOFRAN INJ PERIprocedural ONLY) 4 mg STK-MED ONCE .ROUTE ; Start 01/07/17 at 14:40; Stop 01/07/17 at 14:41; Status DC A/P Assessment and Plan A/P IgA nephropathy Acute on chronic renal failure -on prednisone taper -Cellecept was discontinued. -started on HD on TTS schedule)- s/p perma-cath placement and AV graft placement -monitor renal function Nephrology following:Dr. Mayer Alcoholic cirrhosis Acute abdominal pain Possible SBP Diagnostic paracentesis done;fluid culture negative so far. 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 s/p PRBC transfusion. on epogen per nephrology will monitor H/H periodically anxiety; xanax as needed. Prophylaxis: GI Prophylaxis Protonix DVT Prophylaxis -- SCDs -no chemical prophylaxis due to thrombocytopenia. Sachi Meediros MD Jan 08, 2017 08:35
--- NOTE | 2017-01-08 09:30 | HHI.NPPN ---
Subjective Complaints: Obesity General Problems: Edema Renal Failure: Chronic, Acute Interval History Seen during dialysis. Had AVF placed yesterday. (Helen Gaspar) Review of Systems General Constitutional: Fatigue (Helen Gaspar) Cardiovascular Cardiac: Edema (Helen Gaspar) Musculoskeletal MS: Pain/Stiffness MS Remarks left arm (Helen Gaspar) Objective Data Data 01/07/17 01/08/17 19:00 07:00 Intake Total 1360 ml 340 ml Output Total 525 ml 900 ml Balance 835 ml -560 ml Intake Oral 360 ml 240 ml IV Total 100 ml Platelets 600 ml Other 400 ml Output Urine Total 500 ml 900 ml Estimated Blood Loss 25 ml Vital Signs Date Time Temp Pulse Resp B/P Pulse Ox O2 Delivery O2 Flow Rate FiO2 01/08/17 08:05 98.5 98 20 140/80 98 01/08/17 07:00 84 01/08/17 04:00 98.7 88 18 140/88 97 01/08/17 00:00 98.8 82 14 140/86 94 01/07/17 21:40 97 21 01/07/17 20:00 98.9 87 16 136/72 92 01/07/17 18:00 106 01/07/17 17:00 79 01/07/17 16:00 93 01/07/17 15:15 82 01/07/17 15:15 97.7 82 20 143/86 98 01/07/17 14:30 81 12 162/106 95 Room Air 01/07/17 14:00 74 12 145/81 95 Room Air 01/07/17 13:45 79 15 152/87 95 Room Air 01/07/17 13:30 98.0 79 12 156/86 99 Room Air 01/07/17 13:15 70 14 156/89 99 01/07/17 13:00 70 25 143/83 99 Nasal Cannula 3 01/07/17 12:57 98.7 85 19 147/83 99 Nasal Cannula 3 (Helen Gaspar) -: 01/07/17 0600 01/08/17 0445 Tubes & Lines: Perma-Cath (Helen Gaspar) Physical Exam General Appearance: Well Developed, Well Nourished, No Acute Distress, Comfortable, Obese (Helen Gaspar) Throat Throat Exam: Oral Mucosa [place] & Moist (Helen Gaspar) Pulmonary Resp Exam: Breath Sounds Equal, No Distress, Decreased Bases (Helen Gaspar) Cardiology CV Exam: Regular, Normal Sinus Rhythm (Helen Gaspar) Gastrointestinal/Abdomen GI Exam: Soft, Non-Tender (Helen Gaspar) Musculoskeletal MS Exam: Joints Intact, Normal Tone (Helen Gaspar) Integumentary Skin Exam: Clear, Warm, Dry, Intact Skin Remarks AVF left AC (Helen Gaspar) Extremeties Extremities Exam: Pedal Pulses Palpable, Moderate Edema, Pitting Edema, Dependent Edema (Helen Gaspar) Neurologic Neuro Exam: Alert, Awake, Oriented, Speech Clear, Moving All Extremities ( Helen Gaspar) Psychiatric Psych Exam: Appropriate Responses (Helen Gaspar) Assessment/Plan Discussed Condition With: Patient Assessment Summary: Fluid/Volume Overload, Hypertension, End Stage Renal Disease Problem List: (1) Acute renal failure Plan: in a pt with ESRD due to Iga nephropathy with RPGN T-Th-Sat dialysis he still makes some urine, but is dialysis dependent seen during dialysis on a 3k, 400 BFR, goal 5L continue Bumex po BID cellcept stopped, on prednisone taper permcath in place, s/p AVF placement 01/07 goal is to go to [facility] when approved (2) RPGN (rapidly progressive glomerulonephritis) Plan: see above (3) IgA nephropathy determined by renal biopsy Plan: change immunosuppressive medications as above monitor renal function management as above he has progressed to ESRD (4) Thrombocytopenia Plan: Platelet count low - continue to monitor. it was thought cirrhosis may have been the etiology no active bleeding (5) Leukocytosis Plan: GI signed off continue Abx until 01/09 monitor clinically , carefully monitor drug levels when appropriate Plan (Helen Gaspar) Plan patient was seen and examined. Agree with above assessment and plan. His urine output has improved. Creatinine did improve today although there was no dialysis yesterday. Continue Bumex. Has massive fluid overload. Dialysis today with aggressive fluid removal. (Fredo Mayer MD) Problem Qualifiers (1) Acute renal failure: Qualified Code: N17.9 - Acute renal failure, unspecified acute renal failure type Helen Gaspar Jan 08, 2017 09:29 Fredo Mayer MD Jan 08, 2017 09:38
--- NOTE | 2017-01-08 09:39 | PD.VS.PN ---
Subjective POD #: 1 Procedure(s): right upper extremity BC AVF. Subjective/Hospital Course Discussed possibly creating left upper extremity avf on sunday 01/07 if OR space available. Patient without complaints. Understands risks of steal and swelling with creation of avf. Objective Cardiac: right arm with thrill and intact incision. Right arm with some ecchymosis. Laboratory Laboratory Tests Test 01/07/17 01/07/17 01/07/17 01/08/17 10:08 12:01 12:24 04:45 Blood Type A POSITIVE A POSITIVE Blood Bank Comment Antibody Screen NEGATIVE Crossmatch Leukocyte-Reduced Red Blood Cells Sodium Level 139 Potassium Level 4.2 Chloride Level 98 Carbon Dioxide Level 31.1 Anion Gap 10 Blood Urea Nitrogen 66 Creatinine 3.38 Estimat Glomerular Filtration 20 Rate Random Glucose 86 Calcium Level 7.5 Total Bilirubin 1.8 Aspartate Amino Transf 48 (AST/SGOT) Alanine Aminotransferase 45 (ALT/SGPT) Alkaline Phosphatase 81 Total Protein 4.8 Albumin 2.7 Assessment and Plan Assessment: (1) Renal failure Status: Acute Plan Patient is 46 year old male with ESRD requiring hemodialysis. Status post right upper extremity BC avf. feels patent and incision intact. Esvin Reed DO, FACS [employer] [facility] NEMO/Esvin Freeman DO Jan 08, 2017 09:39
[2017-01-08] MEDS: HEPARIN SODIUM - IV 10,000 UNITS/10 ML VIAL PRN (10:22)
[2017-01-08] MEDS: GENTAMICIN SULFATE (DIALYSIS USE ONLY) 20 MG/2 ML VIAL IV PRN (10:22)
[2017-01-08] MEDS: SODIUM CHLOR 0.9% 1000 ML INJ 1,000 ML IV PRN (10:22)
[2017-01-08] MEDS: EPOETIN ALFA 10,000 UNITS/ML VIAL IV PRN (10:23)
[2017-01-08 11:08] LABS: HEMATOCRIT 33.2 % (39.0-51.0)
[2017-01-08] MEDS: INSULIN NovoLIN REGULAR SUPPLEMENTAL SCALE SQ SCH ×4 (12:00→23:46)
[2017-01-08] MEDS: predniSONE 20 MG TAB PO SCH (12:29)
[2017-01-08] MEDS: ASPIRIN EC 325 MG TABEC PO SCH (12:29)
[2017-01-08] MEDS: BUMETANIDE 1 MG TAB PO SCH ×2 (12:29→18:52)
[2017-01-08] MEDS: ALBUMIN HUMAN 25% 12.5 GM/50 ML BAGP IV SCH ×2 (12:30→20:46)
[2017-01-08] MEDS: SODIUM CHLORIDE 0.9% FLUSH 5 ML FLUSH FLUSH SCH ×2 (12:30→20:47)
[2017-01-08] MEDS: PANTOPRAZOLE SOD 40 MG DELAYED RELEASE TAB PO SCH (20:46)
[2017-01-08] MEDS: DOCUSATE CALCIUM 240 MG CAP PO SCH (20:46)
[2017-01-09] VITALS (21 sets, daily range): BP systolic 125–146; BP diastolic 74–88; PULSE 76–115; RESP 16–18; TEMP 98–98.5; O2SAT 94–99
[2017-01-09] MEDS: ZOLPIDEM TARTRATE 5 MG TAB PO PRN (00:46)
[2017-01-09] MEDS: INSULIN NovoLIN REGULAR SUPPLEMENTAL SCALE SQ SCH ×3 (06:00→18:24)
[2017-01-09] MEDS: CEFEPIME INJ 1,000 MG in SODIUM CHLORIDE 0.9% INJ 100 ML IV SCH (06:08)
[2017-01-09] MEDS: MORPHINE SULFATE 4 MG/ML INJ IV PUSH PRN ×3 (06:10→19:50)
[2017-01-09] MEDS: ALPRAZolam 0.25 MG TAB PO PRN ×3 (06:11→19:51)
[2017-01-09] MEDS: BUMETANIDE 1 MG TAB PO SCH ×2 (09:28→17:11)
[2017-01-09] MEDS: ASPIRIN EC 325 MG TABEC PO SCH (09:28)
[2017-01-09] MEDS: SEVELAMER CARBONATE 800 MG TAB PO SCH ×3 (09:28→17:11)
[2017-01-09] MEDS: predniSONE 20 MG TAB PO SCH (09:28)
[2017-01-09] MEDS: ALBUMIN HUMAN 25% 12.5 GM/50 ML BAGP IV SCH ×2 (09:29→19:51)
[2017-01-09] MEDS: SODIUM CHLORIDE 0.9% FLUSH 5 ML FLUSH FLUSH SCH ×2 (09:29→19:51)
--- NOTE | 2017-01-09 09:39 | HHI.PR ---
Subjective Remarks f/u; ESRD resting comfortably with no distress. denies pain. no new complaints. Objective Vitals Vital Signs Date Time Temp Pulse Resp B/P Pulse Ox O2 Delivery O2 Flow Rate FiO2 01/09/17 09:34 18 01/09/17 03:00 98.1 78 16 145/86 96 01/08/17 23:00 16 137/77 97 01/08/17 19:00 99.6 95 16 124/74 96 01/08/17 18:00 100 01/08/17 17:00 101 01/08/17 16:34 99.1 103 20 126/82 94 01/08/17 16:00 95 01/08/17 15:00 127 01/08/17 14:00 100 01/08/17 13:00 94 01/08/17 12:30 98.3 95 20 147/82 98 01/08/17 12:00 88 01/08/17 11:00 95 01/08/17 10:00 80 I/O 01/08/17 01/08/17 01/08/17 01/09/17 01/09/17 01/09/17 07:00 15:00 23:00 07:00 15:00 23:00 Intake Total 340 ml 960 ml 340 ml Output Total 900 ml 5000 ml 500 ml 350 ml Balance -560 ml -5000 ml 460 ml -10 ml Intake Oral 240 ml 960 ml 240 ml IV Total 100 ml 100 ml Output Urine Total 900 ml 500 ml 350 ml Hemodialysis 5000 ml Result Diagram: 01/08/17 0955 01/08/17 0445 Imaging Last Impressions Catheter Placement X-Ray 12/31/16 0951 Signed Impressions: Service Date/Time: Saturday, December 31, 2016 11:21 - CONCLUSION: Uncomplicated PermaCath placement as above. Bakari Amado MD Abdomen/Pelvis CT 12/28/16 0000 Signed Impressions: Service Date/Time: Wednesday, December 28, 2016 03:28 - CONCLUSION: Liver cirrhosis and stigmata of portal hypertension. Abundant ascites. Small bilateral pleural effusions and left base pneumonia. Derek Krause MD Abdomen Ultrasound 12/28/16 0000 Signed Impressions: Service Date/Time: Wednesday, December 28, 2016 06:43 - CONCLUSION: 1. Flow within the main portal vein is not confirmed with certainty which raises the possibility of portal vein thrombus. CT or MRI of the abdomen with contrast may be helpful for father evaluation of this finding. 2. Small heterogeneous nodular liver consistent with cirrhosis. 3. Ascites. 4. Splenomegaly. 5. Distended thick walled gallbladder with pericholecystic fluid and possible stone or polyp in the neck. Clinical correlation is recommended to rule out acute cholecystitis. 6. Poor visualization of the pancreas and right kidney due to shadowing bowel gas. Veto Cortez MD Chest X-Ray [id number]/[id number] Signed Impressions: Service Date/Time: Sunday, December 25, 2016 21:45 - CONCLUSION: Cardiomegaly without evidence of acute cardiopulmonary process. Bakari Amado MD Objective Remarks GENERAL: This is a well-nourished, well-developed patient, in no apparent distress. CARDIOVASCULAR: Regular rate and regular rhythm without murmurs, gallops, or rubs. RESPIRATORY: Clear to auscultation. Breath sounds equal bilaterally. No wheezes , rales, or rhonchi. GASTROINTESTINAL: Abdomen soft, non-tender, distended. Normal, active bowel sounds MUSCULOSKELETAL: Extremities with bilateral pedal edema. NEURO: Alert & Oriented x4 to person, place, time, situation. Moves all ext x4 Procedures paracentesis permacath placement AV graft placement Medications and IVs Current Medications IV Flush (NS Flush) 2 ml UNSCH PRN FLUSH FLUSH AFTER USING IV ACCESS; Start at 23:15 IV Flush (NS Flush) 2 ml BID FLUSH Last administered on 01/09/17 09:29; Start 12/26/16 at 09:00 Heparin Sodium (Porcine) (Heparin Inj) 5,000 units Q8H SQ Last administered on 12/28/16 09:23; Start 12/26/16 at 00:00; Stop 12/28/16 at 14:41; Status DC Naloxone HCl (Narcan Inj) 0.4 mg UNSCH PRN IV SEE LABEL COMMENTS; Start at 23:15 Acetaminophen (Tylenol) 650 mg Q4H PRN PO headaches/pain/ fever >101 Last administered on 12/28/16 05:54; Start 12/26/16 at 05:15 Diphenhydramine HCl (Benadryl) 25 mg ONCE ONCE PO Last administered on 05:32; Start 12/26/16 at 05:15; Stop 12/26/16 at 05:16; Status DC Furosemide (Lasix) 40 mg DAILY PO ; Start 12/26/16 at 09:00; Stop 12/26/16 at 11: 08; Status DC Mycophenolate Mofetil (Cellcept) 500 mg BID@18 PO Last administered on 05:06; Start 12/26/16 at 18:00; Stop 12/27/16 at 11:02; Status DC Nifedipine (Procardia Xl) 60 mg DAILY PO Last administered on 12/31/16 09:25; Start 12/26/16 at 09:00; Stop 01/01/17 at 09:55; Status DC Pantoprazole Sodium (Protonix) 40 mg DAILY PO ; Start 12/26/16 at 09:00; Stop 12/26/16 at 11:08; Status DC Prednisone (Deltasone) 20 mg DAILY PO ; Start 12/26/16 at 09:00; Stop 12/26/16 at 09:00; Status DC Alprazolam (Xanax) 0.125 mg Q6H PRN PO ANXIETY Last administered on 12/27/16 16 :34; Start 12/26/16 at 07:45; Stop 12/28/16 at 14:45; Status DC Miscellaneous (Pill Splitter) 1 ea UNSCH PRN OTHER SEE LABEL COMMENTS Last administered on 12/30/16 17:40; Start 12/26/16 at 08:00; Stop 01/07/17 at 12:36; Status DC Prednisone (Deltasone) 40 mg DAILY PO ; Start 12/26/16 at 09:00; Stop 12/26/16 at 11:08; Status DC Prednisone (Deltasone) 60 mg DAILY PO Last administered on 12/28/16 09:23; Start 12/27/16 at 09:00; Stop 12/28/16 at 20:05; Status DC Prednisone (Deltasone) 20 mg ONCE ONCE PO Last administered on 12/26/16 12:30 ; Start 12/26/16 at 11:15; Stop 12/26/16 at 11:16; Status DC Bumetanide (Bumex Inj) 2 mg BID@18 IV PUSH Last administered on 12/28/16 09: 22; Start 12/26/16 at 18:00; Stop 12/28/16 at 11:20; Status DC Diphenhydramine HCl (Benadryl) 25 mg HS PRN PO insomnia Last administered on 23:41; Start 12/27/16 at 01:45; Stop 12/28/16 at 14:46; Status DC Mycophenolate Mofetil (Cellcept) 1,000 mg BID@,18 PO Last administered on 12/28 18:21; Start 12/27/16 at 18:00; Stop 12/28/16 at 20:05; Status DC Acetaminophen/ Hydrocodone Bitart ([place] 5-325 Mg) 1 tab Q6H PRN PO PAIN NOT RELIEVED BY TYLENOL Last administered on 12/28/16 11:37; Start 12/27/16 at 16:00 ; Stop 12/28/16 at 14:46; Status DC Albuterol Sulfate 2.5 mg 2.5 mg Q6HR NEB PRN INH SHORTNESS OF BREATH Last administered on 12/27/16 20:12; Start 12/27/16 at 16:00 Cefepime HCl/ Sodium Chloride (Maxipime Inj/NS Inj) 100 ml @ 200 mls/hr Q24H IV Last administered on 01/09/17 06:08; Start 12/28/16 at 05:00; Stop 01/09/17 at 08:00; Status DC Morphine Sulfate 2 mg 2 mg Q3H PRN IV PUSH breakthrough pain Last administered on 12/28/16 09:23; Start 12/28/16 at 05:30; Stop 12/28/16 at 14:46; Status DC Metronidazole 100 ml @ 100 mls/hr Q6H IV Last administered on 01/01/17 06:33; Start 12/28/16 at 06:00; Stop 01/01/17 at 08:11; Status DC Vancomycin HCl/ Sodium Chloride (Vancomycin Inj/ NS 500 ml Inj) 515 ml @ 257.5 mls/ hr ONCE ONCE IV Last administered on 12/28/16 08:40; Start 12/28/16 at 06: 45; Stop 12/28/16 at 08:44; Status DC Sevelamer Carbonate 800 mg 800 mg TIDAC PO Last administered on 01/01/17 08:16 ; Start 12/28/16 at 12:00; Stop 01/02/17 at 09:10; Status DC Bumetanide 100 ml @ 8 mls/hr CONTINUOUS IV Last administered on 12/28/16 15:11 ; Start 12/28/16 at 13:30; Stop 12/28/16 at 17:24; Status DC Heparin Sodium/ Dextrose (Heparin-D5W Inj) 250 ml @ 0 mls/hr TITRATE IV Last administered on 12/28/16 15:12; Start 12/28/16 at 14:45; Stop 12/28/16 at 21:51; Status DC Hydromorphone HCl (Dilaudid Pf Inj) 0.5 mg Q4H PRN IV PUSH pain 7-10 or not taking po Last administered on 01/04/17 03:48; Start 12/28/16 at 14:45; Status Hold Oxycodone HCl (Roxicodone) 5 mg Q4H PRN PO pain 3-6 Last administered on 19:57; Start 12/28/16 at 14:45 Pantoprazole Sodium (Protonix Inj) 40 mg Q24H IV PUSH Last administered on 15:00; Start 12/28/16 at 15:00; Stop 01/01/17 at 08:12; Status DC Bumetanide (Bumetanide) 2 mg BID@09,18 PO Last administered on 01/09/17 09:28 ; Start 12/28/16 at 18:00 Mycophenolate Mofetil (Cellcept) 500 mg BID@06,18 PO Last administered on 05:22; Start 12/29/16 at 06:00; Stop 01/01/17 at 09:15; Status DC Prednisone 40 mg 40 mg DAILY PO Last administered on 01/01/17 08:15; Start 12/29 at 09:00; Stop 01/01/17 at 09:52; Status DC Heparin Sodium/ Dextrose (Heparin-D5W Inj) 250 ml @ 0 mls/hr TITRATE IV Last administered on 12/30/16 01:58; Start 12/28/16 at 22:00; Stop 12/30/16 at 12:16; Status DC Alprazolam (Xanax) 0.5 mg NOW PO Last administered on 12/28/16 23:22; Start 12/28/16 at 23:15; Stop 12/29/16 at 00:45; Status DC Ondansetron HCl (Zofran Inj) 4 mg Q6H PRN IV PUSH NAUSEA Last administered on 12:45; Start 12/29/16 at 09:30 Alprazolam (Xanax) 0.125 mg Q12HR PRN PO ANXIETY Last administered on 12/30/16 01:39; Start 12/29/16 at 13:00; Stop 12/30/16 at 07:52; Status DC Alprazolam (Xanax) 0.125 mg Q6HR PRN PO ANXIETY Last administered on 01/05/17 04:33; Start 12/30/16 at 12:00; Stop 01/05/17 at 10:02; Status DC Miscellaneous (Pill Splitter) 1 ea UNSCH PRN OTHER SEE LABEL COMMENTS; Start at 08:00 Albumin Human (Albumin 25% Inj) 12.5 gm Q12H IV Last administered on 01/09/17 09:29; Start 12/30/16 at 20:00 Midazolam HCl (Versed Inj) 5 mg STK-MED ONCE .ROUTE Last administered on 10:57; Start 12/31/16 at 10:57; Stop 12/31/16 at 10:58; Status DC Fentanyl Citrate (fentaNYL INJ) 250 mcg STK-MED ONCE .ROUTE Last administered on 12/31/16 10:57; Start 12/31/16 at 10:57; Stop 12/31/16 at 10:58; Status DC Vancomycin HCl (Vancomycin Inj) 1,000 mg STK-MED ONCE .ROUTE Last administered on 12/31/16 10:58; Start 12/31/16 at 10:58; Stop 12/31/16 at 10:59; Status DC Heparin Sodium (Porcine) (*HEPARIN INJ Periprocedural ONLY) 10,000 units STK- MED ONCE .ROUTE Last administered on 12/31/16 11:40; Start 12/31/16 at 11:19; Stop 12/31/16 at 11:20; Status DC Lidocaine/ Epinephrine 20 ml 20 ml STK-MED ONCE .ROUTE Last administered on 12/31 11:25; Start 12/31/16 at 11:19; Stop 12/31/16 at 11:20; Status DC Sodium Chloride (NS 1000 ml Inj) 1,000 ml @ 0 mls/hr Q0M PRN IV For Prime & Rinse Back Last administered on 12/31/16 17:02; Start 12/31/16 at 11:44 Heparin Sodium (Porcine) 8000 units 8,000 units UNSCH PRN IVF WITH DIALYSIS Last administered on 01/07/17 11:26; Start 12/31/16 at 11:45 Sodium Chloride 1,000 ml @ 200 mls/hr Q5H PRN IV WITH DIALYSIS Last administered on 01/08/17 10:22; Start 12/31/16 at 11:44 Sodium Chloride (NS 1000 ml Inj) 1,000 ml @ 0 mls/hr Q0M PRN IV WITH DIALYSIS Last administered on 12/31/16 17:03; Start 12/31/16 at 11:44 Mannitol (Mannitol Inj) 12.5 gm UNSCH PRN IV WITH DIALYSIS; Start 12/31/16 at 11 :45 Albumin Human (Albumin 25% Inj) 25 gm UNSCH PRN IV WITH DIALYSIS; Start at 11:45 IV Flush (NS Flush) 5 ml UNSCH PRN IVF WITH DIALYSIS Last administered on 17:01; Start 12/31/16 at 11:45 Heparin Sodium (Porcine) (Heparin Inj) UNSCH PRN .XX WITH DIALYSIS Last administered on 01/08/17 10:22; Start 12/31/16 at 11:45 Gentamicin Sulfate (Gentamicin (Dialysis) Inj) 20 mg UNSCH PRN IV WITH DIALYSIS Last administered on 01/08/17 10:22; Start 12/31/16 at 11:45 Ondansetron HCl (Zofran Inj) 4 mg UNSCH PRN IV WITH DIALYSIS Last administered on 01/04/17 21:23; Start 12/31/16 at 11:45 Acetaminophen (Tylenol) 650 mg UNSCH PRN PO for headach, pain, temp > 101F; Start 12/31/16 at 11:45 Diphenhydramine HCl (Benadryl) 25 mg UNSCH PRN PO for hives/itching/anaphylaxis ; Start 12/31/16 at 11:45 Nitroglycerin (Nitrostat Sl) 0.4 mg UNSCH PRN SL CHEST PAIN; Start 12/31/16 at 11:45 Clonidine (Catapres) 0.1 mg UNSCH PRN PO for BP > 180/100 X 2 readings; Start 12/31/16 at 11:45 Gelatin (Gelfoam 12 Mm/7 Mm Top) 1 foam UNSCH PRN TOP SEE LABEL COMMENTS; Start 12/31/16 at 11:45 Epoetin [place] (Epogen Inj) 10,000 units UNSCH PRN IV WITH DIALYSIS Last administered on 01/08/17 10:23; Start 12/31/16 at 11:45 Pantoprazole Sodium (Protonix) 40 mg DAILY PO Last administered on 01/06/17 07 :37; Start 01/01/17 at 09:00; Stop 01/07/17 at 12:34; Status DC Prednisone (Deltasone) 30 mg DAILY PO Last administered on 01/06/17 07:37; Start 01/02/17 at 09:00; Stop 01/07/17 at 09:45; Status DC Heparin Sodium (Porcine) (Heparin Inj) 5,000 units Q12HR SQ ; Start 01/02/17 at 21:00; Status Hold Sevelamer Carbonate (Renvela) 1,600 mg TIDAC PO Last administered on 01/09/17 09:28; Start 01/02/17 at 12:00 Oxycodone HCl (Roxicodone) 10 mg Q4H PRN PO PAIN 7-10 Last administered on 01/09 06:11; Start 01/04/17 at 09:00 Alprazolam (Xanax) 0.25 mg Q6H PRN PO ANXIETY Last administered on 01/09/17 06 :11; Start 01/05/17 at 10:15 Thrombin (Thrombin Top Soln) 10,000 units STK-MED ONCE .ROUTE Last administered on 01/07/17 11:02; Start 01/07/17 at 08:37; Stop 01/07/17 at 08:38 ; Status DC Gelatin (Gelfoam 100 Top) 1 foam STK-MED ONCE .ROUTE Last administered on 11:02; Start 01/07/17 at 08:37; Stop 01/07/17 at 08:38; Status DC Heparin Sodium (Porcine) (Heparin Inj) 10,000 units STK-MED ONCE .ROUTE Last administered on 01/07/17 11:02; Start 01/07/17 at 08:37; Stop 01/07/17 at 08:38 ; Status DC Protamine Sulfate (Protamine Sulfate Inj) 50 mg STK-MED ONCE .ROUTE ; Start at 08:37; Stop 01/07/17 at 08:38; Status DC Ketamine HCl (Ketalar Inj) 500 mg STK-MED ONCE .ROUTE ; Start 01/07/17 at 08:43 ; Stop 01/07/17 at 08:44; Status DC Vancomycin HCl 1000 mg 1,000 mg STK-MED ONCE .ROUTE Last administered on 11:02; Start 01/07/17 at 09:03; Stop 01/07/17 at 09:04; Status DC Cefazolin Sodium/ Dextrose 50 ml @ As Directed STK-MED ONCE .ROUTE ; Start 01/07 at 09:03; Stop 01/07/17 at 09:04; Status DC Sodium Chloride (NS 250 ml Inj) 250 ml @ As Directed STK-MED ONCE .ROUTE Last administered on 01/07/17 11:02; Start 01/07/17 at 09:03; Stop 01/07/17 at 09:04 ; Status DC Prednisone (Deltasone) 20 mg DAILY PO Last administered on 01/09/17 09:28; Start 01/08/17 at 09:00 Midazolam HCl (Versed Inj) 2 mg STK-MED ONCE .ROUTE Last administered on 09:51; Start 01/07/17 at 09:46; Stop 01/07/17 at 09:47; Status DC Famotidine (Pepcid Inj) 20 mg STK-MED ONCE .ROUTE Last administered on 09:49; Start 01/07/17 at 09:47; Stop 01/07/17 at 09:48; Status DC Bupivacaine HCl/ Epinephrine Bitart 50 ml 50 ml STK-MED ONCE INFIL Last administered on 01/07/17 11:02; Start 01/07/17 at 11:02; Stop 01/07/17 at 11:41 ; Status DC Sodium Chloride (NS 1000 ml Inj) 1,000 ml @ 100 mls/hr Q10H IV ; Start at 13:00; Stop 01/08/17 at 09:26; Status DC Aspirin (Ecotrin Ec) 325 mg DAILY PO Last administered on 01/09/17 09:28; Start 01/08/17 at 09:00 Pantoprazole Sodium (Protonix) 40 mg HS PO Last administered on 01/08/17 20:46 ; Start 01/07/17 at 21:00 Zolpidem Tartrate (Ambien) 5 mg HS PRN PO INSOMNIA/MAY REPEAT X1 DOSE Last administered on 01/09/17 00:46; Start 01/07/17 at 12:30 Docusate Calcium (Surfak) 240 mg HS PO Last administered on 01/08/17 20:46; Start 01/07/17 at 21:00 Morphine Sulfate (Morphine Inj) 4 mg Q4H PRN IV PUSH BREAKTHROUGH PAIN Last administered on 01/09/17 06:10; Start 01/07/17 at 12:30 Insulin Human Regular (NovoLIN R SUPPLEMENTAL SCALE) 1 Q6HR SQ ; Start 01/07/17 at 18:00 Dextrose (D50w (Vial) Inj) 25 ml UNSCH PRN IV PUSH HYPOGLYCEMIA-SEE COMMENTS; Start 01/07/17 at 12:30 Glucagon (Glucagon Inj) 1 mg UNSCH PRN OTHER HYPOGLYCEMIA-SEE COMMENTS; Start 01/07/17 at 12:30 Midazolam HCl (Versed Inj) 4 mg STK-MED ONCE .ROUTE ; Start 01/07/17 at 13:10; Stop 01/07/17 at 13:11; Status DC Fentanyl Citrate (fentaNYL INJ) 100 mcg STK-MED ONCE .ROUTE ; Start 01/07/17 at 13:10; Stop 01/07/17 at 13:11; Status DC Miscellaneous Information ALL NURSING DEPARTME... UNSCH PRN XX SEE LABEL COMMENTS; Start 01/07/17 at 13:00; Stop 01/08/17 at 12:59; Status DC Morphine Sulfate (*morphine INJ PERIprocedure ONLY) 8 mg STK-MED ONCE .ROUTE ; Start 01/07/17 at 14:09; Stop 01/07/17 at 14:10; Status DC Ondansetron HCl (*ZOFRAN INJ PERIprocedural ONLY) 4 mg STK-MED ONCE .ROUTE ; Start 01/07/17 at 14:40; Stop 01/07/17 at 14:41; Status DC Propofol 400 mg 400 mg STK-MED ONCE IV ; Start 01/07/17 at 12:00; Stop 01/08/17 at 13:50; Status DC Sodium Chloride 250 ml @ As Directed STK-MED ONCE IV ; Start 01/07/17 at 12:00 ; Stop 01/08/17 at 13:50; Status DC Sodium Chloride (NS 500 ml Inj) 500 ml @ As Directed STK-MED ONCE IV ; Start at 12:00; Stop 01/08/17 at 13:50; Status DC Heparin Sodium (Porcine) (Heparin Inj) 3,000 units STK-MED ONCE IV ; Start 01/07 at 12:00; Stop 01/08/17 at 13:50; Status DC A/P Assessment and Plan A/P IgA nephropathy Acute on chronic renal failure -on prednisone taper -Cellecept was discontinued. -started on HD on TTS schedule- s/p perma-cath and AV graft placement -monitor renal function Nephrology following:Dr. Mayer Alcoholic cirrhosis Acute abdominal pain Possible SBP Diagnostic paracentesis done;fluid culture negative. 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 s/p PRBC transfusion. on epogen per nephrology will monitor H/H periodically anxiety; xanax as needed. Prophylaxis: GI Prophylaxis Protonix DVT Prophylaxis -- SCDs -no chemical prophylaxis due to thrombocytopenia. Discharge Planning awaiting approval for out-patient HD. Sachi Medeiros MD Jan 09, 2017 09:39
[2017-01-09 10:35] LABS: AUTOMATED NEUTROPHIL # 4.4 TH/MM3 (1.8-7.7); BASOPHIL % 0.6 % (0.0-2.0); EOSINOPHIL # 0.1 TH/MM3 (0-0.4); EOSINOPHIL % 1.4 % (0.0-4.0); HEMATOCRIT 26.1 % (39.0-51.0); LYMPH % 13.2 % (9.0-44.0); LYMPHOCYTE # 0.9 TH/MM3 (1.0-4.8); MEAN CELL VOLUME 94.9 FL (80.0-100.0); MEAN CORPUSCULAR HEMOGLOBIN 32.9 PG (27.0-34.0); MEAN CORPUSCULAR HGB CONC 34.7 % (32.0-36.0); MONO % 19.6 % (0.0-8.0); NEUT % 65.2 % (16.0-70.0); PLATELET COUNT 46 TH/MM3 (150-450); RED BLOOD COUNT 2.76 MIL/MM3 (4.50-5.90); RED CELL DISTRIBUTION WIDTH 15.2 % (11.6-17.2); WHITE BLOOD COUNT 6.8 TH/MM3 (4.0-11.0)
[2017-01-09 10:39] LABS: HEMO FLAGS AUTO DIFF
--- NOTE | 2017-01-09 10:49 | HHI.NPPN ---
Subjective Complaints: Obesity General Problems: Edema Renal Failure: Chronic, Acute Interval History He is sleeping. Fluid overload persists. Had dialysis yesterday. (Helen Gaspar) Review of Systems General Constitutional: Fatigue (Helen Gaspar) Cardiovascular Cardiac: Edema (Helen Gaspar) Musculoskeletal MS: Pain/Stiffness MS Remarks left arm (Helen Gaspar) Objective Data Data 01/08/17 01/09/17 19:00 07:00 Intake Total 960 ml 340 ml Output Total 5500 ml 350 ml Balance -4540 ml -10 ml Intake Oral 960 ml 240 ml IV Total 100 ml Output Urine Total 500 ml 350 ml Hemodialysis 5000 ml Vital Signs Date Time Temp Pulse Resp B/P Pulse Ox O2 Delivery O2 Flow Rate FiO2 01/09/17 09:48 16 01/09/17 09:34 18 01/09/17 06:00 84 01/09/17 05:00 76 01/09/17 04:00 76 01/09/17 03:00 84 01/09/17 03:00 98.1 78 16 145/86 96 01/09/17 02:00 82 01/09/17 01:00 86 01/09/17 00:00 84 01/08/17 23:00 16 137/77 97 01/08/17 23:00 91 01/08/17 22:00 90 01/08/17 21:00 94 01/08/17 20:00 100 01/08/17 19:00 99.6 95 16 124/74 96 01/08/17 19:00 101 01/08/17 18:00 100 01/08/17 17:00 101 01/08/17 16:34 99.1 103 20 126/82 94 01/08/17 16:00 95 01/08/17 15:00 127 01/08/17 14:00 100 01/08/17 13:00 94 01/08/17 12:30 98.3 95 20 147/82 98 01/08/17 12:00 88 01/08/17 11:00 95 (Helen Gaspar) -: 01/09/17 1022 01/08/17 0445 Tubes & Lines: Perma-Cath (Helen Gaspar) Physical Exam General Appearance: Well Developed, Well Nourished, No Acute Distress, Comfortable, Obese (Helen Gaspar) Throat Throat Exam: Oral Mucosa [place] & Moist (Helen Gaspar) Pulmonary Resp Exam: Breath Sounds Equal, No Distress, Decreased Bases (Helen Gaspar) Cardiology CV Exam: Regular, Normal Sinus Rhythm (Helen Gaspar) Gastrointestinal/Abdomen GI Exam: Soft, Non-Tender (Helen Gaspar) Genitourinary Remarks dark hematuria (Helen Gaspar) Musculoskeletal MS Exam: Joints Intact, Normal Tone (Helen Gaspar) Integumentary Skin Exam: Clear, Warm, Dry, Intact Skin Remarks AVF left AC (Helen Gaspar) Extremeties Extremities Exam: Pedal Pulses Palpable, Moderate Edema, Pitting Edema, Dependent Edema (Helen Gaspar) Neurologic Neuro Exam: Alert, Awake, Oriented, Speech Clear, Moving All Extremities ( Helen Gaspar) Psychiatric Psych Exam: Appropriate Responses (Helen Gaspar) Assessment/Plan Discussed Condition With: Patient Assessment Summary: Fluid/Volume Overload, Hypertension, End Stage Renal Disease Problem List: (1) Acute renal failure Plan: in a pt with ESRD due to Iga nephropathy with RPGN T-Th-Sat dialysis, had 5L UF yesterday he still makes some urine, but is dialysis dependent continue Bumex po BID he has very dark urine with hematuria, send UA for analysis cellcept stopped, on prednisone taper (20 mg/day) permcath in place, s/p AVF placement 01/07 goal is to go to [facility] when approved medicaid should be ready this week (2) RPGN (rapidly progressive glomerulonephritis) Plan: see above (3) IgA nephropathy determined by renal biopsy Plan: on prednisone monitor renal function management as above he has progressed to ESRD (4) Thrombocytopenia Plan: Given 2 units FFP with surgery, Platelet count improved, continue to monitor. it was thought cirrhosis may have been the etiology no active bleeding (5) Leukocytosis Plan: GI signed off Antibiotics to been stopped after today monitor clinically , carefully monitor drug levels when appropriate (Helen Gaspar) Plan patient was seen and examined. Massive fluid overload persists. Continue Bumex and fluid removal at dialysis. (Fredo Mayer MD) Problem Qualifiers (1) Acute renal failure: Qualified Code: N17.9 - Acute renal failure, unspecified acute renal failure type Helen Gaspar Jan 09, 2017 10:49 Fredo Mayer MD Jan 09, 2017 19:51
[2017-01-09 11:42] LABS: BACTERIA, URINE OCC /hpf; BLOOD, URINE LARGE (NEG); COMMENT (UR) CULTURE INDICATED; CULTURE IF INDICATED CULTURE INDICATED; GLUCOSE,URINE NEG (NEG); KETONE, URINE TRACE mg/dL (NEG); MUCUS URINE FEW /lpf (OCC); NITRITE,URINE NEG (NEG)
[2017-01-09 11:44] LABS: URINE COLOR RED (YELLW/STRAW)
[2017-01-09 11:48] LABS: BICARBONATE 29.1 MEQ/L (21.0-32.0); POTASSIUM 3.7 MEQ/L (3.5-5.1)
[2017-01-09 12:09] LABS: PLATELET ESTIMATE SMEAR LOW (NORMAL); PLATELET MORPHOLOGY NORMAL (NORMAL); SCAN/DIFF AUTO DIFF CONFIRMED
--- NOTE | 2017-01-09 15:40 | MP ---
cc: ESVIN REED DATE OF SURGERY: 01/07/2017 PREOPERATIVE DIAGNOSIS End-stage renal disease. POSTOPERATIVE DIAGNOSIS End-stage renal disease. PROCEDURE Left upper extremity brachiocephalic AV fistula. SURGEON Esvin Reed, OFFICE BOOKKEEPER Keanu Gan. IV FLUIDS 400 ccs of crystalloid, two packs of platelets. ESTIMATED BLOOD LOSS Minimal, less than 25 ccs. URINE OUTPUT Not calculated. COMPLICATIONS None. DISPOSITION To PACU. ANESTHESIA MAC and local. I used 20 ccs of 0.25% Marcaine with epinephrine and the patient had MAC anesthesia. PROCEDURE The patient's left upper extremity was prepped and draped in sterile fashion after being under MAC anesthesia. I used ultrasound to identify the cephalic vein and the brachial artery. I used duplex ultrasound. I used a scalpel and electrocautery and I dissected down just above the antecubital fossa with electrocautery to help out with dissection. I did this after injecting 10 ccs of 0.25% Marcaine with epinephrine. As I dissected down I identified the cephalic vein and mobilized it with Metzenbaum scissors. I then mobilized the brachial artery from the paired brachial veins. I tied off side branches with 3-0 silk ties as needed. I divided the cephalic vein below the antecubital fossa with a 2-0 Vicryl suture ligature and a medium clip. Once I mobilized the cephalic vein I insufflated it with heparinized saline. I did give the patient approximately 3000 units of heparin before clamping the proximal distal brachial artery above the antecubital fossa. I performed arteriotomy with 11-blade. I used a Vazquez scissors in order to longitudinally extend my arteriotomy. I performed end-to-side anastomosis with the cephalic vein with a 5-0 Prolene on BV1. At the end of the procedure I did need one 5-0 Prolene as a traction suture. There was a good thrill in the outflow of cephalic vein and there was triphasic signals in the radial and ulnar distribution distally at the level of the wrists. I used thrombin Gelfoam and Surgicel as needed to assist with hemostasis as the platelet count was less than 50,000 before starting the case, secondary to patient morphology. I closed in layers with 2-0 and 3-0 Vicryl absorbable suture and I used a 4-0 Monocryl with Dermabond over the skin. The patient tolerated the procedure well. DO DONG Mckeon /11:30 AM /2:19 PM
[2017-01-09] MEDS: PANTOPRAZOLE SOD 40 MG DELAYED RELEASE TAB PO SCH (19:50)
[2017-01-09] MEDS: DOCUSATE CALCIUM 240 MG CAP PO SCH (19:51)
--- NOTE | 2017-01-09 20:14 | EKG ---
Date Performed: 01/08/2017 Time Performed: 15:57:04 PTAGE: 46 years EKG: Sinus tachycardia. Poor R wave progression - probable normal variant Low QRS voltages in pr ecordial leads Borderline ECG PREVIOUS TRACING : 01/06/2017 13.47 Compared to prior tracing no significant change DOCTOR: David Cheng Interpretating Date/Time 01/09/2017 20:13:31
[2017-01-10] VITALS (22 sets, daily range): BP systolic 129–152; BP diastolic 79–88; PULSE 76–107; RESP 16–18; TEMP 98–98.9; O2SAT 95–100
[2017-01-10] MEDS: MORPHINE SULFATE 4 MG/ML INJ IV PUSH PRN ×4 (00:50→22:59)
[2017-01-10] MEDS: ZOLPIDEM TARTRATE 5 MG TAB PO PRN ×2 (00:50→23:37)
[2017-01-10] MEDS: ALPRAZolam 0.25 MG TAB PO PRN ×4 (02:16→21:34)
[2017-01-10 05:36] LABS: BICARBONATE 31.6 MEQ/L (21.0-32.0); POTASSIUM 3.7 MEQ/L (3.5-5.1)
[2017-01-10] MEDS: INSULIN NovoLIN REGULAR SUPPLEMENTAL SCALE SQ SCH ×4 (06:00→17:53)
[2017-01-10] MEDS: SEVELAMER CARBONATE 800 MG TAB PO SCH ×4 (08:00→17:51)
--- NOTE | 2017-01-10 08:08 | HHI.NPPN ---
Subjective Complaints: Obesity General Problems: Edema Renal Failure: Chronic, Acute Interval History non oliguric, urine is dark. continues to have significant lower extremity edema. Review of Systems General Constitutional: Fatigue Cardiovascular Cardiac: Edema Musculoskeletal MS: Pain/Stiffness MS Remarks left arm Objective Data Data 01/09/17 01/10/17 19:00 07:00 Intake Total 600 ml 540 ml Output Total 1000 ml 850 ml Balance -400 ml -310 ml Intake Oral 600 ml 440 ml IV Total 100 ml Output Urine Total 1000 ml 850 ml # Bowel Movements 0 0 Vital Signs Date Time Temp Pulse Resp B/P Pulse Ox O2 Delivery O2 Flow Rate FiO2 01/10/17 06:21 88 01/10/17 05:30 18 01/10/17 03:16 18 01/10/17 03:00 98.1 76 18 144/88 96 01/10/17 03:00 76 01/09/17 23:00 89 01/09/17 23:00 98.2 89 18 137/88 99 01/09/17 22:50 18 01/09/17 19:30 91 01/09/17 19:00 98.3 87 18 143/80 96 01/09/17 18:11 91 01/09/17 17:41 85 01/09/17 16:24 90 01/09/17 15:15 84 01/09/17 15:15 98.5 84 18 125/74 94 01/09/17 14:13 99 01/09/17 13:12 98 01/09/17 12:20 115 01/09/17 11:23 94 01/09/17 11:23 98.2 93 18 126/75 96 01/09/17 10:54 97 01/09/17 09:02 92 -: 01/09/17 1022 01/10/17 0455 Microbiology 01/09/17 Urine Culture, Received Pending Tubes & Lines: Perma-Cath Physical Exam General Appearance: Well Developed, Well Nourished, No Acute Distress, Comfortable, Obese Throat Throat Exam: Oral Mucosa [place] & Moist Pulmonary Resp Exam: Breath Sounds Equal, No Distress, Decreased Bases Cardiology CV Exam: Regular, Normal Sinus Rhythm Gastrointestinal/Abdomen GI Exam: Soft, Non-Tender Musculoskeletal MS Exam: Joints Intact, Normal Tone Integumentary Skin Exam: Clear, Warm, Dry, Intact Extremeties Extremities Exam: Pedal Pulses Palpable, Moderate Edema, Pitting Edema, Dependent Edema Neurologic Neuro Exam: Alert, Awake, Oriented, Speech Clear, Moving All Extremities Psychiatric Psych Exam: Appropriate Responses Assessment/Plan Discussed Condition With: Patient Assessment Summary: Fluid/Volume Overload, Hypertension, End Stage Renal Disease Problem List: (1) Acute renal failure Plan: in a pt with ESRD due to Iga nephropathy with RPGN T-Th-Sat dialysis, due to for dialysis today. Continue Bumex. continue Bumex po BID UA revealed hematuria. cellcept stopped, on prednisone taper (20 mg/day) permcath in place, s/p AVF placement 01/07 goal is to go to [facility] when approved (2) RPGN (rapidly progressive glomerulonephritis) Plan: see above (3) IgA nephropathy determined by renal biopsy Plan: on prednisone monitor renal function management as above he has progressed to ESRD (4) Thrombocytopenia Plan: likely due to cirrhosis of liver, hypersplenism. (5) Leukocytosis Plan: Resolved. Off antibiotics. Problem Qualifiers (1) Acute renal failure: Qualified Code: N17.9 - Acute renal failure, unspecified acute renal failure type Fredo Mayer MD Jan 10, 2017 08:07
[2017-01-10] MEDS: ALBUMIN HUMAN 25% 12.5 GM/50 ML BAGP IV SCH ×2 (08:39→21:34)
[2017-01-10] MEDS: BUMETANIDE 1 MG TAB PO SCH ×2 (08:45→17:52)
[2017-01-10] MEDS: predniSONE 20 MG TAB PO SCH (08:45)
[2017-01-10] MEDS: SODIUM CHLORIDE 0.9% FLUSH 5 ML FLUSH FLUSH SCH ×2 (08:47→21:36)
--- NOTE | 2017-01-10 09:03 | PD.VS.PN ---
Subjective Procedure(s): right upper extremity BC AVF. Subjective/Hospital Course Discussed possibly creating left upper extremity avf on sunday 01/07 if OR space available. Patient without complaints. Understands risks of steal and swelling with creation of avf. Objective Cardiac: right arm incision intact. palpable thrill and distal pulse (radial artery). ecchymosis around incision. Laboratory Laboratory Tests Test 01/09/17 01/09/17 01/10/17 10:22 11:13 04:55 White Blood Count 6.8 Red Blood Count 2.76 Hemoglobin 9.1 Hematocrit 26.1 Mean Corpuscular Volume 94.9 Mean Corpuscular Hemoglobin 32.9 Mean Corpuscular Hemoglobin 34.7 Concent Red Cell Distribution Width 15.2 Platelet Count 46 Mean Platelet Volume 8.6 Neutrophils (%) (Auto) 65.2 Lymphocytes (%) (Auto) 13.2 Monocytes (%) (Auto) 19.6 Eosinophils (%) (Auto) 1.4 Basophils (%) (Auto) 0.6 Neutrophils # (Auto) 4.4 Lymphocytes # (Auto) 0.9 Monocytes # (Auto) 1.3 Eosinophils # (Auto) 0.1 Basophils # (Auto) 0.0 CBC Comment AUTO DIFF Differential Comment AUTO DIFF CONFIRMED Platelet Estimate LOW Platelet Morphology Comment NORMAL Sodium Level 139 140 Potassium Level 3.7 3.7 Chloride Level 101 99 Carbon Dioxide Level 29.1 31.6 Anion Gap 9 9 Blood Urea Nitrogen 54 54 Creatinine 3.05 3.07 Estimat Glomerular Filtration 22 22 Rate Random Glucose 116 78 Calcium Level 7.3 7.4 Phosphorus Level 4.4 5.2 Albumin 2.4 2.7 Urine Color RED Urine Turbidity HAZY Urine pH 8.0 Urine Specific [place] 1.018 Urine Protein GREATER THAN 600 Urine Glucose (UA) NEG Urine Ketones TRACE Urine Occult Blood LARGE Urine Nitrite NEG Urine Bilirubin NEG Urine Urobilinogen LESS THAN 2.0 Urine Leukocyte Esterase SMALL Urine RBC Urine WBC 19 Urine Bacteria OCC Urine Mucus FEW Microscopic Urinalysis Comment CULTURE INDICATED Date/Time Procedure Status Source Growth 01/09/17 11:13 Urine Culture Received Urine Clean Catch Pending Assessment and Plan Assessment: (1) Renal failure Status: Acute Plan Patient is 46 year old male with ESRD requiring hemodialysis. Status post right upper extremity BC avf. feels patent and incision intact. Follow up in one week in office once discharged. sEvin Reed DO, FACS [employer] [facility] [phone] Esvin Reed DO Jan 10, 2017 09:02
--- NOTE | 2017-01-10 10:47 | HHI.PR ---
Subjective Remarks Follow-up IgA nephropathy/end-stage renal disease on hemodialysis 01/10/17-patient seen and examined in dialysis center, no acute event overnight. Discussed with patient regarding his dependence on narcotics. Afebrile Objective Vitals Vital Signs Date Time Temp Pulse Resp B/P Pulse Ox O2 Delivery O2 Flow Rate FiO2 01/10/17 10:19 86 01/10/17 09:02 85 01/10/17 08:00 82 01/10/17 07:50 98.0 82 18 152/85 96 01/10/17 07:00 85 01/10/17 06:21 88 01/10/17 05:30 18 01/10/17 03:16 18 01/10/17 03:00 98.1 76 18 144/88 96 01/10/17 03:00 76 01/09/17 23:00 89 01/09/17 23:00 98.2 89 18 137/88 99 01/09/17 22:50 18 01/09/17 19:30 91 01/09/17 19:00 98.3 87 18 143/80 96 01/09/17 18:11 91 01/09/17 17:41 85 01/09/17 16:24 90 01/09/17 15:15 84 01/09/17 15:15 98.5 84 18 125/74 94 01/09/17 14:13 99 01/09/17 13:12 98 01/09/17 12:20 115 01/09/17 11:23 94 01/09/17 11:23 98.2 93 18 126/75 96 01/09/17 10:54 97 I/O 01/09/17 01/09/17 01/09/17 01/10/17 01/10/17 01/10/17 07:00 15:00 23:00 07:00 15:00 23:00 Intake Total 340 ml 600 ml 540 ml Output Total 350 ml 1000 ml 850 ml Balance -10 ml -400 ml -310 ml Intake Oral 240 ml 600 ml 440 ml IV Total 100 ml 100 ml Output Urine Total 350 ml 1000 ml 850 ml # Bowel Movements 0 0 Result Diagram: 01/09/17 1022 01/10/17 0455 Objective Remarks GENERAL: NAD and hooker on to dialysis machine SKIN: Warm and dry. HEAD: Normocephalic. EYES: No scleral icterus. No injection or drainage. NECK: Supple, trachea midline. No JVD or lymphadenopathy. CARDIOVASCULAR: Regular rate and rhythm without murmurs, gallops, or rubs. RESPIRATORY: Breath sounds equal bilaterally. No accessory muscle use. GASTROINTESTINAL: Abdomen soft, non-tender, nondistended. MUSCULOSKELETAL: No cyanosis, or edema. BACK: Nontender without obvious deformity. No CVA tenderness. Procedures paracentesis permacath placement AV graft placement A/P Problem List: (1) Acute renal failure ICD Code: N17.9 Status: Acute Assessment and Plan 46-year-old male with IgA nephropathy Acute on chronic renal failure -on prednisone taper -Cellecept was discontinued. -Currently on HD on TTS schedule- s/p perma-cath and AV graft placement -monitor renal function Nephrology following:Dr. Mayer Alcoholic cirrhosis Acute abdominal pain Possible SBP Diagnostic paracentesis done;fluid culture negative. -finished the course of IV antibiotic per GI -evaluated by GI Thrombocytopeniasecondary to cirrhosis Possible portal vein thrombosis Leukocytosis Sepsis-resolved Possible spontaneous bacterial peritonitis-resolved -no anticoagulation per GI -surgery signed off- f/u as outpatient -monitor CBC anemia of chronic disease stool negative for blood. s/p PRBC transfusion. on epogen per nephrology monitor H/H periodically anxiety; xanax as needed. Prophylaxis: GI Prophylaxis Protonix DVT Prophylaxis -- SCDs -no chemical prophylaxis due to thrombocytopenia. Problem Qualifiers (1) Acute renal failure: Qualified Code: N17.9 - Acute renal failure, unspecified acute renal failure type Surendra Cooper MD Jan 10, 2017 10:47
[2017-01-10] MEDS: EPOETIN ALFA 10,000 UNITS/ML VIAL IV PRN (10:54)
[2017-01-10] MEDS: SODIUM CHLOR 0.9% 1000 ML INJ 1,000 ML IV PRN (10:54)
[2017-01-10] MEDS: HEPARIN SODIUM - IV 10,000 UNITS/10 ML VIAL PRN (10:55)
[2017-01-10] MEDS: GENTAMICIN SULFATE (DIALYSIS USE ONLY) 20 MG/2 ML VIAL IV PRN (10:55)
[2017-01-10] MEDS: PANTOPRAZOLE SOD 40 MG DELAYED RELEASE TAB PO SCH (21:34)
[2017-01-10] MEDS: DOCUSATE CALCIUM 240 MG CAP PO SCH (21:34)
[2017-01-11] VITALS (27 sets, daily range): BP systolic 135–151; BP diastolic 84–87; PULSE 69–94; RESP 16–20; TEMP 97.5–98.9; O2SAT 94–100
[2017-01-11] MEDS: ALPRAZolam 0.25 MG TAB PO PRN ×4 (04:56→22:18)
[2017-01-11] MEDS: MORPHINE SULFATE 4 MG/ML INJ IV PUSH PRN (04:59)
[2017-01-11] MEDS: INSULIN NovoLIN REGULAR SUPPLEMENTAL SCALE SQ SCH ×4 (06:00→17:51)
[2017-01-11] MEDS: predniSONE 20 MG TAB PO SCH (08:15)
[2017-01-11] MEDS: SEVELAMER CARBONATE 800 MG TAB PO SCH ×3 (08:15→17:50)
[2017-01-11] MEDS: ALBUMIN HUMAN 25% 12.5 GM/50 ML BAGP IV SCH ×2 (08:15→22:17)
[2017-01-11] MEDS: SODIUM CHLORIDE 0.9% FLUSH 5 ML FLUSH FLUSH SCH ×2 (08:16→22:18)
[2017-01-11] MEDS: BUMETANIDE 1 MG TAB PO SCH ×2 (08:16→17:50)
--- NOTE | 2017-01-11 10:15 | HHI.NPPN ---
Subjective Complaints: Obesity General Problems: Edema Renal Failure: Chronic, Acute Interval History Resting quietly. Had 5L UF yesterday. Edema persists. States pain control is better. (Helen Gaspar) Review of Systems General Constitutional: Fatigue (Helen Gaspar) Cardiovascular Cardiac: Edema (Helen Gaspar) Musculoskeletal MS: Pain/Stiffness MS Remarks left arm (Helen Gaspar) Objective Data Data 01/10/17 01/11/17 19:00 07:00 Intake Total 600 ml Output Total 5850 ml Balance -5250 ml Intake Oral 600 ml Output Urine Total 850 ml Hemodialysis 5000 ml # Bowel Movements 0 Vital Signs Date Time Temp Pulse Resp B/P Pulse Ox O2 Delivery O2 Flow Rate FiO2 01/11/17 09:00 80 01/11/17 08:02 74 20 137/84 94 01/11/17 08:00 74 01/11/17 07:00 77 01/11/17 06:00 76 01/11/17 05:00 82 01/11/17 04:31 98.6 86 18 151/87 100 01/11/17 04:00 80 01/11/17 03:00 86 01/11/17 02:00 80 01/11/17 01:00 86 01/11/17 00:00 84 01/10/17 23:00 95 01/10/17 23:00 98.1 92 18 137/87 95 01/10/17 22:00 94 01/10/17 21:00 98 01/10/17 20:12 98.9 107 16 141/88 96 01/10/17 20:00 100 01/10/17 19:09 18 01/10/17 19:00 87 01/10/17 18:01 87 01/10/17 17:09 84 01/10/17 16:00 83 01/10/17 15:45 98.1 84 18 129/79 100 01/10/17 15:00 85 01/10/17 14:43 18 01/10/17 14:42 107 01/10/17 13:50 96 01/10/17 12:52 84 01/10/17 11:57 90 01/10/17 10:19 86 (Helen Gaspar) -: 01/09/17 1022 01/10/17 0455 Tubes & Lines: Perma-Cath (Helen Gaspar) Physical Exam General Appearance: Well Developed, Well Nourished, No Acute Distress, Comfortable, Obese (Helen Gaspar) Throat Throat Exam: Oral Mucosa [place] & Moist (Helen Gaspar) Pulmonary Resp Exam: Breath Sounds Equal, No Distress, Decreased Bases (Helen Gaspar) Cardiology CV Exam: Regular, Normal Sinus Rhythm (Helen Gaspar) Gastrointestinal/Abdomen GI Exam: Soft, Non-Tender (Helen Gaspar) Genitourinary Remarks dark hematuria (Helen Gaspar) Musculoskeletal MS Exam: Joints Intact, Normal Tone (Helen Gaspar) Integumentary Skin Exam: Clear, Warm, Dry, Intact Skin Remarks AVF left AC (Helen Gaspar) Extremeties Extremities Exam: Pedal Pulses Palpable, Moderate Edema, Pitting Edema, Dependent Edema (Helen Gaspar) Neurologic Neuro Exam: Alert, Awake, Oriented, Speech Clear, Moving All Extremities ( Helen Gaspar) Psychiatric Psych Exam: Appropriate Responses (Helen Gaspar) Assessment/Plan Discussed Condition With: Patient Assessment Summary: Fluid/Volume Overload, Hypertension, End Stage Renal Disease Problem List: (1) Acute renal failure Plan: in a pt with 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 on prednisone taper (20 mg/day) permcath in place, s/p AVF placement 01/07, vascular following the pt has asked for pain medications to be reduced to Oxycodone 5 mg prn (d/ c oxycodone 10 mg and IV morphine order) on renvela for metabolic bone disorder goal is to go to [facility] when approved (2) RPGN (rapidly progressive glomerulonephritis) Plan: see above (3) IgA nephropathy determined by renal biopsy Plan: on prednisone monitor renal function management as above he has progressed to ESRD (4) Thrombocytopenia Plan: likely due to cirrhosis of liver, hypersplenism. (5) Leukocytosis Plan: Resolved. Off antibiotics. (Helen Gaspar) Plan patient was seen and examined. Continue dialysis and fluid removal. Monitor urine output and renal function. Stop Morphine. (Fredo Mayer MD) Problem Qualifiers (1) Acute renal failure: Qualified Code: N17.9 - Acute renal failure, unspecified acute renal failure type Helen Gaspar Jan 11, 2017 10:15 Fredo Mayer MD Jan 11, 2017 17:27
--- NOTE | 2017-01-11 10:55 | HHI.PR ---
Subjective Remarks Follow-up IgA nephropathy/end-stage renal disease on hemodialysis 01/10/17-patient seen and examined in dialysis center, no acute event overnight. Discussed with patient regarding his dependence on narcotics. Afebrile 01/11/17-patient seen and examined, resting in no acute event overnight. Had hemodialysis yesterday Objective Vitals Vital Signs Date Time Temp Pulse Resp B/P Pulse Ox O2 Delivery O2 Flow Rate FiO2 01/11/17 10:00 87 01/11/17 09:00 80 01/11/17 08:02 74 20 137/84 94 01/11/17 08:00 74 01/11/17 07:00 77 01/11/17 06:00 76 01/11/17 05:00 82 01/11/17 04:31 98.6 86 18 151/87 100 01/11/17 04:00 80 01/11/17 03:00 86 01/11/17 02:00 80 01/11/17 01:00 86 01/11/17 00:00 84 01/10/17 23:00 95 01/10/17 23:00 98.1 92 18 137/87 95 01/10/17 22:00 94 01/10/17 21:00 98 01/10/17 20:12 98.9 107 16 141/88 96 01/10/17 20:00 100 01/10/17 19:09 18 01/10/17 19:00 87 01/10/17 18:01 87 01/10/17 17:09 84 01/10/17 16:00 83 01/10/17 15:45 98.1 84 18 129/79 100 01/10/17 15:00 85 01/10/17 14:43 18 01/10/17 14:42 107 01/10/17 13:50 96 01/10/17 12:52 84 01/10/17 11:57 90 I/O 01/10/17 01/10/17 01/10/17 01/11/17 01/11/17 01/11/17 07:00 15:00 23:00 07:00 15:00 23:00 Intake Total 540 ml 600 ml 240 ml Output Total 850 ml 5000 ml 850 ml 600 ml Balance -310 ml -5000 ml -250 ml -360 ml Intake Oral 440 ml 600 ml 240 ml IV Total 100 ml 0 ml Output Urine Total 850 ml 850 ml 600 ml Hemodialysis 5000 ml # Bowel Movements 0 0 1 Result Diagram: 01/09/17 1022 01/10/17 0455 Objective Remarks GENERAL: NAD SKIN: Warm and dry. HEAD: Normocephalic. EYES: No scleral icterus. No injection or drainage. NECK: Supple, trachea midline. No JVD or lymphadenopathy. CARDIOVASCULAR: Regular rate and rhythm without murmurs, gallops, or rubs. RESPIRATORY: Breath sounds equal bilaterally. No accessory muscle use. GASTROINTESTINAL: Abdomen soft, non-tender, nondistended. MUSCULOSKELETAL: No cyanosis, or edema. BACK: Nontender without obvious deformity. No CVA tenderness. Procedures paracentesis permacath placement AV graft placement A/P Problem List: (1) Acute renal failure ICD Code: N17.9 Status: Acute (2) IgA nephropathy determined by renal biopsy ICD Code: N02.8 Status: Acute (3) ESRD (end stage renal disease) on dialysis ICD Code: N18.6 Status: Acute (4) Cirrhosis ICD Code: K74.60 Status: Acute Assessment and Plan 46-year-old male with IgA nephropathy Acute on chronic renal failure End-stage renal disease on HD -on prednisone taper -Cellecept was discontinued. -Currently on HD on TTS schedule- s/p perma-cath and AV graft placement -monitor renal function Nephrology following:Dr. Mayer Alcoholic cirrhosis Acute abdominal pain Possible SBP Diagnostic paracentesis done;fluid culture negative. -finished the course of IV antibiotic per GI -evaluated by GI Thrombocytopeniasecondary to cirrhosis Possible portal vein thrombosis Leukocytosis Sepsis-resolved Possible spontaneous bacterial peritonitis-resolved -no anticoagulation per GI -surgery signed off- f/u as outpatient -monitor CBC anemia of chronic disease stool negative for blood. s/p PRBC transfusion. on epogen per nephrology monitor H/H periodically anxiety; xanax as needed. Prophylaxis: GI Prophylaxis Protonix DVT Prophylaxis -- SCDs -no chemical prophylaxis due to thrombocytopenia. Problem Qualifiers (1) Acute renal failure: Qualified Code: N17.9 - Acute renal failure, unspecified acute renal failure type Surendra Cooper MD Jan 11, 2017 10:55
[2017-01-11] MEDS: PANTOPRAZOLE SOD 40 MG DELAYED RELEASE TAB PO SCH (22:18)
[2017-01-11] MEDS: ZOLPIDEM TARTRATE 5 MG TAB PO PRN (22:18)
[2017-01-11] MEDS: DOCUSATE CALCIUM 240 MG CAP PO SCH (22:18)
[2017-01-11] MEDS: ONDANSETRON HCL 4 MG/2 ML VIAL IV PUSH PRN (22:18)
[2017-01-12] VITALS (20 sets, daily range): BP systolic 119–143; BP diastolic 74–87; PULSE 72–95; RESP 16–20; TEMP 97.8–99; O2SAT 95–100
[2017-01-12] MEDS: INSULIN NovoLIN REGULAR SUPPLEMENTAL SCALE SQ SCH ×4 (06:00→17:50)
[2017-01-12] MEDS: ALPRAZolam 0.25 MG TAB PO PRN ×4 (06:19→21:46)
--- NOTE | 2017-01-12 08:29 | HHI.PR ---
Subjective Remarks Follow-up IgA nephropathy/end-stage renal disease on hemodialysis 01/10/17-patient seen and examined in dialysis center, no acute event overnight. Discussed with patient regarding his dependence on narcotics. Afebrile 01/11/17-patient seen and examined, resting in no acute event overnight. Had hemodialysis yesterday 01/12/17-patient seen and examined, stable and no complaint. Plan for hemodialysis today Objective Vitals Vital Signs Date Time Temp Pulse Resp B/P Pulse Ox O2 Delivery O2 Flow Rate FiO2 01/12/17 07:00 98.0 74 20 134/84 96 01/12/17 07:00 82 01/12/17 06:00 80 01/12/17 05:00 80 01/12/17 04:48 98.8 83 16 143/87 100 01/12/17 04:00 72 01/12/17 03:00 76 01/12/17 02:00 76 01/12/17 01:18 98.9 81 16 119/79 95 01/12/17 01:00 78 01/12/17 00:00 78 01/11/17 23:00 84 01/11/17 22:00 82 01/11/17 21:00 82 01/11/17 20:24 98.9 87 16 140/84 95 01/11/17 20:00 94 01/11/17 19:00 81 01/11/17 18:00 72 01/11/17 17:00 70 01/11/17 16:00 69 01/11/17 15:00 98.5 87 20 147/86 94 01/11/17 15:00 76 01/11/17 14:00 89 01/11/17 13:00 93 01/11/17 12:00 93 01/11/17 11:00 97.5 89 20 135/84 97 01/11/17 11:00 74 01/11/17 10:00 87 01/11/17 09:00 80 I/O 01/11/17 01/11/17 01/11/17 01/12/17 01/12/17 01/12/17 07:00 15:00 23:00 07:00 15:00 23:00 Intake Total 240 ml 1440 ml 240 ml Output Total 600 ml 551 ml 700 ml Balance -360 ml 889 ml -460 ml Intake Oral 240 ml 1440 ml 240 ml IV Total 0 ml Output Urine Total 600 ml 550 ml 700 ml Stool Total 1 ml # Bowel Movements 1 1 Result Diagram: 01/09/17 1022 01/10/17 0455 Objective Remarks GENERAL: NAD SKIN: Warm and dry. HEAD: Normocephalic. EYES: No scleral icterus. No injection or drainage. NECK: Supple, trachea midline. No JVD or lymphadenopathy. CARDIOVASCULAR: Regular rate and rhythm without murmurs, gallops, or rubs. RESPIRATORY: Breath sounds equal bilaterally. No accessory muscle use. GASTROINTESTINAL: Abdomen soft, non-tender, nondistended. MUSCULOSKELETAL: No cyanosis, or edema. BACK: Nontender without obvious deformity. No CVA tenderness. Procedures paracentesis permacath placement AV graft placement A/P Problem List: (1) Acute renal failure ICD Code: N17.9 Status: Acute (2) IgA nephropathy determined by renal biopsy ICD Code: N02.8 Status: Acute (3) ESRD (end stage renal disease) on dialysis ICD Code: N18.6 Status: Acute (4) Cirrhosis ICD Code: K74.60 Status: Acute Assessment and Plan 46-year-old male with IgA nephropathy Acute on chronic renal failure End-stage renal disease on HD -on prednisone taper -Cellecept was discontinued. -Currently on HD on TTS schedule- s/p perma-cath and AV graft placement. Plan For hemodialysis today 01/12/17 -Continue to monitor renal function Nephrology following:Dr. Mayer Alcoholic cirrhosis Acute abdominal pain Possible SBP Diagnostic paracentesis done;fluid culture negative. -s/p IV antibiotic per GI -evaluated by GI Thrombocytopeniasecondary to cirrhosis Possible portal vein thrombosis Leukocytosis Sepsis-resolved Possible spontaneous bacterial peritonitis-resolved -no anticoagulation per GI -surgery signed off- f/u as outpatient -monitor CBC anemia of chronic disease-H&H stable stool negative for blood. s/p PRBC transfusion. on Epogen per nephrology anxiety; Xanax as needed. Prophylaxis: GI Prophylaxis Protonix DVT Prophylaxis -- SCDs -no chemical prophylaxis due to thrombocytopenia. Problem Qualifiers (1) Acute renal failure: Qualified Code: N17.9 - Acute renal failure, unspecified acute renal failure type Surendra Cooper MD Jan 12, 2017 08:29
--- NOTE | 2017-01-12 09:29 | HHI.NPPN ---
Subjective Complaints: Obesity General Problems: Edema Renal Failure: Chronic, Acute Additional Remarks Patient seen on HD, alert, no SOB, feeling better. Review of Systems General Constitutional: Fatigue Cardiovascular Cardiac: Edema Musculoskeletal MS: Pain/Stiffness MS Remarks left arm Objective Data Data 01/11/17 01/12/17 19:00 07:00 Intake Total 1680 ml 240 ml Output Total 1151 ml 700 ml Balance 529 ml -460 ml Intake Oral 1680 ml 240 ml IV Total 0 ml Output Urine Total 1150 ml 700 ml Stool Total 1 ml # Bowel Movements 1 1 Vital Signs Date Time Temp Pulse Resp B/P Pulse Ox O2 Delivery O2 Flow Rate FiO2 01/12/17 08:00 78 01/12/17 07:00 98.0 74 20 134/84 96 01/12/17 07:00 82 01/12/17 06:00 80 01/12/17 05:00 80 01/12/17 04:48 98.8 83 16 143/87 100 01/12/17 04:00 72 01/12/17 03:00 76 01/12/17 02:00 76 01/12/17 01:18 98.9 81 16 119/79 95 01/12/17 01:00 78 01/12/17 00:00 78 01/11/17 23:00 84 01/11/17 22:00 82 01/11/17 21:00 82 01/11/17 20:24 98.9 87 16 140/84 95 01/11/17 20:00 94 01/11/17 19:00 81 01/11/17 18:00 72 01/11/17 17:00 70 01/11/17 16:00 69 01/11/17 15:00 98.5 87 20 147/86 94 01/11/17 15:00 76 01/11/17 14:00 89 01/11/17 13:00 93 01/11/17 12:00 93 01/11/17 11:00 97.5 89 20 135/84 97 01/11/17 11:00 74 01/11/17 10:00 87 -: 01/09/17 1022 01/10/17 0455 Tubes & Lines: Perma-Cath Physical Exam General Appearance: Well Developed, Well Nourished, No Acute Distress, Comfortable, Obese Throat Throat Exam: Oral Mucosa [place] & Moist Pulmonary Resp Exam: Breath Sounds Equal, No Distress, Decreased Bases Cardiology CV Exam: Regular, Normal Sinus Rhythm Gastrointestinal/Abdomen GI Exam: Soft, Non-Tender Musculoskeletal MS Exam: Joints Intact, Normal Tone Integumentary Skin Exam: Clear, Warm, Dry, Intact Extremeties Extremities Exam: Pedal Pulses Palpable, Moderate Edema, Pitting Edema, Dependent Edema Neurologic Neuro Exam: Alert, Awake, Oriented, Speech Clear, Moving All Extremities Psychiatric Psych Exam: Appropriate Responses Assessment/Plan Discussed Condition With: Patient Assessment Summary: Fluid/Volume Overload, Hypertension, End Stage Renal Disease Problem List: (1) Acute renal failure Plan: Patient with 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 on prednisone taper (20 mg/day) Permcath in place, s/p AVF placement 01/07, vascular following goal is to go to [facility] when approved. HD now, remove fluid as tolerated. Told to restrict oral intake. (2) RPGN (rapidly progressive glomerulonephritis) Plan: see above (3) IgA nephropathy determined by renal biopsy Plan: on prednisone monitor renal function management as above he has progressed to ESRD (4) Thrombocytopenia Plan: likely due to cirrhosis of liver, hypersplenism. (5) Leukocytosis Plan: Resolved. Off antibiotics. Problem Qualifiers (1) Acute renal failure: Qualified Code: N17.9 - Acute renal failure, unspecified acute renal failure type Glenny Williamson MD Jan 12, 2017 09:29
[2017-01-12] MEDS: HEPARIN SODIUM - IV 10,000 UNITS/10 ML VIAL PRN (10:32)
[2017-01-12] MEDS: GENTAMICIN SULFATE (DIALYSIS USE ONLY) 20 MG/2 ML VIAL IV PRN (10:32)
[2017-01-12] MEDS: EPOETIN ALFA 10,000 UNITS/ML VIAL IV PRN (10:33)
[2017-01-12] MEDS: SEVELAMER CARBONATE 800 MG TAB PO SCH ×3 (12:00→17:43)
[2017-01-12] MEDS: BUMETANIDE 1 MG TAB PO SCH ×2 (12:03→17:44)
[2017-01-12] MEDS: SODIUM CHLORIDE 0.9% FLUSH 5 ML FLUSH FLUSH SCH ×2 (12:03→21:46)
[2017-01-12] MEDS: ALBUMIN HUMAN 25% 12.5 GM/50 ML BAGP IV SCH ×2 (12:03→21:47)
[2017-01-12] MEDS: predniSONE 20 MG TAB PO SCH (12:04)
[2017-01-12] MEDS: PANTOPRAZOLE SOD 40 MG DELAYED RELEASE TAB PO SCH (21:46)
[2017-01-12] MEDS: DOCUSATE CALCIUM 240 MG CAP PO SCH (21:46)
[2017-01-12] MEDS: ZOLPIDEM TARTRATE 5 MG TAB PO PRN (23:40)
[2017-01-13] VITALS (16 sets, daily range): BP systolic 123–154; BP diastolic 73–84; PULSE 72–90; RESP 16–18; TEMP 96.9–98.9; O2SAT 93–98
[2017-01-13] MEDS: INSULIN NovoLIN REGULAR SUPPLEMENTAL SCALE SQ SCH ×5 (06:00→23:15)
[2017-01-13] MEDS: ALPRAZolam 0.25 MG TAB PO PRN ×3 (06:29→23:17)
[2017-01-13] MEDS: ALBUMIN HUMAN 25% 12.5 GM/50 ML BAGP IV SCH ×2 (09:27→19:58)
[2017-01-13] MEDS: BUMETANIDE 1 MG TAB PO SCH ×2 (09:27→16:51)
[2017-01-13] MEDS: predniSONE 20 MG TAB PO SCH (09:27)
[2017-01-13] MEDS: SEVELAMER CARBONATE 800 MG TAB PO SCH ×3 (09:27→16:51)
[2017-01-13] MEDS: SODIUM CHLORIDE 0.9% FLUSH 5 ML FLUSH FLUSH SCH ×2 (09:28→19:59)
--- NOTE | 2017-01-13 09:36 | HHI.PR ---
Subjective Remarks Follow-up IgA nephropathy/end-stage renal disease on hemodialysis 01/10/17-patient seen and examined in dialysis center, no acute event overnight. Discussed with patient regarding his dependence on narcotics. Afebrile 01/11/17-patient seen and examined, resting in no acute event overnight. Had hemodialysis yesterday 01/12/17-patient seen and examined, stable and no complaint. Plan for hemodialysis today 01/13/17-patient seen and examined, no change and stable. Objective Vitals Vital Signs Date Time Temp Pulse Resp B/P Pulse Ox O2 Delivery O2 Flow Rate FiO2 01/13/17 07:27 98.9 87 16 132/84 95 01/13/17 03:00 79 01/13/17 02:00 88 01/13/17 01:16 98.2 85 16 128/84 97 01/13/17 01:00 84 01/13/17 00:00 80 01/12/17 23:00 86 01/12/17 22:00 86 01/12/17 21:07 99.0 95 16 127/74 96 01/12/17 21:00 86 01/12/17 19:00 88 01/12/17 16:13 98.2 81 20 128/78 98 01/12/17 11:50 97.8 92 20 130/80 100 01/12/17 10:00 75 I/O 01/12/17 01/12/17 01/12/17 01/13/17 01/13/17 01/13/17 07:00 15:00 23:00 07:00 15:00 23:00 Intake Total 240 ml 598 ml 720 ml Output Total 700 ml 600 ml 400 ml Balance -460 ml -2 ml 320 ml Intake Oral 240 ml 598 ml 720 ml Output Urine Total 700 ml 600 ml 400 ml # Bowel Movements 1 0 0 Result Diagram: 01/09/17 1022 01/10/17 0455 Objective Remarks GENERAL: NAD SKIN: Warm and dry. HEAD: Normocephalic. EYES: No scleral icterus. No injection or drainage. NECK: Supple, trachea midline. No JVD or lymphadenopathy. CARDIOVASCULAR: Regular rate and rhythm without murmurs, gallops, or rubs. RESPIRATORY: Breath sounds equal bilaterally. No accessory muscle use. GASTROINTESTINAL: Abdomen soft, non-tender, nondistended. MUSCULOSKELETAL: No cyanosis, or edema. BACK: Nontender without obvious deformity. No CVA tenderness. Procedures paracentesis permacath placement AV graft placement A/P Problem List: (1) Acute renal failure ICD Code: N17.9 Status: Acute (2) IgA nephropathy determined by renal biopsy ICD Code: N02.8 Status: Acute (3) ESRD (end stage renal disease) on dialysis ICD Code: N18.6 Status: Acute (4) Cirrhosis ICD Code: K74.60 Status: Acute Assessment and Plan 46-year-old male with IgA nephropathy Acute on chronic renal failure End-stage renal disease on HD -on prednisone taper -Cellecept was discontinued. -Currently on HD on TTS schedule- s/p perma-cath and AV graft placement. Had hemodialysis yesterday -Continue to monitor renal function Nephrology following:Dr. Mayer Alcoholic cirrhosis Acute abdominal pain Possible SBP Diagnostic paracentesis done;fluid culture negative. -s/p IV antibiotic per GI -evaluated by GI Thrombocytopeniasecondary to cirrhosis Possible portal vein thrombosis Leukocytosis Sepsis-resolved Possible spontaneous bacterial peritonitis-resolved -no anticoagulation per GI -surgery signed off- f/u as outpatient anemia of chronic disease-H&H stable stool negative for blood. s/p PRBC transfusion. on Epogen per nephrology anxiety; Xanax as needed. Prophylaxis: GI Prophylaxis Protonix DVT Prophylaxis -- SCDs -no chemical prophylaxis due to thrombocytopenia. Discharge Planning Hopefully discharged next week when arrangement is made Problem Qualifiers (1) Acute renal failure: Qualified Code: N17.9 - Acute renal failure, unspecified acute renal failure type Surendra Cooper MD Jan 13, 2017 09:35
--- NOTE | 2017-01-13 13:18 | HHI.NPPN ---
Subjective Complaints: Obesity General Problems: Edema Renal Failure: Chronic, Acute Additional Remarks Patient is alert, no complain, has HD done yesterday. Review of Systems General Constitutional: Fatigue Cardiovascular Cardiac: Edema Musculoskeletal MS: Pain/Stiffness MS Remarks left arm Objective Data Data 01/12/17 01/13/17 19:00 07:00 Intake Total 598 ml 720 ml Output Total 600 ml 400 ml Balance -2 ml 320 ml Intake Oral 598 ml 720 ml Output Urine Total 600 ml 400 ml # Bowel Movements 0 0 Vital Signs Date Time Temp Pulse Resp B/P Pulse Ox O2 Delivery O2 Flow Rate FiO2 01/13/17 11:01 74 01/13/17 10:00 74 01/13/17 09:00 90 01/13/17 08:45 98.1 85 16 123/73 98 01/13/17 08:00 72 01/13/17 07:27 98.9 87 16 132/84 95 01/13/17 07:00 74 01/13/17 03:00 79 01/13/17 02:00 88 01/13/17 01:16 98.2 85 16 128/84 97 01/13/17 01:00 84 01/13/17 00:00 80 01/12/17 23:00 86 01/12/17 22:00 86 01/12/17 21:07 99.0 95 16 127/74 96 01/12/17 21:00 86 01/12/17 19:00 88 01/12/17 16:13 98.2 81 20 128/78 98 -: 01/09/17 1022 01/10/17 0455 Tubes & Lines: Perma-Cath Physical Exam General Appearance: Well Developed, Well Nourished, No Acute Distress, Comfortable, Obese Throat Throat Exam: Oral Mucosa [place] & Moist Pulmonary Resp Exam: Breath Sounds Equal, No Distress, Decreased Bases Cardiology CV Exam: Regular, Normal Sinus Rhythm Gastrointestinal/Abdomen GI Exam: Soft, Non-Tender Musculoskeletal MS Exam: Joints Intact, Normal Tone Integumentary Skin Exam: Clear, Warm, Dry, Intact Extremeties Extremities Exam: Pedal Pulses Palpable, Moderate Edema, Pitting Edema, Dependent Edema Neurologic Neuro Exam: Alert, Awake, Oriented, Speech Clear, Moving All Extremities Psychiatric Psych Exam: Appropriate Responses Assessment/Plan Discussed Condition With: Patient Assessment Summary: Fluid/Volume Overload, Hypertension, End Stage Renal Disease Problem List: (1) Acute renal failure Plan: Patient with 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 on prednisone taper (20 mg/day) Permcath in place, s/p AVF placement 01/07, vascular following goal is to go to [facility] when approved. HD done yesterday. To D/C once arrangements for out patient HD done. (2) RPGN (rapidly progressive glomerulonephritis) Plan: see above (3) IgA nephropathy determined by renal biopsy Plan: on prednisone monitor renal function management as above he has progressed to ESRD (4) Thrombocytopenia Plan: likely due to cirrhosis of liver, hypersplenism. (5) Leukocytosis Plan: Resolved. Off antibiotics. Problem Qualifiers (1) Acute renal failure: Qualified Code: N17.9 - Acute renal failure, unspecified acute renal failure type Glenny Williamson MD Jan 13, 2017 13:18
[2017-01-13] MEDS ORDERED: MAGNESIUM HYDROXIDE SUSP 30 ML CUP PO PRN (18:15)
[2017-01-13] MEDS: PANTOPRAZOLE SOD 40 MG DELAYED RELEASE TAB PO SCH (19:59)
[2017-01-13] MEDS: DOCUSATE CALCIUM 240 MG CAP PO SCH (19:59)
[2017-01-14] VITALS: BP 163/80; PULSE 88; RESP 19; TEMP 96.8; O2SAT 95
[2017-01-14] MEDS: ZOLPIDEM TARTRATE 5 MG TAB PO PRN (00:27)
[2017-01-14 04:00] VITALS: BP 157/82; PULSE 82; RESP 19; TEMP 96.4; O2SAT 100
[2017-01-14] MEDS: INSULIN NovoLIN REGULAR SUPPLEMENTAL SCALE SQ SCH ×3 (05:18→18:00)
[2017-01-14] MEDS: ALPRAZolam 0.25 MG TAB PO PRN ×2 (05:18→18:10)
[2017-01-14 08:00] VITALS: BP 144/96; PULSE 86; RESP 16; TEMP 98.1; O2SAT 97
[2017-01-14] MEDS: predniSONE 20 MG TAB PO SCH (09:12)
[2017-01-14] MEDS: SODIUM CHLORIDE 0.9% FLUSH 5 ML FLUSH FLUSH SCH ×2 (09:12→20:08)
[2017-01-14] MEDS: SEVELAMER CARBONATE 800 MG TAB PO SCH ×3 (09:12→18:08)
[2017-01-14] MEDS: BUMETANIDE 1 MG TAB PO SCH ×2 (09:12→18:08)
[2017-01-14] MEDS: ALBUMIN HUMAN 25% 12.5 GM/50 ML BAGP IV SCH ×2 (09:13→20:08)
--- NOTE | 2017-01-14 10:32 | PD.VS.PN ---
Subjective Subjective/Hospital Course Pt in bed without complaints Incision to LUE intact without swelling/redness/drainage Objective Vitals/I&O Date Time Temp Pulse Resp B/P Pulse Ox O2 Delivery O2 Flow Rate FiO2 01/14/17 08:00 98.1 86 16 144/96 97 01/14/17 04:00 96.4 82 19 157/82 100 01/14/17 00:00 96.8 88 19 163/80 95 01/13/17 20:00 96.9 74 18 152/82 94 01/13/17 16:40 97.8 77 18 154/74 94 01/13/17 15:30 98.4 87 16 125/76 93 01/13/17 11:30 98.3 77 18 130/74 95 01/13/17 11:01 74 01/14/17 01/14/17 01/14/17 07:00 15:00 23:00 Intake Total 240 ml Output Total 650 ml Balance -410 ml Physical Exam LUE incision intact BUE with equal page makeup system operator strength, motor intact + bilat strong radial pulses LUE AVF with + thrill Laboratory Date/Time Procedure Status Source Growth 01/09/17 11:13 Urine Culture - Final Complete Urine Clean Catch NO GROWTH IN 48 HOURS. Assessment and Plan Assessment: (1) Renal failure Status: Chronic Plan Patient is 46 year old male with ESRD requiring hemodialysis. Status post left upper extremity BC AVF AVF patent and incision intact. Will see patient in our OPC for follow-up at scheduled appointment time on 01/23 at 1045 Crissy CHESTER/Navneet [phone] Discharge Planning From Vascular stand point pt is Ok to be D/C'd Will see pt in our OPC Crissy Ledbetter Jan 14, 2017 10:31
--- NOTE | 2017-01-14 10:37 | HHI.PR ---
Subjective Remarks Follow-up IgA nephropathy/end-stage renal disease on hemodialysis 01/10/17-patient seen and examined in dialysis center, no acute event overnight. Discussed with patient regarding his dependence on narcotics. Afebrile 01/11/17-patient seen and examined, resting in no acute event overnight. Had hemodialysis yesterday 01/12/17-patient seen and examined, stable and no complaint. Plan for hemodialysis today 01/13/17-patient seen and examined, no change and stable. 01/14/17-patient seen and examined; he had hemodialysis yesterday, stable and no complaint; states he is putting up more urine Objective Vitals Vital Signs Date Time Temp Pulse Resp B/P Pulse Ox O2 Delivery O2 Flow Rate FiO2 01/14/17 08:00 98.1 86 16 144/96 97 01/14/17 04:00 96.4 82 19 157/82 100 01/14/17 00:00 96.8 88 19 163/80 95 01/13/17 20:00 96.9 74 18 152/82 94 01/13/17 16:40 97.8 77 18 154/74 94 01/13/17 15:30 98.4 87 16 125/76 93 01/13/17 11:30 98.3 77 18 130/74 95 01/13/17 11:01 74 I/O 01/13/17 01/13/17 01/13/17 01/14/17 01/14/17 01/14/17 07:00 15:00 23:00 07:00 15:00 23:00 Intake Total 720 ml 770 ml 240 ml Output Total 400 ml 150 ml 900 ml 650 ml Balance 320 ml -150 ml -130 ml -410 ml Intake Oral 720 ml 720 ml 240 ml IV Total 50 ml Output Urine Total 400 ml 150 ml 900 ml 650 ml # Voids 2 # Bowel Movements 0 0 Result Diagram: 01/10/17 0455 Objective Remarks GENERAL: NAD SKIN: Warm and dry. HEAD: Normocephalic. EYES: No scleral icterus. No injection or drainage. NECK: Supple, trachea midline. No JVD or lymphadenopathy. CARDIOVASCULAR: Regular rate and rhythm without murmurs, gallops, or rubs. RESPIRATORY: Breath sounds equal bilaterally. No accessory muscle use. GASTROINTESTINAL: Abdomen soft, non-tender, nondistended. MUSCULOSKELETAL: No cyanosis, or edema. BACK: Nontender without obvious deformity. No CVA tenderness. Procedures paracentesis permacath placement AV graft placement A/P Problem List: (1) Acute renal failure ICD Code: N17.9 Status: Acute (2) IgA nephropathy determined by renal biopsy ICD Code: N02.8 Status: Acute (3) ESRD (end stage renal disease) on dialysis ICD Code: N18.6 Status: Acute (4) Cirrhosis ICD Code: K74.60 Status: Acute Assessment and Plan 46-year-old male with IgA nephropathy Acute on chronic renal failure End-stage renal disease on HD -on prednisone taper -Cellecept was discontinued. -Currently on HD on TTS schedule- s/p perma-cath and AV graft placement. Had hemodialysis yesterday -Continue to monitor renal function Nephrology following:Dr. Mayer Alcoholic cirrhosis Acute abdominal pain Possible SBP Diagnostic paracentesis done;fluid culture negative. -s/p IV antibiotic per GI -evaluated by GI Thrombocytopeniasecondary to cirrhosis Possible portal vein thrombosis Leukocytosis Sepsis-resolved Possible spontaneous bacterial peritonitis-resolved -no anticoagulation per GI -surgery signed off- f/u as outpatient anemia of chronic disease-H&H stable stool negative for blood. s/p PRBC transfusion. on Epogen per nephrology anxiety; Xanax as needed. Prophylaxis: GI Prophylaxis Protonix DVT Prophylaxis -- SCDs -no chemical prophylaxis due to thrombocytopenia. Continue with current treatment as of 01/14/17 Discharge Planning Hopefully discharged this week when arrangement is made Problem Qualifiers (1) Acute renal failure: Qualified Code: N17.9 - Acute renal failure, unspecified acute renal failure type Surendra Cooper MD Jan 14, 2017 10:37
--- NOTE | 2017-01-14 11:18 | HHI.NPPN ---
Subjective Complaints: Obesity General Problems: Edema Renal Failure: Chronic, Acute Interval History He is making a fair amount of urine. Eating well. Pending insurance approval for discharge. (Helen Gaspar) Review of Systems General Constitutional: Fatigue (Helen Gaspar) Cardiovascular Cardiac: Edema (Helen Gaspar) Musculoskeletal MS: Pain/Stiffness MS Remarks left arm (Helen Gaspar) Objective Data Data 01/13/17 01/14/17 19:00 07:00 Intake Total 530 ml 480 ml Output Total 550 ml 1150 ml Balance -20 ml -670 ml Intake Oral 480 ml 480 ml IV Total 50 ml Output Urine Total 550 ml 1150 ml # Voids 2 # Bowel Movements 0 Vital Signs Date Time Temp Pulse Resp B/P Pulse Ox O2 Delivery O2 Flow Rate FiO2 01/14/17 08:00 98.1 86 16 144/96 97 01/14/17 04:00 96.4 82 19 157/82 100 01/14/17 00:00 96.8 88 19 163/80 95 01/13/17 20:00 96.9 74 18 152/82 94 01/13/17 16:40 97.8 77 18 154/74 94 01/13/17 15:30 98.4 87 16 125/76 93 01/13/17 11:30 98.3 77 18 130/74 95 (Helen Gaspar) -: 01/10/17 0455 Tubes & Lines: Perma-Cath (Helen Gaspar) Physical Exam General Appearance: Well Developed, Well Nourished, No Acute Distress, Comfortable, Obese (Helen Gaspar) Throat Throat Exam: Oral Mucosa [place] & Moist (Helen Gaspar) Pulmonary Resp Exam: Breath Sounds Equal, No Distress, Decreased Bases (Helen Gaspar) Cardiology CV Exam: Regular, Normal Sinus Rhythm (Helen Gaspar) Gastrointestinal/Abdomen GI Exam: Soft, Non-Tender (Helen Gaspar) Genitourinary Remarks dark hematuria (Helen Gaspar) Musculoskeletal MS Exam: Joints Intact, Normal Tone (Helen Gaspar) Integumentary Skin Exam: Clear, Warm, Dry, Intact Skin Remarks AVF left AC (Helen Gaspar) Extremeties Extremities Exam: Pedal Pulses Palpable, Moderate Edema, Pitting Edema, Dependent Edema Extremeties Remarks left arm AVF at AC fossa healing well, good thrill/bruit (Helen Gaspar) Neurologic Neuro Exam: Alert, Awake, Oriented, Speech Clear, Moving All Extremities ( Helen Gaspar) Psychiatric Psych Exam: Appropriate Responses (Helen Gaspar) Assessment/Plan Discussed Condition With: Patient Assessment Summary: Fluid/Volume Overload, Hypertension, End Stage Renal Disease Problem List: (1) Acute renal failure Plan: Patient with ESRD due to Iga nephropathy with RPGN T-Th-Sat dialysis, due tomorrow continue Bumex 2 po BID on oral fluid restriction UA revealed hematuria. on prednisone taper, reduce to 15 mg/day Permcath in place, s/p AVF placement 01/07, vascular following goal is to go to [facility] when approved. (2) RPGN (rapidly progressive glomerulonephritis) Plan: see above (3) IgA nephropathy determined by renal biopsy Plan: on prednisone monitor renal function management as above he has progressed to ESRD (4) Thrombocytopenia Plan: likely due to cirrhosis of liver, hypersplenism. (5) Leukocytosis Plan: Resolved. Off antibiotics. (Helen Gaspar) Plan patient was seen and examined. He is non oliguric. Seen during dialysis. Continues to have significant lower extremity edema. (Fredo Mayer MD) Problem Qualifiers (1) Acute renal failure: Qualified Code: N17.9 - Acute renal failure, unspecified acute renal failure type Helen Gaspar Jan 14, 2017 11:18 Fredo Mayer MD Jan 15, 2017 11:34
[2017-01-14 12:00] VITALS: BP 161/95; PULSE 77; RESP 16; TEMP 97.9; O2SAT 96
[2017-01-14 16:00] VITALS: BP 143/93; PULSE 85; RESP 16; TEMP 98; O2SAT 97
[2017-01-14 20:00] VITALS: BP 155/80; PULSE 77; RESP 18; TEMP 96.8; O2SAT 98
[2017-01-14] MEDS: DOCUSATE CALCIUM 240 MG CAP PO SCH (20:11)
[2017-01-14] MEDS: PANTOPRAZOLE SOD 40 MG DELAYED RELEASE TAB PO SCH (20:11)
[2017-01-15] VITALS: BP 134/63; PULSE 75; RESP 18; TEMP 97.7; O2SAT 97
[2017-01-15] MEDS: ALPRAZolam 0.25 MG TAB PO PRN ×3 (00:34→22:17)
[2017-01-15] MEDS: ZOLPIDEM TARTRATE 5 MG TAB PO PRN ×2 (00:34→22:18)
[2017-01-15 04:45] VITALS: BP 135/63; PULSE 74; RESP 18; TEMP 97.7; O2SAT 96
[2017-01-15] MEDS: INSULIN NovoLIN REGULAR SUPPLEMENTAL SCALE SQ SCH ×4 (05:31→18:39)
[2017-01-15 06:52] LABS: AUTOMATED NEUTROPHIL # 3.4 TH/MM3 (1.8-7.7); BASOPHIL % 0.4 % (0.0-2.0); EOSINOPHIL # 0.1 TH/MM3 (0-0.4); EOSINOPHIL % 1.7 % (0.0-4.0); HEMATOCRIT 27.6 % (39.0-51.0); LYMPH % 29.2 % (9.0-44.0); LYMPHOCYTE # 1.8 TH/MM3 (1.0-4.8); MEAN CELL VOLUME 95.1 FL (80.0-100.0); MEAN CORPUSCULAR HEMOGLOBIN 32.9 PG (27.0-34.0); MEAN CORPUSCULAR HGB CONC 34.6 % (32.0-36.0); MONO % 12.8 % (0.0-8.0); NEUT % 55.9 % (16.0-70.0); PLATELET COUNT 67 TH/MM3 (150-450); RED CELL DISTRIBUTION WIDTH 15.8 % (11.6-17.2); WHITE BLOOD COUNT 6.1 TH/MM3 (4.0-11.0)
[2017-01-15 06:58] LABS: HEMO FLAGS AUTO DIFF
[2017-01-15 07:22] LABS: POTASSIUM 3.4 MEQ/L (3.5-5.1)
[2017-01-15 07:26] LABS: PLATELET ESTIMATE SMEAR LOW (NORMAL); PLATELET MORPHOLOGY NORMAL (NORMAL); SCAN/DIFF AUTO DIFF CONFIRMED
[2017-01-15 08:00] VITALS: BP 136/87; PULSE 76; RESP 16; TEMP 97.7; O2SAT 94
[2017-01-15] MEDS: SEVELAMER CARBONATE 800 MG TAB PO SCH ×3 (08:00→18:39)
[2017-01-15] MEDS: HEPARIN SODIUM - IV 10,000 UNITS/10 ML VIAL PRN (08:46)
[2017-01-15] MEDS: SODIUM CHLOR 0.9% 1000 ML INJ 1,000 ML IV PRN (08:46)
[2017-01-15] MEDS: EPOETIN ALFA 10,000 UNITS/ML VIAL IV PRN (08:47)
[2017-01-15] MEDS: GENTAMICIN SULFATE (DIALYSIS USE ONLY) 20 MG/2 ML VIAL IV PRN (08:47)
--- NOTE | 2017-01-15 08:50 | HHI.NPPN ---
Subjective Complaints: Obesity General Problems: Edema Renal Failure: Chronic, Acute Interval History Seen during dialysis. He has no new concerns. Sleeping well. (Helen Gaspar) Review of Systems General Constitutional: Fatigue (Helen Gaspar) Cardiovascular Cardiac: Edema (Helen Gaspar) Musculoskeletal MS: Pain/Stiffness MS Remarks left arm (Helen Gaspar) Objective Data Data 01/14/17 01/15/17 19:00 07:00 Intake Total 675 ml 110 ml Output Total 800 ml Balance -125 ml 110 ml Intake Oral 600 ml IV Total 75 ml 110 ml Output Urine Total 800 ml # Voids 2 Vital Signs Date Time Temp Pulse Resp B/P Pulse Ox O2 Delivery O2 Flow Rate FiO2 01/15/17 04:45 97.7 74 18 135/63 96 01/15/17 00:00 97.7 75 18 134/63 97 01/14/17 20:00 96.8 77 18 155/80 98 01/14/17 16:00 98.0 85 16 143/93 97 01/14/17 12:00 97.9 77 16 161/95 96 (Helen Gaspar) -: 01/15/17 0550 01/15/17 0550 Tubes & Lines: Perma-Cath (Helen Gaspar) Physical Exam General Appearance: Well Developed, Well Nourished, No Acute Distress, Comfortable, Obese (Helen Gaspar) Throat Throat Exam: Oral Mucosa [place] & Moist (Helen Gaspar) Pulmonary Resp Exam: Breath Sounds Equal, No Distress, Decreased Bases (Helen Gaspar) Cardiology CV Exam: Regular, Normal Sinus Rhythm (Helen Gaspar) Gastrointestinal/Abdomen GI Exam: Soft, Non-Tender (Helen Gaspar) Genitourinary Remarks dark hematuria (Helen Gaspar) Musculoskeletal MS Exam: Joints Intact, Normal Gait, Normal Tone (Helen Gaspar) Integumentary Skin Exam: Clear, Warm, Dry, Intact Skin Remarks AVF left AC (Helen Gaspar) Extremeties Extremities Exam: Pedal Pulses Palpable, Moderate Edema, Pitting Edema, Dependent Edema Extremeties Remarks left arm AVF at AC fossa healing well, good thrill/bruit (Helen Gaspar) Neurologic Neuro Exam: Alert, Awake, Oriented, Speech Clear, Moving All Extremities ( Helen Gaspar) Psychiatric Psych Exam: Appropriate Responses (Helen Gaspar) Assessment/Plan Discussed Condition With: Patient Assessment Summary: Fluid/Volume Overload, Hypertension, End Stage Renal Disease Problem List: (1) Acute renal failure Plan: Patient with ESRD due to Iga nephropathy with RPGN T-Th-Sat dialysis, seen during treatment on a 4K, 350 BFR, goal 5L continue Bumex 2 po BID on oral fluid restriction, now beginning negative fluid balance on prednisone taper, dose now 15 mg/day Permcath in place, s/p AVF placement 01/07, vascular following goal is to go to [facility] when approved. (2) RPGN (rapidly progressive glomerulonephritis) Plan: see above (3) IgA nephropathy determined by renal biopsy Plan: on prednisone management as above he has progressed to ESRD (4) Anemia Plan: epogen with dialysis (5) Thrombocytopenia Plan: likely due to cirrhosis of liver, hypersplenism. (6) Leukocytosis Plan: Resolved. Off antibiotics. (Helen Gaspar) Plan patient was seen and examined. His creatinine has improved. Renal recovery? Delayed response to CellCept and Prednisone. Continue dialysis for now at least for fluid removal. (Fredo Mayer MD) Problem Qualifiers (1) Acute renal failure: Qualified Code: N17.9 - Acute renal failure, unspecified acute renal failure type Helen Gaspar Jan 15, 2017 08:49 Fredo Mayer MD Jan 15, 2017 11:47
--- NOTE | 2017-01-15 09:16 | HHI.PR ---
Subjective Remarks Follow-up IgA nephropathy/end-stage renal disease on hemodialysis 01/10/17-patient seen and examined in dialysis center, no acute event overnight. Discussed with patient regarding his dependence on narcotics. Afebrile 01/11/17-patient seen and examined, resting in no acute event overnight. Had hemodialysis yesterday 01/12/17-patient seen and examined, stable and no complaint. Plan for hemodialysis today 01/13/17-patient seen and examined, no change and stable. 01/14/17-patient seen and examined; he had hemodialysis yesterday, stable and no complaint; states he is putting up more urine 01/15/17-patient seen and examined, he was seen in dialysis center. Stable and no complaint. Case discussed with patient case coordinator this morning Objective Vitals Vital Signs Date Time Temp Pulse Resp B/P Pulse Ox O2 Delivery O2 Flow Rate FiO2 01/15/17 08:00 97.7 76 16 136/87 94 01/15/17 04:45 97.7 74 18 135/63 96 01/15/17 00:00 97.7 75 18 134/63 97 01/14/17 20:00 96.8 77 18 155/80 98 01/14/17 16:00 98.0 85 16 143/93 97 01/14/17 12:00 97.9 77 16 161/95 96 I/O 01/14/17 01/14/17 01/14/17 01/15/17 01/15/17 01/15/17 07:00 15:00 23:00 07:00 15:00 23:00 Intake Total 240 ml 675 ml 110 ml Output Total 650 ml 500 ml 300 ml Balance -410 ml 175 ml -190 ml Intake Oral 240 ml 600 ml IV Total 75 ml 110 ml Output Urine Total 650 ml 500 ml 300 ml # Voids 2 Result Diagram: 01/15/17 0550 01/15/17 0550 Objective Remarks GENERAL: NAD and supervisor product inspection to HD machine SKIN: Warm and dry. HEAD: Normocephalic. EYES: No scleral icterus. No injection or drainage. NECK: Supple, trachea midline. No JVD or lymphadenopathy. CARDIOVASCULAR: Regular rate and rhythm without murmurs, gallops, or rubs. RESPIRATORY: Breath sounds equal bilaterally. No accessory muscle use. GASTROINTESTINAL: Abdomen soft, non-tender, nondistended. MUSCULOSKELETAL: No cyanosis, or edema. BACK: Nontender without obvious deformity. No CVA tenderness. Procedures paracentesis permacath placement AV graft placement A/P Problem List: (1) Acute renal failure ICD Code: N17.9 Status: Acute (2) IgA nephropathy determined by renal biopsy ICD Code: N02.8 Status: Acute (3) ESRD (end stage renal disease) on dialysis ICD Code: N18.6 Status: Acute (4) Cirrhosis ICD Code: K74.60 Status: Acute Assessment and Plan 46-year-old male with IgA nephropathy Acute on chronic renal failure End-stage renal disease on HD -on prednisone taper -Cellecept was discontinued. -Currently on HD on TTS schedule- s/p perma-cath and AV graft placement. getting HD today -Continue to monitor renal function Nephrology following:Dr. Mayer Alcoholic cirrhosis Acute abdominal pain Possible SBP Diagnostic paracentesis done;fluid culture negative. -s/p IV antibiotic per GI -evaluated by GI Thrombocytopeniasecondary to cirrhosis Possible portal vein thrombosis Leukocytosis Sepsis-resolved Possible spontaneous bacterial peritonitis-resolved -no anticoagulation per GI -surgery signed off- f/u as outpatient anemia of chronic disease-H&H stable stool negative for blood. s/p PRBC transfusion. on Epogen per nephrology anxiety; Xanax as needed. Prophylaxis: GI Prophylaxis Protonix DVT Prophylaxis -- SCDs -no chemical prophylaxis due to thrombocytopenia. Continue with current treatment as of 01/15/17 Discharge Planning Hopefully discharged when arrangement is made Problem Qualifiers (1) Acute renal failure: Qualified Code: N17.9 - Acute renal failure, unspecified acute renal failure type Surendra Cooper MD Jan 15, 2017 09:16
[2017-01-15] MEDS: ALBUMIN HUMAN 25% 12.5 GM/50 ML BAGP IV SCH ×2 (11:54→22:19)
[2017-01-15] MEDS: BUMETANIDE 1 MG TAB PO SCH ×2 (11:54→18:39)
[2017-01-15] MEDS: SODIUM CHLORIDE 0.9% FLUSH 5 ML FLUSH FLUSH SCH ×2 (11:55→22:18)
[2017-01-15] MEDS: predniSONE 5 MG TAB PO SCH (11:55)
[2017-01-15 12:30] VITALS: BP 128/74; PULSE 84; RESP 16; TEMP 97.8; O2SAT 97
[2017-01-15 16:00] VITALS: BP 124/73; PULSE 84; RESP 16; TEMP 98.2; O2SAT 96
[2017-01-15 20:00] VITALS: BP 145/71; PULSE 89; RESP 18; TEMP 97.3; O2SAT 95
[2017-01-15] MEDS: PANTOPRAZOLE SOD 40 MG DELAYED RELEASE TAB PO SCH (22:18)
[2017-01-15] MEDS: DOCUSATE CALCIUM 240 MG CAP PO SCH (22:18)
[2017-01-16] VITALS (7 sets, daily range): BP systolic 115–163; BP diastolic 71–88; PULSE 85–107; RESP 18–20; TEMP 96.9–99.1; O2SAT 91–97
[2017-01-16] MEDS: ALPRAZolam 0.25 MG TAB PO PRN ×2 (05:24→12:39)
[2017-01-16] MEDS: INSULIN NovoLIN REGULAR SUPPLEMENTAL SCALE SQ SCH ×4 (06:00→18:00)
[2017-01-16] MEDS: SEVELAMER CARBONATE 800 MG TAB PO SCH ×3 (09:42→17:43)
[2017-01-16] MEDS: predniSONE 5 MG TAB PO SCH (09:42)
[2017-01-16] MEDS: BUMETANIDE 1 MG TAB PO SCH ×2 (09:42→17:43)
[2017-01-16] MEDS: ALBUMIN HUMAN 25% 12.5 GM/50 ML BAGP IV SCH ×2 (09:43→20:44)
[2017-01-16] MEDS: SODIUM CHLORIDE 0.9% FLUSH 5 ML FLUSH FLUSH SCH ×2 (09:45→20:45)
--- NOTE | 2017-01-16 10:29 | HHI.PR ---
Subjective Remarks Follow-up IgA nephropathy/end-stage renal disease on hemodialysis 01/10/17-patient seen and examined in dialysis center, no acute event overnight. Discussed with patient regarding his dependence on narcotics. Afebrile 01/11/17-patient seen and examined, resting in no acute event overnight. Had hemodialysis yesterday 01/12/17-patient seen and examined, stable and no complaint. Plan for hemodialysis today 01/13/17-patient seen and examined, no change and stable. 01/14/17-patient seen and examined; he had hemodialysis yesterday, stable and no complaint; states he is putting up more urine 01/15/17-patient seen and examined, he was seen in dialysis center. Stable and no complaint. Case discussed with case monitor this morning 01/16/17-patient seen and examined, had hemodialysis yesterday, has no complaint today. Objective Vitals Vital Signs Date Time Temp Pulse Resp B/P Pulse Ox O2 Delivery O2 Flow Rate FiO2 01/16/17 07:50 98.1 89 20 145/80 91 01/16/17 04:00 97.9 85 18 129/71 94 01/16/17 00:00 97.7 93 18 153/88 95 01/15/17 20:00 97.3 89 18 145/71 95 01/15/17 16:00 98.2 84 16 124/73 96 01/15/17 12:30 97.8 84 16 128/74 97 I/O 01/15/17 01/15/17 01/15/17 01/16/17 01/16/17 01/16/17 07:00 15:00 23:00 07:00 15:00 23:00 Intake Total 600 ml 200 ml Output Total 5800 ml 550 ml 250 ml Balance -5200 ml -350 ml -250 ml Intake Oral 600 ml 200 ml Output Urine Total 800 ml 550 ml 250 ml Hemodialysis 5000 ml # Voids 2 Result Diagram: 01/15/17 0550 01/15/17 0550 Objective Remarks GENERAL: NAD SKIN: Warm and dry. HEAD: Normocephalic. EYES: No scleral icterus. No injection or drainage. NECK: Supple, trachea midline. No JVD or lymphadenopathy. CARDIOVASCULAR: Regular rate and rhythm without murmurs, gallops, or rubs. RESPIRATORY: Breath sounds equal bilaterally. No accessory muscle use. GASTROINTESTINAL: Abdomen soft, non-tender, nondistended. MUSCULOSKELETAL: No cyanosis, or edema. BACK: Nontender without obvious deformity. No CVA tenderness. Procedures paracentesis permacath placement AV graft placement A/P Problem List: (1) Acute renal failure ICD Code: N17.9 Status: Acute (2) IgA nephropathy determined by renal biopsy ICD Code: N02.8 Status: Acute (3) ESRD (end stage renal disease) on dialysis ICD Code: N18.6 Status: Acute (4) Cirrhosis ICD Code: K74.60 Status: Acute Assessment and Plan 46-year-old male with IgA nephropathy Acute on chronic renal failure End-stage renal disease on HD -on prednisone taper -Cellecept was discontinued. -Currently on HD on TTS schedule- s/p perma-cath and AV graft placement. getting HD today -Continue to monitor renal function Nephrology following:Dr. Mayer Alcoholic cirrhosis Acute abdominal pain Possible SBP Diagnostic paracentesis done;fluid culture negative. -s/p IV antibiotic per GI -evaluated by GI Thrombocytopeniasecondary to cirrhosis Possible portal vein thrombosis Leukocytosis Sepsis-resolved Possible spontaneous bacterial peritonitis-resolved -no anticoagulation per GI -surgery signed off- f/u as outpatient anemia of chronic disease-H&H stable stool negative for blood. s/p PRBC transfusion. on Epogen per nephrology anxiety; Xanax as needed. Prophylaxis: GI Prophylaxis Protonix DVT Prophylaxis -- SCDs -no chemical prophylaxis due to thrombocytopenia. Continue with current treatment as of 01/16/17 Discharge Planning Hopefully discharged when arrangement is made Problem Qualifiers (1) Acute renal failure: Qualified Code: N17.9 - Acute renal failure, unspecified acute renal failure type Surendra Cooper MD Jan 16, 2017 10:29
--- NOTE | 2017-01-16 11:10 | HHI.NPPN ---
Subjective Complaints: Obesity General Problems: Edema Renal Failure: Chronic, Acute Interval History No insurance updates. He has a cold sore. Had dialysis yesterday. (Helen Gaspar) Review of Systems General Constitutional: Fatigue (Helen Gaspar) Cardiovascular Cardiac: Edema (Helen aGspar) Musculoskeletal MS: Pain/Stiffness MS Remarks left arm (Helen Gaspar) Objective Data Data 01/15/17 01/16/17 19:00 07:00 Intake Total 600 ml 200 ml Output Total 5800 ml 800 ml Balance -5200 ml -600 ml Intake Oral 600 ml 200 ml Output Urine Total 800 ml 800 ml Hemodialysis 5000 ml Vital Signs Date Time Temp Pulse Resp B/P Pulse Ox O2 Delivery O2 Flow Rate FiO2 01/16/17 07:50 98.1 89 20 145/80 91 01/16/17 04:00 97.9 85 18 129/71 94 01/16/17 00:00 97.7 93 18 153/88 95 01/15/17 20:00 97.3 89 18 145/71 95 01/15/17 16:00 98.2 84 16 124/73 96 01/15/17 12:30 97.8 84 16 128/74 97 (Helen Gaspar) -: 01/15/17 0550 01/15/17 0550 Tubes & Lines: Perma-Cath (Helen Gaspar) Physical Exam General Appearance: Well Developed, Well Nourished, No Acute Distress, Comfortable, Obese Appearance Remarks lower lip cold sore (Helen Gaspar) Throat Throat Exam: Oral Mucosa [place] & Moist (Helen Gaspar) Pulmonary Resp Exam: Breath Sounds Equal, No Distress, Decreased Bases (Helen Gaspar) Cardiology CV Exam: Regular, Normal Sinus Rhythm (Helen Gaspar) Gastrointestinal/Abdomen GI Exam: Soft, Non-Tender (Helen Gaspar) Genitourinary Remarks dark hematuria (Helen Gaspar) Musculoskeletal MS Exam: Joints Intact, Normal Gait, Normal Tone (Helen Gaspar) Integumentary Skin Exam: Clear, Warm, Dry, Intact Skin Remarks AVF left AC (Helen Gaspar) Extremeties Extremities Exam: Pedal Pulses Palpable, Moderate Edema, Pitting Edema, Dependent Edema Extremeties Remarks left arm AVF at AC fossa healing well, good thrill/bruit (Helen Gaspar) Neurologic Neuro Exam: Alert, Awake, Oriented, Speech Clear, Moving All Extremities ( Helen Gaspar) Psychiatric Psych Exam: Appropriate Responses (Helen Gaspar) Assessment/Plan Discussed Condition With: Patient Assessment Summary: Fluid/Volume Overload, Hypertension, End Stage Renal Disease Problem List: (1) Acute renal failure Plan: Patient with ?ESRD due to Iga nephropathy with RPGN T-Th-Sat dialysis, 5L UF yesterday his creatinine had improved yesterday preHD repeat BMP today and tomorrow we may hold HD tomorrow depending on creatinine; it was relatively low yesterday compared to his trend continue Bumex 2 po BID, he is non oliguric but has nephritic appearing urine on oral fluid restriction, he has negative fluid balance on prednisone taper, dose now 15 mg/day Permcath in place, s/p AVF placement 01/07, vascular following goal is to go to [facility] when approved. May require transitional HD program if HD is continued (2) IgA nephropathy determined by renal biopsy Plan: on prednisone management as above previously thought he had progressed to ESRD (3) RPGN (rapidly progressive glomerulonephritis) Plan: see above (4) Anemia Plan: epogen with dialysis (5) Thrombocytopenia Plan: likely due to cirrhosis of liver, hypersplenism. (6) Leukocytosis Plan: Resolved. Off antibiotics. (Helen Gaspar) Plan patient was seen and examined. He has good urine output. Will monitor for renal recovery. Dialysis if necessary (Fredo Mayer MD) Problem Qualifiers (1) Acute renal failure: Qualified Code: N17.9 - Acute renal failure, unspecified acute renal failure type Helen Gaspar Jan 16, 2017 11:10 Fredo Mayer MD Jan 17, 2017 07:53
[2017-01-16] MEDS: PANTOPRAZOLE SOD 40 MG DELAYED RELEASE TAB PO SCH (20:44)
[2017-01-16] MEDS: DOCUSATE CALCIUM 240 MG CAP PO SCH (20:44)
[2017-01-16] MEDS: ZOLPIDEM TARTRATE 5 MG TAB PO PRN (22:51)
[2017-01-17 00:45] VITALS: BP 138/69; PULSE 87; RESP 18; TEMP 97.4; O2SAT 98
[2017-01-17] MEDS: ALPRAZolam 0.25 MG TAB PO PRN ×4 (03:01→23:50)
[2017-01-17 04:00] VITALS: BP 150/76; PULSE 85; RESP 18; TEMP 97.5; O2SAT 98
[2017-01-17] MEDS: INSULIN NovoLIN REGULAR SUPPLEMENTAL SCALE SQ SCH ×5 (05:34→23:30)
[2017-01-17 07:50] VITALS: BP 166/81; PULSE 87; RESP 20; TEMP 96.5; O2SAT 97
[2017-01-17 08:12] LABS: POTASSIUM 3.4 MEQ/L (3.5-5.1)
--- NOTE | 2017-01-17 08:18 | HHI.NPPN ---
Subjective Complaints: Obesity General Problems: Edema Renal Failure: Chronic, Acute Interval History patient was seen and examined. He continues to be non oliguric. Creatinine is better. May not need dialysis today. Review of Systems General Constitutional: Fatigue Cardiovascular Cardiac: Edema Musculoskeletal MS: Pain/Stiffness MS Remarks left arm Objective Data Data 01/16/17 01/17/17 19:00 07:00 Intake Total 480 ml 480 ml Output Total 250 ml 1200 ml Balance 230 ml -720 ml Intake Oral 480 ml 480 ml Output Urine Total 250 ml 1200 ml # Voids 4 # Bowel Movements 0 Vital Signs Date Time Temp Pulse Resp B/P Pulse Ox O2 Delivery O2 Flow Rate FiO2 01/17/17 04:00 97.5 85 18 150/76 98 01/17/17 00:45 97.4 87 18 138/69 98 01/16/17 20:00 97.8 88 18 138/81 96 01/16/17 15:50 97.7 89 20 163/84 97 01/16/17 11:50 96.9 87 20 143/77 93 -: 01/15/17 0550 01/17/17 0715 Tubes & Lines: Perma-Cath Physical Exam General Appearance: Well Developed, Well Nourished, No Acute Distress, Comfortable, Obese Throat Throat Exam: Oral Mucosa [place] & Moist Pulmonary Resp Exam: Clear Bilaterally, Breath Sounds Equal, No Distress Cardiology CV Exam: Regular, Normal Sinus Rhythm Gastrointestinal/Abdomen GI Exam: Soft, Non-Tender Musculoskeletal MS Exam: Joints Intact, Normal Gait, Normal Tone Integumentary Skin Exam: Clear, Warm, Dry, Intact Extremeties Extremities Exam: Pedal Pulses Palpable, Pitting Edema, Dependent Edema Neurologic Neuro Exam: Alert, Awake, Oriented, Speech Clear, Moving All Extremities Psychiatric Psych Exam: Appropriate Responses Assessment/Plan Discussed Condition With: Patient Assessment Summary: Fluid/Volume Overload, Hypertension, End Stage Renal Disease Problem List: (1) Acute renal failure Plan: 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 Was on dialysis, it was stopped when renal function improved, he came back to the hospital with uremia, and dialysis was reinitiated. This time it was thought that he has reached ESRD, however, his urine output has improved and renal function appears to be improving. Continue diuretics. No dialysis today. Avoid nephrotoxic agents. Continue Prednisone. (2) IgA nephropathy determined by renal biopsy Plan: on prednisone management as above previously thought he had progressed to ESRD (3) RPGN (rapidly progressive glomerulonephritis) Plan: see above (4) Anemia Plan: Received Epogen with dialysis. Monitor. (5) Thrombocytopenia Plan: likely due to cirrhosis of liver, hypersplenism. (6) Leukocytosis Plan: Resolved. Off antibiotics. Problem Qualifiers (1) Acute renal failure: Qualified Code: N17.9 - Acute renal failure, unspecified acute renal failure type Fredo Mayer MD Jan 17, 2017 08:18
[2017-01-17] MEDS: BUMETANIDE 1 MG TAB PO SCH ×2 (08:54→17:49)
[2017-01-17] MEDS: SODIUM CHLORIDE 0.9% FLUSH 5 ML FLUSH FLUSH SCH ×2 (08:54→20:25)
[2017-01-17] MEDS: predniSONE 5 MG TAB PO SCH (08:54)
[2017-01-17] MEDS: SEVELAMER CARBONATE 800 MG TAB PO SCH ×3 (08:54→16:13)
[2017-01-17] MEDS: ALBUMIN HUMAN 25% 12.5 GM/50 ML BAGP IV SCH ×2 (08:55→20:15)
--- NOTE | 2017-01-17 10:22 | HHI.PR ---
Subjective Remarks Follow-up IgA nephropathy/end-stage renal disease on hemodialysis 01/10/17-patient seen and examined in dialysis center, no acute event overnight. Discussed with patient regarding his dependence on narcotics. Afebrile 01/11/17-patient seen and examined, resting in no acute event overnight. Had hemodialysis yesterday 01/12/17-patient seen and examined, stable and no complaint. Plan for hemodialysis today 01/13/17-patient seen and examined, no change and stable. 01/14/17-patient seen and examined; he had hemodialysis yesterday, stable and no complaint; states he is putting up more urine 01/15/17-patient seen and examined, he was seen in dialysis center. Stable and no complaint. Case discussed with spring encaser this morning 01/16/17-patient seen and examined, had hemodialysis yesterday, has no complaint today. 01/17/17-patient seen and examined, no complaints, afebrile. Resting Objective Vitals Vital Signs Date Time Temp Pulse Resp B/P Pulse Ox O2 Delivery O2 Flow Rate FiO2 01/17/17 07:50 96.5 87 20 166/81 97 01/17/17 04:00 97.5 85 18 150/76 98 01/17/17 00:45 97.4 87 18 138/69 98 01/16/17 20:00 97.8 88 18 138/81 96 01/16/17 15:50 97.7 89 20 163/84 97 01/16/17 11:50 96.9 87 20 143/77 93 I/O 01/16/17 01/16/17 01/16/17 01/17/17 01/17/17 01/17/17 07:00 15:00 23:00 07:00 15:00 23:00 Intake Total 480 ml 480 ml Output Total 250 ml 250 ml 500 ml 700 ml Balance -250 ml 230 ml -20 ml -700 ml Intake Oral 480 ml 480 ml Output Urine Total 250 ml 250 ml 500 ml 700 ml # Voids 4 # Bowel Movements 0 Result Diagram: 01/15/17 0550 01/17/17 0715 Objective Remarks GENERAL: NAD SKIN: Warm and dry. HEAD: Normocephalic. EYES: No scleral icterus. No injection or drainage. NECK: Supple, trachea midline. No JVD or lymphadenopathy. CARDIOVASCULAR: Regular rate and rhythm without murmurs, gallops, or rubs. RESPIRATORY: Breath sounds equal bilaterally. No accessory muscle use. GASTROINTESTINAL: Abdomen soft, non-tender, nondistended. MUSCULOSKELETAL: No cyanosis, or edema. BACK: Nontender without obvious deformity. No CVA tenderness. Procedures paracentesis permacath placement AV graft placement A/P Problem List: (1) Acute renal failure ICD Code: N17.9 Status: Acute (2) IgA nephropathy determined by renal biopsy ICD Code: N02.8 Status: Acute (3) ESRD (end stage renal disease) on dialysis ICD Code: N18.6 Status: Acute (4) Cirrhosis ICD Code: K74.60 Status: Acute Assessment and Plan 46-year-old male with IgA nephropathy Acute on chronic renal failure End-stage renal disease on HD -on prednisone taper -Cellecept was discontinued. -Currently on HD on TTS schedule- s/p perma-cath and AV graft placement. -Continue to monitor renal function Nephrology following:Dr. Mayer Alcoholic cirrhosis Acute abdominal pain Possible SBP Diagnostic paracentesis done;fluid culture negative. -s/p IV antibiotic per GI -evaluated by GI Thrombocytopeniasecondary to cirrhosis Possible portal vein thrombosis Leukocytosis Sepsis-resolved Possible spontaneous bacterial peritonitis-resolved -no anticoagulation per GI -surgery signed off- f/u as outpatient anemia of chronic disease-H&H stable stool negative for blood. s/p PRBC transfusion. on Epogen per nephrology anxiety; Xanax as needed. Prophylaxis: GI Prophylaxis Protonix DVT Prophylaxis -- SCDs -no chemical prophylaxis due to thrombocytopenia. Continue with current treatment as of 01/17/17 Discharge Planning Hopefully discharged when arrangement is made Problem Qualifiers (1) Acute renal failure: Qualified Code: N17.9 - Acute renal failure, unspecified acute renal failure type Surendra Cooper MD Jan 17, 2017 10:22
[2017-01-17 11:50] VITALS: BP 161/81; PULSE 88; RESP 20; TEMP 97.6; O2SAT 93
[2017-01-17 15:50] VITALS: BP 165/82; PULSE 81; RESP 20; TEMP 97.9; O2SAT 98
[2017-01-17 20:00] VITALS: BP 140/82; PULSE 83; RESP 18; TEMP 98.2; O2SAT 100
[2017-01-17] MEDS: PANTOPRAZOLE SOD 40 MG DELAYED RELEASE TAB PO SCH (20:14)
[2017-01-17] MEDS: DOCUSATE CALCIUM 240 MG CAP PO SCH (20:15)
[2017-01-17] MEDS: ZOLPIDEM TARTRATE 5 MG TAB PO PRN (23:50)
[2017-01-18] VITALS (7 sets, daily range): BP systolic 135–157; BP diastolic 69–93; PULSE 75–90; RESP 16–18; TEMP 96.3–98.4; O2SAT 95–99
[2017-01-18] MEDS: INSULIN NovoLIN REGULAR SUPPLEMENTAL SCALE SQ SCH ×3 (06:00→17:44)
[2017-01-18] MEDS: ALPRAZolam 0.25 MG TAB PO PRN ×3 (06:24→20:50)
[2017-01-18] MEDS: ALBUMIN HUMAN 25% 12.5 GM/50 ML BAGP IV SCH ×2 (08:15→20:00)
[2017-01-18] MEDS: predniSONE 5 MG TAB PO SCH (08:15)
[2017-01-18] MEDS: BUMETANIDE 1 MG TAB PO SCH ×2 (08:16→17:46)
[2017-01-18] MEDS: SEVELAMER CARBONATE 800 MG TAB PO SCH ×3 (08:16→17:46)
[2017-01-18] MEDS: SODIUM CHLORIDE 0.9% FLUSH 5 ML FLUSH FLUSH SCH ×2 (08:16→20:20)
[2017-01-18 09:29] LABS: BICARBONATE 29.2 MEQ/L (21.0-32.0); POTASSIUM 3.3 MEQ/L (3.5-5.1)
--- NOTE | 2017-01-18 09:33 | HHI.NPPN ---
Subjective Complaints: Obesity General Problems: Edema Renal Failure: Chronic, Acute Interval History Lying in bed. Good urine output. Dialysis was held yesterday. creatinine is slightly worse today. (Helen Gaspar) Review of Systems General Constitutional: Fatigue (Helen Gaspar) Cardiovascular Cardiac: Edema (Helen Gaspar) Musculoskeletal MS: Pain/Stiffness MS Remarks left arm (Helen Gaspar) Objective Data Data 01/17/17 01/18/17 18:59 06:59 Intake Total 480 ml 107 ml Output Total 600 ml 800 ml Balance -120 ml -693 ml Intake Oral 480 ml 100 ml IV Total 7 ml Output Urine Total 600 ml 800 ml # Voids 3 # Bowel Movements 0 1 Vital Signs Date Time Temp Pulse Resp B/P Pulse Ox O2 Delivery O2 Flow Rate FiO2 01/18/17 05:00 20 01/18/17 04:00 98.0 84 18 154/85 97 01/18/17 00:00 98.4 79 17 140/76 99 01/17/17 20:00 98.2 83 18 140/82 100 01/17/17 15:50 97.9 81 20 165/82 98 01/17/17 11:50 97.6 88 20 161/81 93 (Helen Gaspar) -: 01/15/17 0550 01/17/17 0715 Tubes & Lines: Perma-Cath (Helen Gaspar) Physical Exam General Appearance: Well Developed, Well Nourished, No Acute Distress, Comfortable, Obese (Helen Gaspar) Throat Throat Exam: Oral Mucosa [place] & Moist (Helen Gaspar) Pulmonary Resp Exam: Clear Bilaterally, Breath Sounds Equal, No Distress (Helen Gaspar) Cardiology CV Exam: Regular, Normal Sinus Rhythm (Helen Gaspar) Gastrointestinal/Abdomen GI Exam: Soft, Non-Tender, Bowel Sounds Present, Positive Bowel Movement ( Helen Gaspar) Genitourinary Remarks dark hematuria (Helen Gaspar) Musculoskeletal MS Exam: Joints Intact, Normal Gait, Normal Tone (Helen Gaspar) Integumentary Skin Exam: Clear, Warm, Dry, Intact Skin Remarks AVF left AC (Helen Gaspar) Extremeties Extremities Exam: Pedal Pulses Palpable, Pitting Edema, Dependent Edema Extremeties Remarks left arm AVF at AC fossa healing well, good thrill/bruit (Helen Gaspar) Neurologic Neuro Exam: Alert, Awake, Oriented, Speech Clear, Moving All Extremities ( Helen Gaspar) Psychiatric Psych Exam: Appropriate Responses (Helen Gaspar) Assessment/Plan Discussed Condition With: Patient Assessment Summary: Fluid/Volume Overload, Hypertension, End Stage Renal Disease Problem List: (1) Acute renal failure Plan: 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 Was on dialysis last admission, it was stopped as he eventually recovered He came back to the hospital with uremia, and dialysis was reinitiated on 12/31. This time it was thought that he had reached ESRD, however, he has been non oliguric and creatinine has again improved. Last HD 01/15; today's creatinine is slightly worse hold HD today, repeat labs tomorrow; HD if necessary Continue bumex, continue Prednisone Avoid nephrotoxic agents. Avoid IVF D/W pt (2) IgA nephropathy determined by renal biopsy Plan: on prednisone management as above previously thought he had progressed to ESRD (3) RPGN (rapidly progressive glomerulonephritis) Plan: see above (4) Anemia Plan: was on Epogen with dialysis. Monitor Hb (5) Thrombocytopenia Plan: likely due to cirrhosis of liver, hypersplenism. (6) Leukocytosis Plan: Resolved. Off antibiotics. (Helen Gaspar) Plan patient was seen and examined. Agree with above assessment and plan. Repeat labs tomorrow. (Fredo Mayer MD) Problem Qualifiers (1) Acute renal failure: Qualified Code: N17.9 - Acute renal failure, unspecified acute renal failure type Helen Gaspar Jan 18, 2017 09:32 Fredo Mayer MD Jan 18, 2017 13:30
[2017-01-18] MEDS ORDERED: POTASSIUM CHLORIDE 10 MEQ CONTROLLED RELEASE TAB PO ONE (10:45)
--- NOTE | 2017-01-18 14:51 | HHI.PR ---
Subjective Remarks Follow-up IgA nephropathy/end-stage renal disease on hemodialysis 01/10/17-patient seen and examined in dialysis center, no acute event overnight. Discussed with patient regarding his dependence on narcotics. Afebrile 01/11/17-patient seen and examined, resting in no acute event overnight. Had hemodialysis yesterday 01/12/17-patient seen and examined, stable and no complaint. Plan for hemodialysis today 01/13/17-patient seen and examined, no change and stable. 01/14/17-patient seen and examined; he had hemodialysis yesterday, stable and no complaint; states he is putting up more urine 01/15/17-patient seen and examined, he was seen in dialysis center. Stable and no complaint. Case discussed with renal case manager this morning 01/16/17-patient seen and examined, had hemodialysis yesterday, has no complaint today. 01/17/17-patient seen and examined, no complaints, afebrile. Resting 01/18/17-patient seen and examined. Stable. No dialysis since 01/15/17 Objective Vitals Vital Signs Date Time Temp Pulse Resp B/P Pulse Ox O2 Delivery O2 Flow Rate FiO2 01/18/17 12:00 96.3 82 16 157/93 97 01/18/17 10:08 95 21 01/18/17 08:00 96.6 75 16 135/72 99 01/18/17 05:00 20 01/18/17 04:00 98.0 84 18 154/85 97 01/18/17 00:00 98.4 79 17 140/76 99 01/17/17 20:00 98.2 83 18 140/82 100 01/17/17 15:50 97.9 81 20 165/82 98 I/O 01/17/17 01/17/17 01/17/17 01/18/17 01/18/17 01/18/17 07:00 15:00 23:00 07:00 15:00 23:00 Intake Total 480 ml 7 ml 100 ml Output Total 700 ml 600 ml 800 ml Balance -700 ml -120 ml 7 ml -700 ml Intake Oral 480 ml 100 ml IV Total 7 ml Output Urine Total 700 ml 600 ml 800 ml # Voids 3 # Bowel Movements 0 1 Result Diagram: 01/15/17 0550 01/18/17 0900 Objective Remarks GENERAL: NAD SKIN: Warm and dry. HEAD: Normocephalic. EYES: No scleral icterus. No injection or drainage. NECK: Supple, trachea midline. No JVD or lymphadenopathy. CARDIOVASCULAR: Regular rate and rhythm without murmurs, gallops, or rubs. RESPIRATORY: Breath sounds equal bilaterally. No accessory muscle use. GASTROINTESTINAL: Abdomen soft, non-tender, nondistended. MUSCULOSKELETAL: No cyanosis, or edema. BACK: Nontender without obvious deformity. No CVA tenderness. Procedures paracentesis permacath placement AV graft placement A/P Problem List: (1) Acute renal failure ICD Code: N17.9 Status: Acute (2) IgA nephropathy determined by renal biopsy ICD Code: N02.8 Status: Acute (3) ESRD (end stage renal disease) on dialysis ICD Code: N18.6 Status: Acute (4) Cirrhosis ICD Code: K74.60 Status: Acute Assessment and Plan 46-year-old male with IgA nephropathy Acute on chronic renal failure End-stage renal disease on HD -on prednisone taper -Cellecept was discontinued. -Currently on HD on TTS schedule- s/p perma-cath and AV graft placement. -Continue to monitor renal function. No hemodialysis since 01/15/17, continue to monitor renal function Nephrology following:Dr. Mayer Alcoholic cirrhosis Acute abdominal pain Possible SBP Diagnostic paracentesis done;fluid culture negative. -s/p IV antibiotic per GI -evaluated by GI Thrombocytopeniasecondary to cirrhosis Possible portal vein thrombosis Leukocytosis Sepsis-resolved Possible spontaneous bacterial peritonitis-resolved -no anticoagulation per GI -surgery signed off- f/u as outpatient anemia of chronic disease-H&H stable stool negative for blood. s/p PRBC transfusion. on Epogen per nephrology anxiety; Xanax as needed. Prophylaxis: GI Prophylaxis Protonix DVT Prophylaxis -- SCDs -no chemical prophylaxis due to thrombocytopenia. Continue with current treatment as of 01/17/17 Discharge Planning Hopefully discharged when arrangement is made Problem Qualifiers (1) Acute renal failure: Qualified Code: N17.9 - Acute renal failure, unspecified acute renal failure type Surendra Cooper MD Jan 18, 2017 14:51
[2017-01-18] MEDS: PANTOPRAZOLE SOD 40 MG DELAYED RELEASE TAB PO SCH (20:10)
[2017-01-18] MEDS: DOCUSATE CALCIUM 240 MG CAP PO SCH (20:10)
[2017-01-18] MEDS: ZOLPIDEM TARTRATE 5 MG TAB PO PRN (22:54)
[2017-01-19] VITALS: BP 134/84; PULSE 80; RESP 18; TEMP 97.1; O2SAT 99
[2017-01-19] MEDS: ALPRAZolam 0.25 MG TAB PO PRN ×4 (03:33→23:14)
[2017-01-19 04:00] VITALS: BP 149/74; PULSE 83; RESP 17; TEMP 96.1; O2SAT 97
[2017-01-19] MEDS: INSULIN NovoLIN REGULAR SUPPLEMENTAL SCALE SQ SCH ×2 (06:00→18:24)
[2017-01-19] MEDS: ALBUMIN HUMAN 25% 12.5 GM/50 ML BAGP IV SCH ×2 (08:35→21:20)
[2017-01-19] MEDS: SODIUM CHLORIDE 0.9% FLUSH 5 ML FLUSH FLUSH SCH ×2 (08:40→21:21)
[2017-01-19 08:55] VITALS: BP 129/84; PULSE 83; RESP 16; TEMP 97.3; O2SAT 97
[2017-01-19] MEDS: predniSONE 5 MG TAB PO SCH (09:44)
[2017-01-19] MEDS: BUMETANIDE 1 MG TAB PO SCH ×2 (09:44→18:25)
[2017-01-19] MEDS: SEVELAMER CARBONATE 800 MG TAB PO SCH ×3 (09:44→18:24)
[2017-01-19 10:44] LABS: BICARBONATE 28.8 MEQ/L (21.0-32.0); POTASSIUM 3.6 MEQ/L (3.5-5.1)
[2017-01-19 12:00] VITALS: BP 132/84; PULSE 87; RESP 16; TEMP 97.1; O2SAT 98
--- NOTE | 2017-01-19 12:06 | HHI.PR ---
Subjective Remarks Follow-up IgA nephropathy/end-stage renal disease on hemodialysis 01/10/17-patient seen and examined in dialysis center, no acute event overnight. Discussed with patient regarding his dependence on narcotics. Afebrile 01/11/17-patient seen and examined, resting in no acute event overnight. Had hemodialysis yesterday 01/12/17-patient seen and examined, stable and no complaint. Plan for hemodialysis today 01/13/17-patient seen and examined, no change and stable. 01/14/17-patient seen and examined; he had hemodialysis yesterday, stable and no complaint; states he is putting up more urine 01/15/17-patient seen and examined, he was seen in dialysis center. Stable and no complaint. Case discussed with director of casework services this morning 01/16/17-patient seen and examined, had hemodialysis yesterday, has no complaint today. 01/17/17-patient seen and examined, no complaints, afebrile. Resting 01/18/17-patient seen and examined. Stable. No dialysis since 01/15/17 01/19/17-patient seen and examined-Sleeping and no complaint. Objective Vitals Vital Signs Date Time Temp Pulse Resp B/P Pulse Ox O2 Delivery O2 Flow Rate FiO2 01/19/17 08:55 97.3 83 16 129/84 97 01/19/17 04:39 20 01/19/17 04:00 96.1 83 17 149/74 97 01/19/17 00:00 97.1 80 18 134/84 99 01/18/17 20:00 96.9 84 18 138/69 98 01/18/17 16:00 96.6 90 16 142/84 98 I/O 01/18/17 01/18/17 01/18/17 01/19/17 01/19/17 01/19/17 07:00 15:00 23:00 07:00 15:00 23:00 Intake Total 100 ml 480 ml 950 ml Output Total 800 ml 900 ml 400 ml 200 ml Balance -700 ml -420 ml -400 ml 750 ml Intake Oral 100 ml 480 ml 100 ml IV Total 850 ml Output Urine Total 800 ml 900 ml 400 ml 200 ml # Voids 3 # Bowel Movements 1 1 1 Result Diagram: 01/15/17 0550 01/19/17 0949 Objective Remarks GENERAL: NAD SKIN: Warm and dry. HEAD: Normocephalic. EYES: No scleral icterus. No injection or drainage. NECK: Supple, trachea midline. No JVD or lymphadenopathy. CARDIOVASCULAR: Regular rate and rhythm without murmurs, gallops, or rubs. RESPIRATORY: Breath sounds equal bilaterally. No accessory muscle use. GASTROINTESTINAL: Abdomen soft, non-tender, nondistended. MUSCULOSKELETAL: No cyanosis, or edema. BACK: Nontender without obvious deformity. No CVA tenderness. Procedures paracentesis permacath placement AV graft placement A/P Problem List: (1) Acute renal failure ICD Code: N17.9 Status: Acute (2) IgA nephropathy determined by renal biopsy ICD Code: N02.8 Status: Acute (3) ESRD (end stage renal disease) on dialysis ICD Code: N18.6 Status: Acute (4) Cirrhosis ICD Code: K74.60 Status: Acute Assessment and Plan 46-year-old male with IgA nephropathy Acute on chronic renal failure End-stage renal disease on HD -on prednisone taper -Cellecept was discontinued. -Currently on HD on TTS schedule- s/p perma-cath and AV graft placement. -Continue to monitor renal function. No hemodialysis since 01/15/17, continue to monitor renal function Nephrology following:Dr. Mayer Alcoholic cirrhosis Acute abdominal pain Possible SBP Diagnostic paracentesis done;fluid culture negative. -s/p IV antibiotic per GI -evaluated by GI Thrombocytopeniasecondary to cirrhosis Possible portal vein thrombosis Leukocytosis Sepsis-resolved Possible spontaneous bacterial peritonitis-resolved -no anticoagulation per GI -surgery signed off- f/u as outpatient anemia of chronic disease-H&H stable stool negative for blood. s/p PRBC transfusion. on Epogen per nephrology anxiety; Xanax as needed. Prophylaxis: GI Prophylaxis Protonix DVT Prophylaxis -- SCDs -no chemical prophylaxis due to thrombocytopenia. Continue with current treatment as of 01/19/17 Discharge Planning Hopefully discharged when arrangement is made Problem Qualifiers (1) Acute renal failure: Qualified Code: N17.9 - Acute renal failure, unspecified acute renal failure type Surendra Cooper MD Jan 19, 2017 12:06
--- NOTE | 2017-01-19 13:23 | HHI.NPPN ---
Subjective Complaints: Obesity General Problems: Edema Renal Failure: Chronic, Acute Review of Systems General Constitutional: Fatigue Cardiovascular Cardiac: Edema Musculoskeletal MS: Pain/Stiffness MS Remarks left arm Objective Data Data 01/18/17 01/19/17 19:00 07:00 Intake Total 480 ml 950 ml Output Total 900 ml 600 ml Balance -420 ml 350 ml Intake Oral 480 ml 100 ml IV Total 850 ml Output Urine Total 900 ml 600 ml # Bowel Movements 1 1 Vital Signs Date Time Temp Pulse Resp B/P Pulse Ox O2 Delivery O2 Flow Rate FiO2 01/19/17 08:55 97.3 83 16 129/84 97 01/19/17 04:39 20 01/19/17 04:00 96.1 83 17 149/74 97 01/19/17 00:00 97.1 80 18 134/84 99 01/18/17 20:00 96.9 84 18 138/69 98 01/18/17 16:00 96.6 90 16 142/84 98 -: 01/15/17 0550 01/19/17 0949 Tubes & Lines: Perma-Cath Physical Exam General Appearance: Well Developed, Well Nourished, No Acute Distress, Comfortable, Obese Throat Throat Exam: Oral Mucosa [place] & Moist Pulmonary Resp Exam: Clear Bilaterally, Breath Sounds Equal, No Distress Cardiology CV Exam: Regular, Normal Sinus Rhythm Gastrointestinal/Abdomen GI Exam: Soft, Non-Tender, Bowel Sounds Present, Positive Bowel Movement Musculoskeletal MS Exam: Joints Intact, Normal Gait, Normal Tone Integumentary Skin Exam: Clear, Warm, Dry, Intact Extremeties Extremities Exam: Pedal Pulses Palpable, Pitting Edema, Dependent Edema Neurologic Neuro Exam: Alert, Awake, Oriented, Speech Clear, Moving All Extremities Psychiatric Psych Exam: Appropriate Responses Assessment/Plan Discussed Condition With: Patient Assessment Summary: Fluid/Volume Overload, Hypertension, End Stage Renal Disease Problem List: (1) Acute renal failure Plan: 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 Was on dialysis last admission, it was stopped as he eventually recovered He came back to the hospital with uremia, and dialysis was reinitiated on 12/31. This time it was thought that he had reached ESRD, however, he has been non oliguric and creatinine has again improved. Last HD 01/15; today's creatinine is slightly better crescentic GN IgA nephropathy has been treated with combination of Prednisone plus Cytoxan He did responded to Prednisone maintain on it for 6 months consider addition of low dose Cytoxan then Azathioprine ( RAVEN Schwab 2002, 13:142-148) A Second study used IV Cyclophosphamide monthly x 6 month (ESSENCE Toney Nephrol Dial Transplant 2003;18:1321-9) [facility] Gio [facility] (2) IgA nephropathy determined by renal biopsy Plan: on prednisone management as above previously thought he had progressed to ESRD (3) RPGN (rapidly progressive glomerulonephritis) Plan: see above (4) Anemia Plan: was on Epogen with dialysis. Monitor Hb (5) Thrombocytopenia Plan: likely due to cirrhosis of liver, hypersplenism. (6) Leukocytosis Plan: Resolved. Off antibiotics. Plan patient was seen and examined. Agree with above assessment and plan. Repeat labs tomorrow. Problem Qualifiers (1) Acute renal failure: Qualified Code: N17.9 - Acute renal failure, unspecified acute renal failure type Yas Welsh MD Jan 19, 2017 13:23
[2017-01-19 16:00] VITALS: BP 155/95; PULSE 81; RESP 16; TEMP 96.4; O2SAT 95
[2017-01-19 20:00] VITALS: BP 180/94; PULSE 88; RESP 18; TEMP 96.5; O2SAT 98
[2017-01-19] MEDS: PANTOPRAZOLE SOD 40 MG DELAYED RELEASE TAB PO SCH (21:20)
[2017-01-19] MEDS: DOCUSATE CALCIUM 240 MG CAP PO SCH (21:21)
[2017-01-19] MEDS: ZOLPIDEM TARTRATE 5 MG TAB PO PRN (23:18)
[2017-01-20] VITALS (7 sets, daily range): BP systolic 130–154; BP diastolic 80–95; PULSE 80–86; RESP 17–20; TEMP 95.8–98.8; O2SAT 94–100
[2017-01-20] MEDS: INSULIN NovoLIN REGULAR SUPPLEMENTAL SCALE SQ SCH ×2 (06:00→17:39)
[2017-01-20] MEDS: BUMETANIDE 1 MG TAB PO SCH ×2 (08:13→17:40)
[2017-01-20] MEDS: ALBUMIN HUMAN 25% 12.5 GM/50 ML BAGP IV SCH ×2 (08:13→20:01)
[2017-01-20] MEDS: SEVELAMER CARBONATE 800 MG TAB PO SCH ×3 (08:13→17:40)
[2017-01-20] MEDS: predniSONE 5 MG TAB PO SCH (08:13)
[2017-01-20] MEDS: SODIUM CHLORIDE 0.9% FLUSH 5 ML FLUSH FLUSH SCH ×2 (08:15→20:02)
--- NOTE | 2017-01-20 08:38 | HHI.PR ---
Subjective Remarks Follow-up IgA nephropathy/end-stage renal disease on hemodialysis 01/10/17-patient seen and examined in dialysis center, no acute event overnight. Discussed with patient regarding his dependence on narcotics. Afebrile 01/11/17-patient seen and examined, resting in no acute event overnight. Had hemodialysis yesterday 01/12/17-patient seen and examined, stable and no complaint. Plan for hemodialysis today 01/13/17-patient seen and examined, no change and stable. 01/14/17-patient seen and examined; he had hemodialysis yesterday, stable and no complaint; states he is putting up more urine 01/15/17-patient seen and examined, he was seen in dialysis center. Stable and no complaint. Case discussed with case liner this morning 01/16/17-patient seen and examined, had hemodialysis yesterday, has no complaint today. 01/17/17-patient seen and examined, no complaints, afebrile. Resting 01/18/17-patient seen and examined. Stable. No dialysis since 01/15/17 01/19/17-patient seen and examined-Sleeping and no complaint. 01/20/17-patient seen and examined, resting and has not received hemodialysis since 01/15/17. No acute event overnight. Objective Vitals Vital Signs Date Time Temp Pulse Resp B/P Pulse Ox O2 Delivery O2 Flow Rate FiO2 01/20/17 04:00 98.1 86 18 133/82 98 01/20/17 00:30 142/80 01/20/17 00:00 98.8 86 17 100 01/19/17 20:00 96.5 88 18 180/94 98 01/19/17 16:00 96.4 81 16 155/95 95 01/19/17 12:00 97.1 87 16 132/84 98 01/19/17 08:55 97.3 83 16 129/84 97 I/O 01/19/17 01/19/17 01/19/17 01/20/17 01/20/17 01/20/17 07:00 15:00 23:00 07:00 15:00 23:00 Intake Total 950 ml 300 ml 340 ml 0 ml Output Total 200 ml 600 ml 1300 ml Balance 750 ml -300 ml -960 ml 0 ml Intake Oral 100 ml 300 ml 240 ml 0 ml IV Total 850 ml 100 ml Output Urine Total 200 ml 600 ml 1300 ml # Voids 0 # Bowel Movements 0 0 Result Diagram: 01/19/17 0949 Objective Remarks GENERAL: NAD SKIN: Warm and dry. HEAD: Normocephalic. EYES: No scleral icterus. No injection or drainage. NECK: Supple, trachea midline. No JVD or lymphadenopathy. CARDIOVASCULAR: Regular rate and rhythm without murmurs, gallops, or rubs. RESPIRATORY: Breath sounds equal bilaterally. No accessory muscle use. GASTROINTESTINAL: Abdomen soft, non-tender, nondistended. MUSCULOSKELETAL: No cyanosis, or edema. BACK: Nontender without obvious deformity. No CVA tenderness. Procedures paracentesis permacath placement AV graft placement A/P Problem List: (1) Acute renal failure ICD Code: N17.9 Status: Acute (2) IgA nephropathy determined by renal biopsy ICD Code: N02.8 Status: Acute (3) ESRD (end stage renal disease) on dialysis ICD Code: N18.6 Status: Acute (4) Cirrhosis ICD Code: K74.60 Status: Acute Assessment and Plan 46-year-old male with IgA nephropathy Acute on chronic renal failure End-stage renal disease on HD -on prednisone taper -Cellecept was discontinued. -Currently on HD on TTS schedule- s/p perma-cath and AV graft placement. -Continue to monitor renal function. No hemodialysis since 01/15/17, continue to monitor renal function -Continue treatment with albumin Nephrology following:Dr. Mayer Alcoholic cirrhosis Acute abdominal pain Possible SBP Diagnostic paracentesis done;fluid culture negative. -s/p IV antibiotic per GI -evaluated by GI Thrombocytopeniasecondary to cirrhosis Possible portal vein thrombosis Leukocytosis Sepsis-resolved Possible spontaneous bacterial peritonitis-resolved -no anticoagulation per GI -surgery signed off- f/u as outpatient anemia of chronic disease-H&H stable stool negative for blood. s/p PRBC transfusion. on Epogen per nephrology anxiety; Xanax as needed. Prophylaxis: GI Prophylaxis Protonix DVT Prophylaxis -- SCDs -no chemical prophylaxis due to thrombocytopenia. Continue with current treatment as of 01/20/17 Discharge Planning Hopefully discharged when arrangement is made Problem Qualifiers (1) Acute renal failure: Qualified Code: N17.9 - Acute renal failure, unspecified acute renal failure type Surendra Cooper MD Jan 20, 2017 08:38
--- NOTE | 2017-01-20 13:44 | HHI.NPPN ---
Subjective Complaints: Obesity General Problems: Edema Renal Failure: Chronic, Acute Review of Systems General Constitutional: Fatigue Cardiovascular Cardiac: Edema Musculoskeletal MS: Pain/Stiffness MS Remarks left arm Objective Data Data 01/19/17 01/20/17 19:00 07:00 Intake Total 300 ml 340 ml Output Total 900 ml 1000 ml Balance -600 ml -660 ml Intake Oral 300 ml 240 ml IV Total 100 ml Output Urine Total 900 ml 1000 ml # Voids 0 # Bowel Movements 0 Vital Signs Date Time Temp Pulse Resp B/P Pulse Ox O2 Delivery O2 Flow Rate FiO2 01/20/17 11:20 96.9 80 20 141/89 97 01/20/17 07:50 98.5 85 20 130/80 94 01/20/17 04:00 98.1 86 18 133/82 98 01/20/17 00:30 142/80 01/20/17 00:00 98.8 86 17 100 01/19/17 20:00 96.5 88 18 180/94 98 01/19/17 16:00 96.4 81 16 155/95 95 -: 01/19/17 0949 Tubes & Lines: Perma-Cath Physical Exam General Appearance: Well Developed, Well Nourished, No Acute Distress, Comfortable, Obese Throat Throat Exam: Oral Mucosa [place] & Moist Pulmonary Resp Exam: Clear Bilaterally, Breath Sounds Equal, No Distress Cardiology CV Exam: Regular, Normal Sinus Rhythm Gastrointestinal/Abdomen GI Exam: Soft, Non-Tender, Bowel Sounds Present, Positive Bowel Movement Musculoskeletal MS Exam: Joints Intact, Normal Gait, Normal Tone Integumentary Skin Exam: Clear, Warm, Dry, Intact Extremeties Extremities Exam: Pedal Pulses Palpable, Pitting Edema, Dependent Edema Neurologic Neuro Exam: Alert, Awake, Oriented, Speech Clear, Moving All Extremities Psychiatric Psych Exam: Appropriate Responses Assessment/Plan Discussed Condition With: Patient Assessment Summary: Fluid/Volume Overload, Hypertension, End Stage Renal Disease Problem List: (1) Acute renal failure Plan: 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 Was on dialysis last admission, it was stopped as he eventually recovered He came back to the hospital with uremia, and dialysis was reinitiated on 12/31. This time it was thought that he had reached ESRD, however, he has been non oliguric and creatinine has again improved. Last HD 01/15; today's creatinine is slightly better For Dr. Hoskote to follow up on crescentic GN IgA nephropathy has been treated with combination of Prednisone plus Cytoxan He did responded to Prednisone maintain on it for 6 months consider addition of low dose Cytoxan then Azathioprine ( RAVEN Schwab 2002, 13:142-148) A Second study used IV Cyclophosphamide monthly x 6 month (ESSENCE Toney Nephrol Dial Transplant 2003;18:1321-9) recent talk by Professor Gio Dave, [facility] continue supportive care further recommendations per Dr. Mayer (2) IgA nephropathy determined by renal biopsy Plan: on prednisone management as above previously thought he had progressed to ESRD (3) RPGN (rapidly progressive glomerulonephritis) Plan: see above (4) Anemia Plan: was on Epogen with dialysis. Monitor Hb (5) Thrombocytopenia Plan: likely due to cirrhosis of liver, hypersplenism. (6) Leukocytosis Plan: Resolved. Off antibiotics. Plan patient was seen and examined. Agree with above assessment and plan. Repeat labs tomorrow. Problem Qualifiers (1) Acute renal failure: Qualified Code: N17.9 - Acute renal failure, unspecified acute renal failure type Yas Welsh MD Jan 20, 2017 13:44
[2017-01-20] MEDS: ALPRAZolam 0.25 MG TAB PO PRN ×2 (14:55→21:07)
[2017-01-20] MEDS: PANTOPRAZOLE SOD 40 MG DELAYED RELEASE TAB PO SCH (20:01)
[2017-01-20] MEDS: DOCUSATE CALCIUM 240 MG CAP PO SCH (20:01)
[2017-01-20] MEDS: ZOLPIDEM TARTRATE 5 MG TAB PO PRN (23:12)
[2017-01-21] VITALS: BP 156/90; PULSE 78; RESP 18; TEMP 97; O2SAT 99
[2017-01-21] MEDS: ALPRAZolam 0.25 MG TAB PO PRN ×2 (03:22→11:47)
[2017-01-21 04:00] VITALS: BP 107/59; PULSE 107; RESP 19; TEMP 96.3; O2SAT 97
[2017-01-21] MEDS: INSULIN NovoLIN REGULAR SUPPLEMENTAL SCALE SQ SCH ×2 (06:00→18:00)
[2017-01-21 06:34] LABS: BICARBONATE 23.9 MEQ/L (21.0-32.0); POTASSIUM 3.3 MEQ/L (3.5-5.1)
--- NOTE | 2017-01-21 07:29 | HHI.PR ---
Subjective Remarks Follow-up IgA nephropathy/end-stage renal disease on hemodialysis 01/10/17-patient seen and examined in dialysis center, no acute event overnight. Discussed with patient regarding his dependence on narcotics. Afebrile 01/11/17-patient seen and examined, resting in no acute event overnight. Had hemodialysis yesterday 01/12/17-patient seen and examined, stable and no complaint. Plan for hemodialysis today 01/13/17-patient seen and examined, no change and stable. 01/14/17-patient seen and examined; he had hemodialysis yesterday, stable and no complaint; states he is putting up more urine 01/15/17-patient seen and examined, he was seen in dialysis center. Stable and no complaint. Case discussed with medical case manager this morning 01/16/17-patient seen and examined, had hemodialysis yesterday, has no complaint today. 01/17/17-patient seen and examined, no complaints, afebrile. Resting 01/18/17-patient seen and examined. Stable. No dialysis since 01/15/17 01/19/17-patient seen and examined-Sleeping and no complaint. 01/20/17-patient seen and examined, resting and has not received hemodialysis since 01/15/17. No acute event overnight. 01/21/17-patient seen and examined, no acute event overnight and stable. Afebrile. Objective Vitals Vital Signs Date Time Temp Pulse Resp B/P Pulse Ox O2 Delivery O2 Flow Rate FiO2 01/21/17 04:00 96.3 107 19 107/59 97 01/21/17 00:00 97.0 78 18 156/90 99 01/20/17 20:00 96.5 82 17 154/93 98 01/20/17 15:00 95.8 83 20 154/95 100 01/20/17 11:20 96.9 80 20 141/89 97 01/20/17 07:50 98.5 85 20 130/80 94 I/O 01/20/17 01/20/17 01/20/17 01/21/17 01/21/17 01/21/17 06:59 14:59 22:59 06:59 14:59 22:59 Intake Total 0 ml 510 ml 340 ml 0 ml Output Total 1175 ml 1600 ml 800 ml Balance 0 ml -665 ml -1260 ml -800 ml Intake Oral 0 ml 435 ml 240 ml 0 ml IV Total 75 ml 100 ml Output Urine Total 1175 ml 1600 ml 800 ml # Voids 0 # Bowel Movements 0 0 0 0 Result Diagram: 01/21/1705 Objective Remarks GENERAL: NAD SKIN: Warm and dry. HEAD: Normocephalic. EYES: No scleral icterus. No injection or drainage. NECK: Supple, trachea midline. No JVD or lymphadenopathy. CARDIOVASCULAR: Regular rate and rhythm without murmurs, gallops, or rubs. RESPIRATORY: Breath sounds equal bilaterally. No accessory muscle use. GASTROINTESTINAL: Abdomen soft, non-tender, nondistended. MUSCULOSKELETAL: No cyanosis, or edema. BACK: Nontender without obvious deformity. No CVA tenderness. Procedures paracentesis permacath placement AV graft placement A/P Problem List: (1) Acute renal failure ICD Code: N17.9 Status: Acute (2) IgA nephropathy determined by renal biopsy ICD Code: N02.8 Status: Acute (3) ESRD (end stage renal disease) on dialysis ICD Code: N18.6 Status: Acute (4) Cirrhosis ICD Code: K74.60 Status: Acute Assessment and Plan 46-year-old male with IgA nephropathy Acute on chronic renal failure End-stage renal disease on HD -on prednisone taper -Cellecept was discontinued. -Currently on HD on TTS schedule- s/p perma-cath and AV graft placement. -Continue to monitor renal function. No hemodialysis since 01/15/17, continue to monitor renal function -Continue treatment with albumin Nephrology following:Dr. Mayer Alcoholic cirrhosis Acute abdominal pain Possible SBP Diagnostic paracentesis done;fluid culture negative. -s/p IV antibiotic per GI -evaluated by GI Thrombocytopeniasecondary to cirrhosis Possible portal vein thrombosis Leukocytosis Sepsis-resolved Possible spontaneous bacterial peritonitis-resolved -no anticoagulation per GI -surgery signed off- f/u as outpatient anemia of chronic disease-H&H stable stool negative for blood. s/p PRBC transfusion. on Epogen per nephrology anxiety; Xanax as needed. Prophylaxis: GI Prophylaxis Protonix DVT Prophylaxis -- SCDs -no chemical prophylaxis due to thrombocytopenia. Continue with current treatment as of 01/21/17 Discharge Planning Hopefully discharged when arrangement is made Problem Qualifiers (1) Acute renal failure: Qualified Code: N17.9 - Acute renal failure, unspecified acute renal failure type Surendra Cooper MD Jan 21, 2017 07:29
[2017-01-21 08:00] VITALS: BP 128/74; PULSE 78; RESP 16; TEMP 96.5; O2SAT 97
[2017-01-21] MEDS: ALBUMIN HUMAN 25% 12.5 GM/50 ML BAGP IV SCH (08:17)
[2017-01-21] MEDS: predniSONE 5 MG TAB PO SCH (08:17)
[2017-01-21] MEDS: BUMETANIDE 1 MG TAB PO SCH (08:17)
[2017-01-21] MEDS: SEVELAMER CARBONATE 800 MG TAB PO SCH ×3 (08:17→17:00)
[2017-01-21] MEDS: SODIUM CHLORIDE 0.9% FLUSH 5 ML FLUSH FLUSH SCH (08:18)
--- NOTE | 2017-01-21 11:24 | HHI.NPPN ---
Subjective Complaints: Obesity General Problems: Edema Renal Failure: Chronic, Acute Interval History renal function is better. Urine output is excellent. (Helen Gaspar) Review of Systems General Constitutional: Fatigue (Helen Gaspar) Cardiovascular Cardiac: Edema (Helen Gaspar) Musculoskeletal MS: Pain/Stiffness MS Remarks left arm (Helen Gaspar) Objective Data Data 01/20/17 01/21/17 19:00 07:00 Intake Total 510 ml 340 ml Output Total 1175 ml 2400 ml Balance -665 ml -2060 ml Intake Oral 435 ml 240 ml IV Total 75 ml 100 ml Output Urine Total 1175 ml 2400 ml # Bowel Movements 0 0 Vital Signs Date Time Temp Pulse Resp B/P Pulse Ox O2 Delivery O2 Flow Rate FiO2 01/21/17 08:00 96.5 78 16 128/74 97 01/21/17 04:00 96.3 107 19 107/59 97 01/21/17 00:00 97.0 78 18 156/90 99 01/20/17 20:00 96.5 82 17 154/93 98 01/20/17 15:00 95.8 83 20 154/95 100 (Helen Gaspar) -: 01/21/17 0605 Tubes & Lines: Perma-Cath (Helen Gaspar) Physical Exam General Appearance: Well Developed, Well Nourished, No Acute Distress, Comfortable, Obese (Helen Gaspar) Throat Throat Exam: Oral Mucosa [place] & Moist (Helen Gaspar) Pulmonary Resp Exam: Clear Bilaterally, Breath Sounds Equal, No Distress (Helen Gaspar) Cardiology CV Exam: Regular, Normal Sinus Rhythm (Helen Gaspar) Gastrointestinal/Abdomen GI Exam: Soft, Non-Tender, Bowel Sounds Present, Positive Bowel Movement ( Helen Gaspar) Genitourinary Remarks dark hematuria (Helen Gaspar) Musculoskeletal MS Exam: Joints Intact, Normal Gait, Normal Tone (Helen Gaspar) Integumentary Skin Exam: Clear, Warm, Dry, Intact Skin Remarks AVF left AC (Helen Gaspar) Extremeties Extremities Exam: Pedal Pulses Palpable, Pitting Edema, Dependent Edema Extremeties Remarks left arm AVF at AC fossa healing well, good thrill/bruit (Helen Gaspar) Neurologic Neuro Exam: Alert, Awake, Oriented, Speech Clear, Moving All Extremities ( Helen Gaspar) Psychiatric Psych Exam: Appropriate Responses (Helen Gaspar) Assessment/Plan Discussed Condition With: Patient Assessment Summary: Fluid/Volume Overload, Hypertension, End Stage Renal Disease Problem List: (1) Acute renal failure Plan: 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 this admission we restarted dialysis due to uremia and fluid overload on 12/31. Last HD 01/15 his renal function is improving off dialysis at this time we will remove permcath today, continue prednisone (told to take 20 mg daily at home) resume cellcept 500 mg po BID we will see him in 2 weeks in the clinic cleared for discharge today (2) IgA nephropathy determined by renal biopsy Plan: on prednisone, cellcept resumed management as above previously thought he had progressed to ESRD (3) RPGN (rapidly progressive glomerulonephritis) Plan: see above (4) Anemia Plan: was on Epogen with dialysis. Monitor Hb (5) Thrombocytopenia Plan: likely due to cirrhosis of liver, hypersplenism. (6) Leukocytosis Plan: Resolved. Off antibiotics. (Helen Gaspar) Problem List: (1) Acute renal failure Plan: 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 this admission we restarted dialysis due to uremia and fluid overload on 12/31. Last HD 01/15 his renal function is improving off dialysis at this time we will remove permcath today, continue prednisone (told to take 20 mg daily at home) resume cellcept 500 mg po BID we will see him in 2 weeks in the clinic cleared for discharge today (2) IgA nephropathy determined by renal biopsy Plan: on prednisone, cellcept resumed management as above previously thought he had progressed to ESRD (3) RPGN (rapidly progressive glomerulonephritis) Plan: see above (4) Anemia Plan: was on Epogen with dialysis. Monitor Hb (5) Thrombocytopenia Plan: likely due to cirrhosis of liver, hypersplenism. (6) Leukocytosis Plan: Resolved. Off antibiotics. Plan patient was seen and examined. When he presented initially, he promptly received bolus steroids followed by renal biopsy. 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 He was then placed on CellCept. Treatment of this particular condition is controversial, but there was one study which demonstrated superiority of CellCept over Cytoxan. He was placed on dialysis, but renal function improved and he was taken off of dialysis. He had been discharged on prednisone and CellCept. Patient was readmitted due to fluid overload, renal function had worsened, probably due to rapid taper of steroids. After readmission, dose of Prednisone was increased, CellCept was continued. He developed signs of biliary sepsis, and since renal function had not improved, CellCept was stopped. HD was reinitiated. Surprisingly, his renal function continued to improve and now he is off of dialysis one more time. He will be discharged on Prednisone and he will be asked to restart CellCept. F/ U in our office in 2 weeks. (Fredo Mayer MD) Problem Qualifiers (1) Acute renal failure: Qualified Code: N17.9 - Acute renal failure, unspecified acute renal failure type Helen Gaspar Jan 21, 2017 11:24 Fredo Mayer MD Jan 22, 2017 14:27
[2017-01-21 12:00] VITALS: BP 140/80; PULSE 80; RESP 18; TEMP 96.9; O2SAT 97
[2017-01-21] MEDS ORDERED: BUME1TAB PO (13:39)
[2017-01-21] MEDS ORDERED: MYCO250 PO (13:39)
[2017-01-21] MEDS ORDERED: PRED5TAB PO (13:39)
[2017-01-21] MEDS ORDERED: SEVEL800 PO (13:39)
--- NOTE | 2017-01-21 13:40 | HHI.DS ---
Discharge Summary Admission Date Dec 25, 2016 at 23:10 Discharge Date: Jan 21, 2017 Admitting Diagnosis Acute Renal Failure, Symptomatic Volume Overload (1) Acute renal failure ICD Code: N17.9 (2) IgA nephropathy determined by renal biopsy ICD Code: N02.8 (3) ESRD (end stage renal disease) on dialysis ICD Code: N18.6 (4) Cirrhosis ICD Code: K74.60 Procedures paracentesis permacath placement AV graft placement Brief History - From Admission patient is a 46 y/o male, known to me from previous admission who was diagnosed with glomerulonephritis last admission, presentee back to ER with generalized weakness and worsening swelling of the legs. he says that he had his last dialysis two weeks ago after his renal function remained stable. he says that over the past two week he could barely void. he says that he's noticed that the swelling of his legs has been getting worse. he's complaining of poor oral intake and generalized weakness.he denies any chest pain, nausea or vomiting but complaining of abdominal ' pressure'. he was being followed up by . CBC/BMP: 01/21/17 0605 Significant Findings Laboratory Tests Test 01/19/17 01/21/17 09:49 06:05 Blood Urea Nitrogen 44 MG/DL (7-18) 47 MG/DL (7-18) Creatinine 2.16 MG/DL 1.94 MG/DL (0.60-1.30) (0.60-1.30) Estimat Glomerular Filtration 33 ML/MIN (>89) 37 ML/MIN (>89) Rate Calcium Level 8.0 MG/DL 8.0 MG/DL (8.5-10.1) (8.5-10.1) Albumin 2.4 GM/DL (3.4-5.0) Potassium Level 3.3 MEQ/L (3.5-5.1) Chloride Level 109 MEQ/L (98-107) Imaging Last Impressions Catheter Placement X-Ray 12/31/16 0985 Signed Impressions: Service Date/Time: Saturday, December 31, 2016 11:21 - CONCLUSION: Uncomplicated PermaCath placement as above. Bakari Amado MD Abdomen/Pelvis CT 12/28/16 0000 Signed Impressions: Service Date/Time: Wednesday, December 28, 2016 03:28 - CONCLUSION: Liver cirrhosis and stigmata of portal hypertension. Abundant ascites. Small bilateral pleural effusions and left base pneumonia. Derek Krause MD Abdomen Ultrasound 12/28/16 0000 Signed Impressions: Service Date/Time: Wednesday, December 28, 2016 06:43 - CONCLUSION: 1. Flow within the main portal vein is not confirmed with certainty which raises the possibility of portal vein thrombus. CT or MRI of the abdomen with contrast may be helpful for father evaluation of this finding. 2. Small heterogeneous nodular liver consistent with cirrhosis. 3. Ascites. 4. Splenomegaly. 5. Distended thick walled gallbladder with pericholecystic fluid and possible stone or polyp in the neck. Clinical correlation is recommended to rule out acute cholecystitis. 6. Poor visualization of the pancreas and right kidney due to shadowing bowel gas. Veto Cortez MD Chest X-Ray [id number]/25/[id number] Signed Impressions: Service Date/Time: Sunday, December 25, 2016 21:45 - CONCLUSION: Cardiomegaly without evidence of acute cardiopulmonary process. Bakari Amado MD PE at Discharge GENERAL: NAD SKIN: Warm and dry. HEAD: Normocephalic. EYES: No scleral icterus. No injection or drainage. NECK: Supple, trachea midline. No JVD or lymphadenopathy. CARDIOVASCULAR: Regular rate and rhythm without murmurs, gallops, or rubs. RESPIRATORY: Breath sounds equal bilaterally. No accessory muscle use. GASTROINTESTINAL: Abdomen soft, non-tender, nondistended. MUSCULOSKELETAL: No cyanosis, or edema. BACK: Nontender without obvious deformity. No CVA tenderness. Hospital Course IgA nephropathy Acute on chronic renal failure End-stage renal disease on HD -on prednisone taper -Cellecept was discontinued. -Currently on HD on TTS schedule- s/p perma-cath and AV graft placement. -Continue to monitor renal function. No hemodialysis since 01/15/17, continue to monitor renal function -Continue treatment with albumin Nephrology following:Dr. Mayer Alcoholic cirrhosis Acute abdominal pain Possible SBP Diagnostic paracentesis done;fluid culture negative. -s/p IV antibiotic per GI -evaluated by GI Thrombocytopeniasecondary to cirrhosis Possible portal vein thrombosis Leukocytosis Sepsis-resolved Possible spontaneous bacterial peritonitis-resolved -no anticoagulation per GI -surgery signed off- f/u as outpatient anemia of chronic disease-H&H stable stool negative for blood. s/p PRBC transfusion. on Epogen per nephrology anxiety; Xanax as needed. Prophylaxis: GI Prophylaxis Protonix DVT Prophylaxis -- SCDs -no chemical prophylaxis due to thrombocytopenia. Pt Condition on Discharge: Stable Discharge Disposition: Discharge Home Discharge Time: <= 30 minutes Discharge Instructions DIET: Follow Instructions for: Heart Healthy Diet Activities you can perform: Regular-No Restrictions Follow up Referrals: Nephrology PCP Follow-up - 1 Week New Medications: Bumetanide (Bumetanide) 1 Mg Tab 2 MG PO BID@,18 Blood Pressure Management #60 Ref 3 TAB Mycophenolate (Cellcept) 250 Mg Cap 250 MG PO BID@, Prevent Transplant Reject #60 Ref 3 CAP Prednisone (Prednisone) 5 Mg Tab 15 MG PO DAILY Control Inflammation #30 Ref 3 TAB Sevelamer Carbonate (Renvela) 800 Mg Tab 1600 MG PO TIDAC Electrolyte Replacement #90 Ref 3 TAB Continued Medications: Pantoprazole (Pantoprazole) 40 Mg Tab 40 MG PO DAILY #30 TAB Discontinued Medications: Furosemide (Lasix) 40 Mg Tab 40 MG PO DAILY #30 Ref 0 TAB Mycophenolate (Cellcept) 500 Mg Tab 500 MG PO BID@18 #60 TAB Nifedipine ER 24 HR (Nifedipine ER 24 HR) 60 Mg Tab 60 MG PO DAILY #30 TAB Prednisone (Prednisone) 20 Mg Tab 20 MG PO DAILY #30 TAB Surendra Cooper MD Jan 21, 2017 13:40
[2017-01-21] MEDS ORDERED: THROMBIN (TOPICAL) 5,000 UNIT VIAL ONE (14:06)
[2017-01-21] MEDS ORDERED: GELATIN 12 MM/7 MM FOAM TOPICAL ONE (14:57)
--- NOTE | 2017-01-21 15:04 | PD.RAD ---
Post Procedure Progress Note Pre Procedure Diagnosis: (1) Thrombocytopenia (2) Renal failure Post Procedure Diagnosis: (1) Thrombocytopenia (2) ESRD (end stage renal disease) on dialysis Procedure Date: Jan 21, 2017 Supervising Radiologist: Bj Prince JR Proceduralist/Assist: RT Erik(R)() Anesthesia: Local Plan of Activity Patient to Unit: Nursing Unit Patient Condition: Good Additional Comments: Right permcath no longer needed. Removed without difficulty. Patient has thrombocytopenia. Tract laced with thrombin. Suture placed to aide in hemostasis. Hemostasis noted following procedure. Suture will need to be removed in approx 10-14 days. See PACS Report for procedural detail/treatment Jr. Suresh,Bj Donovan MD Jan 21, 2017 15:04
--- NOTE | 2017-01-21 15:55 | RADRPT ---
EXAM DATE/TIME: 01/21/2017 00:00 [facility] COMPARISON: No previous studies available for comparison. INDICATIONS : Patient with a history of renal disease, permcath no longer needed. Has a newly placed left arm fistu la. Patient has thrombocytopenia. MEDICAL HISTORY : Glomerulonephritis HTN Anemia SURGICAL HISTORY : Ortho surgery on hands and feet ENCOUNTER: Subsequent ACUITY: 3 months PAIN SCORE: 0/10 IMAGE SERIES: 0 MEDICATION(S): 1.) 5,000 units Thrombin SC 2.) gelfoam Topical DEVICE(S): 1.) 14 Slovak 27 cm Mustafa II Plus catheter PROCEDURE : 1. PermaCath removal. The risks, benefits and alternatives to the procedure were explained and verbal and written consent w as obtained. The site was prepped in sterile fashion. Full sterile technique was used, including ca p, mask, sterile gloves and gown and a large sterile sheet. Hand hygiene and 2% chlorhexidine and/or betadine/alcohol prep was utilized per protocol for cutaneous antisepsis. The skin and subcutaneous tissues were infiltrated with local anesthetic solution. The tract was anesthetized with 1% Lidocaine using. The Permcath was dissected from the subcutaneous tissues and easily removed in one piece. The tract was laced with thrombin to aid in hemostasis in this patient with thrombocytopenia. A horizontal mattress suture was also placed to aid in hemostasis . Following the procedure hemostasis was noted in Sterile dressing was applied. The patient tolerated the procedure well and there were no complications. CONCLUSION: Uncomplicated Permcath removal. A suture was placed to aid in hemostasis in this patient with thrombo cytopenia. The suture will need to be removed in 2-3 weeks. This was discussed with the patient who asha garcia. Bj Prince Jr., MD on January 21, 2017 at 15:52 Board Certified Radiologist. This report was verified electronically.
[2017-01-21 16:00] VITALS: BP 157/85; PULSE 75; RESP 18; TEMP 97; O2SAT 99
[2017-01-21] MEDS ORDERED: MYCOPHENOLATE MOFETIL 250 MG CAP PO SCH (18:00)
[2017-03-04] MEDS ORDERED: PRED20 PO (09:06)
[2017-03-26] MEDS ORDERED: MULTTAB67 PO (13:47)
[2017-03-26] MEDS ORDERED: MAGO400T2 (14:02)
[2017-03-26] MEDS ORDERED: POTA10CA PO (14:02)
[2017-03-26] MEDS ORDERED: LOSA50TA PO (14:02)
[2017-03-26] MEDS ORDERED: LOPE-1 PO (14:06)
[2017-03-26] MEDS ORDERED: SACC1CAP3 PO (14:06)
[2017-03-26] MEDS ORDERED: PEPT262S PO (14:06)
[2017-03-26] MEDS ORDERED: GAS-CAP3 PO (14:06)
[2017-03-26] MEDS ORDERED: CIPR500T2 PO (15:09)
[2017-04-01] MEDS ORDERED: LOSA100T PO (10:13)
== END 2017-01-21 17:38 | disposition home or self-care (01) | DRG 673 ==
LOC: NEPC 19:54 → NEDA 23:10 → NEPFCDU 12-26 03:40 → N03A 12-28 07:47 → HOCA 12-29 17:33 → HCIS 01-07 13:34 → HOCB 01-13 16:33
PROVIDERS: ADMIT Hospitalist; ATTEND Hospitalist
PROC: 0W9G3ZX Drainage of Peritoneal Cavity, Percutaneous Approach, Diagnostic (ICD-10-PCS; 2016-12-28)
PROC: 5A1D60Z (ICD-10-PCS; 2016-12-31)
PROC: 05HM33Z Insertion of Infusion Device into Right Internal Jugular Vein, Percutaneous Approach (ICD-10-PCS; 2016-12-31)
PROC: 30233N1 Transfusion of Nonautologous Red Blood Cells into Peripheral Vein, Percutaneous Approach (ICD-10-PCS; 2017-01-07)
PROC: 6A551Z2 Pheresis of Platelets, Multiple (ICD-10-PCS; 2017-01-07)
PROC: 03180ZF Bypass Left Brachial Artery to Lower Arm Vein, Open Approach (ICD-10-PCS; principal; 2017-01-07 10:23)
DX: N17.9 Acute kidney failure, unspecified (principal); J18.9 Pneumonia, unspecified organism; R65.20 Severe sepsis without septic shock; I81 Portal vein thrombosis; A41.9 Sepsis, unspecified organism; K76.6 Portal hypertension; E88.89 Other specified metabolic disorders; D69.59 Other secondary thrombocytopenia; I12.0 Hypertensive chronic kidney disease with stage 5 chronic kidney disease or end stage renal disease; J98.11 Atelectasis; K70.31 Alcoholic cirrhosis of liver with ascites; E87.70 Fluid overload, unspecified; N18.6 End stage renal disease; I51.7 Cardiomegaly; M06.9 Rheumatoid arthritis, unspecified; F41.9 Anxiety disorder, unspecified; F32.9 Major depressive disorder, single episode, unspecified; Z88.1 Allergy status to other antibiotic agents; R00.0 Tachycardia, unspecified; F10.21 Alcohol dependence, in remission; D63.8 Anemia in other chronic diseases classified elsewhere; R74.8 Abnormal levels of other serum enzymes; R73.9 Hyperglycemia, unspecified; K29.70 Gastritis, unspecified, without bleeding; K57.90 Diverticulosis of intestine, part unspecified, without perforation or abscess without bleeding; K64.4 Residual hemorrhoidal skin tags; K64.8 Other hemorrhoids; R51 Headache; Z99.2 Dependence on renal dialysis; B00.1 Herpesviral vesicular dermatitis; E66.9 Obesity, unspecified; D73.1 Hypersplenism; R06.82 Tachypnea, not elsewhere classified
CPT/HCPCS: 36430; 36558; 36589; 49082; 71010; 74176; 76700; 76937; 77001; 80048; 80053; 80069; 80076; 81001; 82042; 82105; 82150; 82272; 82550; 82948; 83540; 83550; 83605; 83615; 83690; 83880; 84100; 84155; 84157; 84484; 85007; 85014; 85018; 85025; 85027; 85610; 85730; 86850; 86900; 86901; 86920; 87040; 87070; 87086; 87205; 87641; 89051; 90935; 93005; 94150; 94664; 96374; 96375; 99152; C1750; C1769; C9113; J0690; J0692; J1170; J1580; J1644; J2250; J2270; J2405; J2720; J3010; J3370; J7030; J7040; J7050; J7512; J7517; J7613; P9016; P9035; P9047; Q4081

== ENCOUNTER 2017-02-19 11:58 | Day surgery (SDC) | payer MEDICAID ==
[~2017-02-19] VITALS: Ht 193 cm; Wt 140.8 kg
[~2017-02-19 11:58] MED LIST changes: +BUME1TAB PO; -FURO1TAB60 PO; +MYCO250 PO; -MYCO500 PO; -NIFE60TA8 PO; -PRED20 PO; +PRED5TAB PO; +SEVEL800 PO
[2017-02-19 12:59] VITALS: BP 152/96; PULSE 90; RESP 18; TEMP 98.4; O2SAT 98
[2017-02-19] MEDS ORDERED: PRED5TAB PO (13:08)
[2017-02-19] MEDS ORDERED: VITATAB11 PO (13:08)
[2017-02-19] MEDS ORDERED: MULT-135 PO (13:08)
[2017-02-19 13:11] LABS: AUTOMATED NEUTROPHIL # 5.5 TH/MM3 (1.8-7.7); BASOPHIL % 0.5 % (0.0-2.0); EOSINOPHIL # 0.4 TH/MM3 (0-0.4); EOSINOPHIL % 4.9 % (0.0-4.0); HEMATOCRIT 27.8 % (39.0-51.0); HEMO FLAGS DIFF FINAL; LYMPH % 19.4 % (9.0-44.0); LYMPHOCYTE # 1.7 TH/MM3 (1.0-4.8); MEAN CELL VOLUME 90.6 FL (80.0-100.0); MEAN CORPUSCULAR HEMOGLOBIN 31.2 PG (27.0-34.0); MEAN CORPUSCULAR HGB CONC 34.5 % (32.0-36.0); MONO % 11.8 % (0.0-8.0); NEUT % 63.4 % (16.0-70.0); PLATELET COUNT 115 TH/MM3 (150-450); RED BLOOD COUNT 3.07 MIL/MM3 (4.50-5.90); RED CELL DISTRIBUTION WIDTH 13.7 % (11.6-17.2); WHITE BLOOD COUNT 8.6 TH/MM3 (4.0-11.0)
[2017-02-19 13:17] LABS: PROTHROMBIN TIME - PATIENT 10.7 SEC (9.8-11.6)
[2017-02-19 13:41] LABS: BICARBONATE 23.7 MEQ/L (21.0-32.0)
[2017-02-19 13:46] LABS: POTASSIUM 2.9 MEQ/L (3.5-5.1)
[2017-02-19] MEDS ORDERED: POTASSIUM CHLORIDE 20 MEQ CONTROLLED RELEASE TAB PO ONE ×2 (13:51→14:15)
[2017-02-19] MEDS ORDERED: HEPARIN-NS/PF INJ 500 ML ONE (14:21)
[2017-02-19] MEDS ORDERED: MIDAZOLAM HCL 2 MG/2 ML VIAL ONE ×2 (14:21→14:35)
[2017-02-19] MEDS ORDERED: HEPARIN SODIUM - IV 10,000 UNITS/10 ML VIAL ONE (14:21)
--- NOTE | 2017-02-19 15:30 | MA ---
cc: JEWEL CONCEPCION DATE: 02/19/2017 REOPERATIVE DIAGNOSIS Left upper extremity swelling. Hx of AVF POSTOPERATIVE DIAGNOSIS Left upper extremity swelling. Hx of AVF PROCEDURE Fistulogram of the left upper extremity. DETAILS OF PROCEDURE The patient's left upper extremity was prepped and draped in a sterile fashion after being under moderate sedation. I got access to the left upper extremity AV fistula using a 21-gauge needle and exchanged over a thin wire for a 4-Mauritanian micropuncture catheter. I then shot a left upper extremity fistulogram which showed that the arterial anastomosis was widely patent. The outflow cephalic vein was patent. The subclavian, axillary and innominate veins were clearly patent and the confluence of the innominate into the subclavian appeared to be patent as well. At the end of the procedure I pulled my catheter out and applied pressure to the left upper extremity. DO JESSICA Mckeon/RON /3:11 PM /3:23 PM MTDRos
[2017-02-19] MEDS ORDERED: IOHEXOL 350 MG/ML 50 ML BTL (for Cath Lab) OTHER ONE (16:48)
[2017-03-04] MEDS ORDERED: PRED20 PO (09:06)
[2017-03-26] MEDS ORDERED: MULTTAB67 PO (13:47)
[2017-03-26] MEDS ORDERED: LOSA50TA PO (14:02)
[2017-03-26] MEDS ORDERED: MAGO400T2 (14:02)
[2017-03-26] MEDS ORDERED: POTA10CA PO (14:02)
[2017-03-26] MEDS ORDERED: LOPE-1 PO (14:06)
[2017-03-26] MEDS ORDERED: SACC1CAP3 PO (14:06)
[2017-03-26] MEDS ORDERED: GAS-CAP3 PO (14:06)
[2017-03-26] MEDS ORDERED: PEPT262S PO (14:06)
[2017-03-26] MEDS ORDERED: CIPR500T2 PO (15:09)
[2017-04-01] MEDS ORDERED: LOSA100T PO (10:13)
== END 2017-02-19 16:52 | disposition home or self-care (01) ==
LOC: HDOC 11:58 → HDIC 11:58 → HDOC 16:52
PROVIDERS: ATTEND Surgery
DX: M79.89 Other specified soft tissue disorders (principal); N18.6 End stage renal disease; I77.0 Arteriovenous fistula, acquired
CPT/HCPCS: 75820; 80048; 85025; 85610; J1644; J2250; J3010; Q9967

== ENCOUNTER → 2017-02-21 | Outpatient (CLI) | payer MEDICARE, MEDICAID ==
[~2017-02-21] MED LIST changes: +CIPR500T2 PO; +GAS-CAP3 PO; +LOPE-1 PO; +LOSA100T PO; +LOSA50TA PO; +MAGO400T2; +MULT-135 PO; +MULTTAB67 PO; -PANT40TA3 PO; +PEPT262S PO; +POTA10CA PO; +PRED20 PO; +SACC1CAP3 PO; -SEVEL800 PO; +VITATAB11 PO
[2017-02-21 10:22] LABS: HEMATOCRIT 30.1 % (39.0-51.0); MEAN CELL VOLUME 90.7 FL (80.0-100.0); MEAN CORPUSCULAR HEMOGLOBIN 31.2 PG (27.0-34.0); MEAN CORPUSCULAR HGB CONC 34.4 % (32.0-36.0); PLATELET COUNT 124 TH/MM3 (150-450); RED BLOOD COUNT 3.32 MIL/MM3 (4.50-5.90); RED CELL DISTRIBUTION WIDTH 13.9 % (11.6-17.2); REVIEW FLAG FINAL; WHITE BLOOD COUNT 8.6 TH/MM3 (4.0-11.0)
[2017-02-21 11:03] LABS: BICARBONATE 23.1 MEQ/L (21.0-32.0)
--- NOTE | 2017-02-21 11:52 | RADRPT ---
EXAM DATE/TIME: 02/21/2017 10:31 [facility] COMPARISON: CHEST SINGLE AP, December 25, 2016, 21:45. INDICATIONS : Evaluate for pneumonia, pneumothorax, or communicable disease. Pre op for fistula. MEDICAL HISTORY : None. SURGICAL HISTORY : None. ENCOUNTER: Initial ACUITY: 1 day PAIN SCORE: 0/10 LOCATION: Bilateral chest FINDINGS: PA and lateral views of the chest demonstrate cardiac silhouette size of the upper limits for normal. There is no effusion, consolidation, or pneumothorax. The bones and soft tissues demonstrate no acut e abnormality. CONCLUSION: No acute cardiopulmonary abnormality is identified. Cardiac silhouette size remains at the upper limi ts for normal. Derek Monet MD on February 21, 2017 at 11:48 Board Certified Radiologist. This report was verified electronically.
--- NOTE | 2017-02-21 13:48 | EKG ---
Date Performed: 02/21/2017 Time Performed: 10:11:19 PTAGE: 46 years EKG: Sinus rhythm LOW QRS VOLTAGE IN PRECORDIAL LEADS PATTERN CONSISTENT WITH PULMONARY DISEASE MODERATE INTRAVENTRICU LAR CONDUCTION DELAY ABNORMAL ECG NO PREVIOUS TRACING DOCTOR: Hayden Ovalle Interpretating Date/Time 02/21/2017 13:46:12
== END ==
LOC: CPRE 09:14
PROVIDERS: ATTEND Surgery
DX: Z01.810 Encounter for preprocedural cardiovascular examination (principal); Z01.811 Encounter for preprocedural respiratory examination; Z01.812 Encounter for preprocedural laboratory examination; N18.6 End stage renal disease; R94.31 Abnormal electrocardiogram [ECG] [EKG]
CPT/HCPCS: 36415; 71020; 80048; 85027; 93005

== ENCOUNTER 2018-01-24 00:30 | Emergency (ER) | payer MEDICARE, MEDICAID, OTHER ==
[~2018-01-24] VITALS: Ht 193 cm; Wt 135.0 kg
[~2018-01-24 00:30] MED LIST changes: +AUGM875T3 PO; -CIPR500T2 PO; -GAS-CAP3 PO; +HYDR-3516 PO; -LOPE-1 PO; -LOSA50TA PO; -MULT-135 PO; -MYCO250 PO; -PEPT262S PO; -PRED20 PO; -PRED5TAB PO
[2018-01-24 00:57] VITALS: BP 143/84; PULSE 100; RESP 20; TEMP 99.4; O2SAT 96
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
[2018-01-24] MEDS ORDERED: LORazepam 2 MG/ML VIAL IM ONE (01:30)
[2018-01-24] MEDS ORDERED: OMEP20TA93 PO (02:00)
[2018-01-24] MEDS ORDERED: LOSA100T PO (02:00)
[2018-01-24 06:55] VITALS: BP 124/71; PULSE 92; RESP 20; TEMP 98.9; O2SAT 98
--- NOTE | 2018-01-24 08:53 | PD ---
Physical Exam Date Seen by Provider: Jan 24, 2018 Time Seen by Provider: 08:52 Narrative 47-year-old male previously medically cleared for psychiatric evaluation, has been seen and evaluated by psychiatric staff. Patient has been deemed psychiatrically stable for discharge at this time. Patient remains medically stable at this time. Follow-up will be based on psychiatric note. Data Data Last Documented VS Vital Signs Date Time Temp Pulse Resp B/P (MAP) Pulse Ox O2 Delivery O2 Flow Rate FiO2 01/24/18 06:55 98.9 92 20 124/71 (88) 98 Room Air Orders Orders Psych Screen (01/24/18 01:12) Lorazepam Inj (Ativan Inj) (01/24/18 01:30) Diet Regular Basic (01/24/18 Breakfast) MDM Medical Record Reviewed: Yes Supervised Visit with DK: Yes Narrative Course 47-year-old male previously medically cleared for psychiatric evaluation, has been seen and evaluated by psychiatric staff. Patient has been deemed psychiatrically stable for discharge at this time. Patient remains medically stable at this time. Follow-up will be based on psychiatric note. Diagnosis Primary Impression: Medical clearance for psychiatric admission Patient Instructions: General Instructions Disposition: DISCHARGE HOME Condition: Stable Alberto Herrera Jan 24, 2018 08:53
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
== END 2018-01-24 13:35 | disposition home or self-care (01) ==
LOC: NEPE 00:30 → NEPJ 13:35
DX: F10.14 Alcohol abuse with alcohol-induced mood disorder (principal)
CPT/HCPCS: 96372; 99284; J2060